=== PATIENT | female | born 1960 | race Hispanic/Latino ===

== ENCOUNTER 2021-12-25 20:51 | Observation (INO) | payer SELFPAY ==
[2021-12-25] VITALS (8 sets, daily range): BP systolic 207–225; BP diastolic 81; PULSE 88–93; RESP 13–19; TEMP 36.6; O2SAT 99–100
--- NOTE | ~2021-12-25 | CT_ITS ---
EXAMINATION: CT brain wo con DATE: 12/25/2021 21:47 INDICATION: Weakness. Prior CVA. Headache. TECHNIQUE: Computed tomography (CT) of the head was performed without intravenous contrast. The dose- length product was 605.33 mGy-cm. Automated exposure control and iterative reconstruction technique w ere employed. COMPARISON: CT dated 01/01/2019 FINDINGS: There are sequela of large left hemispheric paranasal sinuses and mastoids are pneumatized. No depressed skull fractures. Infarction involving the parietal lobe and occipital lobe as well as t he left basal ganglia. There is encephalomalacia with compensatory dilation of the left lateral ventr icle. No significant midline shift. No acute infarction, hemorrhage, mass or mass effect. IMPRESSION: 1. No acute intracranial abnormality. No significant interval change. Reviewed, dictated and finalized at location A.
--- NOTE | ~2021-12-25 | XR_ITS ---
XR chest 1V portable 12/25/2021 21:40 Indication: Weakness and headache. Procedure: AP portable chest Comparison: Comparison to multiple prior studies sequentially, with oldest reviewed study dated 09/2018. Findings: Cardiomegaly. No focal air space disease, pulmonary edema, pleural effusion or suspected pn eumothorax. Impression: 1: No acute cardiopulmonary disease. Reviewed, dictated and finalized at location A. Impression: 1: No acute cardiopulmonary disease.
--- NOTE | ~2021-12-25 | MR_ITS ---
EXAMINATION: MR brain/brain stem wo con DATE: 12/26/2021 14:27 INDICATION: Altered mental status. TECHNIQUE: Magnetic resonance imaging (MRI) of the brain and brainstem was performed without intraven ous contrast. COMPARISON: Brain MRI 08/03/2018, head CT 12/25/2021 FINDINGS: There is an old infarct involving the left frontal, parietal, temporal, and occipital lobes , left insula, lateral aspect of the left basal ganglia, and left thalamus in the expected distributi on of left middle cerebral artery. There is chronic Wallerian degeneration involving left cerebral pe duncle and farrukh. There is a small old microhemorrhage in left thalamus. There are scattered areas of nonspecific increased T2-weighted signal intensity in the right-sided cerebral white matter, which is within normal limits for the patient's age. There is no intracranial hemorrhage, acute infarction, o r abnormal intracranial mass lesion. There is ex vacuo dilatation of left lateral ventricle. The orbi ts are normal. There is mild mucosal thickening in the paranasal sinuses. The mastoid air cells are n ormal. IMPRESSION: 1. Old infarct in the expected distribution of left middle cerebral artery. Reviewed, dictated and finalized at location A.
--- NOTE | 2021-12-25 21:19 | ECG_ITS ---
Measurements Intervals [place] Rate: 89 P: 63 AR: 183 QRS: -6 QRSD: 79 T: 59 QT: 359 QTc: 438 Interpretive Statements SINUS RHYTHM LEFT VENTRICULAR HYPERTROPHY AND ST-T CHANGE INFERIOR INFARCT, AGE INDETERMINATE ABNORMAL ECG COMPARED TO ECG 01/01/2019 20:51:31 MYOCARDIAL INFARCT FINDING NOW PRESENT Electronically Signed On 12-25-2021 21:41:13 CDT by Yosvany Markham D.O.
--- NOTE | 2021-12-25 21:22 | ED.GENADULT ---
HPI - General Adult General Chief complaint: Altered Mental Status Stated complaint: altered mental status Time Seen by Provider: 12/25/21 21:11 History of Present Illness HPI narrative: Patient 61-year-old female who presents the emergency department with chief complaint of weakness. Per the patient's family the patient was eating and then became unresponsive. Patient also has been complaining of frequency and burning with urination. Per the family she had a stroke in 2019 and has weakness on her right side and also having difficulty with expressing words. Related Data Home Medications Medication Instructions Recorded Confirmed amlodipine 5 mg tablet 5 mg PO DAILY 01/31/19 01/31/19 aspirin 81 mg chewable tablet 81 mg PO DAILY 01/31/19 01/31/19 atorvastatin 40 mg tablet 40 mg PO DAILY 01/31/19 01/31/19 gabapentin 300 mg capsule 300 mg PO TID 01/31/19 01/31/19 insulin glulisine U-100 100 20 unit subcut HS 01/31/19 01/31/19 unit/mL subcutaneous pen lisinopril 40 mg tablet (Zestril) 40 mg PO DAILY 01/31/19 01/31/19 metformin 1,000 mg tablet 1,000 mg PO BID 01/31/19 01/31/19 metoprolol tartrate 50 mg tablet 50 mg PO Q12H 01/31/19 01/31/19 sertraline 100 mg tablet 100 mg PO DAILY 01/31/19 01/31/19 Allergies Allergy/AdvReac Type Severity Reaction Status Date / Time No Known Allergies Allergy Unknown Verified 01/01/19 22:02 No Known Allergies Allergy Uncoded 01/01/19 22:02 Review of Systems Review of Systems: A 10 system review of systems was completed on the patient and is negative except for what is stated in the HPI. Nursing and ancillary documentation was reviewed. PMFSH Social History Social History Smoking status: Never smoker Comments CVA, hypertension, diabetes, high cholesterol Exam Narrative: GENERAL: Well-appearing, well-nourished, and in no acute distress. HEAD: Normocephalic, atraumatic. EYES: PERRLA and EOMI. ENT: Nares clear, no rhinorrhea or epistaxis. Mucous membranes moist. NECK: Supple. CHEST: Clear to auscultation. No respiratory distress. HEART: Regular rate and rhythm. No murmur heard. Normal peripheral pulses. ABDOMEN: Soft, nontender, nondistended, normal active bowel sounds. EXTREMITIES: Right-sided weakness. No edema. SKIN: Warm, dry, no rash. NEURO: No focal deficits. Alert and oriented x3. PSYCH: Normal mood and affect. Course Vital Signs Vital signs: Vital Signs Temperature 36.6 C 12/25/21 20:55 Pulse Rate 89 12/25/21 20:55 Respiratory Rate 18 12/25/21 20:55 Blood Pressure 225/81 H 12/25/21 20:55 Pulse Oximetry 100 12/25/21 20:55 Oxygen Delivery Room Air 12/25/21 20:55 Temperature 36.6 C 12/25/21 20:55 Pulse Rate 90 12/25/21 21:10 Respiratory Rate 18 12/25/21 20:55 Blood Pressure 225/81 H 12/25/21 20:55 Pulse Oximetry 100 12/25/21 20:55 Oxygen Delivery Room Air 12/25/21 20:55 Medical Decision Making Vital Signs Vital Signs: Vital Signs Temperature 36.6 C 12/25/21 20:55 Pulse Rate 89 12/25/21 20:55 Respiratory Rate 18 12/25/21 20:55 Blood Pressure 225/81 H 12/25/21 20:55 Pulse Oximetry 100 12/25/21 20:55 Oxygen Delivery Room Air 12/25/21 20:55 Temperature 36.6 C 12/25/21 20:55 Pulse Rate 90 12/25/21 21:10 Respiratory Rate 18 12/25/21 20:55 Blood Pressure 225/81 H 12/25/21 20:55 Pulse Oximetry 100 12/25/21 20:55 Oxygen Delivery Room Air 12/25/21 20:55 Discharge Plan Discharge Prescriptions: No Action atorvastatin 40 mg Tablet 40 mg PO DAILY sertraline 100 mg Tablet 100 mg PO DAILY amlodipine 5 mg Tablet 5 mg PO DAILY metformin 1,000 mg Tablet 1,000 mg PO BID metoprolol tartrate 50 mg Tablet 50 mg PO Q12H gabapentin 300 mg Capsule 300 mg PO TID aspirin 81 mg Tablet,Chewable 81 mg PO DAILY lisinopril [Zestril] 40 mg Tablet 40 mg PO DAILY i
[2021-12-25 23:10] LABS: Basophils Absolute Auto 0.1 K/mm3 (0.0-0.1); Basophils Percent Auto 0.8 % (0.2-1.2); Eosinophils Absolute Auto 0.2 K/mm3 (0-0.3); Eosinophils Percent Auto 2.2 % (0-4.4); Hematocrit 27.2 % (37.0-47.0); Hemoglobin 8.6 g/dL (12.0-15.0); Immature Granulocyte Absolute 0.03 K/mm3 (0.00-0.031); Immature Granulocyte Percent A 0.3 % (0-0.5); Lymphocytes Absolute Auto 2.08 K/mm3 (0.9-3.2); Lymphocytes Percent Auto 22.6 % (18.3-44.2); Mean Corpuscular HGB Conc 31.6 g/dl (32-36); Mean Corpuscular Hemoglobin 28.8 pg (26-34); Mean Platelet Volume 10.4 fl (7.4-10.4); Monocytes Absolute Auto 0.4 K/mm3 (0.1-0.6); Monocytes Percent Auto 4.5 % (2.6-8.5); Neutrophils Absolute Auto 6.4 K/mm3 (1.3-6.7); Neutrophils Percent Auto 69.6 % (45.5-73.1); Platelet Count Result 323 k/mm3 (150-375); Red Blood Count 2.99 M/mm3 (4.2-5.4); Red Cell Distribution Width 12.3 % (11.5-14.5); White Blood Count 9.2 K/mm3 (4.5-10.0)
[2021-12-25 23:20] LABS: Alanine Aminotransferase 22 U/L (6-35); Albumin Level 3.7 g/dL (3.5-5.1); Alkaline Phosphatase 81 U/L (38-126); Anion Gap 11 mmol/L (8-16); Aspartate Amino Transferase 22 U/L (14-36); Bilirubin,Total 0.6 mg/dL (0.2-1.3); Blood Urea Nitrogen 31 mg/dL (7-17); Calcium 8.8 mg/dL (8.4-10.2); Carbon Dioxide 25 mmol/L (22-30); Chloride 98 mmol/L (98-107); Estimated Glomerular Filt Rate 33; Glucose 230 mg/dL (65-110); Magnesium 1.6 mg/dL (1.6-2.3); Potassium 4.3 mmol/L (3.4-5.0); Sodium 134 mmol/L (137-145)
[2021-12-25 23:23] LABS: INR 1.2; Partial Thromboplastin Time 28.7 SECONDS (22.3-36.8); Prothrombin Time 14.7 Seconds (11.1-14.7)
[2021-12-25 23:45] LABS: Troponin I 0.051 ng/mL (0.000-0.034)
[2021-12-26] VITALS (16 sets, daily range): BP systolic 154–206; BP diastolic 60–99; PULSE 77–87; RESP 14–20; TEMP 36.3–36.9; O2SAT 97–100; BMI 28.9
[2021-12-26 01:11] LABS: Appearance Urine Clear (Clear); Bilirubin Urine Negative (Negative); Color Urine Yellow (Yellow); Glucose Urine UA Trace mg/dL (Negative); Ketones Urine Negative (Negative); Leukocyte Esterase Ur 1+ LEU/UL (Negative); Nitrate Urine Negative (Negative); Protein Urine 2+ mg/dL (Negative); Urobilinogen Urine 0.2 mg/dL (<2.0)
[2021-12-26 01:13] LABS: Add Urine Microscopic? YES; Blood Urine Trace (Negative)
[2021-12-26 01:19] LABS: Bacteria Urine 3+ /hpf; RBC Urine 0-2 /hpf (0-2); WBC Urine 0-3 /hpf
[2021-12-26 02:45] LABS: Troponin I 0.053 ng/mL (0.000-0.034)
--- NOTE | 2021-12-26 02:56 | PM.IMHP ---
H&P: HPI History of Present Illness Date/Time: 12/26/21 02:56 Chief Complaint: nausea and vomiting PMFSH Social History Social History Smoking status: Never smoker Alcohol intake: never Substance use: never Spiritual care concerns: No Meds Home Medications and Allergies Home Medications Medication Instructions Recorded Confirmed Type aspirin 81 mg chewable tablet 81 mg PO DAILY 01/31/19 12/26/21 History atorvastatin 40 mg tablet 40 mg PO DAILY 01/31/19 12/26/21 History metformin 1,000 mg tablet 1,000 mg PO BID 01/31/19 12/26/21 History sertraline 100 mg tablet 100 mg PO DAILY 01/31/19 12/26/21 History insulin detemir U-100 100 unit/mL 10 unit subcut DAILY 12/26/21 12/26/21 History subcutaneous solution (Levemir U-100 Insulin) lisinopril 20 1 tablet PO DAILY 12/26/21 12/26/21 History mg-hydrochlorothiazide 25 mg tablet Allergies Allergy/AdvReac Type Severity Reaction Status Date / Time No Known Allergies Allergy Unknown Verified 01/01/19 22:02 No Known Allergies Allergy Uncoded 01/01/19 22:02 Vital Signs Vital Signs - 24 hr 12/25/21 20:55 12/25/21 21:10 12/25/21 21:05 Temperature 97.8 F Pulse Rate 89 90 93 Respiratory Rate 18 19 Blood Pressure 225/81 H Pulse Oximetry 100 Oxygen Delivery Room Air 12/25/21 21:09 12/25/21 21:15 12/25/21 21:17 Temperature Pulse Rate 90 89 91 Respiratory Rate 18 19 19 Blood Pressure 225/81 H 207/81 H Pulse Oximetry 99 100 100 Oxygen Delivery 12/25/21 22:02 12/25/21 22:15 Temperature Pulse Rate 88 90 Respiratory Rate 13 16 Blood Pressure Pulse Oximetry 99 Oxygen Delivery H&P: Results Labs Labs: Short CBC 12/25/21 Range/Units 23:04 WBC 9.2 (4.5-10.0) K/mm3 Hgb 8.6 L (12.0-15.0) g/dL Hct 27.2 L (37.0-47.0) % Plt Count 323 (150-375) k/mm3 [facility] 12/25/21 23:04 Sodium 134 L Potassium 4.3 Chloride 98 Carbon Dioxide 25 BUN 31 H Creatinine 1.60 H Glucose 230 H Calcium 8.8 Cardiac Enzymes 12/25/21 12/26/21 Range/Units 23:04 02:13 Troponin I 0.051 H* 0.053 H* (0.000-0.034) ng/mL Liver Function 12/25/21 Range/Units 23:04 Total Bilirubin 0.6 (0.2-1.3) mg/dL AST 22 (14-36) U/L ALT 22 (6-35) U/L Alkaline Phosphatase 81 (38-126) U/L Albumin 3.7 (3.5-5.1) g/dL Urine 12/26/21 Range/Units 01:00 Urine Color Yellow (Yellow) Urine Appearance Clear (Clear) Urine pH 6.0 (5.0-9.0) Ur Specific [place] 1.010 (1.001-1.035) Urine Protein 2+ H (Negative) mg/dL Urine Glucose (UA) Trace H (Negative) mg/dL Assessment and Plan Assessment and plan (1) Urinary tract infection: Code(s): N39.0 - Urinary tract infection, site not specified Status: Acute (2) Chronic arterial ischemic stroke: Code(s): I69.30 - Unspecified sequelae of cerebral infarction Status: Acute (3) Right hemiparesis: Code(s): G81.91 - Hemiplegia, unspecified affecting right dominant side Status: Acute (4) Expressive aphasia: Code(s): R47.01 - Aphasia Status: Acute
[2021-12-26 03:28] LABS: SARS-CoV-2 RNA PCR Negative
[2021-12-26] MEDS: SODIUM CHLORIDE 0.9% IV 1,000 ML 125 ML IV CONT (04:14)
[2021-12-26] MEDS: ASPIRIN 81 MG CHEWABLE TABLET 324 MG PO (04:15)
--- NOTE | 2021-12-26 04:17 | PC.NURSE ---
Brandi Lopez RN, Job Foreman informed this nurse that 3 attempts were made to use the [employer] automatic pinsetter mechanic with 3 different interpreters, all who the patient was unable to understand. Son is currently at bedside.
--- NOTE | 2021-12-26 04:18 | ADMGEN ---
This patient, Rafaela Hale, was admitted to IMU Room 202-01. Patient/family oriented to hospital policies and general routines including ID bracelet, bed and alarms, visiting hours, pain management, procedures, bathroom and other care routines, personal items, smoking policy, room service/diet, and visiting hours. Information on how to activate the Rapid Response Team has been discussed. Patient/Family are encouraged to report perceived risks to care and to ask questions if they do not understand what they are told or what they should do.
[2021-12-26 05:28] LABS: Hematocrit 27.5 % (37.0-47.0); Hemoglobin 8.6 g/dL (12.0-15.0)
[2021-12-26 05:54] LABS: Troponin I 0.045 ng/mL (0.000-0.034)
[2021-12-26 09:45] LABS: Hematocrit 25.9 % (37.0-47.0); Hemoglobin 8.3 g/dL (12.0-15.0)
[2021-12-26] MEDS: SERTRALINE HCL 50 MG TABLET 100 MG PO (10:50)
[2021-12-26] MEDS: INSULIN GLARGINE (*BKC) 100 UNITS/ML 10 UNITS SUB-Q (10:50)
[2021-12-26] MEDS: ASPIRIN 81 MG CHEWABLE TABLET PO (10:50)
[2021-12-26] MEDS: ATORVASTATIN 40 MG TABLET PO (10:50)
[2021-12-26 11:03] LABS: Glucose Point of Care 243 mg/dl (65-105)
--- NOTE | 2021-12-26 11:28 | PM.IMPN ---
Progress Note: A&P Assessment and Plan (1) Urinary tract infection: Code(s): N39.0 - Urinary tract infection, site not specified Status: Acute (2) Chronic arterial ischemic stroke: Code(s): I69.30 - Unspecified sequelae of cerebral infarction Status: Acute (3) Right hemiparesis: Code(s): G81.91 - Hemiplegia, unspecified affecting right dominant side Status: Acute (4) Expressive aphasia: Code(s): R47.01 - Aphasia Status: Acute Plan # altered mental status. CT head with no acute intracranial abnormality. No significant interval change. There are sequela of large left hemispheric paranasal sinuses and mastoids are pneumatized. Infarction involving the parietal lobe and occipital lobe as well as left basal ganglia. There is in couple of malacia with compensatory dilation of the left lateral ventricle with no significant midline shift. She is on aspirin 81 mg daily and atorvastatin. She was given aspirin 325 mg at night and was also started on ceftriaxone for suspected UTI. Her underlying history of stroke and large encephalomalacia I suspect she might have seizure. Will get an EEG. Will also check CK level. And lactate level. She is back to her baseline and will monitor for any further recurrence of her symptoms. Neurology will be consulted for further evaluation. If recurrence happen we can start her on Keppra. History do not suggestive hypoglycemic attack. # generalized weakness: Found to have questionable UTI positive leukocyte esterase however WBC 0-3. COVID swab negative. She does have CARMEN with creatinine of 1.6. BUN is up to 31 with a baseline 7-8. Troponins are mildly elevated with a flat trajectory. Not suggestive of acute coronary syndrome. Likely due to her underlying renal insufficiency. EKG performed showed nonspecific ST-T changes when compared to previous EKG in 2019 similar changes were also reviewed. Will get echocardiogram. Echo on 2019 showed ejection fraction 60-65% moderate aortic valve sclerosis moderate thickness of the mitral valve the fluids moderate mitral annular calcification. X-ray with no acute cardiopulmonary disease # history of stroke with right sided hemiplegia 2019 # Anemia acute on chronic hemoglobin at 8. Baseline around 10-11 in 2019 # CARMEN creatinine 1.6. Baseline 0.8 back in 2019 # type 2 diabetes with neuropathy and history of foot ulcers in the past on insulin at home # hypertension blood pressure uncontrolled on admission. On lisinopril hydrochlorothiazide at home. With CARMEN he will hold lisinopril hydrochlorothiazide start amlodipine 5 mg daily # DVT prophylaxis Lovenox # code status full code Subjective Date/time seen: 12/26/21 11:28 Interval history: HPI : Patient 61-year-old female who presents the emergency department with chief complaint of weakness.? Per the patient's family the patient was eating and then became unresponsive.? Patient also has been complaining of frequency and burning with urination.? Per the family she had a stroke in 2019 and has weakness on her right side and also having difficulty with expressing words. 12/26/2021 at around 8:30 a.m. patient was noted to be unresponsive while watching TV. She had a meal at 6:00 a.m. she does not take any insulin with this. There have not able to check blood sugar and called 911 while on phone with 911 the patient became more awake however was looking confused. While unresponsive when her daughter tried to wake her up she noted her eyes were rolled back. She did not see any other abnormal movements in her arms or her legs. No tongue bite or urinary incontinence noted. She does not have any history of seizures prior to this. She checked her blood pressure and was noted to be elevated. She did not check her blood sugar but was checked upon arrival of EMS when it was more than 200. They did give a sip of orange juice prior to arrival of EMS. Review of Systems Review of Sys
[2021-12-26 12:21] LABS: Glucose Point of Care 290 mg/dl (65-105)
[2021-12-26 12:43] LABS: Creatine Kinase 31 U/L (30-135)
[2021-12-26] MEDS: amLODIPine BESYLATE 5 MG TABLET PO (13:51)
[2021-12-26] MEDS: ENOXAPARIN 40 MG/0.4 ML SYRINGE SUB-Q (13:51)
[2021-12-26 15:05] LABS: Hematocrit 25.2 % (37.0-47.0)
[2021-12-26 15:18] LABS: Lactic Acid Reflex 1.6 mmol/L (0.7-2.0)
[2021-12-26 18:16] LABS: Glucose Point of Care 343 mg/dl (65-105)
[2021-12-26] MEDS: INSULIN ASPART (*BKC) 100 UNITS/ML SUB-Q (18:30)
[2021-12-26 19:58] LABS: Glucose Point of Care 342 mg/dl (65-105)
[2021-12-26] MEDS: lisinopriL 10 MG TABLET PO (20:39)
[2021-12-26] MEDS: ACETAMINOPHEN 500 MG TABLET 1000 MG PO (20:39)
[2021-12-26] MEDS: INSULIN ASPART (*BKC) 100 UNITS/ML 6 UNITS SUB-Q (20:53)
[2021-12-26 21:27] LABS: Hematocrit 24.6 % (37.0-47.0); Hemoglobin 7.5 g/dL (12.0-15.0)
[2021-12-27] VITALS (13 sets, daily range): BP systolic 152–211; BP diastolic 64–88; PULSE 76–89; RESP 16–20; TEMP 36.1–36.8; O2SAT 96–100
--- NOTE | 2021-12-27 | ECHO_ITS ---
Patient Info Name: Rafaela Hale Age: 61 years : 1960 Gender: Female Ht: 64 in Wt: 168 lbs BSA: 1.88 m2 HR: 77 bpm BP: 152 / 88 mmHg Heart Rhythm: Sinus Rhythm Technical Quality: Fair Exam Date: 12/27/2021 10:20 AM Exam Location: [facility] Patient Status: Inpatient Admit Date: 12/26/2021 Staff Ordering Physician: Joselito Vines MD Stores Clerk: Kimmy Oseguera RDCS Attending Provider: Joselito Vines MD Exam Type: CA echo dop color flow w con Study Info Complete two-dimensional, color flow and Doppler transthoracic echocardiogram is performed with contrast to opacify the left ventricle and to improve the deliniation of the left ventricle endocardial borders. Contrast/Agitated Saline Contrast/Ag. Saline: Definity Amount: 3.00 ml Administered By: Kimmy Oseguera RDCS Existing IV Access: Yes IV Access Condition: patent with no signs of infiltration Summary 1. Left ventricular chamber dimension is normal. 2. Left ventricular systolic function is normal, estimated at 65-70%. 3. There is moderately increased left ventricular wall thickness. 4. The left ventricular diastolic function is grade I diastolic dysfunction. 5. E/e' 13 is mildly elevated. 6. Left atrial chamber dimension is mildly enlarged. 7. There is moderate aortic valve sclerosis. 8. There is mild aortic valve stenosis with a peak velocity of 247.83 cm/s, mean gradient of 11 mmHg, and aortic valve area of 1.56 cm2. 9. The mitral valve has severely calcified annulus. 10. No pulmonary hypertension, estimated pulmonary arterial systolic pressure is 21 mmHg. Left Ventricle E/e' 13 is mildly elevated. Left ventricular chamber dimension is normal. Left ventricular systolic function is normal, estimated at 65-70%. There is moderately increased left ventricular wall thickness. The left ventricular diastolic function is grade I diastolic dysfunction. Right Ventricle Right ventricular systolic function is normal and with normal TAPSE 2.3 cm. Right ventricular chamber dimension is normal. Left Atria Left atrial chamber dimension is mildly enlarged. Right Atria Right atrial chamber dimension is normal. Aortic Valve The aortic valve is trileaflet. There is moderate aortic valve sclerosis. There is mild aortic valve stenosis with a peak velocity of 247.83 cm/s, mean gradient of 11 mmHg, and aortic valve area of 1.56 cm2. There is no aortic valve regurgitation. Pulmonic Valve There is no pulmonic regurgitation. Mitral Valve The mitral valve has severely calcified annulus. There is no mitral valve stenosis. There is no mitral valve regurgitation. Tricuspid Valve There is no tricuspid valve regurgitation. No pulmonary hypertension, estimated pulmonary arterial systolic pressure is 21 mmHg. Pericardium/Pleural There is no pericardial effusion. Inferior Vena Cava Normal inferior vena cava with >50% collapse upon inspiration consistent with normal right atrial pressure, 5 mmHg. Aorta The aortic root size at the sinus of Valsalva is normal. Left Ventricular Outflow Tract Name Value Normal LVOT 2D LVOT Diameter 1.96 cm LVOT Dopp
[2021-12-27 05:32] LABS: Basophils Absolute Auto 0.1 K/mm3 (0.0-0.1); Basophils Percent Auto 0.8 % (0.2-1.2); Eosinophils Absolute Auto 0.2 K/mm3 (0-0.3); Eosinophils Percent Auto 2.8 % (0-4.4); Hematocrit 25.2 % (37.0-47.0); Hemoglobin 7.9 g/dL (12.0-15.0); Immature Granulocyte Absolute 0.02 K/mm3 (0.00-0.031); Immature Granulocyte Percent A 0.3 % (0-0.5); Lymphocytes Absolute Auto 1.82 K/mm3 (0.9-3.2); Lymphocytes Percent Auto 29.8 % (18.3-44.2); Mean Corpuscular HGB Conc 31.3 g/dl (32-36); Mean Corpuscular Hemoglobin 28.5 pg (26-34); Mean Platelet Volume 10.9 fl (7.4-10.4); Monocytes Absolute Auto 0.4 K/mm3 (0.1-0.6); Monocytes Percent Auto 6.9 % (2.6-8.5); Neutrophils Absolute Auto 3.6 K/mm3 (1.3-6.7); Neutrophils Percent Auto 59.4 % (45.5-73.1); Platelet Count Result 300 k/mm3 (150-375); Red Blood Count 2.77 M/mm3 (4.2-5.4); Red Cell Distribution Width 12.1 % (11.5-14.5); White Blood Count 6.1 K/mm3 (4.5-10.0)
[2021-12-27 05:45] LABS: Alanine Aminotransferase 17 U/L (6-35); Albumin Level 3.4 g/dL (3.5-5.1); Alkaline Phosphatase 67 U/L (38-126); Anion Gap 9 mmol/L (8-16); Aspartate Amino Transferase 19 U/L (14-36); Bilirubin,Total 0.2 mg/dL (0.2-1.3); Blood Urea Nitrogen 26 mg/dL (7-17); Calcium 8.6 mg/dL (8.4-10.2); Carbon Dioxide 29 mmol/L (22-30); Chloride 100 mmol/L (98-107); Estimated CRCL calculation 35 ml/min; Estimated Glomerular Filt Rate 35; Glucose 206 mg/dL (65-110); Magnesium 1.6 mg/dL (1.6-2.3); Potassium 3.9 mmol/L (3.4-5.0); Sodium 138 mmol/L (137-145)
[2021-12-27 08:01] LABS: Glucose Point of Care 234 mg/dl (65-105)
--- NOTE | 2021-12-27 08:51 | PM.IMPN ---
Progress Note: A&P Assessment and Plan (1) Urinary tract infection: Code(s): N39.0 - Urinary tract infection, site not specified Status: Acute (2) Chronic arterial ischemic stroke: Code(s): I69.30 - Unspecified sequelae of cerebral infarction Status: Acute (3) Right hemiparesis: Code(s): G81.91 - Hemiplegia, unspecified affecting right dominant side Status: Acute (4) Expressive aphasia: Code(s): R47.01 - Aphasia Status: Acute Plan # altered mental status. CT head with no acute intracranial abnormality. No significant interval change. There are sequela of large left hemispheric paranasal sinuses and mastoids are pneumatized. Infarction involving the parietal lobe and occipital lobe as well as left basal ganglia. There is encephalomalacia with compensatory dilation of the left lateral ventricle with no significant midline shift. She is on aspirin 81 mg daily and atorvastatin. She was given aspirin 325 mg at night and was also started on ceftriaxone for suspected UTI. Her underlying history of stroke and large encephalomalacia I suspect she might have seizure. EEG pending. CK level came back normal. Lactate level was normal. She back to her baseline and will monitor for any further recurrence of her symptoms. Neurology will be consulted for further evaluation. If recurrence happen we can start her on Keppra. History do not suggestive hypoglycemic attack. MRI brain with no acute stroke. Findings of old stroke as seen before. # generalized weakness: Found to have questionable UTI positive leukocyte esterase however WBC 0-3. COVID swab negative. She does have CARMEN with creatinine of 1.6. BUN is up to 31 with a baseline 7-8. Troponins are mildly elevated with a flat trajectory. Not suggestive of acute coronary syndrome. Likely due to her underlying renal insufficiency. EKG performed showed nonspecific ST-T changes when compared to previous EKG in 2019 similar changes were also reviewed. Echo pending. Has a systolic murmur on examination. on 2019 showed ejection fraction 60-65% moderate aortic valve sclerosis moderate thickness of the mitral valve the fluids moderate mitral annular calcification. X-ray with no acute cardiopulmonary disease # history of stroke with right sided hemiplegia 2019 # Anemia acute on chronic hemoglobin at 8. Baseline around 10-11 in 2019 # CARMEN creatinine 1.6. Baseline 0.8 back in 2019. Currently 1.5 with hydration. Likely chronic kidney disease stage 3 # type 2 diabetes with neuropathy and history of foot ulcers in the past on insulin at home # hypertension blood pressure uncontrolled on admission. On lisinopril hydrochlorothiazide at home. With CARMEN he will hold lisinopril hydrochlorothiazide start amlodipine 5 mg daily. Restarted lisinopril 10 mg daily in the evening. Will increase amlodipine to 10 mg daily today # DVT prophylaxis Lovenox # code status full code Subjective Date/time seen: 12/27/21 08:51 Interval history: HPI : Patient 61-year-old female who presents the emergency department with chief complaint of weakness.? Per the patient's family the patient was eating and then became unresponsive.? Patient also has been complaining of frequency and burning with urination.? Per the family she had a stroke in 2019 and has weakness on her right side and also having difficulty with expressing words. 12/26/2021 at around 8:30 a.m. patient was noted to be unresponsive while watching TV. She had a meal at 6:00 a.m. she does not take any insulin with this. There have not able to check blood sugar and called 911 while on phone with 911 the patient became more awake however was looking confused. While unresponsive when her daughter tried to wake her up she noted her eyes were rolled back. She did not see any other abnormal movements in her arms or her legs. No tongue bite or urinary incontinence noted. She does not have any history of sei
[2021-12-27] MEDS: INSULIN GLARGINE (*BKC) 100 UNITS/ML 10 UNITS SUB-Q (09:02)
[2021-12-27] MEDS: INSULIN ASPART (*BKC) 100 UNITS/ML SUB-Q ×4 (09:02→21:47)
[2021-12-27] MEDS: ASPIRIN 81 MG CHEWABLE TABLET PO (09:09)
[2021-12-27] MEDS: ATORVASTATIN 40 MG TABLET PO (09:09)
[2021-12-27] MEDS: SERTRALINE HCL 50 MG TABLET 100 MG PO (09:09)
[2021-12-27] MEDS: amLODIPine BESYLATE 5 MG TABLET 10 MG PO (09:16)
[2021-12-27] MEDS: PERFLUTREN LIPID MICROSPHERES 1.5 ML VIAL DILUTED TO 10 ML TOTAL VOLUME IV PUSH (10:55)
--- NOTE | 2021-12-27 10:55 | IVDEFINITY ---
Prior to administration of IV Definity the patient was educated on the risks and benefits of the imaging enhancing agent including potential adverse side effects. The patient verbalized understanding. Allergies were verified. No exclusion criteria were identified and at least one of the following inclusion criteria were met: 1) physician request, 2) patient technically difficult to image (per the [place] [employer] guidelines of two or more segments not discernable within the apical view), or 3) questionable left ventricular function. ?
--- NOTE | 2021-12-27 11:20 | WPDNEURCNPN ---
Assessment and Plan Assessment and plan (1) Observed seizure-like activity: Code(s): R56.9 - Unspecified convulsions Status: Acute Assessment and Plan: Patient with prior L MCA territory stroke, presenting after an episode of unresponsiveness with eyes rolled back. Concern for possible seizure given extensive encephalomalacia from prior stroke. - Obtain routine EEG Consult date: 12/27/21 Time Seen: 11:20 Reason for consult: Seizure-like activity HPI: Rafaela Hale is a 61 year old female with a history of HTN, DM, and L MCA territory stroke (with baseline R sided weakness and aphasia) presenting after an episode of seizure-like activity. Patient presented on 12/25 after she was found unresponsive while watching TV around 830AM. She was at baseline when she woke up that morning. Daughter witnessed the episode and noted that her eyes were rolled back. There were no other abnormal movements. No tongue biting or incontinence. Afterwards she appeared confused. EMS was called. Her blood glucose was >200. She was taken to [facility]. CT head showed old L MCA territory stroke, but no acute changes. UA was concerning for possible UTI. She had an MRI brain this morning which did not show any evidence of acute stroke. She is back to baseline and has not had any further episodes of seizure-like activity. She has never had seizures in the past. Review of Systems Review of Systems: ROS unobtainable: Yes unobtainable due to medical condition (patient has aphasia) PMFSH Social History Social History Smoking status: Never smoker Alcohol intake: never Substance use: never Spiritual care concerns: No Meds Home Medications and Allergies Home Medications Medication Instructions Recorded Confirmed Type aspirin 81 mg chewable tablet 81 mg PO DAILY 01/31/19 12/26/21 History atorvastatin 40 mg tablet 40 mg PO DAILY 01/31/19 12/26/21 History metformin 1,000 mg tablet 1,000 mg PO BID 01/31/19 12/26/21 History sertraline 100 mg tablet 100 mg PO DAILY 01/31/19 12/26/21 History insulin detemir U-100 100 unit/mL 10 unit subcut DAILY 12/26/21 12/26/21 History subcutaneous solution (Levemir U-100 Insulin) lisinopril 20 1 tablet PO DAILY 12/26/21 12/26/21 History mg-hydrochlorothiazide 25 mg tablet Allergies Allergy/AdvReac Type Severity Reaction Status Date / Time No Known Allergies Allergy Unknown Verified 01/01/19 22:02 Vital Signs Vital Signs - 24 hr 12/26/21 11:40 12/26/21 12:26 12/26/21 12:00 Temperature 36.4 C L Pulse Rate 85 82 Respiratory Rate 14 Blood Pressure 162/99 H Pulse Oximetry 100 Oxygen Delivery Room Air 12/26/21 12:00 12/26/21 14:00 12/26/21 16:00 Temperature Pulse Rate 85 80 Respiratory Rate 20 Blood Pressure Pulse Oximetry 100 Oxygen Delivery Room Air Room Air 12/26/21 16:00 12/26/21 16:00 12/26/21 18:00 Temperature 36.3 C L Pulse Rate 82 77 86 Respiratory Rate 16 Blood Pressure 183/73 H Pulse Oximetry 100 Oxygen Delivery 12/26/21 20:00 12/26/21 20:00 12/26/21 20:00 Temperature 36.5 C Pulse Rate 83 83 83 Respiratory Rate 18 18 Blood Pressure 206/82 H Pulse Oximetry 100 100 Oxygen Delivery Room Air 12/26/21 23:00 12/26/21 22:00 12/27/21 00:00 Temperature 36.6 C Pulse Rate 82 79 78 Respiratory Rate 16 Blood Pressure 154/60 H Pulse Oximetry 99 Oxygen Delivery 12/27/21 00:00 12/27/21 02:00 12/27/21 04:00 Temperature 36.8 C Pulse Rate 82 77 78 Respiratory Rate 16 16 Blood Pressure 152/88 H Pulse Oximetry 99 100 Oxygen Delivery Room Air 12/27/21 04:00 12/27/21 04:00 12/27/21 05:55 Temperature Pulse Rate 80 78 77 Respiratory Rate 16 Blood Pressure Pulse Oximetry 100 Oxygen Delivery Room Air 12/27/21 07:37 12/27/21 08:31 Temperature 36.1 C L Pulse Rate 76 Respiratory Rate 20 Blood Pressure
[2021-12-27 12:37] LABS: Glucose Point of Care 320 mg/dl (65-105)
[2021-12-27] MEDS: ENOXAPARIN 40 MG/0.4 ML SYRINGE SUB-Q (12:48)
[2021-12-27 16:27] LABS: Glucose Point of Care 311 mg/dl (65-105)
[2021-12-27] MEDS: hydrALAZINE HCL 20 MG/ML VIAL 10 MG IV PUSH (19:26)
[2021-12-27 19:53] LABS: Glucose Point of Care 313 mg/dl (65-105)
[2021-12-27] MEDS: lisinopriL 20 MG TABLET PO (20:31)
[2021-12-27 21:24] LABS: Glucose Point of Care 324 mg/dl (65-105)
--- NOTE | 2021-12-27 22:13 | PC.NURSE ---
This patient, Rafeala Hale, was transferred to [facility] on 12/27/21 at 2213. Personal belongings sent with patient. Report given to LEIA Mccarthy. Appropriate documentation sent with patient.
[2021-12-28 01:03] LABS: Glucose Point of Care 230 mg/dl (65-105)
[2021-12-28 05:26] LABS: Basophils Absolute Auto 0.1 K/mm3 (0.0-0.1); Basophils Percent Auto 0.8 % (0.2-1.2); Eosinophils Absolute Auto 0.2 K/mm3 (0-0.3); Eosinophils Percent Auto 2.7 % (0-4.4); Hematocrit 25.1 % (37.0-47.0); Hemoglobin 7.9 g/dL (12.0-15.0); Immature Granulocyte Absolute 0.03 K/mm3 (0.00-0.031); Immature Granulocyte Percent A 0.5 % (0-0.5); Lymphocytes Absolute Auto 1.67 K/mm3 (0.9-3.2); Lymphocytes Percent Auto 25.5 % (18.3-44.2); Mean Corpuscular HGB Conc 31.5 g/dl (32-36); Mean Corpuscular Hemoglobin 28.5 pg (26-34); Mean Corpuscular Volume 90.6 fl (80-100); Mean Platelet Volume 10.7 fl (7.4-10.4); Monocytes Absolute Auto 0.4 K/mm3 (0.1-0.6); Monocytes Percent Auto 6.3 % (2.6-8.5); Neutrophils Absolute Auto 4.2 K/mm3 (1.3-6.7); Neutrophils Percent Auto 64.2 % (45.5-73.1); Platelet Count Result 296 k/mm3 (150-375); Red Blood Count 2.77 M/mm3 (4.2-5.4); Red Cell Distribution Width 12.2 % (11.5-14.5); White Blood Count 6.6 K/mm3 (4.5-10.0)
[2021-12-28 05:45] LABS: Alanine Aminotransferase 17 U/L (6-35); Albumin Level 3.4 g/dL (3.5-5.1); Alkaline Phosphatase 66 U/L (38-126); Anion Gap 13 mmol/L (8-16); Aspartate Amino Transferase 18 U/L (14-36); Bilirubin,Total 0.2 mg/dL (0.2-1.3); Blood Urea Nitrogen 21 mg/dL (7-17); Calcium 8.5 mg/dL (8.4-10.2); Carbon Dioxide 26 mmol/L (22-30); Chloride 98 mmol/L (98-107); Estimated CRCL calculation 37 ml/min; Estimated Glomerular Filt Rate 38; Glucose 262 mg/dL (65-110); Magnesium 1.7 mg/dL (1.6-2.3); Potassium 3.6 mmol/L (3.4-5.0); Sodium 137 mmol/L (137-145)
[2021-12-28 08:42] LABS: Glucose Point of Care 264 mg/dl (65-105)
--- NOTE | 2021-12-28 08:57 | P.NEURO_ITS ---
Neurology EEG Report General Information Date of Study: 12/28/21 TEST Routine EEG DIAGNOSIS Seizure-like activity CONDITION OF RECORDING Awake, drowsy, asleep EEG NUMBER [id number] CLINICAL HISTORY Patient with prior L MCA territory stroke, presenting after an episode of unresponsiveness with eyes rolled back. Concern for possible seizure. EEG DESCRIPTION During the awake state with eyes closed the background consists of 9 Hz posterior dominant rhythm which attenuates appropriately with eye opening. The recording is continuous. There is a well developed anterior-posterior gradient. There is intermittent left hemispheric delta-theta range slowing. With drowsiness there is was waxing and waning of the dominant rhythm with eventual replacement by a mixture of beta, alpha, and theta activity. As the patient enters stage II sleep, symmetrical spindles are present. Arousal is unremarkable. There are no epileptiform discharges or seizures during this recording. Hyperventilation and photic stimulation were not performed. IMPRESSION This is an abnormal EEGs due to the presence of intermittent left hemispheric slowing which is indicative of focal cerebral dysfunction. There are no electr ographic seizures identified, nor are there any epileptiform discharges. Clinical correlation is recommended.
[2021-12-28 09:02] VITALS: BP 180/71; PULSE 90; RESP 16; TEMP 36.7; O2SAT 97
[2021-12-28] MEDS: INSULIN GLARGINE (*BKC) 100 UNITS/ML 10 UNITS SUB-Q (09:05)
[2021-12-28] MEDS: INSULIN ASPART (*BKC) 100 UNITS/ML SUB-Q ×2 (09:05→12:30)
[2021-12-28] MEDS: ASPIRIN 81 MG CHEWABLE TABLET PO (09:06)
[2021-12-28] MEDS: ATORVASTATIN 40 MG TABLET PO (09:06)
[2021-12-28] MEDS: amLODIPine BESYLATE 5 MG TABLET 10 MG PO (09:07)
[2021-12-28] MEDS: SERTRALINE HCL 50 MG TABLET 100 MG PO (09:07)
[2021-12-28 09:19] VITALS: BP 174/90
[2021-12-28] MEDS: hydrALAZINE HCL 20 MG/ML VIAL 10 MG IV PUSH (09:20)
[2021-12-28 09:55] VITALS: BP 156/86
[2021-12-28] MEDS: hydroCHLOROthiazide 25 MG TABLET PO (10:18)
[2021-12-28 12:18] LABS: Glucose Point of Care 339 mg/dl (65-105)
[2021-12-28] MEDS: ENOXAPARIN 40 MG/0.4 ML SYRINGE SUB-Q (12:30)
[2021-12-28 13:41] VITALS: BP 151/65; PULSE 65; RESP 16; TEMP 36.9; O2SAT 97
--- NOTE | 2021-12-28 14:46 | PM.DS ---
DS: Admitting Diagnosis Discharge Date 12/28/2021 Admitting Diagnosis altered mental status DS: Discharge Diagnosis Discharge Diagnosis (1) Urinary tract infection: Code(s): N39.0 - Urinary tract infection, site not specified Status: Acute (2) Chronic arterial ischemic stroke: Code(s): I69.30 - Unspecified sequelae of cerebral infarction Status: Acute (3) Right hemiparesis: Code(s): G81.91 - Hemiplegia, unspecified affecting right dominant side Status: Acute (4) Expressive aphasia: Code(s): R47.01 - Aphasia Status: Acute DS: Summary Hospital Course Hospital Course: # altered mental status.? CT head with no acute intracranial abnormality.? No significant interval change.? There are sequela of large left hemispheric paranasal sinuses and mastoids are pneumatized.? Infarction involving the parietal lobe and occipital lobe as well as left basal ganglia.? There is encephalomalacia with compensatory dilation of the left lateral ventricle with no significant midline shift.? She is on aspirin 81 mg daily and atorvastatin.? She was given aspirin 325 mg at night and was also started on ceftriaxone for suspected UTI.? Her underlying history of stroke and large encephalomalacia I suspect she might have seizure.? EEG negative for any active seizure.? CK level came back normal.? Lactate level was normal.? She? back to her baseline and will monitor for any further recurrence of her symptoms.? Neurology will be consulted for further evaluation.? If recurrence happen we can start her on Keppra.? History do not suggestive hypoglycemic attack.? MRI brain with no acute stroke.? Findings of old stroke as seen before. with extensive encephalomalacia possibility of recurrence with seizure and hence started on Keppra 500 mg b.i.d. discussed with neurology and agrees with plan # generalized weakness:? Found to have questionable UTI positive leukocyte esterase however WBC 0-3.? COVID swab negative.? She does have CARMEN with creatinine of 1.6.? BUN is up to 31 with a baseline 7-8.? Troponins are mildly elevated with a flat trajectory.? Not suggestive of acute coronary syndrome.? Likely due to her underlying renal insufficiency.? EKG performed showed nonspecific ST-T changes when compared to previous EKG in 2019 similar changes were also reviewed.? Echo reviewed with normal ejection fraction mild aortic stenosis grade 1 diastolic dysfunction similar to previous echocardiogram.? she Has a systolic murmur on examination. ? on 2019 showed ejection fraction 60-65% moderate aortic valve sclerosis moderate thickness of the mitral valve the fluids moderate mitral annular calcification.? X-ray with no acute cardiopulmonary disease # history of stroke with right sided hemiplegia 2019 # Anemia acute on chronic hemoglobin at 8.? Baseline around 10-11 in 2019 # CARMEN creatinine 1.6.? Baseline 0.8 back in 2019.? Currently 1.5 with hydration.? Likely chronic kidney disease stage 3. # type 2 diabetes with neuropathy and history of foot ulcers in the past on insulin at home # hypertension blood pressure uncontrolled on admission.? On lisinopril hydrochlorothiazide at home.? She used to be on metoprolol at home which then switch to lisinopril hydrochlorothiazide by primary care. Amlodipine has added for better blood pressure control blood pressure in 150 systolic by the discharge. These medications needs to be adjusted as an outpatient basis with her primary care. # DVT prophylaxis Lovenox # code status full code Time Spent with Patient Time attestation: Total time spent providing and/or coordinating discharge services:45 minutes Exam Narrative: GENERAL: Well-appearing, well-nourished, and in no acute distress. HEAD: Normocephalic, atraumatic. EYES: PERRLA and EOMI. ENT: Nares clear, no rhinorrhea or epistaxis.? Mucous membranes moist. NECK: Supple. Nontender CHEST: Clear to auscultation.? No respiratory distress. HEART: Regula
[2021-12-28 17:11] LABS: Glucose Point of Care 414 mg/dl (65-105)
[2021-12-28] MEDS: INSULIN ASPART (*BKC) 100 UNITS/ML 10 UNITS SUB-Q (17:38)
== END 2021-12-28 18:20 | disposition home or self-care (01) ==
LOC: ANHED 22:21 → ANHIMU 12-26 04:08 → ANH2MED 12-28 11:35
PROVIDERS: Admitting Provider Internal Medicine; Emergency Provider Emergency Medicine; PCP Physician Assistant; Visit Provider Internal Medicine
DX: N39.0 Urinary tract infection, site not specified (principal); R56.9 Unspecified convulsions; G93.89 Other specified disorders of brain; I69.351 Hemiplegia and hemiparesis following cerebral infarction affecting right dominant side; I69.320 Aphasia following cerebral infarction; N17.9 Acute kidney failure, unspecified; R53.1 Weakness; R94.31 Abnormal electrocardiogram [ECG] [EKG]; I25.2 Old myocardial infarction; R77.8 Other specified abnormalities of plasma proteins; D62 Acute posthemorrhagic anemia; I10 Essential (primary) hypertension; E11.40 Type 2 diabetes mellitus with diabetic neuropathy, unspecified; I70.0 Atherosclerosis of aorta; I08.0 Rheumatic disorders of both mitral and aortic valves; Z20.822 Contact with and (suspected) exposure to COVID-19; Z79.82 Long term (current) use of aspirin; Z79.4 Long term (current) use of insulin; Z79.84 Long term (current) use of oral hypoglycemic drugs; Z79.899 Other long term (current) drug therapy
CPT/HCPCS: 36415; 51701; 70450; 70551; 71045; 80053; 81001; 82550; 82948; 83605; 83735; 84443; 84484; 85014; 85018; 85025; 85610; 85730; 93005; 95816; 96365; 96372; 96375; 97110; 97162; 97165; 97530; 99285; A9270; C8929; C9803; G0378; J0360; J0696; J1650; J1815; J7030; Q9957; U0003; U0005

== ENCOUNTER 2024-01-07 12:05 | Inpatient (IN) | payer SELFPAY ==
[2024-01-07] VITALS (65 sets, daily range): BP systolic 82–159; BP diastolic 40–66; PULSE 60–105; RESP 13–32; TEMP 31.1–37; O2SAT 96–100; BMI 24.7
--- NOTE | ~2024-01-07 | XR_ITS ---
Portable chest x-ray Comparison: 01/16/2024 Clinical History: Respiratory failure Findings: Endotracheal tube, NG tube, and right IJ line are in place. Stable suspected focal left ba silar atelectasis or pneumonia. Right lung clear. Cardiomediastinal silhouette is stable. Bones and soft tissues are unremarkable. Impression: Stable probable left lower lobe atelectasis or pneumonia. Stable support tubes. Reviewed, dictated and finalized at location . Impression: Stable probable left lower lobe atelectasis or pneumonia. Stable support tubes.
--- NOTE | ~2024-01-07 | XR_ITS ---
EXAMINATION: XR chest 1V portable DATE: 01/26/2024 06:07 INDICATION: Respiratory failure. TECHNIQUE: A single frontal view of the chest was obtained. COMPARISON: Chest single view 01/25/2024 FINDINGS: There is mild atelectasis at left lung base. No pleural effusion or pneumothorax. The heart size is normal. The endotracheal tube tip is 4.1 cm above the alek. The nasogastric tube tip is be yond the inferior margin of the radiograph, but at least to the stomach. IMPRESSION: 1. Stable mild atelectasis at left lung base. Reviewed, dictated and finalized at location A.
--- NOTE | ~2024-01-07 | CT_ITS ---
CLINICAL INDICATION: Transient alteration of awareness, fever, acute kidney injury COMPARISON: 01/07/2024. TECHNIQUE: An enhanced CT of the abdomen and pelvis was performed utilizing multislice spiral Avieon ue reconstructed at 5 mm slice thickness. Coronal and sagittal reconstructions were performed. This CT examination was performed utilizing dose reduction techniques. DLP: 1284 mGy-cm FINDINGS/OBSERVATIONS: Chest: Dependent atelectasis and trace pleural effusion (an interval change from previous examination dated 01/07/2024). The lungs are otherwise clear. Orogastric tube identified extending into the stomach. Central venous catheter introducer courses within the right internal jugular vein and ends just above the right atrium. Endotracheal tube identified above the alek. The heart is enlarged, without pericardial effusion. Soft tissues of the chest: Moderate anasarca is now identified. Bones of the chest: No significant degenerative disease within the thoracic spine. Redemonstration of an 8 mm density within the anterior third of the T12 vertebral body, a nonspecific finding. No lytic lesions are present. Liver: The liver is enlarged measuring 19 cm in longitudinal dimension (an interval change from previ ous examination). Gallbladder and biliary system: Multiple stones are identified within the gallbladder, a nonspecific finding. The gallbladder is decompressed. Gallbladder wall calcifications are also noted. These findings are unchanged from prior. Pancreas: Evaluation of the pancreas is limited without the administration of intravenous contrast. The pancreatic duct is not dilated. Spleen: The spleen is not enlarged, and is of homogeneous attenuation Kidneys: Multiple punctate calcifications within the bilateral kidneys. Adrenal glands: Prominence of the bilateral adrenal glands, without a discrete mass identified. This finding is largely unchanged from prior study. Gastrointestinal tract: Fecal stasis within the colon and distending the rectum. Appendix:The appendix is of normal caliber (series 3, images [id number]). Vasculature: Densely calcified atherosclerotic disease within the abdominal aorta, the mesenteric vas culature within the pelvis. The inferior vena cava is flattened, suggestive of severe hypovolemia. Lymph nodes: Scattered nonpathologically enlarged or morphologically suspicious lymph nodes within th e retroperitoneum and at the root of the mesentery. Pelvic structures:The bladder is decompressed with a Clark catheter, limiting its evaluation Body wall and musculoskeletal: No significant degenerative disease within the lumbosacral spine. IMPRESSION: Interval enlargement of the liver, when compared with previous examination. Flattening of the inferior vena cava suggesting severe hypovolemia. Interval development of basilar atelectasis and trace bilateral pleural effusions. No additional findings which represents a change from prior examination performed 01/07/2024. Supportive devices are in good position. Redemonstration of multiple stones within the gallbladder which is not distended. Reviewed, dictated and finalized at location A. IMPRESSION: Interval enlargement of the liver, when compared with previous examination. Flattening of the inferior vena cava suggesting severe hypovolemia. Interval development of basilar atelectasis and trace bilateral pleural effusio ns. No additional findings which represents a change from prior examination perform ed 01/07/2024. Supportive devices are in good position. Redemonstration of multiple stones within the gallbladder which is not distende d.
--- NOTE | ~2024-01-07 | XR_ITS ---
EXAMINATION: XR chest 1V portable DATE: 01/23/2024 06:05 INDICATION: Intubated. TECHNIQUE: A single frontal view of the chest was obtained. COMPARISON: Chest single view 01/20/2024 FINDINGS: There is mild atelectasis at left lung base. No pleural effusion or pneumothorax. The heart size is normal. The endotracheal tube tip is 5.7 cm above the alek. The nasogastric tube tip is be yond the inferior margin of the radiograph, but at least to the stomach. A right internal jugular ratna tral venous catheter is seen with tip at the superior cavoatrial junction. IMPRESSION: 1. Stable mild atelectasis at left lung base. Reviewed, dictated and finalized at location A.
--- NOTE | ~2024-01-07 | XR_ITS ---
XR chest 1V portable 01/20/2024 06:15 Indication: Acute respiratory failure Procedure: AP portable chest Comparison: Comparison to multiple prior studies sequentially, with oldest reviewed study dated 01/01. Findings: Heart size upper normal. Endotracheal tube tip 2.7 cm above the alek. NG tube in the stom ach. Left basilar atelectasis. No focal pneumonia, edema, pleural effusion or pneumothorax. Impression: 1: No acute cardiopulmonary disease. Reviewed, dictated and finalized at location B. Impression: 1: No acute cardiopulmonary disease.
--- NOTE | ~2024-01-07 | CT_ITS ---
EXAMINATION: CT brain wo con DATE: 01/07/2024 13:40 INDICATION: Altered mental status TECHNIQUE: Computed tomography (CT) of the head was performed without intravenous contrast. Sagittal and coronal reconstructions were performed. The mA was adjusted according to patient size. Iterative reconstruction technique was employed. The dose-length product was 681.00 mGy-cm. COMPARISON: head CT dated 12/25/2021 and brain MR dated 12/26/2021 FINDINGS: A again seen is encephalomalacia consistent with chronic infarct involving the left frontal, parietal , temporal, and occipital lobes, left insula, lateral aspect of the left basal ganglia, and left thal amus in the expected distribution of left middle cerebral artery. There is chronic Wallerian degenera tion involving left cerebral peduncle and farrukh. There is associated expected dilation involving the l eft lateral ventricle. No acute intracranial hemorrhage, acute infarction or abnormal extra axial flu id collection. Additional more diffuse mild to moderate volume loss in the remainder of the brain wit h increased prominence of the sulci. There is mild scattered white matter hypoattenuation consistent with chronic small vessel ischemic disease. No mass/mass effect. Intracranial calcified cerebral ath erosclerosis is noted. The orbits, paranasal sinuses and mastoid air cells are normal. Debris/cerumen in the right external auditory canal. IMPRESSION: 1. No acute intracranial process. 2. Large region of encephalomalacia consistent with chronic infarct in the vascular distribution of t he left middle cerebral artery. 3. Additional more diffuse likely age-related mild to moderate diffuse volume loss and mild scattered white matter hypoattenuation consistent with chronic small vessel ischemic disease. Reviewed, dictated and finalized at location A. IMPRESSION: 1. No acute intracranial process. 2. Large region of encephalomalacia consistent with chronic infarct in the vasc ular distribution of the left middle cerebral artery. 3. Additional more diffuse likely age-related mild to moderate diffuse volume l oss and mild scattered white matter hypoattenuation consistent with chronic sma ll vessel ischemic disease.
--- NOTE | ~2024-01-07 | US_ITS ---
EXAMINATION: US venous doppler [facility] DATE: 01/15/2024 17:10 INDICATION: Fever. TECHNIQUE: Grayscale ultrasound images without and with compression and Doppler ultrasound images of the bilateral lower extremity veins were obtained. COMPARISON: None. FINDINGS: The visualized portions of right common femoral vein, profunda (deep) femoral vein, femoral vein, pop liteal vein, and greater saphenous vein outflow are patent. The calf veins are not well visualized. The visualized portions of left profunda femoral vein, femoral vein, popliteal vein, and greater saph enous vein outflow are patent. There is thrombus in left common femoral vein. The calf veins are not well visualized. IMPRESSION: 1. Deep vein thrombosis involving left common femoral vein. Reviewed, dictated and finalized at location A.
--- NOTE | ~2024-01-07 | XR_ITS ---
Portable chest x-ray Comparison: 01/10/2024 Clinical History: Respiratory failure Findings: Endotracheal tube, NG tube, and right IJ line are in place. There is focal left basilar at electasis. Right lung clear. Cardiomediastinal silhouette is stable. Bones and soft tissues are unre markable. Impression: Support tubes, as above. Probable basilar atelectatic change. Reviewed, dictated and finalized at location . Impression: Support tubes, as above. Probable basilar atelectatic change.
--- NOTE | ~2024-01-07 | XR_ITS ---
EXAMINATION: XR chest port-a-cath/central DATE: 01/24/2024 09:14 INDICATION: Central line placement. TECHNIQUE: A single frontal view of the chest was obtained. COMPARISON: Chest single view at 5:27 AM FINDINGS: There is mild atelectasis in left lower lung zone. No pleural effusion or pneumothorax. The heart size is normal. The endotracheal tube tip is 4.4 cm above the alek. The nasogastric tube tip is beyond the inferior margin of the radiograph, but at least to the stomach. A right internal jugul ar central venous catheter is seen with tip at the superior cavoatrial junction. IMPRESSION: 1. Central line tip at the superior cavoatrial junction. 2. Stable mild atelectasis in left lower lung zone. Reviewed, dictated and finalized at location A.
--- NOTE | ~2024-01-07 | XR_ITS ---
EXAMINATION: XR chest 1V DATE: 01/07/2024 13:45 INDICATION: Altered mental status. TECHNIQUE: frontal view of the chest was obtained. COMPARISON: Chest radiograph dated 12/25/2021 FINDINGS: The lungs are clear with no focal airspace opacities, pulmonary edema, pleural effusion or pneumothor ax. The cardiomediastinal silhouette is normal. Visualized bones and soft tissues are unremarkable. IMPRESSION: 1. No acute cardiopulmonary disease. Reviewed, dictated and finalized at location A.
--- NOTE | ~2024-01-07 | XR_ITS ---
EXAMINATION: XR chest 1V portable DATE: 01/27/2024 05:58 INDICATION: Respiratory failure. TECHNIQUE: A single frontal view of the chest was obtained. COMPARISON: Chest single view 01/26/2024 FINDINGS: There is no pneumonia, pleural effusion, or pneumothorax. The heart size is normal. The end otracheal tube tip is 4.5 cm above the alek. The nasogastric tube tip is in the stomach. IMPRESSION: 1. No acute cardiopulmonary disease. Reviewed, dictated and finalized at location A.
--- NOTE | ~2024-01-07 | XR_ITS ---
Portable chest x-ray Comparison: 01/07/2024 Clinical History: Respiratory failure Findings: Endotracheal tube, NG tube, and right IJ line are in place. Lungs are essentially clear. Cardiomediastinal silhouette is stable. Bones and soft tissues are unremarkable. Impression: Clear lungs. Support tubes, as above. Reviewed, dictated and finalized at location . Impression: Clear lungs. Support tubes, as above.
--- NOTE | ~2024-01-07 | XR_ITS ---
EXAMINATION: XR chest ET placement Exam Date/Time: 01/07/2024 14:15 CDT HISTORY: intubation Comparison: 01/07/2024 at 1:42 PM. RESULT: Lines, tubes, and devices: New endotracheal tube tip projects in the opening of the right mainstem b ronchus. Lungs and pleura: Patchy perihilar airspace disease, greater on the left. Cardiomediastinal silhouette: Stable. Other: No acute osseous or upper abdominal finding. IMPRESSION: Right mainstem bronchus intubation. Consider 4.5 cm retraction. Perihilar airspace disease worse on t he left, likely representing atelectasis. Results reported telephonically to Dr. Garland by Dr. Linton at 2:40 PM on 01/07/2024. Reviewed, dictated and finalized at location K. IMPRESSION: Right mainstem bronchus intubation. Consider 4.5 cm retraction. Perihilar airsp yasemin disease worse on the left, likely representing atelectasis. Results reported telephonically to Dr. Garland by Dr. Linton at 2:40 PM on 2023.
--- NOTE | ~2024-01-07 | XR_ITS ---
Portable chest x-ray Comparison: 01/14/2024 Clinical History: Respiratory failure Findings: Endotracheal tube, NG tube, and right IJ line are in place. Lungs are clear, without focal consolidation or pleural effusion. Cardiomediastinal silhouette is stable. Bones and soft tissues a re unremarkable. Impression: Clear lungs. Support tubes, as above. Reviewed, dictated and finalized at location . Impression: Clear lungs. Support tubes, as above.
--- NOTE | ~2024-01-07 | XR_ITS ---
EXAMINATION: XR chest 1V portable DATE: 01/25/2024 05:40 INDICATION: Respiratory failure. TECHNIQUE: A single frontal view of the chest was obtained. COMPARISON: Chest single view 01/24/2024 FINDINGS: The lung volumes are small. There is mild atelectasis in the lower lung zones. No pleural e ffusion or pneumothorax. The heart size is normal. The endotracheal tube tip is 2.4 cm above the ann na. A right internal jugular central venous catheter is seen with tip in the right atrium. The nasoga stric tube tip is in the distal stomach. IMPRESSION: 1. Small lung volumes with mild atelectasis in the lower lung zones. Reviewed, dictated and finalized at location A.
--- NOTE | ~2024-01-07 | US_ITS ---
EXAMINATION: US renal BI DATE: 01/08/2024 10:38 INDICATION: Acute kidney injury. TECHNIQUE: Multiple ultrasound grayscale images of the kidneys were obtained. COMPARISON: CT abdomen and pelvis 01/07/2024 FINDINGS: The right kidney measures 9.5 x 5.3 x 5.1 cm. The left kidney measures 11.1 x 5.8 x 4.5 cm. The kidne ys demonstrate normal parenchymal echogenicity. There is a 1.5 cm cyst in right kidney. There is no h ydronephrosis. The bladder is decompressed by a Clark catheter. IMPRESSION: 1. Normal kidney sizes. No hydronephrosis. Reviewed, dictated and finalized at location A.
--- NOTE | ~2024-01-07 | CT_ITS ---
EXAMINATION: CT abdomen pelvis wo con DATE: 01/07/2024 16:45 INDICATION: rule out obstruction, kidney injury TECHNIQUE: Computed tomography (CT) of the abdomen and pelvis was performed without intravenous contr ast. Automated exposure control and iterative reconstruction technique were employed. The dose-length product was 919.75 mGy-cm. COMPARISON: 12/08/2018. FINDINGS: Exam limited by beam hardening from arm positioning and motion. Lower thorax: Left lower lobe scar/at electasis. Cardiomegaly. Coronary artery, aortic valve, and mitral annulus calcifications. NG tube, i n good position Liver: Normal. Biliary/Gallbladder: Calcified gallbladder wall. No bile duct dilation. Pancreas: Moderate atrophy. Spleen: Normal. Adrenals: Stable indeterminate density left adrenal mass, likely adenoma. Kidneys: No suspicious mass, obstructing stone, or hydronephrosis. Simple right midpole cyst. GI tract: No small or large bowel dilation. Normal appendix. Mesentery/Peritoneum: No ascites, mass, or free air. Retroperitoneum: No mass. Atherosclerotic abdominal aortic and/or arterial calcifications. Pelvis: Urinary bladder decompressed by Clark catheter. Absent uterus.. Soft Tissues: 4.6 cm intramuscular lipoma in the right lateral abdominal wall. Small fat-containing v entral hernia above the umbilicus. Bones: No acute osseous finding. IMPRESSION: No acute abdominopelvic process. Specifically, there is no CT evidence of bowel obstruction. No definite evidence of renal injury, noting that low-grade renal injury as can be difficult to detec t without contrast. Reviewed, dictated and finalized at location K. IMPRESSION: No acute abdominopelvic process. Specifically, there is no CT evidence of bowel obstruction. No definite evidence of renal injury, noting that low-grade renal injury as can be difficult to detect without contrast.
--- NOTE | ~2024-01-07 | XR_ITS ---
Portable chest x-ray Comparison: 01/11/2024 Clinical History: Respiratory failure Findings: Endotracheal tube, NG tube, and right IJ line are in place. Questionable minimal left basi lar atelectatic change. Right lung clear. Cardiomediastinal silhouette is stable. Bones and soft tis sues are unremarkable. Impression: Possible minimal left basilar atelectatic change. Support tubes, as above. Reviewed, dictated and finalized at location . Impression: Possible minimal left basilar atelectatic change. Support tubes, as above.
--- NOTE | ~2024-01-07 | XR_ITS ---
Upright portable view of the abdomen Clinical history: NG tube placement Findings: NG tube in satisfactory position. Bowel gas pattern is somewhat nonspecific. No free air ev ident. No abnormal mass lesion or calcification is seen. Osseous structures are intact. Impression: NG tube in satisfactory position. Reviewed, dictated and finalized at [facility]. Impression: NG tube in satisfactory position.
--- NOTE | ~2024-01-07 | XR_ITS ---
Portable chest x-ray Comparison: 01/08/2024 Clinical History: Respiratory failure Findings: Endotracheal tube, NG tube, and right IJ line are in place. Possible focal retrocardiac ai rspace disease. Right lung clear. Cardiomediastinal silhouette is stable. Bones and soft tissues are unremarkable. Impression: Possible left lower lobe atelectasis or pneumonia. Correlate clinically. Support tubes, as above. Reviewed, dictated and finalized at location . Impression: Possible left lower lobe atelectasis or pneumonia. Correlate clinically. Support tubes, as above.
--- NOTE | ~2024-01-07 | XR_ITS ---
EXAMINATION: XR chest ET placement Exam Date/Time: 01/07/2024 18:19 CDT HISTORY: intubated patient, AND CENTRAL LINE Comparison: Same date at 3:04 PM. FINDINGS/IMPRESSION: New right IJ central line terminating at the cavoatrial junction. The endotracheal tube and nasogastr ic tube remain in good position. The lungs remain clear. Reviewed, dictated and finalized at location K.
--- NOTE | ~2024-01-07 | XR_ITS ---
Portable chest x-ray Comparison: 01/09/2024 Clinical History: Respiratory failure Findings: Endotracheal tube, NG tube, and right IJ line are in place. There is retrocardiac airspace disease. Right lung clear. Cardiomediastinal silhouette is stable. Bones and soft tissues are unrem arkable. Impression: Left basilar atelectasis versus pneumonia. Support tubes, as above. Reviewed, dictated and finalized at location . Impression: Left basilar atelectasis versus pneumonia. Support tubes, as above.
--- NOTE | ~2024-01-07 | US_ITS ---
EXAMINATION: 1. US abdomen limited 2. US retroperitoneal duplex ltd DATE: 01/13/2024 09:25 INDICATION: Hepatomegaly. TECHNIQUE: Multiple grayscale and Doppler ultrasound images of the abdomen were obtained. COMPARISON: CT abdomen and pelvis 01/12/2024. FINDINGS: The visualized portions of the head and body of the pancreas are normal. The liver is cachorro l without focal lesion. The gallbladder is contracted and contains gallstones. The common duct is nor mal and measures 3 mm. There is normal vascular flow in main portal vein, left and right portal veins, left, middle, and rig ht hepatic veins, and proper hepatic artery. IMPRESSION: 1. Cholelithiasis. 2. Normal liver Doppler. Reviewed, dictated and finalized at location A. IMPRESSION: 1. Cholelithiasis. 2. Normal liver Doppler.
--- NOTE | ~2024-01-07 | XR_ITS ---
Portable chest x-ray Comparison: 01/17/2024 Clinical History: Respiratory failure Findings: Endotracheal tube, NG tube, and right IJ line are in place. There is probable linear scarr ing or atelectasis left lung base. Right lung clear. Cardiomediastinal silhouette is stable. Bones a nd soft tissues are unremarkable. Impression: Probable linear scarring or atelectasis left lung base. Stable support tubes. Reviewed, dictated and finalized at location . Impression: Probable linear scarring or atelectasis left lung base. Stable support tubes.
--- NOTE | ~2024-01-07 | XR_ITS ---
Portable chest x-ray Comparison: 01/15/2024 Clinical History: Respiratory failure Findings: Endotracheal tube, NG tube, and right IJ line remain in place. Possible focal retrocardiac opacity. Right lung clear. Cardiomediastinal silhouette is stable. Bones and soft tissues are unrem arkable. Impression: Probable focal left lower lobe atelectasis or possibly focal pneumonia. Stable support tubes. Reviewed, dictated and finalized at location . Impression: Probable focal left lower lobe atelectasis or possibly focal pneumonia. Stable support tubes.
--- NOTE | ~2024-01-07 | XR_ITS ---
EXAMINATION: XR chest 1V portable DATE: 01/13/2024 05:47 INDICATION: Respiratory failure. TECHNIQUE: A single frontal view of the chest was obtained. COMPARISON: Chest single view 01/12/2024, chest CT 01/12/2024 FINDINGS: There is mild atelectasis at right lung base. No pleural effusion or pneumothorax. The hear t size is normal. The endotracheal tube tip is 2.6 cm above the alek. The nasogastric tube tip is i n the stomach. A right internal jugular central venous catheter is seen with tip at the superior cavo atrial junction. IMPRESSION: 1. Mild atelectasis at left lung base. Reviewed, dictated and finalized at location A.
--- NOTE | ~2024-01-07 | XR_ITS ---
Portable chest x-ray Comparison: 01/18/2024 Clinical History: Respiratory failure Findings: Stable focal retrocardiac airspace opacity. Endotracheal tube, NG tube, and right IJ line are unchanged. Cardiomediastinal silhouette is stable. Bones and soft tissues are unremarkable. Impression: Stable support tubes. Stable probable atelectasis or scarring left lung base versus possibly pneumonia. Reviewed, dictated and finalized at [facility]. Impression: Stable support tubes. Stable probable atelectasis or scarring left lung base versus possibly pneumoni a.
--- NOTE | ~2024-01-07 | XR_ITS ---
EXAMINATION: XR chest 1V portable DATE: 01/24/2024 05:34 INDICATION: Respiratory failure. TECHNIQUE: A single frontal view of the chest was obtained. COMPARISON: Chest single view 01/23/2024 FINDINGS: There is mild atelectasis at left lung base. No pleural effusion or pneumothorax. The heart size is normal. The endotracheal tube tip is 5.1 cm above the alek. The nasogastric tube tip is be yond the inferior margin of the radiograph, but at least to the stomach. A right internal jugular ratna tral venous catheter is seen with tip at the superior cavoatrial junction. IMPRESSION: 1. Stable mild atelectasis at left lung base. Reviewed, dictated and finalized at location A.
--- NOTE | ~2024-01-07 | XR_ITS ---
EXAMINATION: XR chest 1V portable DATE: 01/14/2024 08:32 INDICATION: Respiratory failure. TECHNIQUE: A single frontal view of the chest was obtained. COMPARISON: Chest single view 01/13/2024 FINDINGS: There is mild atelectasis at left lung base. No pleural effusion or pneumothorax. The heart size is normal. The endotracheal tube tip is 3.0 cm above the alek. The nasogastric tube tip is in the stomach. A right internal jugular central venous catheter is seen with tip in the right atrium. IMPRESSION: 1. Mild atelectasis at left lung base. Reviewed, dictated and finalized at location A.
--- NOTE | ~2024-01-07 | CT_ITS ---
EXAMINATION: CT brain wo con DATE: 01/12/2024 14:57 INDICATION: Altered mental status. TECHNIQUE: Computed tomography (CT) of the head was performed without intravenous contrast. The mA wa s adjusted according to patient size. Iterative reconstruction technique was employed. The dose-lengt h product was 605.33 mGy-cm. COMPARISON: Head CT 01/07/2024 FINDINGS: There is a large distribution of chronic encephalomalacia involving the left parietal, temp oral, and occipital lobes, left insula, left basal ganglia, and left thalamus. There are infarcts inv olving the bilateral frontal, temporal, parietal, and occipital lobes, new from 01/07/2024. There is n o intracranial hemorrhage or abnormal mass lesion. There is ex vacuo dilatation of left lateral ventr icle. The orbits are normal. The paranasal sinuses are clear. The mastoid air cells are normal. A melissa ogastric tube is noted. IMPRESSION: 1. 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 2. Large distribution of chronic encephalomalacia in the expected distribution of left middle cerebra l artery. Reviewed, dictated and finalized at location A. IMPRESSION: 1. Extensive bilateral acute infarcts in the expected distributions of the bila teral middle cerebral arteries. 2. Large distribution of chronic encephalomalacia in the expected distribution of left middle cerebral artery.
--- NOTE | ~2024-01-07 | BM_ITS ---
Indication: IVC filter insertion TECHNIQUE: Fluoroscopy used during IVC filter insertion performed by [Kenneth Noland] on 01/18/20 24. No images obtained for interpretation. FINDINGS: Correlate with procedure note. IMPRESSION: Fluoroscopy used during IVC filter insertion. Reviewed, dictated and finalized at location B.
--- NOTE | ~2024-01-07 | XR_ITS ---
EXAMINATION: XR chest ET placement Exam Date/Time: 01/07/2024 14:55 CDT HISTORY: ET PLACEMENT Comparison: Same date at 2:31 PM. FINDINGS/IMPRESSION: The endotracheal tube has been retracted and now terminates 3.9 cm above the alek, in good position . New NG tube, also in good position. Interval resolution of perihilar atelectasis, the lungs are now clear. Reviewed, dictated and finalized at location K.
--- NOTE | 2024-01-07 12:15 | ECG_ITS ---
Test Date: 2024-01-07 12:30:11 Measurements Intervals [place] Rate: 68 P: 53 AK: 216 QRS: 30 QRSD: 85 T: 79 QT: 456 QTc: 486 Interpretive Statements SINUS RHYTHM WITH FIRST DEGREE AV BLOCK PROLONGED QT INTERVAL No previous ECG available for comparison Electronically Signed On 01-07-2024 12:34:32 CDT by Yayo Bailey M.D.
[2024-01-07 12:33] LABS: Glucose Point of Care 130 mg/dl (65-105)
[2024-01-07 12:44] LABS: Basophils Absolute Auto 0.1 K/mm3 (0.0-0.1); Basophils Percent Auto 0.5 % (0.2-1.2); Hematocrit 27.3 % (37.0-47.0); Hemoglobin 8.1 g/dL (12.0-15.0); Immature Granulocyte Absolute 0.15 K/mm3 (0.00-0.031); Immature Granulocyte Percent A 1.2 % (0-0.5); Lymphocytes Absolute Auto 2.11 K/mm3 (0.9-3.2); Lymphocytes Percent Auto 17.2 % (18.3-44.2); Mean Corpuscular HGB Conc 29.7 g/dl (32-36); Mean Corpuscular Hemoglobin 28.8 pg (26-34); Mean Corpuscular Volume 97.2 fl (80-100); Mean Platelet Volume 10.8 fl (7.4-10.4); Monocytes Absolute Auto 0.2 K/mm3 (0.1-0.6); Monocytes Percent Auto 1.4 % (2.6-8.5); Neutrophils Absolute Auto 9.8 K/mm3 (1.3-6.7); Neutrophils Percent Auto 79.7 % (45.5-73.1); Platelet Count Result 416 k/mm3 (150-375); Red Blood Count 2.81 M/mm3 (4.2-5.4); Red Cell Distribution Width 12.5 % (11.5-14.5); White Blood Count 12.3 K/mm3 (4.5-10.0)
[2024-01-07 12:45] LABS: Alveolar/Arterial O2 Gradient < 0.0 mmHg; Carboxyhemoglobin 0.2 % THb (0-2.0); Fractional Inspired Oxygen 21 %; HCO3 ABG 3.3 mEq/l (22.0-26.0); Methemoglobin ABG 0.4 %THb (0-1.5); Oxygen Content ABG 12.6 %vol (16.0-22.0); Oxygen Saturation ABG 96.7 % (95.0-100.0); Oxyhemoglobin 97.3 % THb (90.0-100.0); PO2 FiO2 Ratio Arterial Blood 6.43 %; Reduced Hemoglobin 2.1 %THb (0-5.0)
[2024-01-07 12:48] LABS: Device ROOM AIR; PCO2 ABG 15.8 mmHg (35.0-45.0); Site Drawn LEFT BRACHIAL
[2024-01-07 12:54] LABS: Ovalocytes 1+; Platelet Estimate Increased (Adequate); Schistocytes None Seen
[2024-01-07 12:56] LABS: Albumin Level 4.7 g/dL (3.5-5.1); Alkaline Phosphatase 81 U/L (38-126); Aspartate Amino Transferase 22 U/L (14-36); Bilirubin,Total 0.3 mg/dL (0.2-1.3); Blood Urea Nitrogen 70 mg/dL (7-17); Calcium 8.6 mg/dL (8.4-10.2); Carbon Dioxide < 5 mmol/L (22-30); Chloride 99 mmol/L (98-107); Estimated CRCL calculation 6 ml/min; Estimated Glomerular Filt Rate 4; Glucose 129 mg/dL (65-110); Potassium 5.7 mmol/L (3.4-5.0); Sodium 136 mmol/L (137-145)
[2024-01-07 12:58] LABS: INR 1.4; Prothrombin Time 17.1 Seconds (11.1-14.7)
[2024-01-07 12:59] LABS: Partial Thromboplastin Time 31.6 Seconds (22.3-36.8)
[2024-01-07] MEDS: SODIUM BICARBONATE 8.4% 50 MEQ/50 ML SYRINGE IV PUSH (12:59)
[2024-01-07] MEDS: SODIUM CHLORIDE 0.9% IV 1,000 ML 999 ML IV CONT ×3 (13:03→17:59)
[2024-01-07 13:16] LABS: Troponin I < 0.012 ng/mL (0.000-0.034)
[2024-01-07 13:28] LABS: Alanine Aminotransferase 20 U/L (6-35)
--- NOTE | 2024-01-07 13:41 | ED.AMS ---
HPI - Altered Mental Status General Chief Complaint: Altered Mental Status Stated Complaint: ams Time Seen by Provider: 01/07/24 12:15 Source: family, RN notes reviewed and old records reviewed Mode of arrival: wheelchair Limitations: altered mental status History of Present Illness HPI narrative: This is a 63 year old female who presents with her son for altered mental status. He states that patient woke up around 8 am this morning and she has not been acting right since then. He states patient was at her baseline when she went to sleep last night around 830 pm but he also states his father had to stay up with her because she would not sleep. She has history of a stroke with residual right facial droop, aphasia, right hemiplegia. He states she does have aphasia but they can normally understand her . Today they are not able to understand what she is saying at all. He denies recent fall or problems. Related Data Home Medications Medication Instructions Recorded Confirmed aspirin 81 mg chewable tablet 81 mg PO DAILY 01/31/19 12/26/21 atorvastatin 40 mg tablet 40 mg PO DAILY 01/31/19 12/26/21 metformin 1,000 mg tablet 1,000 mg PO BID 01/31/19 12/26/21 sertraline 100 mg tablet 100 mg PO DAILY 01/31/19 12/26/21 lisinopril 20 1 tablet PO DAILY 12/26/21 12/26/21 mg-hydrochlorothiazide 25 mg tablet Allergies Allergy/AdvReac Type Severity Reaction Status Date / Time No Known Allergies Allergy Unknown Verified 01/07/24 12:38 Review of Systems Review of Systems: ROS unobtainable: Yes unobtainable due to mental status PMFSH Past Medical History Medical History (Updated 01/07/24 @ 19:09 by Leida Sinha MD) Anemia of chronic disease Chronic kidney disease Depression with anxiety Diastolic dysfunction History of seizure Hyperlipidemia Hypertension 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 Surgical History Surgical History (Updated 01/07/24 @ 17:19 by Vivi Freeman PA-C) History of section History of hysterectomy Surgical history unknown Family History Family History (Updated 01/07/24 @ 17:19 by Vivi Freeman PA-C) Mother Heart disease Social History Social History (Updated 01/07/24 @ 17:19 by Vivi Freeman PA-C) Social History: Surrogate medical decision maker: Code status: Full code. Smoking status: Never smoker Alcohol intake: never Substance use: never Additional living arrangements comments: . Has 2 adult children. 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 Exam Const: General: confusion and ill appearing acutely Limitations: altered mental status HENMT: Other: right facial droop Eyes: EOM: EOMs intact bilaterally Resp: Effort & Inspection: normal respiratory effort Auscultation: clear to auscultation bilaterally Cardio: Rate: regular rate Rhythm: regular rhythm Heart sounds: Murmur heart sound present GI: GI Palp: Yes Soft to palpation, No Tenderness to palpation present (GI), No Guarding due to palpation present (GI) and No Rigid due to palpation Auscultation: normal bowel sounds Neuro: Other: right facial droop, slurred speech, right side hemiplegia Course Course Emergency Course: Patient presented altered. She has been found to have severe metabolic acidosis with kidney failure. She was started on IV fluids, given bicarb bolus and treatment for hyperkalemia. PAtient intubated with decreased mentation and vomiting. Patient's post intubation xray shows ETT in right main bronchus so respiratory pulled back 4 cm. radiologist called and reported lung infiltrates likely atelectasis. sales enablement lead and medical research associate consulted. Hospitalist made aware of findings and . PAtient admitted to ICU. I spoke to son and he understands she is critically ill. Reevaluation(s) Reevaluation #1: PAtient is now minimal responsive after vomiting. Patient intubated for airway protection, respiratory failure. Son is at bedside. I discussed with him patient critical condition. HE reports she was recently taken off a medication that was affecting her kidneys. Date: 12/31/23 Time: 14:32 Consultations Consultation #1: I spoke to Dr. Sinha, medical research associate. I reviewed labs and imaging. HE recommends CT abdomen and pelvis to assess obstruction. He also recommends zosyn to cover UTI And possible pneumonia Date: 01/07/24 Time: 15:03 Consultation #2: I spoke with Dr. Snider with sales enablement lead. I reported ABG, ph , potassium, new kidney failure. He agrees to consult. Date: 01/07/24 Time: 15:45 Consultation #3: I spoke with Dr. Noland with general surgery about hospitalist request for dialysis catheter. He states that the medical research associate should be requested to place and if they are unable then he should be recalled. Date: 01/07/24 Time: 16:30 Vital Signs Vital signs: Vital Signs Temperature 97.6 F 01/07/24 12:15 Pulse Rate 68 01/07/24 12:15 Respiratory Rate 14 01/07/24 12:15 Blood Pressure 123/45 L 01/07/24 12:15 Pulse Oximetry 98 01/07/24 12:15 Temperature 90.6 F L 01/07/24 19:03 Pulse Rate 61 01/07/24 18:58 Respiratory Rate 28 H 01/07/24 18:58 Blood Pressure 121/50 L 01/07/24 17:00 Pulse Oximetry 100 01/07/24 17:00 Oxygen Delivery Mechanical Ventilation 01/07/24 15:19 Fraction of Inspired Oxygen 24 01/07/24 15:19 Procedures Intubation Intubation #1: Intubation Date: 01/07/24 Intubation Time: 14:20 sedative: Etomidate Mg Given: 20 paralytic: Succinylcholine Mg Given: 100 Laryngoscope: fiber optic video scope Tube Size (cm): 7.5 Method of Intubation: orotracheal Number of Attempts: 1 Tube Secured Depth (cm): 25 Tube Secured Location: lips Tube Placement Confirmation: visualized tube passing through cords, equal breath sounds bilaterally and confirmation by capnometry Patient Tolerated Procedure: well Intubation Complications: none MDM - Altered Mental Status Differential Diagnosis Differential diagnosis: Likely altered mental status, delirium, hypoglycemia, hyponatremia, subarachnoid hemorrhage, sepsis and other (CARMEN) Medical Records Attestation: I reviewed the patient's medical records. Lab Data Attestation: I reviewed the patient's lab results. 01/07/24 12:38 01/07/24 17:04 Labs: Lab Results 01/07/24 01/07/24 01/07/24 Range/Units 12:22 12:36 12:38 WBC 12.3 H (4.5-10.0) K/mm3 RBC 2.81 L (4.2-5.4) M/mm3 Hgb 8.1 L (12.0-15.0) g/dL Hct 27.3 L (37.0-47.0) % MCV 97.2 (80-100) fl MCH 28.8 (26-34) pg MCHC 29.7 L (32-36) g/dl RDW 12.5 (11.5-14.5) % Plt Count 416 H (150-375) k/mm3 MPV 10.8 H (7.4-10.4) fl Immature Gran % (Auto) 1.2 H (0-0.5) % Neut % (Auto) 79.7 H (45.5-73.1) % Lymph % (Auto) 17.2 L (18.3-44.2) % [place] % (Auto) 1.4 L (2.6-8.5) % Eos % (Auto) 0.0 (0-4.4) % Baso % (Auto) 0.5 (0.2-1.2) % Lymph # (Auto) 2.11 (0.9-3.2) K/mm3 [place] # (Auto) 0.2 (0.1-0.6) K/mm3 Eos # (Auto) 0.0 (0-0.3) K/mm3 Baso # (Auto) 0.1 (0.0-0.1) K/mm3 Abs Immat Gran (auto) 0.15 H (0.00-0.031) K/mm3 Absolute Neuts (auto) 9.8 H (1.3-6.7) K/mm3 Absolute Nucleated RBC 0.000 (0.0-0.012) K/mm3 Nucleated RBC % 0.0 (0.0-0.2) % Platelet Estimate Increased (Adequate) Ovalocytes 1+ Schistocytes None seen PT 17.1 H (11.1-14.7) Seconds INR 1.4 APTT 31.6 (22.3-36.8) Seconds Methemoglobin (0-1.5) %THb Sodium 136 L (137-145) mmol/L Potassium 5.7 H (3.4-5.0) mmol/L Chloride 99 (98-107) mmol/L Carbon Dioxide < 5 L (22-30) mmol/L Anion Gap (4-12) mmol/L BUN 70 H D (7-17) mg/dL Creatinine 8.90 H (0.7-1.0) mg/dL Estim Creat Clear Calc 6 ml/min Estimated GFR 4 L (59 - ) Glucose 129 H (65-110) mg/dL POC Capillary Glucose 130 H (65-105) mg/dl Hemoglobin A1c 7.4 H (<5.7) % Lactic Acid (0.7-2.0) mmol/L Calcium 8.6 (8.4-10.2) mg/dL Iron 92 (37-170) ug/dL TIBC 260 L (261-462) ug/dL % Saturation 35 (20-50) % Ferritin 157.00 (11.1-264) ng/mL Total Bilirubin 0.3 (0.2-1.3) mg/dL AST 22 (14-36) U/L ALT 20 (6-35) U/L Alkaline Phosphatase 81 (38-126) U/L Troponin I < 0.012 (0.000-0.034) ng/mL Total Protein 8.0 (6.3-8.2) g/dL Albumin 4.7 (3.5-5.1) g/dL Vitamin B12 (239-931) pg/mL Folate (2.76->20) ng/mL Beta-Hydroxybutyrate/Acetoacetate (0.02-0.27) mmol/L Procalcitonin 0.2 ng/mL TSH (Reflex) 1.500 (0.465-4.68) uIU/mL Urine Color (Yellow) Urine Appearance (Clear) Urine pH (5.0-9.0) Ur Specific [place] (1.001-1.035) Urine Protein (Negative) mg/dL Urine Glucose (UA) (Negative) mg/dL Urine Ketones (Negative) mg/dL Ur Blood (Man) (Negative) Urine Nitrate (Negative) Urine Bilirubin (Negative) Urine Urobilinogen (<2.0) mg/dL Add Ur Microanalysis Leukocyte Esterase Rfl (Negative) TA/UL Urine RBC (0-2) /hpf Urine WBC (0-3) /hpf Ur Squamous Epith Cells (Few) /hpf Urine Bacteria /hpf Urine Casts Salicylates (2-20) mg/dL Urine Opiates Screen (Negative) Urine Methadone Screen (Negative) Acetaminophen (10-30) ug/mL Ur Barbiturates Screen (Negative) Ur Phencyclidine Scrn (Negative) Ur Amphetamine Screen (Negative) U Benzodiazepines Scrn (Negative) Urine Cocaine Screen (Negative) U Cannabinoids Screen (Negative) Hepatitis A IgM Ab Negative (Negative) Hep Bs Antigen Negative (Negative) Hep Bs Antibody Negative Hep B Core IgM Ab Negative (Negative) Hepatitis C Ab Screen Negative (Negative) 01/07/24 01/07/24 01/07/24 Range/Units 12:40 13:09 14:13 WBC (4.5-10.0) K/mm3 RBC (4.2-5.4) M/mm3 Hgb (12.0-15.0) g/dL Hct (37.0-47.0) % MCV (80-100) fl MCH (26-34) pg MCHC (32-36) g/dl RDW (11.5-14.5) % Plt Count (150-375) k/mm3 MPV (7.4-10.4) fl Immature Gran % (Auto) (0-0.5) % Neut % (Auto) (45.5-73.1) % Lymph % (Auto) (18.3-44.2) % [place] % (Auto) (2.6-8.5) % Eos % (Auto) (0-4.4) % Baso % (Auto) (0.2-1.2) % Lymph # (Auto) (0.9-3.2) K/mm3 [place] # (Auto) (0.1-0.6) K/mm3 Eos # (Auto) (0-0.3) K/mm3 Baso # (Auto) (0.0-0.1) K/mm3 Abs Immat Gran (auto) (0.00-0.031) K/mm3 Absolute Neuts (auto) (1.3-6.7) K/mm3 Absolute Nucleated RBC (0.0-0.012) K/mm3 Nucleated RBC % (0.0-0.2) % Platelet Estimate (Adequate) Ovalocytes Schistocytes PT (11.1-14.7) Seconds INR APTT (22.3-36.8) Seconds Methemoglobin 0.4 (0-1.5) %THb Sodium (137-145) mmol/L Potassium (3.4-5.0) mmol/L Chloride (98-107) mmol/L Carbon Dioxide (22-30) mmol/L Anion Gap (4-12) mmol/L BUN (7-17) mg/dL Creatinine (0.7-1.0) mg/dL Estim Creat Clear Calc ml/min Estimated GFR (59 - ) Glucose (65-110) mg/dL POC Capillary Glucose 213 H (65-105) mg/dl Hemoglobin A1c (<5.7) % Lactic Acid (0.7-2.0) mmol/L Calcium (8.4-10.2) mg/dL Iron (37-170) ug/dL TIBC (261-462) ug/dL % Saturation (20-50) % Ferritin (11.1-264) ng/mL Total Bilirubin (0.2-1.3) mg/dL AST (14-36) U/L ALT (6-35) U/L Alkaline Phosphatase (38-126) U/L Troponin I (0.000-0.034) ng/mL Total Protein (6.3-8.2) g/dL Albumin (3.5-5.1) g/dL Vitamin B12 (239-931) pg/mL Folate (2.76->20) ng/mL Beta-Hydroxybutyrate/Acetoacetate (0.02-0.27) mmol/L Procalcitonin ng/mL TSH (Reflex) (0.465-4.68) uIU/mL Urine Color Yellow (Yellow) Urine Appearance Turbid H (Clear) Urine pH 7.5 (5.0-9.0) Ur Specific [place] 1.011 (1.001-1.035) Urine Protein 2+ H (Negative) mg/dL Urine Glucose (UA) Negative (Negative) mg/dL Urine Ketones Trace H (Negative) mg/dL Ur Blood (Man) Negative (Negative) Urine Nitrate Negative (Negative) Urine Bilirubin Negative (Negative) Urine Urobilinogen 0.2 (<2.0) mg/dL Add Ur Microanalysis Reviewed Leukocyte Esterase Rfl 3+ H (Negative) TA/UL Urine RBC 0-2 (0-2) /hpf Urine WBC >100 H (0-3) /hpf Ur Squamous Epith Cells None seen (Few) /hpf Urine Bacteria 4+ /hpf Urine Casts 6-10 Salicylates (2-20) mg/dL Urine Opiates Screen Negative (Negative) Urine Methadone Screen Negative (Negative) Acetaminophen (10-30) ug/mL Ur Barbiturates Screen Negative (Negative) Ur Phencyclidine Scrn Negative (Negative) Ur Amphetamine Screen Negative (Negative) U Benzodiazepines Scrn Negative (Negative) Urine Cocaine Screen Negative (Negative) U Cannabinoids Screen Negative (Negative) Hepatitis A IgM Ab (Negative) Hep Bs Antigen (Negative) Hep Bs Antibody Hep B Core IgM Ab (Negative) Hepatitis C Ab Screen (Negative) 01/07/24 01/07/24 Range/Units 15:41 17:04 WBC (4.5-10.0) K/mm3 RBC (4.2-5.4) M/mm3 Hgb (12.0-15.0) g/dL Hct (37.0-47.0) % MCV (80-100) fl MCH (26-34) pg MCHC (32-36) g/dl RDW (11.5-14.5) % Plt Count (150-375) k/mm3 MPV (7.4-10.4) fl Immature Gran % (Auto) (0-0.5) % Neut % (Auto) (45.5-73.1) % Lymph % (Auto) (18.3-44.2) % [place] % (Auto) (2.6-8.5) % Eos % (Auto) (0-4.4) % Baso % (Auto) (0.2-1.2) % Lymph # (Auto) (0.9-3.2) K/mm3 [place] # (Auto) (0.1-0.6) K/mm3 Eos # (Auto) (0-0.3) K/mm3 Baso # (Auto) (0.0-0.1) K/mm3 Abs Immat Gran (auto) (0.00-0.031) K/mm3 Absolute Neuts (auto) (1.3-6.7) K/mm3 Absolute Nucleated RBC (0.0-0.012) K/mm3 Nucleated RBC % (0.0-0.2) % Platelet Estimate (Adequate) Ovalocytes Schistocytes PT (11.1-14.7) Seconds INR APTT (22.3-36.8) Seconds Methemoglobin (0-1.5) %THb Sodium 140 (137-145) mmol/L Potassium 5.0 (3.4-5.0) mmol/L Chloride 101 (98-107) mmol/L Carbon Dioxide < 5 L (22-30) mmol/L Anion Gap (4-12) mmol/L BUN 70 H (7-17) mg/dL Creatinine 9.30 H (0.7-1.0) mg/dL Estim Creat Clear Calc 6 ml/min Estimated GFR 4 L (59 - ) Glucose 163 H (65-110) mg/dL POC Capillary Glucose (65-105) mg/dl Hemoglobin A1c (<5.7) % Lactic Acid 15.8 H* (0.7-2.0) mmol/L Calcium 8.5 (8.4-10.2) mg/dL Iron (37-170) ug/dL TIBC (261-462) ug/dL % Saturation (20-50) % Ferritin (11.1-264) ng/mL Total Bilirubin (0.2-1.3) mg/dL AST (14-36) U/L ALT (6-35) U/L Alkaline Phosphatase (38-126) U/L Troponin I (0.000-0.034) ng/mL Total Protein (6.3-8.2) g/dL Albumin (3.5-5.1) g/dL Vitamin B12 311.0 (239-931) pg/mL Folate 18.1 (2.76->20) ng/mL Beta-Hydroxybutyrate/Acetoacetate 7.59 H (0.02-0.27) mmol/L Procalcitonin ng/mL TSH (Reflex) (0.465-4.68) uIU/mL Urine Color (Yellow) Urine Appearance (Clear) Urine pH (5.0-9.0) Ur Specific [place] (1.001-1.035) Urine Protein (Negative) mg/dL Urine Glucose (UA) (Negative) mg/dL Urine Ketones (Negative) mg/dL Ur Blood (Man) (Negative) Urine Nitrate (Negative) Urine Bilirubin (Negative) Urine Urobilinogen (<2.0) mg/dL Add Ur Microanalysis Leukocyte Esterase Rfl (Negative) TA/UL Urine RBC (0-2) /hpf Urine WBC (0-3) /hpf Ur Squamous Epith Cells (Few) /hpf Urine Bacteria /hpf Urine Casts Salicylates < 1.0 L (2-20) mg/dL Urine Opiates Screen (Negative) Urine Methadone Screen (Negative) Acetaminophen < 10 L (10-30) ug/mL Ur Barbiturates Screen (Negative) Ur Phencyclidine Scrn (Negative) Ur Amphetamine Screen (Negative) U Benzodiazepines Scrn (Negative) Urine Cocaine Screen (Negative) U Cannabinoids Screen (Negative) Hepatitis A IgM Ab (Negative) Hep Bs Antigen (Negative) Hep Bs Antibody Hep B Core IgM Ab (Negative) Hepatitis C Ab Screen (Negative) ABG Data ABG results: 01/07/24 12:40 Puncture Site Left brachial ABG pH 6.940 L* ABG pCO2 15.8 L* ABG pO2 135.0 H ABG PO2/FiO2 Ratio 6.43 ABG HCO3 3.3 L ABG O2 Saturation 96.7 ABG O2 Content 12.6 L ABG Base Excess -27.0 A-a Gradient < 0.0 Oxyhemoglobin 97.3 Carboxyhemoglobin 0.2 Reduced Hemoglobin 2.1 Total Hemoglobin 9.0 L O2 Delivery Device Room air O2 Liters/Min Not Reportable FiO2 21 Imaging Data Radiologist's impression: ITS Impressions Head CT 01/07/24 13:41 IMPRESSION: 1. No acute intracranial process. 2. 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 3. Additional more diffuse likely age-related mild to moderate diffuse volume loss and mild scattered white matter hypoattenuation consistent with chronic small vessel ischemic disease. Chest X-Ray 01/07/24 13:52 IMPRESSION: 1. No acute cardiopulmonary disease. Chest X-Ray 01/07/24 14:40 IMPRESSION: Right mainstem bronchus intubation. Consider 4.5 cm retraction. Perihilar airspace disease worse on the left, likely representing atelectasis. Results reported telephonically to Dr. Garland by Dr. Linton at 2:40 PM on 01/07/2024. Abdomen/Pelvis CT 01/07/24 16:52 IMPRESSION: No acute abdominopelvic process. Specifically, there is no CT evidence of bowel obstruction. No definite evidence of renal injury, noting that low-grade renal injury as can be difficult to detect without contrast. ECG Data EKG #1: Attestation: I personally reviewed and interpreted this ECG as follows: ECG completion date: 01/07/24 ECG completion time: 12:30 EKG Interpretation: normal rate, sinus rhythm and right axis Critical Care Time Critical Care Time Critical Care Time: Yes Total Critical Care Time: 60 Discharge Plan Discharge Clinical Impression: Metabolic acidosis, Respiratory failure, Acute kidney failure UTI (urinary tract infection) Qualifiers: Indwelling urinary catheter type: unspecified Encounter type: initial encounter Patient Disposition: Still a Patient Condition: Critical
[2024-01-07] MEDS: ALBUTEROL SULFATE NEB 2.5 MG/3 ML INH 10 MG INHALATION (13:45)
[2024-01-07] MEDS: INSULIN HUMAN REGULAR (*BKC) 100 UNITS/ML 10 UNITS IV PUSH (13:47)
[2024-01-07] MEDS: DEXTROSE 50% 25 GM/50 ML SYRINGE IV PUSH (13:47)
[2024-01-07 13:49] LABS: Add Urine Microscopic? YES; Appearance Urine Turbid (Clear); Bacteria Urine 4+ /hpf; Bilirubin Urine Negative (Negative); Blood Urine Negative (Negative); Color Urine Yellow (Yellow); Glucose Urine UA Negative (Negative); Ketones Urine Trace mg/dL (Negative); Leukocyte Esterase Ur 3+ LEU/UL (Negative); Need Manual Microscopic Reviewed; Nitrate Urine Negative (Negative); Protein Urine 2+ mg/dL (Negative); RBC Urine 0-2 /hpf (0-2); Specific Grav Ur 1.011 (1.001-1.035); Squamous Epithelial Cell Urine None Seen /hpf (Few); Urobilinogen Urine 0.2 mg/dL (<2.0); WBC Urine >100 /hpf (0-3); pH Urine 7.5 (5.0-9.0)
[2024-01-07] MEDS: CALCIUM GLUC 1,000 MG/NS 50 ML 1,000 MG/50 ML BAG 100 MG IVPB (13:49)
[2024-01-07 14:11] LABS: Amphetamine Screen Urine Negative (Negative); Barbiturate Screen Urine Negative (Negative); Benzodiazepines Screen Urine Negative (Negative); Cannabinoid Screen Urine Negative (Negative); Cocaine Screen Urine Negative (Negative); Methadone Screen Urine Negative (Negative); Opiate Screen Urine Negative (Negative); Phencyclidine Screen Urine Negative (Negative)
[2024-01-07] MEDS: PROPOFOL IV EMULSION 100 ML 2.22 MG IV CONT (14:45)
--- NOTE | 2024-01-07 15:11 | PC.NURSE ---
1410: patient began vomiting and began to become more unresponsive. provider called to come to room 1415: Dr Garland at bedside for intubation 1419: 20 etomidate and 100mg succ given to patient by LEIA Lambert 1421: intubation complete with 7.5 tube at 25cm at the lip performed by Dr Garland with positive color change and bilateral lung sounds
[2024-01-07 16:08] LABS: Lactic Acid Reflex 15.8 mmol/L (0.7-2.0)
[2024-01-07] MEDS: PIPERACILLN/TAZ 3.375GM/NS50ML 3.375 GM/50 ML BAG IVPB (16:22)
[2024-01-07 16:28] LABS: Beta-Hydroxybutyrate/Acetoacetate 7.59 mmol/L (0.02-0.27)
[2024-01-07] MEDS: RAPID SEQUENCE INTUBATION KIT 1 EACH (16:32)
[2024-01-07 16:54] LABS: Glucose Point of Care 213 mg/dl (65-105)
--- NOTE | 2024-01-07 17:15 | P.HP_ITS ---
H&P: HPI History of Present Illness Date/Time: 01/07/24 17:15 Chief Complaint: Altered mental status. Narrative: This is a 63-year-old female with history of stroke, insulin-dependent diabetes, hypertension, hyperlipidemia, chronic kidney disease, anemia chronic disease, depression, and anxiety who presented to the emergency department via private vehicle accompanied by her son for evaluation of confusion. She is currently intubated on mechanical ventilation and is unable to provide history. As such the following is obtained via a review of her electronic medical records as well as information provided by her son. She is primarily Vietnamese-speaking. It is my understanding that she was in her usual state of health when she went to bed last night at around 20:30 however reports that he was up with her a majority of the night as she had difficulty sleeping for unclear reasons. She woke at about 08:00 and has reportedly not been acting right and has been delirious since that time. The patient has aphasia from her previous stroke but they are typically able to understand what she is trying to say however today her speech was much more slurred and difficult to understand. There are no reports of patient complaints, sick contacts, fever, cold and flu symptoms, vomiting, or diarrhea. In the ED: Vital signs on arrival include a temperature 97.6?, blood pressure 123/45, pulse 68, respiratory rate 14, SpO2 98% on room air. She had an episode of emesis not long after arrival after which she became unresponsive and she was intubated. ABG showed a pH of 6.940, pCO2 15.8, PO2 135, HC03 to 3.3. Labs were significant for WBC count of 12.3, hemoglobin 8.1, INR 1.4, sodium 136, potassium 5.7, chloride 99, carbon dioxide less than 5, BUN 70, creatinine 8.90, glucose 129, beta hydroxybutyrate 7.59. Urinalysis was positive for 2+ protein, trace ketones, 3+ leukocyte esterase, greater than 100 WBC, and 4+ bacteria. Urine drug screen was negative. She was given piperacillin/tazobactam 3.375 g, 1 L normal saline bolus, as well as appropriate treatment for hyperkalemia to include 1 amp of sodium bicarbonate, insulin 10 units IV, dextrose 25 g IV, calcium gluconate 1000 mg IV, albuterol 10 mg. Review of Systems Review of Systems: Unable to obtain given clinical condition as detailed above. [facility] Past Medical History Medical History Anemia of chronic disease Chronic kidney disease Depression with anxiety Diastolic dysfunction History of seizure Hyperlipidemia Hypertension 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 Surgical History Surgical History History of section History of hysterectomy Surgical history unknown Family History Family History Mother Heart disease Social History Social History Social History: Surrogate medical decision maker: Code status: Full code. Smoking status: Never smoker Alcohol intake: unknown Substance use: unknown Additional living arrangements comments: . Has 2 adult children. 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 Spiritual care concerns: No Meds Home Medications and Allergies Home Medications Medication Instructions Recorded Confirmed Type atorvastatin 40 mg tablet 40 mg PO HS 01/31/19 01/07/24 History metformin 1,000 mg tablet 1,000 mg PO BID 01/31/19 01/07/24 History sertraline 100 mg tablet 100 mg PO DAILY 01/31/19 01/07/24 History amlodipine 10 mg tablet 10 mg PO DAILY 01/07/24 01/07/24 History hydralazine 10 mg tablet 10 mg PO BID 01/07/24 01/07/24 History insulin aspart U-100 100 unit/mL 12 unit subcut HS 01/07/24 01/07/24 History (3 mL) subcutaneous pen (Novolog FlexPen U-100 Insulin aspart) lisinopril 40 mg tablet 40 mg PO DAILY 01/07/24 01/07/24 History metoprolol tartrate 50 mg tablet 50 mg PO Q12H 01/07/24 01/07/24 History Allergies Allergy/AdvReac Type Severity Reaction Status Date / Time No Known Allergies Allergy Unknown Verified 01/07/24 12:38 Vital Signs Vital Signs - 24 hr 01/07/24 12:15 01/07/24 12:36 01/07/24 13:47 Temperature 97.6 F Pulse Rate 68 68 Respiratory Rate 14 26 H Blood Pressure 123/45 L Pulse Oximetry 98 96 Oxygen Delivery Room Air Fraction of Inspired Oxygen 01/07/24 14:27 01/07/24 14:45 01/07/24 12:21 Temperature Pulse Rate 74 85 69 Respiratory Rate 24 H 28 H Blood Pressure 159/66 H Pulse Oximetry 100 100 Oxygen Delivery Fraction of Inspired Oxygen 01/07/24 12:54 01/07/24 13:00 01/07/24 13:45 Temperature Pulse Rate 86 81 69 Respiratory Rate 13 16 17 Blood Pressure Pulse Oximetry 100 Oxygen Delivery Fraction of Inspired Oxygen 01/07/24 13:51 01/07/24 14:00 01/07/24 14:16 Temperature Pulse Rate 68 75 Respiratory Rate 15 17 Blood Pressure 127/47 L 140/55 L Pulse Oximetry 100 100 Oxygen Delivery Fraction of Inspired Oxygen 01/07/24 14:17 01/07/24 15:19 01/07/24 15:27 Temperature Pulse Rate 105 H 71 Respiratory Rate 22 H Blood Pressure Pulse Oximetry 100 100 Oxygen Delivery Mechanical Ventilation Fraction of Inspired Oxygen 01/07/24 16:09 01/07/24 16:22 01/07/24 16:52 Temperature Pulse Rate 83 91 81 Respiratory Rate 26 H 24 H 22 H Blood Pressure 120/50 L Pulse Oximetry 100 Oxygen Delivery Fraction of Inspired Oxygen Exam Narrative: General: Ill-appearing female sedated on mechanical ventilation. Weight: 74 kg. BMI: 24.8. HEENT: Normocephalic, atraumatic. Pupils are 3 to 4 mm and are sluggishly reactive. Sclera anicteric. ET and OG tubes in place. Neck: Supple. No JVD. Tunneled dialysis catheter in the right neck. Respiratory: Intubated on mechanical ventilation. Equally transmitted lung sounds bilaterally. Cardiovascular: Regular rate and rhythm with S1-S2. Systolic murmur at the upper sternal border. Gastrointestinal: Abdomen is soft, nontender, and nondistended with positive bowel sounds. Genitourinary: Clark catheter draining a scant amount of dark yellow urine. Skin: Warm and dry. Extremities are cool with decreased capillary refill. Extremities: No cyanosis, clubbing, or significant edema. Radial and posterior tibialis pulses decreased but palpable. Neurological: Sedated. No obvious facial asymmetry. No clonus or rigidity. Psychiatric: Unable to assess given clinical condition. H&P: Results Labs Labs: Short CBC 10/06/24 Range/Units 12:38 WBC 12.3 H (4.5-10.0) K/mm3 Hgb 8.1 L (12.0-15.0) g/dL Hct 27.3 L (37.0-47.0) % Plt Count 416 H (150-375) k/mm3 BMP 01/07/24 12:38 Sodium 136 L Potassium 5.7 H Chloride 99 Carbon Dioxide < 5 L BUN 70 H D Creatinine 8.90 H Glucose 129 H Calcium 8.6 Cardiac Enzymes 01/07/24 Range/Units 12:38 Troponin I < 0.012 (0.000-0.034) ng/mL Liver Function 01/07/24 Range/Units 12:38 Total Bilirubin 0.3 (0.2-1.3) mg/dL AST 22 (14-36) U/L ALT 20 (6-35) U/L Alkaline Phosphatase 81 (38-126) U/L Albumin 4.7 (3.5-5.1) g/dL Urine 01/07/24 Range/Units 13:09 Urine Color Yellow (Yellow) Urine Appearance Turbid H (Clear) Urine pH 7.5 (5.0-9.0) Ur Specific [place] 1.011 (1.001-1.035) Urine Protein 2+ H (Negative) mg/dL Urine Glucose (UA) Negative (Negative) mg/dL Imaging Head CT 01/07/24 13:41 IMPRESSION: 1. No acute intracranial process. 2. 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 3. Additional more diffuse likely age-related mild to moderate diffuse volume loss and mild scattered white matter hypoattenuation consistent with chronic small vessel ischemic disease. Chest X-Ray 01/07/24 13:52 IMPRESSION: 1. No acute cardiopulmonary disease. Chest X-Ray 01/07/24 14:40 IMPRESSION: 1. Right mainstem bronchus intubation. Consider 4.5 cm retraction. Perihilar airspace disease worse on the left, likely representing atelectasis. Abdomen/Pelvis CT 01/07/24 16:52 IMPRESSION: 1. No acute abdominopelvic process. 2. Specifically, there is no CT evidence of bowel obstruction. 3. No definite evidence of renal injury, noting that low-grade renal injury as can be difficult to detect without contrast. ABG Interpretation: 01/07/24 12:40 Puncture Site Left brachial ABG pH 6.940 L* ABG pCO2 15.8 L* ABG pO2 135.0 H ABG PO2/FiO2 Ratio 6.43 ABG HCO3 3.3 L ABG O2 Saturation 96.7 ABG O2 Content 12.6 L ABG Base Excess -27.0 A-a Gradient < 0.0 Oxyhemoglobin 97.3 Carboxyhemoglobin 0.2 Reduced Hemoglobin 2.1 Total Hemoglobin 9.0 L O2 Delivery Device Room air O2 Liters/Min Not Reportable FiO2 21 Assessment and Plan Assessment and plan (1) Septic shock: Code(s): A41.9 - Sepsis, unspecified organism; R65.21 - Severe sepsis with septic shock Status: Acute Assessment and Plan: Patient meets sepsis criteria with leukocytosis, acute kidney injury, and altered mental status in the setting of urinary tract infection. SOFA score is at least 6. She received 1 L normal saline bolus in the ED and will receive another 1250 mL for a total of 30 mL/kg. * Continue Zosyn pending blood and urine cultures. * Start norepinephrine with a goal MAP of at least 65 and SBP > 95. * She has been started on stress dose steroids. (2) Encephalopathy: Code(s): G93.40 - Encephalopathy, unspecified Status: Acute Assessment and Plan: She was confused when she got up this morning, likely due to a combination of uremia, electrolyte disturbances, and infection. * Brain CT was without acute abnormalities. * Currently sedated and intubated. * Treat underlying cause and follow closely postextubation. (3) Acute respiratory failure: Code(s): J96.00 - Acute respiratory failure, unspecified whether with hypoxia or hypercapnia Status: Acute Assessment and Plan: Patient became unresponsive after an episode of emesis not long after arrival to the ED. She has since been intubated. * Management per automation qa lead. (4) Acute on chronic kidney failure: Code(s): N17.9 - Acute kidney failure, unspecified; N18.9 - Chronic kidney disease, unspecified Status: Acute Assessment and Plan: Baseline creatinine is between 1.40 to 1.60. BUN and creatinine today are 70 and 8.90 respectively. Etiology is currently unclear. CT scan was without evidence of obstruction or hydronephrosis. She is on an SRINIVAS-inhibitor and thiazide diuretic at home. * She has profound metabolic acidosis and dialysis catheter is being inserted for urgent dialysis tonight. * Nephrology has been consulted and Dr. Snider's input is greatly appreciated. * Clark catheter has had minimal urine output as of now. * Renally dose all medications and avoid nephrotoxic agents. (5) Metabolic acidosis: Code(s): E87.20 - Acidosis, unspecified Status: Acute Assessment and Plan: Profound acidosis with a pH of 6.940 and unmeasurable serum bicarbonate level. * Analog Design Engineer placing dialysis catheter for urgent dialysis tonight. * Repeat labs thereafter and reassess need for bicarbonate drip. * She received 4 amps of sodium bicarbonate thus far. (6) Urinary tract infection: Code(s): N39.0 - Urinary tract infection, site not specified Status: Acute Assessment and Plan: History of fluoroquinolone resistant UTI on review of previous cultures. * Continue piperacillin/tazobactam, pending urine culture. (7) Hyperkalemia: Code(s): E87.5 - Hyperkalemia Status: Acute Assessment and Plan: Related to metabolic acidosis and acute kidney injury. * Patient received appropriate treatment for hyperkalemia in the ED. * Potassium has normalized and will be monitored closely. (8) Diastolic dysfunction: Code(s): I51.89 - Other ill-defined heart diseases Status: Acute Assessment and Plan: Most recent echo in December 2021 showed an EF of 65 to 70% and grade 1 diastolic dysfunction. * Patient is euvolemic on exam at this time. * Monitor volume status with daily weights and strict I/O. * Avoid over-hydration. (9) Insulin dependent diabetes mellitus: Status: Acute Assessment and Plan: Random glucose was 129 on arrival today. * Hold basal insulin for now to see how she trends. * Initiate sliding scale insulin, Accu-Cheks, and hypoglycemic protocol. * Check hemoglobin A1c. (10) Hypertension: Code(s): I10 - Essential (primary) hypertension Status: Acute Assessment and Plan: Blood pressures were reviewed and they have been stable. * Lisinopril and hydrochlorothiazide are on hold given acute on chronic kidney injury. * Consider resuming amlodipine 10 mg daily depending on overnight trend. (11) Seizures: Code(s): R56.9 - Unspecified convulsions Status: Acute Assessment and Plan: Continue levetiracetam and check serum level. Plan DVT prophylaxis: heparin 5000 units subcu b.i.d. and SCDs GI prophylaxis: famotidine 20 mg IV b.i.d. Nutrition: npo for now Quality VTE Prophylaxis VTE prophylaxis: mechanical ordered and pharmacologic ordered Hospitalist MIPS Advance Care Plan I have confirmed that the patient's Advanced Care Plan is present, code status is documented, or surrogate decision maker is listed in patient medical record.: Yes Medication Reconciliation I have utilized all available resources to obtain, update and review the patients current medications (includes all prescriptions, OTC, herbals, cannabis, and nutritional supplements).: Yes Critical Care Time Critical Care Time: Yes Total Critical Care Time: 90 Attestation: Due to a high probability of clinically significant, life threatening deterioration, the patient required my highest level of preparedness to intervene emergently and I personally spent this critical care time directly and personally managing the patient. This critical care time included obtaining a history; examining the patient; pulse oximetry; ordering and review of studies; arranging urgent treatment with development of a management plan; evaluation of patient's response to treatment; frequent reassessment; and discussions with other providers. It was exclusive of separately billable procedures and treating other patients and teaching time. Please see Assessment and Plan section and the rest of the note for further information on patient assessment and treatment.
[2024-01-07 17:21] LABS: Blood Urea Nitrogen 70 mg/dL (7-17); Calcium 8.5 mg/dL (8.4-10.2); Carbon Dioxide < 5 mmol/L (22-30); Chloride 101 mmol/L (98-107); Estimated CRCL calculation 6 ml/min; Estimated Glomerular Filt Rate 4; Glucose 163 mg/dL (65-110); Sodium 140 mmol/L (137-145)
[2024-01-07 17:35] LABS: Acetaminophen < 10 ug/mL (10-30); Salicylate < 1.0 mg/dL (2-20)
--- NOTE | 2024-01-07 17:40 | ADMGEN ---
This patient, Rafaela Hale, was admitted to Intensive Care Unit-2. Patient/family oriented to hospital policies and general routines including ID bracelet, bed and alarms, visiting hours, pain management, procedures, bathroom and other care routines, personal items, smoking policy, room service/diet, and visiting hours. Information on how to activate the Rapid Response Team has been discussed. Patient/Family are encouraged to report perceived risks to care and to ask questions if they do not understand what they are told or what they should do.
[2024-01-07 17:45] LABS: Iron 92 ug/dL (37-170)
[2024-01-07] MEDS: SODIUM BICARBONATE 8.4% 50 MEQ/50 ML SYRINGE 100 MEQ IV PUSH ×2 (17:45→19:00)
[2024-01-07 17:49] LABS: Hepatitis B Surface Antigen Negative (Negative)
[2024-01-07 17:54] LABS: Hemoglobin A1C 7.4 % (<5.7)
[2024-01-07 17:55] LABS: HAV RESULT Negative (Negative); Hepatitis B Core IgM Result Negative (Negative); Percent Iron Saturation 35 % (20-50)
[2024-01-07] MEDS: MIDAZOLAM HCL (*CRX) 2 MG/2 ML VIAL IV PUSH (17:55)
--- NOTE | 2024-01-07 18:02 | P.CONNP_ITS ---
Assessment and Plan Assessment and plan (1) Acute kidney failure: Code(s): N17.9 - Acute kidney failure, unspecified Status: Acute Assessment and Plan: * baseline creatinine not known * reported has some underlying renal insufficiency/CKD per family * now complicated by severe acidosis and hyperkalemia * etiology likely multifactorial: * infection/sepsis * hemodynamic instability/shock * SRINIVAS-I + HCTZ use prior to admission * possible prerenal factors * metformin use prior to admission * continued BP medications prior to admission * CT of abd/pelvis negative for obstruction * s/p aggressive IVF resuscitation * multiple pushes of IV bicarb * plan MATERIALS PLANNING ANALYST/HD more so for clearance of uremic toxins and severe acidosis * check urine studies and CPK * follow repeat labs and UOP (2) Septic shock: Code(s): A41.9 - Sepsis, unspecified organism; R65.21 - Severe sepsis with septic shock Status: Acute Assessment and Plan: * initially normotensive on presentation * however, worsening hypotension in the ER * s/p aggressive IVF resuscitation * presumsed source = aspiration pneumonia + UTI * follow culture data * on empiric antibiotics * vasopressor therapy to maintain MAP * follow trend of hemodynamics (3) Acute respiratory failure: Code(s): J96.00 - Acute respiratory failure, unspecified whether with hypoxia or hyp ercapnia Status: Acute Assessment and Plan: * due to AMS + emesis and concerns for aspiration and inability to protect airway * intubated and on mechanical ventilation * continue ventilator support * weaning when more stable (4) Acidosis: Code(s): E87.20 - Acidosis, unspecified Status: Acute Assessment and Plan: * due to a combination of CARMEN, lactic acidosis, and sepsis * s/p multiple pushes of IV bicarb * MATERIALS PLANNING ANALYST/dialysis today to attempt correction of acidosis * however, given severity of acidosis, suspect may may need further intervention (i.e. bicarb gtt) * trend lactic acid * follow ABGs (5) Hyperkalemia: Code(s): E87.5 - Hyperkalemia Status: Acute Assessment and Plan: * as noted on admission labs * due to CARMEN/ARF * s/p medical management in the ER * dialyss should help further correct/stabilize * follow trend of repeat K+ levels (6) Encephalopathy: Code(s): G93.40 - Encephalopathy, unspecified Status: Acute Assessment and Plan: * as noted by presentation of altered mental status, delirium, and confusion * presumably related to uremia, infection, along with severe acidosis * reassess when more stable (7) Insulin dependent diabetes mellitus: Status: Chronic Assessment and Plan: * holding metformin * follow accu-cheks * glycemic control per hospitalists/car servicer Greater than 20 minutes spent in detailed review of the electronic medical record and patient's admission labs as well as discussion with the ER physician, hospitalist, and the car servicer regarding the patient's presentation with regard to her acute kidney injury, hyperkalemia, and severe acidosis unresponsive to conservative therapy and the decision to proceed with renal replacement therapy/dialysis as well in an attempt to improve the patient's clinical situation. I will continue to follow the patient with you while she remains hospitalized and make further recommendations as deemed necessary. Thank you for allowing me to participate in the care of this patient. History of Present Illness Reason for Consult Consult date: 01/07/24 Reason for consult: acute renal failure and metabolic acidosis Chief Complaint Chief complaint: Metabolic acidosis, CARMEN History of Present Illness Narrative: All the information I have obtained is from review of the electronic medical record as well as discussion with the physicians involved in the patient's care as the patient is unable to provide any history as she is currently intubated and on mechanical ventilation. The patient is a 63-year-old female with a past medical history as outlined below who presented to [facility] Emergency room for further evaluation of altered mental status. The patient is apparently in her usual state of health when she went to bed yesterday evening. However, she apparently had difficulty sleeping the entire evening and her was up with her the majority of the time in attempt to help her fall asleep. She apparently woke up this morning at around a.m. and since that time, has not been acting right with associated delirium per her family. She has known aphasia from her previous CVA but they are typically able to understand what she says at baseline. However, since this morning, her speech has been more slurred and difficult to understand. No reported other subjective symptoms with regard to fevers, chills, nausea, vomiting, diarrhea, dizziness, lightheadedness, or palpitations. Workup and evaluation in the emergency room demonstrated the patient to be afebrile and hemodynamically stable. However, not long after her arrival to the emergency room, she had an episode of emesis and quickly became unresponsive. Following this event, and inability to arouse the patient, she was intubated and placed on mechanical ventilation. Subsequent labs demonstrated ABG with a pH of 6.9, pCO2 of 15.8, PO2 135, and H CO3 3.3. Her CBC showed a mild white blood cell count 12.3, hemoglobin 8.1, potassium of 5.7, CO2 less than five, BUN of 70 and a creatinine of 8.9 with a glucose of 129, beta hydroxybutyrate of 7.59. Her urinalysis was significant for 2+ protein, trace ketones, 3+ leukocyte esterase, greater than 100 white blood cells, and 4+ bacteria. Urine drug screen was negative as well. She was given a L of IV fluids and after saeid ropriate cultures were obtained, Clara SANDOVAL started on IV Zosyn due to concerns of possible sepsis. For her hyperkalemia, she received IV bicarb, insulin, D50, calcium gluconate, and a bruit on nebulizer treatment. Subsequent CT scan of the abdomen pelvis did not demonstrate any acute intra-abdominal pathology. A CT scan of her head did not show any acute intracranial issues either. She was subsequently transferred to the intensive care unit for further evaluation and therapy. Renal consultation was requested due to her acute kidney injury/acute renal failure, hyperkalemia, and severe metabolic acidosis. By the time of her arrival to the the ICU, her blood pressure had dropped into the 80s systolic. Furthermore, repeat labs showed that her lactic acid was almost 16 and her acido sis was unchanged if not worse. Given the severity of her acidosis in conjunction with her lactic acidosis, I discussed the case with the car servicer regarding the possible need for renal replacement therapy/dialysis more so for stabilization if not improvement in her acidosis although I did have concerns that dialysis alone may not be enough to correct her acidosis given the severity of it as noted by her labs. Further complicating matters is I am unclear what her baseline renal function/creatinine normally runs although there has been suggestion by family in that she has some underlying renal insufficiency at baseline. Ultimately, it seems prudent to proceed worth renal replacement ther apy /dialysis and the car servicer is in the process of placing a temporary dialysis catheter for this purpose. Currently, the patient is intubated and on mechanical ventilation but does not appear to be in any acute distress. Review of Systems Review of Systems: As per HPI. [facility] Past Medical History Medical History Anemia of chronic disease Chronic kidney disease Depression with anxiety Diastolic dysfunction History of seizure Hyperlipidemia Hypertension 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 Surgical History Surgical History History of section History of hysterectomy Surgical history unknown Family History Family History Mother Heart disease Social History Social History Social History: Surrogate medical decision maker: Code status: Full code. Smoking status: Never smoker Alcohol intake: unknown Substance use: unknown Additional living arrangements comments: . Has 2 adult children. 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 Spiritual care concerns: No Meds Home Medications and Allergies Home Medications Medication Instructions Recorded Confirmed Type atorvastatin 40 mg tablet 40 mg PO HS 01/31/19 01/07/24 History metformin 1,000 mg tablet 1,000 mg PO BID 01/31/19 01/07/24 History sertraline 100 mg tablet 100 mg PO DAILY 01/31/19 01/07/24 History amlodipine 10 mg tablet 10 mg PO DAILY 01/07/24 01/07/24 History hydralazine 10 mg tablet 10 mg PO BID 01/07/24 01/07/24 History insulin aspart U-100 100 unit/mL 12 unit subcut HS 01/07/24 01/07/24 History (3 mL) subcutaneous pen (Novolog FlexPen U-100 Insulin aspart) lisinopril 40 mg tablet 40 mg PO DAILY 01/07/24 01/07/24 History metoprolol tartrate 50 mg tablet 50 mg PO Q12H 01/07/24 01/07/24 History Allergies Allergy/AdvReac Type Severity Reaction Status Date / Time No Known Allergies Allergy Unknown Verified 01/07/24 12:38 Vital Signs Vital Signs Temp Pulse Resp BP Pulse Ox O2 Del Method FiO2 01/07/24 17:55 73 100 Mechanical Ventilation 24 01/07/24 17:45 69 28 H 01/07/24 17:00 79 22 H 121/50 L 100 01/07/24 16:52 81 22 H 01/07/24 16:22 91 24 H 120/50 L 100 01/07/24 16:09 83 26 H 01/07/24 15:27 71 22 H 01/07/24 15:19 105 H 100 Mechanical Ventilation 24 01/07/24 15:15 72 21H 137/41 L 100 01/07/24 14:17 100 01/07/24 14:16 140/55 L 100 01/07/24 14:00 75 17 01/07/24 13:51 68 15 127/47 L 100 01/07/24 13:45 69 17 100 01/07/24 13:00 81 16 01/07/24 12:54 86 13 01/07/24 12:21 69 100 01/07/24 14:45 85 28 H 01/07/24 14:27 74 24 H 159/66 H 100 01/07/24 13:47 68 26 H 01/07/24 12:36 96 Room Air 01/07/24 12:15 97.6 F 68 14 123/45 L 98 Exam Narrative: GENERAL APPEARANCE: somewhat ill-appearing female intubated/sedated and on mechanical ventilation HEENT: normocephalic, atraumatic, normal conjunctiva and sclera, nares patient NECK: no lymphadenopathy, thyromegaly, or JVD MOUTH: normal lips and gums; ETT in place CARDIOVASCULAR: RRR, normal S1 and S2, no rub RESPIRATORY: coarse breath sounds ABDOMEN: soft, nontender, nondistended, hypoactive bowel sounds present EXTREMITIES: no evidence of cyanosis, clubbing, or edema NEUROLOGICAL: unable to assess Results Lab Results 01/07/24 22:41 01/07/24 22:41 Lab results: Most recent lab results ABG pH 6.712 (7.350-7.450) L* 01/07/24 18:47 ABG pCO2 13.8 mmHg (35.0-45.0) L* 01/07/24 18:47 ABG pO2 302.2 mmHg (80.0-100.0) H 01/07/24 18:47 ABG HCO3 1.7 mEq/l (22.0-26.0) L 01/07/24 18:47 ABG O2 Saturation 99.0 % (95.0-100.0) 01/07/24 18:47 Calcium 8.5 mg/dL (8.4-10.2) 01/07/24 17:04
[2024-01-07 18:05] LABS: Procalcitonin 0.2 ng/mL
[2024-01-07 18:07] LABS: Hepatitis B Surface Anti Res Negative; Hepatitis C Virus Antibody Negative (Negative)
--- NOTE | 2024-01-07 18:30 | P.CONIN_ITS ---
Assessment and Plan Assessment and plan (1) Encephalopathy: Code(s): G93.40 - Encephalopathy, unspecified Status: Acute Assessment and Plan: Patient presented with encephalopathy, altered mental status, delirium, confusion -most likely related to uremia, infection, severe acidosis -will treat underlying course (2) Acute respiratory failure: Code(s): J96.00 - Acute respiratory failure, unspecified whether with hypoxia or hypercapnia Status: Acute Assessment and Plan: Patient had an episode of emesis in the ER, given her altered mental status encephalopathy, risk of aspiration with impending respiratory failure patient was intubated on 01/06/2025 -currently on CMV mode of ventilation, peep of 5, 50% FiO2 -ABG shows severe metabolic acidosis with respiratory compensation -chest x-ray reviewed -will switch propofol infusion to fentanyl and Versed, maintain RASS of 0 to - 2, daily SBT and SAT (3) Septic shock: Code(s): A41.9 - Sepsis, unspecified organism; R65.21 - Severe sepsis with septic shock Status: Acute Assessment and Plan: Patient hypotensive, received 1 L of IV fluid bolus in the ER -I have given a 2 L bolus in the ICU -lactic acid of 15.8, -will trend lactic acid -pH 6.94, in the ER, 1 amp of bicarb was given in the ED -patient was given 2 amps of bicarb upon arrival to the ICU -will give additional 2 amps of bicarb as repeat pH is 6.71 -dialysis catheter has been inserted, patient will be started on dialysis now -will start sodium bicarb infusion after discussing with Nephrology -01/07/2024: Blood in urine cultures have been obtained -was started on Zosyn for presumed UTI/aspiration pneumonia -start patient on Levophed, will maintain MAP > 65 mmHg or SBP > mmHg -check stat TSH level -will start stress dose steroids (4) Acute kidney failure: Code(s): N17.9 - Acute kidney failure, unspecified Status: Acute Assessment and Plan: On chronic kidney injury, unknown cause, CT of the abdomen and pelvis did not show any hydronephrosis or urinary obstruction -significant lactic acidosis and metabolic acidosis -patient has a history of diabetes, hypertension which could be a factor -patient on lisinopril hydrochlorothiazide at home -patient given a total of 3 L IV fluid bolus, 1 L in the ER and 2 L in the ICU -sodium bicarb IV pushes x4 in the ICU -will start patient on sodium bicarb infusion after discussing with Nephrology -continue to monitor urine output, electrolytes and renal function (5) Diastolic dysfunction: Code(s): I51.89 - Other ill-defined heart diseases Status: Acute Assessment and Plan: 12/07/2021 echocardiogram: Summary 1. Left ventricular chamber dimension is normal. 2. Left ventricular systolic function is normal, estimated at 65-70%. 3. There is moderately increased left ventricular wall thickness. 4. The left ventricular diastolic function is grade I diastolic dysfunction. 5. E/e' 13 is mildly elevated. 6. Left atrial chamber dimension is mildly enlarged. 7. There is moderate aortic valve sclerosis. 8. There is mild aortic valve stenosis with a peak velocity of 247.83 cm/s, mean gradient of 11 mmHg, and aortic valve area of 1.56 cm2. 9. The mitral valve has severely calcified annulus. 10. No pulmonary hypertension, estimated pulmonary arterial systolic pressure is 21 mmHg. (6) Hyperkalemia: Code(s): E87.5 - Hyperkalemia Status: Acute Assessment and Plan: Patient was treated with calcium gluconate, insulin, dextrose and albuterol. Potassium on admission was 5.7 -repeat potassium has improved 5.0 -currently getting dialyzed (7) Insulin dependent diabetes mellitus: Status: Acute Assessment and Plan: Continue sliding scale insulin Accu-Cheks (8) Right hemiparesis: Code(s): G81.91 - Hemiplegia, unspecified affecting right dominant side Status: Acute Assessment and Plan: History of left-sided cerebral hemisphere and CVA, residual mild aphasia and right-sided weakness (9) Seizures: Code(s): R56.9 - Unspecified convulsions Status: Acute Assessment and Plan: Patient has a history of seizures, on p.o. Keppra 500 mg p.o. q.12 hours -will start Keppra IV 500 mg IV q.24 (discuss with pharmacist) Plan DVT prophylaxis: Heparin SQ Stress ulcer prophylaxis: Protonix Nutrition: NPO Code Status: Full code Critical Care Time Spent: 124 minutes Discussed with patient's and son, patient's son does speak [place] but her does not. Updated them with patient's condition and plan of care. I did obtaining consent for dialysis catheter placement. Also discussed code status to which they said they wanted her to be a full code for now and 1 everything to be done. Due to a high probability of clinically significant, life threatening deterioration, the patient required my highest level of preparedness to intervene emergently and I personally spent this critical care time directly and personally managing the patient. This critical care time included obtaining a history; examining the patient; pulse oximetry; ordering and review of studies; arranging urgent treatment with development of a management plan; evaluation of patient's response to treatment; frequent reassessment; and discussions with other providers. It was exclusive of separately billable procedures and treating other patients and teaching time. Please see Assessment and Plan section and the rest of the note for further information on patient assessment and treatment This dictation may have been done utilizing a voice recognition system. Attempts have been made to correct errors. However, there may be uncorrected grammatical, spelling, and recognitions errors present. Fitness Technician Consult Note Consult date: 01/07/24 Reason for consult: Acute respiratory failure, severe metabolic acidosis, acute kidney injury, hyperkalemia, severe sepsis with significant a lactic acidosis HPI: Rafaela Hale is a 63 year old female with past medical history of anemia chronic disease, chronic kidney disease, depression/anxiety, diastolic dysfunction, history of seizures, hyperlipidemia, hypertension, insulin- dependent diabetes, left-sided cerebral hemisphere CVA with residual mild aphasia and right-sided weakness presented the ED on 01/07/2024 via private vehicle for evaluation of confusion altered mental status. According the records patient woke up on the morning of admission and was confused and delirious. She does have a history of aphasia from previous stroke with they are typically able to understand what she was trying to say however today has speech was more slurred and difficult to understand for which there brought into the ER. I obtained all information from the medical records. In the ER patient had an episode of emesis, given her altered mental status she was was intubated for airway protection/impending respiratory failure. In the ER, blood pressures were stable. Admission labs showed a pH of 6.94, pCO2 15, PO2 of 135, bicarb of 3.3. WBC count 12.3, hemoglobin 8.1, INR 0.4, sodium 136, potassium 5.7, chloride 99, CO2< 5 BUN 70, creatinine 8.90, glucose 129, beta hydroxybutyrate 7.59, urinalysis was positive for 2+ protein, trace ketones, 3+ leukocyte esterase, > 100 WBC, 4+ bacteria. Urine drug screen was negative salicylate and Tylenol levels are negative. Patient was given 1 L of IV fluid bolus and started on Zosyn. She was also treated with bicarb, insulin D50, calcium gluconate and a lbuterol for hyperkalemia. ER physician had called junior media buyer requested to start dialysis. A dialysis catheter was placed this evening myself, hemodialysis nurses is here to start dialysis. Patient seen and examined in the ICU upon arrival, is intubated, sedated with propofol, systolic blood pressures in the 80s, O2 sats on 100% on 50% FiO2. Patient does not open eyes or follow simple commands. Anuric. Afebrile Review of Systems Review of Systems: ROS unobtainable: Yes unobtainable due to endotracheal tube, unobtainable due to medical condition and unobtainable due to mental statu s [facility] Past Medical History Medical History (Updated 01/07/24 @ 19:09 by Leida Sinha MD) Anemia of chronic disease Chronic kidney disease Depression with anxiety Diastolic dysfunction History of seizure Hyperlipidemia Hypertension 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 Surgical History Surgical History (Updated 01/07/24 @ 17:19 by Vivi Freeman PA-C) History of section History of hysterectomy Surgical history unknown Family History Family History (Updated 01/07/24 @ 17:19 by Vivi Freeman PA-C) Mother Heart disease Social History Social History (Updated 01/07/24 @ 17:19 by Vivi Freeman PA-C) Social History: Surrogate medical decision maker: Code status: Full code. Smoking status: Never smoker Alcohol intake: never Substance use: never Additional living arrangements comments: . Has 2 adult children. 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 Meds Home Medications and Allergies Home Medications Medication Instructions Recorded Confirmed Type aspirin 81 mg chewable tablet 81 mg PO DAILY 01/31/19 12/26/21 History atorvastatin 40 mg tablet 40 mg PO DAILY 01/31/19 12/26/21 History metformin 1,000 mg tablet 1,000 mg PO BID 01/31/19 12/26/21 History sertraline 100 mg tablet 100 mg PO DAILY 01/31/19 12/26/21 History lisinopril 20 1 tablet PO DAILY 12/26/21 12/26/21 History mg-hydrochlorothiazide 25 mg tablet amlodipine 5 mg tablet (Norvasc) 10 mg PO QAM #30 tabs 12/28/21 Rx insulin aspart U-100 100 unit/mL 5 unit (0.05 mL) subcut TIDWMEAL 12/28/21 Rx (3 mL) subcutaneous pen (Novolog #15 mL FlexPen U-100 Insulin aspart) insulin detemir U-100 100 unit/mL 15 unit (0.15 mL) subcut DAILY #10 12/28/21 12/26/21 Rx subcutaneous solution (Levemir mL U-100 Insulin) levetiracetam 500 mg tablet 500 mg PO BID #60 tabs 12/28/21 Rx (Keppra) Allergies Allergy/AdvReac Type Severity Reaction Status Date / Time No Known Allergies Allergy Unknown Verified 01/07/24 12:38 Vital Signs Vital Signs - 24 hr 01/07/24 12:15 01/07/24 12:36 01/07/24 13:47 Temperature 97.6 F Pulse Rate 68 68 Respiratory Rate 14 26 H Blood Pressure 123/45 L Pulse Oximetry 98 96 Oxygen Delivery Room Air Fraction of Inspired Oxygen 01/07/24 14:27 01/07/24 14:45 01/07/24 12:21 Temperature Pulse Rate 74 85 69 Respiratory Rate 24 H 28 H Blood Pressure 159/66 H Pulse Oximetry 100 100 Oxygen Delivery Fraction of Inspired Oxygen 01/07/24 12:54 01/07/24 13:00 01/07/24 13:45 Temperature Pulse Rate 86 81 69 Respiratory Rate 13 16 17 Blood Pressure Pulse Oximetry 100 Oxygen Delivery Fraction of Inspired Oxygen 01/07/24 13:51 01/07/24 14:00 01/07/24 14:16 Temperature Pulse Rate 68 75 Respiratory Rate 15 17 Blood Pressure 127/47 L 140/55 L Pulse Oximetry 100 100 Oxygen Delivery Fraction of Inspired Oxygen 01/07/24 14:17 01/07/24 15:19 01/07/24 15:27 Temperature Pulse Rate 105 H 71 Respiratory Rate 22 H Blood Pressure Pulse Oximetry 100 100 Oxygen Delivery Mechanical Ventilation Fraction of Inspired Oxygen 01/07/24 16:09 01/07/24 16:22 01/07/24 16:52 Temperature Pulse Rate 83 91 81 Respiratory Rate 26 H 24 H 22 H Blood Pressure 120/50 L Pulse Oximetry 100 Oxygen Delivery Fraction of Inspired Oxygen 01/07/24 15:15 01/07/24 17:00 Temperature Pulse Rate 72 79 Respiratory Rate 21 H 22 H Blood Pressure 137/41 L 121/50 L Pulse Oximetry 100 100 Oxygen Delivery Fraction of Inspired Oxygen Exam Narrative: General: Intubated and sedated HEENT:? Pupils are equal, sluggishly reactive to light, sclera is clear, ETT in place Neck:? Supple, right IJ dialysis catheter in place Respiratory:? Coarse breath sounds bilaterally, decreased at bases no wheezing, adequate air entry Cardiac:? S1-S2 normal, regular rate and rhythm, Abdomen:? Soft, nontender, nondistended, hypoactive bowel sounds, old midline surgical scar noted Extremities:? Dry skin, decreased pedal pulses, no edema Neuro:? Patient is intubated, sedated, does not open her eyes or follow simple commands Skin:? Dry and flaky skin on lower extremities, skin is warm Psych:? Unable to assess at this time Results Labs 01/07/24 12:38 01/07/24 17:04 Labs: Short CBC 01/07/24 Range/Units 12:38 WBC 12.3 H (4.5-10.0) K/mm3 Hgb 8.1 L (12.0-15.0) g/dL Hct 27.3 L (37.0-47.0) % Plt Count 416 H (150-375) k/mm3 BMP 01/07/24 01/07/24 12:38 17:04 Sodium 136 L 140 Potassium 5.7 H 5.0 Chloride 99 101 Carbon Dioxide < 5 L < 5 L BUN 70 H D 70 H Creatinine 8.90 H 9.30 H Glucose 129 H 163 H Calcium 8.6 8.5 Cardiac Enzymes 01/07/24 Range/Units 12:38 Troponin I < 0.012 (0.000-0.034) ng/mL Liver Function 01/07/24 Range/Units 12:38 Total Bilirubin 0.3 (0.2-1.3) mg/dL AST 22 (14-36) U/L ALT 20 (6-35) U/L Alkaline Phosphatase 81 (38-126) U/L Albumin 4.7 (3.5-5.1) g/dL Urine 01/07/24 Range/Units 13:09 Urine Color Yellow (Yellow) Urine Appearance Turbid H (Clear) Urine pH 7.5 (5.0-9.0) Ur Specific [place] 1.011 (1.001-1.035) Urine Protein 2+ H (Negative) mg/dL Urine Glucose (UA) Negative (Negative) mg/dL Hospitalist MIPS Advance Care Plan I have confirmed that the patient's Advanced Care Plan is present, code status is documented, or surrogate decision maker is listed in patient medical record.: Yes Medication Reconciliation I have utilized all available resources to obtain, update and review the patients current medications (includes all prescriptions, OTC, herbals, cannabis, and nutritional supplements).: Yes
--- NOTE | 2024-01-07 18:31 | P.PCNBED_ITS ---
Procedures Hemodialysis Catheter Placement Right IJ: Discussed w/ patient and/or surrogate, the non-emergent placement of a hemodialysis catheter, including it's clinincal necessity/indication & associated potential risks & complications.: Yes The patient and/or surrogate understand(s) and acknowledge(s) the need to proceed with hemodialysis catheter insertion as an important element of the patient's clinical management.: Yes HD Catheter Date: 01/07/24 HD Catheter Time: 18:06 Pre-procedural Time-Out was completed immediately before starting the procedure and confirmed: Patient Identification, Site, Procedure, Patient Position and the Availability of Requisite Equipment.: Yes Patient Position: supine Patient Placed on Monitor/Pulse Ox: Yes Provider Prep: mask, sterile gown, sterile gloves, Max. sterile barrier precautions, cap and hand hygiene Hemodialysis Catheter Prep: Chlorhexidine scrub Local Anesthesia Used: lidocaine 1% Amount of anesthesia used (mL): 3 Ultrasound Used for Placement: Yes Hemodialysis Catheter Inserted: triple Citizen Of [place]: 12 Length (cm): 16 Depth of Insertion (cm): 16 Post Procedure: sutured in place, good blood return, all ports aspirated, flushed, capped, transparent dressing, hemostatic product, antimicrobial product, securement product and aseptic technique maintained throughout procedure Post Procedure X-Ray: tip of catheter in good position and no pneumothorax seen Patient Tolerated Procedure: well Complications: none
[2024-01-07] MEDS: LACTATED RINGERS 1,000 ML 999 ML IV CONT (18:36)
[2024-01-07 18:46] LABS: Reflex Lactic Acid Yes or No Add Lactic
[2024-01-07 18:46] LABS: Glucose Point of Care 144 mg/dl (65-105)
[2024-01-07 18:50] LABS: Alveolar/Arterial O2 Gradient 38.8 mmHg; Carboxyhemoglobin 0.6 % THb (0-2.0); Fractional Inspired Oxygen 50 %; HCO3 ABG 1.7 mEq/l (22.0-26.0); Methemoglobin ABG 0.6 %THb (0-1.5); Oxygen Content ABG 11.2 %vol (16.0-22.0); Oxyhemoglobin 98.3 % THb (90.0-100.0); PO2 ABG 302.2 mmHg (80.0-100.0); PO2 FiO2 Ratio Arterial Blood 6.04 %; Reduced Hemoglobin 0.5 %THb (0-5.0)
[2024-01-07] MEDS: NOREPINEPHRINE 8 MG/D5W 250 ML 8 MG/250 ML BAG 9.38 MG IV CONT (18:50)
[2024-01-07 18:53] LABS: pH ABG 6.712 (7.350-7.450)
[2024-01-07 18:53] LABS: Folic Acid 18.1 ng/mL (2.76->20)
[2024-01-07 18:54] LABS: PCO2 ABG 13.8 mmHg (35.0-45.0)
[2024-01-07 18:55] LABS: Site Drawn RIGHT BRACHIAL; Total Hemoglobin 7.5 g/dL (12.0-18.0)
[2024-01-07 18:57] LABS: Arterial Blood Gas Ventilator rate 24 /MIN; Device VENTILATOR
[2024-01-07 18:58] LABS: Arterial Blood Gas PEEP 5 cmH2O; Arterial Blood Gas Tidal Volume 450 ml; Arterial Blood Gas Vent Mode CMV
[2024-01-07] MEDS: FENTANYL 2,500MCG/NS250ML(*CRX 2,500 MCG/250 ML BAG IV CONT (19:26)
[2024-01-07] MEDS: MIDAZOLAM 100MG/NS 100ML(*CRX) 100 MG/100 ML BAG IV CONT (19:27)
[2024-01-07 19:36] LABS: Lactic Acid 20.5 mmol/L (0.7-2.0)
[2024-01-07] MEDS: SODIUM BICARBONATE 8.4% 150 MEQ in WATER, STERILE FOR INJECTION 950 ML 100 MEQ IV CONT (19:48)
--- NOTE | 2024-01-07 19:59 | P.CONS_ITS ---
Assessment and Plan Assessment and plan (1) Septic shock: Code(s): A41.9 - Sepsis, unspecified organism; R65.21 - Severe sepsis with septic shock Status: Acute Assessment and Plan: Patient likely has urosepsis. Patient has been started on IV antibiotics. Given the prior CT scan finding it is unlikely that the patient's initial insult would ischemic or necrotic bowel or perforated bowel. However now that she is been hypotensive and intubated and emergent hemodialysis she certainly could have ongoing ischemic bowel due to her sepsis. At this point she is not a surgical candidate as she is not stable enough to be taken to an operating room for a general anesthetic and cannot be taken to an operating room to evaluate for ischemic bowel with a laparotomy. Continue aggressive emergent supportive management and interventions as per the propulsion machinery service engineer. We will continue to follow. (2) Acute respiratory failure: Code(s): J96.00 - Acute respiratory failure, unspecified whether with hypoxia or hypercapnia Status: Acute Assessment and Plan: Patient has been intubated and sedated. (3) Urinary tract infection: Code(s): N39.0 - Urinary tract infection, site not specified Status: Acute (4) Acute on chronic kidney failure: Code(s): N17.9 - Acute kidney failure, unspecified; N18.9 - Chronic kidney disease, unspe cified Status: Acute Assessment and Plan: Patient now acute renal failure. She has hyperkalemia due to his acute renal failure and sepsis. Her emergent hemodialysis is ongoing at this time. (5) Acute kidney failure: Code(s): N17.9 - Acute kidney failure, unspecified Status: Acute HPI Data of Consult Date/Time: 01/07/24 19:59 Requesting Physician: Joselito Vines MD Primary Care Provider: Vandana Ovalle, PA Consult Narrative Reason for consult: Severe lactic acidosis, sepsis, acute respiratory failure Narrative: Rafaela Hale is a 63 year old female brought to the emergency room today by family due to decreased mental status and lethargy. She has had a previous stroke and is not verbal. In the emergency room she had an episode of emesis and was intubated for airway protection due to her altered mental status. She was also noted to have a pH is 6.94 and had hyperkalemia and was severely metab olic acidotic. Initial lactic acid level was about 6 and has been rising. She was given bicarb in the emergency room and emergent placement of a hemodialysis catheter placed by the propulsion machinery service engineer and hemodialysis is ongoing at this time. Patient presently on 5 mics of Levophed. She was also hypothermic her white blood [place] [address] on admission. Urinalysis showed 3+ positive leukocyte esterase greater than 100 white blood cells in the urine likely consistent with urosepsis. The patient is lactic acid level was not greater than 20 and she is undergoing aggressive septation supportive management intensive care unit intubated. I have been asked to evaluate the patient to see if any reason for surgery and to evaluate for possible ischemic bowel. CT scan was done in the emergency room showing no acute pathology in the abdomen that may be responsible for the current state of extremities. Review of Systems Review of Systems: And obtainable as the patient is intubated and sedated. No family at the bedside. [facility] Past Medical History Medical History Anemia of chronic disease Chronic kidney disease Depression with anxiety Diastolic dysfunction History of seizure Hyperlipidemia Hypertension 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 Surgical History Surgical History History of section History of hysterectomy Surgical history unknown Family History Family History Mother Heart disease Social History Social History Social History: Surrogate medical decision maker: Code status: Full code. Smoking status: Never smoker Alcohol intake: never Substance use: never Additional living arrangements comments: . Has 2 adult children. 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 Meds Home Medications and Allergies Home Medications Medication Instructions Recorded Confirmed Type aspirin 81 mg chewable tablet 81 mg PO DAILY 01/31/19 12/26/21 History atorvastatin 40 mg tablet 40 mg PO DAILY 01/31/19 12/26/21 History metformin 1,000 mg tablet 1,000 mg PO BID 01/31/19 12/26/21 History sertraline 100 mg tablet 100 mg PO DAILY 01/31/19 12/26/21 History lisinopril 20 1 tablet PO DAILY 12/26/21 12/26/21 History mg-hydrochlorothiazide 25 mg tablet amlodipine 5 mg tablet (Norvasc) 10 mg PO QAM #30 tabs 12/28/21 Rx insulin aspart U-100 100 unit/mL 5 unit (0.05 mL) subcut TIDWMEAL 12/28/21 Rx (3 mL) subcutaneous pen (Novolog #15 mL FlexPen U-100 Insulin aspart) insulin detemir U-100 100 unit/mL 15 unit (0.15 mL) subcut DAILY #10 12/28/21 12/26/21 Rx subcutaneous solution (Levemir mL U-100 Insulin) levetiracetam 500 mg tablet 500 mg PO BID #60 tabs 12/28/21 Rx (Keppra) Allergies Allergy/AdvReac Type Severity Reaction Status Date / Time No Known Allergies Allergy Unknown Verified 01/07/24 12:38 Vital Signs Vital Signs - 24 hr 01/07/24 12:15 01/07/24 12:36 01/07/24 13:47 Temperature 36.4 C Pulse Rate 68 68 Respiratory Rate 14 26 H Blood Pressure 123/45 L Pulse Oximetry 98 96 Oxygen Delivery Room Air Fraction of Inspired Oxygen 01/07/24 14:27 01/07/24 14:45 01/07/24 12:21 Temperature Pulse Rate 74 85 69 Respiratory Rate 24 H 28 H Blood Pressure 159/66 H Pulse Oximetry 100 100 Oxygen Delivery Fraction of Inspired Oxygen 01/07/24 12:54 01/07/24 13:00 01/07/24 13:45 Temperature Pulse Rate 86 81 69 Respiratory Rate 13 16 17 Blood Pressure Pulse Oximetry 100 Oxygen Delivery Fraction of Inspired Oxygen 01/07/24 13:51 01/07/24 14:00 01/07/24 14:16 Temperature Pulse Rate 68 75 Respiratory Rate 15 17 Blood Pressure 127/47 L 140/55 L Pulse Oximetry 100 100 Oxygen Delivery Fraction of Inspired Oxygen 01/07/24 14:17 01/07/24 15:19 01/07/24 15:27 Temperature Pulse Rate 105 H 71 Respiratory Rate 22 H Blood Pressure Pulse Oximetry 100 100 Oxygen Delivery Mechanical Ventilation Fraction of Inspired Oxygen 24 01/07/24 16:09 01/07/24 16:22 01/07/24 16:52 Temperature Pulse Rate 83 91 81 Respiratory Rate 26 H 24 H 22 H Blood Pressure 120/50 L Pulse Oximetry 100 Oxygen Delivery Fraction of Inspired Oxygen 01/07/24 15:15 01/07/24 17:00 01/07/24 17:45 Temperature Pulse Rate 72 79 69 Respiratory Rate 21 H 22 H 28 H Blood Pressure 137/41 L 121/50 L Pulse Oximetry 100 100 Oxygen Delivery Fraction of Inspired Oxygen 01/07/24 18:58 01/07/24 19:03 01/07/24 19:26 Temperature 32.6 C L Pulse Rate 61 75 Respiratory Rate 28 H 29 H Blood Pressure Pulse Oximetry Oxygen Delivery Fraction of Inspired Oxygen 01/07/24 19:27 01/07/24 18:00 01/07/24 19:18 Temperature 31.1 C L 32.7 C L Pulse Rate 75 69 Respiratory Rate 30 H 28 H Blood Pressure 91/46 L Pulse Oximetry 100 Oxygen Delivery Fraction of Inspired Oxygen 01/07/24 19:33 01/07/24 18:00 01/07/24 18:00 Temperature 32.9 C L Pulse Rate 69 Respiratory Rate Blood Pressure Pulse Oximetry Oxygen Delivery Fraction of Inspired Oxygen 50 01/07/24 18:00 01/07/24 18:50 01/07/24 19:50 Temperature Pulse Rate 68 75 Respiratory Rate Blood Pressure 89/47 L 85/51 L Pulse Oximetry 100 Oxygen Delivery Mechanical Ventilation Fraction of Inspired Oxygen 50 01/07/24 19:48 01/07/24 17:55 01/07/24 18:15 Temperature 33.6 C L Pulse Rate 73 65 Respiratory Rate 28 H Blood Pressure 86/41 L Pulse Oximetry 100 100 Oxygen Delivery Mechanical Ventilation Fraction of Inspired Oxygen 24 01/07/24 18:30 01/07/24 18:45 01/07/24 18:50 Temperature Pulse Rate 60 61 64 Respiratory Rate 28 H 28 H 28 H Blood Pressure 104/50 L 89/47 L Pulse Oximetry 100 100 100 Oxygen Delivery Fraction of Inspired Oxygen 01/07/24 19:09 01/07/24 19:15 01/07/24 19:30 Temperature Pulse Rate 67 70 78 Respiratory Rate Blood Pressure 87/40 L 89/47 L 95/49 L Pulse Oximetry Oxygen Delivery Fraction of Inspired Oxygen Exam Const: Other: Patient is currently intubated and sedated getting hemodialysis emergently HENMT: Other: Patient is intubated sedated Eyes: Other: Patient intubated sedated Neck: Neck: supple and no JVD Resp: Other: Equal breath sounds bilaterally. Cardio: Rate: regular rate Rhythm: regular rhythm GI: Other: Abdomen is soft and nondistended. There is a lower midline scar previous hysterectomy without evidence of incisional hernia. No masses are appreciated. Clinical Abdominal exam is relatively unreliable because the patient is intubated and sedated. Neuro: Other: Patient is intubated and sedated. She does seem to minimally respond to painful stimuli. Extrem: General: normal to inspection Psych: Other: Patient intubated and sedated Results Labs 01/07/24 12:38 01/07/24 17:04 Labs: Short CBC 01/07/24 Range/Units 12:38 WBC 12.3 H (4.5-10.0) K/mm3 Hgb 8.1 L (12.0-15.0) g/dL Hct 27.3 L (37.0-47.0) % Plt Count 416 H (150-375) k/mm3 BMP 01/07/24 01/07/24 12:38 17:04 Sodium 136 L 140 Potassium 5.7 H 5.0 Chloride 99 101 Carbon Dioxide < 5 L < 5 L BUN 70 H D 70 H Creatinine 8.90 H 9.30 H Glucose 129 H 163 H Calcium 8.6 8.5 Cardiac Enzymes 01/07/24 Range/Units 12:38 Troponin I < 0.012 (0.000-0.034) ng/mL Liver Function 01/07/24 Range/Units 12:38 Total Bilirubin 0.3 (0.2-1.3) mg/dL AST 22 (14-36) U/L ALT 20 (6-35) U/L Alkaline Phosphatase 81 (38-126) U/L Albumin 4.7 (3.5-5.1) g/dL Urine 01/07/24 Range/Units 13:09 Urine Color Yellow (Yellow) Urine Appearance Turbid H (Clear) Urine pH 7.5 (5.0-9.0) Ur Specific [place] 1.011 (1.001-1.035) Urine Protein 2+ H (Negative) mg/dL Urine Glucose (UA) Negative (Negative) mg/dL Imaging Radiologist's impression: EXAMINATION: CT abdomen pelvis wo con DATE: 01/07/2024 16:45 INDICATION: rule out obstruction, kidney injury TECHNIQUE: Computed tomography (CT) of the abdomen and pelvis was performed without intravenous contrast. Automated exposure control and iterative reconstruction technique were employed. The dose-length product was 919.75 mGy- cm. COMPARISON: 12/08/2018. FINDINGS: Exam limited by beam hardening from arm positioning and motion. Lower thorax: Left lower lobe scar/atelectasis. Cardiomegaly. Coronary artery, aortic valve, and mitral annulus calcifications. NG tube, in good position Liver: Normal. Biliary/Gallbladder: Calcified gallbladder wall. No bile duct dilation. Pancreas: Moderate atrophy. Spleen: Normal. Adrenals: Stable indeterminate density left adrenal mass, likely adenoma. Kidneys: No suspicious mass, obstructing stone, or hydronephrosis. Simple right midpole cyst. GI tract: No small or large bowel dilation. Normal appendix. Mesentery/Peritoneum: No ascites, mass, or free air. Retroperitoneum: No mass. Atherosclerotic abdominal aortic and/or arterial calcifications. Pelvis: Urinary bladder decompressed by Clark catheter. Absent uterus.. Soft Tissues: 4.6 cm intramuscular lipoma in the right lateral abdominal wall. Small fat-containing ventral hernia above the umbilicus. Bones: No acute osseous finding. IMPRESSION: No acute abdominopelvic process. Specifically, there is no CT evidence of bowel obstruction. No definite evidence of renal injury, noting that low-grade renal injury as can be difficult to detect without contrast. Reviewed, dictated and finalized at location K. Dictated By: Eddie Linton MD 01/07/24 5920 Signed By: <Electronically signed by Eddie Linton MD in [facility]> 01/07/24 1703
--- NOTE | 2024-01-07 20:06 | PC.NURSE ---
Report received by LEIA Campos in ER at 3293. All questions answered and plan of care reviewed. Patient to transfer to ICU room 2.
[2024-01-07 20:19] LABS: Influenza A QL RT-PCR Negative (Negative); Influenza B QL RT-PCR Negative (Negative); SARS-CoV-2 RNA PCR Negative (Negative)
[2024-01-07 20:23] LABS: MRSA (PCR) NOT DETECTED (NOT DETECTE)
[2024-01-07] MEDS: HEPARIN SODIUM 1,000 UNITS/ML VIAL 5000 UNITS (21:55)
[2024-01-07] MEDS: HYDROCORTISONE SODIUM SUCCINATE 100 MG/2 ML VIAL IV PUSH (22:44)
[2024-01-07] MEDS: PANTOPRAZOLE SODIUM IV 40 MG VIAL IV PUSH (22:44)
[2024-01-07] MEDS: HEPARIN SODIUM 5,000 UNITS/ML VIAL 5000 UNITS SUB-Q (22:45)
[2024-01-07] MEDS: MINERAL OIL/WHITE PETROLATUM OINTMENT 1 APPLIC EACH EYE (22:45)
[2024-01-07] MEDS: levETIRAcetam 500MG/NACL 100ML 500 MG/100 ML BAG 400 MG IVPB (22:45)
[2024-01-07 22:49] LABS: Hematocrit 21.3 % (37.0-47.0); Mean Corpuscular HGB Conc 31.9 g/dl (32-36); Mean Corpuscular Hemoglobin 28.7 pg (26-34); Mean Corpuscular Volume 89.9 fl (80-100); Mean Platelet Volume 10.8 fl (7.4-10.4); Platelet Count Result 338 k/mm3 (150-375); Red Blood Count 2.37 M/mm3 (4.2-5.4); Red Cell Distribution Width 12.7 % (11.5-14.5); White Blood Count 15.3 K/mm3 (4.5-10.0)
[2024-01-07 22:51] LABS: Platelet Count Result 339 k/mm3 (150-375)
[2024-01-07 22:53] LABS: Hemoglobin 6.8 g/dL (12.0-15.0)
[2024-01-07 23:01] LABS: Magnesium 1.7 mg/dL (1.6-2.3)
[2024-01-07 23:04] LABS: INR 1.3; Prothrombin Time 16.4 Seconds (11.1-14.7)
[2024-01-07 23:05] LABS: Fibrinogen 313 mg/dl (215-510)
[2024-01-07 23:06] LABS: Albumin Level 3.8 g/dL (3.5-5.1); Alkaline Phosphatase 88 U/L (38-126); Anion Gap 35 mmol/L (4-12); Aspartate Amino Transferase 29 U/L (14-36); Bilirubin,Total 0.3 mg/dL (0.2-1.3); Blood Urea Nitrogen 23 mg/dL (7-17); Calcium 7.7 mg/dL (8.4-10.2); Carbon Dioxide 11 mmol/L (22-30); Chloride 94 mmol/L (98-107); Estimated CRCL calculation 19 ml/min; Estimated Glomerular Filt Rate 18; Glucose 112 mg/dL (65-110); Magnesium 1.7 mg/dL (1.6-2.3); Partial Thromboplastin Time 31.6 Seconds (22.3-36.8); Phosphorus 3.3 mg/dL (2.5-4.5); Potassium 3.3 mmol/L (3.4-5.0); Sodium 140 mmol/L (137-145)
[2024-01-07 23:12] LABS: Alanine Aminotransferase 21 U/L (6-35)
[2024-01-07 23:15] LABS: Lactic Acid Reflex 17.5 mmol/L (0.7-2.0)
[2024-01-07 23:16] LABS: D Dimer 1.09 ug/mL (<0.48)
[2024-01-07 23:50] LABS: Alveolar/Arterial O2 Gradient 36.2 mmHg; Base Excess ABG -17.3 mEq/l (+/-2.0); Fractional Inspired Oxygen 30 %; Oxygen Content ABG 10.4 %vol (16.0-22.0); Oxygen Saturation ABG 98.8 % (95.0-100.0); Oxyhemoglobin 97.9 % THb (90.0-100.0); PO2 ABG 156.7 mmHg (80.0-100.0); PO2 FiO2 Ratio Arterial Blood 5.22 %
[2024-01-07 23:51] LABS: PCO2 ABG 17.9 mmHg (35.0-45.0); pH ABG 7.266 (7.350-7.450)
[2024-01-07 23:52] LABS: Site Drawn RIGHT BRACHIAL; Total Hemoglobin 7.3 g/dL (12.0-18.0)
[2024-01-07 23:53] LABS: Arterial Blood Gas PEEP 5 cmH2O; Arterial Blood Gas Tidal Volume 450 ml; Arterial Blood Gas Vent Mode CMV; Arterial Blood Gas Ventilator rate 24 /MIN; Device VENTILATOR
[2024-01-08] VITALS (55 sets, daily range): BP systolic 105–166; BP diastolic 46–63; PULSE 76–109; RESP 24–30; TEMP 36–37.4; O2SAT 100; BMI 26.6
[2024-01-08] MEDS: PIPERACILLIN/TAZ 2.25G/NS 50ML 2.25 GM/50 ML BAG IVPB (00:19)
[2024-01-08] MEDS: SODIUM BICARBONATE 8.4% 50 MEQ/50 ML SYRINGE 100 MEQ IV PUSH (00:52)
[2024-01-08 01:09] LABS: Glucose Point of Care 110 mg/dl (65-105)
[2024-01-08 05:15] LABS: Alveolar/Arterial O2 Gradient 15.2 mmHg; Base Excess ABG -15.6 mEq/l (+/-2.0); Carboxyhemoglobin 0.6 % THb (0-2.0); Fractional Inspired Oxygen 25 %; HCO3 ABG 8.8 mEq/l (22.0-26.0); Methemoglobin ABG 0.2 %THb (0-1.5); Oxygen Content ABG 11.4 %vol (16.0-22.0); Oxygen Saturation ABG 98.7 % (95.0-100.0); Oxyhemoglobin 97.6 % THb (90.0-100.0); PO2 ABG 142.2 mmHg (80.0-100.0); PO2 FiO2 Ratio Arterial Blood 5.69 %; Reduced Hemoglobin 1.6 %THb (0-5.0); Total Hemoglobin 8.1 g/dL (12.0-18.0); pH ABG 7.317 (7.350-7.450)
[2024-01-08 05:16] LABS: Device VENTILATOR; PCO2 ABG 17.6 mmHg (35.0-45.0); Site Drawn RIGHT BRACHIAL
[2024-01-08 05:17] LABS: Arterial Blood Gas PEEP 5 cmH2O; Arterial Blood Gas Tidal Volume 450 ml; Arterial Blood Gas Vent Mode CMV; Arterial Blood Gas Ventilator rate 24 /MIN
[2024-01-08] MEDS: HYDROCORTISONE SODIUM SUCCINATE 100 MG/2 ML VIAL IV PUSH ×3 (06:26→21:12)
[2024-01-08] MEDS: SODIUM BICARBONATE 8.4% 150 MEQ in WATER, STERILE FOR INJECTION 950 ML 100 MEQ IV CONT ×2 (06:27→16:23)
[2024-01-08 06:40] LABS: Basophils Percent Auto 0.2 % (0.2-1.2); Hematocrit 23.4 % (37.0-47.0); Hemoglobin 7.7 g/dL (12.0-15.0); Immature Granulocyte Absolute 0.16 K/mm3 (0.00-0.031); Immature Granulocyte Percent A 1.2 % (0-0.5); Lymphocytes Absolute Auto 1.09 K/mm3 (0.9-3.2); Lymphocytes Percent Auto 8.1 % (18.3-44.2); Mean Corpuscular HGB Conc 32.9 g/dl (32-36); Mean Corpuscular Hemoglobin 29.7 pg (26-34); Mean Corpuscular Volume 90.3 fl (80-100); Mean Platelet Volume 10.9 fl (7.4-10.4); Monocytes Absolute Auto 0.7 K/mm3 (0.1-0.6); Monocytes Percent Auto 5.1 % (2.6-8.5); Neutrophils Absolute Auto 11.4 K/mm3 (1.3-6.7); Neutrophils Percent Auto 85.4 % (45.5-73.1); Partial Thromboplastin Time 32.8 Seconds (22.3-36.8); Platelet Count Result 243 k/mm3 (150-375); Red Blood Count 2.59 M/mm3 (4.2-5.4); White Blood Count 13.4 K/mm3 (4.5-10.0)
[2024-01-08 06:56] LABS: Albumin Level 3.4 g/dL (3.5-5.1); Alkaline Phosphatase 77 U/L (38-126); Anion Gap 42 mmol/L (4-12); Aspartate Amino Transferase 38 U/L (14-36); Bilirubin,Total 0.4 mg/dL (0.2-1.3); Blood Urea Nitrogen 28 mg/dL (7-17); CRP 1.2 mg/dL (<1.0); Calcium 7.5 mg/dL (8.4-10.2); Carbon Dioxide 8 mmol/L (22-30); Chloride 91 mmol/L (98-107); Creatine Kinase 84 U/L (30-135); Estimated CRCL calculation 15 ml/min; Estimated Glomerular Filt Rate 13; Glucose 198 mg/dL (65-110); Lipase 450 U/L (23-300); Potassium 3.7 mmol/L (3.4-5.0); Sodium 141 mmol/L (137-145)
[2024-01-08 07:02] LABS: Alanine Aminotransferase 19 U/L (6-35)
[2024-01-08 07:18] LABS: Lactic Acid Reflex 13.1 mmol/L (0.7-2.0)
[2024-01-08 07:23] LABS: INR 1.4; Prothrombin Time 17.3 Seconds (11.1-14.7)
[2024-01-08] MEDS: CALCIUM GLUC 2,000 MG/NS 100ML 2,000 MG/100 ML BAG 100 MG IVPB (08:38)
[2024-01-08] MEDS: SODIUM BICARBONATE TAB 650 MG TABLET 1300 MG PO ×2 (08:39→16:24)
[2024-01-08] MEDS: HEPARIN SODIUM 5,000 UNITS/ML VIAL 5000 UNITS SUB-Q ×2 (08:39→21:11)
--- NOTE | 2024-01-08 08:42 | WPDINTPN ---
Progress Note: A&P Assessment and Plan (1) Acute kidney failure: Code(s): N17.9 - Acute kidney failure, unspecified Status: Acute Assessment and Plan: On chronic kidney injury, unknown cause, CT of the abdomen and pelvis did not show any hydronephrosis or urinary obstruction -significant lactic acidosis and metabolic acidosis -patient has a history of diabetes, hypertension which is likely the cause of chronic kidney disease -patient on lisinopril hydrochlorothiazide and metformin at home -patient was given a total of 3 L IV fluid bolus, 1 L in the ER and 2 L in the ICU -sodium bicarb IV pushes x4 in the ICU -will start patient on sodium bicarb infusion after discussing with Nephrology -patient was started on hemodialysis and was dialyzed yesterday and plan to dialyze again today -continue to monitor urine output, electrolytes and renal function (2) Metabolic acidosis: Code(s): E87.20 - Acidosis, unspecified Status: Acute Assessment and Plan: Patient presented with significant metabolic acidosis and lactic acidosis. This could be combination of septic shock, acute kidney injury but also a possibility of metformin toxicity Patient has been started on hemodialysis and received her 1st session yesterday and will receive 2nd session today Continue IV fluids with bicarb Will add additional bicarb through gastric tube Monitor (3) Acute respiratory failure: Code(s): J96.00 - Acute respiratory failure, unspecified whether with hypoxia or hypercapnia Status: Acute Assessment and Plan: Patient had an episode of emesis in the ER, given her altered mental status encephalopathy, risk of aspiration with impending respiratory failure patient was intubated on 01/06/2025 -currently on CMV mode of ventilation, peep of 5, 50% FiO2 -ABG shows severe metabolic acidosis with respiratory compensation -chest x-ray reviewed -will switch propofol infusion to fentanyl and Versed, maintain RASS of 0 to -2, daily SBT and SAT (4) Septic shock: Code(s): A41.9 - Sepsis, unspecified organism; R65.21 - Severe sepsis with septic shock Status: Acute Assessment and Plan: Patient hypotensive on presentation Patient was given IV fluid bolus followed by maintenance IV fluids -lactic acid is improving -continue Levophed -continue IV fluids with bicarb -source appears to be UTI. Urine and blood cultures are pending -change Zosyn to Rocephin -continue stress dose steroids (5) Encephalopathy: Code(s): G93.40 - Encephalopathy, unspecified Status: Acute Assessment and Plan: Patient presented with encephalopathy, altered mental status, delirium, confusion -most likely related to uremia, infection, severe acidosis and baseline flow malacia from past stroke -head CT IMPRESSION: 1. No acute intracranial process. 2. 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 3. Additional more diffuse likely age-related mild to moderate diffuse volume loss and mild scattered white matter hypoattenuation consistent with chronic small vessel ischemic disease. TSH normal Check ammonia (6) Diastolic dysfunction: Code(s): I51.89 - Other ill-defined heart diseases Status: Acute Assessment and Plan: 12/07/2021 echocardiogram: Summary 1. Left ventricular chamber dimension is normal. 2. Left ventricular systolic function is normal, estimated at 65-70%. 3. There is moderately increased left ventricular wall thickness. 4. The left ventricular diastolic function is grade I diastolic dysfunction. 5. E/e' 13 is mildly elevated. 6. Left atrial chamber dimension is mildly enlarged. 7. There is moderate aortic valve sclerosis. 8. There is mild aortic valve stenosis with a peak velocity of 247.83 cm/s, mean gradient of 11 mmHg, and aortic valve area of 1.56 cm2. 9. The mitral valve has severely calcified annulus. 10. No pulmonary hypertension, estimated pulmonary arterial systolic pressure is 21 mmHg. (7) Hyperkalemia: Code(s): E87.5 - Hyperkalemia Status: Acute Assessment and Plan: Patient was treated with calcium gluconate, insulin, dextrose and albuterol. Potassium on admission was 5.7 -repeat potassium has improved 5.0 Patient is getting dialyzed again today (8) Insulin dependent diabetes mellitus: Status: Chronic Assessment and Plan: Continue sliding scale insulin Accu-Cheks (9) Right hemiparesis: Code(s): G81.91 - Hemiplegia, unspecified affecting right dominant side Status: Acute Assessment and Plan: History of left-sided cerebral hemisphere and CVA, residual mild aphasia and right-sided weakness (10) Seizures: Code(s): R56.9 - Unspecified convulsions Status: Acute Assessment and Plan: Patient has a history of seizures, on p.o. Keppra 500 mg p.o. q.12 hours Continue Keppra IV 500 mg IV q.24 (discuss with pharmacist) Plan DVT prophylaxis: Heparin SQ Stress ulcer prophylaxis: Protonix Nutrition: NPO. Will start tube feeds after hemodialysis today Code Status: Full code Critical Care Time Spent: 35 minutes Due to a high probability of clinically significant, life threatening deterioration, the patient required my highest level of preparedness to intervene emergently and I personally spent this critical care time directly and personally managing the patient. This critical care time included obtaining a history; examining the patient; pulse oximetry; ordering and review of studies; arranging urgent treatment with development of a management plan; evaluation of patient's response to treatment; frequent reassessment; and discussions with other providers. It was exclusive of separately billable procedures and treating other patients and teaching time. Please see Assessment and Plan section and the rest of the note for further information on patient assessment and treatment This dictation may have been done utilizing a voice recognition system. Attempts have been made to correct errors. However, there may be uncorrected grammatical, spelling, and recognitions errors present. Subjective Date/time seen: 01/08/24 Overnight events reviewed. Afebrile Continues to be on mechanical ventilation 21% FiO2 Levophed weaned off Continues to be sedated with Versed and fentanyl Minimal urine output Review of Systems Review of Systems: ROS unobtainable: Yes unobtainable due to endotracheal tube, unobtainable due to medical condition and unobtainable due to mental status Exam Narrative: General: Intubated and sedated HEENT:? Pupils are equal, sluggishly reactive to light, sclera is clear, ETT in place Neck:? Supple, right IJ dialysis catheter in place Respiratory:? Coarse breath sounds bilaterally, decreased at bases no wheezing, adequate air entry Cardiac:? S1-S2 normal, regular rate and rhythm, Abdomen:? Soft, nontender, nondistended, hypoactive bowel sounds, old midline surgical scar noted Extremities:? Dry skin, decreased pedal pulses, no edema Neuro:? Patient is intubated, sedated, perrl Skin:? Dry and flaky skin on lower extremities, skin is warm Psych:? Unable to assess at this time Objective Data Vital Signs Vital Signs: Vital Signs - 24 hr 01/07/24 12:15 01/07/24 12:36 01/07/24 13:47 Temperature 36.4 C Pulse Rate 68 68 Respiratory Rate 14 26 H Blood Pressure 123/45 L Pulse Oximetry 98 96 Oxygen Delivery Room Air Fraction of Inspired Oxygen 01/07/24 14:27 01/07/24 14:45 01/07/24 12:21 Temperature Pulse Rate 74 85 69 Respiratory Rate 24 H 28 H Blood Pressure 159/66 H Pulse Oximetry 100 100 Oxygen Delivery Fraction of Inspired Oxygen 01/07/24 12:54 01/07/24 13:00 01/07/24 13:45 Temperature Pulse Rate 86 81 69 Respiratory Rate 13 16 17 Blood Pressure Pulse Oximetry 100 Oxygen Delivery Fraction of Inspired Oxygen 01/07/24 13:51 01/07/24 14:00 01/07/24 14:16 Temperature Pulse Rate 68 75 Respiratory Rate 15 17 Blood Pressure 127/47 L 140/55 L Pulse Oximetry 100 100 Oxygen Delivery Fraction of Inspired Oxygen 01/07/24 14:17 01/07/24 15:19 01/07/24 15:27 Temperature Pulse Rate 105 H 71 Respiratory Rate 22 H Blood Pressure Pulse Oximetry 100 100 Oxygen Delivery Mechanical Ventilation Fraction of Inspired Oxygen 01/07/24 16:09 01/07/24 16:22 01/07/24 16:52 Temperature Pulse Rate 83 91 81 Respiratory Rate 26 H 24 H 22 H Blood Pressure 120/50 L Pulse Oximetry 100 Oxygen Delivery Fraction of Inspired Oxygen 01/07/24 15:15 01/07/24 17:00 01/07/24 17:45 Temperature Pulse Rate 72 79 69 Respiratory Rate 21 H 22 H 28 H Blood Pressure 137/41 L 121/50 L Pulse Oximetry 100 100 Oxygen Delivery Fraction of Inspired Oxygen 01/07/24 18:58 01/07/24 19:03 01/07/24 19:26 Temperature 32.6 C L Pulse Rate 61 75 Respiratory Rate 28 H 29 H Blood Pressure Pulse Oximetry Oxygen Delivery Fraction of Inspired Oxygen 01/07/24 19:27 01/07/24 18:00 01/07/24 19:18 Temperature 31.1 C L 32.7 C L Pulse Rate 75 69 Respiratory Rate 30 H 28 H Blood Pressure 91/46 L Pulse Oximetry 100 Oxygen Delivery Fraction of Inspired Oxygen 01/07/24 19:33 01/07/24 18:00 01/07/24 18:00 Temperature 32.9 C L Pulse Rate 69 Respiratory Rate Blood Pressure Pulse Oximetry Oxygen Delivery Fraction of Inspired Oxygen 50 01/07/24 18:00 01/07/24 18:50 01/07/24 19:50 Temperature Pulse Rate 68 75 Respiratory Rate Blood Pressure 89/47 L 85/51 L Pulse Oximetry 100 Oxygen Delivery Mechanical Ventilation Fraction of Inspired Oxygen 50 01/07/24 19:48 01/07/24 17:55 01/07/24 18:15 Temperature 33.6 C L Pulse Rate 73 65 Respiratory Rate 28 H Blood Pressure 86/41 L Pulse Oximetry 100 100 Oxygen Delivery Mechanical Ventilation Fraction of Inspired Oxygen 24 01/07/24 18:30 01/07/24 18:45 01/07/24 18:50 Temperature Pulse Rate 60 61 64 Respiratory Rate 28 H 28 H 28 H Blood Pressure 104/50 L 89/47 L Pulse Oximetry 100 100 100 Oxygen Delivery Fraction of Inspired Oxygen 01/07/24 19:09 01/07/24 19:00 01/07/24 19:00 Temperature 31.1 C L Pulse Rate 67 64 Respiratory Rate 25 H Blood Pressure 87/40 L 104/50 L Pulse Oximetry 100 Oxygen Delivery Fraction of Inspired Oxygen 50 01/07/24 20:00 01/07/24 20:15 01/07/24 20:30 Temperature Pulse Rate 73 75 73 Respiratory Rate Blood Pressure 90/52 L 109/51 L 82/52 L Pulse Oximetry Oxygen Delivery Fraction of Inspired Oxygen 01/07/24 20:45 01/07/24 21:15 01/07/24 19:15 Temperature Pulse Rate 75 81 70 Respiratory Rate Blood Pressure 110/50 L 105/56 L 89/47 L Pulse Oximetry Oxygen Delivery Fraction of Inspired Oxygen 01/07/24 19:30 01/07/24 19:45 01/07/24 20:05 Temperature Pulse Rate 78 98 73 Respiratory Rate Blood Pressure 95/49 L 90/50 L 88/49 L Pulse Oximetry Oxygen Delivery Fraction of Inspired Oxygen 01/07/24 20:28 01/07/24 20:33 01/07/24 20:15 Temperature Pulse Rate 73 73 75 Respiratory Rate 32 H Blood Pressure 82/52 L 109/51 L Pulse Oximetry Oxygen Delivery Fraction of Inspired Oxygen 01/07/24 21:00 01/07/24 20:45 01/07/24 20:10 Temperature Pulse Rate 73 76 73 Respiratory Rate Blood Pressure 102/48 L 98/50 L Pulse Oximetry 100 Oxygen Delivery Mechanical Ventilation Fraction of Inspired Oxygen 50 01/07/24 21:00 01/07/24 21:35 01/07/24 20:28 Temperature Pulse Rate 76 87 73 Respiratory Rate 32 H Blood Pressure 102/48 L 140/51 L Pulse Oximetry Oxygen Delivery Fraction of Inspired Oxygen 01/07/24 21:36 01/07/24 21:37 01/07/24 21:30 Temperature Pulse Rate 84 84 84 Respiratory Rate 29 H 29 H Blood Pressure 140/51 L Pulse Oximetry Oxygen Delivery Fraction of Inspired Oxygen 01/07/24 22:00 01/07/24 22:15 01/07/24 21:45 Temperature Pulse Rate 89 89 94 Respiratory Rate Blood Pressure 104/57 L 93/50 L 114/54 L Pulse Oximetry Oxygen Delivery Fraction of Inspired Oxygen 01/07/24 21:50 01/07/24 20:00 01/07/24 20:03 Temperature 33.8 C L Pulse Rate 91 73 Respiratory Rate Blood Pressure 114/54 L Pulse Oximetry Oxygen Delivery Fraction of Inspired Oxygen 01/07/24 20:33 01/07/24 21:03 01/07/24 21:33 Temperature 34.4 C L 35.1 C L 35.7 C L Pulse Rate Respiratory Rate Blood Pressure Pulse Oximetry Oxygen Delivery Fraction of Inspired Oxygen 01/07/24 22:01 01/07/24 22:00 01/07/24 20:00 Temperature 36.2 C L Pulse Rate 88 Respiratory Rate Blood Pressure 104/51 L Pulse Oximetry Oxygen Delivery Fraction of Inspired Oxygen 50 01/07/24 20:00 01/07/24 20:00 01/07/24 22:00 Temperature 33.7 C L Pulse Rate 74 90 Respiratory Rate 32 H 26 H Blood Pressure 90/52 L Pulse Oximetry 100 100 Oxygen Delivery Mechanical Ventilation Fraction of Inspired Oxygen 50 01/07/24 22:00 01/07/24 22:00 01/07/24 22:26 Temperature Pulse Rate 90 90 87 Respiratory Rate 26 H Blood Pressure 109/48 L Pulse Oximetry Oxygen Delivery Fraction of Inspired Oxygen 01/07/24 22:30 01/07/24 22:00 01/07/24 23:03 Temperature 36.4 C 36.2 C L Pulse Rate 88 90 95 Respiratory Rate 24 H 26 H Blood Pressure 107/46 L 104/51 L Pulse Oximetry 100 100 100 Oxygen Delivery Mechanical Ventilation Fraction of Inspired Oxygen 30 01/08/24 00:00 01/08/24 00:53 01/08/24 00:00 Temperature Pulse Rate 96 94 96 Respiratory Rate 30 H Blood Pressure 114/51 L 119/51 L Pulse Oximetry Oxygen Delivery Fraction of Inspired Oxygen 01/08/24 00:00 01/08/24 01:05 01/08/24 01:20 Temperature Pulse Rate 96 101 H 92 Respiratory Rate 30 H Blood Pressure 141/54 H 125/55 L Pulse Oximetry Oxygen Delivery Fraction of Inspired Oxygen 01/08/24 01:33 01/08/24 00:00 01/08/24 00:00 Temperature Pulse Rate 91 Respiratory Rate Blood Pressure 126/58 L Pulse Oximetry 100 Oxygen Delivery Mechanical Ventilation Fraction of Inspired Oxygen 30 30 01/08/24 01:45 01/08/24 00:00 01/08/24 00:00 Temperature 36.1 C L Pulse Rate 90 97 97 Respiratory Rate 28 H Blood Pressure 126/54 L 114/51 L Pulse Oximetry 100 Oxygen Delivery Fraction of Inspired Oxygen 01/08/24 02:00 01/08/24 02:00 01/08/24 02:00 Temperature Pulse Rate 89 89 89 Respiratory Rate 30 H 30 H Blood Pressure 133/50 L Pulse Oximetry Oxygen Delivery Fraction of Inspired Oxygen 01/08/24 02:30 01/08/24 02:34 01/08/24 02:00 Temperature 36.1 C L Pulse Rate 87 88 90 Respiratory Rate 24 H Blood Pressure 120/49 L 119/48 L Pulse Oximetry 100 Oxygen Delivery Fraction of Inspired Oxygen 01/08/24 02:00 01/08/24 02:45 01/08/24 02:46 Temperature 36.0 C L 36.1 C L Pulse Rate 90 86 86 Respiratory Rate 30 H 24 H Blood Pressure 133/50 L 123/50 L 123/50 L Pulse Oximetry 100 100 Oxygen Delivery Fraction of Inspired Oxygen 01/08/24 03:06 01/08/24 03:17 01/08/24 03:45 Temperature 36.1 C L Pulse Rate 85 83 83 Respiratory Rate 24 H Blood Pressure 114/46 L 108/47 L 105/46 L Pulse Oximetry 100 Oxygen Delivery Fraction of Inspired Oxygen 01/08/24 04:00 01/08/24 04:00 01/08/24 04:00 Temperature 36.1 C L Pulse Rate 83 83 83 Respiratory Rate 24 H 24 H 24 H Blood Pressure 112/50 L Pulse Oximetry 100 Oxygen Delivery Fraction of Inspired Oxygen 01/08/24 04:00 01/08/24 04:45 01/08/24 04:00 Temperature 36.2 C L Pulse Rate 83 84 Respiratory Rate 24 H Blood Pressure 112/50 L 118/50 L Pulse Oximetry 100 100 Oxygen Delivery Mechanical Ventilation Fraction of Inspired Oxygen 25 01/08/24 04:00 01/08/24 04:00 01/08/24 05:20 Temperature 36.2 C L Pulse Rate 82 84 Respiratory Rate 24 H Blood Pressure 125/49 L Pulse Oximetry 100 Oxygen Delivery Fraction of Inspired Oxygen 25 01/08/24 01:55 01/08/24 05:01 01/08/24 06:00 Temperature Pulse Rate 87 86 83 Respiratory Rate Blood Pressure Pulse Oximetry 100 100 Oxygen Delivery Mechanical Ventilation Mechanical Ventilation Fraction of Inspired Oxygen 25 21 01/08/24 06:00 01/08/24 06:01 01/08/24 06:01 Temperature 36.2 C L Pulse Rate 83 83 83 Respiratory Rate 24 H 24 H 24 H Blood Pressure 111/47 L Pulse Oximetry 100 Oxygen Delivery Fraction of Inspired Oxygen 01/08/24 06:01 01/08/24 08:00 01/08/24 08:00 Temperature Pulse Rate 83 82 82 Respiratory Rate 24 H 24 H Blood Pressure 111/47 L Pulse Oximetry Oxygen Delivery Fraction of Inspired Oxygen 01/08/24 08:00 01/08/24 08:01 01/08/24 08:00 Temperature 36.2 C L Pulse Rate 82 81 84 Respiratory Rate 24 H Blood Pressure 123/48 L 117/47 L Pulse Oximetry 100 100 Oxygen Delivery Mechanical Ventilation Fraction of Inspired Oxygen 21 Intake/Output Intake/Output: Intake & Output 01/05/24 01/06/24 01/07/24 01/08/24 23:59 23:59 23:59 23:59 Intake Total 2289.0 1600.8 Output Total 0 80 Balance 2289.0 1520.8 Meds/Results Medications: Active Medications Generic Name Dose Route Start Last Admin Trade Name Freq PRN Reason Stop Dose Admin Dextrose 12.5 gm 01/07/24 13:18 Dextrose 50% 25 Gm/50 Ml Syringe IV PUSH PRN PRN Hypoglycemia Protocol Epoetin Dane-epbx 10,000 units 01/08/24 20:01 Epoetin Dane-Epbx 10,000 Units/Ml Vial IV PUSH 01/08/24 20:02 ONCE ONE Glucagon 1 mg 01/07/24 13:18 Glucagon For Inj 1 Mg Vial IM PRN PRN Hypoglycemia Protocol Glucose 15 gm 01/07/24 13:18 Glucose Oral Gel 15 Gm Of Glucse In 37.5 Gm Tube PO PRN PRN Hypoglycemia Protocol Heparin Sodium (Porcine) 5,000 units 01/07/24 21:00 01/08/24 08:39 Heparin Sodium 5,000 Units/Ml Vial SUB-Q 5,000 units Q12HR CARMELA Administration Hydrocortisone Sodium Succinate 100 mg 01/07/24 22:00 01/08/24 06:26 Hydrocortisone Sodium Succinate 100 Mg/2 Ml Vial IV PUSH 100 mg Q8HR CARMELA Administration Dextrose 1,000 mls @ 100 mls/hr 01/07/24 13:18 Dextrose 5% 1,000 Ml IVPB PRN PRN Hypoglycemia Protocol Albumin Human 50 mls @ 999 mls/hr 01/07/24 17:11 Albutein IVPB 02/06/24 17:10 Q10M PRN HYPOTENSION Fentanyl Citrate 2,500 mcg in 250 mls @ 5 mls/hr 01/07/24 18:55 01/08/24 08:00 Fentanyl 2,500 Mcg/Ns 250 Ml IV CONT 50 mcg/hr .Q50H CARMELA 5 mls/hr Titration Protocol 50 MCG/HR Midazolam HCl 100 mg in 100 mls @ 2 mls/hr 01/07/24 18:55 01/08/24 08:00 Versed 100 Mg/Ns 100 Ml IV CONT 2 mg/hr .Q50H CARMELA 2 mls/hr Titration Protocol 2 MG/HR Sodium Bicarbonate 150 meq/ 1,100 mls @ 100 mls/hr 01/07/24 19:00 01/08/24 06:27 Sterile Water IV CONT 100 mls/hr .Q11H CARMELA Administration Levetiracetam 500 mg in 100 mls @ 400 mls/hr 01/07/24 21:00 01/07/24 23:04 Keppra Iv IVPB Infused Q24H CARMELA Infusion Norepinephrine Bitartrate 8 mg in 250 mls @ 0 mls/hr 01/07/24 19:15 01/08/24 08:00 Levophed 8 Mg/D5w 250 Ml IV CONT 0 mcg/min .Q0M CARMELA 0 mls/hr Titration Protocol 0 MCG/MIN Ceftriaxone Sodium 1 gm in 50 mls @ 100 mls/hr 01/08/24 09:00 Rocephin 1 Gm/Ns 50 Ml IVPB Q24H CARMELA Insulin Aspart 3 - 6 units 01/07/24 18:00 01/08/24 06:58 Insulin Aspart (*Bkc) 100 Units/Ml SUB-Q Not Given Q6HR CARMELA Protocol Multi-Ingred Cream/Lotion/Oil/Oint 1 applic 01/07/24 21:00 01/07/24 22:45 Mineral Oil/White Petrolatum Ointment EACH EYE 1 applic Q12HR CARMLEA Administration Pantoprazole Sodium 40 mg 01/07/24 21:00 01/07/24 22:44 Pantoprazole Sodium Iv 40 Mg Vial IV PUSH 40 mg Q12HR CARMELA Administration Sodium Bicarbonate 1,300 mg 01/08/24 09:00 01/08/24 08:39 Sodium Bicarbonate Tab 650 Mg Tablet PO 01/10/24 08:59 1,300 mg BID ACRMELA Administration Radiology Results: ITS Impressions Head CT 01/07/24 13:41 IMPRESSION: 1. No acute intracranial process. 2. 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 3. Additional more diffuse likely age-related mild to moderate diffuse volume loss and mild scattered white matter hypoattenuation consistent with chronic small vessel ischemic disease. Abdomen/Pelvis CT 01/07/24 16:52 IMPRESSION: No acute abdominopelvic process. Specifically, there is no CT evidence of bowel obstruction. No definite evidence of renal injury, noting that low-grade renal injury as can be difficult to detect without contrast. Chest X-Ray 01/08/24 06:29 Impression: Clear lungs. Support tubes, as above. Labs Labs: Laboratory Results - last 24 hr 01/07/24 01/07/24 01/07/24 12:22 12:36 12:38 WBC 12.3 H RBC 2.81 L Hgb 8.1 L Hct 27.3 L MCV 97.2 MCH 28.8 MCHC 29.7 L RDW 12.5 Plt Count 416 H MPV 10.8 H Immature Gran % (Auto) 1.2 H Neut % (Auto) 79.7 H Lymph % (Auto) 17.2 L [place] % (Auto) 1.4 L Eos % (Auto) 0.0 Baso % (Auto) 0.5 Lymph # (Auto) 2.11 [place] # (Auto) 0.2 Eos # (Auto) 0.0 Baso # (Auto) 0.1 Abs Immat Gran (auto) 0.15 H Absolute Neuts (auto) 9.8 H Absolute Nucleated RBC 0.000 Nucleated RBC % 0.0 Platelet Estimate Increased Ovalocytes 1+ Schistocytes None seen PT 17.1 H INR 1.4 APTT 31.6 Fibrinogen D-Dimer Puncture Site ABG pH ABG pCO2 ABG pO2 ABG PO2/FiO2 Ratio ABG HCO3 ABG O2 Saturation ABG O2 Content ABG Base Excess A-a Gradient Oxyhemoglobin Carboxyhemoglobin Methemoglobin Reduced Hemoglobin Total Hemoglobin O2 Delivery Device O2 Liters/Min Minute Volume Vent Rate Vent Mode FiO2 Tidal Volume PEEP Peak Inspir Pressure Pressure Support Sodium 136 L Potassium 5.7 H Chloride 99 Carbon Dioxide < 5 L Anion Gap BUN 70 H D Creatinine 8.90 H Estim Creat Clear Calc 6 Estimated GFR 4 L Glucose 129 H POC Capillary Glucose 130 H Hemoglobin A1c 7.4 H Lactic Acid Calcium 8.6 Phosphorus Magnesium Iron 92 TIBC 260 L % Saturation 35 Ferritin 157.00 Total Bilirubin 0.3 AST 22 ALT 20 Alkaline Phosphatase 81 Total Creatine Kinase Troponin I < 0.012 C-Reactive Protein Total Protein 8.0 Albumin 4.7 Lipase Vitamin B12 Folate Beta-Hydroxybutyrate/Acetoacetate Procalcitonin 0.2 TSH (Reflex) 1.500 Urine Color Urine Appearance Urine pH Ur Specific [place] Urine Protein Urine Glucose (UA) Urine Ketones Ur Blood (Man) Urine Nitrate Urine Bilirubin Urine Urobilinogen Add Ur Microanalysis Leukocyte Esterase Rfl Urine RBC Urine WBC Ur Squamous Epith Cells Urine Bacteria Urine Casts Nasal MRSA (PCR) Salicylates Urine Opiates Screen Urine Methadone Screen Acetaminophen Ur Barbiturates Screen Ur Phencyclidine Scrn Ur Amphetamine Screen U Benzodiazepines Scrn Urine Cocaine Screen U Cannabinoids Screen Hepatitis A IgM Ab Negative Hep Bs Antigen Negative Hep Bs Antibody Negative Hep B Core IgM Ab Negative Hepatitis C Ab Screen Negative Influenza A (RT-PCR) Influenza B (RT-PCR) SARS-CoV-2 RNA (RT-PCR) Blood Type Antibody Screen Crossmatch 01/07/24 01/07/2401/06/24 12:40 13:09 14:13 WBC RBC Hgb Hct MCV MCH MCHC RDW Plt Count MPV Immature Gran % (Auto) Neut % (Auto) Lymph % (Auto) [place] % (Auto) Eos % (Auto) Baso % (Auto) Lymph # (Auto) [place] # (Auto) Eos # (Auto) Baso # (Auto) Abs Immat Gran (auto) Absolute Neuts (auto) Absolute Nucleated RBC Nucleated RBC % Platelet Estimate Ovalocytes Schistocytes PT INR APTT Fibrinogen D-Dimer Puncture Site Left brachial ABG pH 6.940 L* ABG pCO2 15.8 L* ABG pO2 135.0 H ABG PO2/FiO2 Ratio 6.43 ABG HCO3 3.3 L ABG O2 Saturation 96.7 ABG O2 Content 12.6 L ABG Base Excess -27.0 A-a Gradient < 0.0 Oxyhemoglobin 97.3 Carboxyhemoglobin 0.2 Methemoglobin 0.4 Reduced Hemoglobin 2.1 Total Hemoglobin 9.0 L O2 Delivery Device Room air O2 Liters/Min Not Reportable Minute Volume Vent Rate Vent Mode FiO2 21 Tidal Volume PEEP Peak Inspir Pressure Pressure Support Sodium Potassium Chloride Carbon Dioxide Anion Gap BUN Creatinine Estim Creat Clear Calc Estimated GFR Glucose POC Capillary Glucose 213 H Hemoglobin A1c Lactic Acid Calcium Phosphorus Magnesium Iron TIBC % Saturation Ferritin Total Bilirubin AST ALT Alkaline Phosphatase Total Creatine Kinase Troponin I C-Reactive Protein Total Protein Albumin Lipase Vitamin B12 Folate Beta-Hydroxybutyrate/Acetoacetate Procalcitonin TSH (Reflex) Urine Color Yellow Urine Appearance Turbid H Urine pH 7.5 Ur Specific [place] 1.011 Urine Protein 2+ H Urine Glucose (UA) Negative Urine Ketones Trace H Ur Blood (Man) Negative Urine Nitrate Negative Urine Bilirubin Negative Urine Urobilinogen 0.2 Add Ur Microanalysis Reviewed Leukocyte Esterase Rfl 3+ H Urine RBC 0-2 Urine WBC >100 H Ur Squamous Epith Cells None seen Urine Bacteria 4+ Urine Casts 6-10 Nasal MRSA (PCR) Salicylates Urine Opiates Screen Negative Urine Methadone Screen Negative Acetaminophen Ur Barbiturates Screen Negative Ur Phencyclidine Scrn Negative Ur Amphetamine Screen Negative U Benzodiazepines Scrn Negative Urine Cocaine Screen Negative U Cannabinoids Screen Negative Hepatitis A IgM Ab Hep Bs Antigen Hep Bs Antibody Hep B Core IgM Ab Hepatitis C Ab Screen Influenza A (RT-PCR) Influenza B (RT-PCR) SARS-CoV-2 RNA (RT-PCR) Blood Type Antibody Screen Crossmatch 01/07/24 01/07/24 01/07/24 15:41 17:04 18:42 WBC RBC Hgb Hct MCV MCH MCHC RDW Plt Count MPV Immature Gran % (Auto) Neut % (Auto) Lymph % (Auto) [place] % (Auto) Eos % (Auto) Baso % (Auto) Lymph # (Auto) [place] # (Auto) Eos # (Auto) Baso # (Auto) Abs Immat Gran (auto) Absolute Neuts (auto) Absolute Nucleated RBC Nucleated RBC % Platelet Estimate Ovalocytes Schistocytes PT INR APTT Fibrinogen D-Dimer Puncture Site ABG pH ABG pCO2 ABG pO2 ABG PO2/FiO2 Ratio ABG HCO3 ABG O2 Saturation ABG O2 Content ABG Base Excess A-a Gradient Oxyhemoglobin Carboxyhemoglobin Methemoglobin Reduced Hemoglobin Total Hemoglobin O2 Delivery Device O2 Liters/Min Minute Volume Vent Rate Vent Mode FiO2 Tidal Volume PEEP Peak Inspir Pressure Pressure Support Sodium 140 Potassium 5.0 Chloride 101 Carbon Dioxide < 5 L Anion Gap BUN 70 H Creatinine 9.30 H Estim Creat Clear Calc 6 Estimated GFR 4 L Glucose 163 H POC Capillary Glucose 144 H Hemoglobin A1c Lactic Acid 15.8 H* Calcium 8.5 Phosphorus Magnesium Iron TIBC % Saturation Ferritin Total Bilirubin AST ALT Alkaline Phosphatase Total Creatine Kinase Troponin I C-Reactive Protein Total Protein Albumin Lipase Vitamin B12 311.0 Folate 18.1 Beta-Hydroxybutyrate/Acetoacetate 7.59 H Procalcitonin TSH (Reflex) Urine Color Urine Appearance Urine pH Ur Specific [place] Urine Protein Urine Glucose (UA) Urine Ketones Ur Blood (Man) Urine Nitrate Urine Bilirubin Urine Urobilinogen Add Ur Microanalysis Leukocyte Esterase Rfl Urine RBC Urine WBC Ur Squamous Epith Cells Urine Bacteria Urine Casts Nasal MRSA (PCR) Salicylates < 1.0 L Urine Opiates Screen Urine Methadone Screen Acetaminophen < 10 L Ur Barbiturates Screen Ur Phencyclidine Scrn Ur Amphetamine Screen U Benzodiazepines Scrn Urine Cocaine Screen U Cannabinoids Screen Hepatitis A IgM Ab Hep Bs Antigen Hep Bs Antibody Hep B Core IgM Ab Hepatitis C Ab Screen Influenza A (RT-PCR) Influenza B (RT-PCR) SARS-CoV-2 RNA (RT-PCR) Blood Type Antibody Screen Crossmatch 01/07/24 01/07/24 01/07/24 18:47 19:05 19:36 WBC RBC Hgb Hct MCV MCH MCHC RDW Plt Count MPV Immature Gran % (Auto) Neut % (Auto) Lymph % (Auto) [place] % (Auto) Eos % (Auto) Baso % (Auto) Lymph # (Auto) [place] # (Auto) Eos # (Auto) Baso # (Auto) Abs Immat Gran (auto) Absolute Neuts (auto) Absolute Nucleated RBC Nucleated RBC % Platelet Estimate Ovalocytes Schistocytes PT INR APTT Fibrinogen D-Dimer Puncture Site Right brachial ABG pH 6.712 L* ABG pCO2 13.8 L* ABG pO2 302.2 H ABG PO2/FiO2 Ratio 6.04 ABG HCO3 1.7 L ABG O2 Saturation 99.0 ABG O2 Content 11.2 L ABG Base Excess -32.0 A-a Gradient 38.8 Oxyhemoglobin 98.3 Carboxyhemoglobin 0.6 Methemoglobin 0.6 Reduced Hemoglobin 0.5 Total Hemoglobin 7.5 L* O2 Delivery Device Ventilator O2 Liters/Min Not Reportable Minute Volume Not Reportable Vent Rate 24 Vent Mode Cmv FiO2 50 Tidal Volume 450 PEEP 5 Peak Inspir Pressure Not Reportable Pressure Support Not Reportable Sodium Potassium Chloride Carbon Dioxide Anion Gap BUN Creatinine Estim Creat Clear Calc Estimated GFR Glucose POC Capillary Glucose Hemoglobin A1c Lactic Acid 20.5 H* Calcium Phosphorus Magnesium Iron TIBC % Saturation Ferritin Total Bilirubin AST ALT Alkaline Phosphatase Total Creatine Kinase Troponin I C-Reactive Protein Total Protein Albumin Lipase Vitamin B12 Folate Beta-Hydroxybutyrate/Acetoacetate Procalcitonin TSH (Reflex) Urine Color Urine Appearance Urine pH Ur Specific [place] Urine Protein Urine Glucose (UA) Urine Ketones Ur Blood (Man) Urine Nitrate Urine Bilirubin Urine Urobilinogen Add Ur Microanalysis Leukocyte Esterase Rfl Urine RBC Urine WBC Ur Squamous Epith Cells Urine Bacteria Urine Casts Nasal MRSA (PCR) Not detected Salicylates Urine Opiates Screen Urine Methadone Screen Acetaminophen Ur Barbiturates Screen Ur Phencyclidine Scrn Ur Amphetamine Screen U Benzodiazepines Scrn Urine Cocaine Screen U Cannabinoids Screen Hepatitis A IgM Ab Hep Bs Antigen Hep Bs Antibody Hep B Core IgM Ab Hepatitis C Ab Screen Influenza A (RT-PCR) Negative Influenza B (RT-PCR) Negative SARS-CoV-2 RNA (RT-PCR) Negative Blood Type Antibody Screen Crossmatch 01/07/24 01/07/24 01/07/24 22:41 22:41 22:41 WBC 15.3 H RBC 2.37 L Hgb 6.8 L* Hct 21.3 L MCV 89.9 D MCH 28.7 MCHC 31.9 L RDW 12.7 Plt Count 338 339 MPV 10.8 H Immature Gran % (Auto) Neut % (Auto) Lymph % (Auto) [place] % (Auto) Eos % (Auto) Baso % (Auto) Lymph # (Auto) [place] # (Auto) Eos # (Auto) Baso # (Auto) Abs Immat Gran (auto) Absolute Neuts (auto) Absolute Nucleated RBC Nucleated RBC % Platelet Estimate Ovalocytes Schistocytes PT 16.4 H INR 1.3 APTT 31.6 Fibrinogen 313 D-Dimer 1.09 H Puncture Site ABG pH ABG pCO2 ABG pO2 ABG PO2/FiO2 Ratio ABG HCO3 ABG O2 Saturation ABG O2 Content ABG Base Excess A-a Gradient Oxyhemoglobin Carboxyhemoglobin Methemoglobin Reduced Hemoglobin Total Hemoglobin O2 Delivery Device O2 Liters/Min Minute Volume Vent Rate Vent Mode FiO2 Tidal Volume PEEP Peak Inspir Pressure Pressure Support Sodium 140 Potassium 3.3 L Chloride 94 L Carbon Dioxide 11 L Anion Gap 35 H BUN 23 H D Creatinine 2.70 H Estim Creat Clear Calc 19 Estimated GFR 18 L Glucose 112 H POC Capillary Glucose Hemoglobin A1c Lactic Acid 17.5 H* Calcium 7.7 L Phosphorus 3.3 Magnesium 1.7 1.7 Iron TIBC % Saturation Ferritin Total Bilirubin 0.3 AST 29 ALT 21 Alkaline Phosphatase 88 Total Creatine Kinase Troponin I C-Reactive Protein Total Protein 7.0 Albumin 3.8 Lipase Vitamin B12 Folate Beta-Hydroxybutyrate/Acetoacetate Procalcitonin TSH (Reflex) Urine Color Urine Appearance Urine pH Ur Specific [place] Urine Protein Urine Glucose (UA) Urine Ketones Ur Blood (Man) Urine Nitrate Urine Bilirubin Urine Urobilinogen Add Ur Microanalysis Leukocyte Esterase Rfl Urine RBC Urine WBC Ur Squamous Epith Cells Urine Bacteria Urine Casts Nasal MRSA (PCR) Salicylates Urine Opiates Screen Urine Methadone Screen Acetaminophen Ur Barbiturates Screen Ur Phencyclidine Scrn Ur Amphetamine Screen U Benzodiazepines Scrn Urine Cocaine Screen U Cannabinoids Screen Hepatitis A IgM Ab Hep Bs Antigen Hep Bs Antibody Hep B Core IgM Ab Hepatitis C Ab Screen Influenza A (RT-PCR) Influenza B (RT-PCR) SARS-CoV-2 RNA (RT-PCR) Blood Type Antibody Screen Crossmatch 01/07/24 01/08/24 01/08/24 23:30 00:18 00:26 WBC RBC Hgb Hct MCV MCH MCHC RDW Plt Count MPV Immature Gran % (Auto) Neut % (Auto) Lymph % (Auto) [place] % (Auto) Eos % (Auto) Baso % (Auto) Lymph # (Auto) [place] # (Auto) Eos # (Auto) Baso # (Auto) Abs Immat Gran (auto) Absolute Neuts (auto) Absolute Nucleated RBC Nucleated RBC % Platelet Estimate Ovalocytes Schistocytes PT INR APTT Fibrinogen D-Dimer Puncture Site Right brachial ABG pH 7.266 L* ABG pCO2 17.9 L* ABG pO2 156.7 H ABG PO2/FiO2 Ratio 5.22 ABG HCO3 8.0 L ABG O2 Saturation 98.8 ABG O2 Content 10.4 L ABG Base Excess -17.3 A-a Gradient 36.2 Oxyhemoglobin 97.9 Carboxyhemoglobin Methemoglobin Reduced Hemoglobin Total Hemoglobin 7.3 L* O2 Delivery Device Ventilator O2 Liters/Min Not Reportable Minute Volume Not Reportable Vent Rate 24 Vent Mode Cmv FiO2 30 Tidal Volume 450 PEEP 5 Peak Inspir Pressure Not Reportable Pressure Support Not Reportable Sodium Potassium Chloride Carbon Dioxide Anion Gap BUN Creatinine Estim Creat Clear Calc Estimated GFR Glucose POC Capillary Glucose 110 H Hemoglobin A1c Lactic Acid Calcium Phosphorus Magnesium Iron TIBC % Saturation Ferritin Total Bilirubin AST ALT Alkaline Phosphatase Total Creatine Kinase Troponin I C-Reactive Protein Total Protein Albumin Lipase Vitamin B12 Folate Beta-Hydroxybutyrate/Acetoacetate Procalcitonin TSH (Reflex) Urine Color Urine Appearance Urine pH Ur Specific [place] Urine Protein Urine Glucose (UA) Urine Ketones Ur Blood (Man) Urine Nitrate Urine Bilirubin Urine Urobilinogen Add Ur Microanalysis Leukocyte Esterase Rfl Urine RBC Urine WBC Ur Squamous Epith Cells Urine Bacteria Urine Casts Nasal MRSA (PCR) Salicylates Urine Opiates Screen Urine Methadone Screen Acetaminophen Ur Barbiturates Screen Ur Phencyclidine Scrn Ur Amphetamine Screen U Benzodiazepines Scrn Urine Cocaine Screen U Cannabinoids Screen Hepatitis A IgM Ab Hep Bs Antigen Hep Bs Antibody Hep B Core IgM Ab Hepatitis C Ab Screen Influenza A (RT-PCR) Influenza B (RT-PCR) SARS-CoV-2 RNA (RT-PCR) Blood Type O Positive Antibody Screen Negative Crossmatch See Detail 01/08/24 01/08/24 05:03 06:22 WBC 13.4 H RBC 2.59 L Hgb 7.7 L Hct 23.4 L MCV 90.3 MCH 29.7 MCHC 32.9 RDW 13.0 Plt Count 243 MPV 10.9 H Immature Gran % (Auto) 1.2 H Neut % (Auto) 85.4 H Lymph % (Auto) 8.1 L [place] % (Auto) 5.1 Eos % (Auto) 0.0 Baso % (Auto) 0.2 Lymph # (Auto) 1.09 [place] # (Auto) 0.7 H Eos # (Auto) 0.0 Baso # (Auto) 0.0 Abs Immat Gran (auto) 0.16 H Absolute Neuts (auto) 11.4 H Absolute Nucleated RBC 0.000 Nucleated RBC % 0.0 Platelet Estimate Ovalocytes Schistocytes PT 17.3 H INR 1.4 APTT 32.8 Fibrinogen D-Dimer Puncture Site Right brachial ABG pH 7.317 L ABG pCO2 17.6 L* ABG pO2 142.2 H ABG PO2/FiO2 Ratio 5.69 ABG HCO3 8.8 L ABG O2 Saturation 98.7 ABG O2 Content 11.4 L ABG Base Excess -15.6 A-a Gradient 15.2 Oxyhemoglobin 97.6 Carboxyhemoglobin 0.6 Methemoglobin 0.2 Reduced Hemoglobin 1.6 Total Hemoglobin 8.1 L O2 Delivery Device Ventilator O2 Liters/Min Not Reportable Minute Volume Not Reportable Vent Rate 24 Vent Mode Cmv FiO2 25 Tidal Volume 450 PEEP 5 Peak Inspir Pressure Not Reportable Pressure Support Not Reportable Sodium 141 Potassium 3.7 Chloride 91 L Carbon Dioxide 8 L Anion Gap 42 H BUN 28 H Creatinine 3.60 H Estim Creat Clear Calc 15 Estimated GFR 13 L Glucose 198 H POC Capillary Glucose Hemoglobin A1c Lactic Acid 13.1 H* Calcium 7.5 L Phosphorus Magnesium Iron TIBC % Saturation Ferritin Total Bilirubin 0.4 AST 38 H ALT 19 Alkaline Phosphatase 77 Total Creatine Kinase 84 Troponin I C-Reactive Protein 1.2 H Total Protein 6.0 L Albumin 3.4 L Lipase 450 H Vitamin B12 Folate Beta-Hydroxybutyrate/Acetoacetate Procalcitonin TSH (Reflex) Urine Color Urine Appearance Urine pH Ur Specific [place] Urine Protein Urine Glucose (UA) Urine Ketones Ur Blood (Man) Urine Nitrate Urine Bilirubin Urine Urobilinogen Add Ur Microanalysis Leukocyte Esterase Rfl Urine RBC Urine WBC Ur Squamous Epith Cells Urine Bacteria Urine Casts Nasal MRSA (PCR) Salicylates Urine Opiates Screen Urine Methadone Screen Acetaminophen Ur Barbiturates Screen Ur Phencyclidine Scrn Ur Amphetamine Screen U Benzodiazepines Scrn Urine Cocaine Screen U Cannabinoids Screen Hepatitis A IgM Ab Hep Bs Antigen Hep Bs Antibody Hep B Core IgM Ab Hepatitis C Ab Screen Influenza A (RT-PCR) Influenza B (RT-PCR) SARS-CoV-2 RNA (RT-PCR) Blood Type Antibody Screen Crossmatch Quality VTE Prophylaxis VTE prophylaxis: mechanical ordered and pharmacologic ordered
[2024-01-08] MEDS: MINERAL OIL/WHITE PETROLATUM OINTMENT 1 APPLIC EACH EYE ×2 (09:00→21:12)
[2024-01-08 09:24] LABS: Ammonia < 9 umol/L (9-30)
[2024-01-08 09:26] LABS: Reflex Lactic Acid Yes or No Add Lactic
[2024-01-08 10:07] LABS: Lactic Acid 5.2 mmol/L (0.7-2.0)
--- NOTE | 2024-01-08 10:14 | P.PNNP_ITS ---
Progress Note: A&P Assessment and Plan (1) Acute kidney failure: Code(s): N17.9 - Acute kidney failure, unspecified Status: Acute Assessment and Plan: * baseline creatinine not known * reported has some underlying renal insufficiency/CKD per family * now complicated by severe acidosis and hyperkalemia on admission * etiology likely multifactorial: * infection/sepsis * hemodynamic instability/shock * SRINIVAS-I + HCTZ use prior to admission * possible prerenal factors * metformin use prior to admission * continued BP medications prior to admission * CT of abd/pelvis and renal ultrasound negative for obstruction * s/p aggressive IVF resuscitation * multiple pushes of IV bicarb * VISUAL STYLIST/HD yesterday and today more so for clearance of uremic toxins and treatment of acidosis * follow repeat labs and UOP (2) Septic shock: Code(s): A41.9 - Sepsis, unspecified organism; R65.21 - Severe sepsis with septic shock Status: Acute Assessment and Plan: * initially normotensive on presentation * however, worsening hypotension in the ER * s/p aggressive IVF resuscitation * presumsed source = aspiration pneumonia + UTI * follow culture data * on empiric antibiotics * vasopressor therapy to maintain MAP - weaned off * follow trend of hemodynamics (3) Acute respiratory failure: Code(s): J96.00 - Acute respiratory failure, unspecified whether with hypoxia or hypercapnia Status: Acute Assessment and Plan: * due to AMS + emesis and concerns for aspiration and inability to protect airway * intubated and on mechanical ventilation * continue ventilator support * weaning when more stable (4) Acidosis: Code(s): E87.20 - Acidosis, unspecified Status: Acute Assessment and Plan: * due to a combination of CARMEN, lactic acidosis, and sepsis * s/p multiple pushes of IV bicarb * VISUAL STYLIST/dialysis today and yesterday to attempt correction of acidosis * also on bicarb gtt and oral bicarbonate * trend lactic acid * follow ABGs (5) Hyperkalemia: Code(s): E87.5 - Hyperkalemia Status: Acute Assessment and Plan: * better * as noted on admission labs * due to CARMEN/ARF * s/p medical management in the ER * dialysis should help further correct/stabilize * follow trend of repeat K+ levels (6) Encephalopathy: Code(s): G93.40 - Encephalopathy, unspecified Status: Acute Assessment and Plan: * as noted by presentation of altered mental status, delirium, and confusion * presumably related to uremia, infection, along with severe acidosis * TSH and ammonia levels noted * reassess when more stable (7) Insulin dependent diabetes mellitus: Status: Chronic Assessment and Plan: * holding metformin * follow accu-cheks * 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 Subjective Date/time seen: 01/08/24 10:14 Interval history: Follow-up for acute kidney injury/acute renal failure (on chronic kidney disease??). Tolerated dialysis yesterday evening and tolerating dialysis at the time of my visit (seen on HD at 10:05AM); remains intubated/sedated and on mechanical ventilation; potassium better but acidosis persists by recent labs although lactic acid downtrending; minimal urine output noted since admission; weaned off vasopressor therapy with relatively stable hemodynamics. Exam Narrative: General: somewhat ill appearing female intubated/sedated and on mechanical ventilation Heart: normal S1 and S2; no rub Lungs: coarse breath sounds Abdomen: soft, nontender, nondistended, hypoactive bowel sounds Extremities: no cyanosis or clubbing; no edema Skin: warm and dry Objective Data Vital Signs Vital Signs: Vital Signs Temp Pulse Resp BP Pulse Ox O2 Del Method FiO2 01/08/24 10:00 97.9 F 80 24 H 107/47 L 100 01/08/24 09:45 82 117/54 L 01/08/24 09:30 83 127/50 L 01/08/24 09:15 87 150/53 H 01/08/24 09:00 88 144/49 H 01/08/24 08:48 84 134/54 L 01/08/24 08:36 97.2 F L 83 25 H 114/48 L 100 01/08/24 08:36 21 01/08/24 08:00 97.1 F L 84 24 H 117/47 L 100 01/08/24 08:01 81 100 Mechanical Ventilation 21 01/08/24 08:00 82 123/48 L 01/08/24 08:00 82 24 H 01/08/24 08:00 82 24 H 01/08/24 06:01 83 111/47 L 01/08/24 06:01 83 24 H 01/08/24 06:01 83 24 H 01/08/24 06:00 97.1 F L 83 24 H 111/47 L 100 01/08/24 06:00 83 01/08/24 05:01 86 100 Mechanical Ventilation 01/08/24 01:55 87 100 Mechanical Ventilation 01/08/24 05:20 97.2 F L 84 24 H 125/49 L 100 01/08/24 04:00 82 01/08/24 04:00 25 01/08/24 04:00 100 Mechanical Ventilation 01/08/24 04:45 97.2 F L 84 24 H 118/50 L 100 01/08/24 04:00 83 112/50 L 01/08/24 04:00 83 24 H 01/08/24 04:00 83 24 H 01/08/24 04:00 97.0 F L 83 24 H 112/50 L 100 01/08/24 03:45 97.0 F L 83 24 H 105/46 L 100 01/08/24 03:17 83 108/47 L 01/08/24 03:06 85 114/46 L 01/08/24 02:46 86 123/50 L 01/08/24 02:45 96.9 F L 86 24 H 123/50 L 100 01/08/24 02:00 96.8 F L 90 30 H 133/50 L 100 01/08/24 02:00 90 01/08/24 02:34 88 119/48 L 01/08/24 02:30 96.9 F L 87 24 H 120/49 L 100 01/08/24 02:00 89 30 H 01/08/24 02:00 89 30 H 01/08/24 02:00 89 133/50 L 01/08/24 00:00 97.0 F L 97 28 H 114/51 L 100 01/08/24 00:00 97 01/08/24 01:45 90 126/54 L 01/08/24 00:00 30 01/08/24 00:00 100 Mechanical Ventilation 30 01/08/24 01:33 91 126/58 L 01/08/24 01:20 92 125/55 L 01/08/24 01:05 101 H 141/54 H 01/08/24 00:00 96 30 H 01/08/24 00:00 96 30 H 01/08/24 00:53 94 119/51 L 01/08/24 00:00 96 114/51 L 01/07/24 23:03 95 100 Mechanical Ventilation 30 01/07/24 22:00 97.1 F L 90 26 H 104/51 L 100 01/07/24 22:30 97.6 F 88 24 H 107/46 L 100 01/07/24 22:26 87 109/48 L 01/07/24 22:00 90 01/07/24 22:00 90 26 H 01/07/24 22:00 90 26 H 01/07/24 20:00 92.7 F L 74 32 H 90/52 L 100 01/07/24 20:00 100 Mechanical Ventilation 50 01/07/24 20:00 50 01/07/24 22:00 88 104/51 L 01/07/24 22:01 97.2 F L 01/07/24 21:33 96.3 F L 01/07/24 21:03 95.2 F L 01/07/24 20:33 94.0 F L 01/07/24 20:03 92.9 F L 01/07/24 20:00 73 01/07/24 21:50 91 114/54 L 01/07/24 21:45 94 114/54 L 01/07/24 22:15 89 93/50 L 01/07/24 22:00 89 104/57 L 01/07/24 21:30 84 140/51 L 01/07/24 21:37 84 29 H 01/07/24 21:36 84 29 H 01/07/24 20:28 73 32 H 01/07/24 21:35 87 140/51 L 01/07/24 21:00 76 102/48 L 01/07/24 20:10 73 100 Mechanical Ventilation 50 01/07/24 20:45 76 98/50 L 01/07/24 21:00 73 102/48 L 01/07/24 20:15 75 109/51 L 01/07/24 20:33 73 82/52 L 01/07/24 20:28 73 32 H 01/07/24 20:05 73 88/49 L 01/07/24 19:45 98 90/50 L 01/07/24 19:30 78 95/49 L 01/07/24 19:15 70 89/47 L 01/07/24 21:15 81 105/56 L 01/07/24 20:45 75 110/50 L 01/07/24 20:30 73 82/52 L 01/07/24 20:15 75 109/51 L 01/07/24 20:00 73 90/52 L 01/07/24 19:00 88.0 F L 64 25 H 104/50 L 100 01/07/24 19:00 50 01/07/24 19:09 67 87/40 L 01/07/24 18:50 64 28 H 89/47 L 100 01/07/24 18:45 61 28 H 104/50 L 100 01/07/24 18:30 60 28 H 100 01/07/24 18:15 65 28 H 86/41 L 100 01/07/24 17:55 73 100 Mechanical Ventilation 24 01/07/24 19:48 92.4 F L 01/07/24 19:50 75 85/51 L 01/07/24 18:50 68 89/47 L 01/07/24 18:00 100 Mechanical Ventilation 50 01/07/24 18:00 50 01/07/24 18:00 69 01/07/24 19:33 91.2 F L 01/07/24 19:18 90.8 F L 01/07/24 18:00 88 F L 69 28 H 91/46 L 100 01/07/24 19:27 75 30 H 01/07/24 19:26 75 29 H 01/07/24 19:03 90.6 F L 01/07/24 18:58 61 28 H 01/07/24 17:45 69 28 H 01/07/24 17:00 79 22 H 121/50 L 100 01/07/24 15:15 72 21 H 137/41 L 100 01/07/24 16:52 81 22 H 01/07/24 16:22 91 24 H 120/50 L 100 01/07/24 16:09 83 26 H 01/07/24 15:27 71 22 H 01/07/24 15:19 105 H 100 Mechanical Ventilation 24 01/07/24 14:17 100 01/07/24 14:16 140/55 L 100 01/07/24 14:00 75 17 01/07/24 13:51 68 15 127/47 L 100 01/07/24 13:45 69 17 100 01/07/24 13:00 81 16 01/07/24 12:54 86 13 01/07/24 12:21 69 100 01/07/24 14:45 85 28 H 01/07/24 14:27 74 24 H 159/66 H 100 01/07/24 13:47 68 26 H 01/07/24 12:36 96 Room Air 01/07/24 12:15 97.6 F 68 14 123/45 L 98 Intake/Output Intake/Output: Intake & Output 01/05/24 01/06/24 01/07/24 01/08/24 23:59 23:59 23:59 23:59 Intake Total 2289.0 1614.8 Output Total 0 80 Balance 2289.0 1534.8 Meds/Results Medications: Active Medications Generic Name Dose Route Start Last Admin Trade Name Freq PRN Reason Stop Dose Admin Dextrose 12.5 gm 01/07/24 13:18 Dextrose 50% 25 Gm/50 Ml Syringe IV PUSH PRN PRN Hypoglycemia Protocol Epoetin Dane-epbx 10,000 units 01/08/24 20:01 Epoetin Dane-Epbx 10,000 Units/Ml Vial IV PUSH 01/08/24 20:02 ONCE ONE Glucagon 1 mg 01/07/24 13:18 Glucagon For Inj 1 Mg Vial IM PRN PRN Hypoglycemia Protocol Glucose 15 gm 01/07/24 13:18 Glucose Oral Gel 15 Gm Of Glucse In 37.5 Gm Tube PO PRN PRN Hypoglycemia Protocol Heparin Sodium (Porcine) 5,000 units 01/07/24 21:00 01/08/24 08:39 Heparin Sodium 5,000 Units/Ml Vial SUB-Q 5,000 units Q12HR CARMELA Administration Hydrocortisone Sodium Succinate 100 mg 01/07/24 22:00 01/08/24 06:26 Hydrocortisone Sodium Succinate 100 Mg/2 Ml Vial IV PUSH 100 mg Q8HR CARMELA Administration Dextrose 1,000 mls @ 100 mls/hr 01/07/24 13:18 Dextrose 5% 1,000 Ml IVPB PRN PRN Hypoglycemia Protocol Albumin Human 50 mls @ 999 mls/hr 01/07/24 17:11 Albutein IVPB 02/06/24 17:10 Q10M PRN HYPOTENSION Fentanyl Citrate 2,500 mcg in 250 mls @ 5 mls/hr 01/07/24 18:55 01/08/24 10:00 Fentanyl 2,500 Mcg/Ns 250 Ml IV CONT 50 mcg/hr .Q50H CARMELA 5 mls/hr Titration Protocol 50 MCG/HR Midazolam HCl 100 mg in 100 mls @ 2 mls/hr 01/07/24 18:55 01/08/24 10:00 Versed 100 Mg/Ns 100 Ml IV CONT 2 mg/hr .Q50H CARMELA 2 mls/hr Titration Protocol 2 MG/HR Sodium Bicarbonate 150 meq/ 1,100 mls @ 100 mls/hr 01/07/24 19:00 01/08/24 06:27 Sterile Water IV CONT 100 mls/hr .Q11H CARMELA Administration Levetiracetam 500 mg in 100 mls @ 400 mls/hr 01/07/24 21:00 01/07/24 23:04 Keppra Iv IVPB Infused Q24H CARMELA Infusion Norepinephrine Bitartrate 8 mg in 250 mls @ 0 mls/hr 01/07/24 19:15 01/08/24 10:00 Levophed 8 Mg/D5w 250 Ml IV CONT 0 mcg/min .Q0M CARMELA 0 mls/hr Titration Protocol 0 MCG/MIN Ceftriaxone Sodium 2 gm in 100 mls @ 200 mls/hr 01/08/24 12:30 Rocephin 2 Gm/Ns 100 Ml IVPB DAILY CARMELA Insulin Aspart 3 - 6 units 01/07/24 18:00 01/08/24 06:58 Insulin Aspart (*Bkc) 100 Units/Ml SUB-Q Not Given Q6HR CARMELA Protocol Multi-Ingred Cream/Lotion/Oil/Oint 1 applic 01/07/24 21:00 01/08/24 09:00 Mineral Oil/White Petrolatum Ointment EACH EYE 1 applic Q12HR CARMELA Administration Pantoprazole Sodium 40 mg 01/07/24 21:00 01/07/24 22:44 Pantoprazole Sodium Iv 40 Mg Vial IV PUSH 40 mg Q12HR CARMELA Administration Sodium Bicarbonate 1,300 mg 01/08/24 09:00 01/08/24 08:39 Sodium Bicarbonate Tab 650 Mg Tablet PO 01/10/24 08:59 1,300 mg BID CARMELA Administration Radiology Results: ITS Impressions Head CT 01/07/24 13:41 IMPRESSION: 1. No acute intracranial process. 2. 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 3. Additional more diffuse likely age-related mild to moderate diffuse volume loss and mild scattered white matter hypoattenuation consistent with chronic small vessel ischemic disease. Abdomen/Pelvis CT 01/07/24 16:52 IMPRESSION: No acute abdominopelvic process. Specifically, there is no CT evidence of bowel obstruction. No definite evidence of renal injury, noting that low-grade renal injury as can be difficult to detect without contrast. Chest X-Ray 01/08/24 06:29 Impression: Clear lungs. Support tubes, as above. Renal Ultrasound 01/08/24 10:47 IMPRESSION: 1. Normal kidney sizes. No hydronephrosis. Labs Labs: Laboratory Tests 01/08/24 06:22 01/08/24 06:22 Lactic Acid 13.1 H* Calcium 7.5 L Total Bilirubin 0.4 AST 38 H ALT 19 Alkaline Phosphatase 77 Total Creatine Kinase 84 C-Reactive Protein 1.2 H Total Protein 6.0 L Albumin 3.4 L Lipase 450 H
[2024-01-08] MEDS: EPOETIN ALFA-EPBX 10,000 UNITS/ML VIAL 10000 UNITS IV PUSH (12:03)
[2024-01-08] MEDS: SODIUM CHLORIDE 0.9% IV 1,000 ML 999 ML IV CONT (12:04)
--- NOTE | 2024-01-08 12:22 | P.PNGS_ITS ---
Progress Note: A&P Assessment and Plan (1) Septic shock: Code(s): A41.9 - Sepsis, unspecified organism; R65.21 - Severe sepsis with septic shock Status: Acute Assessment and Plan: The patient likely has urosepsis. It seems unlikely that her initial source for sepsis would be ischemic/necrotic bowel. On her initial CT scan of the abdomen and pelvis, her bowel was unremarkable and there were no findings of free intraperitoneal air. WBC and lactic acid trending down with current treatment. Continue aggressive supportive management and interventions as per the regulatory administrator. She remains critically ill and would not be a surgical candidate for surgical exploration given her overall acute illness, but we will continue to follow along for any changes. (2) Acute respiratory failure: Code(s): J96.00 - Acute respiratory failure, unspecified whether with hypoxia or hypercapnia Status: Acute Assessment and Plan: Patient intubated and sedated in the ICU. Management per Concrete Grinder Operator. (3) Acute on chronic kidney failure: Code(s): N17.9 - Acute kidney failure, unspecified; N18.9 - Chronic kidney disease, unspecified Status: Acute Assessment and Plan: Multifactorial and undergoing hemodialysis again today. Nephrology following. (4) Urinary tract infection: Code(s): N39.0 - Urinary tract infection, site not specified Status: Acute Assessment and Plan: Continue IV antibiotics. Plan I have discussed the patient's case and plan of care with Dr. Noland. Subjective Subjective Date/Time Seen: 01/08/24 12:22 Interval history: Patient seen in ICU while on hemodialysis. Chart reviewed. She is a 63-year-old female brought into the ED for decreased mental status and lethargy. Workup showed septic shock, acute respiratory failure, UTI, acute renal denilson lure. She is now intubated in the ICU. No family at the bedside. She is currently off vasopressors. White blood cell count down to 13,000 today from 15,000 yesterday. Lactic acid peaked at 20.5 yesterday and down to 5.2 this morning. Exam Const: General: ill appearing Orientation/consciousness: patient obtunded (Intubated and sedated) GI: Inspection: non-distended GI Palp: Yes Soft to palpation, No Tenderness to palpation present (GI) (No grimacing with palpation) and No Guarding due to palpation present (GI) Auscultation: Hypoactive bowel sounds present Other: Exam limited as patient is intubated and sedated. Objective Data Vital Signs Vital Signs: Vital Signs - 24 hr 01/07/24 12:36 01/07/24 13:47 01/07/24 14:27 Temperature Pulse Rate 68 74 Respiratory Rate 26 H 24 H Blood Pressure 159/66 H Pulse Oximetry 96 100 Oxygen Delivery Room Air Fraction of Inspired Oxygen 01/07/24 14:45 01/07/24 12:54 01/07/24 13:00 Temperature Pulse Rate 85 86 81 Respiratory Rate 28 H 13 16 Blood Pressure Pulse Oximetry Oxygen Delivery Fraction of Inspired Oxygen 01/07/24 13:45 01/07/24 13:51 01/07/24 14:00 Temperature Pulse Rate 69 68 75 Respiratory Rate 17 15 17 Blood Pressure 127/47 L Pulse Oximetry 100 100 Oxygen Delivery Fraction of Inspired Oxygen 01/07/24 14:16 01/07/24 14:17 01/07/24 15:19 Temperature Pulse Rate 105 H Respiratory Rate Blood Pressure 140/55 L Pulse Oximetry 100 100 100 Oxygen Delivery Mechanical Ventilation Fraction of Inspired Oxygen 24 01/07/24 15:27 01/07/24 16:09 01/07/24 16:22 Temperature Pulse Rate 71 83 91 Respiratory Rate 22 H 26 H 24 H Blood Pressure 120/50 L Pulse Oximetry 100 Oxygen Delivery Fraction of Inspired Oxygen 01/07/24 16:52 01/07/24 15:15 01/07/24 17:00 Temperature Pulse Rate 81 72 79 Respiratory Rate 22 H 21 H 22 H Blood Pressure 137/41 L 121/50 L Pulse Oximetry 100 100 Oxygen Delivery Fraction of Inspired Oxygen 01/07/24 17:45 01/07/24 18:58 01/07/24 19:03 Temperature 90.6 F L Pulse Rate 69 61 Respiratory Rate 28 H 28 H Blood Pressure Pulse Oximetry Oxygen Delivery Fraction of Inspired Oxygen 01/07/24 19:26 01/07/24 19:27 01/07/24 18:00 Temperature 88 F L Pulse Rate 75 75 69 Respiratory Rate 29 H 30 H 28 H Blood Pressure 91/46 L Pulse Oximetry 100 Oxygen Delivery Fraction of Inspired Oxygen 01/07/24 19:18 01/07/24 19:33 01/07/24 18:00 Temperature 90.8 F L 91.2 F L Pulse Rate 69 Respiratory Rate Blood Pressure Pulse Oximetry Oxygen Delivery Fraction of Inspired Oxygen 01/07/24 18:00 01/07/24 18:00 01/07/24 18:50 Temperature Pulse Rate 68 Respiratory Rate Blood Pressure 89/47 L Pulse Oximetry 100 Oxygen Delivery Mechanical Ventilation Fraction of Inspired Oxygen 50 50 01/07/24 19:50 01/07/24 19:48 01/07/24 17:55 Temperature 92.4 F L Pulse Rate 75 73 Respiratory Rate Blood Pressure 85/51 L Pulse Oximetry 100 Oxygen Delivery Mechanical Ventilation Fraction of Inspired Oxygen 24 01/07/24 18:15 01/07/24 18:30 01/07/24 18:45 Temperature Pulse Rate 65 60 61 Respiratory Rate 28 H 28 H 28 H Blood Pressure 86/41 L 104/50 L Pulse Oximetry 100 100 100 Oxygen Delivery Fraction of Inspired Oxygen 01/07/24 18:50 01/07/24 19:09 01/07/24 19:00 Temperature Pulse Rate 64 67 Respiratory Rate 28 H Blood Pressure 89/47 L 87/40 L Pulse Oximetry 100 Oxygen Delivery Fraction of Inspired Oxygen 50 01/07/24 19:00 01/07/24 20:00 01/07/24 20:15 Temperature 88.0 F L Pulse Rate 64 73 75 Respiratory Rate 25 H Blood Pressure 104/50 L 90/52 L 109/51 L Pulse Oximetry 100 Oxygen Delivery Fraction of Inspired Oxygen 01/07/24 20:30 01/07/24 20:45 01/07/24 21:15 Temperature Pulse Rate 73 75 81 Respiratory Rate Blood Pressure 82/52 L 110/50 L 105/56 L Pulse Oximetry Oxygen Delivery Fraction of Inspired Oxygen 01/07/24 19:15 01/07/24 19:30 01/07/24 19:45 Temperature Pulse Rate 70 78 98 Respiratory Rate Blood Pressure 89/47 L 95/49 L 90/50 L Pulse Oximetry Oxygen Delivery Fraction of Inspired Oxygen 01/07/24 20:05 01/07/24 20:28 01/07/24 20:33 Temperature Pulse Rate 73 73 73 Respiratory Rate 32 H Blood Pressure 88/49 L 82/52 L Pulse Oximetry Oxygen Delivery Fraction of Inspired Oxygen 01/07/24 20:15 01/07/24 21:00 01/07/24 20:45 Temperature Pulse Rate 75 73 76 Respiratory Rate Blood Pressure 109/51 L 102/48 L 98/50 L Pulse Oximetry Oxygen Delivery Fraction of Inspired Oxygen 01/07/24 20:10 01/07/24 21:00 01/07/24 21:35 Temperature Pulse Rate 73 76 87 Respiratory Rate Blood Pressure 102/48 L 140/51 L Pulse Oximetry 100 Oxygen Delivery Mechanical Ventilation Fraction of Inspired Oxygen 50 01/07/24 20:28 01/07/24 21:36 01/07/24 21:37 Temperature Pulse Rate 73 84 84 Respiratory Rate 32 H 29 H 29 H Blood Pressure Pulse Oximetry Oxygen Delivery Fraction of Inspired Oxygen 01/07/24 21:30 01/07/24 22:00 01/07/24 22:15 Temperature Pulse Rate 84 89 89 Respiratory Rate Blood Pressure 140/51 L 104/57 L 93/50 L Pulse Oximetry Oxygen Delivery Fraction of Inspired Oxygen 01/07/24 21:45 01/07/24 21:50 01/07/24 20:00 Temperature Pulse Rate 94 91 73 Respiratory Rate Blood Pressure 114/54 L 114/54 L Pulse Oximetry Oxygen Delivery Fraction of Inspired Oxygen 01/07/24 20:03 01/07/24 20:33 01/07/24 21:03 Temperature 92.9 F L 94.0 F L 95.2 F L Pulse Rate Respiratory Rate Blood Pressure Pulse Oximetry Oxygen Delivery Fraction of Inspired Oxygen 01/07/24 21:33 01/07/24 22:01 01/07/24 22:00 Temperature 96.3 F L 97.2 F L Pulse Rate 88 Respiratory Rate Blood Pressure 104/51 L Pulse Oximetry Oxygen Delivery Fraction of Inspired Oxygen 01/07/24 20:00 01/07/24 20:00 01/07/24 20:00 Temperature 92.7 F L Pulse Rate 74 Respiratory Rate 32 H Blood Pressure 90/52 L Pulse Oximetry 100 100 Oxygen Delivery Mechanical Ventilation Fraction of Inspired Oxygen 50 50 01/07/24 22:00 01/07/24 22:00 01/07/24 22:00 Temperature Pulse Rate 90 90 90 Respiratory Rate 26 H 26 H Blood Pressure Pulse Oximetry Oxygen Delivery Fraction of Inspired Oxygen 01/07/24 22:26 01/07/24 22:30 01/07/24 22:00 Temperature 97.6 F 97.1 F L Pulse Rate 87 88 90 Respiratory Rate 24 H 26 H Blood Pressure 109/48 L 107/46 L 104/51 L Pulse Oximetry 100 100 Oxygen Delivery Fraction of Inspired Oxygen 01/07/24 23:03 01/08/24 00:00 01/08/24 00:53 Temperature Pulse Rate 95 96 94 Respiratory Rate Blood Pressure 114/51 L 119/51 L Pulse Oximetry 100 Oxygen Delivery Mechanical Ventilation Fraction of Inspired Oxygen 30 01/08/24 00:00 01/08/24 00:00 01/08/24 01:05 Temperature Pulse Rate 96 96 101 H Respiratory Rate 30 H 30 H Blood Pressure 141/54 H Pulse Oximetry Oxygen Delivery Fraction of Inspired Oxygen 01/08/24 01:20 01/08/24 01:33 01/08/24 00:00 Temperature Pulse Rate 92 91 Respiratory Rate Blood Pressure 125/55 L 126/58 L Pulse Oximetry 100 Oxygen Delivery Mechanical Ventilation Fraction of Inspired Oxygen 30 01/08/24 00:00 01/08/24 01:45 01/08/24 00:00 Temperature Pulse Rate 90 97 Respiratory Rate Blood Pressure 126/54 L Pulse Oximetry Oxygen Delivery Fraction of Inspired Oxygen 30 01/08/24 00:00 01/08/24 02:00 01/08/24 02:00 Temperature 97.0 F L Pulse Rate 97 89 89 Respiratory Rate 28 H 30 H Blood Pressure 114/51 L 133/50 L Pulse Oximetry 100 Oxygen Delivery Fraction of Inspired Oxygen 01/08/24 02:00 01/08/24 02:30 01/08/24 02:34 Temperature 96.9 F L Pulse Rate 89 87 88 Respiratory Rate 30 H 24 H Blood Pressure 120/49 L 119/48 L Pulse Oximetry 100 Oxygen Delivery Fraction of Inspired Oxygen 01/08/24 02:00 01/08/24 02:00 01/08/24 02:45 Temperature 96.8 F L 96.9 F L Pulse Rate 90 90 86 Respiratory Rate 30 H 24 H Blood Pressure 133/50 L 123/50 L Pulse Oximetry 100 100 Oxygen Delivery Fraction of Inspired Oxygen 01/08/24 02:46 01/08/24 03:06 01/08/24 03:17 Temperature Pulse Rate 86 85 83 Respiratory Rate Blood Pressure 123/50 L 114/46 L 108/47 L Pulse Oximetry Oxygen Delivery Fraction of Inspired Oxygen 01/08/24 03:45 01/08/24 04:00 01/08/24 04:00 Temperature 97.0 F L 97.0 F L Pulse Rate 83 83 83 Respiratory Rate 24 H 24 H 24 H Blood Pressure 105/46 L 112/50 L Pulse Oximetry 100 100 Oxygen Delivery Fraction of Inspired Oxygen 01/08/24 04:00 01/08/24 04:00 01/08/24 04:45 Temperature 97.2 F L Pulse Rate 83 83 84 Respiratory Rate 24 H 24 H Blood Pressure 112/50 L 118/50 L Pulse Oximetry 100 Oxygen Delivery Fraction of Inspired Oxygen 01/08/24 04:00 01/08/24 04:00 01/08/24 04:00 Temperature Pulse Rate 82 Respiratory Rate Blood Pressure Pulse Oximetry 100 Oxygen Delivery Mechanical Ventilation Fraction of Inspired Oxygen 25 25 01/08/24 05:20 01/08/24 01:55 01/08/24 05:01 Temperature 97.2 F L Pulse Rate 84 87 86 Respiratory Rate 24 H Blood Pressure 125/49 L Pulse Oximetry 100 100 100 Oxygen Delivery Mechanical Ventilation Mechanical Ventilation Fraction of Inspired Oxygen 25 21 01/08/24 06:00 01/08/24 06:00 01/08/24 06:01 Temperature 97.1 F L Pulse Rate 83 83 83 Respiratory Rate 24 H 24 H Blood Pressure 111/47 L Pulse Oximetry 100 Oxygen Delivery Fraction of Inspired Oxygen 01/08/24 06:01 01/08/24 06:01 01/08/24 08:00 Temperature Pulse Rate 83 83 82 Respiratory Rate 24 H 24 H Blood Pressure 111/47 L Pulse Oximetry Oxygen Delivery Fraction of Inspired Oxygen 01/08/24 08:00 01/08/24 08:00 01/08/24 08:01 Temperature Pulse Rate 82 82 81 Respiratory Rate 24 H Blood Pressure 123/48 L Pulse Oximetry 100 Oxygen Delivery Mechanical Ventilation Fraction of Inspired Oxygen 21 01/08/24 08:00 01/08/24 08:36 01/08/24 08:36 Temperature 97.1 F L 97.2 F L Pulse Rate 84 83 Respiratory Rate 24 H 25 H Blood Pressure 117/47 L 114/48 L Pulse Oximetry 100 100 Oxygen Delivery Fraction of Inspired Oxygen 21 01/08/24 08:48 01/08/24 12:00 01/08/24 09:00 Temperature Pulse Rate 84 79 88 Respiratory Rate Blood Pressure 134/54 L 128/51 L 144/49 H Pulse Oximetry Oxygen Delivery Fraction of Inspired Oxygen 01/08/24 09:15 01/08/24 09:30 01/08/24 09:45 Temperature Pulse Rate 87 83 82 Respiratory Rate Blood Pressure 150/53 H 127/50 L 117/54 L Pulse Oximetry Oxygen Delivery Fraction of Inspired Oxygen 01/08/24 10:00 01/08/24 10:15 01/08/24 10:30 Temperature Pulse Rate 81 82 81 Respiratory Rate Blood Pressure 107/49 L 108/59 L 116/52 L Pulse Oximetry Oxygen Delivery Fraction of Inspired Oxygen 01/08/24 10:45 01/08/24 10:48 01/08/24 11:00 Temperature Pulse Rate 80 78 78 Respiratory Rate Blood Pressure 115/51 L 115/51 L 125/51 L Pulse Oximetry Oxygen Delivery Fraction of Inspired Oxygen 01/08/24 11:15 01/08/24 11:30 01/08/24 11:45 Temperature Pulse Rate 79 78 80 Respiratory Rate Blood Pressure 127/63 133/52 L 136/54 L Pulse Oximetry Oxygen Delivery Fraction of Inspired Oxygen 01/08/24 08:00 01/08/24 08:00 01/08/24 10:00 Temperature Pulse Rate 81 82 Respiratory Rate 24 H Blood Pressure Pulse Oximetry Oxygen Delivery Fraction of Inspired Oxygen 21 01/08/24 10:00 01/08/24 10:00 01/08/24 10:00 Temperature 97.9 F Pulse Rate 82 82 80 Respiratory Rate 24 H 24 H Blood Pressure 107/49 L 107/47 L Pulse Oximetry 100 Oxygen Delivery Fraction of Inspired Oxygen 01/08/24 10:00 01/08/24 08:00 01/08/24 11:47 Temperature Pulse Rate 82 79 Respiratory Rate Blood Pressure Pulse Oximetry 100 100 Oxygen Delivery Mechanical Ventilation Mechanical Ventilation Fraction of Inspired Oxygen 21 21 01/08/24 12:00 01/08/24 12:00 01/08/24 12:00 Temperature Pulse Rate 82 82 82 Respiratory Rate 24 H 24 H Blood Pressure 128/51 L Pulse Oximetry Oxygen Delivery Fraction of Inspired Oxygen Intake/Output Intake/Output: Intake & Output 01/05/24 01/06/24 01/07/24 01/08/24 23:59 23:59 23:59 23:59 Intake Total 2289.0 1628.8 Output Total 0 80 Balance 2289.0 1548.8 Meds/Results Medications: Active Medications Generic Name Dose Route Start Last Admin Trade Name Freq PRN Reason Stop Dose Admin Dextrose 12.5 gm 01/07/24 13:18 Dextrose 50% 25 Gm/50 Ml Syringe IV PUSH PRN PRN Hypoglycemia Protocol Epoetin Dane-epbx 10,000 units 01/08/24 20:01 01/08/24 12:03 Epoetin Dane-Epbx 10,000 Units/Ml Vial IV PUSH 01/08/24 20:02 10,000 units ONCE ONE Administration Glucagon 1 mg 01/07/24 13:18 Glucagon For Inj 1 Mg Vial IM PRN PRN Hypoglycemia Protocol Glucose 15 gm 01/07/24 13:18 Glucose Oral Gel 15 Gm Of Glucse In 37.5 Gm Tube PO PRN PRN Hypoglycemia Protocol Heparin Sodium (Porcine) 5,000 units 01/07/24 21:00 01/08/24 08:39 Heparin Sodium 5,000 Units/Ml Vial SUB-Q 5,000 units Q12HR CARMELA Administration Hydrocortisone Sodium Succinate 100 mg 01/07/24 22:00 01/08/24 06:26 Hydrocortisone Sodium Succinate 100 Mg/2 Ml Vial IV PUSH 100 mg Q8HR CARMELA Administration Dextrose 1,000 mls @ 100 mls/hr 01/07/24 13:18 Dextrose 5% 1,000 Ml IVPB PRN PRN Hypoglycemia Protocol Albumin Human 50 mls @ 999 mls/hr 01/07/24 17:11 Albutein IVPB 02/06/24 17:10 Q10M PRN HYPOTENSION Fentanyl Citrate 2,500 mcg in 250 mls @ 5 mls/hr 01/07/24 18:55 01/08/24 12:00 Fentanyl 2,500 Mcg/Ns 250 Ml IV CONT 50 mcg/hr .Q50H CARMELA 5 mls/hr Titration Protocol 50 MCG/HR Midazolam HCl 100 mg in 100 mls @ 2 mls/hr 01/07/24 18:55 01/08/24 12:00 Versed 100 Mg/Ns 100 Ml IV CONT 2 mg/hr .Q50H CARMELA 2 mls/hr Titration Protocol 2 MG/HR Sodium Bicarbonate 150 meq/ 1,100 mls @ 100 mls/hr 01/07/24 19:00 01/08/24 06:27 Sterile Water IV CONT 100 mls/hr .Q11H CARMELA Administration Levetiracetam 500 mg in 100 mls @ 400 mls/hr 01/07/24 21:00 01/07/24 23:04 Keppra Iv IVPB Infused Q24H CARMELA Infusion Norepinephrine Bitartrate 8 mg in 250 mls @ 0 mls/hr 01/07/24 19:15 01/08/24 12:00 Levophed 8 Mg/D5w 250 Ml IV CONT 0 mcg/min .Q0M CARMELA 0 mls/hr Titration Protocol 0 MCG/MIN Ceftriaxone Sodium 2 gm in 100 mls @ 200 mls/hr 01/08/24 12:30 Rocephin 2 Gm/Ns 100 Ml IVPB DAILY CARMELA Insulin Aspart 3 - 6 units 01/07/24 18:00 01/08/24 06:58 Insulin Aspart (*Bkc) 100 Units/Ml SUB-Q Not Given Q6HR CARMELA Protocol Multi-Ingred Cream/Lotion/Oil/Oint 1 applic 01/07/24 21:00 01/08/24 09:00 Mineral Oil/White Petrolatum Ointment EACH EYE 1 applic Q12HR CARMELA Administration Pantoprazole Sodium 40 mg 01/07/24 21:00 01/07/24 22:44 Pantoprazole Sodium Iv 40 Mg Vial IV PUSH 40 mg Q12HR CARMELA Administration Sodium Bicarbonate 1,300 mg 01/08/24 09:00 01/08/24 08:39 Sodium Bicarbonate Tab 650 Mg Tablet PO 01/10/24 08:59 1,300 mg BID CARMELA Administration Radiology Results: ITS Impressions Head CT 01/07/24 13:41 IMPRESSION: 1. No acute intracranial process. 2. 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 3. Additional more diffuse likely age-related mild to moderate diffuse volume loss and mild scattered white matter hypoattenuation consistent with chronic small vessel ischemic disease. Abdomen/Pelvis CT 01/07/24 16:52 IMPRESSION: No acute abdominopelvic process. Specifically, there is no CT evidence of bowel obstruction. No definite evidence of renal injury, noting that low-grade renal injury as can be difficult to detect without contrast. Chest X-Ray 01/08/24 06:29 Impression: Clear lungs. Support tubes, as above. Renal Ultrasound 01/08/24 10:47 IMPRESSION: 1. Normal kidney sizes. No hydronephrosis. Labs Labs: Laboratory Results - last 24 hr 10/09/2401/07/24 01/07/24 12:22 12:36 12:38 WBC 12.3 H RBC 2.81 L Hgb 8.1 L Hct 27.3 L MCV 97.2 MCH 28.8 MCHC 29.7 L RDW 12.5 Plt Count 416 H MPV 10.8 H Immature Gran % (Auto) 1.2 H Neut % (Auto) 79.7 H Lymph % (Auto) 17.[address] % (Auto) 1.4 L Eos % (Auto) 0.0 Baso % (Auto) 0.5 Lymph # (Auto) 2.11 [place] # (Auto) 0.2 Eos # (Auto) 0.0 Baso # (Auto) 0.1 Abs Immat Gran (auto) 0.15 H Absolute Neuts (auto) 9.8 H Absolute Nucleated RBC 0.000 Nucleated RBC % 0.0 Platelet Estimate Increased Ovalocytes 1+ Schistocytes None seen PT 17.1 H INR 1.4 APTT 31.6 Fibrinogen D-Dimer Puncture Site ABG pH ABG pCO2 ABG pO2 ABG PO2/FiO2 Ratio ABG HCO3 ABG O2 Saturation ABG O2 Content ABG Base Excess A-a Gradient Oxyhemoglobin Carboxyhemoglobin Methemoglobin Reduced Hemoglobin Total Hemoglobin O2 Delivery Device O2 Liters/Min Minute Volume Vent Rate Vent Mode FiO2 Tidal Volume PEEP Peak Inspir Pressure Pressure Support Sodium 136 L Potassium 5.7 H Chloride 99 Carbon Dioxide < 5 L Anion Gap BUN 70 H D Creatinine 8.90 H Estim Creat Clear Calc 6 Estimated GFR 4 L Glucose 129 H POC Capillary Glucose 130 H Hemoglobin A1c 7.4 H Lactic Acid Calcium 8.6 Phosphorus Magnesium Iron 92 TIBC 260 L % Saturation 35 Ferritin 157.00 Total Bilirubin 0.3 AST 22 ALT 20 Alkaline Phosphatase 81 Ammonia Total Creatine Kinase Troponin I < 0.012 C-Reactive Protein Total Protein 8.0 Albumin 4.7 Lipase Vitamin B12 Folate Beta-Hydroxybutyrate/Acetoacetate Procalcitonin 0.2 TSH (Reflex) 1.500 Urine Color Urine Appearance Urine pH Ur Specific [place] Urine Protein Urine Glucose (UA) Urine Ketones Ur Blood (Man) Urine Nitrate Urine Bilirubin Urine Urobilinogen Add Ur Microanalysis Leukocyte Esterase Rfl Urine RBC Urine WBC Ur Squamous Epith Cells Urine Bacteria Urine Casts Nasal MRSA (PCR) Salicylates Urine Opiates Screen Urine Methadone Screen Acetaminophen Ur Barbiturates Screen Ur Phencyclidine Scrn Ur Amphetamine Screen U Benzodiazepines Scrn Urine Cocaine Screen U Cannabinoids Screen Hepatitis A IgM Ab Negative Hep Bs Antigen Negative Hep Bs Antibody Negative Hep B Core IgM Ab Negative Hepatitis C Ab Screen Negative Influenza A (RT-PCR) Influenza B (RT-PCR) SARS-CoV-2 RNA (RT-PCR) Blood Type Antibody Screen Crossmatch 01/07/24 01/07/24 01/07/24 12:40 13:09 14:13 WBC RBC Hgb Hct MCV MCH MCHC RDW Plt Count MPV Immature Gran % (Auto) Neut % (Auto) Lymph % (Auto) [place] % (Auto) Eos % (Auto) Baso % (Auto) Lymph # (Auto) [place] # (Auto) Eos # (Auto) Baso # (Auto) Abs Immat Gran (auto) Absolute Neuts (auto) Absolute Nucleated RBC Nucleated RBC % Platelet Estimate Ovalocytes Schistocytes PT INR APTT Fibrinogen D-Dimer Puncture Site Left brachial ABG pH 6.940 L* ABG pCO2 15.8 L* ABG pO2 135.0 H ABG PO2/FiO2 Ratio 6.43 ABG HCO3 3.3 L ABG O2 Saturation 96.7 ABG O2 Content 12.6 L ABG Base Excess -27.0 A-a Gradient < 0.0 Oxyhemoglobin 97.3 Carboxyhemoglobin 0.2 Methemoglobin 0.4 Reduced Hemoglobin 2.1 Total Hemoglobin 9.0 L O2 Delivery Device Room air O2 Liters/Min Not Reportable Minute Volume Vent Rate Vent Mode FiO2 21 Tidal Volume PEEP Peak Inspir Pressure Pressure Support Sodium Potassium Chloride Carbon Dioxide Anion Gap BUN Creatinine Estim Creat Clear Calc Estimated GFR Glucose POC Capillary Glucose 213 H Hemoglobin A1c Lactic Acid Calcium Phosphorus Magnesium Iron TIBC % Saturation Ferritin Total Bilirubin AST ALT Alkaline Phosphatase Ammonia Total Creatine Kinase Troponin I C-Reactive Protein Total Protein Albumin Lipase Vitamin B12 Folate Beta-Hydroxybutyrate/Acetoacetate Procalcitonin TSH (Reflex) Urine Color Yellow Urine Appearance Turbid H Urine pH 7.5 Ur Specific [place] 1.011 Urine Protein 2+ H Urine Glucose (UA) Negative Urine Ketones Trace H Ur Blood (Man) Negative Urine Nitrate Negative Urine Bilirubin Negative Urine Urobilinogen 0.2 Add Ur Microanalysis Reviewed Leukocyte Esterase Rfl 3+ H Urine RBC 0-2 Urine WBC >100 H Ur Squamous Epith Cells None seen Urine Bacteria 4+ Urine Casts 6-10 Nasal MRSA (PCR) Salicylates Urine Opiates Screen Negative Urine Methadone Screen Negative Acetaminophen Ur Barbiturates Screen Negative Ur Phencyclidine Scrn Negative Ur Amphetamine Screen Negative U Benzodiazepines Scrn Negative Urine Cocaine Screen Negative U Cannabinoids Screen Negative Hepatitis A IgM Ab Hep Bs Antigen Hep Bs Antibody Hep B Core IgM Ab Hepatitis C Ab Screen Influenza A (RT-PCR) Influenza B (RT-PCR) SARS-CoV-2 RNA (RT-PCR) Blood Type Antibody Screen Crossmatch 01/07/24 01/07/24 01/07/24 15:41 17:04 18:42 WBC RBC Hgb Hct MCV MCH MCHC RDW Plt Count MPV Immature Gran % (Auto) Neut % (Auto) Lymph % (Auto) [place] % (Auto) Eos % (Auto) Baso % (Auto) Lymph # (Auto) [place] # (Auto) Eos # (Auto) Baso # (Auto) Abs Immat Gran (auto) Absolute Neuts (auto) Absolute Nucleated RBC Nucleated RBC % Platelet Estimate Ovalocytes Schistocytes PT INR APTT Fibrinogen D-Dimer Puncture Site ABG pH ABG pCO2 ABG pO2 ABG PO2/FiO2 Ratio ABG HCO3 ABG O2 Saturation ABG O2 Content ABG Base Excess A-a Gradient Oxyhemoglobin Carboxyhemoglobin Methemoglobin Reduced Hemoglobin Total Hemoglobin O2 Delivery Device O2 Liters/Min Minute Volume Vent Rate Vent Mode FiO2 Tidal Volume PEEP Peak Inspir Pressure Pressure Support Sodium 140 Potassium 5.0 Chloride 101 Carbon Dioxide < 5 L Anion Gap BUN 70 H Creatinine 9.30 H Estim Creat Clear Calc 6 Estimated GFR 4 L Glucose 163 H POC Capillary Glucose 144 H Hemoglobin A1c Lactic Acid 15.8 H* Calcium 8.5 Phosphorus Magnesium Iron TIBC % Saturation Ferritin Total Bilirubin AST ALT Alkaline Phosphatase Ammonia Total Creatine Kinase Troponin I C-Reactive Protein Total Protein Albumin Lipase Vitamin B12 311.0 Folate 18.1 Beta-Hydroxybutyrate/Acetoacetate 7.59 H Procalcitonin TSH (Reflex) Urine Color Urine Appearance Urine pH Ur Specific [place] Urine Protein Urine Glucose (UA) Urine Ketones Ur Blood (Man) Urine Nitrate Urine Bilirubin Urine Urobilinogen Add Ur Microanalysis Leukocyte Esterase Rfl Urine RBC Urine WBC Ur Squamous Epith Cells Urine Bacteria Urine Casts Nasal MRSA (PCR) Salicylates < 1.0 L Urine Opiates Screen Urine Methadone Screen Acetaminophen < 10 L Ur Barbiturates Screen Ur Phencyclidine Scrn Ur Amphetamine Screen U Benzodiazepines Scrn Urine Cocaine Screen U Cannabinoids Screen Hepatitis A IgM Ab Hep Bs Antigen Hep Bs Antibody Hep B Core IgM Ab Hepatitis C Ab Screen Influenza A (RT-PCR) Influenza B (RT-PCR) SARS-CoV-2 RNA (RT-PCR) Blood Type Antibody Screen Crossmatch 01/07/24 01/07/24 01/07/24 18:47 19:05 19:36 WBC RBC Hgb Hct MCV MCH MCHC RDW Plt Count MPV Immature Gran % (Auto) Neut % (Auto) Lymph % (Auto) [place] % (Auto) Eos % (Auto) Baso % (Auto) Lymph # (Auto) [place] # (Auto) Eos # (Auto) Baso # (Auto) Abs Immat Gran (auto) Absolute Neuts (auto) Absolute Nucleated RBC Nucleated RBC % Platelet Estimate Ovalocytes Schistocytes PT INR APTT Fibrinogen D-Dimer Puncture Site Right brachial ABG pH 6.712 L* ABG pCO2 13.8 L* ABG pO2 302.2 H ABG PO2/FiO2 Ratio 6.04 ABG HCO3 1.7 L ABG O2 Saturation 99.0 ABG O2 Content 11.2 L ABG Base Excess -32.0 A-a Gradient 38.8 Oxyhemoglobin 98.3 Carboxyhemoglobin 0.6 Methemoglobin 0.6 Reduced Hemoglobin 0.5 Total Hemoglobin 7.5 L* O2 Delivery Device Ventilator O2 Liters/Min Not Reportable Minute Volume Not Reportable Vent Rate 24 Vent Mode Cmv FiO2 50 Tidal Volume 450 PEEP 5 Peak Inspir Pressure Not Reportable Pressure Support Not Reportable Sodium Potassium Chloride Carbon Dioxide Anion Gap BUN Creatinine Estim Creat Clear Calc Estimated GFR Glucose POC Capillary Glucose Hemoglobin A1c Lactic Acid 20.5 H* Calcium Phosphorus Magnesium Iron TIBC % Saturation Ferritin Total Bilirubin AST ALT Alkaline Phosphatase Ammonia Total Creatine Kinase Troponin I C-Reactive Protein Total Protein Albumin Lipase Vitamin B12 Folate Beta-Hydroxybutyrate/Acetoacetate Procalcitonin TSH (Reflex) Urine Color Urine Appearance Urine pH Ur Specific [place] Urine Protein Urine Glucose (UA) Urine Ketones Ur Blood (Man) Urine Nitrate Urine Bilirubin Urine Urobilinogen Add Ur Microanalysis Leukocyte Esterase Rfl Urine RBC Urine WBC Ur Squamous Epith Cells Urine Bacteria Urine Casts Nasal MRSA (PCR) Not detected Salicylates Urine Opiates Screen Urine Methadone Screen Acetaminophen Ur Barbiturates Screen Ur Phencyclidine Scrn Ur Amphetamine Screen U Benzodiazepines Scrn Urine Cocaine Screen U Cannabinoids Screen Hepatitis A IgM Ab Hep Bs Antigen Hep Bs Antibody Hep B Core IgM Ab Hepatitis C Ab Screen Influenza A (RT-PCR) Negative Influenza B (RT-PCR) Negative SARS-CoV-2 RNA (RT-PCR) Negative Blood Type Antibody Screen Crossmatch 01/07/24 01/07/24 01/07/24 22:41 22:41 22:41 WBC 15.3 H RBC 2.37 L Hgb 6.8 L* Hct 21.3 L MCV 89.9 D MCH 28.7 MCHC 31.9 L RDW 12.7 Plt Count 338 339 MPV 10.8 H Immature Gran % (Auto) Neut % (Auto) Lymph % (Auto) [place] % (Auto) Eos % (Auto) Baso % (Auto) Lymph # (Auto) [place] # (Auto) Eos # (Auto) Baso # (Auto) Abs Immat Gran (auto) Absolute Neuts (auto) Absolute Nucleated RBC Nucleated RBC % Platelet Estimate Ovalocytes Schistocytes PT 16.4 H INR 1.3 APTT 31.6 Fibrinogen 313 D-Dimer 1.09 H Puncture Site ABG pH ABG pCO2 ABG pO2 ABG PO2/FiO2 Ratio ABG HCO3 ABG O2 Saturation ABG O2 Content ABG Base Excess A-a Gradient Oxyhemoglobin Carboxyhemoglobin Methemoglobin Reduced Hemoglobin Total Hemoglobin O2 Delivery Device O2 Liters/Min Minute Volume Vent Rate Vent Mode FiO2 Tidal Volume PEEP Peak Inspir Pressure Pressure Support Sodium 140 Potassium 3.3 L Chloride 94 L Carbon Dioxide 11 L Anion Gap 35 H BUN 23 H D Creatinine 2.70 H Estim Creat Clear Calc 19 Estimated GFR 18 L Glucose 112 H POC Capillary Glucose Hemoglobin A1c Lactic Acid 17.5 H* Calcium 7.7 L Phosphorus 3.3 Magnesium 1.7 1.7 Iron TIBC % Saturation Ferritin Total Bilirubin 0.3 AST 29 ALT 21 Alkaline Phosphatase 88 Ammonia Total Creatine Kinase Troponin I C-Reactive Protein Total Protein 7.0 Albumin 3.8 Lipase Vitamin B12 Folate Beta-Hydroxybutyrate/Acetoacetate Procalcitonin TSH (Reflex) Urine Color Urine Appearance Urine pH Ur Specific [place] Urine Protein Urine Glucose (UA) Urine Ketones Ur Blood (Man) Urine Nitrate Urine Bilirubin Urine Urobilinogen Add Ur Microanalysis Leukocyte Esterase Rfl Urine RBC Urine WBC Ur Squamous Epith Cells Urine Bacteria Urine Casts Nasal MRSA (PCR) Salicylates Urine Opiates Screen Urine Methadone Screen Acetaminophen Ur Barbiturates Screen Ur Phencyclidine Scrn Ur Amphetamine Screen U Benzodiazepines Scrn Urine Cocaine Screen U Cannabinoids Screen Hepatitis A IgM Ab Hep Bs Antigen Hep Bs Antibody Hep B Core IgM Ab Hepatitis C Ab Screen Influenza A (RT-PCR) Influenza B (RT-PCR) SARS-CoV-2 RNA (RT-PCR) Blood Type Antibody Screen Crossmatch 01/07/24 01/08/24 01/08/24 23:30 00:18 00:26 WBC RBC Hgb Hct MCV MCH MCHC RDW Plt Count MPV Immature Gran % (Auto) Neut % (Auto) Lymph % (Auto) [place] % (Auto) Eos % (Auto) Baso % (Auto) Lymph # (Auto) [place] # (Auto) Eos # (Auto) Baso # (Auto) Abs Immat Gran (auto) Absolute Neuts (auto) Absolute Nucleated RBC Nucleated RBC % Platelet Estimate Ovalocytes Schistocytes PT INR APTT Fibrinogen D-Dimer Puncture Site Right brachial ABG pH 7.266 L* ABG pCO2 17.9 L* ABG pO2 156.7 H ABG PO2/FiO2 Ratio 5.22 ABG HCO3 8.0 L ABG O2 Saturation 98.8 ABG O2 Content 10.4 L ABG Base Excess -17.3 A-a Gradient 36.2 Oxyhemoglobin 97.9 Carboxyhemoglobin Methemoglobin Reduced Hemoglobin Total Hemoglobin 7.3 L* O2 Delivery Device Ventilator O2 Liters/Min Not Reportable Minute Volume Not Reportable Vent Rate 24 Vent Mode Cmv FiO2 30 Tidal Volume 450 PEEP 5 Peak Inspir Pressure Not Reportable Pressure Support Not Reportable Sodium Potassium Chloride Carbon Dioxide Anion Gap BUN Creatinine Estim Creat Clear Calc Estimated GFR Glucose POC Capillary Glucose 110 H Hemoglobin A1c Lactic Acid Calcium Phosphorus Magnesium Iron TIBC % Saturation Ferritin Total Bilirubin AST ALT Alkaline Phosphatase Ammonia Total Creatine Kinase Troponin I C-Reactive Protein Total Protein Albumin Lipase Vitamin B12 Folate Beta-Hydroxybutyrate/Acetoacetate Procalcitonin TSH (Reflex) Urine Color Urine Appearance Urine pH Ur Specific [place] Urine Protein Urine Glucose (UA) Urine Ketones Ur Blood (Man) Urine Nitrate Urine Bilirubin Urine Urobilinogen Add Ur Microanalysis Leukocyte Esterase Rfl Urine RBC Urine WBC Ur Squamous Epith Cells Urine Bacteria Urine Casts Nasal MRSA (PCR) Salicylates Urine Opiates Screen Urine Methadone Screen Acetaminophen Ur Barbiturates Screen Ur Phencyclidine Scrn Ur Amphetamine Screen U Benzodiazepines Scrn Urine Cocaine Screen U Cannabinoids Screen Hepatitis A IgM Ab Hep Bs Antigen Hep Bs Antibody Hep B Core IgM Ab Hepatitis C Ab Screen Influenza A (RT-PCR) Influenza B (RT-PCR) SARS-CoV-2 RNA (RT-PCR) Blood Type O Positive Antibody Screen Negative Crossmatch See Detail 01/08/24 01/08/24 01/08/24 05:03 06:22 09:03 WBC 13.4 H RBC 2.59 L Hgb 7.7 L Hct 23.4 L MCV 90.3 MCH 29.7 MCHC 32.9 RDW 13.0 Plt Count 243 MPV 10.9 H Immature Gran % (Auto) 1.2 H Neut % (Auto) 85.4 H Lymph % (Auto) 8.[address] [place] % (Auto) 5.1 Eos % (Auto) 0.0 Baso % (Auto) 0.2 Lymph # (Auto) 1.09 [place] # (Auto) 0.7 H Eos # (Auto) 0.0 Baso # (Auto) 0.0 Abs Immat Gran (auto) 0.16 H Absolute Neuts (auto) 11.4 H Absolute Nucleated RBC 0.000 Nucleated RBC % 0.0 Platelet Estimate Ovalocytes Schistocytes PT 17.3 H INR 1.4 APTT 32.8 Fibrinogen D-Dimer Puncture Site Right brachial ABG pH 7.317 L ABG pCO2 17.6 L* ABG pO2 142.2 H ABG PO2/FiO2 Ratio 5.69 ABG HCO3 8.8 L ABG O2 Saturation 98.7 ABG O2 Content 11.4 L ABG Base Excess -15.6 A-a Gradient 15.2 Oxyhemoglobin 97.6 Carboxyhemoglobin 0.6 Methemoglobin 0.2 Reduced Hemoglobin 1.6 Total Hemoglobin 8.1 L O2 Delivery Device Ventilator O2 Liters/Min Not Reportable Minute Volume Not Reportable Vent Rate 24 Vent Mode Cmv FiO2 25 Tidal Volume 450 PEEP 5 Peak Inspir Pressure Not Reportable Pressure Support Not Reportable Sodium 141 Potassium 3.7 Chloride 91 L Carbon Dioxide 8 L Anion Gap 42 H BUN 28 H Creatinine 3.60 H Estim Creat Clear Calc 15 Estimated GFR 13 L Glucose 198 H POC Capillary Glucose Hemoglobin A1c Lactic Acid 13.1 H* Calcium 7.5 L Phosphorus Magnesium Iron TIBC % Saturation Ferritin Total Bilirubin 0.4 AST 38 H ALT 19 Alkaline Phosphatase 77 Ammonia < 9 L Total Creatine Kinase 84 Troponin I C-Reactive Protein 1.2 H Total Protein 6.0 L Albumin 3.4 L Lipase 450 H Vitamin B12 Folate Beta-Hydroxybutyrate/Acetoacetate Procalcitonin TSH (Reflex) Urine Color Urine Appearance Urine pH Ur Specific [place] Urine Protein Urine Glucose (UA) Urine Ketones Ur Blood (Man) Urine Nitrate Urine Bilirubin Urine Urobilinogen Add Ur Microanalysis Leukocyte Esterase Rfl Urine RBC Urine WBC Ur Squamous Epith Cells Urine Bacteria Urine Casts Nasal MRSA (PCR) Salicylates Urine Opiates Screen Urine Methadone Screen Acetaminophen Ur Barbiturates Screen Ur Phencyclidine Scrn Ur Amphetamine Screen U Benzodiazepines Scrn Urine Cocaine Screen U Cannabinoids Screen Hepatitis A IgM Ab Hep Bs Antigen Hep Bs Antibody Hep B Core IgM Ab Hepatitis C Ab Screen Influenza A (RT-PCR) Influenza B (RT-PCR) SARS-CoV-2 RNA (RT-PCR) Blood Type Antibody Screen Crossmatch 01/08/24 09:36 WBC RBC Hgb Hct MCV MCH MCHC RDW Plt Count MPV Immature Gran % (Auto) Neut % (Auto) Lymph % (Auto) [place] % (Auto) Eos % (Auto) Baso % (Auto) Lymph # (Auto) [place] # (Auto) Eos # (Auto) Baso # (Auto) Abs Immat Gran (auto) Absolute Neuts (auto) Absolute Nucleated RBC Nucleated RBC % Platelet Estimate Ovalocytes Schistocytes PT INR APTT Fibrinogen D-Dimer Puncture Site ABG pH ABG pCO2 ABG pO2 ABG PO2/FiO2 Ratio ABG HCO3 ABG O2 Saturation ABG O2 Content ABG Base Excess A-a Gradient Oxyhemoglobin Carboxyhemoglobin Methemoglobin Reduced Hemoglobin Total Hemoglobin O2 Delivery Device O2 Liters/Min Minute Volume Vent Rate Vent Mode FiO2 Tidal Volume PEEP Peak Inspir Pressure Pressure Support Sodium Potassium Chloride Carbon Dioxide Anion Gap BUN Creatinine Estim Creat Clear Calc Estimated GFR Glucose POC Capillary Glucose Hemoglobin A1c Lactic Acid 5.2 H* Calcium Phosphorus Magnesium Iron TIBC % Saturation Ferritin Total Bilirubin AST ALT Alkaline Phosphatase Ammonia Total Creatine Kinase Troponin I C-Reactive Protein Total Protein Albumin Lipase Vitamin B12 Folate Beta-Hydroxybutyrate/Acetoacetate Procalcitonin TSH (Reflex) Urine Color Urine Appearance Urine pH Ur Specific [place] Urine Protein Urine Glucose (UA) Urine Ketones Ur Blood (Man) Urine Nitrate Urine Bilirubin Urine Urobilinogen Add Ur Microanalysis Leukocyte Esterase Rfl Urine RBC Urine WBC Ur Squamous Epith Cells Urine Bacteria Urine Casts Nasal MRSA (PCR) Salicylates Urine Opiates Screen Urine Methadone Screen Acetaminophen Ur Barbiturates Screen Ur Phencyclidine Scrn Ur Amphetamine Screen U Benzodiazepines Scrn Urine Cocaine Screen U Cannabinoids Screen Hepatitis A IgM Ab Hep Bs Antigen Hep Bs Antibody Hep B Core IgM Ab Hepatitis C Ab Screen Influenza A (RT-PCR) Influenza B (RT-PCR) SARS-CoV-2 RNA (RT-PCR) Blood Type Antibody Screen Crossmatch
[2024-01-08] MEDS: cefTRIAXone 2 GM/NS 100 ML 2 GM/100 ML BAG IVPB (12:56)
[2024-01-08] MEDS: PANTOPRAZOLE SODIUM IV 40 MG VIAL IV PUSH ×2 (12:57→21:11)
[2024-01-08 13:01] LABS: Glucose Point of Care 125 mg/dl (65-105)
[2024-01-08 16:36] LABS: Glucose Point of Care 157 mg/dl (65-105)
[2024-01-08 20:54] LABS: Creatinine Urine 5.5 mg/dL; Total Protein Urine Random 85 mg/dL; Ur Ttl Prot Creatinine Ratio 15.45 mg/mg (0-0.20)
[2024-01-08 21:06] LABS: Creatinine Urine 6.1 mg/dL; Total Protein Urine Random 82 mg/dL
[2024-01-08 21:09] LABS: Sodium Urine Random 145 meq/L
[2024-01-08] MEDS: levETIRAcetam 500MG/NACL 100ML 500 MG/100 ML BAG 400 MG IVPB (21:10)
[2024-01-08 21:18] LABS: Urea Random Urine < 67 MG/DL
[2024-01-08 21:38] LABS: Eosinophil Urine None Seen % (None Seen); Urine Eos QC 2nd Tech Confirmed
[2024-01-09] VITALS (23 sets, daily range): BP systolic 113–169; BP diastolic 47–86; PULSE 88–114; RESP 17–24; TEMP 37–38.6; O2SAT 99–100
[2024-01-09] MEDS: INSULIN ASPART (*BKC) 100 UNITS/ML SUB-Q ×6 (00:10→21:00)
[2024-01-09 00:49] LABS: Glucose Point of Care 259 mg/dl (65-105)
[2024-01-09] MEDS: SODIUM BICARBONATE 8.4% 150 MEQ in WATER, STERILE FOR INJECTION 950 ML 100 MEQ IV CONT (03:01)
[2024-01-09 06:00] LABS: Alveolar/Arterial O2 Gradient 27.3 mmHg; Base Excess ABG -8.3 mEq/l (+/-2.0); Fractional Inspired Oxygen 21 %; HCO3 ABG 14.7 mEq/l (22.0-26.0); Oxygen Content ABG 11.3 %vol (16.0-22.0); Oxygen Saturation ABG 97.7 % (95.0-100.0); Oxyhemoglobin 96.2 % THb (90.0-100.0); PO2 ABG 95.8 mmHg (80.0-100.0); PO2 FiO2 Ratio Arterial Blood 4.56 %; Total Hemoglobin 8.2 g/dL (12.0-18.0); pH ABG 7.438 (7.350-7.450)
[2024-01-09 06:01] LABS: Device VENTILATOR; Modified Allen's Test Pass; PCO2 ABG 22.2 mmHg (35.0-45.0); Site Drawn LEFT BRACHIAL
[2024-01-09 06:02] LABS: Arterial Blood Gas PEEP 5 cmH2O; Arterial Blood Gas Tidal Volume 400 ml; Arterial Blood Gas Vent Mode CMV; Arterial Blood Gas Ventilator rate 24 /MIN
[2024-01-09] MEDS: HYDROCORTISONE SODIUM SUCCINATE 100 MG/2 ML VIAL IV PUSH ×2 (06:22→09:01)
[2024-01-09 06:23] LABS: Basophils Percent Auto 0.2 % (0.2-1.2); Hematocrit 22.7 % (37.0-47.0); Hemoglobin 7.6 g/dL (12.0-15.0); Immature Granulocyte Absolute 0.09 K/mm3 (0.00-0.031); Immature Granulocyte Percent A 0.7 % (0-0.5); Lymphocytes Absolute Auto 1.17 K/mm3 (0.9-3.2); Lymphocytes Percent Auto 9.4 % (18.3-44.2); Mean Corpuscular HGB Conc 33.5 g/dl (32-36); Mean Corpuscular Hemoglobin 29.9 pg (26-34); Mean Corpuscular Volume 89.4 fl (80-100); Mean Platelet Volume 10.5 fl (7.4-10.4); Monocytes Percent Auto 8.3 % (2.6-8.5); Neutrophils Absolute Auto 10.1 K/mm3 (1.3-6.7); Neutrophils Percent Auto 81.4 % (45.5-73.1); Platelet Count Result 228 k/mm3 (150-375); Red Blood Count 2.54 M/mm3 (4.2-5.4); White Blood Count 12.5 K/mm3 (4.5-10.0)
[2024-01-09 06:33] LABS: Anion Gap 35 mmol/L (4-12); Blood Urea Nitrogen 19 mg/dL (7-17); Carbon Dioxide 14 mmol/L (22-30); Chloride 89 mmol/L (98-107); Estimated CRCL calculation 19 ml/min; Estimated Glomerular Filt Rate 18; Glucose 286 mg/dL (65-110); Sodium 138 mmol/L (137-145)
[2024-01-09 06:34] LABS: Alanine Aminotransferase 13 U/L (6-35); Albumin Level 3.3 g/dL (3.5-5.1); Alkaline Phosphatase 79 U/L (38-126); Aspartate Amino Transferase 68 U/L (14-36); Bilirubin,Total 0.3 mg/dL (0.2-1.3); Calcium 7.8 mg/dL (8.4-10.2); Magnesium 1.9 mg/dL (1.6-2.3); Phosphorus 2.4 mg/dL (2.5-4.5)
[2024-01-09 07:05] LABS: Glucose Point of Care 276 mg/dl (65-105)
[2024-01-09 08:13] LABS: Levetiracetam Keppra <2.0 mcg/mL (6.0-46.0)
--- NOTE | 2024-01-09 08:26 | P.PNINT_ITS ---
Progress Note: A&P Assessment and Plan (1) Acute kidney failure: Code(s): N17.9 - Acute kidney failure, unspecified Status: Acute Assessment and Plan: On chronic kidney injury, unknown cause, CT of the abdomen and pelvis did not show any hydronephrosis or urinary obstruction -significant lactic acidosis and metabolic acidosis -patient has a history of diabetes, hypertension which is likely the cause of chronic kidney disease -patient on lisinopril hydrochlorothiazide and metformin at home -patient was given a total of 3 L IV fluid bolus, 1 L in the ER and 2 L in the ICU -sodium bicarb IV pushes x4 in the ICU -patient was started on sodium bicarb infusion after discussing with Nephrology -patient was started on hemodialysis and was dialyzed last 2 days -continue to monitor urine output, electrolytes and renal function (2) Metabolic acidosis: Code(s): E87.20 - Acidosis, unspecified Status: Acute Assessment and Plan: Patient presented with significant metabolic acidosis and lactic acidosis. This could be combination of septic shock, acute kidney injury but also a possibility of metformin toxicity Patient received hemodialysis on last 2 days. Further dialysis per Nephrology Discontinue IV fluids with bicarb Continue bicarb through gastric tube Monitor (3) Acute respiratory failure: Code(s): J96.00 - Acute respiratory failure, unspecified whether with hypoxia or hypercapnia Status: Acute Assessment and Plan: Patient had an episode of emesis in the ER, given her altered mental status e ncephalopathy, risk of aspiration with impending respiratory failure patient was intubated on 01/06/2025 -currently on CMV mode of ventilation, peep of 5, 50% FiO2 -ABG reviewed and decrease vent rate to 18 -chest x-ray reviewed -sedation holiday and evaluate for weaning trial (4) Septic shock: Code(s): A41.9 - Sepsis, unspecified organism; R65.21 - Severe sepsis with septic shock Status: Acute Assessment and Plan: Patient hypotensive on presentation Patient was given IV fluid bolus followed by maintenance IV fluids -lactic acid has improved -Levophed weaned off -off IV fluids -source appears to be UTI. Urine and blood cultures are pending -continue Rocephin -start weaning stress dose steroids (5) Encephalopathy: Code(s): G93.40 - Encephalopathy, unspecified Status: Acute Assessment and Plan: Patient presented with encephalopathy, altered mental status, delirium, confusion -most likely related to uremia, infection, severe acidosis and baseline flow malacia from past stroke -head CT IMPRESSION: 1. No acute intracranial process. 2. 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 3. Additional more diffuse likely age-related mild to moderate diffuse volume loss and mild scattered white matter hypoattenuation consistent with chronic small vessel ischemic disease. TSH and ammonia normal (6) Diastolic dysfunction: Code(s): I51.89 - Other ill-defined heart diseases Status: Acute Assessment and Plan: 12/07/2021 echocardiogram: Summary 1. Left ventricular chamber dimension is normal. 2. Left ventricular systolic function is normal, estimated at 65-70%. 3. There is moderately increased left ventricular wall thickness. 4. The left ventricular diastolic function is grade I diastolic dysfunction. 5. E/e' 13 is mildly elevated. 6. Left atrial chamber dimension is mildly enlarged. 7. There is moderate aortic valve sclerosis. 8. There is mild aortic valve stenosis with a peak velocity of 247.83 cm/s, mean gradient of 11 mmHg, and aortic valve area of 1.56 cm2. 9. The mitral valve has severely calcified annulus. 10. No pulmonary hypertension, estimated pulmonary arterial systolic pressure is 21 mmHg. (7) Hyperkalemia: Code(s): E87.5 - Hyperkalemia Status: Acute Assessment and Plan: Patient was treated with calcium gluconate, insulin, dextrose and albuterol. Potassium on admission was 5.7 Patient was dialyzed and hyperkalemia has resolved (8) Insulin dependent diabetes mellitus: Status: Chronic Assessment and Plan: Continue sliding scale insulin Accu-Cheks Add Lantus (9) Right hemiparesis: Code(s): G81.91 - Hemiplegia, unspecified affecting right dominant side Status: Acute Assessment and Plan: History of left-sided cerebral hemisphere and CVA, residual mild aphasia and right-sided weakness (10) Seizures: Code(s): R56.9 - Unspecified convulsions Status: Acute Assessment and Plan: Patient has a history of seizures, on p.o. Keppra 500 mg p.o. q.12 hours Continue Keppra IV 500 mg IV q.24 (discuss with pharmacist) Plan DVT prophylaxis: Heparin SQ Stress ulcer prophylaxis: Protonix Nutrition: Continue tube feeds Code Status: Full code I spoke to patient's son and at bedside updated them patient's status answered all their questions Critical Care Time Spent: 30 minutes Due to a high probability of clinically significant, life threatening deterioration, the patient required my highest level of preparedness to intervene emergently and I personally spent this critical care time directly and personally managing the patient. This critical care time included obtaining a history; examining the patient; pulse oximetry; ordering and review of studies; arranging urgent treatment with development of a management plan; evaluation of patient's response to treatment; frequent reassessment; and discussions with other providers. It was exclusive of separately billable procedures and treating other patients and teaching time. Please see Assessment and Plan section and the rest of the note for further information on patient assessment and treatment This dictation may have been done utilizing a voice recognition system. Attempts have been made to correct errors. However, there may be uncorrected grammatical, spelling, and recognitions errors present. Subjective Date/time seen: 01/09/24 Overnight events reviewed. Afebrile Continues to be on mechanical ventilation 21% FiO2 Off vasopressors Continues to be sedated with Versed and fentanyl Other Vitals acceptable She was dialyzed again yesterday Tolerating tube feeds Low but but improved urine output Review of Systems Review of Systems: ROS unobtainable: Yes unobtainable due to endotracheal tube, unobtainable due to medical condition and unobtainable due to mental status Exam Narrative: General: Intubated and sedated HEENT:? Pupils are equal, sluggishly reactive to light, sclera is clear, ETT in place Neck:? Supple, right IJ dialysis catheter in place Respiratory:? Coarse breath sounds bilaterally, decreased at bases no wheezing, adequate air entry Cardiac:? S1-S2 normal, regular rate and rhythm, Abdomen:? Soft, nontender, nondistended, hypoactive bowel sounds, old midline surgical scar noted Extremities:? Dry skin, decreased pedal pulses, no edema Neuro:? Patient is intubated, sedated, perrl Skin:? Dry and flaky skin on lower extremities, skin is warm Psych:? Unable to assess at this time Objective Data Vital Signs Vital Signs: Vital Signs - 24 hr 01/08/24 08:36 01/08/24 08:36 01/08/24 08:48 Temperature 36.2 C L Pulse Rate 83 84 Respiratory Rate 25 H Blood Pressure 114/48 L 134/54 L Pulse Oximetry 100 Oxygen Delivery Fraction of Inspired Oxygen 21 01/08/24 12:00 01/08/24 12:45 01/08/24 09:00 Temperature 36.6 C Pulse Rate 79 84 88 Respiratory Rate 24 H Blood Pressure 128/51 L 152/54 H 144/49 H Pulse Oximetry 100 Oxygen Delivery Fraction of Inspired Oxygen 01/08/24 09:15 01/08/24 09:30 01/08/24 09:45 Temperature Pulse Rate 87 83 82 Respiratory Rate Blood Pressure 150/53 H 127/50 L 117/54 L Pulse Oximetry Oxygen Delivery Fraction of Inspired Oxygen 01/08/24 10:00 01/08/24 10:15 01/08/24 10:30 Temperature Pulse Rate 81 82 81 Respiratory Rate Blood Pressure 107/49 L 108/59 L 116/52 L Pulse Oximetry Oxygen Delivery Fraction of Inspired Oxygen 01/08/24 10:45 01/08/24 10:48 01/08/24 11:00 Temperature Pulse Rate 80 78 78 Respiratory Rate Blood Pressure 115/51 L 115/51 L 125/51 L Pulse Oximetry Oxygen Delivery Fraction of Inspired Oxygen 01/08/24 11:15 01/08/24 11:30 01/08/24 11:45 Temperature Pulse Rate 79 78 80 Respiratory Rate Blood Pressure 127/63 133/52 L 136/54 L Pulse Oximetry Oxygen Delivery Fraction of Inspired Oxygen 01/08/24 10:00 01/08/24 10:00 01/08/24 10:00 Temperature Pulse Rate 82 82 82 Respiratory Rate 24 H 24 H Blood Pressure 107/49 L Pulse Oximetry Oxygen Delivery Fraction of Inspired Oxygen 01/08/24 10:00 01/08/24 10:00 01/08/24 11:47 Temperature 36.6 C Pulse Rate 80 82 79 Respiratory Rate 24 H Blood Pressure 107/47 L Pulse Oximetry 100 100 Oxygen Delivery Mechanical Ventilation Fraction of Inspired Oxygen 21 01/08/24 12:00 01/08/24 12:00 01/08/24 12:00 Temperature Pulse Rate 82 82 82 Respiratory Rate 24 H 24 H Blood Pressure 128/51 L Pulse Oximetry Oxygen Delivery Fraction of Inspired Oxygen 01/08/24 12:15 01/08/24 12:21 01/08/24 12:00 Temperature Pulse Rate 79 80 Respiratory Rate Blood Pressure 144/55 H 129/51 L Pulse Oximetry 100 Oxygen Delivery Mechanical Ventilation Fraction of Inspired Oxygen 21 01/08/24 12:00 01/08/24 12:00 01/08/24 12:59 Temperature 36.6 C Pulse Rate 81 76 Respiratory Rate 24 H Blood Pressure 129/51 L Pulse Oximetry 100 100 Oxygen Delivery Mechanical Ventilation Fraction of Inspired Oxygen 21 21 01/08/24 12:00 01/08/24 14:00 01/08/24 14:00 Temperature 36.7 C Pulse Rate 79 88 87 Respiratory Rate 24 H 24 H Blood Pressure 155/52 H Pulse Oximetry 100 Oxygen Delivery Fraction of Inspired Oxygen 01/08/24 14:00 01/08/24 14:00 01/08/24 14:00 Temperature Pulse Rate 87 87 87 Respiratory Rate 24 H Blood Pressure 155/52 H Pulse Oximetry Oxygen Delivery Fraction of Inspired Oxygen 01/08/24 15:03 01/08/24 16:30 01/08/24 16:45 Temperature Pulse Rate 98 101 H 101 H Respiratory Rate 24 H 24 H Blood Pressure Pulse Oximetry 100 Oxygen Delivery Mechanical Ventilation Fraction of Inspired Oxygen 21 01/08/24 16:00 01/08/24 16:00 01/08/24 16:00 Temperature Pulse Rate 92 Respiratory Rate Blood Pressure Pulse Oximetry 100 Oxygen Delivery Mechanical Ventilation Fraction of Inspired Oxygen 21 21 01/08/24 16:00 01/08/24 18:00 01/08/24 18:00 Temperature 37.0 C 37.3 C Pulse Rate 92 99 99 Respiratory Rate 24 H 24 H Blood Pressure 153/52 H 166/59 H Pulse Oximetry 100 100 Oxygen Delivery Fraction of Inspired Oxygen 01/08/24 16:00 01/08/24 18:00 01/08/24 18:00 Temperature Pulse Rate 92 99 99 Respiratory Rate 24 H 24 H 24 H Blood Pressure Pulse Oximetry Oxygen Delivery Fraction of Inspired Oxygen 01/08/24 16:00 01/08/24 18:00 01/08/24 20:20 Temperature Pulse Rate 92 99 109 H Respiratory Rate Blood Pressure 153/52 H 166/59 H Pulse Oximetry 100 Oxygen Delivery Mechanical Ventilation Fraction of Inspired Oxygen 21 01/08/24 21:35 01/08/24 20:00 01/08/24 20:00 Temperature Pulse Rate 88 99 99 Respiratory Rate 24 H 24 H Blood Pressure 132/53 L Pulse Oximetry Oxygen Delivery Fraction of Inspired Oxygen 01/08/24 20:00 01/08/24 20:00 01/08/24 20:00 Temperature Pulse Rate 90 Respiratory Rate Blood Pressure Pulse Oximetry 100 Oxygen Delivery Mechanical Ventilation Fraction of Inspired Oxygen 21 21 01/08/24 20:00 01/08/24 22:00 01/08/24 22:00 Temperature 37.4 C Pulse Rate 90 87 87 Respiratory Rate 24 H 24 H 24 H Blood Pressure 137/51 L Pulse Oximetry 100 Oxygen Delivery Fraction of Inspired Oxygen 01/08/24 22:00 01/08/24 22:00 01/08/24 23:35 Temperature 37.4 C Pulse Rate 87 87 88 Respiratory Rate 24 H Blood Pressure 131/51 L Pulse Oximetry 100 100 Oxygen Delivery Mechanical Ventilation Fraction of Inspired Oxygen 21 01/09/24 00:00 01/09/24 00:00 01/09/24 00:00 Temperature Pulse Rate 92 92 92 Respiratory Rate 24 H 24 H Blood Pressure Pulse Oximetry Oxygen Delivery Fraction of Inspired Oxygen 01/09/24 00:00 01/09/24 00:00 01/09/24 00:00 Temperature 37.2 C Pulse Rate 92 Respiratory Rate 24 H Blood Pressure 146/57 H Pulse Oximetry 100 Oxygen Delivery Mechanical Ventilation Fraction of Inspired Oxygen 21 01/09/24 02:00 01/09/24 02:00 01/09/24 02:00 Temperature Pulse Rate 90 90 88 Respiratory Rate 24 H 24 H Blood Pressure Pulse Oximetry Oxygen Delivery Fraction of Inspired Oxygen 01/09/24 02:26 01/09/24 02:00 01/09/24 04:00 Temperature Pulse Rate 91 90 91 Respiratory Rate 24 H 24 H Blood Pressure 113/47 L Pulse Oximetry 100 100 Oxygen Delivery Mechanical Ventilation Fraction of Inspired Oxygen 21 01/09/24 04:00 01/09/24 05:15 01/09/24 04:00 Temperature Pulse Rate 91 97 90 Respiratory Rate 24 H Blood Pressure Pulse Oximetry 100 Oxygen Delivery Mechanical Ventilation Fraction of Inspired Oxygen 21 01/09/24 04:00 01/09/24 04:00 01/09/24 06:00 Temperature 37.2 C 37.3 C Pulse Rate 94 95 Respiratory Rate 24 H 24 H Blood Pressure 121/47 L 133/54 L Pulse Oximetry 100 100 100 Oxygen Delivery Mechanical Ventilation Fraction of Inspired Oxygen 21 01/09/24 06:00 01/09/24 06:00 01/09/24 06:00 Temperature Pulse Rate 95 95 95 Respiratory Rate 24 H 24 H Blood Pressure Pulse Oximetry Oxygen Delivery Fraction of Inspired Oxygen 01/09/24 08:18 Temperature Pulse Rate 93 Respiratory Rate Blood Pressure Pulse Oximetry 100 Oxygen Delivery Mechanical Ventilation Fraction of Inspired Oxygen 21 Intake/Output Intake/Output: Intake & Output 01/06/24 01/07/24 01/08/24 01/09/24 23:59 23:59 23:59 23:59 Intake Total 2289.0 3365.7 985.7 Output Total 0 110 830 Balance 2289.0 3255.7 155.7 Meds/Results Medications: Active Medications Generic Name Dose Route Start Last Admin Trade Name Freq PRN Reason Stop Dose Admin Dextrose 12.5 gm 01/07/24 13:18 Dextrose 50% 25 Gm/50 Ml Syringe IV PUSH PRN PRN Hypoglycemia Protocol Glucagon 1 mg 01/07/24 13:18 Glucagon For Inj 1 Mg Vial IM PRN PRN Hypoglycemia Protocol Glucose 15 gm 01/07/24 13:18 Glucose Oral Gel 15 Gm Of Glucse In 37.5 Gm Tube PO PRN PRN Hypoglycemia Protocol Heparin Sodium (Porcine) 5,000 units 01/07/24 21:00 01/08/24 21:11 Heparin Sodium 5,000 Units/Ml Vial SUB-Q 5,000 units Q12HR CARMELA Administration Hydrocortisone Sodium Succinate 100 mg 01/07/24 22:00 01/09/24 06:22 Hydrocortisone Sodium Succinate 100 Mg/2 Ml Vial IV PUSH 100 mg Q8HR CARMELA Administration Dextrose 1,000 mls @ 100 mls/hr 01/07/24 13:18 Dextrose 5% 1,000 Ml IVPB PRN PRN Hypoglycemia Protocol Albumin Human 50 mls @ 999 mls/hr 01/07/24 17:11 Albutein IVPB 02/06/24 17:10 Q10M PRN HYPOTENSION Fentanyl Citrate 2,500 mcg in 250 mls @ 7.5 mls/hr 01/07/24 18:55 01/09/24 06:00 Fentanyl 2,500 Mcg/Ns 250 Ml IV CONT 75 mcg/hr .[id number] CARMELA 7.5 mls/hr Titration Protocol 75 MCG/HR Midazolam HCl 100 mg in 100 mls @ 3 mls/hr 01/07/24 18:55 01/09/24 06:00 Versed 100 Mg/Ns 100 Ml IV CONT 3 mg/hr .[id number] CARMELA 3 mls/hr Titration Protocol 3 MG/HR Levetiracetam 500 mg in 100 mls @ 400 mls/hr 01/07/24 21:00 01/08/24 21:56 Keppra Iv IVPB Infused Q24H CARMELA Infusion Norepinephrine Bitartrate 8 mg in 250 mls @ 0 mls/hr 01/07/24 19:15 01/08/24 21:35 Levophed 8 Mg/D5w 250 Ml IV CONT Infused .Q0M CARMELA Titration Protocol 0 MCG/MIN Ceftriaxone Sodium 2 gm in 100 mls @ 200 mls/hr 01/08/24 12:30 01/08/24 13:30 Rocephin 2 Gm/Ns 100 Ml IVPB Infused DAILY CARMELA Infusion Potassium Phosphate 20 mmol/ 256.6667 mls @ 64.167 mls/hr 01/09/24 08:30 Sodium Chloride IVPB 01/09/24 12:29 ONCE ONE Insulin Aspart 3 - 6 units 01/09/24 08:00 Insulin Aspart (*Bkc) 100 Units/Ml SUB-Q Q4H CARMELA Protocol Insulin Glargine 10 units 01/09/24 09:00 Insulin Glargine (*Bkc) 100 Units/Ml SUB-Q QAM CARMELA Labetalol HCl 20 mg 01/08/24 14:39 Labetalol Hcl Inj 100 Mg/20 Ml Vial IV PUSH Q4H PRN Hypertension Multi-Ingred Cream/Lotion/Oil/Oint 1 applic 01/07/24 21:00 01/08/24 21:12 Mineral Oil/White Petrolatum Ointment EACH EYE 1 applic Q12HR CARMELA Administration Pantoprazole Sodium 40 mg 01/07/24 21:00 01/08/24 21:11 Pantoprazole Sodium Iv 40 Mg Vial IV PUSH 40 mg Q12HR CARMELA Administration Sodium Bicarbonate 1,300 mg 01/08/24 09:00 01/08/24 16:24 Sodium Bicarbonate Tab 650 Mg Tablet PO 01/10/24 08:59 1,300 mg BID CARMELA Administration Radiology Results: ITS Impressions Head CT 01/07/24 13:41 IMPRESSION: 1. No acute intracranial process. 2. 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 3. Additional more diffuse likely age-related mild to moderate diffuse volume loss and mild scattered white matter hypoattenuation consistent with chronic small vessel ischemic disease. Abdomen/Pelvis CT 01/07/24 16:52 IMPRESSION: No acute abdominopelvic process. Specifically, there is no CT evidence of bowel obstruction. No definite evidence of renal injury, noting that low-grade renal injury as can be difficult to detect without contrast. Renal Ultrasound 01/08/24 10:47 IMPRESSION: 1. Normal kidney sizes. No hydronephrosis. Chest X-Ray 01/09/24 06:16 Impression: Possible left lower lobe atelectasis or pneumonia. Correlate clinically. Support tubes, as above. Labs Labs: Laboratory Results - last 24 hr 01/07/24 01/08/24 01/08/24 22:41 09:03 09:36 WBC RBC Hgb Hct MCV MCH MCHC RDW Plt Count MPV Immature Gran % (Auto) Neut % (Auto) Lymph % (Auto) [place] % (Auto) Eos % (Auto) Baso % (Auto) Lymph # (Auto) [place] # (Auto) Eos # (Auto) Baso # (Auto) Abs Immat Gran (auto) Absolute Neuts (auto) Absolute Nucleated RBC Nucleated RBC % Puncture Site ABG pH ABG pCO2 ABG pO2 ABG PO2/FiO2 Ratio ABG HCO3 ABG O2 Saturation ABG O2 Content ABG Base Excess A-a Gradient Oxyhemoglobin Total Hemoglobin O2 Delivery Device O2 Liters/Min Minute Volume Vent Rate Vent Mode FiO2 Tidal Volume PEEP Peak Inspir Pressure Pressure Support Sodium Potassium Chloride Carbon Dioxide Anion Gap BUN Creatinine Estim Creat Clear Calc Estimated GFR Glucose POC Capillary Glucose Lactic Acid 5.2 H* Calcium Phosphorus Magnesium Total Bilirubin AST ALT Alkaline Phosphatase Ammonia < 9 L Total Protein Albumin Urine Eosinophils U Random Total Protein Ur Random Sodium Ur Random Urea Urine Creatinine Protein/Creat Ratio 2 Levetiracetam <2.0 L 01/08/24 01/08/24 01/08/24 12:58 16:32 20:27 WBC RBC Hgb Hct MCV MCH MCHC RDW Plt Count MPV Immature Gran % (Auto) Neut % (Auto) Lymph % (Auto) [place] % (Auto) Eos % (Auto) Baso % (Auto) Lymph # (Auto) [place] # (Auto) Eos # (Auto) Baso # (Auto) Abs Immat Gran (auto) Absolute Neuts (auto) Absolute Nucleated RBC Nucleated RBC % Puncture Site ABG pH ABG pCO2 ABG pO2 ABG PO2/FiO2 Ratio ABG HCO3 ABG O2 Saturation ABG O2 Content ABG Base Excess A-a Gradient Oxyhemoglobin Total Hemoglobin O2 Delivery Device O2 Liters/Min Minute Volume Vent Rate Vent Mode FiO2 Tidal Volume PEEP Peak Inspir Pressure Pressure Support Sodium Potassium Chloride Carbon Dioxide Anion Gap BUN Creatinine Estim Creat Clear Calc Estimated GFR Glucose POC Capillary Glucose 125 H 157 H Lactic Acid Calcium Phosphorus Magnesium Total Bilirubin AST ALT Alkaline Phosphatase Ammonia Total Protein Albumin Urine Eosinophils None seen U Random Total Protein 85 Ur Random Sodium Ur Random Urea Urine Creatinine Protein/Creat Ratio 2 Levetiracetam 01/08/24 01/08/24 01/09/24 20:27 20:27 00:00 WBC RBC Hgb Hct MCV MCH MCHC RDW Plt Count MPV Immature Gran % (Auto) Neut % (Auto) Lymph % (Auto) [place] % (Auto) Eos % (Auto) Baso % (Auto) Lymph # (Auto) [place] # (Auto) Eos # (Auto) Baso # (Auto) Abs Immat Gran (auto) Absolute Neuts (auto) Absolute Nucleated RBC Nucleated RBC % Puncture Site ABG pH ABG pCO2 ABG pO2 ABG PO2/FiO2 Ratio ABG HCO3 ABG O2 Saturation ABG O2 Content ABG Base Excess A-a Gradient Oxyhemoglobin Total Hemoglobin O2 Delivery Device O2 Liters/Min Minute Volume Vent Rate Vent Mode FiO2 Tidal Volume PEEP Peak Inspir Pressure Pressure Support Sodium Potassium Chloride Carbon Dioxide Anion Gap BUN Creatinine Estim Creat Clear Calc Estimated GFR Glucose POC Capillary Glucose 259 H Lactic Acid Calcium Phosphorus Magnesium Total Bilirubin AST ALT Alkaline Phosphatase Ammonia Total Protein Albumin Urine Eosinophils U Random Total Protein 82 Ur Random Sodium 145 Ur Random Urea < 67 Urine Creatinine 5.5 6.1 Protein/Creat Ratio 2 15.45 H Levetiracetam 01/09/24 01/09/24 01/09/24 05:32 06:17 06:21 WBC 12.5 H RBC 2.54 L Hgb 7.6 L Hct 22.7 L MCV 89.4 MCH 29.9 MCHC 33.5 RDW 14.0 Plt Count 228 MPV 10.5 H Immature Gran % (Auto) 0.7 H Neut % (Auto) 81.4 H Lymph % (Auto) 9.4 L [place] % (Auto) 8.3 Eos % (Auto) 0.0 Baso % (Auto) 0.2 Lymph # (Auto) 1.17 [place] # (Auto) 1.0 H Eos # (Auto) 0.0 Baso # (Auto) 0.0 Abs Immat Gran (auto) 0.09 H Absolute Neuts (auto) 10.1 H Absolute Nucleated RBC 0.000 Nucleated RBC % 0.0 Puncture Site Left brachial ABG pH 7.438 ABG pCO2 22.2 L* ABG pO2 95.8 ABG PO2/FiO2 Ratio 4.56 ABG HCO3 14.7 L ABG O2 Saturation 97.7 ABG O2 Content 11.3 L ABG Base Excess -8.3 A-a Gradient 27.3 Oxyhemoglobin 96.2 Total Hemoglobin 8.2 L O2 Delivery Device Ventilator O2 Liters/Min Not Reportable Minute Volume Not Reportable Vent Rate 24 Vent Mode Cmv FiO2 21 Tidal Volume 400 PEEP 5 Peak Inspir Pressure Not Reportable Pressure Support Not Reportable Sodium 138 Potassium 3.0 L Chloride 89 L Carbon Dioxide 14 L Anion Gap 35 H BUN 19 H Creatinine 2.70 H Estim Creat Clear Calc 19 Estimated GFR 18 L Glucose 286 H POC Capillary Glucose 276 H Lactic Acid 1.0 Calcium 7.8 L Phosphorus 2.4 L Magnesium 1.9 Total Bilirubin 0.3 AST 68 H ALT 13 Alkaline Phosphatase 79 Ammonia Total Protein 6.0 L Albumin 3.3 L Urine Eosinophils U Random Total Protein Ur Random Sodium Ur Random Urea Urine Creatinine Protein/Creat Ratio 2 Levetiracetam Quality VTE Prophylaxis VTE prophylaxis: mechanical ordered and pharmacologic ordered
[2024-01-09 08:59] LABS: Glucose Point of Care 238 mg/dl (65-105)
[2024-01-09] MEDS: POTASSIUM CHLORIDE 20 MEQ PACKET (FOR LIQUID) 40 MEQ FEED TUBE (08:59)
[2024-01-09] MEDS: INSULIN GLARGINE (*BKC) 100 UNITS/ML 10 UNITS SUB-Q (09:00)
[2024-01-09] MEDS: HEPARIN SODIUM 5,000 UNITS/ML VIAL 5000 UNITS SUB-Q ×2 (09:01→21:03)
[2024-01-09] MEDS: SODIUM BICARBONATE TAB 650 MG TABLET 1300 MG PO ×2 (09:03→16:33)
[2024-01-09] MEDS: PANTOPRAZOLE SODIUM IV 40 MG VIAL IV PUSH ×2 (09:03→21:03)
[2024-01-09] MEDS: MINERAL OIL/WHITE PETROLATUM OINTMENT 1 APPLIC EACH EYE ×2 (09:04→21:04)
[2024-01-09] MEDS: cefTRIAXone 2 GM/NS 100 ML 2 GM/100 ML BAG IVPB (09:04)
[2024-01-09] MEDS: POTASSIUM PHOS,M-BASIC-D-BASIC 20 MMOL in SODIUM CHLORIDE 0.9% IV 250 ML 64.17 MMOL IVPB (09:04)
--- NOTE | 2024-01-09 10:08 | P.PNNP_ITS ---
Progress Note: A&P Assessment and Plan (1) Acute kidney failure: Code(s): N17.9 - Acute kidney failure, unspecified Status: Acute Assessment and Plan: * baseline creatinine not known * reported has some underlying renal insufficiency/CKD per family * attempting to get records from PCP * complicated by severe acidosis and hyperkalemia on admission * etiology likely multifactorial: * infection/sepsis * hemodynamic instability/shock * SRINIVAS-I + HCTZ use prior to admission * possible prerenal factors * metformin use prior to admission * continued BP medications prior to admission * s/p aggressive IVF resuscitation * multiple pushes of IV bicarb * evaluation to date noted: * CT of abd/pelvis and renal ultrasound negative for obstruction * urine eosinophils negative * CPK normal * urine electrolytes non-prerenal * UA suggestive of infection * proteinuria noted * ORTHOTIST/PROSTHETIST/HD on 01/06 and 01/07 more so for clearance of uremic toxins and treatment of acidosis * hold HD today * follow repeat labs and UOP for evidence of renal recovery (2) Septic shock: Code(s): A41.9 - Sepsis, unspecified organism; R65.21 - Severe sepsis with septic shock Status: Acute Assessment and Plan: * initially normotensive on presentation * however, worsening hypotension in the ER * s/p aggressive IVF resuscitation * presumsed source = aspiration pneumonia + UTI * follow culture data * on empiric antibiotics * vasopressor therapy to maintain MAP - weaned off * follow trend of hemodynamics (3) Acute respiratory failure: Code(s): J96.00 - Acute respiratory failure, unspecified whether with hypoxia or hypercapnia Status: Acute Assessment and Plan: * due to AMS + emesis and concerns for aspiration and inability to protect airway * intubated and on mechanical ventilation * continue ventilator support * weaning as tolerated (4) Acidosis: Code(s): E87.20 - Acidosis, unspecified Status: Acute Assessment and Plan: * due to a combination of ACRMEN, lactic acidosis, and sepsis * s/p multiple pushes of IV bicarb on admission to ICU * ORTHOTIST/PROSTHETIST/dialysis x 2 in an attempt correction of acidosis * was also on bicarb gtt * now on oral bicarbonate * trend lactic acid * follow ABGs (5) Hyperkalemia: Code(s): E87.5 - Hyperkalemia Status: Acute Assessment and Plan: * better * as noted on admission labs * due to CARMEN/ARF * s/p medical management in the ER * dialysis further corrected/stabilized * follow trend of repeat K+ levels (6) Encephalopathy: Code(s): G93.40 - Encephalopathy, unspecified Status: Acute Assessment and Plan: * as noted by presentation of altered mental status, delirium, and confusion * presumably related to uremia, infection, along with severe acidosis * TSH and ammonia levels noted * reassess when more stable and extubated (7) Insulin dependent diabetes mellitus: Status: Chronic Assessment and Plan: * holding metformin * follow accu-cheks * glycemic control per hospitalists/district recruiter Will continue to follow. Subjective Date/time seen: 01/09/24 10:08 Interval history: Follow-up for acute kidney injury/acute renal failure (on chronic kidney dise ase??). Tolerated dialysis treatment yesterday without any issues or problems; remains intubated/sedated and on mechanical ventilation; hemodynamically stable if not hypertensive in the last 24 hours without the need for vasopressor support; lactic acidosis has resolved; improvement in urine output noted overnight. Exam Narrative: General: somewhat ill appearing female intubated/sedated and on mechanical ventilation Heart: normal S1 and S2; no rub Lungs: coarse breath sounds Abdomen: soft, nontender, nondistended, hypoactive bowel sounds Extremities: no cyanosis or clubbing; no edema Skin: warm and intact Objective Data Vital Signs Vital Signs: Vital Signs Temp Pulse Resp BP Pulse Ox O2 Del Method FiO2 01/09/24 10:00 98.8 F 100 18 150/69 H 100 01/09/24 10:00 100 18 01/09/24 10:00 100 18 01/09/24 08:00 21 01/09/24 08:00 100 Mechanical Ventilation 21 01/09/24 08:00 96 01/09/24 08:00 98.6 F 91 24 H 129/70 100 01/09/24 08:18 93 100 Mechanical Ventilation 21 01/09/24 08:00 94 24 H 01/09/24 08:00 95 24 H 01/09/24 06:00 95 24 H 01/09/24 06:00 95 24 H 01/09/24 06:00 95 01/09/24 06:00 99.2 F 95 24 H 133/54 L 100 01/09/24 04:00 98.9 F 94 24 H 121/47 L 100 01/09/24 04:00 100 Mechanical Ventilation 21 01/09/24 04:00 90 01/09/24 05:15 97 100 Mechanical Ventilation 21 01/09/24 04:00 91 24 H 01/09/24 04:00 91 24 H 01/09/24 02:00 90 24 H 113/47 L 100 01/09/24 02:26 91 100 Mechanical Ventilation 21 01/09/24 02:00 88 01/09/24 02:00 90 24 H 01/09/24 02:00 90 24 H 01/09/24 00:00 99 F 92 24 H 146/57 H 100 01/09/24 00:00 21 01/09/24 00:00 Mechanical Ventilation 01/09/24 00:00 92 01/09/24 00:00 92 24 H 01/09/24 00:00 92 24 H 01/08/24 23:35 88 100 Mechanical Ventilation 21 01/08/24 22:00 99.4 F 87 24 H 131/51 L 100 01/08/24 22:00 87 01/08/24 22:00 87 24 H 01/08/24 22:00 87 24 H 01/08/24 20:00 99.4 F 90 24 H 137/51 L 100 01/08/24 20:00 21 01/08/24 20:00 100 Mechanical Ventilation 21 01/08/24 20:00 90 01/08/24 20:00 99 24 H 01/08/24 20:00 99 24 H 01/08/24 21:35 88 132/53 L 01/08/24 20:20 109 H 100 Mechanical Ventilation 21 01/08/24 18:00 99 166/59 H 01/08/24 16:00 92 153/52 H 01/08/24 18:00 99 24 H 01/08/24 18:00 99 24 H 01/08/24 16:00 92 24 H 01/08/24 18:00 99.1 F 99 24 H 166/59 H 100 01/08/24 18:00 99 01/08/24 16:00 98.6 F 92 24 H 153/52 H 100 01/08/24 16:00 21 01/08/24 16:00 100 Mechanical Ventilation 21 01/08/24 16:00 92 01/08/24 16:45 101 H 100 Mechanical Ventilation 21 01/08/24 16:30 101 H 24 H 01/08/24 15:03 98 24 H 01/08/24 14:00 87 01/08/24 14:00 87 155/52 H 01/08/24 14:00 87 24 H 01/08/24 14:00 87 24 H 01/08/24 14:00 98.0 F 88 24 H 155/52 H 100 01/08/24 12:00 79 01/08/24 12:59 76 100 Mechanical Ventilation 01/08/24 12:00 97.9 F 81 24 H 129/51 L 100 01/08/24 12:00 21 01/08/24 12:00 100 Mechanical Ventilation 21 01/08/24 12:21 80 129/51 L 01/08/24 12:15 79 144/55 H 01/08/24 12:00 82 128/51 L 01/08/24 12:00 82 24 H 01/08/24 12:00 82 24 H 01/08/24 11:47 79 100 Mechanical Ventilation 01/08/24 11:45 80 136/54 L 01/08/24 11:30 78 133/52 L 01/08/24 11:15 79 127/63 01/08/24 12:45 97.9 F 84 24 H 152/54 H 100 01/08/24 12:00 79 128/51 L Intake/Output Intake/Output: Intake & Output 01/06/24 01/07/24 01/08/24 01/09/24 23:59 23:59 23:59 23:59 Intake Total 2289.0 3465.7 1605.0 Output Total 0 110 830 Balance 2289.0 3355.7 775.0 Meds/Results Medications: Active Medications Generic Name Dose Route Start Last Admin Trade Name Freq PRN Reason Stop Dose Admin Dextrose 12.5 gm 01/07/24 13:18 Dextrose 50% 25 Gm/50 Ml Syringe IV PUSH PRN PRN Hypoglycemia Protocol Glucagon 1 mg 01/07/24 13:18 Glucagon For Inj 1 Mg Vial IM PRN PRN Hypoglycemia Protocol Glucose 15 gm 01/07/24 13:18 Glucose Oral Gel 15 Gm Of Glucse In 37.5 Gm Tube PO PRN PRN Hypoglycemia Protocol Heparin Sodium (Porcine) 5,000 units 01/07/24 21:00 01/09/24 09:01 Heparin Sodium 5,000 Units/Ml Vial SUB-Q 5,000 units Q12HR CARMELA Administration Hydrocortisone Sodium Succinate 100 mg 01/09/24 09:00 01/09/24 09:01 Hydrocortisone Sodium Succinate 100 Mg/2 Ml Vial IV PUSH 100 mg QAM CARMELA Administration Dextrose 1,000 mls @ 100 mls/hr 01/07/24 13:18 Dextrose 5% 1,000 Ml IVPB PRN PRN Hypoglycemia Protocol Albumin Human 50 mls @ 999 mls/hr 01/07/24 17:11 Albutein IVPB 02/06/24 17:10 Q10M PRN HYPOTENSION Fentanyl Citrate 2,500 mcg in 250 mls @ 0 mls/hr 01/07/24 18:55 01/09/24 10:00 Fentanyl 2,500 Mcg/Ns 250 Ml IV CONT 0 mcg/hr .Q0M CARMELA 0 mls/hr Titration Protocol Midazolam HCl 100 mg in 100 mls @ 0 mls/hr 01/07/24 18:55 01/09/24 10:00 Versed 100 Mg/Ns 100 Ml IV CONT 0 mg/hr .Q0M CARMELA 0 mls/hr Titration Protocol Levetiracetam 500 mg in 100 mls @ 400 mls/hr 01/07/24 21:00 01/08/24 21:56 Keppra Iv IVPB Infused Q24H CARMELA Infusion Ceftriaxone Sodium 2 gm in 100 mls @ 200 mls/hr 01/08/24 12:30 01/09/24 09:40 Rocephin 2 Gm/Ns 100 Ml IVPB Infused DAILY CARMELA Infusion Potassium Phosphate 20 mmol/ 256.6667 mls @ 64.167 mls/hr 01/09/24 08:30 01/09/24 09:04 Sodium Chloride IVPB 01/09/24 12:29 64.17 mls/hr ONCE ONE Administration Insulin Aspart 3 - 6 units 01/09/24 08:00 01/09/24 08:59 Insulin Aspart (*Bkc) 100 Units/Ml SUB-Q 3 units Q4H CARMELA Administration Protocol Insulin Glargine 10 units 01/09/24 09:00 01/09/24 09:00 Insulin Glargine (*Bkc) 100 Units/Ml SUB-Q 10 units QAM CARMELA Administration Labetalol HCl 20 mg 01/08/24 14:39 Labetalol Hcl Inj 100 Mg/20 Ml Vial IV PUSH Q4H PRN Hypertension Multi-Ingred Cream/Lotion/Oil/Oint 1 applic 01/07/24 21:00 01/09/24 09:04 Mineral Oil/White Petrolatum Ointment EACH EYE 1 applic Q12HR CARMELA Administration Pantoprazole Sodium 40 mg 01/07/24 21:00 01/09/24 09:03 Pantoprazole Sodium Iv 40 Mg Vial IV PUSH 40 mg Q12HR CARMELA Administration Sodium Bicarbonate 1,300 mg 01/08/24 09:00 01/09/24 09:03 Sodium Bicarbonate Tab 650 Mg Tablet PO 01/10/24 08:59 1,300 mg BID CARMELA Administration Radiology Results: ITS Impressions Head CT 01/07/24 13:41 IMPRESSION: 1. No acute intracranial process. 2. 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 3. Additional more diffuse likely age-related mild to moderate diffuse volume loss and mild scattered white matter hypoattenuation consistent with chronic small vessel ischemic disease. Abdomen/Pelvis CT 01/07/24 16:52 IMPRESSION: No acute abdominopelvic process. Specifically, there is no CT evidence of bowel obstruction. No definite evidence of renal injury, noting that low-grade renal injury as can be difficult to detect without contrast. Renal Ultrasound 01/08/24 10:47 IMPRESSION: 1. Normal kidney sizes. No hydronephrosis. Chest X-Ray 01/09/24 06:16 Impression: Possible left lower lobe atelectasis or pneumonia. Correlate clinically. Support tubes, as above. Labs Labs: Laboratory Tests 01/09/24 06:17 01/09/24 06:17 Lactic Acid 1.0 Calcium 7.8 L Phosphorus 2.4 L Magnesium 1.9 Total Bilirubin 0.3 AST 68 H ALT 13 Alkaline Phosphatase 79 Total Protein 6.0 L Albumin 3.3 L Microbiology 01/07/24 15:41 Blood Blood Culture - Preliminary 01/07/24 15:41 Blood Blood Culture - Preliminary
--- NOTE | 2024-01-09 11:07 | PCNFU ---
Nutrition Follow-Up Complete: Inadequate energy intake related to mechanical ventilation, increased needs from dialysis as evidenced by need for full tube feeding Goal: Meet estimated nutrition needs Patient is progressing towards goal. We will continue current goal. Pt current nutrition is Nepro at 40 ml/hr. Last recorded weight is 80.8 kg, up from 79.5 kg on admit Bowel Motility: No BM at this time. Labs Reviewed: Glu 286, GFR 18, BUN 19, Cr 2.7,K 3.0 Meds Noted: Keppra, Protonix, NovoLog, Lantus, Rocephin, Heparin. Skin: WNL Additional Notes:Patient remains on mechanical vent. No sedation at this time. Tube feedings are being tolerated of Nepro at 40 ml/hr providing 1584 kcal/71 gm protein/640 ml water. Meeting 70% caloric needs at this time, 74% protein needs. Dialysis treatment 01/07. Tube feedings are appropriate at this time. Monitoring tube feeding tolerance, labs, weights, output, plan of care Follow up daily in rounds, reassess Monday and Monday
[2024-01-09 12:14] LABS: Glucose Point of Care 303 mg/dl (65-105)
--- NOTE | 2024-01-09 15:12 | P.PNGS_ITS ---
Progress Note: A&P Assessment and Plan (1) Septic shock: Code(s): A41.9 - Sepsis, unspecified organism; R65.21 - Severe sepsis with septic shock Status: Acute Assessment and Plan: The patient likely has urosepsis and is clinically improving with critical care management. Lactic acid normalized. WBC count is trending down to 12,500 today. Continue aggressive supportive management as per the catalyst unit operator. Will continue to follow along for any acute changes. (2) Acute respiratory failure: Code(s): J96.00 - Acute respiratory failure, unspecified whether with hypoxia or hypercapnia Status: Acute Assessment and Plan: Patient intubated in the ICU. Management per [employer]. (3) Acute on chronic kidney failure: Code(s): N17.9 - Acute kidney failure, unspecified; N18.9 - Chronic kidney disease, unspe cified Status: Acute Assessment and Plan: Patient had hemodialysis the last two days. Creatinine down to 2.7. Nephrology following. (4) Urinary tract infection: Code(s): N39.0 - Urinary tract infection, site not specified Status: Acute Plan I have discussed the patient's case and plan of care with Dr. Noland. Subjective Subjective Date/Time Seen: 01/09/24 10:32 Interval history: Patient intubated in the ICU. Her sedation was turned off for about 2 hours prior to my arrival. Patient does not open eyes or follow any commands on my evaluation. She is not on any vasopressors. Review of Systems Review of Systems: ROS unobtainable: Yes unobtainable due to endotracheal tube Exam Const: General: ill appearing and patient obtunded (Intubated ) GI: Inspection: non-distended GI Palp: Yes Soft to palpation, No Firmness to palpation present (GI) and No Guarding due to palpation present (GI) Auscultation: Hypoactive bowel sounds present Other: Exam limited as patient is intubated and obtunded Objective Data Vital Signs Vital Signs: Vital Signs - 24 hr 01/08/24 16:30 01/08/24 16:45 01/08/24 16:00 Temperature Pulse Rate 101 H 101 H 92 Respiratory Rate 24 H Blood Pressure Pulse Oximetry 100 Oxygen Delivery Mechanical Ventilation Fraction of Inspired Oxygen 21 01/08/24 16:00 01/08/24 16:00 01/08/24 16:00 Temperature 98.6 F Pulse Rate 92 Respiratory Rate 24 H Blood Pressure 153/52 H Pulse Oximetry 100 100 Oxygen Delivery Mechanical Ventilation Fraction of Inspired Oxygen 21 21 01/08/24 18:00 01/08/24 18:00 01/08/24 16:00 Temperature 99.1 F Pulse Rate 99 99 92 Respiratory Rate 24 H 24 H Blood Pressure 166/59 H Pulse Oximetry 100 Oxygen Delivery Fraction of Inspired Oxygen 01/08/24 18:00 01/08/24 18:00 01/08/24 16:00 Temperature Pulse Rate 99 99 92 Respiratory Rate 24 H 24 H Blood Pressure 153/52 H Pulse Oximetry Oxygen Delivery Fraction of Inspired Oxygen 01/08/24 18:00 01/08/24 20:20 01/08/24 21:35 Temperature Pulse Rate 99 109 H 88 Respiratory Rate Blood Pressure 166/59 H 132/53 L Pulse Oximetry 100 Oxygen Delivery Mechanical Ventilation Fraction of Inspired Oxygen 21 01/08/24 20:00 01/08/24 20:00 01/08/24 20:00 Temperature Pulse Rate 99 99 90 Respiratory Rate 24 H 24 H Blood Pressure Pulse Oximetry Oxygen Delivery Fraction of Inspired Oxygen 01/08/24 20:00 01/08/24 20:00 01/08/24 20:00 Temperature 99.4 F Pulse Rate 90 Respiratory Rate 24 H Blood Pressure 137/51 L Pulse Oximetry 100 100 Oxygen Delivery Mechanical Ventilation Fraction of Inspired Oxygen 21 21 01/08/24 22:00 01/08/24 22:00 01/08/24 22:00 Temperature Pulse Rate 87 87 87 Respiratory Rate 24 H 24 H Blood Pressure Pulse Oximetry Oxygen Delivery Fraction of Inspired Oxygen 01/08/24 22:00 01/08/24 23:35 01/09/24 00:00 Temperature 99.4 F Pulse Rate 87 88 92 Respiratory Rate 24 H 24 H Blood Pressure 131/51 L Pulse Oximetry 100 100 Oxygen Delivery Mechanical Ventilation Fraction of Inspired Oxygen 21 01/09/24 00:00 01/09/24 00:00 01/09/24 00:00 Temperature Pulse Rate 92 92 Respiratory Rate 24 H Blood Pressure Pulse Oximetry Oxygen Delivery Mechanical Ventilation Fraction of Inspired Oxygen 01/09/24 00:00 01/09/24 00:00 01/09/24 02:00 Temperature 99 F Pulse Rate 92 90 Respiratory Rate 24 H 24 H Blood Pressure 146/57 H Pulse Oximetry 100 Oxygen Delivery Fraction of Inspired Oxygen 21 01/09/24 02:00 01/09/24 02:00 01/09/24 02:26 Temperature Pulse Rate 90 88 91 Respiratory Rate 24 H Blood Pressure Pulse Oximetry 100 Oxygen Delivery Mechanical Ventilation Fraction of Inspired Oxygen 21 01/09/24 02:00 01/09/24 04:00 01/09/24 04:00 Temperature Pulse Rate 90 91 91 Respiratory Rate 24 H 24 H 24 H Blood Pressure 113/47 L Pulse Oximetry 100 Oxygen Delivery Fraction of Inspired Oxygen 01/09/24 05:15 01/09/24 04:00 01/09/24 04:00 Temperature Pulse Rate 97 90 Respiratory Rate Blood Pressure Pulse Oximetry 100 100 Oxygen Delivery Mechanical Ventilation Mechanical Ventilation Fraction of Inspired Oxygen 21 21 01/09/24 04:00 01/09/24 06:00 01/09/24 06:00 Temperature 98.9 F 99.2 F Pulse Rate 94 95 95 Respiratory Rate 24 H 24 H Blood Pressure 121/47 L 133/54 L Pulse Oximetry 100 100 Oxygen Delivery Fraction of Inspired Oxygen 01/09/24 06:00 01/09/24 06:00 01/09/24 08:00 Temperature Pulse Rate 95 95 95 Respiratory Rate 24 H 24 H 24 H Blood Pressure Pulse Oximetry Oxygen Delivery Fraction of Inspired Oxygen 01/09/24 08:00 01/09/24 08:18 01/09/24 08:00 Temperature 98.6 F Pulse Rate 94 93 91 Respiratory Rate 24 H 24 H Blood Pressure 129/70 Pulse Oximetry 100 100 Oxygen Delivery Mechanical Ventilation Fraction of Inspired Oxygen 21 01/09/24 08:00 01/09/24 08:00 01/09/24 08:00 Temperature Pulse Rate 96 Respiratory Rate Blood Pressure Pulse Oximetry 100 Oxygen Delivery Mechanical Ventilation Fraction of Inspired Oxygen 21 21 01/09/24 10:00 01/09/24 10:00 01/09/24 10:00 Temperature 98.8 F Pulse Rate 100 100 100 Respiratory Rate 18 18 18 Blood Pressure 150/69 H Pulse Oximetry 100 Oxygen Delivery Fraction of Inspired Oxygen 01/09/24 10:00 01/09/24 10:42 01/09/24 12:00 Temperature Pulse Rate 100 102 H 102 H Respiratory Rate Blood Pressure Pulse Oximetry 100 Oxygen Delivery Mechanical Ventilation Fraction of Inspired Oxygen 21 01/09/24 12:00 01/09/24 12:00 01/09/24 12:00 Temperature 99.5 F Pulse Rate 101 H Respiratory Rate 18 Blood Pressure 150/61 H Pulse Oximetry 100 100 Oxygen Delivery Mechanical Ventilation Fraction of Inspired Oxygen 21 21 01/09/24 12:00 01/09/24 12:00 01/09/24 13:34 Temperature Pulse Rate 101 H 101 H 101 H Respiratory Rate 18 18 Blood Pressure Pulse Oximetry 99 Oxygen Delivery Mechanical Ventilation Fraction of Inspired Oxygen 21 01/09/24 14:00 01/09/24 14:00 Temperature 99.3 F Pulse Rate 111 H 111 H Respiratory Rate 18 Blood Pressure 155/86 H Pulse Oximetry 100 Oxygen Delivery Fraction of Inspired Oxygen Intake/Output Intake/Output: Intake & Output 01/06/24 01/07/24 01/08/24 01/09/24 23:59 23:59 23:59 23:59 Intake Total 2289.0 3465.7 1605.0 Output Total 0 110 830 Balance 2289.0 3355.7 775.0 Meds/Results Medications: Active Medications Generic Name Dose Route Start Last Admin Trade Name Freq PRN Reason Stop Dose Admin Dextrose 12.5 gm 01/07/24 13:18 Dextrose 50% 25 Gm/50 Ml Syringe IV PUSH PRN PRN Hypoglycemia Protocol Glucagon 1 mg 01/07/24 13:18 Glucagon For Inj 1 Mg Vial IM PRN PRN Hypoglycemia Protocol Glucose 15 gm 01/07/24 13:18 Glucose Oral Gel 15 Gm Of Glucse In 37.5 Gm Tube PO PRN PRN Hypoglycemia Protocol Heparin Sodium (Porcine) 5,000 units 01/07/24 21:00 01/09/24 09:01 Heparin Sodium 5,000 Units/Ml Vial SUB-Q 5,000 units Q12HR CARMELA Administration Hydrocortisone Sodium Succinate 100 mg 01/09/24 09:00 01/09/24 09:01 Hydrocortisone Sodium Succinate 100 Mg/2 Ml Vial IV PUSH 100 mg QAM CARMELA Administration Dextrose 1,000 mls @ 100 mls/hr 01/07/24 13:18 Dextrose 5% 1,000 Ml IVPB PRN PRN Hypoglycemia Protocol Albumin Human 50 mls @ 999 mls/hr 01/07/24 17:11 Albutein IVPB 02/06/24 17:10 Q10M PRN HYPOTENSION Levetiracetam 500 mg in 100 mls @ 400 mls/hr 01/07/24 21:00 01/08/24 21:56 Keppra Iv IVPB Infused Q24H CARMELA Infusion Ceftriaxone Sodium 2 gm in 100 mls @ 200 mls/hr 01/08/24 12:30 01/09/24 09:40 Rocephin 2 Gm/Ns 100 Ml IVPB Infused DAILY CARMELA Infusion Insulin Aspart 3 - 6 units 01/09/24 08:00 01/09/24 12:10 Insulin Aspart (*Bkc) 100 Units/Ml SUB-Q 5 units Q4H CARMELA Administration Protocol Insulin Glargine 10 units 01/09/24 09:00 01/09/24 09:00 Insulin Glargine (*Bkc) 100 Units/Ml SUB-Q 10 units QAM CARMELA Administration Labetalol HCl 20 mg 01/08/24 14:39 Labetalol Hcl Inj 100 Mg/20 Ml Vial IV PUSH Q4H PRN Hypertension Multi-Ingred Cream/Lotion/Oil/Oint 1 applic 01/07/24 21:00 01/09/24 09:04 Mineral Oil/White Petrolatum Ointment EACH EYE 1 applic Q12HR CARMELA Administration Pantoprazole Sodium 40 mg 01/07/24 21:00 01/09/24 09:03 Pantoprazole Sodium Iv 40 Mg Vial IV PUSH 40 mg Q12HR CARMELA Administration Sodium Bicarbonate 1,300 mg 01/08/24 09:00 01/09/24 09:03 Sodium Bicarbonate Tab 650 Mg Tablet PO 01/10/24 08:59 1,300 mg BID CARMELA Administration Radiology Results: ITS Impressions Head CT 01/07/24 13:41 IMPRESSION: 1. No acute intracranial process. 2. 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 3. Additional more diffuse likely age-related mild to moderate diffuse volume loss and mild scattered white matter hypoattenuation consistent with chronic small vessel ischemic disease. Abdomen/Pelvis CT 01/07/24 16:52 IMPRESSION: No acute abdominopelvic process. Specifically, there is no CT evidence of bowel obstruction. No definite evidence of renal injury, noting that low-grade renal injury as can be difficult to detect without contrast. Renal Ultrasound 01/08/24 10:47 IMPRESSION: 1. Normal kidney sizes. No hydronephrosis. Chest X-Ray 01/09/24 06:16 Impression: Possible left lower lobe atelectasis or pneumonia. Correlate clinically. Support tubes, as above. Labs Labs: Laboratory Results - last 24 hr 01/07/24 01/08/24 01/08/24 22:41 16:32 20:27 WBC RBC Hgb Hct MCV MCH MCHC RDW Plt Count MPV Immature Gran % (Auto) Neut % (Auto) Lymph % (Auto) Pershing % (Auto) Eos % (Auto) Baso % (Auto) Lymph # (Auto) Pershing # (Auto) Eos # (Auto) Baso # (Auto) Abs Immat Gran (auto) Absolute Neuts (auto) Absolute Nucleated RBC Nucleated RBC % Puncture Site ABG pH ABG pCO2 ABG pO2 ABG PO2/FiO2 Ratio ABG HCO3 ABG O2 Saturation ABG O2 Content ABG Base Excess A-a Gradient Oxyhemoglobin Total Hemoglobin O2 Delivery Device O2 Liters/Min Minute Volume Vent Rate Vent Mode FiO2 Tidal Volume PEEP Peak Inspir Pressure Pressure Support Sodium Potassium Chloride Carbon Dioxide Anion Gap BUN Creatinine Estim Creat Clear Calc Estimated GFR Glucose POC Capillary Glucose 157 H Lactic Acid Calcium Phosphorus Magnesium Total Bilirubin AST ALT Alkaline Phosphatase Total Protein Albumin Urine Eosinophils None seen U Random Total Protein 85 Ur Random Sodium Ur Random Urea Urine Creatinine Protein/Creat Ratio 2 Levetiracetam <2.0 L 01/08/24 01/08/24 01/09/24 20:27 20:27 00:00 WBC RBC Hgb Hct MCV MCH MCHC RDW Plt Count MPV Immature Gran % (Auto) Neut % (Auto) Lymph % (Auto) Pershing % (Auto) Eos % (Auto) Baso % (Auto) Lymph # (Auto) Pershing # (Auto) Eos # (Auto) Baso # (Auto) Abs Immat Gran (auto) Absolute Neuts (auto) Absolute Nucleated RBC Nucleated RBC % Puncture Site ABG pH ABG pCO2 ABG pO2 ABG PO2/FiO2 Ratio ABG HCO3 ABG O2 Saturation ABG O2 Content ABG Base Excess A-a Gradient Oxyhemoglobin Total Hemoglobin O2 Delivery Device O2 Liters/Min Minute Volume Vent Rate Vent Mode FiO2 Tidal Volume PEEP Peak Inspir Pressure Pressure Support Sodium Potassium Chloride Carbon Dioxide Anion Gap BUN Creatinine Estim Creat Clear Calc Estimated GFR Glucose POC Capillary Glucose 259 H Lactic Acid Calcium Phosphorus Magnesium Total Bilirubin AST ALT Alkaline Phosphatase Total Protein Albumin Urine Eosinophils U Random Total Protein 82 Ur Random Sodium 145 Ur Random Urea < 67 Urine Creatinine 5.5 6.1 Protein/Creat Ratio 2 15.45 H Levetiracetam 01/09/24 01/09/24 01/09/24 05:32 06:17 06:21 WBC 12.5 H RBC 2.54 L Hgb 7.6 L Hct 22.7 L MCV 89.4 MCH 29.9 MCHC 33.5 RDW 14.0 Plt Count 228 MPV 10.5 H Immature Gran % (Auto) 0.7 H Neut % (Auto) 81.4 H Lymph % (Auto) 9.4 L Pershing % (Auto) 8.3 Eos % (Auto) 0.0 Baso % (Auto) 0.2 Lymph # (Auto) 1.17 Pershing # (Auto) 1.0 H Eos # (Auto) 0.0 Baso # (Auto) 0.0 Abs Immat Gran (auto) 0.09 H Absolute Neuts (auto) 10.1 H Absolute Nucleated RBC 0.000 Nucleated RBC % 0.0 Puncture Site Left brachial ABG pH 7.438 ABG pCO2 22.2 L* ABG pO2 95.8 ABG PO2/FiO2 Ratio 4.56 ABG HCO3 14.7 L ABG O2 Saturation 97.7 ABG O2 Content 11.3 L ABG Base Excess -8.3 A-a Gradient 27.3 Oxyhemoglobin 96.2 Total Hemoglobin 8.2 L O2 Delivery Device Ventilator O2 Liters/Min Not Reportable Minute Volume Not Reportable Vent Rate 24 Vent Mode Cmv FiO2 21 Tidal Volume 400 PEEP 5 Peak Inspir Pressure Not Reportable Pressure Support Not Reportable Sodium 138 Potassium 3.0 L Chloride 89 L Carbon Dioxide 14 L Anion Gap 35 H BUN 19 H Creatinine 2.70 H Estim Creat Clear Calc 19 Estimated GFR 18 L Glucose 286 H POC Capillary Glucose 276 H Lactic Acid 1.0 Calcium 7.8 L Phosphorus 2.4 L Magnesium 1.9 Total Bilirubin 0.3 AST 68 H ALT 13 Alkaline Phosphatase 79 Total Protein 6.0 L Albumin 3.3 L Urine Eosinophils U Random Total Protein Ur Random Sodium Ur Random Urea Urine Creatinine Protein/Creat Ratio 2 Levetiracetam 01/09/24 01/09/24 08:56 12:09 WBC RBC Hgb Hct MCV MCH MCHC RDW Plt Count MPV Immature Gran % (Auto) Neut % (Auto) Lymph % (Auto) Pershing % (Auto) Eos % (Auto) Baso % (Auto) Lymph # (Auto) [place]hing # (Auto) Eos # (Auto) Baso # (Auto) Abs Immat Gran (auto) Absolute Neuts (auto) Absolute Nucleated RBC Nucleated RBC % Puncture Site ABG pH ABG pCO2 ABG pO2 ABG PO2/FiO2 Ratio ABG HCO3 ABG O2 Saturation ABG O2 Content ABG Base Excess A-a Gradient Oxyhemoglobin Total Hemoglobin O2 Delivery Device O2 Liters/Min Minute Volume Vent Rate Vent Mode FiO2 Tidal Volume PEEP Peak Inspir Pressure Pressure Support Sodium Potassium Chloride Carbon Dioxide Anion Gap BUN Creatinine Estim Creat Clear Calc Estimated GFR Glucose POC Capillary Glucose 238 H 303 H Lactic Acid Calcium Phosphorus Magnesium Total Bilirubin AST ALT Alkaline Phosphatase Total Protein Albumin Urine Eosinophils U Random Total Protein Ur Random Sodium Ur Random Urea Urine Creatinine Protein/Creat Ratio 2 Levetiracetam
[2024-01-09 16:30] LABS: Glucose Point of Care 313 mg/dl (65-105)
[2024-01-09] MEDS: levETIRAcetam 500MG/NACL 100ML 500 MG/100 ML BAG 400 MG IVPB (21:04)
[2024-01-09 21:41] LABS: Glucose Point of Care 308 mg/dl (65-105)
[2024-01-09] MEDS: ACETAMINOPHEN 325 MG TABLET 650 MG PO (22:22)
[2024-01-09] MEDS: LABETALOL HCL INJ 100 MG/20 ML VIAL 20 MG IV PUSH (22:26)
[2024-01-10] VITALS (32 sets, daily range): BP systolic 104–161; BP diastolic 58–81; PULSE 95–114; RESP 15–18; TEMP 38.2–38.7; O2SAT 98–100
[2024-01-10] MEDS: INSULIN ASPART (*BKC) 100 UNITS/ML SUB-Q ×7 (00:10→23:53)
[2024-01-10 00:19] LABS: Glucose Point of Care 279 mg/dl (65-105)
[2024-01-10 04:32] LABS: Glucose Point of Care 402 mg/dl (65-105)
[2024-01-10 04:33] LABS: Glucose Point of Care 412 mg/dl (65-105)
[2024-01-10 04:35] LABS: Basophils Percent Auto 0.1 % (0.2-1.2); Eosinophils Percent Auto 0.1 % (0-4.4); Hematocrit 23.6 % (37.0-47.0); Hemoglobin 7.8 g/dL (12.0-15.0); Immature Granulocyte Absolute 0.09 K/mm3 (0.00-0.031); Immature Granulocyte Percent A 0.8 % (0-0.5); Lymphocytes Absolute Auto 1.07 K/mm3 (0.9-3.2); Lymphocytes Percent Auto 9.8 % (18.3-44.2); Mean Corpuscular HGB Conc 33.1 g/dl (32-36); Mean Corpuscular Hemoglobin 29.2 pg (26-34); Mean Corpuscular Volume 88.4 fl (80-100); Mean Platelet Volume 10.6 fl (7.4-10.4); Monocytes Absolute Auto 0.7 K/mm3 (0.1-0.6); Monocytes Percent Auto 6.8 % (2.6-8.5); Neutrophils Percent Auto 82.4 % (45.5-73.1); Platelet Count Result 201 k/mm3 (150-375); Red Blood Count 2.67 M/mm3 (4.2-5.4); Red Cell Distribution Width 14.2 % (11.5-14.5); White Blood Count 10.9 K/mm3 (4.5-10.0)
[2024-01-10 04:53] LABS: Lactic Acid Reflex 1.3 mmol/L (0.7-2.0)
[2024-01-10 04:54] LABS: Alanine Aminotransferase 14 U/L (6-35); Albumin Level 3.3 g/dL (3.5-5.1); Alkaline Phosphatase 86 U/L (38-126); Anion Gap 19 mmol/L (4-12); Aspartate Amino Transferase 70 U/L (14-36); Bilirubin,Total 0.6 mg/dL (0.2-1.3); Blood Urea Nitrogen 34 mg/dL (7-17); Calcium 7.6 mg/dL (8.4-10.2); Carbon Dioxide 29 mmol/L (22-30); Chloride 89 mmol/L (98-107); Estimated CRCL calculation 17 ml/min; Estimated Glomerular Filt Rate 15; Glucose 384 mg/dL (65-110); Magnesium 1.9 mg/dL (1.6-2.3); Phosphorus 1.6 mg/dL (2.5-4.5); Potassium 2.9 mmol/L (3.4-5.0); Sodium 137 mmol/L (137-145)
[2024-01-10] MEDS: LABETALOL HCL INJ 100 MG/20 ML VIAL 20 MG IV PUSH (06:34)
[2024-01-10 08:25] LABS: Glucose Point of Care 367 mg/dl (65-105)
--- NOTE | 2024-01-10 08:25 | WPDINTPN ---
Progress Note: A&P Assessment and Plan (1) Acute kidney failure: Code(s): N17.9 - Acute kidney failure, unspecified Status: Acute Assessment and Plan: On chronic kidney injury, unknown cause, CT of the abdomen and pelvis did not show any hydronephrosis or urinary obstruction -significant lactic acidosis and metabolic acidosis -patient has a history of diabetes, hypertension which is likely the cause of chronic kidney disease -patient on lisinopril hydrochlorothiazide and metformin at home -patient was given a total of 3 L IV fluid bolus, 1 L in the ER and 2 L in the ICU -sodium bicarb IV pushes x4 in the ICU -patient was started on sodium bicarb infusion after discussing with Nephrology -patient was started on hemodialysis and was dialyzed x 2 days -urine output has improved -continue to monitor urine output, electrolytes and renal function (2) Metabolic acidosis: Code(s): E87.20 - Acidosis, unspecified Status: Acute Assessment and Plan: Patient presented with significant metabolic acidosis and lactic acidosis. This could be combination of septic shock, acute kidney injury but also a possibility of metformin toxicity Patient received hemodialysis on last 2 days. Further dialysis per Nephrology Discontinue IV fluids with bicarb Monitor (3) Acute respiratory failure: Code(s): J96.00 - Acute respiratory failure, unspecified whether with hypoxia or hypercapnia Status: Acute Assessment and Plan: Patient had an episode of emesis in the ER, given her altered mental status encephalopathy, risk of aspiration with impending respiratory failure patient was intubated on 01/06/2025 -currently on CMV mode of ventilation, peep of 5, 50% FiO2 -ABG reviewed and decrease vent rate to 18 -chest x-ray reviewed -sedation is on hold. Will evaluate for weaning trial as patient mental status improves. (4) Septic shock: Code(s): A41.9 - Sepsis, unspecified organism; R65.21 - Severe sepsis with septic shock Status: Acute Assessment and Plan: Patient hypotensive on presentation Patient was given IV fluid bolus followed by maintenance IV fluids -lactic acid has improved -Levophed weaned off -off IV fluids -source appears to be UTI. Urine and blood cultures are negative till now -continue Rocephin -discontinue stress dose steroids (5) Encephalopathy: Code(s): G93.40 - Encephalopathy, unspecified Status: Acute Assessment and Plan: Patient presented with encephalopathy, altered mental status, delirium, confusion -most likely related to uremia, infection, severe acidosis and baseline flow malacia from past stroke -head CT IMPRESSION: 1. No acute intracranial process. 2. 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 3. Additional more diffuse likely age-related mild to moderate diffuse volume loss and mild scattered white matter hypoattenuation consistent with chronic small vessel ischemic disease. TSH and ammonia normal Patient now is off sedation since yesterday. Will continue hold sedatives. Will consider EEG if no improvement after next 24 hours (6) Diastolic dysfunction: Code(s): I51.89 - Other ill-defined heart diseases Status: Acute Assessment and Plan: 12/07/2021 echocardiogram: Summary 1. Left ventricular chamber dimension is normal. 2. Left ventricular systolic function is normal, estimated at 65-70%. 3. There is moderately increased left ventricular wall thickness. 4. The left ventricular diastolic function is grade I diastolic dysfunction. 5. E/e' 13 is mildly elevated. 6. Left atrial chamber dimension is mildly enlarged. 7. There is moderate aortic valve sclerosis. 8. There is mild aortic valve stenosis with a peak velocity of 247.83 cm/s, mean gradient of 11 mmHg, and aortic valve area of 1.56 cm2. 9. The mitral valve has severely calcified annulus. 10. No pulmonary hypertension, estimated pulmonary arterial systolic pressure is 21 mmHg. (7) Hyperkalemia: Code(s): E87.5 - Hyperkalemia Status: Acute Assessment and Plan: Patient was treated with calcium gluconate, insulin, dextrose and albuterol. Potassium on admission was 5.7 Patient was dialyzed and hyperkalemia has resolved (8) Insulin dependent diabetes mellitus: Status: Chronic Assessment and Plan: Continue sliding scale insulin Accu-Cheks Increased Lantus (9) Right hemiparesis: Code(s): G81.91 - Hemiplegia, unspecified affecting right dominant side Status: Acute Assessment and Plan: History of left-sided cerebral hemisphere and CVA, residual mild aphasia and right-sided weakness (10) Seizures: Code(s): R56.9 - Unspecified convulsions Status: Acute Assessment and Plan: Patient has a history of seizures, on p.o. Keppra 500 mg p.o. q.12 hours Continue Keppra IV 500 mg IV q.24 (discuss with pharmacist) Plan DVT prophylaxis: Heparin SQ Stress ulcer prophylaxis: Protonix Nutrition: Continue tube feeds Code Status: Full code Critical Care Time Spent: 30 minutes Due to a high probability of clinically significant, life threatening deterioration, the patient required my highest level of preparedness to intervene emergently and I personally spent this critical care time directly and personally managing the patient. This critical care time included obtaining a history; examining the patient; pulse oximetry; ordering and review of studies; arranging urgent treatment with development of a management plan; evaluation of patient's response to treatment; frequent reassessment; and discussions with other providers. It was exclusive of separately billable procedures and treating other patients and teaching time. Please see Assessment and Plan section and the rest of the note for further information on patient assessment and treatment This dictation may have been done utilizing a voice recognition system. Attempts have been made to correct errors. However, there may be uncorrected grammatical, spelling, and recognitions errors present. Subjective Date/time seen: 01/10/24 Overnight events reviewed. febrile Continues to be on mechanical ventilation 21% FiO2 Off vasopressors and sedative Still not waking up. Tolerating tube feeds. Good urine output. Other Vitals acceptable Review of Systems Review of Systems: ROS unobtainable: Yes unobtainable due to endotracheal tube, unobtainable due to medical condition and unobtainable due to mental status Exam Narrative: General: Intubated and sedated HEENT:? Pupils are equal, sluggishly reactive to light, sclera is clear, ETT in place Neck:? Supple, right IJ dialysis catheter in place Respiratory:? Coarse breath sounds bilaterally, decreased at bases no wheezing, adequate air entry Cardiac:? S1-S2 normal, regular rate and rhythm, Abdomen:? Soft, nontender, nondistended, hypoactive bowel sounds, old midline surgical scar noted Extremities:? Dry skin, decreased pedal pulses, no edema Neuro:? Patient is intubated, sedated, perrl. Not responsive to painful stimuli. Skin:? Dry and flaky skin on lower extremities, skin is warm Psych:? Unable to assess at this time Objective Data Vital Signs Vital Signs: Vital Signs - 24 hr 01/09/24 10:00 01/09/24 10:00 01/09/24 10:00 Temperature 37.1 C Pulse Rate 100 100 100 Respiratory Rate 18 18 18 Blood Pressure 150/69 H Pulse Oximetry 100 Oxygen Delivery Fraction of Inspired Oxygen 01/09/24 10:00 01/09/24 10:42 01/09/24 12:00 Temperature Pulse Rate 100 102 H 102 H Respiratory Rate Blood Pressure Pulse Oximetry 100 Oxygen Delivery Mechanical Ventilation Fraction of Inspired Oxygen 21 01/09/24 12:00 01/09/24 12:00 01/09/24 12:00 Temperature 37.5 C Pulse Rate 101 H Respiratory Rate 18 Blood Pressure 150/61 H Pulse Oximetry 100 100 Oxygen Delivery Mechanical Ventilation Fraction of Inspired Oxygen 21 21 01/09/24 12:00 01/09/24 12:00 01/09/24 13:34 Temperature Pulse Rate 101 H 101 H 101 H Respiratory Rate 18 18 Blood Pressure Pulse Oximetry 99 Oxygen Delivery Mechanical Ventilation Fraction of Inspired Oxygen 21 01/09/24 14:00 01/09/24 14:00 01/09/24 16:00 Temperature 37.4 C Pulse Rate 111 H 111 H Respiratory Rate 18 Blood Pressure 155/86 H Pulse Oximetry 100 100 Oxygen Delivery Mechanical Ventilation Fraction of Inspired Oxygen 21 01/09/24 16:00 01/09/24 16:00 01/09/24 16:00 Temperature 38.2 C H Pulse Rate 108 H 107 H Respiratory Rate 18 Blood Pressure 155/74 H Pulse Oximetry 100 Oxygen Delivery Fraction of Inspired Oxygen 21 01/09/24 16:59 01/09/24 18:00 01/09/24 18:00 Temperature 38.2 C H Pulse Rate 108 H 104 H 104 H Respiratory Rate 18 Blood Pressure 151/65 H Pulse Oximetry 99 99 Oxygen Delivery Mechanical Ventilation Fraction of Inspired Oxygen 21 01/09/24 20:50 01/09/24 20:00 01/09/24 20:00 Temperature 38.3 C H Pulse Rate 107 H 105 H Respiratory Rate 18 Blood Pressure 157/67 H Pulse Oximetry 99 99 Oxygen Delivery Mechanical Ventilation Fraction of Inspired Oxygen 21 21 01/09/24 20:00 01/09/24 22:22 01/09/24 22:26 Temperature 38.6 C H Pulse Rate 113 H Respiratory Rate Blood Pressure Pulse Oximetry 99 Oxygen Delivery Mechanical Ventilation Fraction of Inspired Oxygen 21 01/09/24 22:00 01/09/24 22:22 01/09/24 22:45 Temperature 38.5 C H Pulse Rate 114 H 113 H 98 Respiratory Rate 17 Blood Pressure 162/79 H 169/75 H 125/62 Pulse Oximetry 99 Oxygen Delivery Fraction of Inspired Oxygen 01/09/24 20:00 01/09/24 22:00 01/09/24 23:15 Temperature Pulse Rate 106 H 114 H 93 Respiratory Rate Blood Pressure Pulse Oximetry 100 Oxygen Delivery Mechanical Ventilation Fraction of Inspired Oxygen 21 01/10/24 00:16 01/10/24 00:00 01/10/24 00:00 Temperature 38.6 C H Pulse Rate 96 Respiratory Rate Blood Pressure Pulse Oximetry 99 Oxygen Delivery Mechanical Ventilation Fraction of Inspired Oxygen 21 01/10/24 00:00 01/10/24 00:00 01/10/24 02:00 Temperature 38.5 C H Pulse Rate 96 96 Respiratory Rate 15 Blood Pressure 123/58 L Pulse Oximetry 99 Oxygen Delivery Fraction of Inspired Oxygen 21 01/10/24 02:00 01/10/24 02:00 01/10/24 04:00 Temperature 38.2 C H 38.2 C H Pulse Rate 96 95 100 Respiratory Rate 18 18 Blood Pressure 148/62 H 157/65 H Pulse Oximetry 100 100 100 Oxygen Delivery Mechanical Ventilation Fraction of Inspired Oxygen 21 01/10/24 04:00 01/10/24 04:00 01/10/24 05:04 Temperature Pulse Rate 105 H Respiratory Rate Blood Pressure Pulse Oximetry 100 100 Oxygen Delivery Mechanical Ventilation Mechanical Ventilation Fraction of Inspired Oxygen 21 21 21 01/10/24 04:00 01/10/24 06:00 01/10/24 06:00 Temperature 38.3 C H Pulse Rate 98 108 H 110 H Respiratory Rate 18 Blood Pressure 152/77 H Pulse Oximetry 100 Oxygen Delivery Fraction of Inspired Oxygen 01/10/24 06:33 01/10/24 06:34 01/10/24 07:58 Temperature Pulse Rate 114 H 109 H 106 H Respiratory Rate Blood Pressure 161/73 H Pulse Oximetry 99 Oxygen Delivery Mechanical Ventilation Fraction of Inspired Oxygen 21 01/10/24 08:07 Temperature Pulse Rate Respiratory Rate Blood Pressure Pulse Oximetry 99 Oxygen Delivery Mechanical Ventilation Fraction of Inspired Oxygen 21 Intake/Output Intake/Output: Intake & Output 01/07/24 01/08/24 01/09/24 01/10/24 23:59 23:59 23:59 23:59 Intake Total 2289.0 3465.7 2867.0 699 Output Total 0 110 1930 1550 Balance 2289.0 3355.7 937.0 -851 Meds/Results Medications: Active Medications Generic Name Dose Route Start Last Admin Trade Name Freq PRN Reason Stop Dose Admin Acetaminophen 650 mg 01/10/24 08:02 Acetaminophen 325 Mg Tablet FEED TUBE Q6H PRN Mild Pain (1-3) or Fever Dextrose 12.5 gm 01/07/24 13:18 Dextrose 50% 25 Gm/50 Ml Syringe IV PUSH PRN PRN Hypoglycemia Protocol Glucagon 1 mg 01/07/24 13:18 Glucagon For Inj 1 Mg Vial IM PRN PRN Hypoglycemia Protocol Glucose 15 gm 01/07/24 13:18 Glucose Oral Gel 15 Gm Of Glucse In 37.5 Gm Tube PO PRN PRN Hypoglycemia Protocol Heparin Sodium (Porcine) 5,000 units 01/07/24 21:00 01/09/24 21:03 Heparin Sodium 5,000 Units/Ml Vial SUB-Q 5,000 units Q12HR CARMELA Administration Dextrose 1,000 mls @ 100 mls/hr 01/07/24 13:18 Dextrose 5% 1,000 Ml IVPB PRN PRN Hypoglycemia Protocol Albumin Human 50 mls @ 999 mls/hr 01/07/24 17:11 Albutein IVPB 02/06/24 17:10 Q10M PRN HYPOTENSION Levetiracetam 500 mg in 100 mls @ 400 mls/hr 01/07/24 21:00 01/09/24 21:19 Keppra Iv IVPB Infused Q24H CARMELA Infusion Ceftriaxone Sodium 2 gm in 100 mls @ 200 mls/hr 01/08/24 12:30 01/09/24 09:40 Rocephin 2 Gm/Ns 100 Ml IVPB Infused DAILY CARMELA Infusion Potassium Phosphate 20 mmol/ 256.6667 mls @ 64.167 mls/hr 01/10/24 07:46 Sodium Chloride IVPB 01/10/24 11:45 ONCE ONE Insulin Aspart 4 - 8 units 01/10/24 07:55 Insulin Aspart (*Bkc) 100 Units/Ml SUB-Q Q4H CARMELA Protocol Insulin Glargine 20 units 01/10/24 09:00 Insulin Glargine (*Bkc) 100 Units/Ml SUB-Q QAM CARMELA Labetalol HCl 20 mg 01/08/24 14:39 01/10/24 06:34 Labetalol Hcl Inj 100 Mg/20 Ml Vial IV PUSH 20 mg Q4H PRN Administration Hypertension Metoprolol Tartrate 25 mg 01/10/24 09:00 Metoprolol Tartrate 25 Mg Tablet FEED TUBE Q12HR CARMELA Multi-Ingred Cream/Lotion/Oil/Oint 1 applic 01/07/24 21:00 01/09/24 21:04 Mineral Oil/White Petrolatum Ointment EACH EYE 1 applic Q12HR CARMELA Administration Pantoprazole Sodium 40 mg 01/07/24 21:00 01/09/24 21:03 Pantoprazole Sodium Iv 40 Mg Vial IV PUSH 40 mg Q12HR CARMELA Administration Radiology Results: ITS Impressions Head CT 01/07/24 13:41 IMPRESSION: 1. No acute intracranial process. 2. 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 3. Additional more diffuse likely age-related mild to moderate diffuse volume loss and mild scattered white matter hypoattenuation consistent with chronic small vessel ischemic disease. Abdomen/Pelvis CT 01/07/24 16:52 IMPRESSION: No acute abdominopelvic process. Specifically, there is no CT evidence of bowel obstruction. No definite evidence of renal injury, noting that low-grade renal injury as can be difficult to detect without contrast. Renal Ultrasound 01/08/24 10:47 IMPRESSION: 1. Normal kidney sizes. No hydronephrosis. Chest X-Ray 01/10/24 05:30 Impression: Left basilar atelectasis versus pneumonia. Support tubes, as above. Labs Labs: Laboratory Results - last 24 hr 01/09/24 01/09/24 01/09/24 08:56 12:09 16:28 WBC RBC Hgb Hct MCV MCH MCHC RDW Plt Count MPV Immature Gran % (Auto) Neut % (Auto) Lymph % (Auto) [facility] % (Auto) Eos % (Auto) Baso % (Auto) Lymph # (Auto) [facility] # (Auto) Eos # (Auto) Baso # (Auto) Abs Immat Gran (auto) Absolute Neuts (auto) Absolute Nucleated RBC Nucleated RBC % Sodium Potassium Chloride Carbon Dioxide Anion Gap BUN Creatinine Estim Creat Clear Calc Estimated GFR Glucose POC Capillary Glucose 238 H 303 H 313 H Lactic Acid Calcium Phosphorus Magnesium Total Bilirubin AST ALT Alkaline Phosphatase Total Protein Albumin 01/09/24 01/10/24 01/10/24 21:00 00:06 04:24 WBC RBC Hgb Hct MCV MCH MCHC RDW Plt Count MPV Immature Gran % (Auto) Neut % (Auto) Lymph % (Auto) [facility] % (Auto) Eos % (Auto) Baso % (Auto) Lymph # (Auto) [facility] # (Auto) Eos # (Auto) Baso # (Auto) Abs Immat Gran (auto) Absolute Neuts (auto) Absolute Nucleated RBC Nucleated RBC % Sodium Potassium Chloride Carbon Dioxide Anion Gap BUN Creatinine Estim Creat Clear Calc Estimated GFR Glucose POC Capillary Glucose 308 H 279 H 402 H Lactic Acid Calcium Phosphorus Magnesium Total Bilirubin AST ALT Alkaline Phosphatase Total Protein Albumin 01/10/24 01/10/24 01/10/24 04:26 04:27 08:23 WBC 10.9 H RBC 2.67 L Hgb 7.8 L Hct 23.6 L MCV 88.4 MCH 29.2 MCHC 33.1 RDW 14.2 Plt Count 201 MPV 10.6 H Immature Gran % (Auto) 0.8 H Neut % (Auto) 82.4 H Lymph % (Auto) 9.[address] [place] [facility] % (Auto) 6.8 Eos % (Auto) 0.1 Baso % (Auto) 0.1 L Lymph # (Auto) 1.07 [facility] # (Auto) 0.7 H Eos # (Auto) 0.0 Baso # (Auto) 0.0 Abs Immat Gran (auto) 0.09 H Absolute Neuts (auto) 9.0 H Absolute Nucleated RBC 0.000 Nucleated RBC % 0.0 Sodium 137 Potassium 2.9 L Chloride 89 L Carbon Dioxide 29 Anion Gap 19 H BUN 34 H D Creatinine 3.20 H Estim Creat Clear Calc 17 Estimated GFR 15 L Glucose 384 H POC Capillary Glucose 412 H 367 H Lactic Acid 1.3 Calcium 7.6 L Phosphorus 1.6 L Magnesium 1.9 Total Bilirubin 0.6 AST 70 H ALT 14 Alkaline Phosphatase 86 Total Protein 6.0 L Albumin 3.3 L Quality VTE Prophylaxis VTE prophylaxis: mechanical ordered and pharmacologic ordered
[2024-01-10] MEDS: INSULIN GLARGINE (*BKC) 100 UNITS/ML 20 UNITS SUB-Q (08:31)
[2024-01-10] MEDS: cefTRIAXone 2 GM/NS 100 ML 2 GM/100 ML BAG IVPB (08:35)
[2024-01-10] MEDS: PANTOPRAZOLE SODIUM IV 40 MG VIAL IV PUSH ×2 (08:35→22:00)
[2024-01-10] MEDS: HEPARIN SODIUM 5,000 UNITS/ML VIAL 5000 UNITS SUB-Q ×2 (08:37→20:00)
[2024-01-10] MEDS: ACETAMINOPHEN 325 MG TABLET 650 MG FEED TUBE ×3 (08:46→20:49)
[2024-01-10] MEDS: POTASSIUM CHLORIDE 20 MEQ PACKET (FOR LIQUID) 40 MEQ FEED TUBE (08:47)
[2024-01-10] MEDS: METOPROLOL TARTRATE 25 MG TABLET FEED TUBE ×2 (08:47→20:04)
[2024-01-10] MEDS: MINERAL OIL/WHITE PETROLATUM OINTMENT 1 APPLIC EACH EYE ×2 (08:51→20:00)
[2024-01-10] MEDS: POTASSIUM PHOS,M-BASIC-D-BASIC 20 MMOL in SODIUM CHLORIDE 0.9% IV 250 ML 64.17 MMOL IVPB (09:12)
--- NOTE | 2024-01-10 11:28 | P.PNNP_ITS ---
Progress Note: A&P Assessment and Plan (1) Acute kidney failure: Code(s): N17.9 - Acute kidney failure, unspecified Status: Acute Assessment and Plan: * baseline creatinine not known * reported has some underlying renal insufficiency/CKD per family * complicated by severe acidosis and hyperkalemia on admission * etiology likely multifactorial: * infection/sepsis * hemodynamic instability/shock * SRINIVAS-I + HCTZ use prior to admission * possible prerenal factors * metformin use prior to admission * continued BP medications prior to admission * s/p aggressive IVF resuscitation * multiple pushes of IV bicarb * evaluation to date noted: * CT of abd/pelvis and renal ultrasound negative for obstruction * urine eosinophils negative * CPK normal * urine electrolytes non-prerenal * UA suggestive of infection * proteinuria noted * MACHINE FANCY STITCHER/HD on 01/06 and 01/07 more so for clearance of uremic toxins and treatment of acidosis * holding HD at this time (no critical electrolytes, stable acid-base status, and reasonable urine output) * follow repeat labs and UOP for evidence of renal recovery (2) Septic shock: Code(s): A41.9 - Sepsis, unspecified organism; R65.21 - Severe sepsis with septic shock Status: Acute Assessment and Plan: * initially normotensive on presentation * however, worsening hypotension in the ER * s/p aggressive IVF resuscitation * presumsed source = aspiration pneumonia + UTI * follow culture data * on empiric antibiotics * vasopressor therapy to maintain MAP - weaned off * follow trend of hemodynamics (3) Acute respiratory failure: Code(s): J96.00 - Acute respiratory failure, unspecified whether with hypoxia or hypercapnia Status: Acute Assessment and Plan: * due to AMS + emesis and concerns for aspiration and inability to protect airway * intubated and on mechanical ventilation * continue ventilator support * weaning as tolerated (4) Acidosis: Code(s): E87.20 - Acidosis, unspecified Status: Acute Assessment and Plan: * resolved * due to a combination of CARMEN, lactic acidosis, and sepsis on admission * s/p multiple pushes of IV bicarb on admission to ICU * MACHINE FANCY STITCHER/dialysis x 2 sesssions to help correct acidosis * was also on bicarb gtt and oral bicarbonate -- weaned off * lactic acid has normalized * continue supportive care (5) Hyperkalemia: Code(s): E87.5 - Hyperkalemia Status: Acute Assessment and Plan: * resolved (now with hypokalemia) * due to CARMEN/ARF * s/p medical management in the ER * dialysis further corrected/stabilized * follow trend of repeat K+ levels (6) Encephalopathy: Code(s): G93.40 - Encephalopathy, unspecified Status: Acute Assessment and Plan: * as noted by presentation of altered mental status, delirium, and confusion * presumably related to uremia, infection, along with severe acidosis * TSH and ammonia levels noted * reassess when more stable and extubated (7) Insulin dependent diabetes mellitus: Status: Chronic Assessment and Plan: * holding metformin * follow accu-cheks * glycemic control per hospitalists/garage helper Will continue to follow. Subjective Date/time seen: 01/10/24 11:28 Interval history: Follow-up for acute kidney injury/acute renal failure (on chronic kidney disease??). Febrile overnight but stable hemodynamics noted without the need for vasopressor therapy; remains intubated and on mechanical ventilation; off sedation but not waking up; renal function/creatinine a bit worse without dialytic support but has made good urine output in the last 24 hours with relative stability in electrolytes and improvement in acidosis; no other issues/events overnight or earlier this morning. Exam Narrative: General: somewhat ill appearing female intubated/sedated and on mechanical ventilation Heart: normal S1 and S2; no rub Lungs: coarse breath sounds Abdomen: soft, nontender, nondistended, hypoactive bowel sounds Extremities: no cyanosis or clubbing; no edema Skin: warm and intact Objective Data Vital Signs Vital Signs: Vital Signs Temp Pulse Resp BP Pulse Ox O2 Del Method FiO2 01/10/24 10:00 101.3 F H 01/10/24 10:00 101.3 F H 96 18 104/64 99 01/10/24 10:06 97 99 Mechanical Ventilation 01/10/24 10:00 100 01/10/24 08:00 21 01/10/24 08:00 99 Mechanical Ventilation 01/10/24 08:00 102 H 01/10/24 08:47 99 01/10/24 08:46 101.5 F H 01/10/24 08:00 101.7 F H 100 18 155/72 H 100 01/10/24 08:07 99 Mechanical Ventilation 01/10/24 07:58 106 H 99 Mechanical Ventilation 01/10/24 06:34 109 H 01/10/24 06:33 114 H 161/73 H 01/10/24 06:00 100.9 F H 110 H 18 152/77 H 100 01/10/24 06:00 108 H 01/10/24 04:00 98 01/10/24 05:04 105 H 100 Mechanical Ventilation 01/10/24 04:00 100 Mechanical Ventilation 21 01/10/24 04:00 21 01/10/24 04:00 100.7 F H 100 18 157/65 H 100 01/10/24 02:00 95 100 Mechanical Ventilation 21 01/10/24 02:00 100.7 F H 96 18 148/62 H 100 01/10/24 02:00 96 01/10/24 00:00 101.3 F H 96 15 123/58 L 99 01/10/24 00:00 21 01/10/24 00:00 99 Mechanical Ventilation 01/10/24 00:00 96 01/10/24 00:16 101.5 F H 01/09/24 23:15 93 100 Mechanical Ventilation 01/09/24 22:00 114 H 01/09/24 20:00 106 H 01/09/24 22:45 98 125/62 01/09/24 22:22 113 H 169/75 H 01/09/24 22:00 101.3 F H 114 H 17 162/79 H 99 01/09/24 22:26 113 H 01/09/24 22:22 101.4 F H 01/09/24 20:00 99 Mechanical Ventilation 01/09/24 20:00 21 01/09/24 20:00 101 F H 105 H 18 157/67 H 99 01/09/24 20:50 107 H 99 Mechanical Ventilation 01/09/24 18:00 100.8 F H 104 H 18 151/65 H 99 01/09/24 18:00 104 H 01/09/24 16:59 108 H 99 Mechanical Ventilation 01/09/24 16:00 107 H 01/09/24 16:00 100.8 F H 108 H 18 155/74 H 100 01/09/24 16:00 21 01/09/24 16:00 100 Mechanical Ventilation 21 01/09/24 14:00 99.3 F 111 H 18 155/86 H 100 01/09/24 14:00 111 H 01/09/24 13:34 101 H 99 Mechanical Ventilation 21 01/09/24 12:00 101 H 18 01/09/24 12:00 101 H 18 01/09/24 12:00 21 01/09/24 12:00 100 Mechanical Ventilation 21 01/09/24 12:00 99.5 F 101 H 18 150/61 H 100 01/09/24 12:00 102 H Intake/Output Intake/Output: Intake & Output 01/07/24 01/08/24 01/09/24 01/10/24 23:59 23:59 23:59 23:59 Intake Total 2289.0 3465.7 2867.0 799 Output Total 0 110 1930 1550 Balance 2289.0 3355.7 937.0 -751 Meds/Results Medications: Active Medications Generic Name Dose Route Start Last Admin Trade Name Freq PRN Reason Stop Dose Admin Acetaminophen 650 mg 01/10/24 08:02 01/10/24 08:46 Acetaminophen 325 Mg Tablet FEED TUBE 650 mg Q6H PRN Administration Mild Pain (1-3) or Fever Dextrose 12.5 gm 01/07/24 13:18 Dextrose 50% 25 Gm/50 Ml Syringe IV PUSH PRN PRN Hypoglycemia Protocol Glucagon 1 mg 01/07/24 13:18 Glucagon For Inj 1 Mg Vial IM PRN PRN Hypoglycemia Protocol Glucose 15 gm 01/07/24 13:18 Glucose Oral Gel 15 Gm Of Glucse In 37.5 Gm Tube PO PRN PRN Hypoglycemia Protocol Heparin Sodium (Porcine) 5,000 units 01/07/24 21:00 01/10/24 08:37 Heparin Sodium 5,000 Units/Ml Vial SUB-Q 5,000 units Q12HR CARMELA Administration Dextrose 1,000 mls @ 100 mls/hr 01/07/24 13:18 Dextrose 5% 1,000 Ml IVPB PRN PRN Hypoglycemia Protocol Albumin Human 50 mls @ 999 mls/hr 01/07/24 17:11 Albutein IVPB 02/06/24 17:10 Q10M PRN HYPOTENSION Levetiracetam 500 mg in 100 mls @ 400 mls/hr 01/07/24 21:00 01/09/24 21:19 Keppra Iv IVPB Infused Q24H CARMELA Infusion Ceftriaxone Sodium 2 gm in 100 mls @ 200 mls/hr 01/08/24 12:30 01/10/24 09:05 Rocephin 2 Gm/Ns 100 Ml IVPB Infused DAILY CARMELA Infusion Potassium Phosphate 20 mmol/ 256.6667 mls @ 64.167 mls/hr 01/10/24 07:46 01/10/24 09:12 Sodium Chloride IVPB 01/10/24 11:45 64.17 mls/hr ONCE ONE Administration Insulin Aspart 4 - 8 units 01/10/24 07:55 01/10/24 08:31 Insulin Aspart (*Bkc) 100 Units/Ml SUB-Q 8 units Q4H CARMELA Administration Protocol Insulin Glargine 20 units 01/10/24 09:00 01/10/24 08:31 Insulin Glargine (*Bkc) 100 Units/Ml SUB-Q 20 units QAM CARMELA Administration Labetalol HCl 20 mg 01/08/24 14:39 01/10/24 06:34 Labetalol Hcl Inj 100 Mg/20 Ml Vial IV PUSH 20 mg Q4H PRN Administration Hypertension Metoprolol Tartrate 25 mg 01/10/24 09:00 01/10/24 08:47 Metoprolol Tartrate 25 Mg Tablet FEED TUBE 25 mg Q12HR CARMELA Administration Multi-Ingred Cream/Lotion/Oil/Oint 1 applic 01/07/24 21:00 01/10/24 08:51 Mineral Oil/White Petrolatum Ointment EACH EYE 1 applic Q12HR CARMELA Administration Pantoprazole Sodium 40 mg 01/07/24 21:00 01/10/24 08:35 Pantoprazole Sodium Iv 40 Mg Vial IV PUSH 40 mg Q12HR CARMELA Administration Radiology Results: ITS Impressions Head CT 01/07/24 13:41 IMPRESSION: 1. No acute intracranial process. 2. 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 3. Additional more diffuse likely age-related mild to moderate diffuse volume loss and mild scattered white matter hypoattenuation consistent with chronic small vessel ischemic disease. Abdomen/Pelvis CT 01/07/24 16:52 IMPRESSION: No acute abdominopelvic process. Specifically, there is no CT evidence of bowel obstruction. No definite evidence of renal injury, noting that low-grade renal injury as can be difficult to detect without contrast. Renal Ultrasound 01/08/24 10:47 IMPRESSION: 1. Normal kidney sizes. No hydronephrosis. Chest X-Ray 01/10/24 05:30 Impression: Left basilar atelectasis versus pneumonia. Support tubes, as above. Labs Labs: Laboratory Tests 01/10/24 04:27 01/10/24 04:27 Lactic Acid 1.3 Calcium 7.6 L Phosphorus 1.6 L Magnesium 1.9 Total Bilirubin 0.6 AST 70 H ALT 14 Alkaline Phosphatase 86 Total Protein 6.0 L Albumin 3.3 L Microbiology 01/07/24 13:09 Urine Catheterized Urine Culture - Final
[2024-01-10 11:43] LABS: Glucose Point of Care 352 mg/dl (65-105)
--- NOTE | 2024-01-10 13:54 | PCFNICU ---
ICU Rounding Note: Pt current nutrition is Nepro at 40 ml/hr. Last recorded weight is 82.7 kg,up from 79.5 kg on admit. Bowel Motility: +BM reported 01/09 Labs Reviewed: Glu 384, BUN 34, Cr 3.2,K 2.9 Meds Noted: Rocephin, NovoLog, Lantus, Heparin, Keppra, Protonix. Skin: WNL Additional Notes: Patient remains on mechanical vent. Sedation is currently off. Tube feedings are being tolerating of Nepro at 40 ml/hr. Flush 30 ml q 4hours. No dialysis today. Following daily in ICU rounds. Monitoring tube feeding tolerance, labs, weights, output, plan of care reassess Monday and Monday.
[2024-01-10 14:19] LABS: Anion Gap 8 mmol/L (4-12); Blood Urea Nitrogen 37 mg/dL (7-17); Calcium 7.6 mg/dL (8.4-10.2); Carbon Dioxide 37 mmol/L (22-30); Chloride 94 mmol/L (98-107); Estimated CRCL calculation 15 ml/min; Estimated Glomerular Filt Rate 13; Glucose 327 mg/dL (65-110); Phosphorus 1.9 mg/dL (2.5-4.5); Potassium 3.2 mmol/L (3.4-5.0); Sodium 139 mmol/L (137-145)
[2024-01-10] MEDS: POTASSIUM CHLORIDE 20 MEQ PACKET (FOR LIQUID) FEED TUBE (14:42)
[2024-01-10] MEDS: POTASSIUM PHOS,M-BASIC-D-BASIC 40 MMOL in SODIUM CHLORIDE 0.9% IV 250 ML 43.89 MMOL IVPB (15:29)
[2024-01-10 16:11] LABS: Glucose Point of Care 327 mg/dl (65-105)
[2024-01-10 16:11] LABS: Glucose Point of Care 323 mg/dl (65-105)
[2024-01-10 19:51] LABS: Glucose Point of Care 272 mg/dl (65-105)
[2024-01-10] MEDS: levETIRAcetam 500MG/NACL 100ML 500 MG/100 ML BAG 400 MG IVPB (22:00)
[2024-01-10 23:54] LABS: Glucose Point of Care 325 mg/dl (65-105)
[2024-01-11] VITALS (34 sets, daily range): BP systolic 126–193; BP diastolic 61–89; PULSE 88–103; RESP 14–18; TEMP 38–38.7; O2SAT 91–100
[2024-01-11 04:25] LABS: Glucose Point of Care 339 mg/dl (65-105)
[2024-01-11] MEDS: INSULIN ASPART (*BKC) 100 UNITS/ML SUB-Q ×5 (04:26→20:11)
[2024-01-11] MEDS: LABETALOL HCL INJ 100 MG/20 ML VIAL 20 MG IV PUSH ×3 (04:30→22:28)
[2024-01-11 04:41] LABS: Basophils Percent Auto 0.2 % (0.2-1.2); Eosinophils Percent Auto 0.1 % (0-4.4); Hematocrit 24.7 % (37.0-47.0); Immature Granulocyte Absolute 0.04 K/mm3 (0.00-0.031); Immature Granulocyte Percent A 0.5 % (0-0.5); Lymphocytes Absolute Auto 1.04 K/mm3 (0.9-3.2); Lymphocytes Percent Auto 12.3 % (18.3-44.2); Mean Corpuscular HGB Conc 32.4 g/dl (32-36); Mean Corpuscular Hemoglobin 29.4 pg (26-34); Mean Corpuscular Volume 90.8 fl (80-100); Mean Platelet Volume 11.3 fl (7.4-10.4); Monocytes Absolute Auto 0.3 K/mm3 (0.1-0.6); Monocytes Percent Auto 3.5 % (2.6-8.5); Neutrophils Absolute Auto 7.1 K/mm3 (1.3-6.7); Neutrophils Percent Auto 83.4 % (45.5-73.1); Platelet Count Result 176 k/mm3 (150-375); Red Blood Count 2.72 M/mm3 (4.2-5.4); White Blood Count 8.5 K/mm3 (4.5-10.0)
[2024-01-11 04:52] LABS: Alanine Aminotransferase 21 U/L (6-35); Albumin Level 3.2 g/dL (3.5-5.1); Alkaline Phosphatase 88 U/L (38-126); Anion Gap 7 mmol/L (4-12); Aspartate Amino Transferase 78 U/L (14-36); Bilirubin,Total 0.7 mg/dL (0.2-1.3); Blood Urea Nitrogen 43 mg/dL (7-17); Calcium 7.3 mg/dL (8.4-10.2); Carbon Dioxide 37 mmol/L (22-30); Chloride 95 mmol/L (98-107); Estimated CRCL calculation 15 ml/min; Estimated Glomerular Filt Rate 13; Glucose 363 mg/dL (65-110); Magnesium 1.6 mg/dL (1.6-2.3); Phosphorus 3.6 mg/dL (2.5-4.5); Potassium 3.7 mmol/L (3.4-5.0); Sodium 139 mmol/L (137-145)
[2024-01-11 05:20] LABS: Alveolar/Arterial O2 Gradient 22.5 mmHg; Base Excess ABG 8.4 mEq/l (+/-2.0); Carboxyhemoglobin 0.7 % THb (0-2.0); Fractional Inspired Oxygen 21 %; HCO3 ABG 29.7 mEq/l (22.0-26.0); Methemoglobin ABG 0.3 %THb (0-1.5); Oxygen Saturation ABG 97.4 % (95.0-100.0); Oxyhemoglobin 95.3 % THb (90.0-100.0); PO2 ABG 77.2 mmHg (80.0-100.0); PO2 FiO2 Ratio Arterial Blood 3.68 %; Reduced Hemoglobin 3.7 %THb (0-5.0); Total Hemoglobin 8.9 g/dL (12.0-18.0)
[2024-01-11 05:21] LABS: Device VENTILATOR; Modified Allen's Test Pass; Site Drawn LEFT BRACHIAL; pH ABG 7.628 (7.350-7.450)
[2024-01-11 05:22] LABS: Arterial Blood Gas PEEP 5 cmH2O; Arterial Blood Gas Tidal Volume 400 ml; Arterial Blood Gas Vent Mode CMV; Arterial Blood Gas Ventilator rate 18 /MIN
[2024-01-11] MEDS: ACETAMINOPHEN 325 MG TABLET 650 MG FEED TUBE ×2 (05:53→14:21)
[2024-01-11] MEDS: INSULIN GLARGINE (*BKC) 100 UNITS/ML 30 UNITS SUB-Q (08:32)
[2024-01-11 08:33] LABS: Glucose Point of Care 316 mg/dl (65-105)
[2024-01-11] MEDS: MAGNESIUM SULF 2 GM/WATER 50ML 2 GM/50 ML BAG IVPB (08:34)
[2024-01-11] MEDS: PANTOPRAZOLE SODIUM IV 40 MG VIAL IV PUSH ×2 (08:34→20:11)
[2024-01-11] MEDS: METOPROLOL TARTRATE 25 MG TABLET FEED TUBE ×2 (08:35→20:10)
[2024-01-11] MEDS: POTASSIUM CHLORIDE 20 MEQ PACKET (FOR LIQUID) 40 MEQ FEED TUBE (08:35)
[2024-01-11] MEDS: MINERAL OIL/WHITE PETROLATUM OINTMENT 1 APPLIC EACH EYE ×2 (08:35→20:11)
[2024-01-11] MEDS: HEPARIN SODIUM 5,000 UNITS/ML VIAL 5000 UNITS SUB-Q ×2 (08:36→20:11)
[2024-01-11] MEDS: cefTRIAXone 2 GM/NS 100 ML 2 GM/100 ML BAG IVPB (08:37)
--- NOTE | 2024-01-11 09:17 | WPDINTPN ---
Progress Note: A&P Assessment and Plan (1) Acute kidney failure: Code(s): N17.9 - Acute kidney failure, unspecified Status: Acute Assessment and Plan: On chronic kidney injury, unknown cause, CT of the abdomen and pelvis did not show any hydronephrosis or urinary obstruction -significant lactic acidosis and metabolic acidosis -patient has a history of diabetes, hypertension which is likely the cause of chronic kidney disease -patient on lisinopril hydrochlorothiazide and metformin at home -patient was given a total of 3 L IV fluid bolus, 1 L in the ER and 2 L in the ICU -sodium bicarb IV pushes x4 in the ICU -patient was started on sodium bicarb infusion after discussing with Nephrology -patient was started on hemodialysis and was dialyzed x 2 days -urine output has improved -continue to monitor urine output, electrolytes and renal function (2) Metabolic acidosis: Code(s): E87.20 - Acidosis, unspecified Status: Acute Assessment and Plan: Patient presented with significant metabolic acidosis and lactic acidosis. This could be combination of septic shock, acute kidney injury but also a possibility of metformin toxicity Patient received hemodialysis on last 2 days. Further dialysis per Nephrology Patient also received bicarb and acidosis has now resolved in fact patient is now alkalotic Monitor (3) Acute respiratory failure: Code(s): J96.00 - Acute respiratory failure, unspecified whether with hypoxia or hypercapnia Status: Acute Assessment and Plan: Patient had an episode of emesis in the ER, given her altered mental status encephalopathy, risk of aspiration with impending respiratory failure patient was intubated on 01/06/2025 -currently on CMV mode of ventilation, peep of 5, 50% FiO2 -ABG reviewed and decrease vent rate to 14 and tidal volume 350 -chest x-ray reviewed -sedation is on hold. Will evaluate for weaning trial as patient mental status improves. (4) Septic shock: Code(s): A41.9 - Sepsis, unspecified organism; R65.21 - Severe sepsis with septic shock Status: Acute Assessment and Plan: Patient hypotensive on presentation Patient was given IV fluid bolus followed by maintenance IV fluids -lactic acid has improved -Levophed weaned off -off IV fluids -source appears to be UTI. Urine and blood cultures are negative till now -continue Rocephin -discontinue stress dose steroids - 01/10 continues to have fever although other markers of infection are improved as normal WBC. Will repeat blood cultures and change Clark catheter (5) Encephalopathy: Code(s): G93.40 - Encephalopathy, unspecified Status: Acute Assessment and Plan: Patient presented with encephalopathy, altered mental status, delirium, confusion -most likely related to uremia, infection, severe acidosis and baseline flow malacia from past stroke -head CT IMPRESSION: 1. No acute intracranial process. 2. 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 3. Additional more diffuse likely age-related mild to moderate diffuse volume loss and mild scattered white matter hypoattenuation consistent with chronic small vessel ischemic disease. TSH and ammonia normal Patient now is off sedation since x 2 days. Still not responsive.. Will continue hold sedatives. Will order EEG (6) Diastolic dysfunction: Code(s): I51.89 - Other ill-defined heart diseases Status: Acute Assessment and Plan: 12/07/2021 echocardiogram: Summary 1. Left ventricular chamber dimension is normal. 2. Left ventricular systolic function is normal, estimated at 65-70%. 3. There is moderately increased left ventricular wall thickness. 4. The left ventricular diastolic function is grade I diastolic dysfunction. 5. E/e' 13 is mildly elevated. 6. Left atrial chamber dimension is mildly enlarged. 7. There is moderate aortic valve sclerosis. 8. There is mild aortic valve stenosis with a peak velocity of 247.83 cm/s, mean gradient of 11 mmHg, and aortic valve area of 1.56 cm2. 9. The mitral valve has severely calcified annulus. 10. No pulmonary hypertension, estimated pulmonary arterial systolic pressure is 21 mmHg. (7) Hyperkalemia: Code(s): E87.5 - Hyperkalemia Status: Acute Assessment and Plan: Patient was treated with calcium gluconate, insulin, dextrose and albuterol. Potassium on admission was 5.7 Patient was dialyzed and hyperkalemia has resolved (8) Insulin dependent diabetes mellitus: Status: Chronic Assessment and Plan: Continue sliding scale insulin Accu-Cheks Increased Lantus does (9) Right hemiparesis: Code(s): G81.91 - Hemiplegia, unspecified affecting right dominant side Status: Acute Assessment and Plan: History of left-sided cerebral hemisphere and CVA, residual mild aphasia and right-sided weakness (10) Seizures: Code(s): R56.9 - Unspecified convulsions Status: Acute Assessment and Plan: Patient has a history of seizures, on p.o. Keppra 500 mg p.o. q.12 hours Continue Keppra IV 500 mg IV q.24 (discuss with pharmacist) Check EEG Plan DVT prophylaxis: Heparin SQ Stress ulcer prophylaxis: Protonix Nutrition: Continue tube feeds Code Status: Full code Critical Care Time Spent: 30 minutes Due to a high probability of clinically significant, life threatening deterioration, the patient required my highest level of preparedness to intervene emergently and I personally spent this critical care time directly and personally managing the patient. This critical care time included obtaining a history; examining the patient; pulse oximetry; ordering and review of studies; arranging urgent treatment with development of a management plan; evaluation of patient's response to treatment; frequent reassessment; and discussions with other providers. It was exclusive of separately billable procedures and treating other patients and teaching time. Please see Assessment and Plan section and the rest of the note for further information on patient assessment and treatment This dictation may have been done utilizing a voice recognition system. Attempts have been made to correct errors. However, there may be uncorrected grammatical, spelling, and recognitions errors present. Subjective Date/time seen: 01/11/24 Overnight events reviewed. febrile Continues to be on mechanical ventilation 21% FiO2 Off vasopressors and sedatives Tolerating tube feeds Improved urine output Other Vitals acceptable Still not awake or responsive Review of Systems Review of Systems: ROS unobtainable: Yes unobtainable due to endotracheal tube, unobtainable due to medical condition and unobtainable due to mental status Exam Narrative: General: Intubated and sedated HEENT:? Pupils are equal, sluggishly reactive to light, sclera is clear, ETT in place Neck:? Supple, right IJ dialysis catheter in place Respiratory:? Coarse breath sounds bilaterally, decreased at bases no wheezing, adequate air entry Cardiac:? S1-S2 normal, regular rate and rhythm, Abdomen:? Soft, nontender, nondistended, hypoactive bowel sounds, old midline surgical scar noted Extremities:? Dry skin, decreased pedal pulses, no edema Neuro:? Patient is intubated, off sedation, PERRL, minimal grimace response to sternal painful stimuli. Skin:? Dry and flaky skin on lower extremities, skin is warm Psych:? Unable to assess at this time Objective Data Vital Signs Vital Signs: Vital Signs - 24 hr 01/10/24 10:00 01/10/24 10:06 01/10/24 10:00 Temperature 38.5 C H Pulse Rate 100 97 96 Respiratory Rate 18 Blood Pressure 104/64 Pulse Oximetry 99 99 Oxygen Delivery Mechanical Ventilation Fraction of Inspired Oxygen 21 01/10/24 10:00 01/10/24 11:58 01/10/24 12:00 Temperature 38.5 C H 38.3 C H Pulse Rate 95 Respiratory Rate 18 Blood Pressure 106/61 Pulse Oximetry 99 99 Oxygen Delivery Mechanical Ventilation Fraction of Inspired Oxygen 21 01/10/24 12:00 01/10/24 12:00 01/10/24 13:59 Temperature 38.3 C H Pulse Rate 95 101 H Respiratory Rate 18 Blood Pressure 141/73 H Pulse Oximetry 100 Oxygen Delivery Fraction of Inspired Oxygen 21 01/10/24 14:00 01/10/24 14:20 01/10/24 14:42 Temperature 38.4 C H Pulse Rate 102 H 103 H Respiratory Rate Blood Pressure Pulse Oximetry 100 Oxygen Delivery Mechanical Ventilation Fraction of Inspired Oxygen 21 01/10/24 16:00 01/10/24 15:42 01/10/24 16:00 Temperature 38.6 C H 38.6 C H Pulse Rate 100 100 Respiratory Rate 18 Blood Pressure 116/69 Pulse Oximetry 98 Oxygen Delivery Fraction of Inspired Oxygen 01/10/24 17:30 01/10/24 16:00 01/10/24 16:00 Temperature Pulse Rate 106 H Respiratory Rate 18 Blood Pressure Pulse Oximetry 100 100 Oxygen Delivery Mechanical Ventilation Mechanical Ventilation Fraction of Inspired Oxygen 21 21 21 01/10/24 18:00 01/10/24 18:00 01/10/24 20:04 Temperature 38.4 C H Pulse Rate 108 H 108 H 106 H Respiratory Rate 18 Blood Pressure 149/81 H Pulse Oximetry 100 Oxygen Delivery Fraction of Inspired Oxygen 01/10/24 20:49 01/10/24 20:00 01/10/24 20:00 Temperature 38.7 C H 38.6 C H Pulse Rate 105 H Respiratory Rate 18 Blood Pressure 156/81 H Pulse Oximetry 99 Oxygen Delivery Fraction of Inspired Oxygen 21 01/10/24 20:00 01/10/24 20:25 01/10/24 22:05 Temperature 38.7 C H Pulse Rate 108 H Respiratory Rate Blood Pressure Pulse Oximetry 99 100 Oxygen Delivery Mechanical Ventilation Mechanical Ventilation Fraction of Inspired Oxygen 21 21 01/10/24 23:00 01/10/24 22:00 01/11/24 00:00 Temperature 38.7 C H Pulse Rate 96 98 Respiratory Rate 18 Blood Pressure 114/71 Pulse Oximetry 98 98 99 Oxygen Delivery Mechanical Ventilation Mechanical Ventilation Fraction of Inspired Oxygen 21 21 01/11/24 00:00 01/11/24 00:00 01/10/24 20:00 Temperature 38.7 C H Pulse Rate 95 105 H Respiratory Rate 18 Blood Pressure 137/87 Pulse Oximetry 95 Oxygen Delivery Fraction of Inspired Oxygen 21 01/10/24 22:00 01/11/24 00:00 01/11/24 02:30 Temperature Pulse Rate 98 95 96 Respiratory Rate Blood Pressure Pulse Oximetry 99 Oxygen Delivery Mechanical Ventilation Fraction of Inspired Oxygen 21 01/11/24 02:00 01/11/24 02:00 01/11/24 04:30 Temperature 38.7 C H Pulse Rate 102 H 102 H 101 H Respiratory Rate 15 Blood Pressure 129/68 Pulse Oximetry 99 Oxygen Delivery Fraction of Inspired Oxygen 01/11/24 04:00 01/11/24 04:30 01/11/24 05:32 Temperature 38.5 C H 38.4 C H Pulse Rate 102 H 101 H 99 Respiratory Rate 18 18 Blood Pressure 164/85 H 178/85 H Pulse Oximetry 100 100 100 Oxygen Delivery Mechanical Ventilation Fraction of Inspired Oxygen 21 01/11/24 04:00 01/11/24 04:00 01/11/24 05:53 Temperature 38.7 C H Pulse Rate Respiratory Rate Blood Pressure Pulse Oximetry 100 Oxygen Delivery Mechanical Ventilation Fraction of Inspired Oxygen 21 21 01/11/24 04:00 01/11/24 06:00 01/11/24 06:00 Temperature 38.7 C H Pulse Rate 101 H 98 98 Respiratory Rate 14 Blood Pressure 158/78 H Pulse Oximetry 100 Oxygen Delivery Fraction of Inspired Oxygen 01/11/24 05:40 01/11/24 06:53 01/11/24 08:35 Temperature 38.7 C H Pulse Rate 98 94 Respiratory Rate Blood Pressure Pulse Oximetry 100 Oxygen Delivery Mechanical Ventilation Fraction of Inspired Oxygen 21 01/11/24 08:41 01/11/24 08:44 Temperature Pulse Rate 94 Respiratory Rate Blood Pressure Pulse Oximetry 98 98 Oxygen Delivery Mechanical Ventilation Mechanical Ventilation Fraction of Inspired Oxygen 21 21 Intake/Output Intake/Output: Intake & Output 01/08/24 01/09/24 01/10/24 01/11/24 23:59 23:59 23:59 23:59 Intake Total 3465.7 3123.6667 1384 919 Output Total 110 1930 3175 1475 Balance 3355.7 9743.6667 -1791 -556 Meds/Results Medications: Active Medications Generic Name Dose Route Start Last Admin Trade Name Freq PRN Reason Stop Dose Admin Acetaminophen 650 mg 01/10/24 08:02 01/11/24 05:53 Acetaminophen 325 Mg Tablet FEED TUBE 650 mg Q6H PRN Administration Mild Pain (1-3) or Fever Dextrose 12.5 gm 01/07/24 13:18 Dextrose 50% 25 Gm/50 Ml Syringe IV PUSH PRN PRN Hypoglycemia Protocol Glucagon 1 mg 01/07/24 13:18 Glucagon For Inj 1 Mg Vial IM PRN PRN Hypoglycemia Protocol Glucose 15 gm 01/07/24 13:18 Glucose Oral Gel 15 Gm Of Glucse In 37.5 Gm Tube PO PRN PRN Hypoglycemia Protocol Heparin Sodium (Porcine) 5,000 units 01/07/24 21:00 01/11/24 08:36 Heparin Sodium 5,000 Units/Ml Vial SUB-Q 5,000 units Q12HR CARMELA Administration Dextrose 1,000 mls @ 100 mls/hr 01/07/24 13:18 Dextrose 5% 1,000 Ml IVPB PRN PRN Hypoglycemia Protocol Albumin Human 50 mls @ 999 mls/hr 01/07/24 17:11 Albutein IVPB 02/06/24 17:10 Q10M PRN HYPOTENSION Levetiracetam 500 mg in 100 mls @ 400 mls/hr 01/07/24 21:00 01/10/24 22:15 Keppra Iv IVPB Infused Q24H CARMELA Infusion Ceftriaxone Sodium 2 gm in 100 mls @ 200 mls/hr 01/08/24 12:30 01/11/24 08:37 Rocephin 2 Gm/Ns 100 Ml IVPB 200 mls/hr DAILY CARMELA Administration Magnesium Sulfate 2 gm in 50 mls @ 25 mls/hr 01/11/24 08:14 01/11/24 08:34 Magnesium Sulf 2 Gm/Water 50ml IVPB 01/11/24 10:13 25 mls/hr ONCE ONE Administration Insulin Aspart 4 - 8 units 01/10/24 07:55 01/11/24 08:31 Insulin Aspart (*Bkc) 100 Units/Ml SUB-Q 6 units Q4H CARMELA Administration Protocol Insulin Glargine 30 units 01/11/24 09:00 01/11/24 08:32 Insulin Glargine (*Bkc) 100 Units/Ml SUB-Q 30 units QAM CARMELA Administration Labetalol HCl 20 mg 01/08/24 14:39 01/11/24 04:30 Labetalol Hcl Inj 100 Mg/20 Ml Vial IV PUSH 20 mg Q4H PRN Administration Hypertension Metoprolol Tartrate 25 mg 01/10/24 09:00 01/11/24 08:35 Metoprolol Tartrate 25 Mg Tablet FEED TUBE 25 mg Q12HR CARMELA Administration Multi-Ingred Cream/Lotion/Oil/Oint 1 applic 01/07/24 21:00 01/11/24 08:35 Mineral Oil/White Petrolatum Ointment EACH EYE 1 applic Q12HR CARMELA Administration Pantoprazole Sodium 40 mg 01/07/24 21:00 01/11/24 08:34 Pantoprazole Sodium Iv 40 Mg Vial IV PUSH 40 mg Q12HR CARMELA Administration Radiology Results: ITS Impressions Head CT 01/07/24 13:41 IMPRESSION: 1. No acute intracranial process. 2. 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 3. Additional more diffuse likely age-related mild to moderate diffuse volume loss and mild scattered white matter hypoattenuation consistent with chronic small vessel ischemic disease. Abdomen/Pelvis CT 01/07/24 16:52 IMPRESSION: No acute abdominopelvic process. Specifically, there is no CT evidence of bowel obstruction. No definite evidence of renal injury, noting that low-grade renal injury as can be difficult to detect without contrast. Renal Ultrasound 01/08/24 10:47 IMPRESSION: 1. Normal kidney sizes. No hydronephrosis. Chest X-Ray 01/11/24 06:26 Impression: Support tubes, as above. Probable basilar atelectatic change. Labs Labs: Laboratory Results - last 24 hr 01/10/24 01/10/24 01/10/24 11:40 13:58 16:08 WBC RBC Hgb Hct MCV MCH MCHC RDW Plt Count MPV Immature Gran % (Auto) Neut % (Auto) Lymph % (Auto) [place] % (Auto) Eos % (Auto) Baso % (Auto) Lymph # (Auto) [place] # (Auto) Eos # (Auto) Baso # (Auto) Abs Immat Gran (auto) Absolute Neuts (auto) Absolute Nucleated RBC Nucleated RBC % Puncture Site ABG pH ABG pCO2 ABG pO2 ABG PO2/FiO2 Ratio ABG HCO3 ABG O2 Saturation ABG O2 Content ABG Base Excess A-a Gradient Oxyhemoglobin Carboxyhemoglobin Methemoglobin Reduced Hemoglobin Total Hemoglobin O2 Delivery Device O2 Liters/Min Minute Volume Vent Rate Vent Mode FiO2 Tidal Volume PEEP Peak Inspir Pressure Pressure Support Sodium 139 Potassium 3.2 L Chloride 94 L Carbon Dioxide 37 H Anion Gap 8 BUN 37 H Creatinine 3.50 H Estim Creat Clear Calc 15 Estimated GFR 13 L Glucose 327 H POC Capillary Glucose 352 H 327 H Calcium 7.6 L Phosphorus 1.9 L Magnesium Total Bilirubin AST ALT Alkaline Phosphatase Total Protein Albumin 01/10/24 01/10/24 01/10/24 16:09 19:44 23:51 WBC RBC Hgb Hct MCV MCH MCHC RDW Plt Count MPV Immature Gran % (Auto) Neut % (Auto) Lymph % (Auto) [place] % (Auto) Eos % (Auto) Baso % (Auto) Lymph # (Auto) [place] # (Auto) Eos # (Auto) Baso # (Auto) Abs Immat Gran (auto) Absolute Neuts (auto) Absolute Nucleated RBC Nucleated RBC % Puncture Site ABG pH ABG pCO2 ABG pO2 ABG PO2/FiO2 Ratio ABG HCO3 ABG O2 Saturation ABG O2 Content ABG Base Excess A-a Gradient Oxyhemoglobin Carboxyhemoglobin Methemoglobin Reduced Hemoglobin Total Hemoglobin O2 Delivery Device O2 Liters/Min Minute Volume Vent Rate Vent Mode FiO2 Tidal Volume PEEP Peak Inspir Pressure Pressure Support Sodium Potassium Chloride Carbon Dioxide Anion Gap BUN Creatinine Estim Creat Clear Calc Estimated GFR Glucose POC Capillary Glucose 323 H 272 H 325 H Calcium Phosphorus Magnesium Total Bilirubin AST ALT Alkaline Phosphatase Total Protein Albumin 01/11/24 01/11/24 01/11/24 04:17 04:20 04:36 WBC 8.5 RBC 2.72 L Hgb 8.0 L Hct 24.7 L MCV 90.8 MCH 29.4 MCHC 32.4 RDW 14.0 Plt Count 176 MPV 11.3 H Immature Gran % (Auto) 0.5 Neut % (Auto) 83.4 H Lymph % (Auto) 12.3 L [place] % (Auto) 3.5 Eos % (Auto) 0.1 Baso % (Auto) 0.2 Lymph # (Auto) 1.04 [place] # (Auto) 0.3 Eos # (Auto) 0.0 Baso # (Auto) 0.0 Abs Immat Gran (auto) 0.04 H Absolute Neuts (auto) 7.1 H Absolute Nucleated RBC 0.000 Nucleated RBC % 0.0 Puncture Site Left brachial ABG pH 7.628 H* ABG pCO2 29.0 L ABG pO2 77.2 L ABG PO2/FiO2 Ratio 3.68 ABG HCO3 29.7 H ABG O2 Saturation 97.4 ABG O2 Content 12.0 L ABG Base Excess 8.4 A-a Gradient 22.5 Oxyhemoglobin 95.3 Carboxyhemoglobin 0.7 Methemoglobin 0.3 Reduced Hemoglobin 3.7 Total Hemoglobin 8.9 L O2 Delivery Device Ventilator O2 Liters/Min Not Reportable Minute Volume Not Reportable Vent Rate 18 Vent Mode Cmv FiO2 21 Tidal Volume 400 PEEP 5 Peak Inspir Pressure Not Reportable Pressure Support Not Reportable Sodium 139 Potassium 3.7 Chloride 95 L Carbon Dioxide 37 H Anion Gap 7 BUN 43 H Creatinine 3.60 H Estim Creat Clear Calc 15 Estimated GFR 13 L Glucose 363 H POC Capillary Glucose 339 H Calcium 7.3 L Phosphorus 3.6 Magnesium 1.6 Total Bilirubin 0.7 AST 78 H ALT 21 Alkaline Phosphatase 88 Total Protein 6.0 L Albumin 3.2 L 01/11/24 08:30 WBC RBC Hgb Hct MCV MCH MCHC RDW Plt Count MPV Immature Gran % (Auto) Neut % (Auto) Lymph % (Auto) [place] % (Auto) Eos % (Auto) Baso % (Auto) Lymph # (Auto) [place] # (Auto) Eos # (Auto) Baso # (Auto) Abs Immat Gran (auto) Absolute Neuts (auto) Absolute Nucleated RBC Nucleated RBC % Puncture Site ABG pH ABG pCO2 ABG pO2 ABG PO2/FiO2 Ratio ABG HCO3 ABG O2 Saturation ABG O2 Content ABG Base Excess A-a Gradient Oxyhemoglobin Carboxyhemoglobin Methemoglobin Reduced Hemoglobin Total Hemoglobin O2 Delivery Device O2 Liters/Min Minute Volume Vent Rate Vent Mode FiO2 Tidal Volume PEEP Peak Inspir Pressure Pressure Support Sodium Potassium Chloride Carbon Dioxide Anion Gap BUN Creatinine Estim Creat Clear Calc Estimated GFR Glucose POC Capillary Glucose 316 H Calcium Phosphorus Magnesium Total Bilirubin AST ALT Alkaline Phosphatase Total Protein Albumin Quality VTE Prophylaxis VTE prophylaxis: mechanical ordered and pharmacologic ordered
[2024-01-11 11:41] LABS: Glucose Point of Care 281 mg/dl (65-105)
--- NOTE | 2024-01-11 11:44 | PCFNICU ---
ICU Rounding Note: Pt current nutrition is Nepro at 40 ml/hr. Last recorded weight is 80.8 kg, up from 79.5 kg on admit Bowel Motility: +BM reported 01/10 Labs Reviewed: Glu 363,Cr 3.6,BUN 43, GFR 13, Alb 3.2,Hct 24.7, Hgb 8.0 Meds Noted: Rocephin, NovoLog, Lantus Skin: WNL Additional Notes: Patient remains on tube feedings of Nepro at 40 ml/hr. Tube feedings are being tolerating. Patient remains on mechanical vent with no sedation. Discussions in rounds regarding possible EEG. Monitoring tube feeding tolerance, labs, weights, output, plan of care Follow up daily in rounds, reassess Monday and Monday.
--- NOTE | 2024-01-11 12:12 | P.PNNP_ITS ---
Progress Note: A&P Assessment and Plan (1) Acute kidney failure: Code(s): N17.9 - Acute kidney failure, unspecified Status: Acute Assessment and Plan: * baseline creatinine not known * reported has some underlying renal insufficiency/CKD per family * complicated by severe acidosis and hyperkalemia on admission * etiology likely multifactorial: * infection/sepsis * hemodynamic instability/shock * SRINIVAS-I + HCTZ use prior to admission * possible prerenal factors * metformin use prior to admission * continued BP medications prior to admission * s/p aggressive IVF resuscitation * multiple pushes of IV bicarb on admission * evaluation to date noted: * CT of abd/pelvis and renal ultrasound negative for obstruction * urine eosinophils negative * CPK normal * urine electrolytes non-prerenal * UA suggestive of infection * proteinuria noted * NURSE EXAMINER/HD on 01/06 and 01/07 more so for clearance of uremic toxins and treatment of acidosis * holding HD at this time (no critical electrolytes, stable acid-base status, and reasonable urine output) * given lack of improvement in mentation, consider dialysis for clearance of uremic toxins... * follow repeat labs and UOP for evidence of renal recovery (2) Septic shock: Code(s): A41.9 - Sepsis, unspecified organism; R65.21 - Severe sepsis with septic shock Status: Acute Assessment and Plan: * initially normotensive on presentation * however, worsening hypotension in the ER * s/p aggressive IVF resuscitation * presumsed source = aspiration pneumonia + UTI * follow culture data * on empiric antibiotics * vasopressor therapy to maintain MAP - weaned off * follow trend of hemodynamics (3) Acute respiratory failure: Code(s): J96.00 - Acute respiratory failure, unspecified whether with hypoxia or hypercapnia Status: Acute Assessment and Plan: * due to AMS + emesis and concerns for aspiration and inability to protect airway * intubated and on mechanical ventilation * continue ventilator support - off sedation * weaning as tolerated once mentation improves (4) Acidosis: Code(s): E87.20 - Acidosis, unspecified Status: Acute Assessment and Plan: * resolved * due to a combination of CARMEN, lactic acidosis, and sepsis on admission * s/p multiple pushes of IV bicarb on admission to ICU * NURSE EXAMINER/dialysis x 2 sesssions to help correct acidosis * was also on bicarb gtt and oral bicarbonate -- weaned off * lactic acid has normalized * continue supportive care (5) Hyperkalemia: Code(s): E87.5 - Hyperkalemia Status: Acute Assessment and Plan: * resolved * due to CARMEN/ARF * s/p medical management in the ER * dialysis further corrected/stabilized * follow trend of repeat K+ levels (6) Encephalopathy: Code(s): G93.40 - Encephalopathy, unspecified Status: Acute Assessment and Plan: * as noted by presentation of altered mental status, delirium, and confusion * presumably related to uremia, infection, along with severe acidosis * TSH and ammonia levels noted * despite being off sedation, not waking up * consider dialysis again for clearance of uremic toxins and possible left over sedative medications * follow mentation (7) Insulin dependent diabetes mellitus: Status: Chronic Assessment and Plan: * holding metformin * follow accu-cheks * glycemic control per hospitalists/car greaser Will continue to follow. Subjective Date/time seen: 01/11/24 12:12 Interval history: Follow-up for acute kidney injury/acute renal failure (on chronic kidney disease??). Continues to have on and off fevers for the last 48 hours; renal function/creatinine a tab worse but contines to make good urine with stable electrolytes and resolution of previous acidosis (now alkalotic); remains intubated and on mechanical ventilation; off sedation and vasopressor therapy with stable hemodynamics but remains unresponsive and not waking up; no other issues/events overnight or earlier this morning. Exam Narrative: General: somewhat ill appearing female intubated and on mechanical ventilation Heart: normal S1 and S2; no rub Lungs: coarse breath sounds Abdomen: soft, nontender, nondistended, hypoactive bowel sounds Extremities: no cyanosis or clubbing; no edema Skin: no rash Objective Data Vital Signs Vital Signs: Vital Signs Temp Pulse Resp BP Pulse Ox O2 Del Method FiO2 01/11/24 11:23 94 98 Mechanical Ventilation 01/11/24 10:00 100.9 F H 92 14 127/70 91 01/11/24 08:44 98 Mechanical Ventilation 01/11/24 08:41 94 98 Mechanical Ventilation 01/11/24 08:35 94 01/11/24 06:53 101.6 F H 01/11/24 05:40 98 100 Mechanical Ventilation 01/11/24 06:00 101.7 F H 98 14 158/78 H 100 01/11/24 06:00 98 01/11/24 04:00 101 H 01/11/24 05:53 101.7 F H 01/11/24 04:00 100 Mechanical Ventilation 01/11/24 04:00 21 01/11/24 05:32 99 100 Mechanical Ventilation 01/11/24 04:30 101.2 F H 101 H 18 178/85 H 100 01/11/24 04:00 101.3 F H 102 H 18 164/85 H 100 01/11/24 04:30 101 H 01/11/24 02:00 101.7 F H 102 H 15 129/68 99 01/11/24 02:00 102 H 01/11/24 02:30 96 99 Mechanical Ventilation 01/11/24 00:00 95 01/10/24 22:00 98 01/10/24 20:00 105 H 01/11/24 00:00 101.6 F H 95 18 137/87 95 01/11/24 00:00 21 01/11/24 00:00 99 Mechanical Ventilation 01/10/24 22:00 101.7 F H 98 18 114/71 98 01/10/24 23:00 96 98 Mechanical Ventilation 01/10/24 22:05 101.7 F H 01/10/24 20:25 108 H 100 Mechanical Ventilation 01/10/24 20:00 99 Mechanical Ventilation 01/10/24 20:00 21 01/10/24 20:00 101.5 F H 105 H 18 156/81 H 99 01/10/24 20:49 101.7 F H 01/10/24 20:04 106 H 01/10/24 18:00 101.2 F H 108 H 18 149/81 H 100 01/10/24 18:00 108 H 01/10/24 16:00 21 01/10/24 16:00 18 100 Mechanical Ventilation 21 01/10/24 17:30 106 H 100 Mechanical Ventilation 01/10/24 16:00 100 01/10/24 15:42 101.4 F H 01/10/24 16:00 101.4 F H 100 18 116/69 98 01/10/24 14:42 101.1 F H 01/10/24 14:20 103 H 100 Mechanical Ventilation 01/10/24 14:00 102 H 01/10/24 13:59 100.9 F H 101 H 18 141/73 H 100 Intake/Output Intake/Output: Intake & Output 01/08/24 01/09/24 01/10/24 01/11/24 23:59 23:59 23:59 23:59 Intake Total 3465.7 3123.6663 1384 919 Output Total 110 1930 3175 1475 Balance 3355.7 7723.6671 -1791 -556 Meds/Results Medications: Active Medications Generic Name Dose Route Start Last Admin Trade Name Freq PRN Reason Stop Dose Admin Acetaminophen 650 mg 01/10/24 08:02 01/11/24 05:53 Acetaminophen 325 Mg Tablet FEED TUBE 650 mg Q6H PRN Administration Mild Pain (1-3) or Fever Dextrose 12.5 gm 01/07/24 13:18 Dextrose 50% 25 Gm/50 Ml Syringe IV PUSH PRN PRN Hypoglycemia Protocol Glucagon 1 mg 01/07/24 13:18 Glucagon For Inj 1 Mg Vial IM PRN PRN Hypoglycemia Protocol Glucose 15 gm 01/07/24 13:18 Glucose Oral Gel 15 Gm Of Glucse In 37.5 Gm Tube PO PRN PRN Hypoglycemia Protocol Heparin Sodium (Porcine) 5,000 units 01/07/24 21:00 01/11/24 08:36 Heparin Sodium 5,000 Units/Ml Vial SUB-Q 5,000 units Q12HR CARMELA Administration Dextrose 1,000 mls @ 100 mls/hr 01/07/24 13:18 Dextrose 5% 1,000 Ml IVPB PRN PRN Hypoglycemia Protocol Albumin Human 50 mls @ 999 mls/hr 01/07/24 17:11 Albutein IVPB 02/06/24 17:10 Q10M PRN HYPOTENSION Levetiracetam 500 mg in 100 mls @ 400 mls/hr 01/07/24 21:00 01/10/24 22:15 Keppra Iv IVPB Infused Q24H CARMELA Infusion Ceftriaxone Sodium 2 gm in 100 mls @ 200 mls/hr 01/08/24 12:30 01/11/24 08:37 Rocephin 2 Gm/Ns 100 Ml IVPB 200 mls/hr DAILY CARMELA Administration Insulin Aspart 4 - 8 units 01/10/24 07:55 01/11/24 11:41 Insulin Aspart (*Bkc) 100 Units/Ml SUB-Q 5 units Q4H CARMELA Administration Protocol Insulin Glargine 30 units 01/11/24 09:00 01/11/24 08:32 Insulin Glargine (*Bkc) 100 Units/Ml SUB-Q 30 units QAM CARMELA Administration Labetalol HCl 20 mg 01/08/24 14:39 01/11/24 04:30 Labetalol Hcl Inj 100 Mg/20 Ml Vial IV PUSH 20 mg Q4H PRN Administration Hypertension Metoprolol Tartrate 25 mg 01/10/24 09:00 01/11/24 08:35 Metoprolol Tartrate 25 Mg Tablet FEED TUBE 25 mg Q12HR CARMELA Administration Multi-Ingred Cream/Lotion/Oil/Oint 1 applic 01/07/24 21:00 01/11/24 08:35 Mineral Oil/White Petrolatum Ointment EACH EYE 1 applic Q12HR CARMELA Administration Pantoprazole Sodium 40 mg 01/07/24 21:00 01/11/24 08:34 Pantoprazole Sodium Iv 40 Mg Vial IV PUSH 40 mg Q12HR CARMELA Administration Radiology Results: ITS Impressions Head CT 01/07/24 13:41 IMPRESSION: 1. No acute intracranial process. 2. 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 3. Additional more diffuse likely age-related mild to moderate diffuse volume loss and mild scattered white matter hypoattenuation consistent with chronic small vessel ischemic disease. Abdomen/Pelvis CT 01/07/24 16:52 IMPRESSION: No acute abdominopelvic process. Specifically, there is no CT evidence of bowel obstruction. No definite evidence of renal injury, noting that low-grade renal injury as can be difficult to detect without contrast. Renal Ultrasound 01/08/24 10:47 IMPRESSION: 1. Normal kidney sizes. No hydronephrosis. Chest X-Ray 01/11/24 06:26 Impression: Support tubes, as above. Probable basilar atelectatic change. Labs Labs: Laboratory Tests 01/11/24 04:20 01/11/24 04:20 Calcium 7.3 L Phosphorus 3.6 Magnesium 1.6 Total Bilirubin 0.7 AST 78 H ALT 21 Alkaline Phosphatase 88 Total Protein 6.0 L Albumin 3.2 L Microbiology 01/09/24 09:32 Sputum Sputum Culture - Preliminary
[2024-01-11] MEDS: amLODIPine BESYLATE 10 MG TABLET FEED TUBE (14:21)
[2024-01-11 16:48] LABS: Glucose Point of Care 285 mg/dl (65-105)
[2024-01-11 20:08] LABS: Glucose Point of Care 285 mg/dl (65-105)
[2024-01-11] MEDS: levETIRAcetam 500MG/NACL 100ML 500 MG/100 ML BAG 400 MG IVPB (20:11)
[2024-01-12] VITALS (45 sets, daily range): BP systolic 78–191; BP diastolic 51–92; PULSE 77–102; RESP 14–22; TEMP 36.5–38.7; O2SAT 98–100
--- NOTE | 2024-01-12 | ECHO_ITS ---
Patient Info Name: Rafaela Hale Age: 63 years : 1960 Gender: Female Ht: 66 in Wt: 140 lbs BSA: 1.72 m2 HR: 110 bpm Technical Quality: Good Exam Date: 01/12/2024 4:35 PM Exam Location: Echo Lab Patient Status: Inpatient Admit Date: 01/07/2024 Staff Ordering Physician: Maynor Mallory MD Manager Interface: Niya Lynn RDCS Attending Provider: Joselito Vines MD Exam Type: CA echo doppler color flow Study Info Indications - new stroke Complete two-dimensional, color flow and Doppler transthoracic echocardiogram is performed with agitated saline. Summary 1. Left ventricular systolic function is normal, estimated at 60-65%. 2. There is moderately increased left ventricular wall thickness. 3. Intact interatrial septum visualized by agitated saline imaging. 4. There is mild aortic valve calcification. 5. There is mild aortic valve stenosis with a peak velocity of 190 cm/s, mean gradient of 8 mmHg, and aortic valve area of 1.8 cm2. 6. There is mild tricuspid valve regurgitation. 7. Mild pulmonary hypertension, estimated pulmonary arterial systolic pressure is 46 mmHg. Left Ventricle Left ventricular chamber dimension is normal. Left ventricular systolic function is normal, estimated at 60-65%. There is moderately increased left ventricular wall thickness. Left ventricular septal wall motion is normal. The left ventricular diastolic function is abnormal. Right Ventricle Right ventricular chamber dimension is normal. Right ventricular systolic function is normal. Left Atria Left atrial chamber dimension is normal. Right Atria Right atrial chamber dimension is normal. Atrial Septum Intact interatrial septum visualized by agitated saline imaging. Aortic Valve The aortic valve is trileaflet. There is no aortic valve sclerosis. There is mild aortic valve stenosis with a peak velocity of 190 cm/s, mean gradient of 8 mmHg, and aortic valve area of 1.8 cm2. There is no aortic valve regurgitation. There is mild aortic valve calcification. Pulmonic Valve The pulmonic valve is normal. There is no pulmonic valve stenosis. There is no pulmonic regurgitation. Mitral Valve The mitral valve has normal leaflets. There is no mitral valve stenosis. There is no mitral valve regurgitation. There is no mitral valve calcification. The mitral valve annulus is mildly calcified. Tricuspid Valve The tricuspid valve leaflets are normal. There is no significant tricuspid valve stenosis. There is mild tricuspid valve regurgitation. Mild pulmonary hypertension, estimated pulmonary arterial systolic pressure is 46 mmHg. Pericardium/Pleural The pericardium appears normal. There is no pericardial effusion. Inferior Vena Cava Normal inferior vena cava with >50% collapse upon inspiration consistent with normal right atrial pressure, 10 mmHg. Aorta The aortic root size at the sinus of Valsalva is normal. The prox ascending aorta size is normal. Left Ventricular Outflow Tract Name Value Normal LVOT 2D LVOT Diameter 1.9 cm LVOT Doppler LVOT Peak Gradient 4 mmHg LVOT Mean Gradient 2 mmHg LVOT VTI 25 cm LVOT VTI/AV VTI Ratio 0.7 LVOT Stroke Volume 71 ml LVOT CO 6.1 l/min LVOT CI 3.6 l/min/m2 Mitral Valve Name Value Normal MV Doppler MV Decel Comanche 470 cm/s2 MV PHT 49 ms MV Area (PHT) 4.5 cm2 4.0-5.0 MV Diastolic Function MV E Peak Velocity 79 cm/s MV A Peak Velocity 139 cm/s MV E/A 0.6 MV Decel Time 169 ms MV Annular TDI MV E/e' (Septal) 23.0 <=8.0 MV E/e' (Lateral) 12.1 <=8.0 MV E/e' (Average) 17.6 Tricuspid Valve Name Value Normal TV Regurgitation Doppler TR Peak Velocity 298 cm/s TR Peak Gradient 36 mmHg Estimated PAP/RSVP RA Pressure 10 mmHg <=5 PA Systolic Pressure 46 mmHg <36 RV Systolic Pressure 46 mmHg <36 Aortic Valve Name Value Normal AV Doppler AV Peak Velocity 190 cm/s AV Peak Gradient 14 mmHg AV Mean Gradient 8 mmHg AV VTI 38 cm AV Area (Cont Eq VTI) 1.8 cm2 >=3.0 AV Area (Cont Eq Marcello) 1.6 cm2 AV Regurgitation 2D LVOT Area 2.8 cm2 Ventricles Name Value Normal LV Dimensions 2D/MM IVS Diastolic Thickness (2D) 1.3 cm 0.6-1.0 LVID Diastole (2D) 3.6 cm 3.8-5.2 LVIW Diastolic Thickness (2D) 1.2 cm 0.6-0.9 LVID Systole (2D) 2.0 cm 2.2-3.5 LVOT Diameter 1.9 cm LV Mass (2D Cubed) 152.66 g 67.00-162.00 LV Mass Index (2D Cubed) 89 g/m2 43-95 Relative Wall Thickness (2D) 0.69 LV Fractional Shortening/Ejection Fraction 2D/MM LV Fractional Shortening (2D) 44 % 27-45 LV EF (2D Teicholz) 76 % 54-74 LV Diastolic Volume (4C MOD) 114 ml LV EF (4C MOD) 78 % LV Diastolic Volume (2C MOD) 99 ml LV EF (2C MOD) 66 % LV Diastolic Volume (BP MOD) 110 ml 46-106 LV Diastolic Volume Index (BP MOD) 64 ml/m2 29-61 LV Systolic Volume (BP MOD) 31 ml 14-42 LV Systolic Volume Index (BP MOD) 18 ml/m2 8-24 LV EF (BP MOD) 72 % 54-74 LV Diastolic Length (4C) 8.8 cm LV Systolic Length (4C) 6.0 cm LV Stroke Volume (4C MOD) 89 ml Atria Name Value Normal LA Dimensions LA Volume (4C A-L) 35 ml LA Volume (BP A-L) 29 ml RA Dimensions RA Area (4C) 9.0 cm2 <=18.0 Report Signatures
[2024-01-12 00:43] LABS: Glucose Point of Care 302 mg/dl (65-105)
[2024-01-12] MEDS: INSULIN ASPART (*BKC) 100 UNITS/ML SUB-Q ×5 (00:43→20:29)
[2024-01-12] MEDS: METOPROLOL TARTRATE 25 MG TABLET PO (01:21)
[2024-01-12] MEDS: amLODIPine BESYLATE 5 MG TABLET PO (01:21)
[2024-01-12] MEDS: ACETAMINOPHEN 325 MG TABLET 650 MG FEED TUBE ×2 (01:29→08:20)
[2024-01-12] MEDS: LABETALOL HCL INJ 100 MG/20 ML VIAL 20 MG IV PUSH ×2 (04:05→16:43)
[2024-01-12 04:12] LABS: Glucose Point of Care 304 mg/dl (65-105)
[2024-01-12 04:51] LABS: Alveolar/Arterial O2 Gradient 22.2 mmHg; Base Excess ABG 7.2 mEq/l (+/-2.0); Carboxyhemoglobin 0.6 % THb (0-2.0); Fractional Inspired Oxygen 21 %; HCO3 ABG 30.3 mEq/l (22.0-26.0); Methemoglobin ABG 0.3 %THb (0-1.5); Oxygen Content ABG 13.8 %vol (16.0-22.0); Oxygen Saturation ABG 97.2 % (95.0-100.0); Oxyhemoglobin 95.7 % THb (90.0-100.0); PCO2 ABG 36.7 mmHg (35.0-45.0); PO2 ABG 83.6 mmHg (80.0-100.0); PO2 FiO2 Ratio Arterial Blood 3.98 %; Reduced Hemoglobin 3.4 %THb (0-5.0); Total Hemoglobin 10.2 g/dL (12.0-18.0)
[2024-01-12 04:53] LABS: Modified Allen's Test Pass; Site Drawn LEFT BRACHIAL; pH ABG 7.534 (7.350-7.450)
[2024-01-12 04:54] LABS: Arterial Blood Gas PEEP 5 cmH2O; Arterial Blood Gas Vent Mode CMV; Arterial Blood Gas Ventilator rate 14 /MIN; Device VENTILATOR
[2024-01-12 04:55] LABS: Arterial Blood Gas Tidal Volume 350 ml
[2024-01-12 06:01] LABS: Basophils Percent Auto 0.1 % (0.2-1.2); Eosinophils Percent Auto 0.2 % (0-4.4); Hematocrit 26.6 % (37.0-47.0); Hemoglobin 8.1 g/dL (12.0-15.0); Immature Granulocyte Absolute 0.05 K/mm3 (0.00-0.031); Immature Granulocyte Percent A 0.6 % (0-0.5); Lymphocytes Absolute Auto 0.96 K/mm3 (0.9-3.2); Lymphocytes Percent Auto 11.3 % (18.3-44.2); Mean Corpuscular HGB Conc 30.5 g/dl (32-36); Mean Corpuscular Volume 95.3 fl (80-100); Mean Platelet Volume 10.7 fl (7.4-10.4); Monocytes Absolute Auto 0.4 K/mm3 (0.1-0.6); Monocytes Percent Auto 4.8 % (2.6-8.5); Platelet Count Result 206 k/mm3 (150-375); Red Blood Count 2.79 M/mm3 (4.2-5.4); Red Cell Distribution Width 13.5 % (11.5-14.5); White Blood Count 8.5 K/mm3 (4.5-10.0)
[2024-01-12 06:10] LABS: Magnesium 2.1 mg/dL (1.6-2.3); Phosphorus 3.1 mg/dL (2.5-4.5)
[2024-01-12 06:11] LABS: Alanine Aminotransferase 50 U/L (6-35); Albumin Level 3.3 g/dL (3.5-5.1); Alkaline Phosphatase 93 U/L (38-126); Anion Gap 4 mmol/L (4-12); Aspartate Amino Transferase 72 U/L (14-36); Bilirubin,Total 0.4 mg/dL (0.2-1.3); Blood Urea Nitrogen 51 mg/dL (7-17); Carbon Dioxide 39 mmol/L (22-30); Chloride 98 mmol/L (98-107); Estimated CRCL calculation 14 ml/min; Estimated Glomerular Filt Rate 12; Glucose 312 mg/dL (65-110); Potassium 3.8 mmol/L (3.4-5.0); Sodium 141 mmol/L (137-145)
[2024-01-12 07:43] LABS: Glucose Point of Care 319 mg/dl (65-105)
[2024-01-12] MEDS: amLODIPine BESYLATE 10 MG TABLET FEED TUBE (08:21)
[2024-01-12] MEDS: METOPROLOL TARTRATE 50 MG TAB FEED TUBE ×2 (08:21→20:14)
[2024-01-12] MEDS: HEPARIN SODIUM 5,000 UNITS/ML VIAL 5000 UNITS SUB-Q ×2 (08:22→20:15)
[2024-01-12] MEDS: cefTRIAXone 2 GM/NS 100 ML 2 GM/100 ML BAG IVPB (08:22)
[2024-01-12] MEDS: POTASSIUM CHLORIDE 20 MEQ PACKET (FOR LIQUID) 40 MEQ FEED TUBE (08:22)
[2024-01-12] MEDS: MINERAL OIL/WHITE PETROLATUM OINTMENT 1 APPLIC EACH EYE ×2 (08:22→20:15)
[2024-01-12] MEDS: PANTOPRAZOLE SODIUM IV 40 MG VIAL IV PUSH ×2 (08:23→20:15)
[2024-01-12] MEDS: INSULIN GLARGINE (*BKC) 100 UNITS/ML 45 UNITS SUB-Q (08:36)
--- NOTE | 2024-01-12 09:03 | WPDINTPN ---
Progress Note: A&P Assessment and Plan (1) Acute kidney failure: Code(s): N17.9 - Acute kidney failure, unspecified Status: Acute Assessment and Plan: On chronic kidney injury, unknown cause, CT of the abdomen and pelvis did not show any hydronephrosis or urinary obstruction -significant lactic acidosis and metabolic acidosis -patient has a history of diabetes, hypertension which is likely the cause of chronic kidney disease -patient on lisinopril hydrochlorothiazide and metformin at home -patient was given a total of 3 L IV fluid bolus, 1 L in the ER and 2 L in the ICU -sodium bicarb IV pushes x4 in the ICU -patient was started on sodium bicarb infusion after discussing with Nephrology -patient was started on hemodialysis and was dialyzed x 2 days -urine output has improved - 01/11 plan to dialyze again today -continue to monitor urine output, electrolytes and renal function (2) Metabolic acidosis: Code(s): E87.20 - Acidosis, unspecified Status: Acute Assessment and Plan: Patient presented with significant metabolic acidosis and lactic acidosis. This could be combination of septic shock, acute kidney injury but also a possibility of metformin toxicity Patient received hemodialysis on last 2 days. Further dialysis per Nephrology Patient also received bicarb and acidosis has now resolved in fact patient is now alkalotic Monitor (3) Acute respiratory failure: Code(s): J96.00 - Acute respiratory failure, unspecified whether with hypoxia or hypercapnia Status: Acute Assessment and Plan: Patient had an episode of emesis in the ER, given her altered mental status encephalopathy, risk of aspiration with impending respiratory failure patient was intubated on 01/06/2025 -currently on CMV mode of ventilation, peep of 5, 50% FiO2 -ABG reviewed and continue vent rate to 14 and decrease tidal volume to 300 -chest x-ray reviewed -sedation is on hold. Will evaluate for weaning trial as patient mental status improves. (4) Septic shock: Code(s): A41.9 - Sepsis, unspecified organism; R65.21 - Severe sepsis with septic shock Status: Acute Assessment and Plan: Patient hypotensive on presentation Patient was given IV fluid bolus followed by maintenance IV fluids -lactic acid has improved -Levophed weaned off -off IV fluids -source appears to be UTI. Urine and blood cultures are negative till now -continue Rocephin -discontinue stress dose steroids - 01/10 continues to have fever although other markers of infection are improved as normal WBC. Repeat blood cultures sent and pending Clark catheter change 01/11 Minimal respiratory secretions, sputum cultures growing yeast which is likely a colonization Change Rocephin to cefepime and vancomycin Obtain CT scan (5) Encephalopathy: Code(s): G93.40 - Encephalopathy, unspecified Status: Acute Assessment and Plan: Patient presented with encephalopathy, altered mental status, delirium, confusion -most likely related to uremia, infection, severe acidosis and baseline flow malacia from past stroke -head CT IMPRESSION: 1. No acute intracranial process. 2. 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 3. Additional more diffuse likely age-related mild to moderate diffuse volume loss and mild scattered white matter hypoattenuation consistent with chronic small vessel ischemic disease. TSH and ammonia normal Patient now is off sedation since x 3 days. Still not responsive.. Will continue hold sedatives. EEG ordered and pending Will dialyze patient today to help with drug removal (6) Diastolic dysfunction: Code(s): I51.89 - Other ill-defined heart diseases Status: Acute Assessment and Plan: 12/07/2021 echocardiogram: Summary 1. Left ventricular chamber dimension is normal. 2. Left ventricular systolic function is normal, estimated at 65-70%. 3. There is moderately increased left ventricular wall thickness. 4. The left ventricular diastolic function is grade I diastolic dysfunction. 5. E/e' 13 is mildly elevated. 6. Left atrial chamber dimension is mildly enlarged. 7. There is moderate aortic valve sclerosis. 8. There is mild aortic valve stenosis with a peak velocity of 247.83 cm/s, mean gradient of 11 mmHg, and aortic valve area of 1.56 cm2. 9. The mitral valve has severely calcified annulus. 10. No pulmonary hypertension, estimated pulmonary arterial systolic pressure is 21 mmHg. (7) Hyperkalemia: Code(s): E87.5 - Hyperkalemia Status: Acute Assessment and Plan: Patient was treated with calcium gluconate, insulin, dextrose and albuterol. Potassium on admission was 5.7 Patient was dialyzed and hyperkalemia has resolved (8) Insulin dependent diabetes mellitus: Status: Chronic Assessment and Plan: Continue sliding scale insulin Accu-Cheks Increased Lantus does (9) Right hemiparesis: Code(s): G81.91 - Hemiplegia, unspecified affecting right dominant side Status: Acute Assessment and Plan: History of left-sided cerebral hemisphere and CVA, residual mild aphasia and right-sided weakness (10) Seizures: Code(s): R56.9 - Unspecified convulsions Status: Acute Assessment and Plan: Patient has a history of seizures, on p.o. Keppra 500 mg p.o. q.12 hours Continue Keppra IV 500 mg IV q.24 (discuss with pharmacist) EEG is pending (11) Hypertension: Code(s): I10 - Essential (primary) hypertension Status: Acute Assessment and Plan: Continue metoprolol and amlodipine Add hydralazine Plan DVT prophylaxis: Heparin SQ Stress ulcer prophylaxis: Protonix Nutrition: Continue tube feeds Code Status: Full code Critical Care Time Spent: 32 minutes Due to a high probability of clinically significant, life threatening deterioration, the patient required my highest level of preparedness to intervene emergently and I personally spent this critical care time directly and personally managing the patient. This critical care time included obtaining a history; examining the patient; pulse oximetry; ordering and review of studies; arranging urgent treatment with development of a management plan; evaluation of patient's response to treatment; frequent reassessment; and discussions with other providers. It was exclusive of separately billable procedures and treating other patients and teaching time. Please see Assessment and Plan section and the rest of the note for further information on patient assessment and treatment This dictation may have been done utilizing a voice recognition system. Attempts have been made to correct errors. However, there may be uncorrected grammatical, spelling, and recognitions errors present. Subjective Date/time seen: 01/12/24 Overnight events reviewed. febrile Continues to be on mechanical ventilation 21% FiO2 Off vasopressors and sedatives Tolerating tube feeds Good urine output, had 1 bowel movement Blood pressure elevated Still not awake or responsive Review of Systems Review of Systems: ROS unobtainable: Yes unobtainable due to endotracheal tube, unobtainable due to medical condition and unobtainable due to mental status Exam Narrative: General: Intubated and sedated HEENT:? Pupils are equal, sluggishly reactive to light, sclera is clear, ETT in place Neck:? Supple, right IJ dialysis catheter in place Respiratory:? Coarse breath sounds bilaterally, decreased at bases no wheezing, adequate air entry Cardiac:? S1-S2 normal, regular rate and rhythm, Abdomen:? Soft, nontender, nondistended, hypoactive bowel sounds, old midline surgical scar noted Extremities:? Dry skin, decreased pedal pulses, no edema Neuro:? Patient is intubated, off sedation, PERRL, minimal grimace response to sternal painful stimuli. Opens her eyes on stimulation Skin:? Dry and flaky skin on lower extremities, skin is warm Psych:? Unable to assess at this time Objective Data Vital Signs Vital Signs: Vital Signs - 24 hr 01/11/24 11:23 01/11/24 10:00 01/11/24 10:00 Temperature 38.3 C H Pulse Rate 94 93 92 Respiratory Rate 14 Blood Pressure 127/70 Pulse Oximetry 98 91 Oxygen Delivery Mechanical Ventilation Fraction of Inspired Oxygen 21 01/11/24 14:09 01/11/24 14:21 01/11/24 12:00 Temperature 38.5 C H Pulse Rate 101 H 100 Respiratory Rate Blood Pressure Pulse Oximetry 99 Oxygen Delivery Mechanical Ventilation Fraction of Inspired Oxygen 21 01/11/24 12:00 01/11/24 12:00 01/11/24 12:00 Temperature 38.3 C H Pulse Rate 96 Respiratory Rate 14 Blood Pressure 168/89 H Pulse Oximetry 100 Oxygen Delivery Mechanical Ventilation Fraction of Inspired Oxygen 21 21 01/11/24 14:00 01/11/24 14:00 01/11/24 16:14 Temperature 38.4 C H Pulse Rate 103 H 103 H Respiratory Rate 15 Blood Pressure 187/78 H Pulse Oximetry 99 Oxygen Delivery Mechanical Ventilation Fraction of Inspired Oxygen 21 01/11/24 15:21 01/11/24 16:00 01/11/24 16:00 Temperature 38.1 C H Pulse Rate 88 Respiratory Rate Blood Pressure Pulse Oximetry Oxygen Delivery Mechanical Ventilation Fraction of Inspired Oxygen 21 01/11/24 16:00 01/11/24 16:00 01/11/24 18:00 Temperature 38.0 C H Pulse Rate 91 96 Respiratory Rate 14 Blood Pressure 126/61 Pulse Oximetry 99 Oxygen Delivery Fraction of Inspired Oxygen 21 01/11/24 18:00 01/11/24 18:47 01/11/24 20:10 Temperature 38.0 C H Pulse Rate 98 101 H 96 Respiratory Rate 14 Blood Pressure 161/87 H Pulse Oximetry 99 Oxygen Delivery Fraction of Inspired Oxygen 01/11/24 20:37 01/11/24 20:00 01/11/24 20:00 Temperature 38.1 C H Pulse Rate 95 96 Respiratory Rate 17 Blood Pressure 193/79 H Pulse Oximetry 98 98 Oxygen Delivery Mechanical Ventilation Fraction of Inspired Oxygen 21 21 01/11/24 20:00 01/11/24 21:00 01/11/24 22:00 Temperature 38.3 C H Pulse Rate 91 95 Respiratory Rate 14 15 Blood Pressure 128/66 186/85 H Pulse Oximetry 98 100 99 Oxygen Delivery Mechanical Ventilation Fraction of Inspired Oxygen 21 01/11/24 22:28 01/11/24 22:18 01/11/24 20:00 Temperature 38.3 C H Pulse Rate 98 96 96 Respiratory Rate 16 Blood Pressure 180/86 H Pulse Oximetry 98 Oxygen Delivery Fraction of Inspired Oxygen 01/11/24 22:00 01/11/24 22:58 01/11/24 23:00 Temperature Pulse Rate 95 93 92 Respiratory Rate 18 Blood Pressure 176/71 H Pulse Oximetry 98 98 Oxygen Delivery Mechanical Ventilation Fraction of Inspired Oxygen 21 01/11/24 23:15 01/12/24 00:00 01/12/24 01:21 Temperature 38.4 C H Pulse Rate 92 93 100 Respiratory Rate 14 14 Blood Pressure 142/73 H 183/92 H Pulse Oximetry 100 98 Oxygen Delivery Fraction of Inspired Oxygen 01/12/24 01:29 01/12/24 01:00 01/12/24 00:00 Temperature 38.7 C H 38.6 C H Pulse Rate 96 Respiratory Rate 14 Blood Pressure 191/89 H Pulse Oximetry 99 99 Oxygen Delivery Mechanical Ventilation Fraction of Inspired Oxygen 21 01/12/24 00:00 01/12/24 02:00 01/12/24 00:00 Temperature 38.7 C H Pulse Rate 95 99 Respiratory Rate 14 Blood Pressure 149/80 H Pulse Oximetry 99 Oxygen Delivery Fraction of Inspired Oxygen 21 01/12/24 02:00 01/12/24 02:20 01/12/24 03:00 Temperature 38.6 C H Pulse Rate 95 92 92 Respiratory Rate 14 Blood Pressure 146/63 H Pulse Oximetry 99 99 Oxygen Delivery Mechanical Ventilation Fraction of Inspired Oxygen 21 01/12/24 04:01 01/12/24 04:05 01/12/24 04:00 Temperature 38.7 C H 38.3 C H Pulse Rate 93 91 Respiratory Rate 14 Blood Pressure 177/88 H Pulse Oximetry 99 Oxygen Delivery Fraction of Inspired Oxygen 01/12/24 04:44 01/12/24 04:00 01/12/24 04:00 Temperature Pulse Rate 96 Respiratory Rate Blood Pressure Pulse Oximetry 99 99 Oxygen Delivery Mechanical Ventilation Mechanical Ventilation Fraction of Inspired Oxygen 21 21 21 01/12/24 06:00 01/12/24 04:00 01/12/24 06:00 Temperature 38.3 C H Pulse Rate 95 95 97 Respiratory Rate 14 Blood Pressure 177/88 H Pulse Oximetry 100 Oxygen Delivery Fraction of Inspired Oxygen 01/12/24 08:11 01/12/24 08:20 01/12/24 08:21 Temperature 38.7 C H Pulse Rate 101 H 102 H Respiratory Rate Blood Pressure Pulse Oximetry 99 Oxygen Delivery Mechanical Ventilation Fraction of Inspired Oxygen 21 Intake/Output Intake/Output: Intake & Output 01/09/24 01/10/24 01/11/24 01/12/24 23:59 23:59 23:59 23:59 Intake Total 3123.6667 1384 1666 802 Output Total 1930 3175 2500 1850 Balance 1193.6667 -1791 -834 -1048 Meds/Results Medications: Active Medications Generic Name Dose Route Start Last Admin Trade Name Freq PRN Reason Stop Dose Admin Acetaminophen 650 mg 01/10/24 08:02 01/12/24 08:20 Acetaminophen 325 Mg Tablet FEED TUBE 650 mg Q6H PRN Administration Mild Pain (1-3) or Fever Amlodipine Besylate 10 mg 01/11/24 14:05 01/12/24 08:21 Amlodipine Besylate 10 Mg Tablet FEED TUBE 10 mg DAILY CARMELA Administration Dextrose 12.5 gm 01/07/24 13:18 Dextrose 50% 25 Gm/50 Ml Syringe IV PUSH PRN PRN Hypoglycemia Protocol Glucagon 1 mg 01/07/24 13:18 Glucagon For Inj 1 Mg Vial IM PRN PRN Hypoglycemia Protocol Glucose 15 gm 01/07/24 13:18 Glucose Oral Gel 15 Gm Of Glucse In 37.5 Gm Tube PO PRN PRN Hypoglycemia Protocol Heparin Sodium (Porcine) 5,000 units 01/07/24 21:00 01/12/24 08:22 Heparin Sodium 5,000 Units/Ml Vial SUB-Q 5,000 units Q12HR CARMELA Administration Hydralazine HCl 10 mg 01/12/24 08:00 01/12/24 08:48 Hydralazine 10 Mg Tablet FEED TUBE Not Given Q6H CARMELA Dextrose 1,000 mls @ 100 mls/hr 01/07/24 13:18 Dextrose 5% 1,000 Ml IVPB PRN PRN Hypoglycemia Protocol Albumin Human 50 mls @ 999 mls/hr 01/07/24 17:11 Albutein IVPB 02/06/24 17:10 Q10M PRN HYPOTENSION Levetiracetam 500 mg in 100 mls @ 400 mls/hr 01/07/24 21:00 01/11/24 20:26 Keppra Iv IVPB Infused Q24H CARMELA Infusion Ceftriaxone Sodium 2 gm in 100 mls @ 200 mls/hr 01/08/24 12:30 01/12/24 08:22 Rocephin 2 Gm/Ns 100 Ml IVPB 200 mls/hr DAILY CARMELA Administration Insulin Aspart 4 - 8 units 01/10/24 07:55 01/12/24 08:36 Insulin Aspart (*Bkc) 100 Units/Ml SUB-Q 6 units Q4H CARMELA Administration Protocol Insulin Glargine 45 units 01/12/24 09:00 01/12/24 08:36 Insulin Glargine (*Bkc) 100 Units/Ml SUB-Q 45 units QAM CARMELA Administration Labetalol HCl 20 mg 01/08/24 14:39 01/12/24 04:05 Labetalol Hcl Inj 100 Mg/20 Ml Vial IV PUSH 20 mg Q4H PRN Administration Hypertension Metoprolol Tartrate 50 mg 01/12/24 09:00 01/12/24 08:21 Metoprolol Tartrate 50 Mg Tab FEED TUBE 50 mg Q12HR CARMELA Administration Multi-Ingred Cream/Lotion/Oil/Oint 1 applic 01/07/24 21:00 01/12/24 08:22 Mineral Oil/White Petrolatum Ointment EACH EYE 1 applic Q12HR CARMELA Administration Pantoprazole Sodium 40 mg 01/07/24 21:00 01/12/24 08:23 Pantoprazole Sodium Iv 40 Mg Vial IV PUSH 40 mg Q12HR CARMELA Administration Radiology Results: ITS Impressions Head CT 01/07/24 13:41 IMPRESSION: 1. No acute intracranial process. 2. 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 3. Additional more diffuse likely age-related mild to moderate diffuse volume loss and mild scattered white matter hypoattenuation consistent with chronic small vessel ischemic disease. Abdomen/Pelvis CT 01/07/24 16:52 IMPRESSION: No acute abdominopelvic process. Specifically, there is no CT evidence of bowel obstruction. No definite evidence of renal injury, noting that low-grade renal injury as can be difficult to detect without contrast. Renal Ultrasound 01/08/24 10:47 IMPRESSION: 1. Normal kidney sizes. No hydronephrosis. Chest X-Ray 01/12/24 06:54 Impression: Possible minimal left basilar atelectatic change. Support tubes, as above. Labs Labs: Laboratory Results - last 24 hr 01/11/24 01/11/24 01/11/24 11:39 16:47 20:07 WBC RBC Hgb Hct MCV MCH MCHC RDW Plt Count MPV Immature Gran % (Auto) Neut % (Auto) Lymph % (Auto) [place] % (Auto) Eos % (Auto) Baso % (Auto) Lymph # (Auto) [place] # (Auto) Eos # (Auto) Baso # (Auto) Abs Immat Gran (auto) Absolute Neuts (auto) Absolute Nucleated RBC Nucleated RBC % Puncture Site ABG pH ABG pCO2 ABG pO2 ABG PO2/FiO2 Ratio ABG HCO3 ABG O2 Saturation ABG O2 Content ABG Base Excess A-a Gradient Oxyhemoglobin Carboxyhemoglobin Methemoglobin Reduced Hemoglobin Total Hemoglobin O2 Delivery Device O2 Liters/Min Minute Volume Vent Rate Vent Mode FiO2 Tidal Volume PEEP Peak Inspir Pressure Pressure Support Sodium Potassium Chloride Carbon Dioxide Anion Gap BUN Creatinine Estim Creat Clear Calc Estimated GFR Glucose POC Capillary Glucose 281 H 285 H 285 H Calcium Phosphorus Magnesium Total Bilirubin AST ALT Alkaline Phosphatase Total Protein Albumin 01/12/24 01/12/24 01/12/24 00:40 03:59 04:26 WBC RBC Hgb Hct MCV MCH MCHC RDW Plt Count MPV Immature Gran % (Auto) Neut % (Auto) Lymph % (Auto) [place] % (Auto) Eos % (Auto) Baso % (Auto) Lymph # (Auto) [place] # (Auto) Eos # (Auto) Baso # (Auto) Abs Immat Gran (auto) Absolute Neuts (auto) Absolute Nucleated RBC Nucleated RBC % Puncture Site Left brachial ABG pH 7.534 H* ABG pCO2 36.7 ABG pO2 83.6 ABG PO2/FiO2 Ratio 3.98 ABG HCO3 30.3 H ABG O2 Saturation 97.2 ABG O2 Content 13.8 L ABG Base Excess 7.2 A-a Gradient 22.2 Oxyhemoglobin 95.7 Carboxyhemoglobin 0.6 Methemoglobin 0.3 Reduced Hemoglobin 3.4 Total Hemoglobin 10.2 L O2 Delivery Device Ventilator O2 Liters/Min Not Reportable Minute Volume Not Reportable Vent Rate 14 Vent Mode Cmv FiO2 21 Tidal Volume 350 PEEP 5 Peak Inspir Pressure Not Reportable Pressure Support Not Reportable Sodium Potassium Chloride Carbon Dioxide Anion Gap BUN Creatinine Estim Creat Clear Calc Estimated GFR Glucose POC Capillary Glucose 302 H 304 H Calcium Phosphorus Magnesium Total Bilirubin AST ALT Alkaline Phosphatase Total Protein Albumin 01/12/24 01/12/24 05:49 07:36 WBC 8.5 RBC 2.79 L Hgb 8.1 L Hct 26.6 L MCV 95.3 MCH 29.0 MCHC 30.5 L RDW 13.5 Plt Count 206 MPV 10.7 H Immature Gran % (Auto) 0.6 H Neut % (Auto) 83.0 H Lymph % (Auto) 11.3 L [place] % (Auto) 4.8 Eos % (Auto) 0.2 Baso % (Auto) 0.1 L Lymph # (Auto) 0.96 [place] # (Auto) 0.4 Eos # (Auto) 0.0 Baso # (Auto) 0.0 Abs Immat Gran (auto) 0.05 H Absolute Neuts (auto) 7.0 H Absolute Nucleated RBC 0.000 Nucleated RBC % 0.0 Puncture Site ABG pH ABG pCO2 ABG pO2 ABG PO2/FiO2 Ratio ABG HCO3 ABG O2 Saturation ABG O2 Content ABG Base Excess A-a Gradient Oxyhemoglobin Carboxyhemoglobin Methemoglobin Reduced Hemoglobin Total Hemoglobin O2 Delivery Device O2 Liters/Min Minute Volume Vent Rate Vent Mode FiO2 Tidal Volume PEEP Peak Inspir Pressure Pressure Support Sodium 141 Potassium 3.8 Chloride 98 Carbon Dioxide 39 H Anion Gap 4 BUN 51 H Creatinine 3.80 H Estim Creat Clear Calc 14 Estimated GFR 12 L Glucose 312 H POC Capillary Glucose 319 H Calcium 8.0 L Phosphorus 3.1 Magnesium 2.1 Total Bilirubin 0.4 AST 72 H ALT 50 H Alkaline Phosphatase 93 Total Protein 7.0 Albumin 3.3 L Quality VTE Prophylaxis VTE prophylaxis: mechanical ordered and pharmacologic ordered
[2024-01-12 10:15] LABS: Procalcitonin 0.9 ng/mL
[2024-01-12] MEDS: ALBUMIN HUMAN 25% 12.5 GM/50ML 50 ML IVPB (10:26)
[2024-01-12 11:18] LABS: MRSA (PCR) NOT DETECTED (NOT DETECTE)
--- NOTE | 2024-01-12 11:38 | PCNFU ---
Addendum entered by Rosalina Ricardo, RD, LDN 01/12/24 13:53: Spoke with [employer] Up orders to increase tube feeding to 50 ml/hr. Agree with diet orders. Original Note: Nutrition Follow-Up Complete: Inadequate energy intake related to mechanical ventilation, increased needs from dialysis as evidenced by need for full tube feeding Goal: Meet estimated nutrition needs Patient will continue current goal. Pt current nutrition is Nepro at 40 ml/hr. Nutrition Recommendations: increasing to 50 ml/hr. Last recorded weight is 80.5 kg, up from 79.5kg on admit. Bowel Motility: +Bm reported 01/11 Labs Reviewed:BUN 51, Cr 3.8,Glu 312, Hct 26.6,Hgb 8.1 Meds Noted: NovoLog, Lantus, Heparin, Keppra, Protonix. Skin: WNL Additional Notes: Patient remains on mechanical vent. Tube feedings are being tolerated of Nepro at 40 ml/hr. Flush 30 ml a 4 hours. Tube feedings providing 1584 kcal/71 gm protein/640 ml water. 80% caloric needs and 74% protein needs. If patient remains on mechanical vent would recommend increasing tube feedings rate to 50 ml/hr. Patient is receiving Dialysis today. Monitoring tube feeding tolerance, labs, weights, output, plan of care Follow up daily in rounds, reassess Monday and Monday
[2024-01-12] MEDS: EPOETIN ALFA-EPBX 10,000 UNITS/ML VIAL 10000 UNITS SUB-Q (11:55)
[2024-01-12 11:57] LABS: Glucose Point of Care 156 mg/dl (65-105)
--- NOTE | 2024-01-12 12:15 | P.PNNP_ITS ---
Progress Note: A&P Assessment and Plan (1) Acute kidney failure: Code(s): N17.9 - Acute kidney failure, unspecified Status: Acute Assessment and Plan: * baseline creatinine not known * reported has some underlying renal insufficiency/CKD per family * complicated by severe acidosis and hyperkalemia on admission * etiology likely multifactorial: * infection/sepsis * hemodynamic instability/shock * SRINIVAS-I + HCTZ use prior to admission * possible prerenal factors * metformin use prior to admission * continued BP medications prior to admission * s/p aggressive IVF resuscitation * multiple pushes of IV bicarb on admission * evaluation to date noted: * CT of abd/pelvis and renal ultrasound negative for obstruction * urine eosinophils negative * CPK normal * urine electrolytes non-prerenal * UA suggestive of infection * proteinuria noted * DATABASE DESIGN ANALYST/HD on 01/06 and 01/07 more so for clearance of uremic toxins and treatment of acidosis * HD today for clearance of uremic toxins...(in the hopes this improves mental status) * follow repeat labs and UOP for evidence of renal recovery (2) Septic shock: Code(s): A41.9 - Sepsis, unspecified organism; R65.21 - Severe sepsis with septic shock Status: Acute Assessment and Plan: * initially normotensive on presentation * however, worsening hypotension in the ER * s/p aggressive IVF resuscitation * presumsed source = aspiration pneumonia + UTI * follow culture data - negative to date but still with on/off fevers * plan CT scan of C/A/P for further assessment * continue antibiotics * vasopressor therapy to maintain MAP - weaned off * follow trend of hemodynamics (3) Acute respiratory failure: Code(s): J96.00 - Acute respiratory failure, unspecified whether with hypoxia or hypercapnia Status: Acute Assessment and Plan: * due to AMS + emesis and concerns for aspiration and inability to protect airway * intubated and on mechanical ventilation * continue ventilator support - off sedation * weaning as tolerated once mentation improves (4) Acidosis: Code(s): E87.20 - Acidosis, unspecified Status: Acute Assessment and Plan: * resolved * due to a combination of CARMEN, lactic acidosis, and sepsis on admission * s/p multiple pushes of IV bicarb on admission to ICU * DATABASE DESIGN ANALYST/dialysis x 2 sesssions to help correct acidosis * was also on bicarb gtt and oral bicarbonate -- weaned off * lactic acid has normalized * continue supportive care (5) Hyperkalemia: Code(s): E87.5 - Hyperkalemia Status: Acute Assessment and Plan: * resolved * due to CARMEN/ARF * s/p medical management in the ER * dialysis further corrected/stabilized * follow trend of repeat K+ levels (6) Encephalopathy: Code(s): G93.40 - Encephalopathy, unspecified Status: Acute Assessment and Plan: * as noted by presentation of altered mental status, delirium, and confusion * presumably related to uremia, infection, along with severe acidosis * TSH and ammonia levels noted * despite being off sedation, not waking up * dialysis today for clearance of uremic toxins and possible left over sedative medications * recheck CT of head * follow mentation (7) Insulin dependent diabetes mellitus: Status: Chronic Assessment and Plan: * holding metformin * follow accu-cheks * 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 Subjective Date/time seen: 01/12/24 12:15 Interval history: Follow-up for acute kidney injury/acute renal failure (on chronic kidney disease??). Tolerating dialysis treatment at the time of my visit (seen on HD at 12:05PM); remains intubated and on mechanical ventilation; still unresponsive despite being off all sedation at this time; continues to have on/off fevers for the last 2 - 3 days as well; remains hemodynamically stable off vasopressor therapy Exam Narrative: General: somewhat ill appearing female intubated and on mechanical ventilation Heart: normal S1 and S2; no rub Lungs: coarse breath sounds Abdomen: soft, nontender, nondistended, positive bowel sounds Extremities: no cyanosis or clubbing; no edema Skin: no rash Objective Data Vital Signs Vital Signs: Vital Signs Temp Pulse Resp BP Pulse Ox O2 Del Method FiO2 01/12/24 12:15 78 153/65 H 01/12/24 12:00 99.8 F H 77 18 115/59 L 100 01/12/24 12:00 21 01/12/24 12:00 Mechanical Ventilation 21 01/12/24 12:00 78 01/12/24 12:00 78 115/59 L 01/12/24 11:45 77 89/55 L 01/12/24 11:30 78 86/52 L 01/12/24 11:15 77 84/51 L 01/12/24 11:00 78 84/53 L 01/12/24 10:50 79 100 Mechanical Ventilation 01/12/24 10:45 78 94/55 L 01/12/24 09:20 101.4 F H 01/12/24 10:15 82 78/53 L 01/12/24 10:30 82 99/57 L 01/12/24 10:00 91 90/61 L 01/12/24 10:00 101.4 F H 92 22 H 91/57 L 100 01/12/24 10:00 92 01/12/24 09:45 92 114/64 01/12/24 09:30 93 116/69 01/12/24 09:15 94 135/74 01/12/24 09:07 94 156/76 H 01/12/24 09:00 101.6 F H 99 16 174/78 H 01/12/24 09:00 21 01/12/24 08:00 101.4 F H 102 H 14 175/79 H 99 01/12/24 08:00 21 01/12/24 08:00 Mechanical Ventilation 01/12/24 08:00 102 H 01/12/24 08:21 102 H 01/12/24 08:20 101.7 F H 01/12/24 08:11 101 H 99 Mechanical Ventilation 01/12/24 06:00 97 01/12/24 04:00 95 01/12/24 06:00 100.9 F H 95 14 177/88 H 100 01/12/24 04:00 99 Mechanical Ventilation 01/12/24 04:00 21 01/12/24 04:44 96 99 Mechanical Ventilation 01/12/24 04:00 100.9 F H 91 14 177/88 H 99 01/12/24 04:05 93 01/12/24 04:01 101.6 F H 01/12/24 03:00 101.4 F H 92 14 146/63 H 99 01/12/24 02:20 92 99 Mechanical Ventilation 01/12/24 02:00 95 01/12/24 00:00 99 01/12/24 02:00 101.6 F H 95 14 149/80 H 99 01/12/24 00:00 21 01/12/24 00:00 99 Mechanical Ventilation 01/12/24 01:00 101.4 F H 96 14 191/89 H 99 01/12/24 01:29 101.6 F H 01/12/24 01:21 100 01/12/24 00:00 101.2 F H 93 14 183/92 H 98 01/11/24 23:15 92 14 142/73 H 100 01/11/24 23:00 92 18 176/71 H 98 01/11/24 22:58 93 98 Mechanical Ventilation 21 01/11/24 22:00 95 01/11/24 20:00 96 01/11/24 22:18 101 F H 96 16 180/86 H 98 01/11/24 22:28 98 01/11/24 22:00 101 F H 95 15 186/85 H 99 01/11/24 21:00 91 14 128/66 100 01/11/24 20:00 98 Mechanical Ventilation 21 01/11/24 20:00 21 01/11/24 20:00 100.6 F H 96 17 193/79 H 98 01/11/24 20:37 95 98 Mechanical Ventilation 01/11/24 20:10 96 01/11/24 18:47 101 H 01/11/24 18:00 100.4 F H 98 14 161/87 H 99 01/11/24 18:00 96 Intake/Output Intake/Output: Intake & Output 01/09/24 01/10/24 01/11/24 01/12/24 23:59 23:59 23:59 23:59 Intake Total 3123.6667 1384 1666 952 Output Total 1930 3175 2500 1876 Balance 1193.6667 -1791 -834 -924 Meds/Results Medications: Active Medications Generic Name Dose Route Start Last Admin Trade Name Freq PRN Reason Stop Dose Admin Acetaminophen 650 mg 01/10/24 08:02 01/12/24 08:20 Acetaminophen 325 Mg Tablet FEED TUBE 650 mg Q6H PRN Administration Mild Pain (1-3) or Fever Amlodipine Besylate 10 mg 01/11/24 14:05 01/12/24 08:21 Amlodipine Besylate 10 Mg Tablet FEED TUBE 10 mg DAILY CARMELA Administration Aspirin 325 mg 01/12/24 16:00 01/12/24 16:17 Aspirin 325 Mg Tablet FEED TUBE 325 mg DAILY@0800 CARMELA Administration Dextrose 12.5 gm 01/07/24 13:18 Dextrose 50% 25 Gm/50 Ml Syringe IV PUSH PRN PRN Hypoglycemia Protocol Epoetin Dane-epbx 10,000 units 01/12/24 09:20 01/12/24 11:55 Epoetin Dane-Epbx 10,000 Units/Ml Vial SUB-Q 10,000 units MOWEFR@09 CARMELA Administration Glucagon 1 mg 01/07/24 13:18 Glucagon For Inj 1 Mg Vial IM PRN PRN Hypoglycemia Protocol Glucose 15 gm 01/07/24 13:18 Glucose Oral Gel 15 Gm Of Glucse In 37.5 Gm Tube PO PRN PRN Hypoglycemia Protocol Heparin Sodium (Porcine) 5,000 units 01/07/24 21:00 01/12/24 08:22 Heparin Sodium 5,000 Units/Ml Vial SUB-Q 5,000 units Q12HR CARMELA Administration Hydralazine HCl 10 mg 01/12/24 08:00 01/12/24 13:17 Hydralazine 10 Mg Tablet FEED TUBE 10 mg Q6H CARMELA Administration Dextrose 1,000 mls @ 100 mls/hr 01/07/24 13:18 Dextrose 5% 1,000 Ml IVPB PRN PRN Hypoglycemia Protocol Albumin Human 50 mls @ 999 mls/hr 01/07/24 17:11 01/12/24 10:30 Albutein IVPB 02/06/24 17:10 Infused Q10M PRN Infusion HYPOTENSION Levetiracetam 500 mg in 100 mls @ 400 mls/hr 01/07/24 21:00 01/11/24 20:26 Keppra Iv IVPB Infused Q24H CARMELA Infusion Cefepime HCl 1 gm in 50 mls @ 100 mls/hr 01/12/24 12:00 01/12/24 12:45 Maxipime 1 Gm/Ns 50 Ml IVPB 100 mls/hr Q12H CARMELA Administration Insulin Aspart 4 - 8 units 01/10/24 07:55 01/12/24 16:17 Insulin Aspart (*Bkc) 100 Units/Ml SUB-Q 6 units Q4H CARMELA Administration Protocol Insulin Glargine 45 units 01/12/24 09:00 01/12/24 08:36 Insulin Glargine (*Bkc) 100 Units/Ml SUB-Q 45 units QAM CARMELA Administration Labetalol HCl 20 mg 01/08/24 14:39 01/12/24 16:43 Labetalol Hcl Inj 100 Mg/20 Ml Vial IV PUSH 20 mg Q4H PRN Administration Hypertension Metoprolol Tartrate 50 mg 01/12/24 09:00 01/12/24 08:21 Metoprolol Tartrate 50 Mg Tab FEED TUBE 50 mg Q12HR CARMELA Administration Multi-Ingred Cream/Lotion/Oil/Oint 1 applic 01/07/24 21:00 01/12/24 08:22 Mineral Oil/White Petrolatum Ointment EACH EYE 1 applic Q12HR CARMELA Administration Pantoprazole Sodium 40 mg 01/07/24 21:00 01/12/24 08:23 Pantoprazole Sodium Iv 40 Mg Vial IV PUSH 40 mg Q12HR CARMELA Administration Perflutren Lipid Microsphere 0 ml 01/12/24 16:00 Perflutren Lipid Microspheres 1.5 Ml Vial Diluted To 10 Ml Total Volume IV PUSH 01/15/24 16:01 ONCE PRN adequate visualization Protocol Vancomycin HCl 1 each 01/12/24 09:22 Vancomycin For Hemodialysis IVPB PRN PRN Vancomycin Protocol Radiology Results: ITS Impressions Abdomen/Pelvis CT 01/07/24 16:52 IMPRESSION: No acute abdominopelvic process. Specifically, there is no CT evidence of bowel obstruction. No definite evidence of renal injury, noting that low-grade renal injury as can be difficult to detect without contrast. Renal Ultrasound 01/08/24 10:47 IMPRESSION: 1. Normal kidney sizes. No hydronephrosis. Chest X-Ray 01/12/24 06:54 Impression: Possible minimal left basilar atelectatic change. Support tubes, as above. Labs Labs: Laboratory Tests 01/12/24 05:49 01/12/24 05:49 Calcium 8.0 L Phosphorus 3.1 Magnesium 2.1 Total Bilirubin 0.4 AST 72 H ALT 50 H Alkaline Phosphatase 93 Total Protein 7.0 Albumin 3.3 L Procalcitonin 0.9 Microbiology 01/11/24 07:52 Blood Blood Culture - Preliminary 01/11/24 08:14 Blood Blood Culture - Preliminary 01/09/24 09:32 Sputum Sputum Culture - Final Yeast isolated
[2024-01-12] MEDS: CEFEPIME 1 GM/NS 50 ML 1 GM/50 ML BAG IVPB (12:45)
[2024-01-12] MEDS: VANCOMYCIN 1,500 MG/NS 500 ML 1,500 MG/500 ML BAG 250 MG IVPB (13:17)
[2024-01-12] MEDS: hydrALAZINE 10 MG TABLET FEED TUBE ×2 (13:17→20:14)
--- NOTE | 2024-01-12 15:31 | P.PNIM_ITS ---
Progress Note: A&P Assessment and Plan (1) Acute kidney failure: Code(s): N17.9 - Acute kidney failure, unspecified Status: Acute Assessment and Plan: On chronic kidney injury, unknown cause, CT of the abdomen and pelvis did not show any hydronephrosis or urinary obstruction -significant lactic acidosis and metabolic acidosis -patient has a history of diabetes, hypertension which is likely the cause of chronic kidney disease -patient on lisinopril hydrochlorothiazide and metformin at home -patient was given a total of 3 L IV fluid bolus, 1 L in the ER and 2 L in the ICU -sodium bicarb IV pushes x4 in the ICU -patient was started on sodium bicarb infusion after discussing with Nephrology -patient was started on hemodialysis and was dialyzed x 2 days -urine output has improved - 01/11 plan to dialyze again today -continue to monitor urine output, electrolytes and renal function (2) Metabolic acidosis: Code(s): E87.20 - Acidosis, unspecified Status: Acute Assessment and Plan: Patient presented with significant metabolic acidosis and lactic acidosis. This could be combination of septic shock, acute kidney injury but also a possibility of metformin toxicity Patient received hemodialysis on last 2 days. Further dialysis per Nephrology Patient also received bicarb and acidosis has now resolved in fact patient is now alkalotic Monitor (3) Acute respiratory failure: Code(s): J96.00 - Acute respiratory failure, unspecified whether with hypoxia or hypercapnia Status: Acute Assessment and Plan: Patient had an episode of emesis in the ER, given her altered mental status encephalopathy, risk of aspiration with impending respiratory failure patient was intubated on 01/06/2025 -currently on CMV mode of ventilation, peep of 5, 50% FiO2 -ABG reviewed and continue vent rate to 14 and decrease tidal volume to 300 -chest x-ray reviewed -sedation is on hold. Will evaluate for weaning trial as patient mental status improves. (4) Septic shock: Code(s): A41.9 - Sepsis, unspecified organism; R65.21 - Severe sepsis with septic shock Status: Acute Assessment and Plan: Patient hypotensive on presentation Patient was given IV fluid bolus followed by maintenance IV fluids -lactic acid has improved -Levophed weaned off -off IV fluids -source appears to be UTI. Urine and blood cultures are negative till now -continue Rocephin -discontinue stress dose steroids - 01/10 continues to have fever although other markers of infection are improved as normal WBC. Repeat blood cultures sent and pending Clark catheter change 01/11 Minimal respiratory secretions, sputum cultures growing yeast which is likely a colonization Change Rocephin to cefepime and vancomycin Obtain CT scan (5) Encephalopathy: Code(s): G93.40 - Encephalopathy, unspecified Status: Acute Assessment and Plan: Patient presented with encephalopathy, altered mental status, delirium, confusion -most likely related to uremia, infection, severe acidosis and baseline flow malacia from past stroke -head CT IMPRESSION: 1. No acute intracranial process. 2. 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 3. Additional more diffuse likely age-related mild to moderate diffuse volume loss and mild scattered white matter hypoattenuation consistent with chronic small vessel ischemic disease. TSH and ammonia normal Patient now is off sedation since x 3 days. Still not responsive.. Will continue hold sedatives. EEG ordered and pending Will dialyze patient today to help with drug removal (6) Diastolic dysfunction: Code(s): I51.89 - Other ill-defined heart diseases Status: Acute Assessment and Plan: 12/07/2021 echocardiogram: Summary 1. Left ventricular chamber dimension is normal. 2. Left ventricular systolic function is normal, estimated at 65-70%. 3. There is moderately increased left ventricular wall thickness. 4. The left ventricular diastolic function is grade I diastolic dysfunction. 5. E/e' 13 is mildly elevated. 6. Left atrial chamber dimension is mildly enlarged. 7. There is moderate aortic valve sclerosis. 8. There is mild aortic valve stenosis with a peak velocity of 247.83 cm/s, mean gradient of 11 mmHg, and aortic valve area of 1.56 cm2. 9. The mitral valve has severely calcified annulus. 10. No pulmonary hypertension, estimated pulmonary arterial systolic pressure is 21 mmHg. (7) Hyperkalemia: Code(s): E87.5 - Hyperkalemia Status: Acute Assessment and Plan: Patient was treated with calcium gluconate, insulin, dextrose and albuterol. Potassium on admission was 5.7 Patient was dialyzed and hyperkalemia has resolved (8) Insulin dependent diabetes mellitus: Status: Chronic Assessment and Plan: Continue sliding scale insulin Accu-Cheks Increased Lantus does (9) Right hemiparesis: Code(s): G81.91 - Hemiplegia, unspecified affecting right dominant side Status: Acute Assessment and Plan: History of left-sided cerebral hemisphere and CVA, residual mild aphasia and right-sided weakness (10) Seizures: Code(s): R56.9 - Unspecified convulsions Status: Acute Assessment and Plan: Patient has a history of seizures, on p.o. Keppra 500 mg p.o. q.12 hours Continue Keppra IV 500 mg IV q.24 (discuss with pharmacist) EEG is pending (11) Hypertension: Code(s): I10 - Essential (primary) hypertension Status: Acute Assessment and Plan: Continue metoprolol and amlodipine Add hydralazine Subjective Date/time seen: 01/12/24 15:31 Interval history: Intubated. Not on any sedation still unresponsive. Exam Narrative: General: Intubated and sedated HEENT:? Pupils are equal, sluggishly reactive to light, sclera is clear, ETT in place Neck:? Supple, right IJ dialysis catheter in place Respiratory:? Coarse breath sounds bilaterally, decreased at bases no wheezing, adequate air entry Cardiac:? S1-S2 normal, regular rate and rhythm, Abdomen:? Soft, nontender, nondistended, hypoactive bowel sounds, old midline surgical scar noted Extremities:? Dry skin, decreased pedal pulses, no edema Neuro:? Patient is intubated, off sedation, PERRL, minimal grimace response to sternal painful stimuli. Opens her eyes on stimulation Skin:? Dry and flaky skin on lower extremities, skin is warm Psych:? Unable to assess at this time Objective Data Vital Signs Vital Signs: Vital Signs - 24 hr 01/11/24 16:14 01/11/24 16:00 01/11/24 16:00 Temperature Pulse Rate 88 Respiratory Rate Blood Pressure Pulse Oximetry Oxygen Delivery Mechanical Ventilation Mechanical Ventilation Fraction of Inspired Oxygen 21 21 01/11/24 16:00 01/11/24 16:00 01/11/24 18:00 Temperature 100.4 F H Pulse Rate 91 96 Respiratory Rate 14 Blood Pressure 126/61 Pulse Oximetry 99 Oxygen Delivery Fraction of Inspired Oxygen 21 01/11/24 18:00 01/11/24 18:47 01/11/24 20:10 Temperature 100.4 F H Pulse Rate 98 101 H 96 Respiratory Rate 14 Blood Pressure 161/87 H Pulse Oximetry 99 Oxygen Delivery Fraction of Inspired Oxygen 01/11/24 20:37 01/11/24 20:00 01/11/24 20:00 Temperature 100.6 F H Pulse Rate 95 96 Respiratory Rate 17 Blood Pressure 193/79 H Pulse Oximetry 98 98 Oxygen Delivery Mechanical Ventilation Fraction of Inspired Oxygen 21 21 01/11/24 20:00 01/11/24 21:00 01/11/24 22:00 Temperature 101 F H Pulse Rate 91 95 Respiratory Rate 14 15 Blood Pressure 128/66 186/85 H Pulse Oximetry 98 100 99 Oxygen Delivery Mechanical Ventilation Fraction of Inspired Oxygen 21 01/11/24 22:28 01/11/24 22:18 01/11/24 20:00 Temperature 101 F H Pulse Rate 98 96 96 Respiratory Rate 16 Blood Pressure 180/86 H Pulse Oximetry 98 Oxygen Delivery Fraction of Inspired Oxygen 01/11/24 22:00 01/11/24 22:58 01/11/24 23:00 Temperature Pulse Rate 95 93 92 Respiratory Rate 18 Blood Pressure 176/71 H Pulse Oximetry 98 98 Oxygen Delivery Mechanical Ventilation Fraction of Inspired Oxygen 21 01/11/24 23:15 01/12/24 00:00 01/12/24 01:21 Temperature 101.2 F H Pulse Rate 92 93 100 Respiratory Rate 14 14 Blood Pressure 142/73 H 183/92 H Pulse Oximetry 100 98 Oxygen Delivery Fraction of Inspired Oxygen 01/12/24 01:29 01/12/24 01:00 01/12/24 00:00 Temperature 101.6 F H 101.4 F H Pulse Rate 96 Respiratory Rate 14 Blood Pressure 191/89 H Pulse Oximetry 99 99 Oxygen Delivery Mechanical Ventilation Fraction of Inspired Oxygen 21 01/12/24 00:00 01/12/24 02:00 01/12/24 00:00 Temperature 101.6 F H Pulse Rate 95 99 Respiratory Rate 14 Blood Pressure 149/80 H Pulse Oximetry 99 Oxygen Delivery Fraction of Inspired Oxygen 21 01/12/24 02:00 01/12/24 02:20 01/12/24 03:00 Temperature 101.4 F H Pulse Rate 95 92 92 Respiratory Rate 14 Blood Pressure 146/63 H Pulse Oximetry 99 99 Oxygen Delivery Mechanical Ventilation Fraction of Inspired Oxygen 21 01/12/24 04:01 01/12/24 04:05 01/12/24 04:00 Temperature 101.6 F H 100.9 F H Pulse Rate 93 91 Respiratory Rate 14 Blood Pressure 177/88 H Pulse Oximetry 99 Oxygen Delivery Fraction of Inspired Oxygen 01/12/24 04:44 01/12/24 04:00 01/12/24 04:00 Temperature Pulse Rate 96 Respiratory Rate Blood Pressure Pulse Oximetry 99 99 Oxygen Delivery Mechanical Ventilation Mechanical Ventilation Fraction of Inspired Oxygen 21 21 21 01/12/24 06:00 01/12/24 04:00 01/12/24 06:00 Temperature 100.9 F H Pulse Rate 95 95 97 Respiratory Rate 14 Blood Pressure 177/88 H Pulse Oximetry 100 Oxygen Delivery Fraction of Inspired Oxygen 01/12/24 08:11 01/12/24 08:20 01/12/24 08:21 Temperature 101.7 F H Pulse Rate 101 H 102 H Respiratory Rate Blood Pressure Pulse Oximetry 99 Oxygen Delivery Mechanical Ventilation Fraction of Inspired Oxygen 21 01/12/24 08:00 01/12/24 08:00 01/12/24 08:00 Temperature Pulse Rate 102 H Respiratory Rate Blood Pressure Pulse Oximetry Oxygen Delivery Mechanical Ventilation Fraction of Inspired Oxygen 21 21 01/12/24 08:00 01/12/24 09:00 01/12/24 09:00 Temperature 101.4 F H 101.6 F H Pulse Rate 102 H 99 Respiratory Rate 14 16 Blood Pressure 175/79 H 174/78 H Pulse Oximetry 99 Oxygen Delivery Fraction of Inspired Oxygen 21 01/12/24 09:07 01/12/24 09:15 01/12/24 09:30 Temperature Pulse Rate 94 94 93 Respiratory Rate Blood Pressure 156/76 H 135/74 116/69 Pulse Oximetry Oxygen Delivery Fraction of Inspired Oxygen 01/12/24 09:45 01/12/24 10:00 01/12/24 10:00 Temperature 101.4 F H Pulse Rate 92 92 92 Respiratory Rate 22 H Blood Pressure 114/64 91/57 L Pulse Oximetry 100 Oxygen Delivery Fraction of Inspired Oxygen 01/12/24 10:00 01/12/24 10:30 01/12/24 10:15 Temperature Pulse Rate 91 82 82 Respiratory Rate Blood Pressure 90/61 L 99/57 L 78/53 L Pulse Oximetry Oxygen Delivery Fraction of Inspired Oxygen 01/12/24 09:20 01/12/24 10:45 01/12/24 10:50 Temperature 101.4 F H Pulse Rate 78 79 Respiratory Rate Blood Pressure 94/55 L Pulse Oximetry 100 Oxygen Delivery Mechanical Ventilation Fraction of Inspired Oxygen 21 01/12/24 11:00 01/12/24 11:15 01/12/24 11:30 Temperature Pulse Rate 78 77 78 Respiratory Rate Blood Pressure 84/53 L 84/51 L 86/52 L Pulse Oximetry Oxygen Delivery Fraction of Inspired Oxygen 01/12/24 11:45 01/12/24 12:00 01/12/24 12:00 Temperature Pulse Rate 77 78 78 Respiratory Rate Blood Pressure 89/55 L 115/59 L Pulse Oximetry Oxygen Delivery Fraction of Inspired Oxygen 01/12/24 12:00 01/12/24 12:00 01/12/24 12:00 Temperature 99.8 F H Pulse Rate 77 Respiratory Rate 18 Blood Pressure 115/59 L Pulse Oximetry 100 Oxygen Delivery Mechanical Ventilation Fraction of Inspired Oxygen 21 21 01/12/24 12:15 01/12/24 12:37 01/12/24 12:30 Temperature 99.3 F Pulse Rate 78 84 84 Respiratory Rate 16 Blood Pressure 153/65 H 167/73 H 157/68 H Pulse Oximetry Oxygen Delivery Fraction of Inspired Oxygen 01/12/24 14:00 01/12/24 14:00 01/12/24 15:00 Temperature 99.8 F H Pulse Rate 88 88 92 Respiratory Rate 14 Blood Pressure 156/81 H Pulse Oximetry 99 100 Oxygen Delivery Mechanical Ventilation Fraction of Inspired Oxygen 21 Intake/Output Intake/Output: Intake & Output 01/09/24 01/10/24 01/11/24 01/12/24 23:59 23:59 23:59 23:59 Intake Total 7733.6667 1384 1666 952 Output Total 0130 7445 2500 1876 Balance 1193.6667 -1791 -834 -924 Meds/Results Medications: Active Medications Generic Name Dose Route Start Last Admin Trade Name Freq PRN Reason Stop Dose Admin Acetaminophen 650 mg 01/10/24 08:02 01/12/24 08:20 Acetaminophen 325 Mg Tablet FEED TUBE 650 mg Q6H PRN Administration Mild Pain (1-3) or Fever Amlodipine Besylate 10 mg 01/11/24 14:05 01/12/24 08:21 Amlodipine Besylate 10 Mg Tablet FEED TUBE 10 mg DAILY CARMELA Administration Dextrose 12.5 gm 01/07/24 13:18 Dextrose 50% 25 Gm/50 Ml Syringe IV PUSH PRN PRN Hypoglycemia Protocol Epoetin Dane-epbx 10,000 units 01/12/24 09:20 01/12/24 11:55 Epoetin Dane-Epbx 10,000 Units/Ml Vial SUB-Q 10,000 units [id number]@09 CARMELA Administration Glucagon 1 mg 01/07/24 13:18 Glucagon For Inj 1 Mg Vial IM PRN PRN Hypoglycemia Protocol Glucose 15 gm 01/07/24 13:18 Glucose Oral Gel 15 Gm Of Glucse In 37.5 Gm Tube PO PRN PRN Hypoglycemia Protocol Heparin Sodium (Porcine) 5,000 units 01/07/24 21:00 01/12/24 08:22 Heparin Sodium 5,000 Units/Ml Vial SUB-Q 5,000 units Q12HR CARMELA Administration Hydralazine HCl 10 mg 01/12/24 08:00 01/12/24 13:17 Hydralazine 10 Mg Tablet FEED TUBE 10 mg Q6H CARMELA Administration Dextrose 1,000 mls @ 100 mls/hr 01/07/24 13:18 Dextrose 5% 1,000 Ml IVPB PRN PRN Hypoglycemia Protocol Albumin Human 50 mls @ 999 mls/hr 01/07/24 17:11 01/12/24 10:30 Albutein IVPB 02/06/24 17:10 Infused Q10M PRN Infusion HYPOTENSION Levetiracetam 500 mg in 100 mls @ 400 mls/hr 01/07/24 21:00 01/11/24 20:26 Keppra Iv IVPB Infused Q24H CARMELA Infusion Cefepime HCl 1 gm in 50 mls @ 100 mls/hr 01/12/24 12:00 01/12/24 12:45 Maxipime 1 Gm/Ns 50 Ml IVPB 100 mls/hr Q12H CARMELA Administration Insulin Aspart 4 - 8 units 01/10/24 07:55 01/12/24 11:56 Insulin Aspart (*Bkc) 100 Units/Ml SUB-Q Not Given Q4H [facility] Protocol Insulin Glargine 45 units 01/12/24 09:00 01/12/24 08:36 Insulin Glargine (*Bkc) 100 Units/Ml SUB-Q 45 units QAM CARMELA Administration Labetalol HCl 20 mg 01/08/24 14:39 01/12/24 04:05 Labetalol Hcl Inj 100 Mg/20 Ml Vial IV PUSH 20 mg Q4H PRN Administration Hypertension Metoprolol Tartrate 50 mg 01/12/24 09:00 01/12/24 08:21 Metoprolol Tartrate 50 Mg Tab FEED TUBE 50 mg Q12HR CARMELA Administration Multi-Ingred Cream/Lotion/Oil/Oint 1 applic 01/07/24 21:00 01/12/24 08:22 Mineral Oil/White Petrolatum Ointment EACH EYE 1 applic Q12HR CARMELA Administration Pantoprazole Sodium 40 mg 01/07/24 21:00 01/12/24 08:23 Pantoprazole Sodium Iv 40 Mg Vial IV PUSH 40 mg Q12HR CARMELA Administration Vancomycin HCl 1 each 01/12/24 09:22 Vancomycin For Hemodialysis IVPB PRN PRN Vancomycin Protocol Radiology Results: ITS Impressions Abdomen/Pelvis CT 01/07/24 16:52 IMPRESSION: No acute abdominopelvic process. Specifically, there is no CT evidence of bowel obstruction. No definite evidence of renal injury, noting that low-grade renal injury as can be difficult to detect without contrast. Renal Ultrasound 01/08/24 10:47 IMPRESSION: 1. Normal kidney sizes. No hydronephrosis. Chest X-Ray 01/12/24 06:54 Impression: Possible minimal left basilar atelectatic change. Support tubes, as above. Labs Labs: Laboratory Results - last 24 hr 01/11/24 01/11/24 01/12/24 16:47 20:07 00:40 WBC RBC Hgb Hct MCV MCH MCHC RDW Plt Count MPV Immature Gran % (Auto) Neut % (Auto) Lymph % (Auto) [place] % (Auto) Eos % (Auto) Baso % (Auto) Lymph # (Auto) [place] # (Auto) Eos # (Auto) Baso # (Auto) Abs Immat Gran (auto) Absolute Neuts (auto) Absolute Nucleated RBC Nucleated RBC % Puncture Site ABG pH ABG pCO2 ABG pO2 ABG PO2/FiO2 Ratio ABG HCO3 ABG O2 Saturation ABG O2 Content ABG Base Excess A-a Gradient Oxyhemoglobin Carboxyhemoglobin Methemoglobin Reduced Hemoglobin Total Hemoglobin O2 Delivery Device O2 Liters/Min Minute Volume Vent Rate Vent Mode FiO2 Tidal Volume PEEP Peak Inspir Pressure Pressure Support Sodium Potassium Chloride Carbon Dioxide Anion Gap BUN Creatinine Estim Creat Clear Calc Estimated GFR Glucose POC Capillary Glucose 285 H 285 H 302 H Calcium Phosphorus Magnesium Total Bilirubin AST ALT Alkaline Phosphatase Total Protein Albumin Procalcitonin Nasal MRSA (PCR) 01/12/24 01/12/24 01/12/24 03:59 04:26 05:49 WBC 8.5 RBC 2.79 L Hgb 8.1 L Hct 26.6 L MCV 95.3 MCH 29.0 MCHC 30.5 L RDW 13.5 Plt Count 206 MPV 10.7 H Immature Gran % (Auto) 0.6 H Neut % (Auto) 83.0 H Lymph % (Auto) 11.3 L [place] % (Auto) 4.8 Eos % (Auto) 0.2 Baso % (Auto) 0.1 L Lymph # (Auto) 0.96 [place] # (Auto) 0.4 Eos # (Auto) 0.0 Baso # (Auto) 0.0 Abs Immat Gran (auto) 0.05 H Absolute Neuts (auto) 7.0 H Absolute Nucleated RBC 0.000 Nucleated RBC % 0.0 Puncture Site Left brachial ABG pH 7.534 H* ABG pCO2 36.7 ABG pO2 83.6 ABG PO2/FiO2 Ratio 3.98 ABG HCO3 30.3 H ABG O2 Saturation 97.2 ABG O2 Content 13.8 L ABG Base Excess 7.2 A-a Gradient 22.2 Oxyhemoglobin 95.7 Carboxyhemoglobin 0.6 Methemoglobin 0.3 Reduced Hemoglobin 3.4 Total Hemoglobin 10.2 L O2 Delivery Device Ventilator O2 Liters/Min Not Reportable Minute Volume Not Reportable Vent Rate 14 Vent Mode Cmv FiO2 21 Tidal Volume 350 PEEP 5 Peak Inspir Pressure Not Reportable Pressure Support Not Reportable Sodium 141 Potassium 3.8 Chloride 98 Carbon Dioxide 39 H Anion Gap 4 BUN 51 H Creatinine 3.80 H Estim Creat Clear Calc 14 Estimated GFR 12 L Glucose 312 H POC Capillary Glucose 304 H Calcium 8.0 L Phosphorus 3.1 Magnesium 2.1 Total Bilirubin 0.4 AST 72 H ALT 50 H Alkaline Phosphatase 93 Total Protein 7.0 Albumin 3.3 L Procalcitonin 0.9 Nasal MRSA (PCR) 01/12/24 01/12/24 01/12/24 07:36 09:59 11:54 WBC RBC Hgb Hct MCV MCH MCHC RDW Plt Count MPV Immature Gran % (Auto) Neut % (Auto) Lymph % (Auto) [place] % (Auto) Eos % (Auto) Baso % (Auto) Lymph # (Auto) [place] # (Auto) Eos # (Auto) Baso # (Auto) Abs Immat Gran (auto) Absolute Neuts (auto) Absolute Nucleated RBC Nucleated RBC % Puncture Site ABG pH ABG pCO2 ABG pO2 ABG PO2/FiO2 Ratio ABG HCO3 ABG O2 Saturation ABG O2 Content ABG Base Excess A-a Gradient Oxyhemoglobin Carboxyhemoglobin Methemoglobin Reduced Hemoglobin Total Hemoglobin O2 Delivery Device O2 Liters/Min Minute Volume Vent Rate Vent Mode FiO2 Tidal Volume PEEP Peak Inspir Pressure Pressure Support Sodium Potassium Chloride Carbon Dioxide Anion Gap BUN Creatinine Estim Creat Clear Calc Estimated GFR Glucose POC Capillary Glucose 319 H 156 H Calcium Phosphorus Magnesium Total Bilirubin AST ALT Alkaline Phosphatase Total Protein Albumin Procalcitonin Nasal MRSA (PCR) Not detected Hospitalist MIPS Advance Care Plan I have confirmed that the patient's Advanced Care Plan is present, code status is documented, or surrogate decision maker is listed in patient medical record.: Yes Medication Reconciliation I have utilized all available resources to obtain, update and review the patients current medications (includes all prescriptions, OTC, herbals, cannabis, and nutritional supplements).: Yes
[2024-01-12 16:14] LABS: Glucose Point of Care 308 mg/dl (65-105)
[2024-01-12] MEDS: ASPIRIN 325 MG TABLET FEED TUBE (16:17)
[2024-01-12] MEDS: levETIRAcetam 500MG/NACL 100ML 500 MG/100 ML BAG 400 MG IVPB (20:15)
[2024-01-12 20:30] LABS: Glucose Point of Care 293 mg/dl (65-105)
[2024-01-13] VITALS (30 sets, daily range): BP systolic 113–197; BP diastolic 61–83; PULSE 77–100; RESP 16–20; TEMP 37.4–37.9; O2SAT 99–100
[2024-01-13] MEDS: CEFEPIME 1 GM/NS 50 ML 1 GM/50 ML BAG IVPB ×2 (00:12→11:16)
[2024-01-13 00:27] LABS: Glucose Point of Care 353 mg/dl (65-105)
[2024-01-13] MEDS: INSULIN ASPART (*BKC) 100 UNITS/ML SUB-Q ×6 (00:40→20:14)
[2024-01-13] MEDS: LABETALOL HCL INJ 100 MG/20 ML VIAL 20 MG IV PUSH ×4 (00:41→22:41)
[2024-01-13] MEDS: hydrALAZINE 10 MG TABLET FEED TUBE ×4 (02:53→20:17)
[2024-01-13 03:35] LABS: Glucose Point of Care 290 mg/dl (65-105)
[2024-01-13 04:59] LABS: Hematocrit 25.9 % (37.0-47.0); Hemoglobin 7.9 g/dL (12.0-15.0); Mean Corpuscular HGB Conc 30.5 g/dl (32-36); Mean Corpuscular Hemoglobin 29.6 pg (26-34); Mean Platelet Volume 10.8 fl (7.4-10.4); Platelet Count Result 228 k/mm3 (150-375); Red Blood Count 2.67 M/mm3 (4.2-5.4); Red Cell Distribution Width 13.4 % (11.5-14.5); White Blood Count 8.2 K/mm3 (4.5-10.0)
[2024-01-13 05:14] LABS: Alanine Aminotransferase 36 U/L (6-35); Albumin Level 3.2 g/dL (3.5-5.1); Alkaline Phosphatase 89 U/L (38-126); Anion Gap 6 mmol/L (4-12); Aspartate Amino Transferase 37 U/L (14-36); Bilirubin,Total 0.3 mg/dL (0.2-1.3); Blood Urea Nitrogen 31 mg/dL (7-17); Calcium 8.7 mg/dL (8.4-10.2); Carbon Dioxide 29 mmol/L (22-30); Chloride 105 mmol/L (98-107); Estimated CRCL calculation 25 ml/min; Estimated Glomerular Filt Rate 24; Glucose 303 mg/dL (65-110); Phosphorus 1.8 mg/dL (2.5-4.5); Potassium 3.8 mmol/L (3.4-5.0); Sodium 140 mmol/L (137-145)
[2024-01-13 05:18] LABS: Vancomycin Random 15.6 ug/mL (10-20)
[2024-01-13 05:28] LABS: Alveolar/Arterial O2 Gradient 23.5 mmHg; Base Excess ABG 2.5 mEq/l (+/-2.0); Carboxyhemoglobin 0.6 % THb (0-2.0); Fractional Inspired Oxygen 21 %; Methemoglobin ABG 0.2 %THb (0-1.5); Oxygen Content ABG 12.1 %vol (16.0-22.0); Oxygen Saturation ABG 96.9 % (95.0-100.0); Oxyhemoglobin 95.4 % THb (90.0-100.0); PCO2 ABG 35.7 mmHg (35.0-45.0); PO2 ABG 83.5 mmHg (80.0-100.0); PO2 FiO2 Ratio Arterial Blood 3.98 %; Reduced Hemoglobin 3.8 %THb (0-5.0); Total Hemoglobin 8.9 g/dL (12.0-18.0); pH ABG 7.481 (7.350-7.450)
[2024-01-13 05:37] LABS: Device VENTILATOR; Modified Allen's Test Pass; Site Drawn LEFT BRACHIAL
[2024-01-13 05:38] LABS: Arterial Blood Gas PEEP 5 cmH2O; Arterial Blood Gas Tidal Volume 300 ml; Arterial Blood Gas Vent Mode CMV; Arterial Blood Gas Ventilator rate 14 /MIN
[2024-01-13 08:05] LABS: Glucose Point of Care 338 mg/dl (65-105)
[2024-01-13] MEDS: METOPROLOL TARTRATE 50 MG TAB FEED TUBE ×2 (08:12→20:18)
[2024-01-13] MEDS: ASPIRIN 325 MG TABLET FEED TUBE (08:12)
[2024-01-13] MEDS: amLODIPine BESYLATE 10 MG TABLET FEED TUBE (08:13)
[2024-01-13] MEDS: HEPARIN SODIUM 5,000 UNITS/ML VIAL 5000 UNITS SUB-Q ×2 (08:13→20:18)
[2024-01-13] MEDS: INSULIN GLARGINE (*BKC) 100 UNITS/ML 55 UNITS SUB-Q (08:14)
[2024-01-13] MEDS: PANTOPRAZOLE SODIUM IV 40 MG VIAL IV PUSH ×2 (08:15→20:20)
[2024-01-13] MEDS: MINERAL OIL/WHITE PETROLATUM OINTMENT 1 APPLIC EACH EYE ×2 (08:15→20:20)
--- NOTE | 2024-01-13 08:36 | P.PNINT_ITS ---
Progress Note: A&P Assessment and Plan (1) Stroke: Code(s): I63.9 - Cerebral infarction, unspecified Status: Acute Assessment and Plan: Patient presented with altered mental status but at that time patient was respiratory failure acute renal failure acidosis and sepsis. CT scan on presentation showed only old stroke and encephalomalacia Since then patient has not woken up despite holding sedation for multiple days and dialysis. 01/[address] was done which showed. 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 These could be embolic versus secondary to hypotension Echo has been ordered Continue aspirin and statin Neurology consult EEG ordered and pending (2) Acute kidney failure: Code(s): N17.9 - Acute kidney failure, unspecified Status: Acute Assessment and Plan: On chronic kidney injury, unknown cause, CT of the abdomen and pelvis did not show any hydronephrosis or urinary obstruction -significant lactic acidosis and metabolic acidosis -patient has a history of diabetes, hypertension which is likely the cause of chronic kidney disease -patient on lisinopril hydrochlorothiazide and metformin at home -patient was given a total of 3 L IV fluid bolus, 1 L in the ER and 2 L in the ICU -sodium bicarb IV pushes x4 in the ICU -patient was started on sodium bicarb infusion after discussing with Nephrology -patient was started on hemodialysis and was dialyzed x 2 days -urine output has improved - 01/11 patient was dialyzed again 1 L fluid was removed -continue to monitor urine output, electrolytes and renal function (3) Metabolic acidosis: Code(s): E87.20 - Acidosis, unspecified Status: Acute Assessment and Plan: Patient presented with significant metabolic acidosis and lactic acidosis. This could be combination of septic shock, acute kidney injury but also a possibility of metformin toxicity Patient received hemodialysis and IV bicarb. Acidosis has resolved. Further dialysis per Nephrology Monitor (4) Acute respiratory failure: Code(s): J96.00 - Acute respiratory failure, unspecified whether with hypoxia or hypercapnia Status: Acute Assessment and Plan: Patient had an episode of emesis in the ER, given her altered mental status encephalopathy, risk of aspiration with impending respiratory failure patient was intubated on 01/06/2025 -currently on CMV mode of ventilation, peep of 5, 50% FiO2 -ABG reviewed and continue vent rate to 14 and tidal volume to 300 -chest x-ray reviewed -sedation is on hold. -weaning will depend on improvement in mental status. (5) Septic shock: Code(s): A41.9 - Sepsis, unspecified organism; R65.21 - Severe sepsis with septic shock Status: Acute Assessment and Plan: Patient hypotensive on presentation Patient was given IV fluid bolus followed by maintenance IV fluids -lactic acid has improved -Levophed weaned off -off IV fluids -source appears to be UTI. Urine and blood cultures are negative till now -continue Rocephin -discontinue stress dose steroids - 01/10 continues to have fever although other markers of infection are improved as normal WBC. Repeat blood cultures sent and pending Clark catheter change 01/11 Minimal respiratory secretions, sputum cultures growing yeast which is likely a colonization Change Rocephin to cefepime and vancomycin Obtain CT scan 01/12 continues to have low-grade fever but overall fever curve is down.. White count is normal. CT scan of chest and pelvis does not show any area suggestive of infection. Clark catheter was changed. Procalcitonin level is also on the lower side. Continue cefepime and vancomycin at this time. Cultures are pending. (6) Encephalopathy: Code(s): G93.40 - Encephalopathy, unspecified Status: Acute Assessment and Plan: Patient presented with encephalopathy, altered mental status, delirium, confusion -most likely related to uremia, infection, severe acidosis and baseline flow malacia from past stroke -head CT IMPRESSION: 1. No acute intracranial process. 2. 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 3. Additional more diffuse likely age-related mild to moderate diffuse volume loss and mild scattered white matter hypoattenuation consistent with chronic small vessel ischemic disease. TSH and ammonia normal Patient now is off sedation since x 4 days. Still not responsive.. Will continue hold sedatives. EEG ordered and pending Patient was dialyzed 01/11 to help with drug removal. Minimal response Sees encephalopathy likely secondary to strokes. See above. Neurology consulted (7) Diastolic dysfunction: Code(s): I51.89 - Other ill-defined heart diseases Status: Acute Assessment and Plan: 12/07/2021 echocardiogram: Summary 1. Left ventricular chamber dimension is normal. 2. Left ventricular systolic function is normal, estimated at 65-70%. 3. There is moderately increased left ventricular wall thickness. 4. The left ventricular diastolic function is grade I diastolic dysfunction. 5. E/e' 13 is mildly elevated. 6. Left atrial chamber dimension is mildly enlarged. 7. There is moderate aortic valve sclerosis. 8. There is mild aortic valve stenosis with a peak velocity of 247.83 cm/s, mean gradient of 11 mmHg, and aortic valve area of 1.56 cm2. 9. The mitral valve has severely calcified annulus. 10. No pulmonary hypertension, estimated pulmonary arterial systolic pressure is 21 mmHg. (8) Hyperkalemia: Code(s): E87.5 - Hyperkalemia Status: Acute Assessment and Plan: Patient was treated with calcium gluconate, insulin, dextrose and albuterol. Potassium on admission was 5.7 Patient was dialyzed and hyperkalemia has resolved (9) Insulin dependent diabetes mellitus: Status: Chronic Assessment and Plan: Continue sliding scale insulin Accu-Cheks Increased Lantus does (10) Right hemiparesis: Code(s): G81.91 - Hemiplegia, unspecified affecting right dominant side Status: Acute Assessment and Plan: History of left-sided cerebral hemisphere and CVA, residual mild aphasia and right-sided weakness (11) Seizures: Code(s): R56.9 - Unspecified convulsions Status: Acute Assessment and Plan: Patient has a history of seizures, on p.o. Keppra 500 mg p.o. q.12 hours Continue Keppra IV 500 mg IV q.24 (discuss with pharmacist) EEG has been done and report is pending (12) Hypertension: Code(s): I10 - Essential (primary) hypertension Status: Acute Assessment and Plan: Continue metoprolol and amlodipine Add hydralazine Plan DVT prophylaxis: Heparin SQ Stress ulcer prophylaxis: Protonix Nutrition: Continue tube feeds Code Status: Full code Critical Care Time Spent: 30 minutes Due to a high probability of clinically significant, life threatening deterioration, the patient required my highest level of preparedness to intervene emergently and I personally spent this critical care time directly and personally managing the patient. This critical care time included obtaining a history; examining the patient; pulse oximetry; ordering and review of studies; arranging urgent treatment with development of a management plan; evaluation of patient's response to treatment; frequent reassessment; and discussions with other providers. It was exclusive of separately billable procedures and treating other patients and teaching time. Please see Assessment and Plan section and the rest of the note for further information on patient assessment and treatment This dictation may have been done utilizing a voice recognition system. Attempts have been made to correct errors. However, there may be uncorrected grammatical, spelling, and recognitions errors present. Subjective Date/time seen: 01/13/24 Overnight events reviewed. Continues to have low-grade fever Continues to be on mechanical ventilation 21% FiO2 Off vasopressors and blood pressure elevated. Off sedatives Good urine output. Tolerating tube feeds. Other Vitals acceptable Minimal improvement in mental status. Review of Systems Review of Systems: ROS unobtainable: Yes unobtainable due to endotracheal tube, unobtainable due to medical condition and unobtainable due to mental status Exam Narrative: General: Intubated and sedated HEENT:? Pupils are equal, sluggishly reactive to light, sclera is clear, ETT in place Neck:? Supple, right IJ dialysis catheter in place Respiratory:? Coarse breath sounds bilaterally, decreased at bases no wheezing, adequate air entry Cardiac:? S1-S2 normal, regular rate and rhythm, Abdomen:? Soft, nontender, nondistended, hypoactive bowel sounds, old midline surgical scar noted Extremities:? Dry skin, decreased pedal pulses, no edema Neuro:? Patient is intubated, off sedation, PERRL, minimal grimace response to sternal painful stimuli. Opens her eyes on stimulation but does not regard examiner or is responsive. No withdrawal to pain in the extremities. Skin:? Dry and flaky skin on lower extremities, skin is warm Psych:? Unable to assess at this time Objective Data Vital Signs Vital Signs: Vital Signs - 24 hr 01/12/24 09:00 01/12/24 09:00 01/12/24 09:07 Temperature 38.7 C H Pulse Rate 99 94 Respiratory Rate 16 Blood Pressure 174/78 H 156/76 H Pulse Oximetry Oxygen Delivery Fraction of Inspired Oxygen 21 01/12/24 09:15 01/12/24 09:30 01/12/24 09:45 Temperature Pulse Rate 94 93 92 Respiratory Rate Blood Pressure 135/74 116/69 114/64 Pulse Oximetry Oxygen Delivery Fraction of Inspired Oxygen 01/12/24 10:00 01/12/24 10:00 01/12/24 10:00 Temperature 38.6 C H Pulse Rate 92 92 91 Respiratory Rate 22 H Blood Pressure 91/57 L 90/61 L Pulse Oximetry 100 Oxygen Delivery Fraction of Inspired Oxygen 01/12/24 10:30 01/12/24 10:15 01/12/24 09:20 Temperature 38.6 C H Pulse Rate 82 82 Respiratory Rate Blood Pressure 99/57 L 78/53 L Pulse Oximetry Oxygen Delivery Fraction of Inspired Oxygen 01/12/24 10:45 01/12/24 10:50 01/12/24 11:00 Temperature Pulse Rate 78 79 78 Respiratory Rate Blood Pressure 94/55 L 84/53 L Pulse Oximetry 100 Oxygen Delivery Mechanical Ventilation Fraction of Inspired Oxygen 21 01/12/24 11:15 01/12/24 11:30 01/12/24 11:45 Temperature Pulse Rate 77 78 77 Respiratory Rate Blood Pressure 84/51 L 86/52 L 89/55 L Pulse Oximetry Oxygen Delivery Fraction of Inspired Oxygen 01/12/24 12:00 01/12/24 12:00 01/12/24 12:00 Temperature Pulse Rate 78 78 Respiratory Rate Blood Pressure 115/59 L Pulse Oximetry Oxygen Delivery Mechanical Ventilation Fraction of Inspired Oxygen 21 01/12/24 12:00 01/12/24 12:00 01/12/24 12:15 Temperature 37.7 C H Pulse Rate 77 78 Respiratory Rate 18 Blood Pressure 115/59 L 153/65 H Pulse Oximetry 100 Oxygen Delivery Fraction of Inspired Oxygen 21 01/12/24 12:37 01/12/24 12:30 01/12/24 14:00 Temperature 37.4 C Pulse Rate 84 84 88 Respiratory Rate 16 Blood Pressure 167/73 H 157/68 H Pulse Oximetry Oxygen Delivery Fraction of Inspired Oxygen 01/12/24 14:00 01/12/24 15:00 01/12/24 16:00 Temperature 37.7 C H Pulse Rate 88 92 90 Respiratory Rate 14 Blood Pressure 156/81 H Pulse Oximetry 99 100 Oxygen Delivery Mechanical Ventilation Fraction of Inspired Oxygen 21 01/12/24 16:00 01/12/24 16:00 01/12/24 16:00 Temperature 37.9 C H Pulse Rate 90 Respiratory Rate 17 Blood Pressure 167/75 H Pulse Oximetry 100 Oxygen Delivery Mechanical Ventilation Fraction of Inspired Oxygen 21 21 01/12/24 17:25 01/12/24 18:00 01/12/24 18:00 Temperature 37.8 C H Pulse Rate 85 83 83 Respiratory Rate 17 Blood Pressure 127/64 Pulse Oximetry 100 100 Oxygen Delivery Mechanical Ventilation Fraction of Inspired Oxygen 21 01/12/24 20:00 01/12/24 20:14 01/12/24 20:00 Temperature 37.7 C H Pulse Rate 85 85 Respiratory Rate 16 Blood Pressure 140/63 Pulse Oximetry 100 Oxygen Delivery Fraction of Inspired Oxygen 21 01/12/24 20:05 01/12/24 20:00 01/12/24 20:00 Temperature Pulse Rate 83 86 Respiratory Rate Blood Pressure Pulse Oximetry 100 Oxygen Delivery Mechanical Ventilation Mechanical Ventilation Fraction of Inspired Oxygen 21 21 01/12/24 22:00 01/12/24 22:00 01/13/24 00:00 Temperature 37.8 C H 37.7 C H Pulse Rate 77 77 87 Respiratory Rate 15 16 Blood Pressure 124/60 196/82 H Pulse Oximetry 100 100 Oxygen Delivery Fraction of Inspired Oxygen 01/13/24 00:41 01/13/24 01:00 01/13/24 00:00 Temperature 37.7 C H Pulse Rate 90 79 Respiratory Rate 17 Blood Pressure 149/74 H Pulse Oximetry 100 Oxygen Delivery Mechanical Ventilation Fraction of Inspired Oxygen 21 01/13/24 00:00 01/13/24 00:00 01/12/24 23:00 Temperature Pulse Rate 91 91 Respiratory Rate Blood Pressure Pulse Oximetry 100 Oxygen Delivery Mechanical Ventilation Fraction of Inspired Oxygen 21 21 01/13/24 02:00 01/13/24 02:00 01/13/24 02:07 Temperature 37.7 C H Pulse Rate 86 86 84 Respiratory Rate 16 Blood Pressure 142/63 H Pulse Oximetry 100 100 Oxygen Delivery Mechanical Ventilation Fraction of Inspired Oxygen 21 01/13/24 04:56 01/13/24 04:00 01/13/24 04:00 Temperature 37.7 C H Pulse Rate 87 92 95 Respiratory Rate 20 Blood Pressure 170/69 H Pulse Oximetry 100 100 Oxygen Delivery Mechanical Ventilation Fraction of Inspired Oxygen 21 01/13/24 04:00 01/13/24 04:00 01/13/24 06:00 Temperature Pulse Rate 98 Respiratory Rate Blood Pressure Pulse Oximetry Oxygen Delivery Mechanical Ventilation Fraction of Inspired Oxygen 21 21 01/13/24 06:00 01/13/24 06:13 01/13/24 08:09 Temperature 37.4 C Pulse Rate 98 98 92 Respiratory Rate 16 Blood Pressure 197/80 H Pulse Oximetry 100 100 Oxygen Delivery Mechanical Ventilation Fraction of Inspired Oxygen 21 01/13/24 08:00 01/13/24 08:12 Temperature 37.8 C H Pulse Rate 86 90 Respiratory Rate 18 Blood Pressure 180/76 H Pulse Oximetry 99 Oxygen Delivery Fraction of Inspired Oxygen Intake/Output Intake/Output: Intake & Output 01/10/24 01/11/24 01/12/24 01/13/24 23:59 23:59 23:59 23:59 Intake Total 1384 1666 1766 755 Output Total 0220 3664 0636 850 [facility] [phone] Meds/Results Medications: Active Medications Generic Name Dose Route Start Last Admin Trade Name Freq PRN Reason Stop Dose Admin Acetaminophen 650 mg 01/10/24 08:02 01/12/24 08:20 Acetaminophen 325 Mg Tablet FEED TUBE 650 mg Q6H PRN Administration Mild Pain (1-3) or Fever Amlodipine Besylate 10 mg 01/11/24 14:05 01/13/24 08:13 Amlodipine Besylate 10 Mg Tablet FEED TUBE 10 mg DAILY CARMELA Administration Aspirin 325 mg 01/12/24 16:00 01/13/24 08:12 Aspirin 325 Mg Tablet FEED TUBE 325 mg DAILY@0800 CARMELA Administration Dextrose 12.5 gm 01/07/24 13:18 Dextrose 50% 25 Gm/50 Ml Syringe IV PUSH PRN PRN Hypoglycemia Protocol Epoetin Dane-epbx 10,000 units 01/12/24 09:20 01/12/24 11:55 Epoetin Dane-Epbx 10,000 Units/Ml Vial SUB-Q 10,000 units MOWEFR@09 CARMELA Administration Glucagon 1 mg 01/07/24 13:18 Glucagon For Inj 1 Mg Vial IM PRN PRN Hypoglycemia Protocol Glucose 15 gm 01/07/24 13:18 Glucose Oral Gel 15 Gm Of Glucse In 37.5 Gm Tube PO PRN PRN Hypoglycemia Protocol Heparin Sodium (Porcine) 5,000 units 01/07/24 21:00 01/13/24 08:13 Heparin Sodium 5,000 Units/Ml Vial SUB-Q 5,000 units Q12HR CARMELA Administration Hydralazine HCl 10 mg 01/12/24 08:00 01/13/24 08:12 Hydralazine 10 Mg Tablet FEED TUBE 10 mg Q6H CARMELA Administration Dextrose 1,000 mls @ 100 mls/hr 01/07/24 13:18 Dextrose 5% 1,000 Ml IVPB PRN PRN Hypoglycemia Protocol Albumin Human 50 mls @ 999 mls/hr 01/07/24 17:11 01/12/24 10:30 Albutein IVPB 02/06/24 17:10 Infused Q10M PRN Infusion HYPOTENSION Levetiracetam 500 mg in 100 mls @ 400 mls/hr 01/07/24 21:00 01/12/24 20:30 Keppra Iv IVPB Infused Q24H CARMELA Infusion Cefepime HCl 1 gm in 50 mls @ 100 mls/hr 01/12/24 12:00 01/13/24 00:42 Maxipime 1 Gm/Ns 50 Ml IVPB Infused Q12H CARMELA Infusion Potassium Phosphate 20 mmol/ 256.6667 mls @ 64.167 mls/hr 01/13/24 07:53 Sodium Chloride IVPB 01/13/24 11:52 ONCE ONE Insulin Aspart 4 - 8 units 01/10/24 07:55 01/13/24 08:13 Insulin Aspart (*Bkc) 100 Units/Ml SUB-Q 6 units Q4H CARMELA Administration Protocol Insulin Glargine 55 units 01/13/24 09:00 01/13/24 08:14 Insulin Glargine (*Bkc) 100 Units/Ml SUB-Q 55 units QAM CARMELA Administration Labetalol HCl 20 mg 01/08/24 14:39 01/13/24 06:13 Labetalol Hcl Inj 100 Mg/20 Ml Vial IV PUSH 20 mg Q4H PRN Administration Hypertension Metoprolol Tartrate 50 mg 01/12/24 09:00 01/13/24 08:12 Metoprolol Tartrate 50 Mg Tab FEED TUBE 50 mg Q12HR CARMELA Administration Multi-Ingred Cream/Lotion/Oil/Oint 1 applic 01/07/24 21:00 01/13/24 08:15 Mineral Oil/White Petrolatum Ointment EACH EYE 1 applic Q12HR CARMELA Administration Pantoprazole Sodium 40 mg 01/07/24 21:00 01/13/24 08:15 Pantoprazole Sodium Iv 40 Mg Vial IV PUSH 40 mg Q12HR CARMELA Administration Perflutren Lipid Microsphere 0 ml 01/12/24 16:00 Perflutren Lipid Microspheres 1.5 Ml Vial Diluted To 10 Ml Total Volume IV PUSH 01/15/24 16:01 ONCE PRN adequate visualization Protocol Vancomycin HCl 1 each 01/12/24 09:22 Vancomycin For Hemodialysis IVPB PRN PRN Vancomycin Protocol Radiology Results: ITS Impressions Abdomen/Pelvis CT 01/07/24 16:52 IMPRESSION: No acute abdominopelvic process. Specifically, there is no CT evidence of bowel obstruction. No definite evidence of renal injury, noting that low-grade renal injury as can be difficult to detect without contrast. Renal Ultrasound 01/08/24 10:47 IMPRESSION: 1. Normal kidney sizes. No hydronephrosis. Chest/Abdomen/Pelvis CT 01/12/24 15:08 IMPRESSION: Interval enlargement of the liver, when compared with previous examination. Flattening of the inferior vena cava suggesting severe hypovolemia. Interval development of basilar atelectasis and trace bilateral pleural effusions. No additional findings which represents a change from prior examination performed 01/07/2024. Supportive devices are in good position. Redemonstration of multiple stones within the gallbladder which is not distended. Head CT 01/12/24 15:31 IMPRESSION: 1. 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 2. Large distribution of chronic encephalomalacia in the expected distribution of left middle cerebral artery. Chest X-Ray 01/13/24 06:26 IMPRESSION: 1. Mild atelectasis at left lung base. Labs Labs: Laboratory Results - last 24 hr 01/12/24 01/12/24 01/12/24 05:49 09:59 11:54 WBC RBC Hgb Hct MCV MCH MCHC RDW Plt Count MPV Puncture Site ABG pH ABG pCO2 ABG pO2 ABG PO2/FiO2 Ratio ABG HCO3 ABG O2 Saturation ABG O2 Content ABG Base Excess A-a Gradient Oxyhemoglobin Carboxyhemoglobin Methemoglobin Reduced Hemoglobin Total Hemoglobin O2 Delivery Device O2 Liters/Min Vent Rate Vent Mode FiO2 Tidal Volume PEEP Sodium Potassium Chloride Carbon Dioxide Anion Gap BUN Creatinine Estim Creat Clear Calc Estimated GFR Glucose POC Capillary Glucose 156 H Calcium Phosphorus Magnesium Total Bilirubin AST ALT Alkaline Phosphatase Total Protein Albumin Procalcitonin 0.9 Nasal MRSA (PCR) Not detected Random Vancomycin 01/12/24 01/12/24 01/13/24 16:09 20:27 00:11 WBC RBC Hgb Hct MCV MCH MCHC RDW Plt Count MPV Puncture Site ABG pH ABG pCO2 ABG pO2 ABG PO2/FiO2 Ratio ABG HCO3 ABG O2 Saturation ABG O2 Content ABG Base Excess A-a Gradient Oxyhemoglobin Carboxyhemoglobin Methemoglobin Reduced Hemoglobin Total Hemoglobin O2 Delivery Device O2 Liters/Min Vent Rate Vent Mode FiO2 Tidal Volume PEEP Sodium Potassium Chloride Carbon Dioxide Anion Gap BUN Creatinine Estim Creat Clear Calc Estimated GFR Glucose POC Capillary Glucose 308 H 293 H 353 H Calcium Phosphorus Magnesium Total Bilirubin AST ALT Alkaline Phosphatase Total Protein Albumin Procalcitonin Nasal MRSA (PCR) Random Vancomycin 01/13/24 01/13/24 01/13/24 03:30 04:46 04:56 WBC 8.2 RBC 2.67 L Hgb 7.9 L Hct 25.9 L MCV 97.0 MCH 29.6 MCHC 30.5 L RDW 13.4 Plt Count 228 MPV 10.8 H Puncture Site Left brachial ABG pH 7.481 H ABG pCO2 35.7 ABG pO2 83.5 ABG PO2/FiO2 Ratio 3.98 ABG HCO3 26.0 ABG O2 Saturation 96.9 ABG O2 Content 12.1 L ABG Base Excess 2.5 A-a Gradient 23.5 Oxyhemoglobin 95.4 Carboxyhemoglobin 0.6 Methemoglobin 0.2 Reduced Hemoglobin 3.8 Total Hemoglobin 8.9 L O2 Delivery Device Ventilator O2 Liters/Min Not Reportable Vent Rate 14 Vent Mode Cmv FiO2 21 Tidal Volume 300 PEEP 5 Sodium 140 Potassium 3.8 Chloride 105 Carbon Dioxide 29 Anion Gap 6 BUN 31 H D Creatinine 2.10 H Estim Creat Clear Calc 25 Estimated GFR 24 L Glucose 303 H POC Capillary Glucose 290 H Calcium 8.7 Phosphorus 1.8 L Magnesium 2.0 Total Bilirubin 0.3 AST 37 H ALT 36 H Alkaline Phosphatase 89 Total Protein 7.0 Albumin 3.2 L Procalcitonin Nasal MRSA (PCR) Random Vancomycin 15.6 01/13/24 08:03 WBC RBC Hgb Hct MCV MCH MCHC RDW Plt Count MPV Puncture Site ABG pH ABG pCO2 ABG pO2 ABG PO2/FiO2 Ratio ABG HCO3 ABG O2 Saturation ABG O2 Content ABG Base Excess A-a Gradient Oxyhemoglobin Carboxyhemoglobin Methemoglobin Reduced Hemoglobin Total Hemoglobin O2 Delivery Device O2 Liters/Min Vent Rate Vent Mode FiO2 Tidal Volume PEEP Sodium Potassium Chloride Carbon Dioxide Anion Gap BUN Creatinine Estim Creat Clear Calc Estimated GFR Glucose POC Capillary Glucose 338 H Calcium Phosphorus Magnesium Total Bilirubin AST ALT Alkaline Phosphatase Total Protein Albumin Procalcitonin Nasal MRSA (PCR) Random Vancomycin Quality VTE Prophylaxis VTE prophylaxis: mechanical ordered and pharmacologic ordered
[2024-01-13] MEDS: POTASSIUM PHOS,M-BASIC-D-BASIC 20 MMOL in SODIUM CHLORIDE 0.9% IV 250 ML 64.17 MMOL IVPB (08:37)
--- NOTE | 2024-01-13 10:17 | PM.EVENT ---
Event Note Event Note Event Note: I met with patient's younger son at bedside updated him with patient's status and events or last 24 hours. We also discuss findings of CT results. He is going to get his brother and dad for further discussion regarding goals of care. In light of current findings patient appears to have poor prognosis overall. Later I met with patient's both children and in the conference room in presence of patient's nurse Apurva and used virtual bilingual interpreter [employer]. I discussed in detail the patient's presentation, hospital course, treatment plan, lack of neurological improvement and CT scan findings. I updated them that we have a EEG and echo pending and Neurology consultation pending at this time. I explained them that her prognosis is guarded. Patient at baseline was bed bound and needed help getting into wheelchair. She had difficulty with speech and swallowing. She was paralyzed on the right side for. We discussed goals of care and code status. The family has decided, in accordance with patient's wishes and in consideration of patient's current quality of life and current situation, to continue medical therapy but do not resuscitate pt in case of cardiac arrest. I have made pt DNR in chart. Total time spent 35 minutes in meetings and advance care planning.
[2024-01-13] MEDS: ATORVASTATIN 40 MG TABLET FEED TUBE (10:52)
[2024-01-13] MEDS: VANCOMYCIN 1,250 MG/NS 250 ML 1,250 MG/250 ML BAG 166.67 MG IVPB (11:03)
[2024-01-13 12:08] LABS: Glucose Point of Care 348 mg/dl (65-105)
[2024-01-13 12:17] LABS: Glucose Point of Care 337 mg/dl (65-105)
--- NOTE | 2024-01-13 14:21 | P.PNIM_ITS ---
Progress Note: A&P Assessment and Plan (1) Stroke: Code(s): I63.9 - Cerebral infarction, unspecified Status: Acute Assessment and Plan: Patient presented with altered mental status but at that time patient was respiratory failure acute renal failure acidosis and sepsis. CT scan on presentation showed only old stroke and encephalomalacia Since then patient has not woken up despite holding sedation for multiple days and dialysis. 01/[address] was done which showed. 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 These could be embolic versus secondary to hypotension Echo has been ordered Continue aspirin and statin Neurology consult EEG ordered and pending (2) Acute kidney failure: Code(s): N17.9 - Acute kidney failure, unspecified Status: Acute Assessment and Plan: On chronic kidney injury, unknown cause, CT of the abdomen and pelvis did not show any hydronephrosis or urinary obstruction -significant lactic acidosis and metabolic acidosis -patient has a history of diabetes, hypertension which is likely the cause of chronic kidney disease -patient on lisinopril hydrochlorothiazide and metformin at home -patient was given a total of 3 L IV fluid bolus, 1 L in the ER and 2 L in the ICU -sodium bicarb IV pushes x4 in the ICU -patient was started on sodium bicarb infusion after discussing with Nephrology -patient was started on hemodialysis and was dialyzed x 2 days -urine output has improved - 01/11 patient was dialyzed again 1 L fluid was removed -continue to monitor urine output, electrolytes and renal function (3) Metabolic acidosis: Code(s): E87.20 - Acidosis, unspecified Status: Acute Assessment and Plan: Patient presented with significant metabolic acidosis and lactic acidosis. This could be combination of septic shock, acute kidney injury but also a possibility of metformin toxicity Patient received hemodialysis and IV bicarb. Acidosis has resolved. Further dialysis per Nephrology Monitor (4) Acute respiratory failure: Code(s): J96.00 - Acute respiratory failure, unspecified whether with hypoxia or hypercapnia Status: Acute Assessment and Plan: Patient had an episode of emesis in the ER, given her altered mental status encephalopathy, risk of aspiration with impending respiratory failure patient was intubated on 01/06/2025 -currently on CMV mode of ventilation, peep of 5, 50% FiO2 -ABG reviewed and continue vent rate to 14 and tidal volume to 300 -chest x-ray reviewed -sedation is on hold. -weaning will depend on improvement in mental status. (5) Septic shock: Code(s): A41.9 - Sepsis, unspecified organism; R65.21 - Severe sepsis with septic shock Status: Acute Assessment and Plan: Patient hypotensive on presentation Patient was given IV fluid bolus followed by maintenance IV fluids -lactic acid has improved -Levophed weaned off -off IV fluids -source appears to be UTI. Urine and blood cultures are negative till now -continue Rocephin -discontinue stress dose steroids - 01/10 continues to have fever although other markers of infection are improved as normal WBC. Repeat blood cultures sent and pending Clark catheter change 01/11 Minimal respiratory secretions, sputum cultures growing yeast which is likely a colonization Change Rocephin to cefepime and vancomycin Obtain CT scan 01/12 continues to have low-grade fever but overall fever curve is down.. White count is normal. CT scan of chest and pelvis does not show any area suggestive of infection. Clark catheter was changed. Procalcitonin level is also on the lower side. Continue cefepime and vancomycin at this time. Cultures are pending. (6) Encephalopathy: Code(s): G93.40 - Encephalopathy, unspecified Status: Acute Assessment and Plan: Patient presented with encephalopathy, altered mental status, delirium, confusion -most likely related to uremia, infection, severe acidosis and baseline flow malacia from past stroke -head CT IMPRESSION: 1. No acute intracranial process. 2. 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 3. Additional more diffuse likely age-related mild to moderate diffuse volume loss and mild scattered white matter hypoattenuation consistent with chronic small vessel ischemic disease. TSH and ammonia normal Patient now is off sedation since x 4 days. Still not responsive.. Will continue hold sedatives. EEG ordered and pending Patient was dialyzed 01/11 to help with drug removal. Minimal response Sees encephalopathy likely secondary to strokes. See above. Neurology consulted (7) Diastolic dysfunction: Code(s): I51.89 - Other ill-defined heart diseases Status: Acute Assessment and Plan: 12/07/2021 echocardiogram: Summary 1. Left ventricular chamber dimension is normal. 2. Left ventricular systolic function is normal, estimated at 65-70%. 3. There is moderately increased left ventricular wall thickness. 4. The left ventricular diastolic function is grade I diastolic dysfunction. 5. E/e' 13 is mildly elevated. 6. Left atrial chamber dimension is mildly enlarged. 7. There is moderate aortic valve sclerosis. 8. There is mild aortic valve stenosis with a peak velocity of 247.83 cm/s, mean gradient of 11 mmHg, and aortic valve area of 1.56 cm2. 9. The mitral valve has severely calcified annulus. 10. No pulmonary hypertension, estimated pulmonary arterial systolic pressure is 21 mmHg. (8) Hyperkalemia: Code(s): E87.5 - Hyperkalemia Status: Acute Assessment and Plan: Patient was treated with calcium gluconate, insulin, dextrose and albuterol. Potassium on admission was 5.7 Patient was dialyzed and hyperkalemia has resolved (9) Insulin dependent diabetes mellitus: Status: Chronic Assessment and Plan: Continue sliding scale insulin Accu-Cheks Increased Lantus does (10) Right hemiparesis: Code(s): G81.91 - Hemiplegia, unspecified affecting right dominant side Status: Acute Assessment and Plan: History of left-sided cerebral hemisphere and CVA, residual mild aphasia and right-sided weakness (11) Seizures: Code(s): R56.9 - Unspecified convulsions Status: Acute Assessment and Plan: Patient has a history of seizures, on p.o. Keppra 500 mg p.o. q.12 hours Continue Keppra IV 500 mg IV q.24 (discuss with pharmacist) EEG has been done and report is pending (12) Hypertension: Code(s): I10 - Essential (primary) hypertension Status: Acute Assessment and Plan: Continue metoprolol and amlodipine Add hydralazine Subjective Date/time seen: 01/13/24 14:21 Interval history: Wire Technician discussed with the family about goals of care. Patient current status is DNR. Review of Systems Review of Systems: Unable to obtain given clinical condition as detailed above. ROS unobtainable: Yes unobtainable due to endotracheal tube, unobtainable due to medical condition and unobtainable due to mental status Exam Narrative: General: Intubated and sedated HEENT:? Pupils are equal, sluggishly reactive to light, sclera is clear, ETT in place Neck:? Supple, right IJ dialysis catheter in place Respiratory:? Coarse breath sounds bilaterally, decreased at bases no wheezing, adequate air entry Cardiac:? S1-S2 normal, regular rate and rhythm, Abdomen:? Soft, nontender, nondistended, hypoactive bowel sounds, old midline surgical scar noted Extremities:? Dry skin, decreased pedal pulses, no edema Neuro:? Patient is intubated, off sedation, PERRL, minimal grimace response to sternal painful stimuli. Opens her eyes on stimulation but does not regard examiner or is responsive. No withdrawal to pain in the extremities. Skin:? Dry and flaky skin on lower extremities, skin is warm Psych:? Unable to assess at this time Objective Data Vital Signs Vital Signs: Vital Signs - 24 hr 01/12/24 15:00 01/12/24 16:00 01/12/24 16:00 Temperature Pulse Rate 92 90 Respiratory Rate Blood Pressure Pulse Oximetry 100 Oxygen Delivery Mechanical Ventilation Mechanical Ventilation Fraction of Inspired Oxygen 21 21 01/12/24 16:00 01/12/24 16:00 01/12/24 17:25 Temperature 100.3 F H Pulse Rate 90 85 Respiratory Rate 17 Blood Pressure 167/75 H Pulse Oximetry 100 100 Oxygen Delivery Mechanical Ventilation Fraction of Inspired Oxygen 21 21 01/12/24 18:00 01/12/24 18:00 01/12/24 20:00 Temperature 100.1 F H 100 F H Pulse Rate 83 83 85 Respiratory Rate 17 16 Blood Pressure 127/64 140/63 Pulse Oximetry 100 100 Oxygen Delivery Fraction of Inspired Oxygen 01/12/24 20:14 01/12/24 20:00 01/12/24 20:05 Temperature Pulse Rate 85 83 Respiratory Rate Blood Pressure Pulse Oximetry 100 Oxygen Delivery Mechanical Ventilation Fraction of Inspired Oxygen 21 21 01/12/24 20:00 01/12/24 20:00 01/12/24 22:00 Temperature Pulse Rate 86 77 Respiratory Rate Blood Pressure Pulse Oximetry Oxygen Delivery Mechanical Ventilation Fraction of Inspired Oxygen 21 01/12/24 22:00 01/13/24 00:00 01/13/24 00:41 Temperature 100.0 F H 99.8 F H Pulse Rate 77 87 90 Respiratory Rate 15 16 Blood Pressure 124/60 196/82 H Pulse Oximetry 100 100 Oxygen Delivery Fraction of Inspired Oxygen 01/13/24 01:00 01/13/24 00:00 01/13/24 00:00 Temperature 99.8 F H Pulse Rate 79 Respiratory Rate 17 Blood Pressure 149/74 H Pulse Oximetry 100 Oxygen Delivery Mechanical Ventilation Fraction of Inspired Oxygen 21 21 01/13/24 00:00 01/12/24 23:00 01/13/24 02:00 Temperature Pulse Rate 91 91 86 Respiratory Rate Blood Pressure Pulse Oximetry 100 Oxygen Delivery Mechanical Ventilation Fraction of Inspired Oxygen 21 01/13/24 02:00 01/13/24 02:07 01/13/24 04:56 Temperature 99.9 F H Pulse Rate 86 84 87 Respiratory Rate 16 Blood Pressure 142/63 H Pulse Oximetry 100 100 100 Oxygen Delivery Mechanical Ventilation Mechanical Ventilation Fraction of Inspired Oxygen 21 21 01/13/24 04:00 01/13/24 04:00 01/13/24 04:00 Temperature 99.8 F H Pulse Rate 92 95 Respiratory Rate 20 Blood Pressure 170/69 H Pulse Oximetry 100 Oxygen Delivery Mechanical Ventilation Fraction of Inspired Oxygen 21 01/13/24 04:00 01/13/24 06:00 01/13/24 06:00 Temperature 99.3 F Pulse Rate 98 98 Respiratory Rate 16 Blood Pressure 197/80 H Pulse Oximetry 100 Oxygen Delivery Fraction of Inspired Oxygen 21 01/13/24 06:13 01/13/24 08:09 01/13/24 08:00 Temperature 100.0 F H Pulse Rate 98 92 86 Respiratory Rate 18 Blood Pressure 180/76 H Pulse Oximetry 100 99 Oxygen Delivery Mechanical Ventilation Fraction of Inspired Oxygen 21 01/13/24 08:12 01/13/24 08:00 01/13/24 08:00 Temperature Pulse Rate 90 91 91 Respiratory Rate 18 Blood Pressure Pulse Oximetry 100 Oxygen Delivery Mechanical Ventilation Fraction of Inspired Oxygen 21 01/13/24 08:00 01/13/24 10:00 01/13/24 10:00 Temperature 100.3 F H Pulse Rate 78 77 Respiratory Rate 20 Blood Pressure 113/61 Pulse Oximetry 100 Oxygen Delivery Fraction of Inspired Oxygen 21 01/13/24 11:09 01/13/24 12:00 01/13/24 12:00 Temperature 100.1 F H Pulse Rate 85 89 97 Respiratory Rate 18 Blood Pressure 165/70 H Pulse Oximetry 100 100 Oxygen Delivery Mechanical Ventilation Fraction of Inspired Oxygen 21 01/13/24 12:00 01/13/24 12:00 01/13/24 14:00 Temperature Pulse Rate 85 93 Respiratory Rate 18 Blood Pressure Pulse Oximetry 100 99 Oxygen Delivery Mechanical Ventilation Mechanical Ventilation Fraction of Inspired Oxygen 21 21 21 Intake/Output Intake/Output: Intake & Output 01/10/24 01/11/24 01/12/24 01/13/24 23:59 23:59 23:59 23:59 Intake Total 1384 1666 1766 755 Output Total 3173 2778 1156 850 [facility] [phone] Meds/Results Medications: Active Medications Generic Name Dose Route Start Last Admin Trade Name Freq PRN Reason Stop Dose Admin Acetaminophen 650 mg 01/10/24 08:02 01/12/24 08:20 Acetaminophen 325 Mg Tablet FEED TUBE 650 mg Q6H PRN Administration Mild Pain (1-3) or Fever Amlodipine Besylate 10 mg 01/11/24 14:05 01/13/24 08:13 Amlodipine Besylate 10 Mg Tablet FEED TUBE 10 mg DAILY CARMELA Administration Aspirin 325 mg 01/12/24 16:00 01/13/24 08:12 Aspirin 325 Mg Tablet FEED TUBE 325 mg DAILY@0800 CARMELA Administration Atorvastatin Calcium 40 mg 01/13/24 09:00 01/13/24 10:52 Atorvastatin 40 Mg Tablet FEED TUBE 40 mg DAILY CARMELA Administration Dextrose 12.5 gm 01/07/24 13:18 Dextrose 50% 25 Gm/50 Ml Syringe IV PUSH PRN PRN Hypoglycemia Protocol Epoetin Dane-epbx 10,000 units 01/12/24 09:20 01/12/24 11:55 Epoetin Dane-Epbx 10,000 Units/Ml Vial SUB-Q 10,000 units MOWEFR@09 CARMELA Administration Glucagon 1 mg 01/07/24 13:18 Glucagon For Inj 1 Mg Vial IM PRN PRN Hypoglycemia Protocol Glucose 15 gm 01/07/24 13:18 Glucose Oral Gel 15 Gm Of Glucse In 37.5 Gm Tube PO PRN PRN Hypoglycemia Protocol Heparin Sodium (Porcine) 5,000 units 01/07/24 21:00 01/13/24 08:13 Heparin Sodium 5,000 Units/Ml Vial SUB-Q 5,000 units Q12HR CARMELA Administration Hydralazine HCl 10 mg 01/12/24 08:00 01/13/24 13:49 Hydralazine 10 Mg Tablet FEED TUBE 10 mg Q6H CARMELA Administration Dextrose 1,000 mls @ 100 mls/hr 01/07/24 13:18 Dextrose 5% 1,000 Ml IVPB PRN PRN Hypoglycemia Protocol Albumin Human 50 mls @ 999 mls/hr 01/07/24 17:11 01/12/24 10:30 Albutein IVPB 02/06/24 17:10 Infused Q10M PRN Infusion HYPOTENSION Levetiracetam 500 mg in 100 mls @ 400 mls/hr 01/07/24 21:00 01/12/24 20:30 Keppra Iv IVPB Infused Q24H CARMELA Infusion Cefepime HCl 1 gm in 50 mls @ 100 mls/hr 01/12/24 12:00 01/13/24 11:16 Maxipime 1 Gm/Ns 50 Ml IVPB 100 mls/hr Q12H CARMELA Administration Vancomycin HCl 1,250 mg in 250 mls @ 166.667 mls/hr 01/13/24 11:00 01/13/24 11:03 Vancomycin 1,250 Mg/Ns 250 Ml IVPB 166.67 mls/hr Q36H CARMELA Administration Insulin Aspart 4 - 8 units 01/10/24 07:55 01/13/24 11:08 Insulin Aspart (*Bkc) 100 Units/Ml SUB-Q 6 units Q4H CARMELA Administration Protocol Insulin Glargine 55 units 01/13/24 09:00 01/13/24 08:14 Insulin Glargine (*Bkc) 100 Units/Ml SUB-Q 55 units QAM CARMELA Administration Labetalol HCl 20 mg 01/08/24 14:39 01/13/24 06:13 Labetalol Hcl Inj 100 Mg/20 Ml Vial IV PUSH 20 mg Q4H PRN Administration Hypertension Metoprolol Tartrate 50 mg 01/12/24 09:00 01/13/24 08:12 Metoprolol Tartrate 50 Mg Tab FEED TUBE 50 mg Q12HR CARMELA Administration Multi-Ingred Cream/Lotion/Oil/Oint 1 applic 01/07/24 21:00 01/13/24 08:15 Mineral Oil/White Petrolatum Ointment EACH EYE 1 applic Q12HR CARMELA Administration Pantoprazole Sodium 40 mg 01/07/24 21:00 01/13/24 08:15 Pantoprazole Sodium Iv 40 Mg Vial IV PUSH 40 mg Q12HR CARMELA Administration Perflutren Lipid Microsphere 0 ml 01/12/24 16:00 Perflutren Lipid Microspheres 1.5 Ml Vial Diluted To 10 Ml Total Volume IV PUSH 01/15/24 16:01 ONCE PRN adequate visualization Protocol Radiology Results: ITS Impressions Abdomen/Pelvis CT 01/07/24 16:52 IMPRESSION: No acute abdominopelvic process. Specifically, there is no CT evidence of bowel obstruction. No definite evidence of renal injury, noting that low-grade renal injury as can be difficult to detect without contrast. Renal Ultrasound 01/08/24 10:47 IMPRESSION: 1. Normal kidney sizes. No hydronephrosis. Chest/Abdomen/Pelvis CT 01/12/24 15:08 IMPRESSION: Interval enlargement of the liver, when compared with previous examination. Flattening of the inferior vena cava suggesting severe hypovolemia. Interval development of basilar atelectasis and trace bilateral pleural effusions. No additional findings which represents a change from prior examination performed 01/07/2024. Supportive devices are in good position. Redemonstration of multiple stones within the gallbladder which is not distended. Head CT 01/12/24 15:31 IMPRESSION: 1. 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 2. Large distribution of chronic encephalomalacia in the expected distribution of left middle cerebral artery. Chest X-Ray 01/13/24 06:26 IMPRESSION: 1. Mild atelectasis at left lung base. Abdomen Ultrasound 01/13/24 09:31 IMPRESSION: 1. Cholelithiasis. 2. Normal liver Doppler. Arterial/Peripheral Duplex 01/13/24 09:31 IMPRESSION: 1. Cholelithiasis. 2. Normal liver Doppler. Labs Labs: Laboratory Results - last 24 hr 01/12/24 01/12/24 01/13/24 16:09 20:27 00:11 WBC RBC Hgb Hct MCV MCH MCHC RDW Plt Count MPV Puncture Site ABG pH ABG pCO2 ABG pO2 ABG PO2/FiO2 Ratio ABG HCO3 ABG O2 Saturation ABG O2 Content ABG Base Excess A-a Gradient Oxyhemoglobin Carboxyhemoglobin Methemoglobin Reduced Hemoglobin Total Hemoglobin O2 Delivery Device O2 Liters/Min Vent Rate Vent Mode FiO2 Tidal Volume PEEP Sodium Potassium Chloride Carbon Dioxide Anion Gap BUN Creatinine Estim Creat Clear Calc Estimated GFR Glucose POC Capillary Glucose 308 H 293 H 353 H Calcium Phosphorus Magnesium Total Bilirubin AST ALT Alkaline Phosphatase Total Protein Albumin Random Vancomycin 01/13/24 01/13/2401/12/24 03:30 04:46 04:56 WBC 8.2 RBC 2.67 L Hgb 7.9 L Hct 25.9 L MCV 97.0 MCH 29.6 MCHC 30.5 L RDW 13.4 Plt Count 228 MPV 10.8 H Puncture Site Left brachial ABG pH 7.481 H ABG pCO2 35.7 ABG pO2 83.5 ABG PO2/FiO2 Ratio 3.98 ABG HCO3 26.0 ABG O2 Saturation 96.9 ABG O2 Content 12.1 L ABG Base Excess 2.5 A-a Gradient 23.5 Oxyhemoglobin 95.4 Carboxyhemoglobin 0.6 Methemoglobin 0.2 Reduced Hemoglobin 3.8 Total Hemoglobin 8.9 L O2 Delivery Device Ventilator O2 Liters/Min Not Reportable Vent Rate 14 Vent Mode Cmv FiO2 21 Tidal Volume 300 PEEP 5 Sodium 140 Potassium 3.8 Chloride 105 Carbon Dioxide 29 Anion Gap 6 BUN 31 H D Creatinine 2.10 H Estim Creat Clear Calc 25 Estimated GFR 24 L Glucose 303 H POC Capillary Glucose 290 H Calcium 8.7 Phosphorus 1.8 L Magnesium 2.0 Total Bilirubin 0.3 AST 37 H ALT 36 H Alkaline Phosphatase 89 Total Protein 7.0 Albumin 3.2 L Random Vancomycin 15.6 01/13/24 01/13/24 01/13/24 08:03 11:06 11:55 WBC RBC Hgb Hct MCV MCH MCHC RDW Plt Count MPV Puncture Site ABG pH ABG pCO2 ABG pO2 ABG PO2/FiO2 Ratio ABG HCO3 ABG O2 Saturation ABG O2 Content ABG Base Excess A-a Gradient Oxyhemoglobin Carboxyhemoglobin Methemoglobin Reduced Hemoglobin Total Hemoglobin O2 Delivery Device O2 Liters/Min Vent Rate Vent Mode FiO2 Tidal Volume PEEP Sodium Potassium Chloride Carbon Dioxide Anion Gap BUN Creatinine Estim Creat Clear Calc Estimated GFR Glucose POC Capillary Glucose 338 H 348 H 337 H Calcium Phosphorus Magnesium Total Bilirubin AST ALT Alkaline Phosphatase Total Protein Albumin Random Vancomycin Hospitalist MIPS Advance Care Plan I have confirmed that the patient's Advanced Care Plan is present, code status is documented, or surrogate decision maker is listed in patient medical record.: Yes Medication Reconciliation I have utilized all available resources to obtain, update and review the patients current medications (includes all prescriptions, OTC, herbals, cannabis, and nutritional supplements).: Yes
--- NOTE | 2024-01-13 15:19 | P.PNNP_ITS ---
Progress Note: A&P Assessment and Plan (1) Acute kidney failure: Code(s): N17.9 - Acute kidney failure, unspecified Status: Acute Assessment and Plan: * baseline creatinine not known * reported has some underlying renal insufficiency/CKD per family * complicated by severe acidosis and hyperkalemia on admission * etiology likely multifactorial: * infection/sepsis * hemodynamic instability/shock * SRINIVAS-I + HCTZ use prior to admission * possible prerenal factors * metformin use prior to admission * continued BP medications prior to admission * s/p aggressive IVF resuscitation * multiple pushes of IV bicarb on admission * evaluation to date noted: * CT of abd/pelvis and renal ultrasound negative for obstruction * urine eosinophils negative * CPK normal * urine electrolytes non-prerenal * UA suggestive of infection * proteinuria noted * LIPCOAT SPRAYER/HD on 01/06 and 01/07 more so for clearance of uremic toxins and treatment of acidosis * labs look better but still patient is unresponsive off sedatives. * CT showd multiple strokes. * still making urine. * no HD today. see how numbers look tomorrow without a treatment. * Discussed with Dr Mallory. (2) Septic shock: Code(s): A41.9 - Sepsis, unspecified organism; R65.21 - Severe sepsis with septic shock Status: Acute Assessment and Plan: * initially normotensive on presentation * however, worsening hypotension in the ER * s/p aggressive IVF resuscitation * presumsed source = aspiration pneumonia + UTI * follow culture data - negative to date but still with on/off fevers * plan CT scan of C/A/P for further assessment * continue antibiotics * off pressors. * follow trend of hemodynamics (3) Acute respiratory failure: Code(s): J96.00 - Acute respiratory failure, unspecified whether with hypoxia or hypercapnia Status: Acute Assessment and Plan: * due to AMS + emesis and concerns for aspiration and inability to protect airway * intubated and on mechanical ventilation * continue ventilator support - off sedation * weaning as tolerated once mentation improves (4) Acidosis: Code(s): E87.20 - Acidosis, unspecified Status: Acute Assessment and Plan: * resolved * due to a combination of CARMEN, lactic acidosis, and sepsis on admission * s/p multiple pushes of IV bicarb on admission to ICU * LIPCOAT SPRAYER/dialysis x 2 sesssions to help correct acidosis * was also on bicarb gtt and oral bicarbonate -- weaned off * lactic acid has normalized * continue supportive care (5) Hyperkalemia: Code(s): E87.5 - Hyperkalemia Status: Acute Assessment and Plan: * resolved * potassium good today (6) Encephalopathy: Code(s): G93.40 - Encephalopathy, unspecified Status: Acute Assessment and Plan: * as noted by presentation of altered mental status, delirium, and confusion * Ct shows several strokes. * TSH and ammonia levels noted * HD didnt help the mental status * still unresponsive. (7) Insulin dependent diabetes mellitus: Status: Chronic Assessment and Plan: * holding metformin * follow accu-cheks * glycemic control per hospitalists/allergist Will continue to follow. Subjective Date/time seen: 01/13/24 15:19 Interval history: Patient is unable to give history. She is intubated. She is in no distress Exam Narrative: General: somewhat ill appearing female intubated and on mechanical ventilation Heart: normal S1 and S2; no rub or gallop Lungs: coarse breath sounds Abdomen: soft, nontender, nondistended, positive bowel sounds Extremities: no cyanosis or clubbing; no edema Skin: no rash or sq nodules Objective Data Vital Signs Vital Signs: Vital Signs - 24 hr 01/12/24 16:00 01/12/24 16:00 01/12/24 16:00 Temperature Pulse Rate 90 Respiratory Rate Blood Pressure Pulse Oximetry Oxygen Delivery Mechanical Ventilation Fraction of Inspired Oxygen 21 01/12/24 16:00 01/12/24 17:25 01/12/24 18:00 Temperature 100.3 F H Pulse Rate 90 85 83 Respiratory Rate 17 Blood Pressure 167/75 H Pulse Oximetry 100 100 Oxygen Delivery Mechanical Ventilation Fraction of Inspired Oxygen 21 01/12/24 18:00 01/12/24 20:00 01/12/24 20:14 Temperature 100.1 F H 100 F H Pulse Rate 83 85 85 Respiratory Rate 17 16 Blood Pressure 127/64 140/63 Pulse Oximetry 100 100 Oxygen Delivery Fraction of Inspired Oxygen 01/12/24 20:00 01/12/24 20:05 01/12/24 20:00 Temperature Pulse Rate 83 Respiratory Rate Blood Pressure Pulse Oximetry 100 Oxygen Delivery Mechanical Ventilation Mechanical Ventilation Fraction of Inspired Oxygen 21 21 01/12/24 20:00 01/12/24 22:00 01/12/24 22:00 Temperature 100.0 F H Pulse Rate 86 77 77 Respiratory Rate 15 Blood Pressure 124/60 Pulse Oximetry 100 Oxygen Delivery Fraction of Inspired Oxygen 01/13/24 00:00 01/13/24 00:41 01/13/24 01:00 Temperature 99.8 F H 99.8 F H Pulse Rate 87 90 79 Respiratory Rate 16 17 Blood Pressure 196/82 H 149/74 H Pulse Oximetry 100 100 Oxygen Delivery Fraction of Inspired Oxygen 01/13/24 00:00 01/13/24 00:00 01/13/24 00:00 Temperature Pulse Rate 91 Respiratory Rate Blood Pressure Pulse Oximetry Oxygen Delivery Mechanical Ventilation Fraction of Inspired Oxygen 21 21 01/12/24 23:00 01/13/24 02:00 01/13/24 02:00 Temperature 99.9 F H Pulse Rate 91 86 86 Respiratory Rate 16 Blood Pressure 142/63 H Pulse Oximetry 100 100 Oxygen Delivery Mechanical Ventilation Fraction of Inspired Oxygen 21 01/13/24 02:07 01/13/24 04:56 01/13/24 04:00 Temperature 99.8 F H Pulse Rate 84 87 92 Respiratory Rate 20 Blood Pressure 170/69 H Pulse Oximetry 100 100 100 Oxygen Delivery Mechanical Ventilation Mechanical Ventilation Fraction of Inspired Oxygen 21 21 01/13/24 04:00 01/13/24 04:00 01/13/24 04:00 Temperature Pulse Rate 95 Respiratory Rate Blood Pressure Pulse Oximetry Oxygen Delivery Mechanical Ventilation Fraction of Inspired Oxygen 21 21 01/13/24 06:00 01/13/24 06:00 01/13/24 06:13 Temperature 99.3 F Pulse Rate 98 98 98 Respiratory Rate 16 Blood Pressure 197/80 H Pulse Oximetry 100 Oxygen Delivery Fraction of Inspired Oxygen 01/13/24 08:09 01/13/24 08:00 01/13/24 08:12 Temperature 100.0 F H Pulse Rate 92 86 90 Respiratory Rate 18 Blood Pressure 180/76 H Pulse Oximetry 100 99 Oxygen Delivery Mechanical Ventilation Fraction of Inspired Oxygen 21 01/13/24 08:00 01/13/24 08:00 01/13/24 08:00 Temperature Pulse Rate 91 91 Respiratory Rate 18 Blood Pressure Pulse Oximetry 100 Oxygen Delivery Mechanical Ventilation Fraction of Inspired Oxygen 21 21 01/13/24 10:00 01/13/24 10:00 01/13/24 11:09 Temperature 100.3 F H Pulse Rate 78 77 85 Respiratory Rate 20 Blood Pressure 113/61 Pulse Oximetry 100 100 Oxygen Delivery Mechanical Ventilation Fraction of Inspired Oxygen 21 01/13/24 12:00 01/13/24 12:00 01/13/24 12:00 Temperature 100.1 F H Pulse Rate 89 97 85 Respiratory Rate 18 18 Blood Pressure 165/70 H Pulse Oximetry 100 100 Oxygen Delivery Mechanical Ventilation Fraction of Inspired Oxygen 21 01/13/24 12:00 01/13/24 14:00 01/13/24 14:00 Temperature 99.8 F H Pulse Rate 93 93 Respiratory Rate 17 Blood Pressure 161/83 H Pulse Oximetry 99 100 Oxygen Delivery Mechanical Ventilation Fraction of Inspired Oxygen 21 21 01/13/24 14:00 Temperature Pulse Rate 85 Respiratory Rate Blood Pressure Pulse Oximetry Oxygen Delivery Fraction of Inspired Oxygen Intake/Output Intake/Output: Intake & Output 01/10/24 01/11/24 01/12/24 01/13/24 23:59 23:59 23:59 23:59 Intake Total 1384 1666 1766 755 Output Total 3653 7147 [id number] 850 [facility] [phone] Meds/Results Medications: Active Medications Generic Name Dose Route Start Last Admin Trade Name Freq PRN Reason Stop Dose Admin Acetaminophen 650 mg 01/10/24 08:02 01/12/24 08:20 Acetaminophen 325 Mg Tablet FEED TUBE 650 mg Q6H PRN Administration Mild Pain (1-3) or Fever Amlodipine Besylate 10 mg 01/11/24 14:05 01/13/24 08:13 Amlodipine Besylate 10 Mg Tablet FEED TUBE 10 mg DAILY CARMELA Administration Aspirin 325 mg 01/12/24 16:00 01/13/24 08:12 Aspirin 325 Mg Tablet FEED TUBE 325 mg DAILY@0800 CARMELA Administration Atorvastatin Calcium 40 mg 01/13/24 09:00 01/13/24 10:52 Atorvastatin 40 Mg Tablet FEED TUBE 40 mg DAILY CARMELA Administration Dextrose 12.5 gm 01/07/24 13:18 Dextrose 50% 25 Gm/50 Ml Syringe IV PUSH PRN PRN Hypoglycemia Protocol Epoetin Dane-epbx 10,000 units 01/12/24 09:20 01/12/24 11:55 Epoetin Dane-Epbx 10,000 Units/Ml Vial SUB-Q 10,000 units MOWEFR@09 [facility] Administration Glucagon 1 mg 01/07/24 13:18 Glucagon For Inj 1 Mg Vial IM PRN PRN Hypoglycemia Protocol Glucose 15 gm 01/07/24 13:18 Glucose Oral Gel 15 Gm Of Glucse In 37.5 Gm Tube PO PRN PRN Hypoglycemia Protocol Heparin Sodium (Porcine) 5,000 units 01/07/24 21:00 01/13/24 08:13 Heparin Sodium 5,000 Units/Ml Vial SUB-Q 5,000 units Q12HR CARMELA Administration Hydralazine HCl 10 mg 01/12/24 08:00 01/13/24 13:49 Hydralazine 10 Mg Tablet FEED TUBE 10 mg Q6H CARMELA Administration Dextrose 1,000 mls @ 100 mls/hr 01/07/24 13:18 Dextrose 5% 1,000 Ml IVPB PRN PRN Hypoglycemia Protocol Albumin Human 50 mls @ 999 mls/hr 01/07/24 17:11 01/12/24 10:30 Albutein IVPB 02/06/24 17:10 Infused Q10M PRN Infusion HYPOTENSION Levetiracetam 500 mg in 100 mls @ 400 mls/hr 01/07/24 21:00 01/12/24 20:30 Keppra Iv IVPB Infused Q24H CARMELA Infusion Cefepime HCl 1 gm in 50 mls @ 100 mls/hr 01/12/24 12:00 01/13/24 11:16 Maxipime 1 Gm/Ns 50 Ml IVPB 100 mls/hr Q12H CARMELA Administration Vancomycin HCl 1,250 mg in 250 mls @ 166.667 mls/hr 01/13/24 11:00 01/13/24 11:03 Vancomycin 1,250 Mg/Ns 250 Ml IVPB 166.67 mls/hr Q36H CARMELA Administration Insulin Aspart 4 - 8 units 01/10/24 07:55 01/13/24 11:08 Insulin Aspart (*Bkc) 100 Units/Ml SUB-Q 6 units Q4H CARMELA Administration Protocol Insulin Glargine 55 units 01/13/24 09:00 01/13/24 08:14 Insulin Glargine (*Bkc) 100 Units/Ml SUB-Q 55 units QAM CARMELA Administration Labetalol HCl 20 mg 01/08/24 14:39 01/13/24 06:13 Labetalol Hcl Inj 100 Mg/20 Ml Vial IV PUSH 20 mg Q4H PRN Administration Hypertension Metoprolol Tartrate 50 mg 01/12/24 09:00 01/13/24 08:12 Metoprolol Tartrate 50 Mg Tab FEED TUBE 50 mg Q12HR CARMELA Administration Multi-Ingred Cream/Lotion/Oil/Oint 1 applic 01/07/24 21:00 01/13/24 08:15 Mineral Oil/White Petrolatum Ointment EACH EYE 1 applic Q12HR CARMELA Administration Pantoprazole Sodium 40 mg 01/07/24 21:00 01/13/24 08:15 Pantoprazole Sodium Iv 40 Mg Vial IV PUSH 40 mg Q12HR CARMELA Administration Perflutren Lipid Microsphere 0 ml 01/12/24 16:00 Perflutren Lipid Microspheres 1.5 Ml Vial Diluted To 10 Ml Total Volume IV PUSH 01/15/24 16:01 ONCE PRN adequate visualization Protocol Radiology Results: ITS Impressions Abdomen/Pelvis CT 01/07/24 16:52 IMPRESSION: No acute abdominopelvic process. Specifically, there is no CT evidence of bowel obstruction. No definite evidence of renal injury, noting that low-grade renal injury as can be difficult to detect without contrast. Renal Ultrasound 01/08/24 10:47 IMPRESSION: 1. Normal kidney sizes. No hydronephrosis. Chest/Abdomen/Pelvis CT 01/12/24 15:08 IMPRESSION: Interval enlargement of the liver, when compared with previous examination. Flattening of the inferior vena cava suggesting severe hypovolemia. Interval development of basilar atelectasis and trace bilateral pleural effusions. No additional findings which represents a change from prior examination performed 01/07/2024. Supportive devices are in good position. Redemonstration of multiple stones within the gallbladder which is not distended. Head CT 01/12/24 15:31 IMPRESSION: 1. 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 2. Large distribution of chronic encephalomalacia in the expected distribution of left middle cerebral artery. Chest X-Ray 01/13/24 06:26 IMPRESSION: 1. Mild atelectasis at left lung base. Abdomen Ultrasound 01/13/24 09:31 IMPRESSION: 1. Cholelithiasis. 2. Normal liver Doppler. Arterial/Peripheral Duplex 01/13/24 09:31 IMPRESSION: 1. Cholelithiasis. 2. Normal liver Doppler. Labs Labs: Laboratory Results - last 24 hr 01/12/24 01/12/24 01/13/24 16:09 20:27 00:11 WBC RBC Hgb Hct MCV MCH MCHC RDW Plt Count MPV Puncture Site ABG pH ABG pCO2 ABG pO2 ABG PO2/FiO2 Ratio ABG HCO3 ABG O2 Saturation ABG O2 Content ABG Base Excess A-a Gradient Oxyhemoglobin Carboxyhemoglobin Methemoglobin Reduced Hemoglobin Total Hemoglobin O2 Delivery Device O2 Liters/Min Vent Rate Vent Mode FiO2 Tidal Volume PEEP Sodium Potassium Chloride Carbon Dioxide Anion Gap BUN Creatinine Estim Creat Clear Calc Estimated GFR Glucose POC Capillary Glucose 308 H 293 H 353 H Calcium Phosphorus Magnesium Total Bilirubin AST ALT Alkaline Phosphatase Total Protein Albumin Random Vancomycin 01/13/24 01/13/24 01/13/24 03:30 04:46 04:56 WBC 8.2 RBC 2.67 L Hgb 7.9 L Hct 25.9 L MCV 97.0 MCH 29.6 MCHC 30.5 L RDW 13.4 Plt Count 228 MPV 10.8 H Puncture Site Left brachial ABG pH 7.481 H ABG pCO2 35.7 ABG pO2 83.5 ABG PO2/FiO2 Ratio 3.98 ABG HCO3 26.0 ABG O2 Saturation 96.9 ABG O2 Content 12.1 L ABG Base Excess 2.5 A-a Gradient 23.5 Oxyhemoglobin 95.4 Carboxyhemoglobin 0.6 Methemoglobin 0.2 Reduced Hemoglobin 3.8 Total Hemoglobin 8.9 L O2 Delivery Device Ventilator O2 Liters/Min Not Reportable Vent Rate 14 Vent Mode Cmv FiO2 21 Tidal Volume 300 PEEP 5 Sodium 140 Potassium 3.8 Chloride 105 Carbon Dioxide 29 Anion Gap 6 BUN 31 H D Creatinine 2.10 H Estim Creat Clear Calc 25 Estimated GFR 24 L Glucose 303 H POC Capillary Glucose 290 H Calcium 8.7 Phosphorus 1.8 L Magnesium 2.0 Total Bilirubin 0.3 AST 37 H ALT 36 H Alkaline Phosphatase 89 Total Protein 7.0 Albumin 3.2 L Random Vancomycin 15.6 01/13/24 01/13/24 01/13/24 08:03 11:06 11:55 WBC RBC Hgb Hct MCV MCH MCHC RDW Plt Count MPV Puncture Site ABG pH ABG pCO2 ABG pO2 ABG PO2/FiO2 Ratio ABG HCO3 ABG O2 Saturation ABG O2 Content ABG Base Excess A-a Gradient Oxyhemoglobin Carboxyhemoglobin Methemoglobin Reduced Hemoglobin Total Hemoglobin O2 Delivery Device O2 Liters/Min Vent Rate Vent Mode FiO2 Tidal Volume PEEP Sodium Potassium Chloride Carbon Dioxide Anion Gap BUN Creatinine Estim Creat Clear Calc Estimated GFR Glucose POC Capillary Glucose 338 H 348 H 337 H Calcium Phosphorus Magnesium Total Bilirubin AST ALT Alkaline Phosphatase Total Protein Albumin Random Vancomycin
[2024-01-13 16:55] LABS: Glucose Point of Care 339 mg/dl (65-105)
--- NOTE | 2024-01-13 17:44 | WPDNEUROLOGY ---
Neurology EEG Report General Information Date of Study: 01/12/24 TEST Electroencephalogram DIAGNOSIS metabolic encephalopathy CONDITION OF RECORDING intensive care unit EEG NUMBER [id number] CLINICAL HISTORY history of left hemispheric stroke presented with change in mental status and has been unresponsive EEG DESCRIPTION the background activity is poorly formed low amplitude predominantly theta activity at 5-6 hertz to. There is no significant anteroposterior gradient. Muscle tension artifacts appeared prominent throughout the recording. Stage I or 2 sleep were not recorded. Hyperventilation and photic for not performed. IMPRESSION This is an abnormal EEG due to presence of moderate diffuse background slowing suggested generalized cephalopathy.
--- NOTE | 2024-01-13 18:52 | WPDNEURCNPN ---
Assessment and Plan Assessment and plan (1) Stroke: Code(s): I63.9 - Cerebral infarction, unspecified Status: Acute Assessment and Plan: With regard to the changes noted on the CT scan of the brain I agree this is most likely due to hypotension leading to low perfusion area and infarct in the white matter on both sides in addition to the pre-existing left hemispheric stroke in the middle cerebral artery distribution. There is also significant edema as a result of these. The prognosis is certainly not favorable given the amount of infarction edema. (2) History of seizure: Code(s): Z87.898 - Personal history of other specified conditions Status: Acute Assessment and Plan: Either low-dose Keppra however she has not had any observed seizure activity. EEG performed yesterday shows diffuse background slowing however no focal or paroxysmal epileptiform abnormality is seen. The recording was however compromised due to muscle tension artifacts commonly seen in ICU environment. (3) Septic shock: Code(s): A41.9 - Sepsis, unspecified organism; R65.21 - Severe sepsis with septic shock Status: Acute (4) Acute on chronic kidney failure: Code(s): N17.9 - Acute kidney failure, unspecified; N18.9 - Chronic kidney disease, unspecified Status: Acute (5) Right hemiparesis: Code(s): G81.91 - Hemiplegia, unspecified affecting right dominant side Status: Acute Plan I would suggest continue supportive care and as per family wishes I believe she is on DNR at this time. If she has any seizures I will be glad to assist in the management. let me know if I could be of any further assistance. Consult date: 01/13/24 HPI: Rafaela Hale is a 63 year old female with history of left CVA with residual right hemiparesis admitted to the hospital on 01/07/2024 with altered mental status. Showed brought in by her son she apparently was not acting right. Apparently he the patient was at her baseline when she went to bed the night before. She was found to severe metabolic acidosis with kidney failure and was started IV fluids. She was given bicarb bolus treatment for hyper candidemia. Patient was intubated with decreased mentation and vomiting. Production Support Specialist and sales agent trading stamps were consulted. Patient remains more or less unresponsive on ventilator support. The family has decided to make her DNR at this time. CT scan of the brain shows diffuse changes on both hemispheres where the previous CT scan of the brain on 01/07/2024 has shown a large infarct in the left middle cerebral artery distribution. I spoke to the nursing staff and also checked on her progression of vital signs. Appears she requires some blood pressure medications time to time to keep it did not control. Review of Systems Review of Systems: ROS unobtainable: Yes unobtainable due to medical condition and unobtainable due to mental status PMFSH Past Medical History Medical History Anemia of chronic disease Chronic kidney disease Depression with anxiety Diastolic dysfunction History of seizure Hyperlipidemia Hypertension 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 Surgical History Surgical History History of section History of hysterectomy Surgical history unknown Family History Family History Mother Heart disease Social History Social History Social History: Surrogate medical decision maker: Code status: Full code. Smoking status: Never smoker Alcohol intake: unknown Substance use: unknown Additional living arrangements comments: . Has 2 adult children. 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 Spiritual care concerns: No Meds Home Medications and Allergies Home Medications Medication Instructions Recorded Confirmed Type atorvastatin 40 mg tablet 40 mg PO HS 01/31/19 01/07/24 History metformin 1,000 mg tablet 1,000 mg PO BID 01/31/19 01/07/24 History sertraline 100 mg tablet 100 mg PO DAILY 01/31/19 01/07/24 History amlodipine 10 mg tablet 10 mg PO DAILY 01/07/24 01/07/24 History hydralazine 10 mg tablet 10 mg PO BID 01/07/24 01/07/24 History insulin aspart U-100 100 unit/mL 12 unit subcut HS 01/07/24 01/07/24 History (3 mL) subcutaneous pen (Novolog FlexPen U-100 Insulin aspart) lisinopril 40 mg tablet 40 mg PO DAILY 01/07/24 01/07/24 History metoprolol tartrate 50 mg tablet 50 mg PO Q12H 01/07/24 01/07/24 History Allergies Allergy/AdvReac Type Severity Reaction Status Date / Time No Known Allergies Allergy Unknown Verified 01/07/24 12:38 Vital Signs Vital Signs - 24 hr 01/12/24 20:00 01/12/24 20:14 01/12/24 20:00 Temperature 100 F H Pulse Rate 85 85 Respiratory Rate 16 Blood Pressure 140/63 Pulse Oximetry 100 Oxygen Delivery Fraction of Inspired Oxygen 21 01/12/24 20:05 01/12/24 20:00 01/12/24 20:00 Temperature Pulse Rate 83 86 Respiratory Rate Blood Pressure Pulse Oximetry 100 Oxygen Delivery Mechanical Ventilation Mechanical Ventilation Fraction of Inspired Oxygen 21 21 01/12/24 22:00 01/12/24 22:00 01/13/24 00:00 Temperature 100.0 F H 99.8 F H Pulse Rate 77 77 87 Respiratory Rate 15 16 Blood Pressure 124/60 196/82 H Pulse Oximetry 100 100 Oxygen Delivery Fraction of Inspired Oxygen 01/13/24 00:41 01/13/24 01:00 01/13/24 00:00 Temperature 99.8 F H Pulse Rate 90 79 Respiratory Rate 17 Blood Pressure 149/74 H Pulse Oximetry 100 Oxygen Delivery Mechanical Ventilation Fraction of Inspired Oxygen 21 01/13/24 00:00 01/13/24 00:00 01/12/24 23:00 Temperature Pulse Rate 91 91 Respiratory Rate Blood Pressure Pulse Oximetry 100 Oxygen Delivery Mechanical Ventilation Fraction of Inspired Oxygen 21 21 01/13/24 02:00 01/13/24 02:00 01/13/24 02:07 Temperature 99.9 F H Pulse Rate 86 86 84 Respiratory Rate 16 Blood Pressure 142/63 H Pulse Oximetry 100 100 Oxygen Delivery Mechanical Ventilation Fraction of Inspired Oxygen 21 01/13/24 04:56 01/13/24 04:00 01/13/24 04:00 Temperature 99.8 F H Pulse Rate 87 92 95 Respiratory Rate 20 Blood Pressure 170/69 H Pulse Oximetry 100 100 Oxygen Delivery Mechanical Ventilation Fraction of Inspired Oxygen 21 01/13/24 04:00 01/13/24 04:00 01/13/24 06:00 Temperature Pulse Rate 98 Respiratory Rate Blood Pressure Pulse Oximetry Oxygen Delivery Mechanical Ventilation Fraction of Inspired Oxygen 21 21 01/13/24 06:00 01/13/24 06:13 01/13/24 08:09 Temperature 99.3 F Pulse Rate 98 98 92 Respiratory Rate 16 Blood Pressure 197/80 H Pulse Oximetry 100 100 Oxygen Delivery Mechanical Ventilation Fraction of Inspired Oxygen 21 01/13/24 08:00 01/13/24 08:12 01/13/24 08:00 Temperature 100.0 F H Pulse Rate 86 90 91 Respiratory Rate 18 Blood Pressure 180/76 H Pulse Oximetry 99 Oxygen Delivery Fraction of Inspired Oxygen 01/13/24 08:00 01/13/24 08:00 01/13/24 10:00 Temperature Pulse Rate 91 78 Respiratory Rate 18 Blood Pressure Pulse Oximetry 100 Oxygen Delivery Mechanical Ventilation Fraction of Inspired Oxygen 21 21 01/13/24 10:00 01/13/24 11:09 01/13/24 12:00 Temperature 100.3 F H 100.1 F H Pulse Rate 77 85 89 Respiratory Rate 20 18 Blood Pressure 113/61 165/70 H Pulse Oximetry 100 100 100 Oxygen Delivery Mechanical Ventilation Fraction of Inspired Oxygen 21 01/13/24 12:00 01/13/24 12:00 01/13/24 12:00 Temperature Pulse Rate 97 85 Respiratory Rate 18 Blood Pressure Pulse Oximetry 100 Oxygen Delivery Mechanical Ventilation Fraction of Inspired Oxygen 21 21 01/13/24 14:00 01/13/24 14:00 01/13/24 14:00 Temperature 99.8 F H Pulse Rate 93 93 85 Respiratory Rate 17 Blood Pressure 161/83 H Pulse Oximetry 99 100 Oxygen Delivery Mechanical Ventilation Fraction of Inspired Oxygen 21 01/13/24 15:21 01/13/24 15:48 01/13/24 15:51 Temperature 99.4 F Pulse Rate 81 80 96 Respiratory Rate 17 18 Blood Pressure 137/65 Pulse Oximetry 100 100 Oxygen Delivery Mechanical Ventilation Fraction of Inspired Oxygen 21 01/13/24 16:21 01/13/24 16:32 01/13/24 16:00 Temperature Pulse Rate 93 84 Respiratory Rate Blood Pressure Pulse Oximetry 100 Oxygen Delivery Mechanical Ventilation Fraction of Inspired Oxygen 21 21 01/13/24 17:02 01/13/24 18:00 Temperature 99.9 F H Pulse Rate 86 86 Respiratory Rate 18 Blood Pressure 168/69 H Pulse Oximetry 100 Oxygen Delivery Fraction of Inspired Oxygen Exam Narrative: Patient opens her eyes briefly when manipulated such as checking her tone in the hands feet. This seems to drift off. Pupils were equal reacting. Increase tone and spasticity noted in the right upper limb compared to the left side. Plantars were equivocal. Doll's eyes were present. The patient is completely on the ventilator support at this time. She is off all sedatives at this time. Results Labs 01/13/24 04:46 01/13/24 04:46 Labs: Short CBC 01/13/24 Range/Units 04:46 WBC 8.2 (4.5-10.0) K/mm3 Hgb 7.9 L (12.0-15.0) g/dL Hct 25.9 L (37.0-47.0) % Plt Count 228 (150-375) k/mm3 BMP 01/13/24 04:46 Sodium 140 Potassium 3.8 Chloride 105 Carbon Dioxide 29 BUN 31 H D Creatinine 2.10 H Glucose 303 H Calcium 8.7 Liver Function 01/13/24 Range/Units 04:46 Total Bilirubin 0.3 (0.2-1.3) mg/dL AST 37 H (14-36) U/L ALT 36 H (6-35) U/L Alkaline Phosphatase 89 (38-126) U/L Albumin 3.2 L (3.5-5.1) g/dL
[2024-01-13] MEDS: levETIRAcetam 500MG/NACL 100ML 500 MG/100 ML BAG 400 MG IVPB (20:19)
[2024-01-13 21:12] LABS: Glucose Point of Care 299 mg/dl (65-105)
[2024-01-14] VITALS (28 sets, daily range): BP systolic 105–172; BP diastolic 56–79; PULSE 78–101; RESP 16–23; TEMP 37.7–38.4; O2SAT 97–100
[2024-01-14] MEDS: CEFEPIME 1 GM/NS 50 ML 1 GM/50 ML BAG IVPB ×2 (00:24→12:43)
[2024-01-14] MEDS: INSULIN ASPART (*BKC) 100 UNITS/ML SUB-Q ×7 (00:27→23:23)
[2024-01-14 00:48] LABS: Glucose Point of Care 320 mg/dl (65-105)
[2024-01-14] MEDS: hydrALAZINE 10 MG TABLET FEED TUBE ×4 (01:40→20:07)
--- NOTE | 2024-01-14 02:27 | PC.NURSE ---
Martha at [facility] notified patient still on ventilator. Martha states no one will be by tonight, but someone should be by during the day to look at information.
[2024-01-14] MEDS: LABETALOL HCL INJ 100 MG/20 ML VIAL 20 MG IV PUSH (03:07)
[2024-01-14 03:29] LABS: Glucose Point of Care 333 mg/dl (65-105)
[2024-01-14] MEDS: ACETAMINOPHEN 325 MG TABLET 650 MG FEED TUBE ×2 (05:14→22:20)
[2024-01-14 05:44] LABS: Hematocrit 23.8 % (37.0-47.0); Hemoglobin 7.2 g/dL (12.0-15.0); Mean Corpuscular HGB Conc 30.3 g/dl (32-36); Mean Corpuscular Hemoglobin 29.3 pg (26-34); Mean Corpuscular Volume 96.7 fl (80-100); Mean Platelet Volume 10.9 fl (7.4-10.4); Platelet Count Result 261 k/mm3 (150-375); Red Blood Count 2.46 M/mm3 (4.2-5.4); Red Cell Distribution Width 13.6 % (11.5-14.5); White Blood Count 6.3 K/mm3 (4.5-10.0)
[2024-01-14 05:54] LABS: Estimated CRCL calculation 21 ml/min; Estimated Glomerular Filt Rate 19
[2024-01-14 06:01] LABS: Albumin Level 2.8 g/dL (3.5-5.1); Anion Gap 5 mmol/L (4-12); Blood Urea Nitrogen 45 mg/dL (7-17); Calcium 8.1 mg/dL (8.4-10.2); Carbon Dioxide 27 mmol/L (22-30); Chloride 107 mmol/L (98-107); Estimated CRCL calculation 20 ml/min; Estimated Glomerular Filt Rate 19; Glucose 347 mg/dL (65-110); Phosphorus 2.3 mg/dL (2.5-4.5); Potassium 3.7 mmol/L (3.4-5.0); Sodium 139 mmol/L (137-145)
[2024-01-14 06:12] LABS: Base Excess ABG 0.4 mEq/l (+/-2.0); Carboxyhemoglobin 0.4 % THb (0-2.0); Fractional Inspired Oxygen 21 %; HCO3 ABG 23.6 mEq/l (22.0-26.0); Methemoglobin ABG 0.1 %THb (0-1.5); Oxygen Content ABG 14.6 %vol (16.0-22.0); Oxyhemoglobin 93.9 % THb (90.0-100.0); PCO2 ABG 33.2 mmHg (35.0-45.0); PO2 FiO2 Ratio Arterial Blood 3.29 %; Reduced Hemoglobin 5.6 %THb (0-5.0)
[2024-01-14 06:13] LABS: Device VENTILATOR; Modified Allen's Test Pass; Site Drawn LEFT BRACHIAL
[2024-01-14 06:14] LABS: Arterial Blood Gas PEEP 5 cmH2O; Arterial Blood Gas Tidal Volume 300 ml; Arterial Blood Gas Vent Mode CMV; Arterial Blood Gas Ventilator rate 14 /MIN
[2024-01-14 08:00] LABS: Glucose Point of Care 370 mg/dl (65-105)
[2024-01-14] MEDS: METOPROLOL TARTRATE 50 MG TAB FEED TUBE ×2 (08:11→20:07)
[2024-01-14] MEDS: POTASSIUM/PHOSPHORUS/SODIUM 1.5 GM PACKET 1 PACKET PO (08:11)
[2024-01-14] MEDS: ASPIRIN 325 MG TABLET FEED TUBE (08:11)
[2024-01-14] MEDS: ATORVASTATIN 40 MG TABLET FEED TUBE (08:11)
[2024-01-14] MEDS: amLODIPine BESYLATE 10 MG TABLET FEED TUBE (08:11)
[2024-01-14] MEDS: PANTOPRAZOLE SODIUM IV 40 MG VIAL IV PUSH ×2 (08:12→20:08)
[2024-01-14] MEDS: HEPARIN SODIUM 5,000 UNITS/ML VIAL 5000 UNITS SUB-Q ×2 (08:12→20:08)
[2024-01-14] MEDS: MINERAL OIL/WHITE PETROLATUM OINTMENT 1 APPLIC EACH EYE ×2 (08:12→20:11)
[2024-01-14] MEDS: INSULIN GLARGINE (*BKC) 100 UNITS/ML 65 UNITS SUB-Q (08:13)
--- NOTE | 2024-01-14 08:50 | P.PNINT_ITS ---
Progress Note: A&P Assessment and Plan (1) Stroke: Code(s): I63.9 - Cerebral infarction, unspecified Status: Acute Assessment and Plan: Patient presented with altered mental status but at that time patient was respiratory failure acute renal failure acidosis and sepsis. CT scan on presentation showed only old stroke and encephalomalacia Since then patient has not woken up despite holding sedation for multiple days and dialysis. 01/[address] was done which showed. 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 These are likely secondary to hypotension Echo did not show any thrombus or ASD Continue aspirin and statin Neurology consult EEG 01/12 - This is an abnormal EEG due to presence of moderate diffuse back ground slowing suggested generalized cephalopathy. (2) Encephalopathy: Code(s): G93.40 - Encephalopathy, unspecified Status: Acute Assessment and Plan: Patient presented with encephalopathy, altered mental status, delirium, confusion -most likely related to uremia, infection, severe acidosis and baseline flow malacia from past stroke -head CT IMPRESSION: 1. No acute intracranial process. 2. 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 3. Additional more diffuse likely age-related mild to moderate diffuse volume loss and mild scattered white matter hypoattenuation consistent with chronic small vessel ischemic disease. TSH and ammonia normal Patient now is off sedation since x 4 days. Still not responsive.. Will continue hold sedatives. EEG as above Patient was dialyzed 01/11 to help with drug removal. Minimal improved Sees encephalopathy likely secondary to strokes. See above. Neurology consulted (3) Acute respiratory failure: Code(s): J96.00 - Acute respiratory failure, unspecified whether with hypoxia or hypercapnia Status: Acute Assessment and Plan: Patient had an episode of emesis in the ER, given her altered mental status encephalopathy, risk of aspiration with impending respiratory failure patient was intubated on 01/06/2025 -currently on CMV mode of ventilation, peep of 5, 50% FiO2 -ABG reviewed and currently on vent rate to 14 and tidal volume to 300 -patient placed on PSV 01/05. Will continue as tolerated -chest x-ray reviewed -sedation is on hold. -weaning will depend on improvement in mental status. (4) Acute kidney failure: Code(s): N17.9 - Acute kidney failure, unspecified Status: Acute Assessment and Plan: On chronic kidney injury, unknown cause, CT of the abdomen and pelvis did not show any hydronephrosis or urinary obstruction -significant lactic acidosis and metabolic acidosis -patient has a history of diabetes, hypertension which is likely the cause of chronic kidney disease -patient on lisinopril hydrochlorothiazide and metformin at home -patient was given a total of 3 L IV fluid bolus, 1 L in the ER and 2 L in the ICU -sodium bicarb IV pushes x4 in the ICU -patient was started on sodium bicarb infusion after discussing with Nephrology -patient was started on hemodialysis and was dialyzed x 3 days -urine output has improved - 01/11 patient was dialyzed again 1 L fluid was removed -continue to monitor urine output, electrolytes and renal function (5) Metabolic acidosis: Code(s): E87.20 - Acidosis, unspecified Status: Acute Assessment and Plan: Patient presented with significant metabolic acidosis and lactic acidosis. This could be combination of septic shock, acute kidney injury but also a possibility of metformin toxicity Patient received hemodialysis and IV bicarb. Acidosis has resolved. Further dialysis per Nephrology Monitor (6) Septic shock: Code(s): A41.9 - Sepsis, unspecified organism; R65.21 - Severe sepsis with septic shock Status: Acute Assessment and Plan: Patient hypotensive on presentation Patient was given IV fluid bolus followed by maintenance IV fluids -lactic acid has improved -Levophed weaned off -off IV fluids -source appears to be UTI. Urine and blood cultures are negative till now -continue Rocephin -discontinue stress dose steroids - 01/10 continues to have fever although other markers of infection are improved as normal WBC. Repeat blood cultures sent and pending Clark catheter change 01/11 Minimal respiratory secretions, sputum cultures growing yeast which is likely a colonization Change Rocephin to cefepime and vancomycin Obtain CT scan 01/12 continues to have low-grade fever but overall fever curve is down.. White count is normal. CT scan of chest and pelvis does not show any area suggestive of infection. Clark catheter was changed. Procalcitonin level is also on the lower side. Continue cefepime and vancomycin at this time. Cultures are pending. (7) Diastolic dysfunction: Code(s): I51.89 - Other ill-defined heart diseases Status: Acute Assessment and Plan: Echo 01/11 Summary 1. Left ventricular systolic function is normal, estimated at 60-65%. 2. There is moderately increased left ventricular wall thickness. 3. Intact interatrial septum visualized by agitated saline imaging. 4. There is mild aortic valve calcification. 5. There is mild aortic valve stenosis with a peak velocity of 190 cm/s,mean gradient of 8 mmHg, and aortic valve area of 1.8 cm2. 6. There is mild tricuspid valve regurgitation. 7. Mild pulmonary hypertension, estimated pulmonary arterial systolicpressure is 46 mmHg. (8) Insulin dependent diabetes mellitus: Status: Chronic Assessment and Plan: Continue sliding scale insulin Accu-Cheks Increased Lantus does (9) Right hemiparesis: Code(s): G81.91 - Hemiplegia, unspecified affecting right dominant side Status: Acute Assessment and Plan: History of left-sided cerebral hemisphere and CVA, residual mild aphasia and right-sided weakness (10) Seizures: Code(s): R56.9 - Unspecified convulsions Status: Acute Assessment and Plan: Patient has a history of seizures, on p.o. Keppra 500 mg p.o. q.12 hours Continue Keppra IV 500 mg IV q.24 (discuss with pharmacist) EEG negative for any seizure-like activity (11) Hypertension: Code(s): I10 - Essential (primary) hypertension Status: Acute Assessment and Plan: Continue metoprolol, hydralazine and amlodipine Plan DVT prophylaxis: Heparin SQ Stress ulcer prophylaxis: Protonix Nutrition: Continue tube feeds Code Status: DNR Critical Care Time Spent: 30 minutes Due to a high probability of clinically significant, life threatening deterioration, the patient required my highest level of preparedness to intervene emergently and I personally spent this critical care time directly and personally managing the patient. This critical care time included obtaining a history; examining the patient; pulse oximetry; ordering and review of studies; arranging urgent treatment with development of a management plan; evaluation of patient's response to treatment; frequent reassessment; and discussions with other providers. It was exclusive of separately billable procedures and treating other patients and teaching time. Please see Assessment and Plan section and the rest of the note for further information on patient assessment and treatment This dictation may have been done utilizing a voice recognition system. Attempts have been made to correct errors. However, there may be uncorrected grammatical, spelling, and recognitions errors present. Subjective Date/time seen: 10/13/24 Overnight events reviewed. Low-grade fever Continues to be on mechanical ventilation 21% FiO2 Continues to be unresponsive. High urine output Tolerating tube feeds Patient had bowel movements Other Vitals acceptable Review of Systems Review of Systems: ROS unobtainable: Yes unobtainable due to endotracheal tube, unobtainable due to medical condition and unobtainable due to mental status Exam Narrative: General: Intubated and sedated HEENT:? Pupils are equal, sluggishly reactive to light, sclera is clear, ETT in place Neck:? Supple, right IJ dialysis catheter in place Respiratory:? Coarse breath sounds bilaterally, decreased at bases no wheezing, adequate air entry Cardiac:? S1-S2 normal, regular rate and rhythm, Abdomen:? Soft, nontender, nondistended, hypoactive bowel sounds, old midline surgical scar noted Extremities:? Dry skin, decreased pedal pulses, no edema Neuro:? Patient is intubated, off sedation, PERRL, minimal grimace response to sternal painful stimuli. Opens her eyes on stimulation but does not regard examiner or is responsive. No withdrawal to pain in the extremities. Skin:? Dry and flaky skin on lower extremities, skin is warm Psych:? Unable to assess at this time Objective Data Vital Signs Vital Signs: Vital Signs - 24 hr 01/13/24 10:00 01/13/24 10:00 01/13/24 11:09 Temperature 37.9 C H Pulse Rate 78 77 85 Respiratory Rate 20 Blood Pressure 113/61 Pulse Oximetry 100 100 Oxygen Delivery Mechanical Ventilation Fraction of Inspired Oxygen 21 01/13/24 12:00 01/13/24 12:00 01/13/24 12:00 Temperature 37.8 C H Pulse Rate 89 97 85 Respiratory Rate 18 18 Blood Pressure 165/70 H Pulse Oximetry 100 100 Oxygen Delivery Mechanical Ventilation Fraction of Inspired Oxygen 21 01/13/24 12:00 01/13/24 14:00 01/13/24 14:00 Temperature 37.7 C H Pulse Rate 93 93 Respiratory Rate 17 Blood Pressure 161/83 H Pulse Oximetry 99 100 Oxygen Delivery Mechanical Ventilation Fraction of Inspired Oxygen 21 21 01/13/24 14:00 01/13/24 15:21 01/13/24 15:48 Temperature Pulse Rate 85 81 80 Respiratory Rate 17 Blood Pressure Pulse Oximetry 100 Oxygen Delivery Mechanical Ventilation Fraction of Inspired Oxygen 21 01/13/24 15:51 01/13/24 16:21 01/13/24 16:32 Temperature 37.4 C Pulse Rate 96 93 84 Respiratory Rate 18 Blood Pressure 137/65 Pulse Oximetry 100 100 Oxygen Delivery Mechanical Ventilation Fraction of Inspired Oxygen 21 01/13/24 16:00 01/13/24 17:02 01/13/24 18:00 Temperature 37.7 C H Pulse Rate 86 86 Respiratory Rate 18 Blood Pressure 168/69 H Pulse Oximetry 100 Oxygen Delivery Fraction of Inspired Oxygen 21 01/13/24 20:18 01/13/24 20:49 01/13/24 20:00 Temperature Pulse Rate 100 93 97 Respiratory Rate Blood Pressure Pulse Oximetry 100 Oxygen Delivery Mechanical Ventilation Fraction of Inspired Oxygen 21 01/13/24 20:00 01/13/24 22:41 01/13/24 22:44 Temperature 37.6 C H Pulse Rate 94 93 Respiratory Rate 20 Blood Pressure 188/76 H Pulse Oximetry 100 Oxygen Delivery Mechanical Ventilation Fraction of Inspired Oxygen 01/13/24 20:00 01/13/24 22:00 01/13/24 23:27 Temperature Pulse Rate 79 87 Respiratory Rate Blood Pressure Pulse Oximetry 100 Oxygen Delivery Mechanical Ventilation Fraction of Inspired Oxygen 21 21 01/13/24 20:00 01/13/24 22:00 01/14/24 00:00 Temperature 37.8 C H 37.7 C H Pulse Rate 98 79 87 Respiratory Rate 17 18 Blood Pressure 185/78 H 156/64 H Pulse Oximetry 100 99 Oxygen Delivery Fraction of Inspired Oxygen 01/14/24 00:00 01/14/24 00:00 01/14/24 00:00 Temperature 37.7 C H Pulse Rate 87 Respiratory Rate 18 Blood Pressure 140/71 Pulse Oximetry 99 Oxygen Delivery Mechanical Ventilation Fraction of Inspired Oxygen 21 01/14/24 02:33 01/14/24 02:00 01/14/24 03:07 Temperature 38.1 C H Pulse Rate 98 95 98 Respiratory Rate 20 Blood Pressure 156/63 H Pulse Oximetry 100 99 Oxygen Delivery Mechanical Ventilation Fraction of Inspired Oxygen 21 01/14/24 02:00 01/14/24 04:00 01/14/24 04:00 Temperature Pulse Rate 95 93 94 Respiratory Rate 22 H Blood Pressure Pulse Oximetry 99 Oxygen Delivery Mechanical Ventilation Fraction of Inspired Oxygen 21 01/14/24 04:00 01/14/24 04:00 01/14/24 05:14 Temperature 38.3 C H 38.3 C H Pulse Rate 93 Respiratory Rate 22 H Blood Pressure 142/70 H Pulse Oximetry 99 Oxygen Delivery Fraction of Inspired Oxygen 21 01/14/24 05:46 01/14/24 06:00 01/14/24 06:00 Temperature Pulse Rate 88 89 89 Respiratory Rate 20 Blood Pressure 147/75 H Pulse Oximetry 99 97 Oxygen Delivery Mechanical Ventilation Fraction of Inspired Oxygen 21 01/14/24 06:14 01/14/24 08:00 01/14/24 08:08 Temperature 38.4 C H 38.1 C H Pulse Rate 101 H 95 Respiratory Rate 16 Blood Pressure 154/60 H Pulse Oximetry 100 100 Oxygen Delivery Mechanical Ventilation Fraction of Inspired Oxygen 21 01/14/24 08:11 Temperature Pulse Rate 98 Respiratory Rate Blood Pressure Pulse Oximetry Oxygen Delivery Fraction of Inspired Oxygen Intake/Output Intake/Output: Intake & Output 01/11/24 01/12/24 01/13/24 01/14/24 23:59 23:59 23:59 23:59 Intake Total 1666 1766 2510 638 Output Total 1488 2996 4700 800 Balance -834 -960 -2190 -162 Meds/Results Medications: Active Medications Generic Name Dose Route Start Last Admin Trade Name Freq PRN Reason Stop Dose Admin Acetaminophen 650 mg 01/10/24 08:02 01/14/24 05:14 Acetaminophen 325 Mg Tablet FEED TUBE 650 mg Q6H PRN Administration Mild Pain (1-3) or Fever Amlodipine Besylate 10 mg 01/11/24 14:05 01/14/24 08:11 Amlodipine Besylate 10 Mg Tablet FEED TUBE 10 mg DAILY CARMELA Administration Aspirin 325 mg 01/12/24 16:00 01/14/24 08:11 Aspirin 325 Mg Tablet FEED TUBE 325 mg DAILY@0800 CARMELA Administration Atorvastatin Calcium 40 mg 01/13/24 09:00 01/14/24 08:11 Atorvastatin 40 Mg Tablet FEED TUBE 40 mg DAILY CARMELA Administration Dextrose 12.5 gm 01/07/24 13:18 Dextrose 50% 25 Gm/50 Ml Syringe IV PUSH PRN PRN Hypoglycemia Protocol Epoetin Dane-epbx 10,000 units 01/12/24 09:20 01/12/24 11:55 Epoetin Dane-Epbx 10,000 Units/Ml Vial SUB-Q 10,000 units MOWEFR@09 CARMELA Administration Glucagon 1 mg 01/07/24 13:18 Glucagon For Inj 1 Mg Vial IM PRN PRN Hypoglycemia Protocol Glucose 15 gm 01/07/24 13:18 Glucose Oral Gel 15 Gm Of Glucse In 37.5 Gm Tube PO PRN PRN Hypoglycemia Protocol Heparin Sodium (Porcine) 5,000 units 01/07/24 21:00 01/14/24 08:12 Heparin Sodium 5,000 Units/Ml Vial SUB-Q 5,000 units Q12HR CARMELA Administration Hydralazine HCl 10 mg 01/12/24 08:00 01/14/24 08:11 Hydralazine 10 Mg Tablet FEED TUBE 10 mg Q6H CARMELA Administration Dextrose 1,000 mls @ 100 mls/hr 01/07/24 13:18 Dextrose 5% 1,000 Ml IVPB PRN PRN Hypoglycemia Protocol Albumin Human 50 mls @ 999 mls/hr 01/07/24 17:11 01/12/24 10:30 Albutein IVPB 02/06/24 17:10 Infused Q10M PRN Infusion HYPOTENSION Levetiracetam 500 mg in 100 mls @ 400 mls/hr 01/07/24 21:00 01/13/24 20:34 Keppra Iv IVPB Infused Q24H CARMELA Infusion Cefepime HCl 1 gm in 50 mls @ 100 mls/hr 01/12/24 12:00 01/14/24 00:54 Maxipime 1 Gm/Ns 50 Ml IVPB Infused Q12H CARMELA Infusion Vancomycin HCl 1,250 mg in 250 mls @ 166.667 mls/hr 01/13/24 11:00 01/13/24 11:03 Vancomycin 1,250 Mg/Ns 250 Ml IVPB 166.67 mls/hr Q36H CARMELA Administration Insulin Aspart 4 - 8 units 01/10/24 07:55 01/14/24 08:15 Insulin Aspart (*Bkc) 100 Units/Ml SUB-Q 8 units Q4H CARMELA Administration Protocol Insulin Glargine 65 units 01/14/24 09:00 01/14/24 08:13 Insulin Glargine (*Bkc) 100 Units/Ml SUB-Q 65 units QAM CARMELA Administration Labetalol HCl 20 mg 01/08/24 14:39 01/14/24 03:07 Labetalol Hcl Inj 100 Mg/20 Ml Vial IV PUSH 20 mg Q4H PRN Administration Hypertension Metoprolol Tartrate 50 mg 01/12/24 09:00 01/14/24 08:11 Metoprolol Tartrate 50 Mg Tab FEED TUBE 50 mg Q12HR CARMELA Administration Multi-Ingred Cream/Lotion/Oil/Oint 1 applic 01/07/24 21:00 01/14/24 08:12 Mineral Oil/White Petrolatum Ointment EACH EYE 1 applic Q12HR CARMELA Administration Pantoprazole Sodium 40 mg 01/07/24 21:00 01/14/24 08:12 Pantoprazole Sodium Iv 40 Mg Vial IV PUSH 40 mg Q12HR CARMELA Administration Perflutren Lipid Microsphere 0 ml 01/12/24 16:00 Perflutren Lipid Microspheres 1.5 Ml Vial Diluted To 10 Ml Total Volume IV PUSH 01/15/24 16:01 ONCE PRN adequate visualization Protocol Radiology Results: ITS Impressions Abdomen/Pelvis CT 01/07/24 16:52 IMPRESSION: No acute abdominopelvic process. Specifically, there is no CT evidence of bowel obstruction. No definite evidence of renal injury, noting that low-grade renal injury as can be difficult to detect without contrast. Renal Ultrasound 01/08/24 10:47 IMPRESSION: 1. Normal kidney sizes. No hydronephrosis. Chest/Abdomen/Pelvis CT 01/12/24 15:08 IMPRESSION: Interval enlargement of the liver, when compared with previous examination. Flattening of the inferior vena cava suggesting severe hypovolemia. Interval development of basilar atelectasis and trace bilateral pleural effusions. No additional findings which represents a change from prior examination performed 01/07/2024. Supportive devices are in good position. Redemonstration of multiple stones within the gallbladder which is not distended. Head CT 01/12/24 15:31 IMPRESSION: 1. 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 2. Large distribution of chronic encephalomalacia in the expected distribution of left middle cerebral artery. Abdomen Ultrasound 01/13/24 09:31 IMPRESSION: 1. Cholelithiasis. 2. Normal liver Doppler. Arterial/Peripheral Duplex 01/13/24 09:31 IMPRESSION: 1. Cholelithiasis. 2. Normal liver Doppler. Chest X-Ray 01/14/24 08:37 IMPRESSION: 1. Mild atelectasis at left lung base. Labs Labs: Laboratory Results - last 24 hr 01/13/24 01/13/24 01/13/24 11:06 11:55 16:21 WBC RBC Hgb Hct MCV MCH MCHC RDW Plt Count MPV Puncture Site ABG pH ABG pCO2 ABG pO2 ABG PO2/FiO2 Ratio ABG HCO3 ABG O2 Saturation ABG O2 Content ABG Base Excess A-a Gradient Oxyhemoglobin Carboxyhemoglobin Methemoglobin Reduced Hemoglobin Total Hemoglobin O2 Delivery Device O2 Liters/Min Minute Volume Vent Rate Vent Mode FiO2 Tidal Volume PEEP Peak Inspir Pressure Pressure Support Sodium Potassium Chloride Carbon Dioxide Anion Gap BUN Creatinine Estim Creat Clear Calc Estimated GFR Glucose POC Capillary Glucose 348 H 337 H 339 H Calcium Phosphorus Albumin 01/13/24 01/14/24 01/14/24 20:13 00:26 03:11 WBC RBC Hgb Hct MCV MCH MCHC RDW Plt Count MPV Puncture Site ABG pH ABG pCO2 ABG pO2 ABG PO2/FiO2 Ratio ABG HCO3 ABG O2 Saturation ABG O2 Content ABG Base Excess A-a Gradient Oxyhemoglobin Carboxyhemoglobin Methemoglobin Reduced Hemoglobin Total Hemoglobin O2 Delivery Device O2 Liters/Min Minute Volume Vent Rate Vent Mode FiO2 Tidal Volume PEEP Peak Inspir Pressure Pressure Support Sodium Potassium Chloride Carbon Dioxide Anion Gap BUN Creatinine Estim Creat Clear Calc Estimated GFR Glucose POC Capillary Glucose 299 H 320 H 333 H Calcium Phosphorus Albumin 01/14/24 01/14/24 01/14/24 05:36 05:36 05:36 WBC 6.3 RBC 2.46 L Hgb 7.2 L Hct 23.8 L MCV 96.7 MCH 29.3 MCHC 30.3 L RDW 13.6 Plt Count 261 MPV 10.9 H Puncture Site ABG pH ABG pCO2 ABG pO2 ABG PO2/FiO2 Ratio ABG HCO3 ABG O2 Saturation ABG O2 Content ABG Base Excess A-a Gradient Oxyhemoglobin Carboxyhemoglobin Methemoglobin Reduced Hemoglobin Total Hemoglobin O2 Delivery Device O2 Liters/Min Minute Volume Vent Rate Vent Mode FiO2 Tidal Volume PEEP Peak Inspir Pressure Pressure Support Sodium 139 Potassium 3.7 Chloride 107 Carbon Dioxide 27 Anion Gap 5 BUN 45 H D Creatinine 2.60 H 2.50 H Estim Creat Clear Calc 20 21 Estimated GFR 19 L Glucose POC Capillary Glucose Calcium Phosphorus Albumin 01/14/24 01/14/24 01/14/24 05:36 05:52 07:58 WBC RBC Hgb Hct MCV MCH MCHC RDW Plt Count MPV Puncture Site Left brachial ABG pH 7.470 H ABG pCO2 33.2 L ABG pO2 69.0 L ABG PO2/FiO2 Ratio 3.29 ABG HCO3 23.6 ABG O2 Saturation 95.0 ABG O2 Content 14.6 L ABG Base Excess 0.4 A-a Gradient 41.0 Oxyhemoglobin 93.9 Carboxyhemoglobin 0.4 Methemoglobin 0.1 Reduced Hemoglobin 5.6 H Total Hemoglobin 11.0 L O2 Delivery Device Ventilator O2 Liters/Min Not Reportable Minute Volume Not Reportable Vent Rate 14 Vent Mode Cmv FiO2 21 Tidal Volume 300 PEEP 5 Peak Inspir Pressure Not Reportable Pressure Support Not Reportable Sodium Potassium Chloride Carbon Dioxide Anion Gap BUN Creatinine Estim Creat Clear Calc Estimated GFR 19 L Glucose 347 H POC Capillary Glucose 370 H Calcium 8.1 L Phosphorus 2.3 L Albumin 2.8 L Quality VTE Prophylaxis VTE prophylaxis: mechanical ordered and pharmacologic ordered
--- NOTE | 2024-01-14 08:54 | P.PNNP_ITS ---
Progress Note: A&P Assessment and Plan (1) Acute kidney failure: Code(s): N17.9 - Acute kidney failure, unspecified Status: Acute Assessment and Plan: * baseline creatinine not known * reported has some underlying renal insufficiency/CKD per family * evaluation to date noted: * CT of abd/pelvis and renal ultrasound negative for obstruction * urine eosinophils negative * CPK normal * urine electrolytes non-prerenal * UA suggestive of infection * proteinuria noted complicated by severe acidosis and hyperkalemia on admission * etiology likely multifactorial: * infection/sepsis * hemodynamic instability/shock * SRINIVAS-I + HCTZ use prior to admission * possible prerenal factors * metformin use prior to admission * continued BP medications prior to admission * She was given IV fluids, and then started on dialysis because of mental status. * Mental status did not improve with dialysis. * Labs look okay. * CT showd multiple strokes. * still making urine. * Continue to watch off dialysis for now. * Discussed with Dr Mallory. (2) Septic shock: Code(s): A41.9 - Sepsis, unspecified organism; R65.21 - Severe sepsis with septic shock Status: Acute Assessment and Plan: * initially normotensive on presentation * however, worsening hypotension in the ER * s/p aggressive IVF resuscitation * presumsed source = aspiration pneumonia + UTI * Blood and urine cultures negative. * Sputum culture showed yeast. * The patient is on vancomycin and cefepime. * off pressors. (3) Acute respiratory failure: Code(s): J96.00 - Acute respiratory failure, unspecified whether with hypoxia or hypercapnia Status: Acute Assessment and Plan: * due to AMS + emesis and concerns for aspiration and inability to protect airway * intubated and on mechanical ventilation * continue ventilator support - off sedation * Minute volume only around 9. FiO2 is 21%. (4) Acidosis: Code(s): E87.20 - Acidosis, unspecified Status: Acute Assessment and Plan: * resolved (5) Hyperkalemia: Code(s): E87.5 - Hyperkalemia Status: Acute Assessment and Plan: * resolved * potassium good today (6) Encephalopathy: Code(s): G93.40 - Encephalopathy, unspecified Status: Acute Assessment and Plan: * as noted by presentation of altered mental status, delirium, and confusion * Ct shows several strokes. * TSH and ammonia levels noted * HD didnt help the mental status * still unresponsive. 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 On no sedatives Exam Narrative: General: somewhat ill appearing female intubated and on mechanical ventilation Heart: normal S1 and S2; no rub or gallop Lungs: Coarse bilateral breath sounds. No wheezes. Abdomen: soft, nontender, nondistended, positive bowel sounds Extremities:no edema Skin: no rash or sq nodules Objective Data Vital Signs Vital Signs: Vital Signs - 24 hr 01/13/24 10:00 01/13/24 10:00 01/13/24 11:09 Temperature 100.3 F H Pulse Rate 78 77 85 Respiratory Rate 20 Blood Pressure 113/61 Pulse Oximetry 100 100 Oxygen Delivery Mechanical Ventilation Fraction of Inspired Oxygen 21 01/13/24 12:00 01/13/24 12:00 01/13/24 12:00 Temperature 100.1 F H Pulse Rate 89 97 85 Respiratory Rate 18 18 Blood Pressure 165/70 H Pulse Oximetry 100 100 Oxygen Delivery Mechanical Ventilation Fraction of Inspired Oxygen 21 01/13/24 12:00 01/13/24 14:00 01/13/24 14:00 Temperature 99.8 F H Pulse Rate 93 93 Respiratory Rate 17 Blood Pressure 161/83 H Pulse Oximetry 99 100 Oxygen Delivery Mechanical Ventilation Fraction of Inspired Oxygen 21 21 01/13/24 14:00 01/13/24 15:21 01/13/24 15:48 Temperature Pulse Rate 85 81 80 Respiratory Rate 17 Blood Pressure Pulse Oximetry 100 Oxygen Delivery Mechanical Ventilation Fraction of Inspired Oxygen 21 01/13/24 15:51 01/13/24 16:21 01/13/24 16:32 Temperature 99.4 F Pulse Rate 96 93 84 Respiratory Rate 18 Blood Pressure 137/65 Pulse Oximetry 100 100 Oxygen Delivery Mechanical Ventilation Fraction of Inspired Oxygen 21 01/13/24 16:00 01/13/24 17:02 01/13/24 18:00 Temperature 99.9 F H Pulse Rate 86 86 Respiratory Rate 18 Blood Pressure 168/69 H Pulse Oximetry 100 Oxygen Delivery Fraction of Inspired Oxygen 21 01/13/24 20:18 01/13/24 20:49 01/13/24 20:00 Temperature Pulse Rate 100 93 97 Respiratory Rate Blood Pressure Pulse Oximetry 100 Oxygen Delivery Mechanical Ventilation Fraction of Inspired Oxygen 21 01/13/24 20:00 01/13/24 22:41 01/13/24 22:44 Temperature 99.7 F H Pulse Rate 94 93 Respiratory Rate 20 Blood Pressure 188/76 H Pulse Oximetry 100 Oxygen Delivery Mechanical Ventilation Fraction of Inspired Oxygen 01/13/24 20:00 01/13/24 22:00 01/13/24 23:27 Temperature Pulse Rate 79 87 Respiratory Rate Blood Pressure Pulse Oximetry 100 Oxygen Delivery Mechanical Ventilation Fraction of Inspired Oxygen 21 21 01/13/24 20:00 01/13/24 22:00 01/14/24 00:00 Temperature 100.0 F H 99.8 F H Pulse Rate 98 79 87 Respiratory Rate 17 18 Blood Pressure 185/78 H 156/64 H Pulse Oximetry 100 99 Oxygen Delivery Fraction of Inspired Oxygen 01/14/24 00:00 01/14/24 00:00 01/14/24 00:00 Temperature 100 F H Pulse Rate 87 Respiratory Rate 18 Blood Pressure 140/71 Pulse Oximetry 99 Oxygen Delivery Mechanical Ventilation Fraction of Inspired Oxygen 21 01/14/24 02:33 01/14/24 02:00 01/14/24 03:07 Temperature 100.5 F H Pulse Rate 98 95 98 Respiratory Rate 20 Blood Pressure 156/63 H Pulse Oximetry 100 99 Oxygen Delivery Mechanical Ventilation Fraction of Inspired Oxygen 21 01/14/24 02:00 01/14/24 04:00 01/14/24 04:00 Temperature Pulse Rate 95 93 94 Respiratory Rate 22 H Blood Pressure Pulse Oximetry 99 Oxygen Delivery Mechanical Ventilation Fraction of Inspired Oxygen 21 01/14/24 04:00 01/14/24 04:00 01/14/24 05:14 Temperature 101 F H 101 F H Pulse Rate 93 Respiratory Rate 22 H Blood Pressure 142/70 H Pulse Oximetry 99 Oxygen Delivery Fraction of Inspired Oxygen 21 01/14/24 05:46 01/14/24 06:00 01/14/24 06:00 Temperature Pulse Rate 88 89 89 Respiratory Rate 20 Blood Pressure 147/75 H Pulse Oximetry 99 97 Oxygen Delivery Mechanical Ventilation Fraction of Inspired Oxygen 21 01/14/24 06:14 01/14/24 08:00 01/14/24 08:08 Temperature 101.1 F H 100.6 F H Pulse Rate 101 H 95 Respiratory Rate 16 Blood Pressure 154/60 H Pulse Oximetry 100 100 Oxygen Delivery Mechanical Ventilation Fraction of Inspired Oxygen 01/14/24 08:11 Temperature Pulse Rate 98 Respiratory Rate Blood Pressure Pulse Oximetry Oxygen Delivery Fraction of Inspired Oxygen Intake/Output Intake/Output: Intake & Output 01/11/24 01/12/24 01/13/24 01/14/24 23:59 23:59 23:59 23:59 Intake Total 1666 1766 2510 638 Output Total 3860 8266 0960 800 [facility] [phone] Meds/Results Medications: Active Medications Generic Name Dose Route Start Last Admin Trade Name Freq PRN Reason Stop Dose Admin Acetaminophen 650 mg 01/10/24 08:02 01/14/24 05:14 Acetaminophen 325 Mg Tablet FEED TUBE 650 mg Q6H PRN Administration Mild Pain (1-3) or Fever Amlodipine Besylate 10 mg 01/11/24 14:05 01/14/24 08:11 Amlodipine Besylate 10 Mg Tablet FEED TUBE 10 mg DAILY CARMELA Administration Aspirin 325 mg 01/12/24 16:00 01/14/24 08:11 Aspirin 325 Mg Tablet FEED TUBE 325 mg DAILY@0800 CARMELA Administration Atorvastatin Calcium 40 mg 01/13/24 09:00 01/14/24 08:11 Atorvastatin 40 Mg Tablet FEED TUBE 40 mg DAILY CARMELA Administration Dextrose 12.5 gm 01/07/24 13:18 Dextrose 50% 25 Gm/50 Ml Syringe IV PUSH PRN PRN Hypoglycemia Protocol Epoetin Dane-epbx 10,000 units 01/12/24 09:20 01/12/24 11:55 Epoetin Dane-Epbx 10,000 Units/Ml Vial SUB-Q 10,000 units MOWEFR@09 CARMELA Administration Glucagon 1 mg 01/07/24 13:18 Glucagon For Inj 1 Mg Vial IM PRN PRN Hypoglycemia Protocol Glucose 15 gm 01/07/24 13:18 Glucose Oral Gel 15 Gm Of Glucse In 37.5 Gm Tube PO PRN PRN Hypoglycemia Protocol Heparin Sodium (Porcine) 5,000 units 01/07/24 21:00 01/14/24 08:12 Heparin Sodium 5,000 Units/Ml Vial SUB-Q 5,000 units Q12HR CARMELA Administration Hydralazine HCl 10 mg 01/12/24 08:00 01/14/24 08:11 Hydralazine 10 Mg Tablet FEED TUBE 10 mg Q6H CARMELA Administration Dextrose 1,000 mls @ 100 mls/hr 01/07/24 13:18 Dextrose 5% 1,000 Ml IVPB PRN PRN Hypoglycemia Protocol Albumin Human 50 mls @ 999 mls/hr 01/07/24 17:11 01/12/24 10:30 Albutein IVPB 02/06/24 17:10 Infused Q10M PRN Infusion HYPOTENSION Levetiracetam 500 mg in 100 mls @ 400 mls/hr 01/07/24 21:00 01/13/24 20:34 Keppra Iv IVPB Infused Q24H CARMELA Infusion Cefepime HCl 1 gm in 50 mls @ 100 mls/hr 01/12/24 12:00 01/14/24 00:54 Maxipime 1 Gm/Ns 50 Ml IVPB Infused Q12H CARMELA Infusion Vancomycin HCl 1,250 mg in 250 mls @ 166.667 mls/hr 01/13/24 11:00 01/13/24 11:03 Vancomycin 1,250 Mg/Ns 250 Ml IVPB 166.67 mls/hr Q36H CARMELA Administration Insulin Aspart 4 - 8 units 01/10/24 07:55 01/14/24 08:15 Insulin Aspart (*Bkc) 100 Units/Ml SUB-Q 8 units Q4H CARMELA Administration Protocol Insulin Glargine 65 units 01/14/24 09:00 01/14/24 08:13 Insulin Glargine (*Bkc) 100 Units/Ml SUB-Q 65 units QAM CARMELA Administration Labetalol HCl 20 mg 01/08/24 14:39 01/14/24 03:07 Labetalol Hcl Inj 100 Mg/20 Ml Vial IV PUSH 20 mg Q4H PRN Administration Hypertension Metoprolol Tartrate 50 mg 01/12/24 09:00 01/14/24 08:11 Metoprolol Tartrate 50 Mg Tab FEED TUBE 50 mg Q12HR CARMELA Administration Multi-Ingred Cream/Lotion/Oil/Oint 1 applic 01/07/24 21:00 01/14/24 08:12 Mineral Oil/White Petrolatum Ointment EACH EYE 1 applic Q12HR CARMELA Administration Pantoprazole Sodium 40 mg 01/07/24 21:00 01/14/24 08:12 Pantoprazole Sodium Iv 40 Mg Vial IV PUSH 40 mg Q12HR CARMELA Administration Perflutren Lipid Microsphere 0 ml 01/12/24 16:00 Perflutren Lipid Microspheres 1.5 Ml Vial Diluted To 10 Ml Total Volume IV PUSH 01/15/24 16:01 ONCE PRN adequate visualization Protocol Radiology Results: ITS Impressions Abdomen/Pelvis CT 01/07/24 16:52 IMPRESSION: No acute abdominopelvic process. Specifically, there is no CT evidence of bowel obstruction. No definite evidence of renal injury, noting that low-grade renal injury as can be difficult to detect without contrast. Renal Ultrasound 01/08/24 10:47 IMPRESSION: 1. Normal kidney sizes. No hydronephrosis. Chest/Abdomen/Pelvis CT 01/12/24 15:08 IMPRESSION: Interval enlargement of the liver, when compared with previous examination. Flattening of the inferior vena cava suggesting severe hypovolemia. Interval development of basilar atelectasis and trace bilateral pleural effusions. No additional findings which represents a change from prior examination perform ed 01/07/2024. Supportive devices are in good position. Redemonstration of multiple stones within the gallbladder which is not distended. Head CT 01/12/24 15:31 IMPRESSION: 1. 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 2. Large distribution of chronic encephalomalacia in the expected distribution of left middle cerebral artery. Abdomen Ultrasound 01/13/24 09:31 IMPRESSION: 1. Cholelithiasis. 2. Normal liver Doppler. Arterial/Peripheral Duplex 01/13/24 09:31 IMPRESSION: 1. Cholelithiasis. 2. Normal liver Doppler. Chest X-Ray 01/14/24 08:37 IMPRESSION: 1. Mild atelectasis at left lung base. Labs Labs: Laboratory Results - last 24 hr 01/13/24 01/13/24 01/13/24 11:06 11:55 16:21 WBC RBC Hgb Hct MCV MCH MCHC RDW Plt Count MPV Puncture Site ABG pH ABG pCO2 ABG pO2 ABG PO2/FiO2 Ratio ABG HCO3 ABG O2 Saturation ABG O2 Content ABG Base Excess A-a Gradient Oxyhemoglobin Carboxyhemoglobin Methemoglobin Reduced Hemoglobin Total Hemoglobin O2 Delivery Device O2 Liters/Min Minute Volume Vent Rate Vent Mode FiO2 Tidal Volume PEEP Peak Inspir Pressure Pressure Support Sodium Potassium Chloride Carbon Dioxide Anion Gap BUN Creatinine Estim Creat Clear Calc Estimated GFR Glucose POC Capillary Glucose 348 H 337 H 339 H Calcium Phosphorus Albumin 01/13/24 01/14/24 01/14/24 20:13 00:26 03:11 WBC RBC Hgb Hct MCV MCH MCHC RDW Plt Count MPV Puncture Site ABG pH ABG pCO2 ABG pO2 ABG PO2/FiO2 Ratio ABG HCO3 ABG O2 Saturation ABG O2 Content ABG Base Excess A-a Gradient Oxyhemoglobin Carboxyhemoglobin Methemoglobin Reduced Hemoglobin Total Hemoglobin O2 Delivery Device O2 Liters/Min Minute Volume Vent Rate Vent Mode FiO2 Tidal Volume PEEP Peak Inspir Pressure Pressure Support Sodium Potassium Chloride Carbon Dioxide Anion Gap BUN Creatinine Estim Creat Clear Calc Estimated GFR Glucose POC Capillary Glucose 299 H 320 H 333 H Calcium Phosphorus Albumin 01/14/24 01/14/24 01/14/24 05:36 05:36 05:36 WBC 6.3 RBC 2.46 L Hgb 7.2 L Hct 23.8 L MCV 96.7 MCH 29.3 MCHC 30.3 L RDW 13.6 Plt Count 261 MPV 10.9 H Puncture Site ABG pH ABG pCO2 ABG pO2 ABG PO2/FiO2 Ratio ABG HCO3 ABG O2 Saturation ABG O2 Content ABG Base Excess A-a Gradient Oxyhemoglobin Carboxyhemoglobin Methemoglobin Reduced Hemoglobin Total Hemoglobin O2 Delivery Device O2 Liters/Min Minute Volume Vent Rate Vent Mode FiO2 Tidal Volume PEEP Peak Inspir Pressure Pressure Support Sodium 139 Potassium 3.7 Chloride 107 Carbon Dioxide 27 Anion Gap 5 BUN 45 H D Creatinine 2.60 H 2.50 H Estim Creat Clear Calc 20 21 Estimated GFR 19 L Glucose POC Capillary Glucose Calcium Phosphorus Albumin 01/14/24 01/14/24 01/14/24 05:36 05:52 07:58 WBC RBC Hgb Hct MCV MCH MCHC RDW Plt Count MPV Puncture Site Left brachial ABG pH 7.470 H ABG pCO2 33.2 L ABG pO2 69.0 L ABG PO2/FiO2 Ratio 3.29 ABG HCO3 23.6 ABG O2 Saturation 95.0 ABG O2 Content 14.6 L ABG Base Excess 0.4 A-a Gradient 41.0 Oxyhemoglobin 93.9 Carboxyhemoglobin 0.4 Methemoglobin 0.1 Reduced Hemoglobin 5.6 H Total Hemoglobin 11.0 L O2 Delivery Device Ventilator O2 Liters/Min Not Reportable Minute Volume Not Reportable Vent Rate 14 Vent Mode Cmv FiO2 21 Tidal Volume 300 PEEP 5 Peak Inspir Pressure Not Reportable Pressure Support Not Reportable Sodium Potassium Chloride Carbon Dioxide Anion Gap BUN Creatinine Estim Creat Clear Calc Estimated GFR 19 L Glucose 347 H POC Capillary Glucose 370 H Calcium 8.1 L Phosphorus 2.3 L Albumin 2.8 L
[2024-01-14 12:06] LABS: Glucose Point of Care 378 mg/dl (65-105)
--- NOTE | 2024-01-14 12:33 | PM.IMPN ---
Progress Note: A&P Assessment and Plan (1) Stroke: Code(s): I63.9 - Cerebral infarction, unspecified Status: Acute Assessment and Plan: Patient presented with altered mental status but at that time patient was respiratory failure acute renal failure acidosis and sepsis. CT scan on presentation showed only old stroke and encephalomalacia Since then patient has not woken up despite holding sedation for multiple days and dialysis. 01/[address] was done which showed. 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 These are likely secondary to hypotension Echo did not show any thrombus or ASD Continue aspirin and statin Neurology consult EEG 01/12 - This is an abnormal EEG due to presence of moderate diffuse background slowing suggested generalized cephalopathy. (2) Encephalopathy: Code(s): G93.40 - Encephalopathy, unspecified Status: Acute Assessment and Plan: Patient presented with encephalopathy, altered mental status, delirium, confusion -most likely related to uremia, infection, severe acidosis and baseline flow malacia from past stroke -head CT IMPRESSION: 1. No acute intracranial process. 2. 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 3. Additional more diffuse likely age-related mild to moderate diffuse volume loss and mild scattered white matter hypoattenuation consistent with chronic small vessel ischemic disease. TSH and ammonia normal Patient now is off sedation since x 4 days. Still not responsive.. Will continue hold sedatives. EEG as above Patient was dialyzed 01/11 to help with drug removal. Minimal improved Sees encephalopathy likely secondary to strokes. See above. Neurology consulted (3) Acute respiratory failure: Code(s): J96.00 - Acute respiratory failure, unspecified whether with hypoxia or hypercapnia Status: Acute Assessment and Plan: Patient had an episode of emesis in the ER, given her altered mental status encephalopathy, risk of aspiration with impending respiratory failure patient was intubated on 01/06/2025 -currently on CMV mode of ventilation, peep of 5, 50% FiO2 -ABG reviewed and currently on vent rate to 14 and tidal volume to 300 -patient placed on PSV 01/05. Will continue as tolerated -chest x-ray reviewed -sedation is on hold. -weaning will depend on improvement in mental status. (4) Acute kidney failure: Code(s): N17.9 - Acute kidney failure, unspecified Status: Acute Assessment and Plan: On chronic kidney injury, unknown cause, CT of the abdomen and pelvis did not show any hydronephrosis or urinary obstruction -significant lactic acidosis and metabolic acidosis -patient has a history of diabetes, hypertension which is likely the cause of chronic kidney disease -patient on lisinopril hydrochlorothiazide and metformin at home -patient was given a total of 3 L IV fluid bolus, 1 L in the ER and 2 L in the ICU -sodium bicarb IV pushes x4 in the ICU -patient was started on sodium bicarb infusion after discussing with Nephrology -patient was started on hemodialysis and was dialyzed x 3 days -urine output has improved - 01/11 patient was dialyzed again 1 L fluid was removed -continue to monitor urine output, electrolytes and renal function (5) Metabolic acidosis: Code(s): E87.20 - Acidosis, unspecified Status: Acute Assessment and Plan: Patient presented with significant metabolic acidosis and lactic acidosis. This could be combination of septic shock, acute kidney injury but also a possibility of metformin toxicity Patient received hemodialysis and IV bicarb. Acidosis has resolved. Further dialysis per Nephrology Monitor (6) Septic shock: Code(s): A41.9 - Sepsis, unspecified organism; R65.21 - Severe sepsis with septic shock Status: Acute Assessment and Plan: Patient hypotensive on presentation Patient was given IV fluid bolus followed by maintenance IV fluids -lactic acid has improved -Levophed weaned off -off IV fluids -source appears to be UTI. Urine and blood cultures are negative till now -continue Rocephin -discontinue stress dose steroids - 01/10 continues to have fever although other markers of infection are improved as normal WBC. Repeat blood cultures sent and pending Clark catheter change 01/11 Minimal respiratory secretions, sputum cultures growing yeast which is likely a colonization Change Rocephin to cefepime and vancomycin Obtain CT scan 01/12 continues to have low-grade fever but overall fever curve is down.. White count is normal. CT scan of chest and pelvis does not show any area suggestive of infection. Clark catheter was changed. Procalcitonin level is also on the lower side. Continue cefepime and vancomycin at this time. Cultures are pending. (7) Diastolic dysfunction: Code(s): I51.89 - Other ill-defined heart diseases Status: Acute Assessment and Plan: Echo 01/11 Summary 1. Left ventricular systolic function is normal, estimated at 60-65%. 2. There is moderately increased left ventricular wall thickness. 3. Intact interatrial septum visualized by agitated saline imaging. 4. There is mild aortic valve calcification. 5. There is mild aortic valve stenosis with a peak velocity of 190 cm/s,mean gradient of 8 mmHg, and aortic valve area of 1.8 cm2. 6. There is mild tricuspid valve regurgitation. 7. Mild pulmonary hypertension, estimated pulmonary arterial systolicpressure is 46 mmHg. (8) Insulin dependent diabetes mellitus: Status: Chronic Assessment and Plan: Continue sliding scale insulin Accu-Cheks Increased Lantus does (9) Right hemiparesis: Code(s): G81.91 - Hemiplegia, unspecified affecting right dominant side Status: Acute Assessment and Plan: History of left-sided cerebral hemisphere and CVA, residual mild aphasia and right-sided weakness (10) Seizures: Code(s): R56.9 - Unspecified convulsions Status: Acute Assessment and Plan: Patient has a history of seizures, on p.o. Keppra 500 mg p.o. q.12 hours Continue Keppra IV 500 mg IV q.24 (discuss with pharmacist) EEG negative for any seizure-like activity (11) Hypertension: Code(s): I10 - Essential (primary) hypertension Status: Acute Assessment and Plan: Continue metoprolol, hydralazine and amlodipine Subjective Date/time seen: 01/14/24 12:33 Interval history: Still unresponsive and intubated. Not on any sedation. Review of Systems Review of Systems: Unable to obtain given clinical condition as detailed above. ROS unobtainable: Yes unobtainable due to endotracheal tube, unobtainable due to medical condition and unobtainable due to mental status Exam Narrative: General: Intubated and sedated HEENT:? Pupils are equal, sluggishly reactive to light, sclera is clear, ETT in place Neck:? Supple, right IJ dialysis catheter in place Respiratory:? Coarse breath sounds bilaterally, decreased at bases no wheezing, adequate air entry Cardiac:? S1-S2 normal, regular rate and rhythm, Abdomen:? Soft, nontender, nondistended, hypoactive bowel sounds, old midline surgical scar noted Extremities:? Dry skin, decreased pedal pulses, no edema Neuro:? Patient is intubated, off sedation, PERRL, minimal grimace response to sternal painful stimuli. Opens her eyes on stimulation but does not regard examiner or is responsive. No withdrawal to pain in the extremities. Skin:? Dry and flaky skin on lower extremities, skin is warm Psych:? Unable to assess at this time Objective Data Vital Signs Vital Signs: Vital Signs - 24 hr 01/13/24 14:00 01/13/24 14:00 01/13/24 14:00 Temperature 99.8 F H Pulse Rate 93 93 85 Respiratory Rate 17 Blood Pressure 161/83 H Pulse Oximetry 99 100 Oxygen Delivery Mechanical Ventilation Fraction of Inspired Oxygen 21 01/13/24 15:21 01/13/24 15:48 01/13/24 15:51 Temperature 99.4 F Pulse Rate 81 80 96 Respiratory Rate 17 18 Blood Pressure 137/65 Pulse Oximetry 100 100 Oxygen Delivery Mechanical Ventilation Fraction of Inspired Oxygen 21 01/13/24 16:21 01/13/24 16:32 01/13/24 16:00 Temperature Pulse Rate 93 84 Respiratory Rate Blood Pressure Pulse Oximetry 100 Oxygen Delivery Mechanical Ventilation Fraction of Inspired Oxygen 21 21 01/13/24 17:02 01/13/24 18:00 01/13/24 20:18 Temperature 99.9 F H Pulse Rate 86 86 100 Respiratory Rate 18 Blood Pressure 168/69 H Pulse Oximetry 100 Oxygen Delivery Fraction of Inspired Oxygen 01/13/24 20:49 01/13/24 20:00 01/13/24 20:00 Temperature Pulse Rate 93 97 Respiratory Rate Blood Pressure Pulse Oximetry 100 Oxygen Delivery Mechanical Ventilation Mechanical Ventilation Fraction of Inspired Oxygen 21 01/13/24 22:41 01/13/24 22:44 01/13/24 20:00 Temperature 99.7 F H Pulse Rate 94 93 Respiratory Rate 20 Blood Pressure 188/76 H Pulse Oximetry 100 Oxygen Delivery Fraction of Inspired Oxygen 21 01/13/24 22:00 01/13/24 23:27 01/13/24 20:00 Temperature 100.0 F H Pulse Rate 79 87 98 Respiratory Rate 17 Blood Pressure 185/78 H Pulse Oximetry 100 100 Oxygen Delivery Mechanical Ventilation Fraction of Inspired Oxygen 21 01/13/24 22:00 01/14/24 00:00 01/14/24 00:00 Temperature 99.8 F H 100 F H Pulse Rate 79 87 87 Respiratory Rate 18 18 Blood Pressure 156/64 H 140/71 Pulse Oximetry 99 99 Oxygen Delivery Fraction of Inspired Oxygen 01/14/24 00:00 01/14/24 00:00 01/14/24 02:33 Temperature Pulse Rate 98 Respiratory Rate Blood Pressure Pulse Oximetry 100 Oxygen Delivery Mechanical Ventilation Mechanical Ventilation Fraction of Inspired Oxygen 21 21 01/14/24 02:00 01/14/24 03:07 01/14/24 02:00 Temperature 100.5 F H Pulse Rate 95 98 95 Respiratory Rate 20 Blood Pressure 156/63 H Pulse Oximetry 99 Oxygen Delivery Fraction of Inspired Oxygen 01/14/24 04:00 01/14/24 04:00 01/14/24 04:00 Temperature Pulse Rate 93 94 Respiratory Rate 22 H Blood Pressure Pulse Oximetry 99 Oxygen Delivery Mechanical Ventilation Fraction of Inspired Oxygen 21 21 01/14/24 04:00 01/14/24 05:14 01/14/24 05:46 Temperature 101 F H 101 F H Pulse Rate 93 88 Respiratory Rate 22 H Blood Pressure 142/70 H Pulse Oximetry 99 99 Oxygen Delivery Mechanical Ventilation Fraction of Inspired Oxygen 21 01/14/24 06:00 01/14/24 06:00 01/14/24 06:14 Temperature 101.1 F H Pulse Rate 89 89 Respiratory Rate 20 Blood Pressure 147/75 H Pulse Oximetry 97 Oxygen Delivery Fraction of Inspired Oxygen 01/14/24 08:00 01/14/24 08:08 01/14/24 08:11 Temperature 100.6 F H Pulse Rate 101 H 95 98 Respiratory Rate 16 Blood Pressure 154/60 H Pulse Oximetry 100 100 Oxygen Delivery Mechanical Ventilation Fraction of Inspired Oxygen 21 01/14/24 09:14 01/14/24 11:08 01/14/24 10:00 Temperature 100.8 F H Pulse Rate 90 78 79 Respiratory Rate 23 H Blood Pressure 105/56 L Pulse Oximetry 100 100 99 Oxygen Delivery Mechanical Ventilation Mechanical Ventilation Fraction of Inspired Oxygen 21 21 01/14/24 12:00 Temperature 100.5 F H Pulse Rate 89 Respiratory Rate 22 H Blood Pressure 172/79 H Pulse Oximetry 99 Oxygen Delivery Fraction of Inspired Oxygen Intake/Output Intake/Output: Intake & Output 01/11/24 01/12/24 01/13/24 01/14/24 23:59 23:59 23:59 23:59 Intake Total 1666 1766 2510 638 Output Total 5699 8746 4700 800 Balance -834 -960 -2190 -162 Meds/Results Medications: Active Medications Generic Name Dose Route Start Last Admin Trade Name Freq PRN Reason Stop Dose Admin Acetaminophen 650 mg 01/10/24 08:02 01/14/24 05:14 Acetaminophen 325 Mg Tablet FEED TUBE 650 mg Q6H PRN Administration Mild Pain (1-3) or Fever Amlodipine Besylate 10 mg 01/11/24 14:05 01/14/24 08:11 Amlodipine Besylate 10 Mg Tablet FEED TUBE 10 mg DAILY CARMELA Administration Aspirin 325 mg 01/12/24 16:00 01/14/24 08:11 Aspirin 325 Mg Tablet FEED TUBE 325 mg DAILY@0800 CARMELA Administration Atorvastatin Calcium 40 mg 01/13/24 09:00 01/14/24 08:11 Atorvastatin 40 Mg Tablet FEED TUBE 40 mg DAILY CARMELA Administration Dextrose 12.5 gm 01/07/24 13:18 Dextrose 50% 25 Gm/50 Ml Syringe IV PUSH PRN PRN Hypoglycemia Protocol Epoetin Dane-epbx 10,000 units 01/12/24 09:20 01/12/24 11:55 Epoetin Dane-Epbx 10,000 Units/Ml Vial SUB-Q 10,000 units MOWEFR@09 CARMELA Administration Glucagon 1 mg 01/07/24 13:18 Glucagon For Inj 1 Mg Vial IM PRN PRN Hypoglycemia Protocol Glucose 15 gm 01/07/24 13:18 Glucose Oral Gel 15 Gm Of Glucse In 37.5 Gm Tube PO PRN PRN Hypoglycemia Protocol Heparin Sodium (Porcine) 5,000 units 01/07/24 21:00 01/14/24 08:12 Heparin Sodium 5,000 Units/Ml Vial SUB-Q 5,000 units Q12HR CARMELA Administration Hydralazine HCl 10 mg 01/12/24 08:00 01/14/24 08:11 Hydralazine 10 Mg Tablet FEED TUBE 10 mg Q6H CARMELA Administration Dextrose 1,000 mls @ 100 mls/hr 01/07/24 13:18 Dextrose 5% 1,000 Ml IVPB PRN PRN Hypoglycemia Protocol Albumin Human 50 mls @ 999 mls/hr 01/07/24 17:11 01/12/24 10:30 Albutein IVPB 02/06/24 17:10 Infused Q10M PRN Infusion HYPOTENSION Levetiracetam 500 mg in 100 mls @ 400 mls/hr 01/07/24 21:00 01/13/24 20:34 Keppra Iv IVPB Infused Q24H CARMELA Infusion Cefepime HCl 1 gm in 50 mls @ 100 mls/hr 01/12/24 12:00 01/14/24 00:54 Maxipime 1 Gm/Ns 50 Ml IVPB Infused Q12H CARMELA Infusion Vancomycin HCl 1,250 mg in 250 mls @ 166.667 mls/hr 01/13/24 11:00 01/13/24 11:03 Vancomycin 1,250 Mg/Ns 250 Ml IVPB 166.67 mls/hr Q36H CARMELA Administration Insulin Aspart 4 - 8 units 01/10/24 07:55 01/14/24 08:15 Insulin Aspart (*Bkc) 100 Units/Ml SUB-Q 8 units Q4H CARMELA Administration Protocol Insulin Glargine 65 units 01/14/24 09:00 01/14/24 08:13 Insulin Glargine (*Bkc) 100 Units/Ml SUB-Q 65 units QAM CARMELA Administration Labetalol HCl 20 mg 01/08/24 14:39 01/14/24 03:07 Labetalol Hcl Inj 100 Mg/20 Ml Vial IV PUSH 20 mg Q4H PRN Administration Hypertension Metoprolol Tartrate 50 mg 01/12/24 09:00 01/14/24 08:11 Metoprolol Tartrate 50 Mg Tab FEED TUBE 50 mg Q12HR CARMELA Administration Multi-Ingred Cream/Lotion/Oil/Oint 1 applic 01/07/24 21:00 01/14/24 08:12 Mineral Oil/White Petrolatum Ointment EACH EYE 1 applic Q12HR CARMELA Administration Pantoprazole Sodium 40 mg 01/07/24 21:00 01/14/24 08:12 Pantoprazole Sodium Iv 40 Mg Vial IV PUSH 40 mg Q12HR CARMELA Administration Perflutren Lipid Microsphere 0 ml 01/12/24 16:00 Perflutren Lipid Microspheres 1.5 Ml Vial Diluted To 10 Ml Total Volume IV PUSH 01/15/24 16:01 ONCE PRN adequate visualization Protocol Radiology Results: ITS Impressions Abdomen/Pelvis CT 01/07/24 16:52 IMPRESSION: No acute abdominopelvic process. Specifically, there is no CT evidence of bowel obstruction. No definite evidence of renal injury, noting that low-grade renal injury as can be difficult to detect without contrast. Renal Ultrasound 01/08/24 10:47 IMPRESSION: 1. Normal kidney sizes. No hydronephrosis. Chest/Abdomen/Pelvis CT 01/12/24 15:08 IMPRESSION: Interval enlargement of the liver, when compared with previous examination. Flattening of the inferior vena cava suggesting severe hypovolemia. Interval development of basilar atelectasis and trace bilateral pleural effusions. No additional findings which represents a change from prior examination performed 01/07/2024. Supportive devices are in good position. Redemonstration of multiple stones within the gallbladder which is not distended. Head CT 01/12/24 15:31 IMPRESSION: 1. 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 2. Large distribution of chronic encephalomalacia in the expected distribution of left middle cerebral artery. Abdomen Ultrasound 01/13/24 09:31 IMPRESSION: 1. Cholelithiasis. 2. Normal liver Doppler. Arterial/Peripheral Duplex 01/13/24 09:31 IMPRESSION: 1. Cholelithiasis. 2. Normal liver Doppler. Chest X-Ray 01/14/24 08:37 IMPRESSION: 1. Mild atelectasis at left lung base. Labs Labs: Laboratory Results - last 24 hr 01/13/24 01/13/24 01/14/24 16:21 20:13 00:26 WBC RBC Hgb Hct MCV MCH MCHC RDW Plt Count MPV Puncture Site ABG pH ABG pCO2 ABG pO2 ABG PO2/FiO2 Ratio ABG HCO3 ABG O2 Saturation ABG O2 Content ABG Base Excess A-a Gradient Oxyhemoglobin Carboxyhemoglobin Methemoglobin Reduced Hemoglobin Total Hemoglobin O2 Delivery Device O2 Liters/Min Minute Volume Vent Rate Vent Mode FiO2 Tidal Volume PEEP Peak Inspir Pressure Pressure Support Sodium Potassium Chloride Carbon Dioxide Anion Gap BUN Creatinine Estim Creat Clear Calc Estimated GFR Glucose POC Capillary Glucose 339 H 299 H 320 H Calcium Phosphorus Albumin 01/14/24 01/14/24 01/14/24 03:11 05:36 05:36 WBC 6.3 RBC 2.46 L Hgb 7.2 L Hct 23.8 L MCV 96.7 MCH 29.3 MCHC 30.3 L RDW 13.6 Plt Count 261 MPV 10.9 H Puncture Site ABG pH ABG pCO2 ABG pO2 ABG PO2/FiO2 Ratio ABG HCO3 ABG O2 Saturation ABG O2 Content ABG Base Excess A-a Gradient Oxyhemoglobin Carboxyhemoglobin Methemoglobin Reduced Hemoglobin Total Hemoglobin O2 Delivery Device O2 Liters/Min Minute Volume Vent Rate Vent Mode FiO2 Tidal Volume PEEP Peak Inspir Pressure Pressure Support Sodium 139 Potassium 3.7 Chloride 107 Carbon Dioxide 27 Anion Gap 5 BUN 45 H D Creatinine 2.60 H 2.50 H Estim Creat Clear Calc 20 Estimated GFR Glucose POC Capillary Glucose 333 H Calcium Phosphorus Albumin 01/14/24 01/14/24 01/14/24 05:36 05:36 05:52 WBC RBC Hgb Hct MCV MCH MCHC RDW Plt Count MPV Puncture Site Left brachial ABG pH 7.470 H ABG pCO2 33.2 L ABG pO2 69.0 L ABG PO2/FiO2 Ratio 3.29 ABG HCO3 23.6 ABG O2 Saturation 95.0 ABG O2 Content 14.6 L ABG Base Excess 0.4 A-a Gradient 41.0 Oxyhemoglobin 93.9 Carboxyhemoglobin 0.4 Methemoglobin 0.1 Reduced Hemoglobin 5.6 H Total Hemoglobin 11.0 L O2 Delivery Device Ventilator O2 Liters/Min Not Reportable Minute Volume Not Reportable Vent Rate 14 Vent Mode Cmv FiO2 21 Tidal Volume 300 PEEP 5 Peak Inspir Pressure Not Reportable Pressure Support Not Reportable Sodium Potassium Chloride Carbon Dioxide Anion Gap BUN Creatinine Estim Creat Clear Calc 21 Estimated GFR 19 L 19 L Glucose 347 H POC Capillary Glucose Calcium 8.1 L Phosphorus 2.3 L Albumin 2.8 L 01/14/24 01/14/24 07:58 12:04 WBC RBC Hgb Hct MCV MCH MCHC RDW Plt Count MPV Puncture Site ABG pH ABG pCO2 ABG pO2 ABG PO2/FiO2 Ratio ABG HCO3 ABG O2 Saturation ABG O2 Content ABG Base Excess A-a Gradient Oxyhemoglobin Carboxyhemoglobin Methemoglobin Reduced Hemoglobin Total Hemoglobin O2 Delivery Device O2 Liters/Min Minute Volume Vent Rate Vent Mode FiO2 Tidal Volume PEEP Peak Inspir Pressure Pressure Support Sodium Potassium Chloride Carbon Dioxide Anion Gap BUN Creatinine Estim Creat Clear Calc Estimated GFR Glucose POC Capillary Glucose 370 H 378 H Calcium Phosphorus Albumin Quality VTE Prophylaxis VTE prophylaxis: mechanical ordered and pharmacologic ordered Hospitalist MIPS Advance Care Plan I have confirmed that the patient's Advanced Care Plan is present, code status is documented, or surrogate decision maker is listed in patient medical record.: Yes Medication Reconciliation I have utilized all available resources to obtain, update and review the patients current medications (includes all prescriptions, OTC, herbals, cannabis, and nutritional supplements).: Yes
[2024-01-14 16:26] LABS: Glucose Point of Care 319 mg/dl (65-105)
[2024-01-14] MEDS: levETIRAcetam 500MG/NACL 100ML 500 MG/100 ML BAG 400 MG IVPB (20:08)
[2024-01-14 20:21] LABS: Glucose Point of Care 352 mg/dl (65-105)
[2024-01-14] MEDS: VANCOMYCIN 1,250 MG/NS 250 ML 1,250 MG/250 ML BAG 166.67 MG IVPB (23:26)
[2024-01-14 23:37] LABS: Glucose Point of Care 318 mg/dl (65-105)
[2024-01-15] VITALS (24 sets, daily range): BP systolic 107–181; BP diastolic 55–87; PULSE 81–118; RESP 17–24; TEMP 37.8–38.8; O2SAT 99–100
[2024-01-15] MEDS: CEFEPIME 1 GM/NS 50 ML 1 GM/50 ML BAG IVPB ×2 (01:00→12:21)
[2024-01-15] MEDS: hydrALAZINE 10 MG TABLET FEED TUBE ×4 (01:04→20:29)
[2024-01-15 03:58] LABS: Glucose Point of Care 335 mg/dl (65-105)
[2024-01-15] MEDS: INSULIN ASPART (*BKC) 100 UNITS/ML SUB-Q ×5 (03:58→20:13)
[2024-01-15] MEDS: LABETALOL HCL INJ 100 MG/20 ML VIAL 20 MG IV PUSH ×2 (04:00→20:29)
[2024-01-15 05:40] LABS: Alveolar/Arterial O2 Gradient 26.2 mmHg; Base Excess ABG 2.9 mEq/l (+/-2.0); Carboxyhemoglobin 0.7 % THb (0-2.0); Device VENTILATOR; Fractional Inspired Oxygen 21 %; HCO3 ABG 26.2 mEq/l (22.0-26.0); Methemoglobin ABG 0.1 %THb (0-1.5); Oxygen Content ABG 10.9 %vol (16.0-22.0); Oxyhemoglobin 95.9 % THb (90.0-100.0); PCO2 ABG 34.4 mmHg (35.0-45.0); PO2 ABG 82.3 mmHg (80.0-100.0); PO2 FiO2 Ratio Arterial Blood 3.92 %; Reduced Hemoglobin 3.3 %THb (0-5.0); Site Drawn RIGHT BRACHIAL; pH ABG 7.499 (7.350-7.450)
[2024-01-15 05:41] LABS: Arterial Blood Gas PEEP 5 cmH2O; Arterial Blood Gas Tidal Volume 300 ml; Arterial Blood Gas Vent Mode CMV; Arterial Blood Gas Ventilator rate 14 /MIN
[2024-01-15 05:42] LABS: Hematocrit 24.9 % (37.0-47.0); Hemoglobin 7.5 g/dL (12.0-15.0); Mean Corpuscular HGB Conc 30.1 g/dl (32-36); Mean Corpuscular Hemoglobin 29.4 pg (26-34); Mean Corpuscular Volume 97.6 fl (80-100); Mean Platelet Volume 10.9 fl (7.4-10.4); Platelet Count Result 323 k/mm3 (150-375); Red Blood Count 2.55 M/mm3 (4.2-5.4); Red Cell Distribution Width 13.7 % (11.5-14.5); White Blood Count 7.1 K/mm3 (4.5-10.0)
[2024-01-15 05:52] LABS: Estimated CRCL calculation 19 ml/min; Estimated Glomerular Filt Rate 17
[2024-01-15 07:29] LABS: Anion Gap 9 mmol/L (4-12); Blood Urea Nitrogen 56 mg/dL (7-17); Calcium 8.4 mg/dL (8.4-10.2); Carbon Dioxide 26 mmol/L (22-30); Chloride 108 mmol/L (98-107); Estimated CRCL calculation 19 ml/min; Estimated Glomerular Filt Rate 17; Glucose 372 mg/dL (65-110); Potassium 3.4 mmol/L (3.4-5.0); Sodium 143 mmol/L (137-145)
[2024-01-15 07:56] LABS: Glucose Point of Care 383 mg/dl (65-105)
[2024-01-15] MEDS: INSULIN GLARGINE (*BKC) 100 UNITS/ML 75 UNITS SUB-Q (08:07)
[2024-01-15] MEDS: METOPROLOL TARTRATE 50 MG TAB FEED TUBE ×2 (08:10→20:29)
[2024-01-15] MEDS: amLODIPine BESYLATE 10 MG TABLET FEED TUBE (08:10)
[2024-01-15] MEDS: ATORVASTATIN 40 MG TABLET FEED TUBE (08:10)
[2024-01-15] MEDS: EPOETIN ALFA-EPBX 10,000 UNITS/ML VIAL 10000 UNITS SUB-Q (08:11)
[2024-01-15] MEDS: ASPIRIN 325 MG TABLET FEED TUBE (08:11)
[2024-01-15] MEDS: POTASSIUM CHLORIDE 20 MEQ PACKET (FOR LIQUID) 40 MEQ FEED TUBE (08:11)
[2024-01-15] MEDS: MINERAL OIL/WHITE PETROLATUM OINTMENT 1 APPLIC EACH EYE ×2 (08:11→20:29)
[2024-01-15] MEDS: PANTOPRAZOLE SODIUM IV 40 MG VIAL IV PUSH ×2 (08:11→20:29)
[2024-01-15] MEDS: HEPARIN SODIUM 5,000 UNITS/ML VIAL 5000 UNITS SUB-Q (08:11)
[2024-01-15] MEDS: ACETAMINOPHEN 325 MG TABLET 650 MG FEED TUBE ×2 (08:16→14:20)
--- NOTE | 2024-01-15 09:05 | P.PNINT_ITS ---
Progress Note: A&P Assessment and Plan (1) Stroke: Code(s): I63.9 - Cerebral infarction, unspecified Status: Acute Assessment and Plan: Patient presented with altered mental status but at that time patient was respiratory failure acute renal failure acidosis and sepsis. CT scan on presentation showed only old stroke and encephalomalacia Since then patient has not woken up despite holding sedation for multiple days and dialysis. 01/[address] was done which showed. 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 These are likely secondary to hypotension Echo did not show any thrombus or ASD Continue aspirin and statin Neurology following EEG 01/12 - This is an abnormal EEG due to presence of moderate diffuse ba ckground slowing suggested generalized cephalopathy. No significant change in neurological status (2) Encephalopathy: Code(s): G93.40 - Encephalopathy, unspecified Status: Acute Assessment and Plan: Patient presented with encephalopathy, altered mental status, delirium, confusion -most likely related to uremia, infection, severe acidosis and baseline flow malacia from past stroke -head CT IMPRESSION: 1. No acute intracranial process. 2. 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 3. Additional more diffuse likely age-related mild to moderate diffuse volume loss and mild scattered white matter hypoattenuation consistent with chronic small vessel ischemic disease. TSH and ammonia normal Patient now is off sedation since x 4 days. Still not responsive.. Will continue hold sedatives. EEG as above Patient was dialyzed 01/11 to help with drug removal. Minimal improved Sees encephalopathy likely secondary to strokes. See above. Neurology following (3) Acute respiratory failure: Code(s): J96.00 - Acute respiratory failure, unspecified whether with hypoxia or hypercapnia Status: Acute Assessment and Plan: Patient had an episode of emesis in the ER, given her altered mental status e ncephalopathy, risk of aspiration with impending respiratory failure patient was intubated on 01/06/2025 -currently on CMV mode of ventilation, peep of 5, 50% FiO2 -ABG reviewed and currently on vent rate to 14 and tidal volume to 300 -patient placed on PSV 01/05. Patient was switched back to CMV after some time due to multiple apnea events -chest x-ray reviewed -sedation is on hold. -weaning will depend on improvement in mental status. (4) Acute kidney failure: Code(s): N17.9 - Acute kidney failure, unspecified Status: Acute Assessment and Plan: On chronic kidney injury, unknown cause, CT of the abdomen and pelvis did not show any hydronephrosis or urinary obstruction -significant lactic acidosis and metabolic acidosis -patient has a history of diabetes, hypertension which is likely the cause of chronic kidney disease -patient on lisinopril hydrochlorothiazide and metformin at home -patient was given a total of 3 L IV fluid bolus, 1 L in the ER and 2 L in the ICU -sodium bicarb IV pushes x4 in the ICU -patient was started on sodium bicarb infusion after discussing with Nephrology -patient was started on hemodialysis and was dialyzed x 3 days -urine output has improved - 01/11 patient was dialyzed again 1 L fluid was removed -continue to monitor urine output, electrolytes and renal function (5) Metabolic acidosis: Code(s): E87.20 - Acidosis, unspecified Status: Acute Assessment and Plan: Patient presented with significant metabolic acidosis and lactic acidosis. This could be combination of septic shock, acute kidney injury but also a possibility of metformin toxicity Patient received hemodialysis and IV bicarb. Acidosis has resolved. Further dialysis per Nephrology Monitor (6) Septic shock: Code(s): A41.9 - Sepsis, unspecified organism; R65.21 - Severe sepsis with septic shock Status: Acute Assessment and Plan: Patient hypotensive on presentation Patient was given IV fluid bolus followed by maintenance IV fluids -lactic acid has improved -Levophed weaned off -off IV fluids -source appears to be UTI. Urine and blood cultures are negative till now -continue Rocephin -discontinue stress dose steroids - 01/10 continues to have fever although other markers of infection are improved as normal WBC. Repeat blood cultures sent and pending Clark catheter change 01/11 Minimal respiratory secretions, sputum cultures growing yeast which is likely a colonization Change Rocephin to cefepime and vancomycin Patient continues to have low-grade fever but overall fever curve is down.. White count is normal. CT scan of chest and pelvis does not show any area suggestive of infection. Clark catheter was changed. Procalcitonin level is also on the lower side. Continue cefepime but will discontinue vancomycin at this time. Cultures are negative till now. Will check lipase and lower extremity venous Dopplers (7) Diastolic dysfunction: Code(s): I51.89 - Other ill-defined heart diseases Status: Acute Assessment and Plan: Echo 01/11 Summary 1. Left ventricular systolic function is normal, estimated at 60-65%. 2. There is moderately increased left ventricular wall thickness. 3. Intact interatrial septum visualized by agitated saline imaging. 4. There is mild aortic valve calcification. 5. There is mild aortic valve stenosis with a peak velocity of 190 cm/s,mean gradient of 8 mmHg, and aortic valve area of 1.8 cm2. 6. There is mild tricuspid valve regurgitation. 7. Mild pulmonary hypertension, estimated pulmonary arterial systolicpressure is 46 mmHg. (8) Insulin dependent diabetes mellitus: Status: Chronic Assessment and Plan: Continue sliding scale insulin Accu-Cheks Increased Lantus does (9) Right hemiparesis: Code(s): G81.91 - Hemiplegia, unspecified affecting right dominant side Status: Acute Assessment and Plan: History of left-sided cerebral hemisphere and CVA, residual mild aphasia and right-sided weakness (10) Seizures: Code(s): R56.9 - Unspecified convulsions Status: Acute Assessment and Plan: Patient has a history of seizures, on p.o. Keppra 500 mg p.o. q.12 hours Continue Keppra IV 500 mg IV q.24 (discuss with pharmacist) EEG negative for any seizure-like activity (11) Hypertension: Code(s): I10 - Essential (primary) hypertension Status: Acute Assessment and Plan: Continue metoprolol, hydralazine and amlodipine Plan DVT prophylaxis: Heparin SQ Stress ulcer prophylaxis: Protonix Nutrition: Continue tube feeds Code Status: DNR Critical Care Time Spent: 30 minutes Due to a high probability of clinically significant, life threatening deterioration, the patient required my highest level of preparedness to intervene emergently and I personally spent this critical care time directly and personally managing the patient. This critical care time included obtaining a history; examining the patient; pulse oximetry; ordering and review of studies; arranging urgent treatment with development of a management plan; evaluation of patient's response to treatment; frequent reassessment; and discussions with other providers. It was exclusive of separately billable procedures and treating other patients and teaching time. Please see Assessment and Plan section and the rest of the note for further information on patient assessment and treatment This dictation may have been done utilizing a voice recognition system. Attempts have been made to correct errors. However, there may be uncorrected grammatical, spelling, and recognitions errors present. Subjective Date/time seen: 01/15/24 Overnight events reviewed. Low-grade fever Continues to be on mechanical ventilation 21% FiO2 Continues to be off of all infusions Good urine output Tolerating tube feeds Other Vitals acceptable No change in mental status Review of Systems Review of Systems: ROS unobtainable: Yes unobtainable due to endotracheal tube, unobtainable due to medical condition and unobtainable due to mental status Exam Narrative: General: Intubated and sedated HEENT:? Pupils are equal, sluggishly reactive to light, sclera is clear, ETT in place Neck:? Supple, right IJ dialysis catheter in place Respiratory:? Coarse breath sounds bilaterally, decreased at bases no wheezing, adequate air entry Cardiac:? S1-S2 normal, regular rate and rhythm, Abdomen:? Soft, nontender, nondistended, hypoactive bowel sounds, old midline surgical scar noted Extremities:? Dry skin, decreased pedal pulses, no edema Neuro:? Patient is intubated, off sedation, PERRL, minimal grimace response to sternal painful stimuli. Opens her eyes on stimulation but does not regard examiner or is responsive. No withdrawal to pain in the extremities. Skin:? Dry and flaky skin on lower extremities, skin is warm Psych:? Unable to assess at this time Objective Data Vital Signs Vital Signs: Vital Signs - 24 hr 01/14/24 09:14 01/14/24 11:08 01/14/24 10:00 Temperature 38.2 C H Pulse Rate 90 78 79 Respiratory Rate 23 H Blood Pressure 105/56 L Pulse Oximetry 100 100 99 Oxygen Delivery Mechanical Ventilation Mechanical Ventilation Fraction of Inspired Oxygen 21 01/14/24 12:00 01/14/24 13:37 01/14/24 10:00 Temperature 38.1 C H Pulse Rate 89 89 79 Respiratory Rate 22 H Blood Pressure 172/79 H Pulse Oximetry 99 100 Oxygen Delivery Mechanical Ventilation Fraction of Inspired Oxygen 01/14/24 12:00 01/14/24 14:00 01/14/24 12:00 Temperature Pulse Rate 88 89 Respiratory Rate Blood Pressure Pulse Oximetry Oxygen Delivery Mechanical Ventilation Fraction of Inspired Oxygen 01/14/24 12:00 01/14/24 14:00 01/14/24 16:00 Temperature 37.8 C H 37.8 C H Pulse Rate 89 101 H Respiratory Rate 22 H 18 Blood Pressure 143/77 H 138/60 Pulse Oximetry 100 100 Oxygen Delivery Fraction of Inspired Oxygen 21 01/14/24 16:32 01/14/24 18:00 01/14/24 16:00 Temperature 38.1 C H Pulse Rate 95 91 Respiratory Rate 17 Blood Pressure 144/71 H Pulse Oximetry 100 100 Oxygen Delivery Mechanical Ventilation Mechanical Ventilation Fraction of Inspired Oxygen 21 21 01/14/24 16:00 01/14/24 16:00 01/14/24 18:00 Temperature Pulse Rate 98 91 Respiratory Rate Blood Pressure Pulse Oximetry Oxygen Delivery Fraction of Inspired Oxygen 21 01/14/24 20:00 01/14/24 20:07 01/14/24 20:00 Temperature 38.2 C H Pulse Rate 93 93 Respiratory Rate 18 Blood Pressure 133/58 L Pulse Oximetry 99 Oxygen Delivery Fraction of Inspired Oxygen 21 01/14/24 20:00 01/14/24 20:05 01/14/24 20:00 Temperature Pulse Rate 92 93 Respiratory Rate Blood Pressure Pulse Oximetry 100 Oxygen Delivery Mechanical Ventilation Mechanical Ventilation Fraction of Inspired Oxygen 21 21 01/14/24 22:00 01/14/24 22:00 01/14/24 22:20 Temperature 38.3 C H 38.3 C H Pulse Rate 90 90 Respiratory Rate 21 H Blood Pressure 154/56 H Pulse Oximetry 99 Oxygen Delivery Fraction of Inspired Oxygen 01/14/24 23:20 01/15/24 00:00 01/15/24 00:00 Temperature 38.4 C H Pulse Rate Respiratory Rate Blood Pressure Pulse Oximetry Oxygen Delivery Mechanical Ventilation Fraction of Inspired Oxygen 21 21 01/15/24 00:00 01/14/24 23:11 01/15/24 00:00 Temperature 38.2 C H Pulse Rate 85 79 81 Respiratory Rate 21 H Blood Pressure 113/82 Pulse Oximetry 99 99 Oxygen Delivery Mechanical Ventilation Fraction of Inspired Oxygen 21 01/15/24 01:00 01/15/24 02:00 01/15/24 02:00 Temperature 38.1 C H 38.3 C H Pulse Rate 98 97 97 Respiratory Rate 24 H 21 H Blood Pressure 181/71 H 172/82 H Pulse Oximetry 100 99 Oxygen Delivery Fraction of Inspired Oxygen 01/15/24 04:00 01/15/24 04:00 01/15/24 04:00 Temperature 37.8 C H Pulse Rate 102 H 102 H Respiratory Rate 17 Blood Pressure 181/78 H Pulse Oximetry 100 Oxygen Delivery Mechanical Ventilation Fraction of Inspired Oxygen 21 01/15/24 04:00 01/15/24 02:02 01/15/24 04:51 Temperature Pulse Rate 105 H 97 Respiratory Rate Blood Pressure Pulse Oximetry 99 100 Oxygen Delivery Mechanical Ventilation Mechanical Ventilation Fraction of Inspired Oxygen 21 21 21 01/15/24 04:00 01/15/24 06:00 01/15/24 06:00 Temperature 38.1 C H Pulse Rate 87 95 95 Respiratory Rate 18 Blood Pressure 172/67 H Pulse Oximetry 100 Oxygen Delivery Fraction of Inspired Oxygen 01/15/24 08:00 01/15/24 08:10 01/15/24 08:16 Temperature 38.6 C H 38.6 C H Pulse Rate 110 H 98 Respiratory Rate 22 H Blood Pressure 167/63 H Pulse Oximetry 100 Oxygen Delivery Fraction of Inspired Oxygen 01/15/24 08:26 Temperature Pulse Rate 101 H Respiratory Rate Blood Pressure Pulse Oximetry 100 Oxygen Delivery Mechanical Ventilation Fraction of Inspired Oxygen 21 Intake/Output Intake/Output: Intake & Output 01/12/24 01/13/24 01/14/24 01/15/24 23:59 23:59 23:59 23:59 Intake Total 1766 2760 1565 1090 Output Total 2726 4700 1375 975 Balance -960 -1940 190 115 Meds/Results Medications: Active Medications Generic Name Dose Route Start Last Admin Trade Name Freq PRN Reason Stop Dose Admin Acetaminophen 650 mg 01/10/24 08:02 01/15/24 08:16 Acetaminophen 325 Mg Tablet FEED TUBE 650 mg Q6H PRN Administration Mild Pain (1-3) or Fever Amlodipine Besylate 10 mg 01/11/24 14:05 01/15/24 08:10 Amlodipine Besylate 10 Mg Tablet FEED TUBE 10 mg DAILY CARMELA Administration Aspirin 325 mg 01/12/24 16:00 01/15/24 08:11 Aspirin 325 Mg Tablet FEED TUBE 325 mg DAILY@0800 CARMELA Administration Atorvastatin Calcium 40 mg 01/13/24 09:00 01/15/24 08:10 Atorvastatin 40 Mg Tablet FEED TUBE 40 mg DAILY CARMELA Administration Dextrose 12.5 gm 01/07/24 13:18 Dextrose 50% 25 Gm/50 Ml Syringe IV PUSH PRN PRN Hypoglycemia Protocol Epoetin Dane-epbx 10,000 units 01/12/24 09:20 01/15/24 08:11 Epoetin Dane-Epbx 10,000 Units/Ml Vial SUB-Q 10,000 units MOWEFR@09 CARMELA Administration Glucagon 1 mg 01/07/24 13:18 Glucagon For Inj 1 Mg Vial IM PRN PRN Hypoglycemia Protocol Glucose 15 gm 01/07/24 13:18 Glucose Oral Gel 15 Gm Of Glucse In 37.5 Gm Tube PO PRN PRN Hypoglycemia Protocol Heparin Sodium (Porcine) 5,000 units 01/07/24 21:00 01/15/24 08:11 Heparin Sodium 5,000 Units/Ml Vial SUB-Q 5,000 units Q12HR CARMELA Administration Hydralazine HCl 10 mg 01/12/24 08:00 01/15/24 08:10 Hydralazine 10 Mg Tablet FEED TUBE 10 mg Q6H CARMELA Administration Dextrose 1,000 mls @ 100 mls/hr 01/07/24 13:18 Dextrose 5% 1,000 Ml IVPB PRN PRN Hypoglycemia Protocol Albumin Human 50 mls @ 999 mls/hr 01/07/24 17:11 01/12/24 10:30 Albutein IVPB 02/06/24 17:10 Infused Q10M PRN Infusion HYPOTENSION Levetiracetam 500 mg in 100 mls @ 400 mls/hr 01/07/24 21:00 01/14/24 20:23 Keppra Iv IVPB Infused Q24H CARMELA Infusion Cefepime HCl 1 gm in 50 mls @ 100 mls/hr 01/12/24 12:00 01/15/24 01:30 Maxipime 1 Gm/Ns 50 Ml IVPB Infused Q12H CARMELA Infusion Vancomycin HCl 1,250 mg in 250 mls @ 166.667 mls/hr 01/13/24 11:00 01/15/24 00:56 Vancomycin 1,250 Mg/Ns 250 Ml IVPB Infused Q36H CARMELA Infusion Insulin Aspart 4 - 8 units 01/10/24 07:55 01/15/24 08:09 Insulin Aspart (*Bkc) 100 Units/Ml SUB-Q 8 units Q4H CARMELA Administration Protocol Insulin Glargine 75 units 01/15/24 09:00 01/15/24 08:07 Insulin Glargine (*Bkc) 100 Units/Ml SUB-Q 75 units QAM CARMELA Administration Labetalol HCl 20 mg 01/08/24 14:39 01/15/24 04:00 Labetalol Hcl Inj 100 Mg/20 Ml Vial IV PUSH 20 mg Q4H PRN Administration Hypertension Metoprolol Tartrate 50 mg 01/12/24 09:00 01/15/24 08:10 Metoprolol Tartrate 50 Mg Tab FEED TUBE 50 mg Q12HR CARMELA Administration Multi-Ingred Cream/Lotion/Oil/Oint 1 applic 01/07/24 21:00 01/15/24 08:11 Mineral Oil/White Petrolatum Ointment EACH EYE 1 applic Q12HR CARMELA Administration Pantoprazole Sodium 40 mg 01/07/24 21:00 01/15/24 08:11 Pantoprazole Sodium Iv 40 Mg Vial IV PUSH 40 mg Q12HR CARMELA Administration Perflutren Lipid Microsphere 0 ml 01/12/24 16:00 Perflutren Lipid Microspheres 1.5 Ml Vial Diluted To 10 Ml Total Volume IV PUSH 01/15/24 16:01 ONCE PRN adequate visualization Protocol Potassium Bicarbonate 50 meq 01/15/24 11:00 Potassium Bicarbonate 25 Meq Tabef PO 01/15/24 11:01 ONCE ONE Radiology Results: ITS Impressions Abdomen/Pelvis CT 01/07/24 16:52 IMPRESSION: No acute abdominopelvic process. Specifically, there is no CT evidence of bowel obstruction. No definite evidence of renal injury, noting that low-grade renal injury as can be difficult to detect without contrast. Renal Ultrasound 01/08/24 10:47 IMPRESSION: 1. Normal kidney sizes. No hydronephrosis. Chest/Abdomen/Pelvis CT 01/12/24 15:08 IMPRESSION: Interval enlargement of the liver, when compared with previous examination. Flattening of the inferior vena cava suggesting severe hypovolemia. Interval development of basilar atelectasis and trace bilateral pleural effusions. No additional findings which represents a change from prior examination performed 01/07/2024. Supportive devices are in good position. Redemonstration of multiple stones within the gallbladder which is not dis tended. Head CT 01/12/24 15:31 IMPRESSION: 1. 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 2. Large distribution of chronic encephalomalacia in the expected distribution of left middle cerebral artery. Abdomen Ultrasound 01/13/24 09:31 IMPRESSION: 1. Cholelithiasis. 2. Normal liver Doppler. Arterial/Peripheral Duplex 01/13/24 09:31 IMPRESSION: 1. Cholelithiasis. 2. Normal liver Doppler. Chest X-Ray 01/15/24 06:22 Impression: Clear lungs. Support tubes, as above. Labs Labs: Laboratory Results - last 24 hr 01/13/24 01/14/24 01/14/24 04:56 12:04 16:24 WBC RBC Hgb Hct MCV MCH MCHC RDW Plt Count MPV Puncture Site ABG pH ABG pCO2 ABG pO2 ABG PO2/FiO2 Ratio ABG HCO3 ABG O2 Saturation ABG O2 Content ABG Base Excess A-a Gradient Oxyhemoglobin Carboxyhemoglobin Methemoglobin Reduced Hemoglobin Total Hemoglobin O2 Delivery Device O2 Liters/Min Minute Volume Not Reportable Vent Rate Vent Mode FiO2 Tidal Volume PEEP Peak Inspir Pressure Not Reportable Pressure Support Not Reportable Sodium Potassium Chloride Carbon Dioxide Anion Gap BUN Creatinine Estim Creat Clear Calc Estimated GFR Glucose POC Capillary Glucose 378 H 319 H Calcium Random Vancomycin 01/14/24 01/14/24 01/14/24 20:19 22:27 23:22 WBC RBC Hgb Hct MCV MCH MCHC RDW Plt Count MPV Puncture Site ABG pH ABG pCO2 ABG pO2 ABG PO2/FiO2 Ratio ABG HCO3 ABG O2 Saturation ABG O2 Content ABG Base Excess A-a Gradient Oxyhemoglobin Carboxyhemoglobin Methemoglobin Reduced Hemoglobin Total Hemoglobin O2 Delivery Device O2 Liters/Min Minute Volume Vent Rate Vent Mode FiO2 Tidal Volume PEEP Peak Inspir Pressure Pressure Support Sodium Potassium Chloride Carbon Dioxide Anion Gap BUN Creatinine Estim Creat Clear Calc Estimated GFR Glucose POC Capillary Glucose 352 H 318 H Calcium Random Vancomycin 19.0 01/15/24 01/15/24 01/15/24 03:56 04:55 05:34 WBC 7.1 RBC 2.55 L Hgb 7.5 L Hct 24.9 L MCV 97.6 MCH 29.4 MCHC 30.1 L RDW 13.7 Plt Count 323 MPV 10.9 H Puncture Site Right brachial ABG pH 7.499 H ABG pCO2 34.4 L ABG pO2 82.3 ABG PO2/FiO2 Ratio 3.92 ABG HCO3 26.2 H ABG O2 Saturation 97.0 ABG O2 Content 10.9 L ABG Base Excess 2.9 A-a Gradient 26.2 Oxyhemoglobin 95.9 Carboxyhemoglobin 0.7 Methemoglobin 0.1 Reduced Hemoglobin 3.3 Total Hemoglobin 8.0 L O2 Delivery Device Ventilator O2 Liters/Min Not Reportable Minute Volume Not Reportable Vent Rate 14 Vent Mode Cmv FiO2 21 Tidal Volume 300 PEEP 5 Peak Inspir Pressure Not Reportable Pressure Support Not Reportable Sodium 143 Potassium 3.4 Chloride 108 H Carbon Dioxide 26 Anion Gap 9 BUN 56 H D Creatinine 2.80 H Estim Creat Clear Calc Estimated GFR Glucose POC Capillary Glucose 335 H Calcium Random Vancomycin 01/15/24 01/15/24 01/15/24 05:34 05:34 05:34 WBC RBC Hgb Hct MCV MCH MCHC RDW Plt Count MPV Puncture Site ABG pH ABG pCO2 ABG pO2 ABG PO2/FiO2 Ratio ABG HCO3 ABG O2 Saturation ABG O2 Content ABG Base Excess A-a Gradient Oxyhemoglobin Carboxyhemoglobin Methemoglobin Reduced Hemoglobin Total Hemoglobin O2 Delivery Device O2 Liters/Min Minute Volume Vent Rate Vent Mode FiO2 Tidal Volume PEEP Peak Inspir Pressure Pressure Support Sodium Potassium Chloride Carbon Dioxide Anion Gap BUN Creatinine 2.80 H Estim Creat Clear Calc 19 19 Estimated GFR 17 L 17 L Glucose 372 H POC Capillary Glucose Calcium 8.4 Random Vancomycin 01/15/24 07:48 WBC RBC Hgb Hct MCV MCH MCHC RDW Plt Count MPV Puncture Site ABG pH ABG pCO2 ABG pO2 ABG PO2/FiO2 Ratio ABG HCO3 ABG O2 Saturation ABG O2 Content ABG Base Excess A-a Gradient Oxyhemoglobin Carboxyhemoglobin Methemoglobin Reduced Hemoglobin Total Hemoglobin O2 Delivery Device O2 Liters/Min Minute Volume Vent Rate Vent Mode FiO2 Tidal Volume PEEP Peak Inspir Pressure Pressure Support Sodium Potassium Chloride Carbon Dioxide Anion Gap BUN Creatinine Estim Creat Clear Calc Estimated GFR Glucose POC Capillary Glucose 383 H Calcium Random Vancomycin Quality VTE Prophylaxis VTE prophylaxis: mechanical ordered and pharmacologic ordered
[2024-01-15 09:31] LABS: Lipase 230 U/L (23-300)
--- NOTE | 2024-01-15 10:02 | P.PNNP_ITS ---
Progress Note: A&P Assessment and Plan (1) Acute kidney failure: Code(s): N17.9 - Acute kidney failure, unspecified Status: Acute Assessment and Plan: * baseline creatinine not known * reportedly has some underlying renal insufficiency/CKD per family * evaluation to date noted: * CT of abd/pelvis and renal ultrasound negative for obstruction * urine eosinophils negative * CPK normal * urine electrolytes non-prerenal * UA suggestive of infection * proteinuria noted complicated by severe acidosis and hyperkalemia on admission * etiology likely multifactorial: * infection/sepsis * hemodynamic instability/shock * SRINIVAS-I + HCTZ use prior to admission * possible prerenal factors * metformin use prior to admission * continued BP medications prior to admission * no improvement in mental status with dialytic interventions * stable electrolytes noted * hold dialysis today (2) Septic shock: Code(s): A41.9 - Sepsis, unspecified organism; R65.21 - Severe sepsis with septic shock Status: Acute Assessment and Plan: * resolved * initially normotensive on presentation * however, worsening hypotension in the ER * s/p aggressive IVF resuscitation * presumed source = aspiration pneumonia + UTI * blood and urine cultures negative -- still with on/off fevers * sputum culture showed yeast * on antibiotics * off pressors * follow hemodynamics (3) Acute respiratory failure: Code(s): J96.00 - Acute respiratory failure, unspecified whether with hypoxia or hypercapnia Status: Acute Assessment and Plan: * due to AMS + emesis and concerns for aspiration and inability to protect airway * intubated and on mechanical ventilation * continue ventilator support - off sedation * weaning as tolerated but mentation is still an issue (4) Acidosis: Code(s): E87.20 - Acidosis, unspecified Status: Acute Assessment and Plan: * resolved (5) Encephalopathy: Code(s): G93.40 - Encephalopathy, unspecified Status: Acute Assessment and Plan: * as noted by presentation of altered mental status, delirium, and confusion * CT of brain shows several strokes * TSH and ammonia levels noted * HD did not help the mental status * still unresponsive (6) Insulin dependent diabetes mellitus: Status: Chronic Assessment and Plan: * follow accu-checks * 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 Subjective Date/time seen: 01/15/24 10:02 Interval history: Follow-up for acute kidney injury/acute renal failure (on chronic kidney disease??). Chart reviewed since last seen -- remains intubated and on mechanical ventilation; no change in mental status despite being off all gtts/infusio ns/sedation; good urine output noted with only minimal change in renal function/creatinine by AM labs; low grade fevers overnight and febrile currently; no other issues/events overnight or earlier this morning. Exam Narrative: General: somewhat ill appearing female intubated and on mechanical ventilation Heart: normal S1 and S2; no rub Lungs: coarse breath sounds bilaterally Abdomen: soft, nontender, nondistended, positive bowel sounds Extremities:no edema Skin: warm and dry Objective Data Vital Signs Vital Signs: Vital Signs Temp Pulse Resp BP Pulse Ox O2 Del Method FiO2 01/15/24 10:00 101.9 F H 85 19 107/56 L 100 01/15/24 08:26 101 H 100 Mechanical Ventilation 01/15/24 08:16 101.5 F H 01/15/24 08:10 98 01/15/24 08:00 101.5 F H 110 H 22 H 167/63 H 100 01/15/24 06:00 100.5 F H 95 18 172/67 H 100 01/15/24 06:00 95 01/15/24 04:00 87 01/15/24 04:51 97 100 Mechanical Ventilation 01/15/24 02:02 105 H 99 Mechanical Ventilation 01/15/24 04:00 21 01/15/24 04:00 Mechanical Ventilation 01/15/24 04:00 100.0 F H 102 H 17 181/78 H 100 01/15/24 04:00 102 H 01/15/24 02:00 100.9 F H 97 21 H 172/82 H 99 01/15/24 02:00 97 01/15/24 01:00 100.5 F H 98 24 H 181/71 H 100 01/15/24 00:00 81 01/14/24 23:11 79 99 Mechanical Ventilation 01/15/24 00:00 100.8 F H 85 21 H 113/82 99 01/15/24 00:00 21 01/15/24 00:00 Mechanical Ventilation 01/14/24 23:20 101.2 F H 01/14/24 22:20 101.0 F H 01/14/24 22:00 101.0 F H 90 21 H 154/56 H 99 01/14/24 22:00 90 01/14/24 20:00 93 01/14/24 20:05 92 100 Mechanical Ventilation 21 01/14/24 20:00 Mechanical Ventilation 21 01/14/24 20:00 21 01/14/24 20:07 93 01/14/24 20:00 100.8 F H 93 18 133/58 L 99 01/14/24 18:00 91 01/14/24 16:00 98 01/14/24 16:00 21 01/14/24 16:00 Mechanical Ventilation 21 01/14/24 18:00 100.5 F H 91 17 144/71 H 100 01/14/24 16:32 95 100 Mechanical Ventilation 21 01/14/24 16:00 100.1 F H 101 H 18 138/60 100 01/14/24 14:00 100.1 F H 89 22 H 143/77 H 100 01/14/24 14:00 89 01/14/24 13:37 89 100 Mechanical Ventilation 21 Intake/Output Intake/Output: Intake & Output 01/12/24 01/13/24 01/14/24 01/15/24 23:59 23:59 23:59 23:59 Intake Total 1766 2760 1565 1090 Output Total 2726 4700 1375 975 Balance -960 -1940 190 115 Meds/Results Medications: Active Medications Generic Name Dose Route Start Last Admin Trade Name Freq PRN Reason Stop Dose Admin Acetaminophen 650 mg 01/10/24 08:02 01/15/24 08:16 Acetaminophen 325 Mg Tablet FEED TUBE 650 mg Q6H PRN Administration Mild Pain (1-3) or Fever Amlodipine Besylate 10 mg 01/11/24 14:05 01/15/24 08:10 Amlodipine Besylate 10 Mg Tablet FEED TUBE 10 mg DAILY CARMELA Administration Aspirin 325 mg 01/12/24 16:00 01/15/24 08:11 Aspirin 325 Mg Tablet FEED TUBE 325 mg DAILY@0800 CARMELA Administration Atorvastatin Calcium 40 mg 01/13/24 09:00 01/15/24 08:10 Atorvastatin 40 Mg Tablet FEED TUBE 40 mg DAILY CARMELA Administration Dextrose 12.5 gm 01/07/24 13:18 Dextrose 50% 25 Gm/50 Ml Syringe IV PUSH PRN PRN Hypoglycemia Protocol Epoetin Dane-epbx 10,000 units 01/12/24 09:20 01/15/24 08:11 Epoetin Dane-Epbx 10,000 Units/Ml Vial SUB-Q 10,000 units MOWEFR@09 CARMELA Administration Glucagon 1 mg 01/07/24 13:18 Glucagon For Inj 1 Mg Vial IM PRN PRN Hypoglycemia Protocol Glucose 15 gm 01/07/24 13:18 Glucose Oral Gel 15 Gm Of Glucse In 37.5 Gm Tube PO PRN PRN Hypoglycemia Protocol Heparin Sodium (Porcine) 5,000 units 01/07/24 21:00 01/15/24 08:11 Heparin Sodium 5,000 Units/Ml Vial SUB-Q 5,000 units Q12HR CARMELA Administration Hydralazine HCl 10 mg 01/12/24 08:00 01/15/24 08:10 Hydralazine 10 Mg Tablet FEED TUBE 10 mg Q6H CARMELA Administration Dextrose 1,000 mls @ 100 mls/hr 01/07/24 13:18 Dextrose 5% 1,000 Ml IVPB PRN PRN Hypoglycemia Protocol Albumin Human 50 mls @ 999 mls/hr 01/07/24 17:11 01/12/24 10:30 Albutein IVPB 02/06/24 17:10 Infused Q10M PRN Infusion HYPOTENSION Levetiracetam 500 mg in 100 mls @ 400 mls/hr 01/07/24 21:00 01/14/24 20:23 Keppra Iv IVPB Infused Q24H CARMELA Infusion Cefepime HCl 1 gm in 50 mls @ 100 mls/hr 01/12/24 12:00 01/15/24 01:30 Maxipime 1 Gm/Ns 50 Ml IVPB Infused Q12H CARMELA Infusion Vancomycin HCl 1,250 mg in 250 mls @ 166.667 mls/hr 01/13/24 11:00 01/15/24 00:56 Vancomycin 1,250 Mg/Ns 250 Ml IVPB Infused Q36H CARMELA Infusion Insulin Aspart 4 - 8 units 01/10/24 07:55 01/15/24 08:09 Insulin Aspart (*Bkc) 100 Units/Ml SUB-Q 8 units Q4H CARMELA Administration Protocol Insulin Glargine 75 units 01/15/24 09:00 01/15/24 08:07 Insulin Glargine (*Bkc) 100 Units/Ml SUB-Q 75 units QAM CARMELA Administration Labetalol HCl 20 mg 01/08/24 14:39 01/15/24 04:00 Labetalol Hcl Inj 100 Mg/20 Ml Vial IV PUSH 20 mg Q4H PRN Administration Hypertension Metoprolol Tartrate 50 mg 01/12/24 09:00 01/15/24 08:10 Metoprolol Tartrate 50 Mg Tab FEED TUBE 50 mg Q12HR CARMELA Administration Multi-Ingred Cream/Lotion/Oil/Oint 1 applic 01/07/24 21:00 01/15/24 08:11 Mineral Oil/White Petrolatum Ointment EACH EYE 1 applic Q12HR CARMELA Administration Pantoprazole Sodium 40 mg 01/07/24 21:00 01/15/24 08:11 Pantoprazole Sodium Iv 40 Mg Vial IV PUSH 40 mg Q12HR CARMELA Administration Perflutren Lipid Microsphere 0 ml 01/12/24 16:00 Perflutren Lipid Microspheres 1.5 Ml Vial Diluted To 10 Ml Total Volume IV PUSH 01/15/24 16:01 ONCE PRN adequate visualization Protocol Radiology Results: ITS Impressions Abdomen/Pelvis CT 01/07/24 16:52 IMPRESSION: No acute abdominopelvic process. Specifically, there is no CT evidence of bowel obstruction. No definite evidence of renal injury, noting that low-grade renal injury as can be difficult to detect without contrast. Renal Ultrasound 01/08/24 10:47 IMPRESSION: 1. Normal kidney sizes. No hydronephrosis. Chest/Abdomen/Pelvis CT 01/12/24 15:08 IMPRESSION: Interval enlargement of the liver, when compared with previous examination. Flattening of the inferior vena cava suggesting severe hypovolemia. Interval development of basilar atelectasis and trace bilateral pleural effusions. No additional findings which represents a change from prior examination performed 01/07/2024. Supportive devices are in good position. Redemonstration of multiple stones within the gallbladder which is not distended. Head CT 01/12/24 15:31 IMPRESSION: 1. Extensive bilateral acute infarcts in the expected distributions of the bila teral middle cerebral arteries. 2. Large distribution of chronic encephalomalacia in the expected distribution of left middle cerebral artery. Abdomen Ultrasound 01/13/24 09:31 IMPRESSION: 1. Cholelithiasis. 2. Normal liver Doppler. Arterial/Peripheral Duplex 10/12/24 09:31 IMPRESSION: 1. Cholelithiasis. 2. Normal liver Doppler. Chest X-Ray 01/15/24 06:22 Impression: Clear lungs. Support tubes, as above. Labs Labs: Laboratory Tests 01/15/24 05:34 01/15/24 05:34
--- NOTE | 2024-01-15 11:12 | PCFNICU ---
ICU Rounding Note: Pt current nutrition is Nepro @ 50 ml/h providing 1980 kcal, 89 g protein, 891 ml free water. Tolerating well. Nutrition recommendation: Continue with current tube feeding orders pending care decision Last recorded weight is 81.3 kg. Bowel Motility: +2 BMs 01/15/24 Labs Reviewed: Hgb 7.5, Hct 24.9, GFR 17, BUN 56, Cre 2.8, Glu 383 Meds Noted: NO sedation. No pressors. Heparin, Keppra, protonix, cefepime, vancomycin, lantus, novolog Skin: No pressure Additional Notes: Remains on vent. Family to decide plan of care Following daily in ICU rounds. Monitoring tube feeding tolerance, labs, weights, output, plan of care Follow up daily in rounds, reassess Monday and Monday.
[2024-01-15 12:04] LABS: Glucose Point of Care 324 mg/dl (65-105)
[2024-01-15] MEDS: POTASSIUM BICARBONATE 25 MEQ TABEF 50 MEQ PO (12:18)
--- NOTE | 2024-01-15 15:26 | P.PNIM_ITS ---
Progress Note: A&P Assessment and Plan (1) Stroke: Code(s): I63.9 - Cerebral infarction, unspecified Status: Acute Assessment and Plan: Patient presented with altered mental status but at that time patient was respiratory failure acute renal failure acidosis and sepsis. CT scan on presentation showed only old stroke and encephalomalacia Since then patient has not woken up despite holding sedation for multiple days and dialysis. 01/[address] was done which showed. 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 These are likely secondary to hypotension Echo did not show any thrombus or ASD Continue aspirin and statin Neurology consult EEG 01/12 - This is an abnormal EEG due to presence of moderate diffuse back ground slowing suggested generalized cephalopathy. (2) Encephalopathy: Code(s): G93.40 - Encephalopathy, unspecified Status: Acute Assessment and Plan: Patient presented with encephalopathy, altered mental status, delirium, confusion -most likely related to uremia, infection, severe acidosis and baseline flow malacia from past stroke -head CT IMPRESSION: 1. No acute intracranial process. 2. 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 3. Additional more diffuse likely age-related mild to moderate diffuse volume loss and mild scattered white matter hypoattenuation consistent with chronic small vessel ischemic disease. TSH and ammonia normal Patient now is off sedation since x 4 days. Still not responsive.. Will continue hold sedatives. EEG as above Patient was dialyzed 01/11 to help with drug removal. Minimal improved Sees encephalopathy likely secondary to strokes. See above. Neurology consulted (3) Acute respiratory failure: Code(s): J96.00 - Acute respiratory failure, unspecified whether with hypoxia or hypercapnia Status: Acute Assessment and Plan: Patient had an episode of emesis in the ER, given her altered mental status encephalopathy, risk of aspiration with impending respiratory failure patient was intubated on 01/06/2025 -currently on CMV mode of ventilation, peep of 5, 50% FiO2 -ABG reviewed and currently on vent rate to 14 and tidal volume to 300 -patient placed on PSV 01/05. Will continue as tolerated -chest x-ray reviewed -sedation is on hold. -weaning will depend on improvement in mental status. (4) Acute kidney failure: Code(s): N17.9 - Acute kidney failure, unspecified Status: Acute Assessment and Plan: On chronic kidney injury, unknown cause, CT of the abdomen and pelvis did not show any hydronephrosis or urinary obstruction -significant lactic acidosis and metabolic acidosis -patient has a history of diabetes, hypertension which is likely the cause of chronic kidney disease -patient on lisinopril hydrochlorothiazide and metformin at home -patient was given a total of 3 L IV fluid bolus, 1 L in the ER and 2 L in the ICU -sodium bicarb IV pushes x4 in the ICU -patient was started on sodium bicarb infusion after discussing with Nephrology -patient was started on hemodialysis and was dialyzed x 3 days -urine output has improved - 01/11 patient was dialyzed again 1 L fluid was removed -continue to monitor urine output, electrolytes and renal function (5) Metabolic acidosis: Code(s): E87.20 - Acidosis, unspecified Status: Acute Assessment and Plan: Patient presented with significant metabolic acidosis and lactic acidosis. This could be combination of septic shock, acute kidney injury but also a possibility of metformin toxicity Patient received hemodialysis and IV bicarb. Acidosis has resolved. Further dialysis per Nephrology Monitor (6) Septic shock: Code(s): A41.9 - Sepsis, unspecified organism; R65.21 - Severe sepsis with septic shock Status: Acute Assessment and Plan: Patient hypotensive on presentation Patient was given IV fluid bolus followed by maintenance IV fluids -lactic acid has improved -Levophed weaned off -off IV fluids -source appears to be UTI. Urine and blood cultures are negative till now -continue Rocephin -discontinue stress dose steroids - 01/10 continues to have fever although other markers of infection are improved as normal WBC. Repeat blood cultures sent and pending Clark catheter change 01/11 Minimal respiratory secretions, sputum cultures growing yeast which is likely a colonization Change Rocephin to cefepime and vancomycin Obtain CT scan 01/12 continues to have low-grade fever but overall fever curve is down.. White count is normal. CT scan of chest and pelvis does not show any area suggestive of infection. Clark catheter was changed. Procalcitonin level is also on the lower side. Continue cefepime and vancomycin at this time. Cultures are pending. (7) Diastolic dysfunction: Code(s): I51.89 - Other ill-defined heart diseases Status: Acute Assessment and Plan: Echo 01/11 Summary 1. Left ventricular systolic function is normal, estimated at 60-65%. 2. There is moderately increased left ventricular wall thickness. 3. Intact interatrial septum visualized by agitated saline imaging. 4. There is mild aortic valve calcification. 5. There is mild aortic valve stenosis with a peak velocity of 190 cm/s,mean gradient of 8 mmHg, and aortic valve area of 1.8 cm2. 6. There is mild tricuspid valve regurgitation. 7. Mild pulmonary hypertension, estimated pulmonary arterial systolicpressure is 46 mmHg. (8) Insulin dependent diabetes mellitus: Status: Chronic Assessment and Plan: Continue sliding scale insulin Accu-Cheks Increased Lantus does (9) Right hemiparesis: Code(s): G81.91 - Hemiplegia, unspecified affecting right dominant side Status: Acute Assessment and Plan: History of left-sided cerebral hemisphere and CVA, residual mild aphasia and right-sided weakness (10) Seizures: Code(s): R56.9 - Unspecified convulsions Status: Acute Assessment and Plan: Patient has a history of seizures, on p.o. Keppra 500 mg p.o. q.12 hours Continue Keppra IV 500 mg IV q.24 (discuss with pharmacist) EEG negative for any seizure-like activity (11) Hypertension: Code(s): I10 - Essential (primary) hypertension Status: Acute Assessment and Plan: Continue metoprolol, hydralazine and amlodipine Plan DNR Subjective Date/time seen: 01/15/24 15:26 Interval history: Remains febrile. Intubated and sedated Review of Systems Review of Systems: ROS unobtainable: Yes unobtainable due to endotracheal tube and unobtainable due to mental status Exam Narrative: General: Intubated and sedated HEENT:? Pupils are equal, sluggishly reactive to light, sclera is clear, ETT in place Neck:? Supple, right IJ dialysis catheter in place Respiratory:? Coarse breath sounds bilaterally, decreased at bases no wheezing, adequate air entry Cardiac:? S1-S2 normal, regular rate and rhythm, Abdomen:? Soft, nontender, nondistended, hypoactive bowel sounds, old midline surgical scar noted Extremities:? Dry skin, decreased pedal pulses, no edema Neuro:? Patient is intubated, off sedation, PERRL, minimal grimace response to sternal painful stimuli. Opens her eyes on stimulation but does not regard examiner or is responsive. No withdrawal to pain in the extremities. Skin:? Dry and flaky skin on lower extremities, skin is warm Psych:? Unable to assess at this time Objective Data Vital Signs Vital Signs: Vital Signs - 24 hr 01/14/24 16:00 01/14/24 16:32 01/14/24 18:00 Temperature 100.1 F H 100.5 F H Pulse Rate 101 H 95 91 Respiratory Rate 18 17 Blood Pressure 138/60 144/71 H Pulse Oximetry 100 100 100 Oxygen Delivery Mechanical Ventilation Fraction of Inspired Oxygen 21 01/14/24 16:00 01/14/24 16:00 01/14/24 16:00 Temperature Pulse Rate 98 Respiratory Rate Blood Pressure Pulse Oximetry Oxygen Delivery Mechanical Ventilation Fraction of Inspired Oxygen 21 21 01/14/24 18:00 01/14/24 20:00 01/14/24 20:07 Temperature 100.8 F H Pulse Rate 91 93 93 Respiratory Rate 18 Blood Pressure 133/58 L Pulse Oximetry 99 Oxygen Delivery Fraction of Inspired Oxygen 01/14/24 20:00 01/14/24 20:00 01/14/24 20:05 Temperature Pulse Rate 92 Respiratory Rate Blood Pressure Pulse Oximetry 100 Oxygen Delivery Mechanical Ventilation Mechanical Ventilation Fraction of Inspired Oxygen 21 21 21 01/14/24 20:00 01/14/24 22:00 01/14/24 22:00 Temperature 101.0 F H Pulse Rate 93 90 90 Respiratory Rate 21 H Blood Pressure 154/56 H Pulse Oximetry 99 Oxygen Delivery Fraction of Inspired Oxygen 01/14/24 22:20 01/14/24 23:20 01/15/24 00:00 Temperature 101.0 F H 101.2 F H Pulse Rate Respiratory Rate Blood Pressure Pulse Oximetry Oxygen Delivery Mechanical Ventilation Fraction of Inspired Oxygen 01/15/24 00:00 01/15/24 00:00 01/14/24 23:11 Temperature 100.8 F H Pulse Rate 85 79 Respiratory Rate 21 H Blood Pressure 113/82 Pulse Oximetry 99 99 Oxygen Delivery Mechanical Ventilation Fraction of Inspired Oxygen 21 01/15/24 00:00 01/15/24 01:00 01/15/24 02:00 Temperature 100.5 F H Pulse Rate 81 98 97 Respiratory Rate 24 H Blood Pressure 181/71 H Pulse Oximetry 100 Oxygen Delivery Fraction of Inspired Oxygen 01/15/24 02:00 01/15/24 04:00 01/15/24 04:00 Temperature 100.9 F H 100.0 F H Pulse Rate 97 102 H 102 H Respiratory Rate 21 H 17 Blood Pressure 172/82 H 181/78 H Pulse Oximetry 99 100 Oxygen Delivery Fraction of Inspired Oxygen 01/15/24 04:00 01/15/24 04:00 01/15/24 02:02 Temperature Pulse Rate 105 H Respiratory Rate Blood Pressure Pulse Oximetry 99 Oxygen Delivery Mechanical Ventilation Mechanical Ventilation Fraction of Inspired Oxygen 21 21 21 01/15/24 04:51 01/15/24 04:00 01/15/24 06:00 Temperature Pulse Rate 97 87 95 Respiratory Rate Blood Pressure Pulse Oximetry 100 Oxygen Delivery Mechanical Ventilation Fraction of Inspired Oxygen 21 01/15/24 06:00 01/15/24 08:00 01/15/24 08:10 Temperature 100.5 F H 101.5 F H Pulse Rate 95 110 H 98 Respiratory Rate 18 22 H Blood Pressure 172/67 H 167/63 H Pulse Oximetry 100 100 Oxygen Delivery Fraction of Inspired Oxygen 01/15/24 08:16 01/15/24 08:26 01/15/24 10:00 Temperature 101.5 F H 101.9 F H Pulse Rate 101 H 85 Respiratory Rate 19 Blood Pressure 107/56 L Pulse Oximetry 100 100 Oxygen Delivery Mechanical Ventilation Fraction of Inspired Oxygen 21 01/15/24 08:00 01/15/24 10:00 01/15/24 08:00 Temperature Pulse Rate 96 86 Respiratory Rate Blood Pressure Pulse Oximetry Oxygen Delivery Mechanical Ventilation Fraction of Inspired Oxygen 21 01/15/24 08:00 01/15/24 11:26 01/15/24 12:00 Temperature 101.4 F H Pulse Rate 93 88 Respiratory Rate 22 H Blood Pressure 108/55 L Pulse Oximetry 100 100 Oxygen Delivery Mechanical Ventilation Fraction of Inspired Oxygen 21 21 01/15/24 12:00 01/15/24 12:00 01/15/24 12:00 Temperature Pulse Rate 88 Respiratory Rate Blood Pressure Pulse Oximetry Oxygen Delivery Mechanical Ventilation Fraction of Inspired Oxygen 21 21 01/15/24 14:00 01/15/24 14:08 01/15/24 14:00 Temperature 101.2 F H Pulse Rate 118 H 106 H 98 Respiratory Rate 24 H Blood Pressure 157/87 H Pulse Oximetry 100 100 Oxygen Delivery Mechanical Ventilation Fraction of Inspired Oxygen 21 Intake/Output Intake/Output: Intake & Output 01/12/24 01/13/24 01/14/24 01/15/24 23:59 23:59 23:59 23:59 Intake Total 1766 2760 1565 1140 Output Total 2726 4700 1375 975 Balance -960 -1940 190 165 Meds/Results Medications: Active Medications Generic Name Dose Route Start Last Admin Trade Name Freq PRN Reason Stop Dose Admin Acetaminophen 650 mg 01/10/24 08:02 01/15/24 14:20 Acetaminophen 325 Mg Tablet FEED TUBE 650 mg Q6H PRN Administration Mild Pain (1-3) or Fever Amlodipine Besylate 10 mg 01/11/24 14:05 01/15/24 08:10 Amlodipine Besylate 10 Mg Tablet FEED TUBE 10 mg DAILY CARMELA Administration Aspirin 325 mg 01/12/24 16:00 01/15/24 08:11 Aspirin 325 Mg Tablet FEED TUBE 325 mg DAILY@0800 CARMELA Administration Atorvastatin Calcium 40 mg 01/13/24 09:00 01/15/24 08:10 Atorvastatin 40 Mg Tablet FEED TUBE 40 mg DAILY CARMELA Administration Dextrose 12.5 gm 01/07/24 13:18 Dextrose 50% 25 Gm/50 Ml Syringe IV PUSH PRN PRN Hypoglycemia Protocol Epoetin Dane-epbx 10,000 units 01/12/24 09:20 01/15/24 08:11 Epoetin Dane-Epbx 10,000 Units/Ml Vial SUB-Q 10,000 units MOWEFR@09 CARMELA Administration Glucagon 1 mg 01/07/24 13:18 Glucagon For Inj 1 Mg Vial IM PRN PRN Hypoglycemia Protocol Glucose 15 gm 01/07/24 13:18 Glucose Oral Gel 15 Gm Of Glucse In 37.5 Gm Tube PO PRN PRN Hypoglycemia Protocol Heparin Sodium (Porcine) 5,000 units 01/07/24 21:00 01/15/24 08:11 Heparin Sodium 5,000 Units/Ml Vial SUB-Q 5,000 units Q12HR CARMELA Administration Hydralazine HCl 10 mg 01/12/24 08:00 01/15/24 14:20 Hydralazine 10 Mg Tablet FEED TUBE 10 mg Q6H CARMELA Administration Dextrose 1,000 mls @ 100 mls/hr 01/07/24 13:18 Dextrose 5% 1,000 Ml IVPB PRN PRN Hypoglycemia Protocol Albumin Human 50 mls @ 999 mls/hr 01/07/24 17:11 01/12/24 10:30 Albutein IVPB 02/06/24 17:10 Infused Q10M PRN Infusion HYPOTENSION Levetiracetam 500 mg in 100 mls @ 400 mls/hr 01/07/24 21:00 01/14/24 20:23 Keppra Iv IVPB Infused Q24H CARMELA Infusion Cefepime HCl 1 gm in 50 mls @ 100 mls/hr 01/12/24 12:00 01/15/24 12:51 Maxipime 1 Gm/Ns 50 Ml IVPB Infused Q12H CARMELA Infusion Vancomycin HCl 1,250 mg in 250 mls @ 166.667 mls/hr 01/13/24 11:00 01/15/24 00:56 Vancomycin 1,250 Mg/Ns 250 Ml IVPB Infused Q36H CARMELA Infusion Insulin Aspart 4 - 8 units 01/10/24 07:55 01/15/24 12:18 Insulin Aspart (*Bkc) 100 Units/Ml SUB-Q 6 units Q4H CARMELA Administration Protocol Insulin Glargine 75 units 01/15/24 09:00 01/15/24 08:07 Insulin Glargine (*Bkc) 100 Units/Ml SUB-Q 75 units QAM CARMELA Administration Labetalol HCl 20 mg 01/08/24 14:39 01/15/24 04:00 Labetalol Hcl Inj 100 Mg/20 Ml Vial IV PUSH 20 mg Q4H PRN Administration Hypertension Metoprolol Tartrate 50 mg 01/12/24 09:00 01/15/24 08:10 Metoprolol Tartrate 50 Mg Tab FEED TUBE 50 mg Q12HR CARMELA Administration Multi-Ingred Cream/Lotion/Oil/Oint 1 applic 01/07/24 21:00 01/15/24 08:11 Mineral Oil/White Petrolatum Ointment EACH EYE 1 applic Q12HR CARMELA Administration Pantoprazole Sodium 40 mg 01/07/24 21:00 01/15/24 08:11 Pantoprazole Sodium Iv 40 Mg Vial IV PUSH 40 mg Q12HR CARMELA Administration Perflutren Lipid Microsphere 0 ml 01/12/24 16:00 Perflutren Lipid Microspheres 1.5 Ml Vial Diluted To 10 Ml Total Volume IV PUSH 01/15/24 16:01 ONCE PRN adequate visualization Protocol Radiology Results: ITS Impressions Abdomen/Pelvis CT 01/07/24 16:52 IMPRESSION: No acute abdominopelvic process. Specifically, there is no CT evidence of bowel obstruction. No definite evidence of renal injury, noting that low-grade renal injury as can be difficult to detect without contrast. Renal Ultrasound 01/08/24 10:47 IMPRESSION: 1. Normal kidney sizes. No hydronephrosis. Chest/Abdomen/Pelvis CT 01/12/24 15:08 IMPRESSION: Interval enlargement of the liver, when compared with previous examination. Flattening of the inferior vena cava suggesting severe hypovolemia. Interval development of basilar atelectasis and trace bilateral pleural effusions. No additional findings which represents a change from prior examination performed 01/07/2024. Supportive devices are in good position. Redemonstration of multiple stones within the gallbladder which is not distended. Head CT 01/12/24 15:31 IMPRESSION: 1. 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 2. Large distribution of chronic encephalomalacia in the expected distribution o f left middle cerebral artery. Abdomen Ultrasound 01/13/24 09:31 IMPRESSION: 1. Cholelithiasis. 2. Normal liver Doppler. Arterial/Peripheral Duplex 01/13/24 09:31 IMPRESSION: 1. Cholelithiasis. 2. Normal liver Doppler. Chest X-Ray 01/15/24 06:22 Impression: Clear lungs. Support tubes, as above. Labs Labs: Laboratory Results - last 24 hr 01/13/24 01/14/24 01/14/24 04:56 16:24 20:19 WBC RBC Hgb Hct MCV MCH MCHC RDW Plt Count MPV Puncture Site ABG pH ABG pCO2 ABG pO2 ABG PO2/FiO2 Ratio ABG HCO3 ABG O2 Saturation ABG O2 Content ABG Base Excess A-a Gradient Oxyhemoglobin Carboxyhemoglobin Methemoglobin Reduced Hemoglobin Total Hemoglobin O2 Delivery Device O2 Liters/Min Minute Volume Not Reportable Vent Rate Vent Mode FiO2 Tidal Volume PEEP Peak Inspir Pressure Not Reportable Pressure Support Not Reportable Sodium Potassium Chloride Carbon Dioxide Anion Gap BUN Creatinine Estim Creat Clear Calc Estimated GFR Glucose POC Capillary Glucose 319 H 352 H Calcium Lipase Random Vancomycin 01/14/24 01/14/24 01/15/24 22:27 23:22 03:56 WBC RBC Hgb Hct MCV MCH MCHC RDW Plt Count MPV Puncture Site ABG pH ABG pCO2 ABG pO2 ABG PO2/FiO2 Ratio ABG HCO3 ABG O2 Saturation ABG O2 Content ABG Base Excess A-a Gradient Oxyhemoglobin Carboxyhemoglobin Methemoglobin Reduced Hemoglobin Total Hemoglobin O2 Delivery Device O2 Liters/Min Minute Volume Vent Rate Vent Mode FiO2 Tidal Volume PEEP Peak Inspir Pressure Pressure Support Sodium Potassium Chloride Carbon Dioxide Anion Gap BUN Creatinine Estim Creat Clear Calc Estimated GFR Glucose POC Capillary Glucose 318 H 335 H Calcium Lipase Random Vancomycin 19.0 01/15/24 01/15/24 01/15/24 04:55 05:34 05:34 WBC 7.1 RBC 2.55 L Hgb 7.5 L Hct 24.9 L MCV 97.6 MCH 29.4 MCHC 30.1 L RDW 13.7 Plt Count 323 MPV 10.9 H Puncture Site Right brachial ABG pH 7.499 H ABG pCO2 34.4 L ABG pO2 82.3 ABG PO2/FiO2 Ratio 3.92 ABG HCO3 26.2 H ABG O2 Saturation 97.0 ABG O2 Content 10.9 L ABG Base Excess 2.9 A-a Gradient 26.2 Oxyhemoglobin 95.9 Carboxyhemoglobin 0.7 Methemoglobin 0.1 Reduced Hemoglobin 3.3 Total Hemoglobin 8.0 L O2 Delivery Device Ventilator O2 Liters/Min Not Reportable Minute Volume Not Reportable Vent Rate 14 Vent Mode Cmv FiO2 21 Tidal Volume 300 PEEP 5 Peak Inspir Pressure Not Reportable Pressure Support Not Reportable Sodium 143 Potassium 3.4 Chloride 108 H Carbon Dioxide 26 Anion Gap 9 BUN 56 H D Creatinine 2.80 H 2.80 H Estim Creat Clear Calc 19 Estimated GFR Glucose POC Capillary Glucose Calcium Lipase Random Vancomycin 01/15/24 01/15/24 01/15/24 05:34 05:34 07:48 WBC RBC Hgb Hct MCV MCH MCHC RDW Plt Count MPV Puncture Site ABG pH ABG pCO2 ABG pO2 ABG PO2/FiO2 Ratio ABG HCO3 ABG O2 Saturation ABG O2 Content ABG Base Excess A-a Gradient Oxyhemoglobin Carboxyhemoglobin Methemoglobin Reduced Hemoglobin Total Hemoglobin O2 Delivery Device O2 Liters/Min Minute Volume Vent Rate Vent Mode FiO2 Tidal Volume PEEP Peak Inspir Pressure Pressure Support Sodium Potassium Chloride Carbon Dioxide Anion Gap BUN Creatinine Estim Creat Clear Calc 19 Estimated GFR 17 L 17 L Glucose 372 H POC Capillary Glucose 383 H Calcium 8.4 Lipase 230 Random Vancomycin 01/15/24 11:56 WBC RBC Hgb Hct MCV MCH MCHC RDW Plt Count MPV Puncture Site ABG pH ABG pCO2 ABG pO2 ABG PO2/FiO2 Ratio ABG HCO3 ABG O2 Saturation ABG O2 Content ABG Base Excess A-a Gradient Oxyhemoglobin Carboxyhemoglobin Methemoglobin Reduced Hemoglobin Total Hemoglobin O2 Delivery Device O2 Liters/Min Minute Volume Vent Rate Vent Mode FiO2 Tidal Volume PEEP Peak Inspir Pressure Pressure Support Sodium Potassium Chloride Carbon Dioxide Anion Gap BUN Creatinine Estim Creat Clear Calc Estimated GFR Glucose POC Capillary Glucose 324 H Calcium Lipase Random Vancomycin
[2024-01-15 16:19] LABS: Glucose Point of Care 323 mg/dl (65-105)
[2024-01-15] MEDS: HEPARIN SODIUM 5,000 UNITS/ML VIAL 5500 UNITS IV PUSH (17:44)
[2024-01-15] MEDS: HEPARIN SOD/D5W 100 UNITS/ML 25,000 UNITS/250 ML BAG 13 UNITS IV CONT (17:46)
[2024-01-15 18:02] LABS: INR 1.2; Partial Thromboplastin Time 30.1 Seconds (22.3-36.8); Prothrombin Time 15.1 Seconds (11.1-14.7)
[2024-01-15 20:27] LABS: Glucose Point of Care 266 mg/dl (65-105)
[2024-01-15] MEDS: levETIRAcetam 500MG/NACL 100ML 500 MG/100 ML BAG 400 MG IVPB (20:30)
[2024-01-16] VITALS (22 sets, daily range): BP systolic 125–165; BP diastolic 58–76; PULSE 81–110; RESP 17–100; TEMP 38.1–38.2; O2SAT 20–100
[2024-01-16] MEDS: INSULIN ASPART (*BKC) 100 UNITS/ML SUB-Q ×6 (00:04→19:56)
[2024-01-16] MEDS: CEFEPIME 1 GM/NS 50 ML 1 GM/50 ML BAG IVPB (00:05)
[2024-01-16 00:10] LABS: Partial Thromboplastin Time 134.4 Seconds (22.3-36.8)
[2024-01-16 00:16] LABS: Glucose Point of Care 281 mg/dl (65-105)
[2024-01-16] MEDS: hydrALAZINE 10 MG TABLET FEED TUBE ×3 (02:04→20:04)
[2024-01-16 04:14] LABS: Glucose Point of Care 269 mg/dl (65-105)
[2024-01-16 07:00] LABS: Hematocrit 25.6 % (37.0-47.0); Hemoglobin 7.8 g/dL (12.0-15.0); Mean Corpuscular HGB Conc 30.5 g/dl (32-36); Mean Corpuscular Volume 98.5 fl (80-100); Mean Platelet Volume 11.4 fl (7.4-10.4); Platelet Count Result 393 k/mm3 (150-375); Red Cell Distribution Width 14.1 % (11.5-14.5); White Blood Count 8.8 K/mm3 (4.5-10.0)
[2024-01-16 07:15] LABS: Alanine Aminotransferase 22 U/L (6-35); Albumin Level 3.1 g/dL (3.5-5.1); Alkaline Phosphatase 93 U/L (38-126); Anion Gap 7 mmol/L (4-12); Aspartate Amino Transferase 37 U/L (14-36); Bilirubin,Total 0.3 mg/dL (0.2-1.3); Blood Urea Nitrogen 66 mg/dL (7-17); Calcium 8.6 mg/dL (8.4-10.2); Carbon Dioxide 29 mmol/L (22-30); Chloride 109 mmol/L (98-107); Estimated CRCL calculation 18 ml/min; Estimated Glomerular Filt Rate 16; Glucose 301 mg/dL (65-110); Phosphorus 2.4 mg/dL (2.5-4.5); Potassium 4.1 mmol/L (3.4-5.0); Sodium 145 mmol/L (137-145)
[2024-01-16 07:17] LABS: Partial Thromboplastin Time 78.5 Seconds (22.3-36.8)
[2024-01-16] MEDS: INSULIN GLARGINE (*BKC) 100 UNITS/ML 55 UNITS SUB-Q ×2 (07:39→20:07)
[2024-01-16] MEDS: ASPIRIN 325 MG TABLET FEED TUBE (07:48)
[2024-01-16 07:53] LABS: Glucose Point of Care 276 mg/dl (65-105)
[2024-01-16] MEDS: MINERAL OIL/WHITE PETROLATUM OINTMENT 1 APPLIC EACH EYE ×2 (08:16→20:06)
[2024-01-16] MEDS: amLODIPine BESYLATE 10 MG TABLET FEED TUBE (08:16)
[2024-01-16] MEDS: ATORVASTATIN 40 MG TABLET FEED TUBE (08:16)
[2024-01-16] MEDS: PANTOPRAZOLE SODIUM IV 40 MG VIAL IV PUSH ×2 (08:16→20:03)
[2024-01-16] MEDS: METOPROLOL TARTRATE 50 MG TAB 100 MG FEED TUBE ×2 (08:16→20:04)
--- NOTE | 2024-01-16 09:41 | P.PNNP_ITS ---
Progress Note: A&P Assessment and Plan (1) Acute kidney failure: Code(s): N17.9 - Acute kidney failure, unspecified Status: Acute Assessment and Plan: * baseline creatinine not known * reportedly has some underlying renal insufficiency/CKD per family * still awaiting outside records * evaluation to date noted: * CT of abd/pelvis and renal ultrasound negative for obstruction * urine eosinophils negative * CPK normal * urine electrolytes non-prerenal * UA suggestive of infection * proteinuria noted complicated by severe acidosis and hyperkalemia on admission * etiology likely multifactorial: * infection/sepsis * hemodynamic instability/shock * SRINIVAS-I + HCTZ use prior to admission * possible prerenal factors * metformin use prior to admission * continued BP medications prior to admission * no improvement in mental status with dialytic interventions * stable electrolytes with reasonable urine output noted * holding dialysis at this time (2) Septic shock: Code(s): A41.9 - Sepsis, unspecified organism; R65.21 - Severe sepsis with septic shock Status: Acute Assessment and Plan: * resolved * initially normotensive on presentation * however, worsening hypotension in the ER * s/p aggressive IVF resuscitation * presumed source = aspiration pneumonia + UTI * blood and urine cultures negative -- still with on/off fevers * sputum culture showed yeast * on antibiotics * off pressors * follow hemodynamics (3) Acute respiratory failure: Code(s): J96.00 - Acute respiratory failure, unspecified whether with hypoxia or hypercapnia Status: Acute Assessment and Plan: * due to AMS + emesis and concerns for aspiration and inability to protect airway * intubated and on mechanical ventilation * continue ventilator support - off sedation * weaning as tolerated but mentation is still an issue (4) Encephalopathy: Code(s): G93.40 - Encephalopathy, unspecified Status: Acute Assessment and Plan: * as noted by presentation of altered mental status, delirium, and confusion * CT of brain shows several strokes * TSH and ammonia levels noted * HD did not help the mental status * still unresponsive (5) Stroke: Code(s): I63.9 - Cerebral infarction, unspecified Status: Acute Assessment and Plan: * as noted by repeat CT of head on 01/11: * Extensive bilateral acute infarcts in the expected distributions of the bilateral middle cerebral arteries. * presumably secondary to hypotension * Echo did not show any thrombus or ASD * remains unresponsive at this time (6) Insulin dependent diabetes mellitus: Status: Chronic Assessment and Plan: * follow accu-checks * glycemic control per hospitalists/author's agent Will continue to follow. Subjective Date/time seen: 01/16/24 09:41 Interval history: Follow-up for acute kidney injury/acute renal failure (on chronic kidney disease??). No real significant change noted at this time; remains unresponsive despite being off all sedation since 01/09/24 with ongoing need for ventilator support; hemodynamically stable; still having low grade fevers at this time; left DVT noted by venous dopplers yesterday; low grade fevers noted; tolerating tube fe eding. Exam Narrative: General: somewhat ill appearing female intubated and on mechanical ventilation Heart: normal S1 and S2; no rub Lungs: coarse breath sounds bilaterally Abdomen: soft, nontender, nondistended, positive bowel sounds Extremities: no cyanosis or clubbing; no edema Skin: warm and intact Objective Data Vital Signs Vital Signs: Vital Signs Temp Pulse Resp BP Pulse Ox O2 Del Method FiO2 01/16/24 08:00 100.7 F H 90 18 125/58 L 99 21 01/16/24 08:00 90 01/16/24 08:16 85 01/16/24 07:27 101 H 100 Mechanical Ventilation 01/16/24 06:00 100.8 F H 101 H 19 135/76 100 01/16/24 06:00 101 H 01/16/24 04:00 21 01/16/24 04:00 100.8 F H 98 17 147/69 H 100 01/16/24 04:00 98 01/16/24 04:00 Mechanical Ventilation 01/16/24 03:52 97 100 Mechanical Ventilation 01/16/24 02:00 100.8 F H 97 19 145/68 H 100 01/16/24 02:00 97 01/16/24 02:16 98 100 Mechanical Ventilation 01/16/24 00:00 100.7 F H 93 18 152/61 H 100 01/16/24 00:00 21 01/16/24 00:00 Mechanical Ventilation 01/16/24 00:00 93 01/15/24 23:00 89 100 Mechanical Ventilation 01/15/24 22:00 100.3 F H 88 19 156/66 H 100 01/15/24 22:00 88 01/15/24 20:05 111 H 100 Mechanical Ventilation 21 01/15/24 20:00 100.7 F H 111 H 20 170/78 H 100 01/15/24 20:00 21 01/15/24 20:00 Mechanical Ventilation 21 01/15/24 20:00 111 H 01/15/24 20:29 111 H 01/15/24 20:29 108 H 01/15/24 18:00 100.9 F H 108 H 22 H 135/64 100 01/15/24 18:00 104 H 01/15/24 16:00 21 01/15/24 16:00 Mechanical Ventilation 21 01/15/24 16:00 108 H 01/15/24 16:00 100.8 F H 106 H 24 H 138/82 100 01/15/24 16:10 112 H 100 Mechanical Ventilation 01/15/24 14:00 98 01/15/24 14:08 106 H 100 Mechanical Ventilation 01/15/24 14:00 101.2 F H 118 H 24 H 157/87 H 100 01/15/24 12:00 21 01/15/24 12:00 Mechanical Ventilation 21 01/15/24 12:00 88 01/15/24 12:00 101.4 F H 88 22 H 108/55 L 100 01/15/24 11:26 93 100 Mechanical Ventilation 01/15/24 10:00 86 01/15/24 10:00 101.9 F H 85 19 107/56 L 100 Intake/Output Intake/Output: Intake & Output 01/13/24 01/14/24 01/15/24 01/16/24 23:59 23:59 23:59 23:59 Intake Total 2760 1565 2254 1191.0 Output Total 4700 1375 1775 800 Balance -1940 190 479 391.0 Meds/Results Medications: Active Medications Generic Name Dose Route Start Last Admin Trade Name Freq PRN Reason Stop Dose Admin Acetaminophen 650 mg 01/10/24 08:02 01/15/24 14:20 Acetaminophen 325 Mg Tablet FEED TUBE 650 mg Q6H PRN Administration Mild Pain (1-3) or Fever Amlodipine Besylate 10 mg 01/11/24 14:05 01/16/24 08:16 Amlodipine Besylate 10 Mg Tablet FEED TUBE 10 mg DAILY CARMELA Administration Aspirin 325 mg 01/12/24 16:00 01/16/24 07:48 Aspirin 325 Mg Tablet FEED TUBE 325 mg DAILY@0800 CARMELA Administration Atorvastatin Calcium 40 mg 01/13/24 09:00 01/16/24 08:16 Atorvastatin 40 Mg Tablet FEED TUBE 40 mg DAILY CARMELA Administration Dextrose 12.5 gm 01/07/24 13:18 Dextrose 50% 25 Gm/50 Ml Syringe IV PUSH PRN PRN Hypoglycemia Protocol Epoetin Dane-epbx 10,000 units 01/12/24 09:20 01/15/24 08:11 Epoetin Dane-Epbx 10,000 Units/Ml Vial SUB-Q 10,000 units MOWEFR@09 CARMELA Administration Glucagon 1 mg 01/07/24 13:18 Glucagon For Inj 1 Mg Vial IM PRN PRN Hypoglycemia Protocol Glucose 15 gm 01/07/24 13:18 Glucose Oral Gel 15 Gm Of Glucse In 37.5 Gm Tube PO PRN PRN Hypoglycemia Protocol Heparin Sodium (Porcine) 5,500 units 01/15/24 17:19 Heparin Sodium 5,000 Units/Ml Vial IV PUSH PRN PRN aPTT less than 55 seconds Heparin Sodium (Porcine) 3,000 units 01/15/24 17:19 Heparin Sodium 5,000 Units/Ml Vial IV PUSH PRN PRN aPTT 55 - 70 seconds Hydralazine HCl 10 mg 01/12/24 08:00 01/16/24 07:48 Hydralazine 10 Mg Tablet FEED TUBE 10 mg Q6H CARMELA Administration Dextrose 1,000 mls @ 100 mls/hr 01/07/24 13:18 Dextrose 5% 1,000 Ml IVPB PRN PRN Hypoglycemia Protocol Albumin Human 50 mls @ 999 mls/hr 01/07/24 17:11 01/12/24 10:30 Albutein IVPB 02/06/24 17:10 Infused Q10M PRN Infusion HYPOTENSION Levetiracetam 500 mg in 100 mls @ 400 mls/hr 01/07/24 21:00 01/15/24 20:45 Keppra Iv IVPB Infused Q24H CARMELA Infusion Cefepime HCl 1 gm in 50 mls @ 100 mls/hr 01/12/24 12:00 01/16/24 00:35 Maxipime 1 Gm/Ns 50 Ml IVPB Infused Q12H CARMELA Infusion Vancomycin HCl 1,250 mg in 250 mls @ 166.667 mls/hr 01/13/24 11:00 01/15/24 00:56 Vancomycin 1,250 Mg/Ns 250 Ml IVPB Infused Q36H CARMELA Infusion Heparin Sodium/Dextrose 25,000 units in 250 mls @ 11 mls/hr 01/15/24 17:45 01/16/24 07:19 Heparin Sodium/D5w 100 Units/Ml IV CONT 1,100 units/hr .[id number] CARMELA 11 mls/hr Titration Protocol 1,100 UNITS/HR Insulin Aspart 4 - 8 units 01/10/24 07:55 01/16/24 07:39 Insulin Aspart (*Bkc) 100 Units/Ml SUB-Q 5 units Q4H CARMELA Administration Protocol Insulin Glargine 55 units 01/16/24 09:00 01/16/24 07:39 Insulin Glargine (*Bkc) 100 Units/Ml SUB-Q 55 units Q12H CARMELA Administration Labetalol HCl 20 mg 01/08/24 14:39 01/15/24 20:29 Labetalol Hcl Inj 100 Mg/20 Ml Vial IV PUSH 20 mg Q4H PRN Administration Hypertension Metoprolol Tartrate 100 mg 01/16/24 09:00 01/16/24 08:16 Metoprolol Tartrate 50 Mg Tab FEED TUBE 100 mg Q12HR CARMELA Administration Multi-Ingred Cream/Lotion/Oil/Oint 1 applic 01/07/24 21:00 01/16/24 08:16 Mineral Oil/White Petrolatum Ointment EACH EYE 1 applic Q12HR CARMELA Administration Pantoprazole Sodium 40 mg 01/07/24 21:00 01/16/24 08:16 Pantoprazole Sodium Iv 40 Mg Vial IV PUSH 40 mg Q12HR CARMELA Administration Radiology Results: ITS Impressions Abdomen/Pelvis CT 01/07/24 16:52 IMPRESSION: No acute abdominopelvic process. Specifically, there is no CT evidence of bowel obstruction. No definite evidence of renal injury, noting that low-grade renal injury as can be difficult to detect without contrast. Renal Ultrasound 01/08/24 10:47 IMPRESSION: 1. Normal kidney sizes. No hydronephrosis. Chest/Abdomen/Pelvis CT 01/12/24 15:08 IMPRESSION: Interval enlargement of the liver, when compared with previous examination. Flattening of the inferior vena cava suggesting severe hypovolemia. Interval development of basilar atelectasis and trace bilateral pleural effusion s. No additional findings which represents a change from prior examination performed 01/07/2024. Supportive devices are in good position. Redemonstration of multiple stones within the gallbladder which is not distended. Head CT 01/12/24 15:31 IMPRESSION: 1. 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 2. Large distribution of chronic encephalomalacia in the expected distribution of left middle cerebral artery. Abdomen Ultrasound 01/13/24 09:31 IMPRESSION: 1. Cholelithiasis. 2. Normal liver Doppler. Arterial/Peripheral Duplex 01/13/24 09:31 IMPRESSION: 1. Cholelithiasis. 2. Normal liver Doppler. Venous Doppler Study 01/15/24 17:14 IMPRESSION: 1. Deep vein thrombosis involving left common femoral vein. ADDENDUM: 01/15/24 [id number] I called this result to Apurva Mclean. Abdomen X-Ray 01/16/24 06:03 Impression: NG tube in satisfactory position. Chest X-Ray 01/16/24 06:20 Impression: Probable focal left lower lobe atelectasis or possibly focal pneumonia. Stable support tubes. Labs Labs: Laboratory Tests 01/16/24 06:56 01/16/24 06:56 Calcium 8.6 Phosphorus 2.4 L Magnesium 2.0 Total Bilirubin 0.3 AST 37 H ALT 22 Alkaline Phosphatase 93 Total Protein 7.0 Albumin 3.1 L
[2024-01-16 10:28] LABS: Vancomycin Trough 24.3 ug/mL (10.0-20.0)
--- NOTE | 2024-01-16 11:32 | PM.IMPN ---
Progress Note: A&P Assessment and Plan (1) Stroke: Code(s): I63.9 - Cerebral infarction, unspecified Status: Acute Plan Acute bilateral stroke Encephalopathy secondary to stroke -patient's mentation is still very poor, unresponsive, continue IMV -brain MRI consistent with bilateral extensive infarcts -appreciate critical care consultation for ventilator management, patient on 21% O2 -EEG 01/12: Abnormal with moderate diffuse background slowing -full-dose aspirin, statin -seizure prophylaxis: Keppra 500 mg daily -stopping vancomycin and cefepime. No leukocytosis, afebrile Acute DVT LLE -DVT found in left common femoral vein -on heparin drip Septic shock resolved, suspected to secondary to aspiration pneumonia or UTI -completed antibiotics cefepime and vancomycin -off vasopressors -blood cultures urine culture negative -sputum cultures positive for yeast Acute on chronic renal failure -appreciate Nephrology consultation -may be secondary to hemodynamic insufficiency, ATN, was hypotensive requiring vasopressors -improvement of renal function next -patient had temporary dialysis, now making urine, continue Clark catheter for strict I&O and while on IMV -despite clearing uremia patient is still having encephalopathy Chronic conditions -essential hypertension: Amlodipine, hydralazine, metoprolol tartrate -anemia of CKD: On EPO. Hemoglobin 7.8, continue monitor -type 2 diabetes insulin: On sliding scale insulin, glargine 55 units q.12 hours, hypoglycemia protocol, Accu-Cheks q6hr -CKD4/5, GFR 16 Diet: tube feeding DVT prophylaxis: On heparin drip GI prophylaxis: B.i.d. Protonix Code status: DNR Disposition: Continue monitoring in ICU on ventilator Time Spent With Patient Time: 35 minutes Subjective Date/time seen: 01/16/24 11:32 Interval history: Seen examined. She is intubated. She is not on any sedation. Patient is on heparin drip for DVT. She appears to have brain stem reflexes intact. Review of Systems Review of Systems: Unable to obtain, patient intubated Exam Narrative: - GENERAL: Elderly woman intubated - HENT: Moist mucous membranes. ET tube - LUNGS: Clear to auscultation bilaterally, no wheezing or rales - CARDIOVASCULAR: Regular rate and rhythm. - ABDOMEN: Soft, non-tender and non-distended. No palpable masses. - EXTREMITIES: No edema. Peripheral pulses 2+. Non-tender. - NEUROLOGIC: gag reflex intact, not arousable - PSYCHIATRIC: Unable to obtain - SKIN: No rashes or lesions. Warm. - LYMPH: No cervical lymphadenopathy. Objective Data Vital Signs Vital Signs: Vital Signs - 24 hr 01/15/24 12:00 01/15/24 12:00 01/15/24 12:00 Temperature 38.6 C H Pulse Rate 88 88 Respiratory Rate 22 H Blood Pressure 108/55 L Pulse Oximetry 100 Oxygen Delivery Mechanical Ventilation Fraction of Inspired Oxygen 21 01/15/24 12:00 01/15/24 14:00 01/15/24 14:08 Temperature 38.4 C H Pulse Rate 118 H 106 H Respiratory Rate 24 H Blood Pressure 157/87 H Pulse Oximetry 100 100 Oxygen Delivery Mechanical Ventilation Fraction of Inspired Oxygen 21 21 01/15/24 14:00 01/15/24 16:10 01/15/24 16:00 Temperature 38.2 C H Pulse Rate 98 112 H 106 H Respiratory Rate 24 H Blood Pressure 138/82 Pulse Oximetry 100 100 Oxygen Delivery Mechanical Ventilation Fraction of Inspired Oxygen 21 01/15/24 16:00 01/15/24 16:00 01/15/24 16:00 Temperature Pulse Rate 108 H Respiratory Rate Blood Pressure Pulse Oximetry Oxygen Delivery Mechanical Ventilation Fraction of Inspired Oxygen 21 21 01/15/24 18:00 01/15/24 18:00 01/15/24 20:29 Temperature 38.3 C H Pulse Rate 104 H 108 H 108 H Respiratory Rate 22 H Blood Pressure 135/64 Pulse Oximetry 100 Oxygen Delivery Fraction of Inspired Oxygen 01/15/24 20:29 01/15/24 20:00 01/15/24 20:00 Temperature Pulse Rate 111 H 111 H Respiratory Rate Blood Pressure Pulse Oximetry Oxygen Delivery Mechanical Ventilation Fraction of Inspired Oxygen 21 01/15/24 20:00 01/15/24 20:00 01/15/24 20:05 Temperature 38.2 C H Pulse Rate 111 H 111 H Respiratory Rate 20 Blood Pressure 170/78 H Pulse Oximetry 100 100 Oxygen Delivery Mechanical Ventilation Fraction of Inspired Oxygen 21 21 01/15/24 22:00 01/15/24 22:00 01/15/24 23:00 Temperature 37.9 C H Pulse Rate 88 88 89 Respiratory Rate 19 Blood Pressure 156/66 H Pulse Oximetry 100 100 Oxygen Delivery Mechanical Ventilation Fraction of Inspired Oxygen 21 01/16/24 00:00 01/16/24 00:00 01/16/24 00:00 Temperature Pulse Rate 93 Respiratory Rate Blood Pressure Pulse Oximetry Oxygen Delivery Mechanical Ventilation Fraction of Inspired Oxygen 21 21 01/16/24 00:00 01/16/24 02:16 01/16/24 02:00 Temperature 38.2 C H Pulse Rate 93 98 97 Respiratory Rate 18 Blood Pressure 152/61 H Pulse Oximetry 100 100 Oxygen Delivery Mechanical Ventilation Fraction of Inspired Oxygen 21 01/16/24 02:00 01/16/24 03:52 01/16/24 04:00 Temperature 38.2 C H Pulse Rate 97 97 Respiratory Rate 19 Blood Pressure 145/68 H Pulse Oximetry 100 100 Oxygen Delivery Mechanical Ventilation Mechanical Ventilation Fraction of Inspired Oxygen 21 21 01/16/24 04:00 01/16/24 04:00 01/16/24 04:00 Temperature 38.2 C H Pulse Rate 98 98 Respiratory Rate 17 Blood Pressure 147/69 H Pulse Oximetry 100 Oxygen Delivery Fraction of Inspired Oxygen 21 01/16/24 06:00 01/16/24 06:00 01/16/24 07:27 Temperature 38.2 C H Pulse Rate 101 H 101 H 101 H Respiratory Rate 19 Blood Pressure 135/76 Pulse Oximetry 100 100 Oxygen Delivery Mechanical Ventilation Fraction of Inspired Oxygen 21 01/16/24 08:16 01/16/24 08:00 01/16/24 08:00 Temperature 38.2 C H Pulse Rate 85 90 90 Respiratory Rate 18 Blood Pressure 125/58 L Pulse Oximetry 99 Oxygen Delivery Fraction of Inspired Oxygen 01/16/24 08:00 Temperature Pulse Rate Respiratory Rate Blood Pressure Pulse Oximetry Oxygen Delivery Fraction of Inspired Oxygen 21 Intake/Output Intake/Output: Intake & Output 01/13/24 01/14/24 01/15/24 01/16/24 23:59 23:59 23:59 23:59 Intake Total 2760 1565 2254 1191.0 Output Total 4700 1375 1775 800 Balance -1940 190 479 391.0 Meds/Results Medications: Active Medications Generic Name Dose Route Start Last Admin Trade Name Freq PRN Reason Stop Dose Admin Acetaminophen 650 mg 01/10/24 08:02 01/15/24 14:20 Acetaminophen 325 Mg Tablet FEED TUBE 650 mg Q6H PRN Administration Mild Pain (1-3) or Fever Amlodipine Besylate 10 mg 01/11/24 14:05 01/16/24 08:16 Amlodipine Besylate 10 Mg Tablet FEED TUBE 10 mg DAILY CARMELA Administration Aspirin 325 mg 01/12/24 16:00 01/16/24 07:48 Aspirin 325 Mg Tablet FEED TUBE 325 mg DAILY@0800 CARMELA Administration Atorvastatin Calcium 40 mg 01/13/24 09:00 01/16/24 08:16 Atorvastatin 40 Mg Tablet FEED TUBE 40 mg DAILY CARMELA Administration Dextrose 12.5 gm 01/07/24 13:18 Dextrose 50% 25 Gm/50 Ml Syringe IV PUSH PRN PRN Hypoglycemia Protocol Epoetin Dane-epbx 10,000 units 01/12/24 09:20 01/15/24 08:11 Epoetin Dane-Epbx 10,000 Units/Ml Vial SUB-Q 10,000 units MOWEFR@09 CARMELA Administration Glucagon 1 mg 01/07/24 13:18 Glucagon For Inj 1 Mg Vial IM PRN PRN Hypoglycemia Protocol Glucose 15 gm 01/07/24 13:18 Glucose Oral Gel 15 Gm Of Glucse In 37.5 Gm Tube PO PRN PRN Hypoglycemia Protocol Heparin Sodium (Porcine) 5,500 units 01/15/24 17:19 Heparin Sodium 5,000 Units/Ml Vial IV PUSH PRN PRN aPTT less than 55 seconds Heparin Sodium (Porcine) 3,000 units 01/15/24 17:19 Heparin Sodium 5,000 Units/Ml Vial IV PUSH PRN PRN aPTT 55 - 70 seconds Hydralazine HCl 10 mg 01/12/24 08:00 01/16/24 07:48 Hydralazine 10 Mg Tablet FEED TUBE 10 mg Q6H CARMELA Administration Dextrose 1,000 mls @ 100 mls/hr 01/07/24 13:18 Dextrose 5% 1,000 Ml IVPB PRN PRN Hypoglycemia Protocol Albumin Human 50 mls @ 999 mls/hr 01/07/24 17:11 01/12/24 10:30 Albutein IVPB 02/06/24 17:10 Infused Q10M PRN Infusion HYPOTENSION Levetiracetam 500 mg in 100 mls @ 400 mls/hr 01/07/24 21:00 01/15/24 20:45 Keppra Iv IVPB Infused Q24H CARMELA Infusion Heparin Sodium/Dextrose 25,000 units in 250 mls @ 11 mls/hr 01/15/24 17:45 01/16/24 07:19 Heparin Sodium/D5w 100 Units/Ml IV CONT 1,100 units/hr .[id number] CARMELA 11 mls/hr Titration Protocol 1,100 UNITS/HR Insulin Aspart 4 - 8 units 01/10/24 07:55 01/16/24 11:27 Insulin Aspart (*Bkc) 100 Units/Ml SUB-Q 5 units Q4H CARMELA Administration Protocol Insulin Glargine 55 units 01/16/24 09:00 01/16/24 07:39 Insulin Glargine (*Bkc) 100 Units/Ml SUB-Q 55 units Q12H CARMELA Administration Labetalol HCl 20 mg 01/08/24 14:39 01/15/24 20:29 Labetalol Hcl Inj 100 Mg/20 Ml Vial IV PUSH 20 mg Q4H PRN Administration Hypertension Metoprolol Tartrate 100 mg 01/16/24 09:00 01/16/24 08:16 Metoprolol Tartrate 50 Mg Tab FEED TUBE 100 mg Q12HR CARMELA Administration Multi-Ingred Cream/Lotion/Oil/Oint 1 applic 01/07/24 21:00 01/16/24 08:16 Mineral Oil/White Petrolatum Ointment EACH EYE 1 applic Q12HR CARMELA Administration Pantoprazole Sodium 40 mg 01/07/24 21:00 01/16/24 08:16 Pantoprazole Sodium Iv 40 Mg Vial IV PUSH 40 mg Q12HR CARMELA Administration Radiology Results: ITS Impressions Abdomen/Pelvis CT 01/07/24 16:52 IMPRESSION: No acute abdominopelvic process. Specifically, there is no CT evidence of bowel obstruction. No definite evidence of renal injury, noting that low-grade renal injury as can be difficult to detect without contrast. Renal Ultrasound 01/08/24 10:47 IMPRESSION: 1. Normal kidney sizes. No hydronephrosis. Chest/Abdomen/Pelvis CT 01/12/24 15:08 IMPRESSION: Interval enlargement of the liver, when compared with previous examination. Flattening of the inferior vena cava suggesting severe hypovolemia. Interval development of basilar atelectasis and trace bilateral pleural effusions. No additional findings which represents a change from prior examination performed 01/07/2024. Supportive devices are in good position. Redemonstration of multiple stones within the gallbladder which is not distended. Head CT 01/12/24 15:31 IMPRESSION: 1. 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 2. Large distribution of chronic encephalomalacia in the expected distribution of left middle cerebral artery. Abdomen Ultrasound 01/13/24 09:31 IMPRESSION: 1. Cholelithiasis. 2. Normal liver Doppler. Arterial/Peripheral Duplex 01/13/24 09:31 IMPRESSION: 1. Cholelithiasis. 2. Normal liver Doppler. Venous Doppler Study 01/15/24 17:14 IMPRESSION: 1. Deep vein thrombosis involving left common femoral vein. ADDENDUM: 01/15/24 2020 I called this result to Apurva Mclean. Abdomen X-Ray 01/16/24 06:03 Impression: NG tube in satisfactory position. Chest X-Ray 01/16/24 06:20 Impression: Probable focal left lower lobe atelectasis or possibly focal pneumonia. Stable support tubes. Labs Labs: Laboratory Results - last 24 hr 01/15/24 01/15/24 01/15/24 11:56 16:15 17:39 WBC RBC Hgb Hct MCV MCH MCHC RDW Plt Count MPV PT 15.1 H INR 1.2 APTT 30.1 Sodium Potassium Chloride Carbon Dioxide Anion Gap BUN Creatinine Estim Creat Clear Calc Estimated GFR Glucose POC Capillary Glucose 324 H 323 H Calcium Phosphorus Magnesium Total Bilirubin AST ALT Alkaline Phosphatase Total Protein Albumin Vancomycin Trough 01/15/24 01/15/24 01/16/24 20:12 23:51 00:04 WBC RBC Hgb Hct MCV MCH MCHC RDW Plt Count MPV PT INR APTT 134.4 H Sodium Potassium Chloride Carbon Dioxide Anion Gap BUN Creatinine Estim Creat Clear Calc Estimated GFR Glucose POC Capillary Glucose 266 H 281 H Calcium Phosphorus Magnesium Total Bilirubin AST ALT Alkaline Phosphatase Total Protein Albumin Vancomycin Trough 01/16/24 01/16/24 01/16/24 03:58 06:56 07:38 WBC 8.8 RBC 2.60 L Hgb 7.8 L Hct 25.6 L MCV 98.5 MCH 30.0 MCHC 30.5 L RDW 14.1 Plt Count 393 H MPV 11.4 H PT INR APTT 78.5 H Sodium 145 Potassium 4.1 Chloride 109 H Carbon Dioxide 29 Anion Gap 7 BUN 66 H D Creatinine 2.90 H Estim Creat Clear Calc 18 Estimated GFR 16 L Glucose 301 H POC Capillary Glucose 269 H 276 H Calcium 8.6 Phosphorus 2.4 L Magnesium 2.0 Total Bilirubin 0.3 AST 37 H ALT 22 Alkaline Phosphatase 93 Total Protein 7.0 Albumin 3.1 L Vancomycin Trough 01/16/24 09:01 WBC RBC Hgb Hct MCV MCH MCHC RDW Plt Count MPV PT INR APTT Sodium Potassium Chloride Carbon Dioxide Anion Gap BUN Creatinine Estim Creat Clear Calc Estimated GFR Glucose POC Capillary Glucose Calcium Phosphorus Magnesium Total Bilirubin AST ALT Alkaline Phosphatase Total Protein Albumin Vancomycin Trough 24.3 H Hospitalist MIPS Advance Care Plan I have confirmed that the patient's Advanced Care Plan is present, code status is documented, or surrogate decision maker is listed in patient medical record.: Yes Medication Reconciliation I have utilized all available resources to obtain, update and review the patients current medications (includes all prescriptions, OTC, herbals, cannabis, and nutritional supplements).: Yes
[2024-01-16 11:34] LABS: Glucose Point of Care 282 mg/dl (65-105)
--- NOTE | 2024-01-16 11:52 | P.PNINT_ITS ---
Progress Note: A&P Assessment and Plan (1) Stroke: Code(s): I63.9 - Cerebral infarction, unspecified Status: Acute Assessment and Plan: Patient presented with altered mental status but at that time patient was respiratory failure acute renal failure acidosis and sepsis. CT scan on presentation showed only old stroke and encephalomalacia Since then patient has not woken up despite holding sedation for multiple days and dialysis. 01/[address] was done which showed. 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 These are likely secondary to hypotension Echo did not show any thrombus or ASD Continue aspirin and statin Neurology following EEG 01/12 - This is an abnormal EEG due to presence of moderate diffuse background slowing suggested generalized cephalopathy. No significant change in neurological status (2) Encephalopathy: Code(s): G93.40 - Encephalopathy, unspecified Status: Acute Assessment and Plan: Patient presented with encephalopathy, altered mental status, delirium, confusion -most likely related to uremia, infection, severe acidosis and baseline flow malacia from past stroke -patient has been off sedation since 01/09/2024, has not woken up CT brain IMPRESSION: 1. No acute intracranial process. 2. 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 3. Additional more diffuse likely age-related mild to moderate diffuse volume loss and mild scattered white matter hypoattenuation consistent with chronic small vessel ischemic disease. TSH and ammonia normal Patient has been off sedation since 01/09/2024. Still not responsive.. Will continue hold sedatives. EEG as above Patient was dialyzed 01/11 to help with drug removal. Minimal improved Encephalopathy likely secondary to strokes. See above. Neurology following (3) Acute respiratory failure: Code(s): J96.00 - Acute respiratory failure, unspecified whether with hypoxia or hypercapnia Status: Acute Assessment and Plan: Patient had an episode of emesis in the ER, given her altered mental status encephalopathy, risk of aspiration with impending respiratory failure patient was intubated on 01/06/2025 -currently on CMV mode of ventilation, peep of 5, 21% FiO2 -ABG reviewed and currently on vent rate to 14 and tidal volume to 300 -patient placed on PSV 01/05. Patient was switched back to CMV after some time due to multiple apnea events -chest x-ray reviewed -sedation is on hold. -weaning will depend on improvement in mental status. (4) Acute kidney failure: Code(s): N17.9 - Acute kidney failure, unspecified Status: Acute Assessment and Plan: On chronic kidney injury, unknown cause, CT of the abdomen and pelvis did not show any hydronephrosis or urinary obstruction -significant lactic acidosis and metabolic acidosis -patient has a history of diabetes, hypertension which is likely the cause of chronic kidney disease -patient on lisinopril hydrochlorothiazide and metformin at home -patient was given a total of 3 L IV fluid bolus, 1 L in the ER and 2 L in the ICU -sodium bicarb IV pushes x4 in the ICU -patient was started on sodium bicarb infusion after discussing with Nephrology, which her was discontinued once hemodialysis was started -patient was started on hemodialysis and was dialyzed x 3 days -patient continues to have decent urine output - 01/11 patient was dialyzed again 1 L fluid was removed -continue to monitor urine output, electrolytes and renal function (5) Metabolic acidosis: Code(s): E87.20 - Acidosis, unspecified Status: Acute Assessment and Plan: RESOLVED Patient presented with significant metabolic acidosis and lactic acidosis. This could be combination of septic shock, acute kidney injury but also a possibility of metformin toxicity Patient received hemodialysis and IV bicarb. Acidosis has resolved. Further dialysis per Nephrology Monitor (6) Septic shock: Code(s): A41.9 - Sepsis, unspecified organism; R65.21 - Severe sepsis with septic shock Status: Acute Assessment and Plan: Patient hypotensive on presentation Patient was given IV fluid bolus followed by maintenance IV fluids -lactic acid has improved -Levophed weaned off -off IV fluids -source appears to be UTI. Urine and blood cultures are negative till now, STATUS POST CEFTRIAXONE -status post stress dose steroids - 01/10 continues to have fever although other markers of infection are improved as normal WBC. 01/10: Repeat blood cultures are negative x2 Clark catheter change 01/11 Minimal respiratory secretions, sputum cultures growing yeast which is likely a colonization Change Rocephin to cefepime and vancomycin 01/14: Patient continues to have low-grade fever but overall fever curve is down.. White count is normal. CT scan of chest and pelvis does not show any area suggestive of infection. Clark catheter was changed. Procalcitonin level is also on the lower side. Continue cefepime but will discontinue vancomycin at this time. Cultures are negative till now. -lipase was within normal limits -01/15/2024: lower extremity venous Dopplers: Left common femoral vein DVT -01/14: patient was started on heparin infusion (7) Diastolic dysfunction: Code(s): I51.89 - Other ill-defined heart diseases Status: Acute Assessment and Plan: Echo 01/11 Summary 1. Left ventricular systolic function is normal, estimated at 60-65%. 2. There is moderately increased left ventricular wall thickness. 3. Intact interatrial septum visualized by agitated saline imaging. 4. There is mild aortic valve calcification. 5. There is mild aortic valve stenosis with a peak velocity of 190 cm/s,mean gradient of 8 mmHg, and aortic valve area of 1.8 cm2. 6. There is mild tricuspid valve regurgitation. 7. Mild pulmonary hypertension, estimated pulmonary arterial systolicpressure is 46 mmHg. (8) Insulin dependent diabetes mellitus: Status: Chronic Assessment and Plan: Continue sliding scale insulin Accu-Cheks Lantus was increased and will dose b.i.d. (9) Right hemiparesis: Code(s): G81.91 - Hemiplegia, unspecified affecting right dominant side Status: Acute Assessment and Plan: History of left-sided cerebral hemisphere and CVA, residual mild aphasia and right-sided weakness (10) Seizures: Code(s): R56.9 - Unspecified convulsions Status: Acute Assessment and Plan: Patient has a history of seizures, on p.o. Keppra 500 mg p.o. q.12 hours Continue Keppra IV 500 mg IV q.24 (discuss with pharmacist) EEG negative for any seizure-like activity (11) Hypertension: Code(s): I10 - Essential (primary) hypertension Status: Acute Assessment and Plan: Continue metoprolol, hydralazine and amlodipine Plan DVT prophylaxis: Heparin insulin Stress ulcer prophylaxis: Protonix Nutrition: Continue tube feeds Code Status: DNR Critical Care Time Spent: 34 minutes Will update family Due to a high probability of clinically significant, life threatening deterioration, the patient required my highest level of preparedness to intervene emergently and I personally spent this critical care time directly and personally managing the patient. This critical care time included obtaining a history; examining the patient; pulse oximetry; ordering and review of studies; arranging urgent treatment with development of a management plan; evaluation of patient's response to treatment; frequent reassessment; and discussions with other providers. It was exclusive of separately billable procedures and treating other patients and teaching time. Please see Assessment and Plan section and the rest of the note for further information on patient assessment and treatment This dictation may have been done utilizing a voice recognition system. Attempts have been made to correct errors. However, there may be uncorrected grammatical, spelling, and recognitions errors present. Subjective Date/time seen: 01/16/24 11:52 Interval history: Reason for consult: Altered mental status, acute respiratory failure, severe metabolic acidosis, multiple strokes, DVT 01/16/2024: Patient seen and examined the ICU, remains intubated, on CMV mode of ventilation, peep of 5, 21% FiO2. Sedation has been off since 01/09/2024. Patient does not open eyes to name follows simple commands. Urine output has be en adequate, patient continues to have low-grade fevers with a T-max of 100.9?, remains hyperglycemic, tolerating tube feeds Review of Systems Review of Systems: ROS unobtainable: Yes unobtainable due to endotracheal tube, unobtainable due to medical condition and unobtainable due to mental stat us Exam Narrative: General: Intubated and sedated HEENT:? Pupils are equal, sluggishly reactive to light, sclera is clear, ETT in place Neck:? Supple, right IJ dialysis catheter in place Respiratory:? Coarse breath sounds bilaterally, decreased at bases no wheezing, adequate air entry Cardiac:? S1-S2 normal, regular rate and rhythm, Abdomen:? Soft, nontender, nondistended, hypoactive bowel sounds, old midline surgical scar noted Extremities:? Dry skin, decreased pedal pulses, no edema Neuro:? Patient is intubated, off sedation, PERRL, minimal grimace response to sternal painful stimuli. Opens her eyes on stimulation but does not regard examiner or is responsive. No withdrawal to pain in the extremities. Skin:? Dry and flaky skin on lower extremities, skin is warm Psych:? Unable to assess at this time Objective Data Vital Signs Vital Signs: Vital Signs - 24 hr 01/15/24 12:00 01/15/24 12:00 01/15/24 12:00 Temperature 101.4 F H Pulse Rate 88 88 Respiratory Rate 22 H Blood Pressure 108/55 L Pulse Oximetry 100 Oxygen Delivery Mechanical Ventilation Fraction of Inspired Oxygen 21 01/15/24 12:00 01/15/24 14:00 01/15/24 14:08 Temperature 101.2 F H Pulse Rate 118 H 106 H Respiratory Rate 24 H Blood Pressure 157/87 H Pulse Oximetry 100 100 Oxygen Delivery Mechanical Ventilation Fraction of Inspired Oxygen 21 21 01/15/24 14:00 01/15/24 16:10 01/15/24 16:00 Temperature 100.8 F H Pulse Rate 98 112 H 106 H Respiratory Rate 24 H Blood Pressure 138/82 Pulse Oximetry 100 100 Oxygen Delivery Mechanical Ventilation Fraction of Inspired Oxygen 21 01/15/24 16:00 01/15/24 16:00 01/15/24 16:00 Temperature Pulse Rate 108 H Respiratory Rate Blood Pressure Pulse Oximetry Oxygen Delivery Mechanical Ventilation Fraction of Inspired Oxygen 21 21 01/15/24 18:00 01/15/24 18:00 01/15/24 20:29 Temperature 100.9 F H Pulse Rate 104 H 108 H 108 H Respiratory Rate 22 H Blood Pressure 135/64 Pulse Oximetry 100 Oxygen Delivery Fraction of Inspired Oxygen 01/15/24 20:29 01/15/24 20:00 01/15/24 20:00 Temperature Pulse Rate 111 H 111 H Respiratory Rate Blood Pressure Pulse Oximetry Oxygen Delivery Mechanical Ventilation Fraction of Inspired Oxygen 21 01/15/24 20:00 01/15/24 20:00 01/15/24 20:05 Temperature 100.7 F H Pulse Rate 111 H 111 H Respiratory Rate 20 Blood Pressure 170/78 H Pulse Oximetry 100 100 Oxygen Delivery Mechanical Ventilation Fraction of Inspired Oxygen 21 21 01/15/24 22:00 01/15/24 22:00 01/15/24 23:00 Temperature 100.3 F H Pulse Rate 88 88 89 Respiratory Rate 19 Blood Pressure 156/66 H Pulse Oximetry 100 100 Oxygen Delivery Mechanical Ventilation Fraction of Inspired Oxygen 21 01/16/24 00:00 01/16/24 00:00 01/16/24 00:00 Temperature Pulse Rate 93 Respiratory Rate Blood Pressure Pulse Oximetry Oxygen Delivery Mechanical Ventilation Fraction of Inspired Oxygen 21 21 01/16/24 00:00 01/16/24 02:16 01/16/24 02:00 Temperature 100.7 F H Pulse Rate 93 98 97 Respiratory Rate 18 Blood Pressure 152/61 H Pulse Oximetry 100 100 Oxygen Delivery Mechanical Ventilation Fraction of Inspired Oxygen 21 01/16/24 02:00 01/16/24 03:52 01/16/24 04:00 Temperature 100.8 F H Pulse Rate 97 97 Respiratory Rate 19 Blood Pressure 145/68 H Pulse Oximetry 100 100 Oxygen Delivery Mechanical Ventilation Mechanical Ventilation Fraction of Inspired Oxygen 21 21 01/16/24 04:00 01/16/24 04:00 01/16/24 04:00 Temperature 100.8 F H Pulse Rate 98 98 Respiratory Rate 17 Blood Pressure 147/69 H Pulse Oximetry 100 Oxygen Delivery Fraction of Inspired Oxygen 21 01/16/24 06:00 01/16/24 06:00 01/16/24 07:27 Temperature 100.8 F H Pulse Rate 101 H 101 H 101 H Respiratory Rate 19 Blood Pressure 135/76 Pulse Oximetry 100 100 Oxygen Delivery Mechanical Ventilation Fraction of Inspired Oxygen 21 01/16/24 08:16 01/16/24 08:00 01/16/24 08:00 Temperature 100.7 F H Pulse Rate 85 90 90 Respiratory Rate 18 Blood Pressure 125/58 L Pulse Oximetry 99 Oxygen Delivery Fraction of Inspired Oxygen 01/16/24 08:00 01/16/24 11:31 01/16/24 10:00 Temperature Pulse Rate 95 88 Respiratory Rate Blood Pressure Pulse Oximetry 100 Oxygen Delivery Mechanical Ventilation Fraction of Inspired Oxygen 21 21 01/16/24 10:00 Temperature 100.7 F H Pulse Rate 88 Respiratory Rate 21 H Blood Pressure 145/66 H Pulse Oximetry 100 Oxygen Delivery Fraction of Inspired Oxygen Intake/Output Intake/Output: Intake & Output 01/13/24 01/14/24 01/15/24 01/16/24 23:59 23:59 23:59 23:59 Intake Total 2760 1565 2254 1191.0 Output Total 4700 1375 1775 800 Balance -1940 190 479 391.0 Meds/Results Medications: Active Medications Generic Name Dose Route Start Last Admin Trade Name Freq PRN Reason Stop Dose Admin Acetaminophen 650 mg 01/10/24 08:02 01/15/24 14:20 Acetaminophen 325 Mg Tablet FEED TUBE 650 mg Q6H PRN Administration Mild Pain (1-3) or Fever Amlodipine Besylate 10 mg 01/11/24 14:05 01/16/24 08:16 Amlodipine Besylate 10 Mg Tablet FEED TUBE 10 mg DAILY CARMELA Administration Aspirin 325 mg 10/11/24 16:00 01/16/24 07:48 Aspirin 325 Mg Tablet FEED TUBE 325 mg DAILY@0800 CARMELA Administration Atorvastatin Calcium 40 mg 01/13/24 09:00 01/16/24 08:16 Atorvastatin 40 Mg Tablet FEED TUBE 40 mg DAILY CARMELA Administration Dextrose 12.5 gm 01/07/24 13:18 Dextrose 50% 25 Gm/50 Ml Syringe IV PUSH PRN PRN Hypoglycemia Protocol Epoetin Dane-epbx 10,000 units 01/12/24 09:20 01/15/24 08:11 Epoetin Dane-Epbx 10,000 Units/Ml Vial SUB-Q 10,000 units MOWEFR@09 CARMELA Administration Glucagon 1 mg 01/07/24 13:18 Glucagon For Inj 1 Mg Vial IM PRN PRN Hypoglycemia Protocol Glucose 15 gm 01/07/24 13:18 Glucose Oral Gel 15 Gm Of Glucse In 37.5 Gm Tube PO PRN PRN Hypoglycemia Protocol Heparin Sodium (Porcine) 5,500 units 01/15/24 17:19 Heparin Sodium 5,000 Units/Ml Vial IV PUSH PRN PRN aPTT less than 55 seconds Heparin Sodium (Porcine) 3,000 units 01/15/24 17:19 Heparin Sodium 5,000 Units/Ml Vial IV PUSH PRN PRN aPTT 55 - 70 seconds Hydralazine HCl 10 mg 01/12/24 08:00 01/16/24 07:48 Hydralazine 10 Mg Tablet FEED TUBE 10 mg Q6H CARMELA Administration Dextrose 1,000 mls @ 100 mls/hr 01/07/24 13:18 Dextrose 5% 1,000 Ml IVPB PRN PRN Hypoglycemia Protocol Albumin Human 50 mls @ 999 mls/hr 01/07/24 17:11 01/12/24 10:30 Albutein IVPB 02/06/24 17:10 Infused Q10M PRN Infusion HYPOTENSION Levetiracetam 500 mg in 100 mls @ 400 mls/hr 01/07/24 21:00 01/15/24 20:45 Keppra Iv IVPB Infused Q24H CARMELA Infusion Heparin Sodium/Dextrose 25,000 units in 250 mls @ 11 mls/hr 01/15/24 17:45 01/16/24 07:19 Heparin Sodium/D5w 100 Units/Ml IV CONT 1,100 units/hr .[id number] CARMELA 11 mls/hr Titration Protocol 1,100 UNITS/HR Insulin Aspart 4 - 8 units 01/10/24 07:55 01/16/24 11:27 Insulin Aspart (*Bkc) 100 Units/Ml SUB-Q 5 units Q4H CARMELA Administration Protocol Insulin Glargine 55 units 01/16/24 09:00 01/16/24 07:39 Insulin Glargine (*Bkc) 100 Units/Ml SUB-Q 55 units Q12H CARMELA Administration Labetalol HCl 20 mg 01/08/24 14:39 01/15/24 20:29 Labetalol Hcl Inj 100 Mg/20 Ml Vial IV PUSH 20 mg Q4H PRN Administration Hypertension Metoprolol Tartrate 100 mg 01/16/24 09:00 01/16/24 08:16 Metoprolol Tartrate 50 Mg Tab FEED TUBE 100 mg Q12HR CARMELA Administration Multi-Ingred Cream/Lotion/Oil/Oint 1 applic 01/07/24 21:00 01/16/24 08:16 Mineral Oil/White Petrolatum Ointment EACH EYE 1 applic Q12HR CARMELA Administration Pantoprazole Sodium 40 mg 01/07/24 21:00 01/16/24 08:16 Pantoprazole Sodium Iv 40 Mg Vial IV PUSH 40 mg Q12HR CARMELA Administration Radiology Results: ITS Impressions Abdomen/Pelvis CT 01/07/24 16:52 IMPRESSION: No acute abdominopelvic process. Specifically, there is no CT evidence of bowel obstruction. No definite evidence of renal injury, noting that low-grade renal injury as can be difficult to detect without contrast. Renal Ultrasound 01/08/24 10:47 IMPRESSION: 1. Normal kidney sizes. No hydronephrosis. Chest/Abdomen/Pelvis CT 01/12/24 15:08 IMPRESSION: Interval enlargement of the liver, when compared with previous examination. Flattening of the inferior vena cava suggesting severe hypovolemia. Interval development of basilar atelectasis and trace bilateral pleural effusions. No additional findings which represents a change from prior examination performed 01/07/2024. Supportive devices are in good position. Redemonstration of multiple stones within the gallbladder which is not distended. Head CT 01/12/24 15:31 IMPRESSION: 1. 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 2. Large distribution of chronic encephalomalacia in the expected distribution of left middle cerebral artery. Abdomen Ultrasound 01/13/24 09:31 IMPRESSION: 1. Cholelithiasis. 2. Normal liver Doppler. Arterial/Peripheral Duplex 01/13/24 09:31 IMPRESSION: 1. Cholelithiasis. 2. Normal liver Doppler. Venous Doppler Study 01/15/24 17:14 IMPRESSION: 1. Deep vein thrombosis involving left common femoral vein. ADDENDUM: 01/15/24 [id number] I called this result to Apurva Mclean. Abdomen X-Ray 01/16/24 06:03 Impression: NG tube in satisfactory position. Chest X-Ray 01/16/24 06:20 Impression: Probable focal left lower lobe atelectasis or possibly focal pneumonia. Stable support tubes. Labs Labs: Laboratory Results - last 24 hr 01/15/24 01/15/24 01/15/24 11:56 16:15 17:39 WBC RBC Hgb Hct MCV MCH MCHC RDW Plt Count MPV PT 15.1 H INR 1.2 APTT 30.1 Sodium Potassium Chloride Carbon Dioxide Anion Gap BUN Creatinine Estim Creat Clear Calc Estimated GFR Glucose POC Capillary Glucose 324 H 323 H Calcium Phosphorus Magnesium Total Bilirubin AST ALT Alkaline Phosphatase Total Protein Albumin Vancomycin Trough 01/15/24 01/15/24 01/16/24 20:12 23:51 00:04 WBC RBC Hgb Hct MCV MCH MCHC RDW Plt Count MPV PT INR APTT 134.4 H Sodium Potassium Chloride Carbon Dioxide Anion Gap BUN Creatinine Estim Creat Clear Calc Estimated GFR Glucose POC Capillary Glucose 266 H 281 H Calcium Phosphorus Magnesium Total Bilirubin AST ALT Alkaline Phosphatase Total Protein Albumin Vancomycin Trough 01/16/24 01/16/24 01/16/24 03:58 06:56 07:38 WBC 8.8 RBC 2.60 L Hgb 7.8 L Hct 25.6 L MCV 98.5 MCH 30.0 MCHC 30.5 L RDW 14.1 Plt Count 393 H MPV 11.4 H PT INR APTT 78.5 H Sodium 145 Potassium 4.1 Chloride 109 H Carbon Dioxide 29 Anion Gap 7 BUN 66 H D Creatinine 2.90 H Estim Creat Clear Calc 18 Estimated GFR 16 L Glucose 301 H POC Capillary Glucose 269 H 276 H Calcium 8.6 Phosphorus 2.4 L Magnesium 2.0 Total Bilirubin 0.3 AST 37 H ALT 22 Alkaline Phosphatase 93 Total Protein 7.0 Albumin 3.1 L Vancomycin Trough 01/16/24 01/16/24 09:01 11:27 WBC RBC Hgb Hct MCV MCH MCHC RDW Plt Count MPV PT INR APTT Sodium Potassium Chloride Carbon Dioxide Anion Gap BUN Creatinine Estim Creat Clear Calc Estimated GFR Glucose POC Capillary Glucose 282 H Calcium Phosphorus Magnesium Total Bilirubin AST ALT Alkaline Phosphatase Total Protein Albumin Vancomycin Trough 24.3 H Quality VTE Prophylaxis VTE prophylaxis: mechanical ordered and pharmacologic ordered
--- NOTE | 2024-01-16 11:53 | PCNFU ---
Nutrition Follow-Up Complete: Inadequate energy intake related to mechanical ventilation, increased needs from dialysis as evidenced by need for full tube feeding Goal: Meet estimated nutrition needs Patient is progressing towards goal. We will continue current goal. Pt current nutrition is Nepro at 50 ml/hr Last recorded weight is 80.3 kg, stable Bowel Motility: +BM reported 01/14 Labs Reviewed:Glu 301, Cr 2.9,BUN 66, Alb 3.1 Meds Noted:Protonix, Keppra,Lopressor, Heparin, Lantus, NovoLog. Skin: WNL Additional Notes: Patient remains on mechanical vent. No sedation. Tube feedings are being tolerated of Nepro at to 50 ml/hr. Tube feedings providing 1980 kcal/89 gm protein/800 ml water. Flush 100 ml q 4hours. Agree with diet orders at this time. Monitoring tube feeding tolerance, labs, weights, output, plan of care Follow up daily in rounds, reassess Monday and Monday
[2024-01-16 12:34] LABS: Partial Thromboplastin Time 65.6 Seconds (22.3-36.8)
[2024-01-16] MEDS: HEPARIN SODIUM 5,000 UNITS/ML VIAL 3000 UNITS IV PUSH (12:46)
[2024-01-16] MEDS: HEPARIN SOD/D5W 100 UNITS/ML 25,000 UNITS/250 ML BAG 12 UNITS IV CONT (14:35)
[2024-01-16 14:41] LABS: Glucose Point of Care 239 mg/dl (65-105)
[2024-01-16 18:31] LABS: Partial Thromboplastin Time 127.1 Seconds (22.3-36.8)
[2024-01-16 19:56] LABS: Glucose Point of Care 217 mg/dl (65-105)
[2024-01-16] MEDS: levETIRAcetam 500MG/NACL 100ML 500 MG/100 ML BAG 400 MG IVPB (20:03)
[2024-01-17] VITALS (46 sets, daily range): BP systolic 91–152; BP diastolic 53–80; PULSE 75–100; RESP 12–22; TEMP 37–38.3; O2SAT 100
[2024-01-17] MEDS: INSULIN ASPART (*BKC) 100 UNITS/ML SUB-Q ×4 (00:03→20:45)
[2024-01-17 00:04] LABS: Glucose Point of Care 203 mg/dl (65-105)
[2024-01-17] MEDS: ACETAMINOPHEN 325 MG TABLET 650 MG FEED TUBE ×2 (02:07→20:44)
[2024-01-17] MEDS: hydrALAZINE 10 MG TABLET FEED TUBE ×4 (02:07→20:44)
[2024-01-17 04:35] LABS: Glucose Point of Care 212 mg/dl (65-105)
[2024-01-17 05:28] LABS: Alveolar/Arterial O2 Gradient 21.4 mmHg; Base Excess ABG 5.3 mEq/l (+/-2.0); Carboxyhemoglobin 0.6 % THb (0-2.0); Fractional Inspired Oxygen 21 %; HCO3 ABG 28.4 mEq/l (22.0-26.0); Methemoglobin ABG 0.1 %THb (0-1.5); Oxygen Content ABG 10.6 %vol (16.0-22.0); Oxygen Saturation ABG 97.4 % (95.0-100.0); Oxyhemoglobin 96.6 % THb (90.0-100.0); PO2 ABG 86.4 mmHg (80.0-100.0); PO2 FiO2 Ratio Arterial Blood 4.11 %; Reduced Hemoglobin 2.7 %THb (0-5.0)
[2024-01-17 05:30] LABS: Device VENTILATOR; Modified Allen's Test Pass; Site Drawn LEFT RADIAL; Total Hemoglobin 7.7 g/dL (12.0-18.0); pH ABG 7.527 (7.350-7.450)
[2024-01-17 05:32] LABS: Arterial Blood Gas PEEP 5 cmH2O; Arterial Blood Gas Tidal Volume 300 ml; Arterial Blood Gas Vent Mode CMV; Arterial Blood Gas Ventilator rate 14 /MIN
[2024-01-17 06:09] LABS: Basophils Absolute Auto 0.1 K/mm3 (0.0-0.1); Basophils Percent Auto 0.5 % (0.2-1.2); Eosinophils Absolute Auto 0.3 K/mm3 (0-0.3); Hematocrit 22.5 % (37.0-47.0); Immature Granulocyte Absolute 0.29 K/mm3 (0.00-0.031); Immature Granulocyte Percent A 3.1 % (0-0.5); Lymphocytes Percent Auto 20.6 % (18.3-44.2); Mean Corpuscular HGB Conc 29.8 g/dl (32-36); Mean Corpuscular Hemoglobin 29.5 pg (26-34); Mean Corpuscular Volume 99.1 fl (80-100); Mean Platelet Volume 11.2 fl (7.4-10.4); Monocytes Absolute Auto 0.9 K/mm3 (0.1-0.6); Monocytes Percent Auto 9.4 % (2.6-8.5); Neutrophils Absolute Auto 5.8 K/mm3 (1.3-6.7); Neutrophils Percent Auto 63.4 % (45.5-73.1); Nucleated Red Blood Cells Perc 0.4 % (0.0-0.2); Platelet Count Result 384 k/mm3 (150-375); Red Blood Count 2.27 M/mm3 (4.2-5.4); Red Cell Distribution Width 14.6 % (11.5-14.5); White Blood Count 9.2 K/mm3 (4.5-10.0)
[2024-01-17 06:21] LABS: Ammonia < 9 umol/L (9-30); Partial Thromboplastin Time 81.4 Seconds (22.3-36.8)
[2024-01-17 06:22] LABS: Alanine Aminotransferase 21 U/L (6-35); Albumin Level 2.8 g/dL (3.5-5.1); Alkaline Phosphatase 86 U/L (38-126); Anion Gap 8 mmol/L (4-12); Aspartate Amino Transferase 40 U/L (14-36); Bilirubin,Total 0.3 mg/dL (0.2-1.3); Blood Urea Nitrogen 69 mg/dL (7-17); Calcium 8.5 mg/dL (8.4-10.2); Carbon Dioxide 28 mmol/L (22-30); Chloride 107 mmol/L (98-107); Estimated CRCL calculation 17 ml/min; Estimated Glomerular Filt Rate 15; Glucose 209 mg/dL (65-110); Magnesium 1.9 mg/dL (1.6-2.3); Phosphorus 2.5 mg/dL (2.5-4.5); Potassium 3.4 mmol/L (3.4-5.0); Sodium 143 mmol/L (137-145)
[2024-01-17 06:53] LABS: Hemoglobin 6.7 g/dL (12.0-15.0)
[2024-01-17 06:55] LABS: Anisocytosis 2+; Hypochromasia 1+; Platelet Estimate Increased (Adequate); Polychromasia 1+; Schistocytes None Seen
[2024-01-17 08:04] LABS: Glucose Point of Care 198 mg/dl (65-105)
[2024-01-17 08:20] LABS: Basophils Percent Auto 0.4 % (0.2-1.2); Eosinophils Absolute Auto 0.3 K/mm3 (0-0.3); Eosinophils Percent Auto 2.8 % (0-4.4); Immature Granulocyte Absolute 0.41 K/mm3 (0.00-0.031); Lymphocytes Absolute Auto 1.82 K/mm3 (0.9-3.2); Lymphocytes Percent Auto 17.6 % (18.3-44.2); Mean Corpuscular Hemoglobin 29.6 pg (26-34); Mean Corpuscular Volume 98.7 fl (80-100); Mean Platelet Volume 11.7 fl (7.4-10.4); Monocytes Absolute Auto 1.1 K/mm3 (0.1-0.6); Monocytes Percent Auto 10.6 % (2.6-8.5); Neutrophils Absolute Auto 6.7 K/mm3 (1.3-6.7); Neutrophils Percent Auto 64.6 % (45.5-73.1); Nucleated Red Blood Cells Perc 0.4 % (0.0-0.2); Platelet Count Result 397 k/mm3 (150-375); Red Blood Count 2.33 M/mm3 (4.2-5.4); Red Cell Distribution Width 14.6 % (11.5-14.5); White Blood Count 10.4 K/mm3 (4.5-10.0)
[2024-01-17 08:30] LABS: Hemoglobin 6.9 g/dL (12.0-15.0)
[2024-01-17] MEDS: METOPROLOL TARTRATE 50 MG TAB 100 MG FEED TUBE (08:43)
[2024-01-17] MEDS: ASPIRIN 325 MG TABLET FEED TUBE (08:43)
[2024-01-17] MEDS: POTASSIUM CHLORIDE 20 MEQ PACKET (FOR LIQUID) 40 MEQ FEED TUBE (08:43)
[2024-01-17] MEDS: ATORVASTATIN 40 MG TABLET FEED TUBE (08:43)
[2024-01-17] MEDS: EPOETIN ALFA-EPBX 10,000 UNITS/ML VIAL 10000 UNITS SUB-Q (08:44)
[2024-01-17] MEDS: MINERAL OIL/WHITE PETROLATUM OINTMENT 1 APPLIC EACH EYE ×2 (08:44→20:46)
[2024-01-17] MEDS: PANTOPRAZOLE SODIUM IV 40 MG VIAL IV PUSH ×2 (08:44→20:45)
[2024-01-17] MEDS: amLODIPine BESYLATE 10 MG TABLET FEED TUBE (08:44)
[2024-01-17] MEDS: INSULIN GLARGINE (*BKC) 100 UNITS/ML 60 UNITS SUB-Q (08:44)
--- NOTE | 2024-01-17 10:35 | PCFNICU ---
ICU Rounding Note: Pt current nutrition is Nepro at 50 ml/hr Last recorded weight is 77.2 kg, 79.5 kg on admit. Bowel Motility: +BM reported 01/16 Labs Reviewed:Glu 209, Cr 3.1,GFR 15, BUN 69 Meds Noted:Lantus, NovoLog, Keppra, Heparin, Protonix, Lopressor. Skin: WNL Additional Notes: Patient remains on mechanical vent. No sedation.Tube feedings are being tolerating of Nepro at 50 ml/hr with 100 ml flush q 4 hours. Discussions in rounds today regarding blood sugars, Lantus increased to 60 units. Surgery consult for IVC filter. Plans for Dialysis today. Agree with diet orders. Monitoring tube feeding tolerance, labs, weights, output, plan of care Follow up daily in rounds, reassess Monday and Monday.
--- NOTE | 2024-01-17 10:57 | PM.IMPN ---
Progress Note: A&P Assessment and Plan (1) Stroke: Code(s): I63.9 - Cerebral infarction, unspecified Status: Acute (2) Anemia: Code(s): D64.9 - Anemia, unspecified Status: Acute Plan Acute bilateral stroke Encephalopathy secondary to stroke -patient's mentation is still very poor, unresponsive, continue IMV -brain MRI consistent with bilateral extensive infarcts -appreciate critical care consultation for ventilator management, patient on 21% O2 -EEG 01/12: Abnormal with moderate diffuse background slowing -full-dose aspirin, statin -seizure prophylaxis: Keppra 500 mg daily -stopping vancomycin and cefepime. No leukocytosis, afebrile Acute DVT LLE -DVT found in left common femoral vein -stopping heparin drip -IVC filter to be placed Septic shock resolved, suspected to secondary to aspiration pneumonia or UTI -completed antibiotics cefepime and vancomycin -off vasopressors -blood cultures urine culture negative -sputum cultures positive for yeast Acute on chronic renal failure -appreciate Nephrology consultation -may be secondary to hemodynamic insufficiency, ATN, was hypotensive requiring vasopressors -improvement of renal function next -patient had temporary dialysis, now making urine, continue Clark catheter for strict I&O and while on IMV -despite clearing uremia patient is still having encephalopathy Acute on chronic anemia -hemoglobin dropped to 6.7, giving 1 unit packed red blood cells -patient has CKD, on Epogen, now after starting heparin drip has developed worsening anemia -IVC filter being placed for DVT Chronic conditions -essential hypertension: Amlodipine, hydralazine, metoprolol tartrate -anemia of CKD: On EPO. Hemoglobin 6.7 continue monitor, giving 1u PRBC -type 2 diabetes insulin: On sliding scale insulin, glargine 55 units q.12 hours, hypoglycemia protocol, Accu-Cheks q6hr -CKD4/5, GFR 16 Diet: tube feeding DVT prophylaxis: placing IVC filter. No chemoprophylaxis with worsening anemia GI prophylaxis: B.i.d. Protonix Code status: DNR Disposition: Continue monitoring in ICU on ventilator Time Spent With Patient Time: 35 minutes Subjective Date/time seen: 01/17/24 10:57 Interval history: Patient seen and examined. After starting heparin drip patient had developed some anemia hemoglobin 6.7, giving 1 unit packed red blood cells. Patient having IVC filter placed today. Creatinine creeping up to 3.1. Still no significant movement despite no sedation. Review of Systems Review of Systems: Unable to obtain due to mental status Exam Narrative: - GENERAL: Elderly woman intubated - HENT: Moist mucous membranes. ET tube - LUNGS: Clear to auscultation bilaterally, no wheezing or rales - CARDIOVASCULAR: Regular rate and rhythm. - ABDOMEN: Soft, non-tender and non-distended. No palpable masses. - EXTREMITIES: No edema. Peripheral pulses 2+. Non-tender. - NEUROLOGIC: gag reflex intact, not arousable - PSYCHIATRIC: Unable to obtain - SKIN: No rashes or lesions. Warm. - LYMPH: No cervical lymphadenopathy. Objective Data Vital Signs Vital Signs: Vital Signs - 24 hr 01/16/24 11:31 01/16/24 12:00 01/16/24 12:00 Temperature Pulse Rate 95 93 Respiratory Rate Blood Pressure Pulse Oximetry 100 Oxygen Delivery Mechanical Ventilation Fraction of Inspired Oxygen 21 21 01/16/24 12:00 01/16/24 12:00 01/16/24 14:00 Temperature 38.1 C H Pulse Rate 93 93 100 Respiratory Rate 19 19 Blood Pressure 149/67 H Pulse Oximetry 100 100 Oxygen Delivery Mechanical Ventilation Fraction of Inspired Oxygen 21 01/16/24 14:00 01/16/24 14:31 01/16/24 16:00 Temperature 38.1 C H Pulse Rate 100 105 H 105 H Respiratory Rate 20 Blood Pressure 142/65 H Pulse Oximetry 100 100 Oxygen Delivery Mechanical Ventilation Fraction of Inspired Oxygen 21 01/16/24 16:00 01/16/24 16:00 01/16/24 16:00 Temperature 38.1 C H Pulse Rate 105 H 100 Respiratory Rate 25 H 25 H Blood Pressure 157/63 H Pulse Oximetry 100 100 Oxygen Delivery Mechanical Ventilation Fraction of Inspired Oxygen 21 21 01/16/24 17:08 01/16/24 18:00 01/16/24 18:00 Temperature 38.1 C H Pulse Rate 99 106 H 106 H Respiratory Rate 100 H Blood Pressure 146/63 H Pulse Oximetry 100 20 L Oxygen Delivery Mechanical Ventilation Fraction of Inspired Oxygen 21 01/16/24 20:04 01/16/24 20:07 01/16/24 20:00 Temperature Pulse Rate 109 H 108 H 110 H Respiratory Rate Blood Pressure Pulse Oximetry 100 Oxygen Delivery Mechanical Ventilation Fraction of Inspired Oxygen 01/16/24 20:00 01/16/24 20:00 01/16/24 20:00 Temperature 38.2 C H Pulse Rate 110 H Respiratory Rate 20 Blood Pressure 165/72 H Pulse Oximetry 99 Oxygen Delivery Mechanical Ventilation Fraction of Inspired Oxygen 21 21 01/16/24 22:00 01/16/24 22:00 01/16/24 23:26 Temperature 38.2 C H Pulse Rate 81 81 87 Respiratory Rate 17 Blood Pressure 128/59 L Pulse Oximetry 100 100 Oxygen Delivery Mechanical Ventilation Fraction of Inspired Oxygen 21 01/17/24 00:00 01/17/24 00:00 01/17/24 00:00 Temperature 38.3 C H Pulse Rate 88 88 Respiratory Rate 19 Blood Pressure 133/59 L Pulse Oximetry 100 Oxygen Delivery Mechanical Ventilation Fraction of Inspired Oxygen 21 01/17/24 00:00 01/17/24 02:00 01/17/24 02:00 Temperature 38.3 C H Pulse Rate 92 92 Respiratory Rate 21 H Blood Pressure 126/54 L Pulse Oximetry 100 Oxygen Delivery Fraction of Inspired Oxygen 21 01/17/24 02:05 01/17/24 02:07 01/17/24 03:07 Temperature 38.3 C H 38.3 C H Pulse Rate 91 Respiratory Rate Blood Pressure Pulse Oximetry 100 Oxygen Delivery Mechanical Ventilation Fraction of Inspired Oxygen 21 01/17/24 04:00 01/17/24 04:00 01/17/24 04:00 Temperature 38.2 C H Pulse Rate 96 96 Respiratory Rate 22 H Blood Pressure 120/53 L Pulse Oximetry 100 Oxygen Delivery Mechanical Ventilation Fraction of Inspired Oxygen 21 01/17/24 04:00 01/17/24 05:11 01/17/24 06:00 Temperature Pulse Rate 96 88 Respiratory Rate Blood Pressure Pulse Oximetry 100 Oxygen Delivery Mechanical Ventilation Fraction of Inspired Oxygen 21 21 01/17/24 06:00 01/17/24 08:00 01/17/24 08:10 Temperature 38.0 C H 37.9 C H Pulse Rate 88 100 96 Respiratory Rate 17 20 Blood Pressure 116/55 L 140/63 Pulse Oximetry 100 100 100 Oxygen Delivery Mechanical Ventilation Fraction of Inspired Oxygen 21 01/17/24 08:43 01/17/24 08:00 01/17/24 08:00 Temperature Pulse Rate 97 97 95 Respiratory Rate 20 Blood Pressure Pulse Oximetry 100 Oxygen Delivery Mechanical Ventilation Fraction of Inspired Oxygen 01/17/24 10:00 01/17/24 10:00 Temperature 37.8 C H Pulse Rate 75 76 Respiratory Rate 13 Blood Pressure 116/54 L Pulse Oximetry 100 Oxygen Delivery Fraction of Inspired Oxygen Intake/Output Intake/Output: Intake & Output 01/14/24 01/15/24 01/16/24 01/17/24 23:59 23:59 23:59 23:59 Intake Total 1565 2254 2098.8 1040.8 Output Total 1375 1775 1250 125 Balance 190 479 848.8 915.8 Meds/Results Medications: Active Medications Generic Name Dose Route Start Last Admin Trade Name Freq PRN Reason Stop Dose Admin Acetaminophen 650 mg 01/10/24 08:02 01/17/24 02:07 Acetaminophen 325 Mg Tablet FEED TUBE 650 mg Q6H PRN Administration Mild Pain (1-3) or Fever Amlodipine Besylate 10 mg 01/11/24 14:05 01/17/24 08:44 Amlodipine Besylate 10 Mg Tablet FEED TUBE 10 mg DAILY CARMELA Administration Aspirin 325 mg 01/12/24 16:00 01/17/24 08:43 Aspirin 325 Mg Tablet FEED TUBE 325 mg DAILY@0800 CARMELA Administration Atorvastatin Calcium 40 mg 01/13/24 09:00 01/17/24 08:43 Atorvastatin 40 Mg Tablet FEED TUBE 40 mg DAILY CARMELA Administration Dextrose 12.5 gm 01/07/24 13:18 Dextrose 50% 25 Gm/50 Ml Syringe IV PUSH PRN PRN Hypoglycemia Protocol Epoetin Dane-epbx 10,000 units 01/12/24 09:20 01/17/24 08:44 Epoetin Dane-Epbx 10,000 Units/Ml Vial SUB-Q 10,000 units MOWEFR@09 CARMELA Administration Glucagon 1 mg 01/07/24 13:18 Glucagon For Inj 1 Mg Vial IM PRN PRN Hypoglycemia Protocol Glucose 15 gm 01/07/24 13:18 Glucose Oral Gel 15 Gm Of Glucse In 37.5 Gm Tube PO PRN PRN Hypoglycemia Protocol Hydralazine HCl 10 mg 01/12/24 08:00 01/17/24 08:43 Hydralazine 10 Mg Tablet FEED TUBE 10 mg Q6H CARMELA Administration Dextrose 1,000 mls @ 100 mls/hr 01/07/24 13:18 Dextrose 5% 1,000 Ml IVPB PRN PRN Hypoglycemia Protocol Albumin Human 50 mls @ 999 mls/hr 01/07/24 17:11 01/12/24 10:30 Albutein IVPB 02/06/24 17:10 Infused Q10M PRN Infusion HYPOTENSION Levetiracetam 500 mg in 100 mls @ 400 mls/hr 01/07/24 21:00 01/16/24 20:18 Keppra Iv IVPB Infused Q24H CARMELA Infusion Sodium Chloride 250 mls @ 30 mls/hr 01/17/24 08:35 Normal Saline Iv IV CONT 01/17/24 16:54 .Q8H20M STA Insulin Aspart 4 - 8 units 01/10/24 07:55 01/17/24 08:26 Insulin Aspart (*Bkc) 100 Units/Ml SUB-Q Not Given Q4H CARMELA Protocol Insulin Glargine 60 units 01/17/24 09:00 01/17/24 08:44 Insulin Glargine (*Bkc) 100 Units/Ml SUB-Q 60 units Q12H CARMELA Administration Labetalol HCl 20 mg 01/08/24 14:39 01/15/24 20:29 Labetalol Hcl Inj 100 Mg/20 Ml Vial IV PUSH 20 mg Q4H PRN Administration Hypertension Metoprolol Tartrate 100 mg 01/16/24 09:00 01/17/24 08:43 Metoprolol Tartrate 50 Mg Tab FEED TUBE 100 mg Q12HR CARMELA Administration Multi-Ingred Cream/Lotion/Oil/Oint 1 applic 01/07/24 21:00 01/17/24 08:44 Mineral Oil/White Petrolatum Ointment EACH EYE 1 applic Q12HR CARMELA Administration Pantoprazole Sodium 40 mg 01/07/24 21:00 01/17/24 08:44 Pantoprazole Sodium Iv 40 Mg Vial IV PUSH 40 mg Q12HR CARMELA Administration Radiology Results: ITS Impressions Abdomen/Pelvis CT 01/07/24 16:52 IMPRESSION: No acute abdominopelvic process. Specifically, there is no CT evidence of bowel obstruction. No definite evidence of renal injury, noting that low-grade renal injury as can be difficult to detect without contrast. Renal Ultrasound 01/08/24 10:47 IMPRESSION: 1. Normal kidney sizes. No hydronephrosis. Chest/Abdomen/Pelvis CT 01/12/24 15:08 IMPRESSION: Interval enlargement of the liver, when compared with previous examination. Flattening of the inferior vena cava suggesting severe hypovolemia. Interval development of basilar atelectasis and trace bilateral pleural effusions. No additional findings which represents a change from prior examination performed 01/07/2024. Supportive devices are in good position. Redemonstration of multiple stones within the gallbladder which is not distended. Head CT 01/12/24 15:31 IMPRESSION: 1. 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 2. Large distribution of chronic encephalomalacia in the expected distribution of left middle cerebral artery. Abdomen Ultrasound 01/13/24 09:31 IMPRESSION: 1. Cholelithiasis. 2. Normal liver Doppler. Arterial/Peripheral Duplex 01/13/24 09:31 IMPRESSION: 1. Cholelithiasis. 2. Normal liver Doppler. Venous Doppler Study 01/15/24 17:14 IMPRESSION: 1. Deep vein thrombosis involving left common femoral vein. ADDENDUM: 01/15/24 2029 I called this result to Apurva Mclean. Abdomen X-Ray 01/16/24 06:03 Impression: NG tube in satisfactory position. Chest X-Ray 01/17/24 05:53 Impression: Stable probable left lower lobe atelectasis or pneumonia. Stable support tubes. Labs Labs: Laboratory Results - last 24 hr 01/16/24 01/16/24 01/16/24 11:27 12:11 14:39 WBC RBC Hgb Hct MCV MCH MCHC RDW Plt Count MPV Immature Gran % (Auto) Neut % (Auto) Lymph % (Auto) [place] % (Auto) Eos % (Auto) Baso % (Auto) Lymph # (Auto) [place] # (Auto) Eos # (Auto) Baso # (Auto) Abs Immat Gran (auto) Absolute Neuts (auto) Absolute Nucleated RBC Nucleated RBC % Platelet Estimate Polychromasia Hypochromasia Anisocytosis Schistocytes APTT 65.6 H Puncture Site ABG pH ABG pCO2 ABG pO2 ABG PO2/FiO2 Ratio ABG HCO3 ABG O2 Saturation ABG O2 Content ABG Base Excess A-a Gradient Oxyhemoglobin Carboxyhemoglobin Methemoglobin Reduced Hemoglobin Total Hemoglobin O2 Delivery Device O2 Liters/Min Minute Volume Vent Rate Vent Mode FiO2 Tidal Volume PEEP Peak Inspir Pressure Pressure Support Sodium Potassium Chloride Carbon Dioxide Anion Gap BUN Creatinine Estim Creat Clear Calc Estimated GFR Glucose POC Capillary Glucose 282 H 239 H Calcium Phosphorus Magnesium Total Bilirubin AST ALT Alkaline Phosphatase Ammonia Total Protein Albumin Crossmatch 01/16/24 01/16/24 01/16/24 18:11 19:51 23:57 WBC RBC Hgb Hct MCV MCH MCHC RDW Plt Count MPV Immature Gran % (Auto) Neut % (Auto) Lymph % (Auto) [place] % (Auto) Eos % (Auto) Baso % (Auto) Lymph # (Auto) [place] # (Auto) Eos # (Auto) Baso # (Auto) Abs Immat Gran (auto) Absolute Neuts (auto) Absolute Nucleated RBC Nucleated RBC % Platelet Estimate Polychromasia Hypochromasia Anisocytosis Schistocytes APTT 127.1 H Puncture Site ABG pH ABG pCO2 ABG pO2 ABG PO2/FiO2 Ratio ABG HCO3 ABG O2 Saturation ABG O2 Content ABG Base Excess A-a Gradient Oxyhemoglobin Carboxyhemoglobin Methemoglobin Reduced Hemoglobin Total Hemoglobin O2 Delivery Device O2 Liters/Min Minute Volume Vent Rate Vent Mode FiO2 Tidal Volume PEEP Peak Inspir Pressure Pressure Support Sodium Potassium Chloride Carbon Dioxide Anion Gap BUN Creatinine Estim Creat Clear Calc Estimated GFR Glucose POC Capillary Glucose 217 H 203 H Calcium Phosphorus Magnesium Total Bilirubin AST ALT Alkaline Phosphatase Ammonia Total Protein Albumin Crossmatch 01/17/24 01/17/24 01/17/24 00:07 04:15 05:14 WBC RBC Hgb Hct MCV MCH MCHC RDW Plt Count MPV Immature Gran % (Auto) Neut % (Auto) Lymph % (Auto) [place] % (Auto) Eos % (Auto) Baso % (Auto) Lymph # (Auto) [place] # (Auto) Eos # (Auto) Baso # (Auto) Abs Immat Gran (auto) Absolute Neuts (auto) Absolute Nucleated RBC Nucleated RBC % Platelet Estimate Polychromasia Hypochromasia Anisocytosis Schistocytes APTT 91.0 H Puncture Site Left radial ABG pH 7.527 H* ABG pCO2 35.0 ABG pO2 86.4 ABG PO2/FiO2 Ratio 4.11 ABG HCO3 28.4 H ABG O2 Saturation 97.4 ABG O2 Content 10.6 L ABG Base Excess 5.3 A-a Gradient 21.4 Oxyhemoglobin 96.6 Carboxyhemoglobin 0.6 Methemoglobin 0.1 Reduced Hemoglobin 2.7 Total Hemoglobin 7.7 L* O2 Delivery Device Ventilator O2 Liters/Min Not Reportable Minute Volume Not Reportable Vent Rate 14 Vent Mode Cmv FiO2 21 Tidal Volume 300 PEEP 5 Peak Inspir Pressure Not Reportable Pressure Support Not Reportable Sodium Potassium Chloride Carbon Dioxide Anion Gap BUN Creatinine Estim Creat Clear Calc Estimated GFR Glucose POC Capillary Glucose 212 H Calcium Phosphorus Magnesium Total Bilirubin AST ALT Alkaline Phosphatase Ammonia Total Protein Albumin Crossmatch 01/17/24 01/17/24 01/17/24 06:03 07:55 08:01 WBC 9.2 10.4 H RBC 2.27 L 2.33 L Hgb 6.7 L* 6.9 L* Hct 22.5 L 23.0 L MCV 99.1 98.7 MCH 29.5 29.6 MCHC 29.8 L 30.0 L RDW 14.6 H 14.6 H Plt Count 384 H 397 H MPV 11.2 H 11.7 H Immature Gran % (Auto) 3.1 H 4.0 H Neut % (Auto) 63.4 64.6 Lymph % (Auto) 20.6 17.6 L [place] % (Auto) 9.4 H 10.6 H Eos % (Auto) 3.0 2.8 Baso % (Auto) 0.5 0.4 Lymph # (Auto) 1.90 1.82 [place] # (Auto) 0.9 H 1.1 H Eos # (Auto) 0.3 0.3 Baso # (Auto) 0.1 0.0 Abs Immat Gran (auto) 0.29 H 0.41 H Absolute Neuts (auto) 5.8 6.7 Absolute Nucleated RBC 0.040 H 0.040 H Nucleated RBC % 0.4 H 0.4 H Platelet Estimate Increased Polychromasia 1+ Hypochromasia 1+ Anisocytosis 2+ Schistocytes None seen APTT 81.4 H Puncture Site ABG pH ABG pCO2 ABG pO2 ABG PO2/FiO2 Ratio ABG HCO3 ABG O2 Saturation ABG O2 Content ABG Base Excess A-a Gradient Oxyhemoglobin Carboxyhemoglobin Methemoglobin Reduced Hemoglobin Total Hemoglobin O2 Delivery Device O2 Liters/Min Minute Volume Vent Rate Vent Mode FiO2 Tidal Volume PEEP Peak Inspir Pressure Pressure Support Sodium 143 Potassium 3.4 Chloride 107 Carbon Dioxide 28 Anion Gap 8 BUN 69 H Creatinine 3.10 H Estim Creat Clear Calc 17 Estimated GFR 15 L Glucose 209 H POC Capillary Glucose 198 H Calcium 8.5 Phosphorus 2.5 Magnesium 1.9 Total Bilirubin 0.3 AST 40 H ALT 21 Alkaline Phosphatase 86 Ammonia < 9 L Total Protein 6.0 L Albumin 2.8 L Crossmatch 01/17/24 08:53 WBC RBC Hgb Hct MCV MCH MCHC RDW Plt Count MPV Immature Gran % (Auto) Neut % (Auto) Lymph % (Auto) [place] % (Auto) Eos % (Auto) Baso % (Auto) Lymph # (Auto) [place] # (Auto) Eos # (Auto) Baso # (Auto) Abs Immat Gran (auto) Absolute Neuts (auto) Absolute Nucleated RBC Nucleated RBC % Platelet Estimate Polychromasia Hypochromasia Anisocytosis Schistocytes APTT Puncture Site ABG pH ABG pCO2 ABG pO2 ABG PO2/FiO2 Ratio ABG HCO3 ABG O2 Saturation ABG O2 Content ABG Base Excess A-a Gradient Oxyhemoglobin Carboxyhemoglobin Methemoglobin Reduced Hemoglobin Total Hemoglobin O2 Delivery Device O2 Liters/Min Minute Volume Vent Rate Vent Mode FiO2 Tidal Volume PEEP Peak Inspir Pressure Pressure Support Sodium Potassium Chloride Carbon Dioxide Anion Gap BUN Creatinine Estim Creat Clear Calc Estimated GFR Glucose POC Capillary Glucose Calcium Phosphorus Magnesium Total Bilirubin AST ALT Alkaline Phosphatase Ammonia Total Protein Albumin Crossmatch See Detail Hospitalist MIPS Advance Care Plan I have confirmed that the patient's Advanced Care Plan is present, code status is documented, or surrogate decision maker is listed in patient medical record.: Yes Medication Reconciliation I have utilized all available resources to obtain, update and review the patients current medications (includes all prescriptions, OTC, herbals, cannabis, and nutritional supplements).: Yes
--- NOTE | 2024-01-17 11:09 | WPDINTPN ---
Progress Note: A&P Assessment and Plan (1) Stroke: Code(s): I63.9 - Cerebral infarction, unspecified Status: Acute Assessment and Plan: Patient presented with altered mental status but at that time patient was respiratory failure acute renal failure acidosis and sepsis. CT scan on presentation showed only old stroke and encephalomalacia Since then patient has not woken up despite holding sedation for multiple days and dialysis. 01/[address] was done which showed. 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 These are likely secondary to hypotension Echo did not show any thrombus or ASD Continue aspirin and statin Neurology following EEG 01/12 - This is an abnormal EEG due to presence of moderate diffuse background slowing suggested generalized cephalopathy. No significant change in neurological status (2) Encephalopathy: Code(s): G93.40 - Encephalopathy, unspecified Status: Acute Assessment and Plan: Patient presented with encephalopathy, altered mental status, delirium, confusion -most likely related to uremia, infection, severe acidosis and baseline flow malacia from past stroke TSH and ammonia normal Patient has been off sedation since 01/09/2024. Still not responsive.. Will continue hold sedatives. EEG as above Patient was dialyzed 01/11 to help with drug removal. Minimal improved Encephalopathy likely secondary to strokes. See above. Neurology following -patient has been off sedation since 01/09/2024, has not woken up -01/16: Ammonia levels are normal 01/11: Repeat CT scan of the brain IMPRESSION: 1. 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 2. Large distribution of chronic encephalomalacia in the expected distribution of left middle cerebral artery. 01/06: CT brain on admission IMPRESSION: 1. No acute intracranial process. 2. 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 3. Additional more diffuse likely age-related mild to moderate diffuse volume loss and mild scattered white matter hypoattenuation consistent with chronic small vessel ischemic disease. (3) Acute respiratory failure: Code(s): J96.00 - Acute respiratory failure, unspecified whether with hypoxia or hypercapnia Status: Acute Assessment and Plan: Patient had an episode of emesis in the ER, given her altered mental status encephalopathy, risk of aspiration with impending respiratory failure patient was intubated on 01/06/2025 -currently on CMV mode of ventilation, peep of 5, 21% FiO2 -ABG reviewed and currently on vent rate to 14 and tidal volume to 300 -patient placed on ASV mode of ventilation and tolerating -chest x-ray reviewed -sedation is on hold. -weaning will depend on improvement in mental status. (4) Acute kidney failure: Code(s): N17.9 - Acute kidney failure, unspecified Status: Acute Assessment and Plan: On chronic kidney injury, unknown cause, CT of the abdomen and pelvis did not show any hydronephrosis or urinary obstruction -significant lactic acidosis and metabolic acidosis -patient has a history of diabetes, hypertension which is likely the cause of chronic kidney disease -patient on lisinopril hydrochlorothiazide and metformin at home -patient was given a total of 3 L IV fluid bolus, 1 L in the ER and 2 L in the ICU -sodium bicarb IV pushes x4 in the ICU -patient was started on sodium bicarb infusion after discussing with Nephrology, which her was discontinued once hemodialysis was started -patient was started on hemodialysis and was dialyzed x 3 days -patient continues to have decent urine output - 01/11 patient was dialyzed again 1 L fluid was removed -continue to monitor urine output, electrolytes and renal function -01/16: worsening creatinine, increased edema, decreased urine output. Discussed with Nephrology, will dialyze patient today (5) Metabolic acidosis: Code(s): E87.20 - Acidosis, unspecified Status: Acute Assessment and Plan: RESOLVED Patient presented with significant metabolic acidosis and lactic acidosis. This could be combination of septic shock, acute kidney injury but also a possibility of metformin toxicity Patient received hemodialysis and IV bicarb. Acidosis has resolved. Further dialysis per Nephrology Monitor (6) Septic shock: Code(s): A41.9 - Sepsis, unspecified organism; R65.21 - Severe sepsis with septic shock Status: Acute Assessment and Plan: RESOLVED Patient hypotensive on presentation Patient was given IV fluid bolus followed by maintenance IV fluids -lactic acid has improved -Levophed weaned off -off IV fluids -source appears to be UTI. Urine and blood cultures are negative till now, STATUS POST CEFTRIAXONE -status post stress dose steroids - 01/10 continues to have fever although other markers of infection are improved as normal WBC. 01/10: Repeat blood cultures are negative x2 Clark catheter change 01/11 Minimal respiratory secretions, sputum cultures growing yeast which is likely a colonization Change Doyle to cefepime and vancomycin 01/14: Patient continues to have low-grade fever but overall fever curve is down. White count is normal. CT scan of chest and pelvis does not show any area suggestive of infection. Clark catheter was changed. Procalcitonin level is also on the lower side. Continue cefepime but will discontinue vancomycin at this time. Cultures are negative till now. -lipase was within normal limits -01/15/2024: lower extremity venous Dopplers: Left common femoral vein DVT -01/14: patient was started on heparin infusion (7) Diastolic dysfunction: Code(s): I51.89 - Other ill-defined heart diseases Status: Acute Assessment and Plan: Echo 01/11 Summary 1. Left ventricular systolic function is normal, estimated at 60-65%. 2. There is moderately increased left ventricular wall thickness. 3. Intact interatrial septum visualized by agitated saline imaging. 4. There is mild aortic valve calcification. 5. There is mild aortic valve stenosis with a peak velocity of 190 cm/s,mean gradient of 8 mmHg, and aortic valve area of 1.8 cm2. 6. There is mild tricuspid valve regurgitation. 7. Mild pulmonary hypertension, estimated pulmonary arterial systolicpressure is 46 mmHg. (8) Insulin dependent diabetes mellitus: Status: Chronic Assessment and Plan: Continue sliding scale insulin Accu-Cheks Lantus was increased and will dose b.i.d. (9) Right hemiparesis: Code(s): G81.91 - Hemiplegia, unspecified affecting right dominant side Status: Acute Assessment and Plan: History of left-sided cerebral hemisphere and CVA, residual mild aphasia and right-sided weakness (10) Seizures: Code(s): R56.9 - Unspecified convulsions Status: Acute Assessment and Plan: Patient has a history of seizures, on p.o. Keppra 500 mg p.o. q.12 hours Continue Keppra IV 500 mg IV q.24 (discuss with pharmacist) EEG negative for any seizure-like activity (11) Hypertension: Code(s): I10 - Essential (primary) hypertension Status: Acute Assessment and Plan: Continue metoprolol, hydralazine and amlodipine (12) Anemia: Code(s): D64.9 - Anemia, unspecified Status: Acute Assessment and Plan: 01/16: Patient has been on heparin infusion for DVT in the right common femoral vein. Dropped hemoglobin this morning to 6.7 from 7.8. -will hold heparin infusion -check stool for Hemoccult -consulted surgery for IVC filter placement Plan DVT prophylaxis: Hold heparin infusion due to anemia Stress ulcer prophylaxis: Protonix IV q.12 hours Nutrition: Continue tube feeds Code Status: DNR Critical Care Time Spent: 33 minutes Will update family Due to a high probability of clinically significant, life threatening deterioration, the patient required my highest level of preparedness to intervene emergently and I personally spent this critical care time directly and personally managing the patient. This critical care time included obtaining a history; examining the patient; pulse oximetry; ordering and review of studies; arranging urgent treatment with development of a management plan; evaluation of patient's response to treatment; frequent reassessment; and discussions with other providers. It was exclusive of separately billable procedures and treating other patients and teaching time. Please see Assessment and Plan section and the rest of the note for further information on patient assessment and treatment This dictation may have been done utilizing a voice recognition system. Attempts have been made to correct errors. However, there may be uncorrected grammatical, spelling, and recognitions errors present. Subjective Date/time seen: 01/17/24 11:09 Interval history: Reason for consult: Altered mental status, acute respiratory failure, severe metabolic acidosis, multiple strokes, DVT 01/17/2024: Patient seen and examined the ICU, remains intubated, on CMV mode of ventilation, peep of 5, 21% FiO2. Sedation has been off since 01/09/2024. Patient does not open eyes to name follows simple commands. Urine output has been low, patient is more animated is this morning. She continues to have fevers with a T-max of 101.0?. Hemodynamically stable, hyperglycemia is better since increasing the Lantus yesterday. Review of Systems Review of Systems: ROS unobtainable: Yes unobtainable due to endotracheal tube, unobtainable due to medical condition and unobtainable due to mental status Exam Narrative: General: Intubated and sedated HEENT:? Pupils are equal and reactive to light, patient has positive corneal reflex, sclera is clear, ETT in place, facial puffiness noted Neck:? Supple, right IJ dialysis catheter in place Respiratory:? Coarse breath sounds bilaterally, decreased at bases no wheezing, adequate air entry Cardiac:? S1-S2 normal, regular rate and rhythm, Abdomen:? Soft, nontender, nondistended, hypoactive bowel sounds, old midline surgical scar noted Extremities:? Dry skin, decreased pedal pulses, pitting edema bilateral lower extremities Neuro:? Patient is intubated, off sedation, PERRL, patient withdraws to pain stimulus in bilateral lower extremities, decerebrate posturing of the upper extremities on pain stimuli. Skin:? Dry and flaky skin on lower extremities, skin is warm Psych:? Unable to assess at this time Objective Data Vital Signs Vital Signs: Vital Signs - 24 hr 01/16/24 11:31 01/16/24 12:00 01/16/24 12:00 Temperature Pulse Rate 95 93 Respiratory Rate Blood Pressure Pulse Oximetry 100 Oxygen Delivery Mechanical Ventilation Fraction of Inspired Oxygen 21 21 01/16/24 12:00 01/16/24 12:00 01/16/24 14:00 Temperature 100.5 F H Pulse Rate 93 93 100 Respiratory Rate 19 19 Blood Pressure 149/67 H Pulse Oximetry 100 100 Oxygen Delivery Mechanical Ventilation Fraction of Inspired Oxygen 21 01/16/24 14:00 01/16/24 14:31 01/16/24 16:00 Temperature 100.6 F H Pulse Rate 100 105 H 105 H Respiratory Rate 20 Blood Pressure 142/65 H Pulse Oximetry 100 100 Oxygen Delivery Mechanical Ventilation Fraction of Inspired Oxygen 21 01/16/24 16:00 01/16/24 16:00 01/16/24 16:00 Temperature 100.5 F H Pulse Rate 105 H 100 Respiratory Rate 25 H 25 H Blood Pressure 157/63 H Pulse Oximetry 100 100 Oxygen Delivery Mechanical Ventilation Fraction of Inspired Oxygen 21 21 01/16/24 17:08 01/16/24 18:00 01/16/24 18:00 Temperature 100.5 F H Pulse Rate 99 106 H 106 H Respiratory Rate 100 H Blood Pressure 146/63 H Pulse Oximetry 100 20 L Oxygen Delivery Mechanical Ventilation Fraction of Inspired Oxygen 21 01/16/24 20:04 01/16/24 20:07 01/16/24 20:00 Temperature Pulse Rate 109 H 108 H 110 H Respiratory Rate Blood Pressure Pulse Oximetry 100 Oxygen Delivery Mechanical Ventilation Fraction of Inspired Oxygen 21 01/16/24 20:00 01/16/24 20:00 01/16/24 20:00 Temperature 100.7 F H Pulse Rate 110 H Respiratory Rate 20 Blood Pressure 165/72 H Pulse Oximetry 99 Oxygen Delivery Mechanical Ventilation Fraction of Inspired Oxygen 21 21 01/16/24 22:00 01/16/24 22:00 01/16/24 23:26 Temperature 100.7 F H Pulse Rate 81 81 87 Respiratory Rate 17 Blood Pressure 128/59 L Pulse Oximetry 100 100 Oxygen Delivery Mechanical Ventilation Fraction of Inspired Oxygen 21 01/17/24 00:00 01/17/24 00:00 01/17/24 00:00 Temperature 100.9 F H Pulse Rate 88 88 Respiratory Rate 19 Blood Pressure 133/59 L Pulse Oximetry 100 Oxygen Delivery Mechanical Ventilation Fraction of Inspired Oxygen 21 01/17/24 00:00 01/17/24 02:00 01/17/24 02:00 Temperature 101.0 F H Pulse Rate 92 92 Respiratory Rate 21 H Blood Pressure 126/54 L Pulse Oximetry 100 Oxygen Delivery Fraction of Inspired Oxygen 21 01/17/24 02:05 01/17/24 02:07 01/17/24 03:07 Temperature 101 F H 100.9 F H Pulse Rate 91 Respiratory Rate Blood Pressure Pulse Oximetry 100 Oxygen Delivery Mechanical Ventilation Fraction of Inspired Oxygen 21 01/17/24 04:00 01/17/24 04:00 01/17/24 04:00 Temperature 100.8 F H Pulse Rate 96 96 Respiratory Rate 22 H Blood Pressure 120/53 L Pulse Oximetry 100 Oxygen Delivery Mechanical Ventilation Fraction of Inspired Oxygen 21 01/17/24 04:00 01/17/24 05:11 01/17/24 06:00 Temperature Pulse Rate 96 88 Respiratory Rate Blood Pressure Pulse Oximetry 100 Oxygen Delivery Mechanical Ventilation Fraction of Inspired Oxygen 21 21 01/17/24 06:00 01/17/24 08:00 01/17/24 08:10 Temperature 100.4 F H 100.2 F H Pulse Rate 88 100 96 Respiratory Rate 17 20 Blood Pressure 116/55 L 140/63 Pulse Oximetry 100 100 100 Oxygen Delivery Mechanical Ventilation Fraction of Inspired Oxygen 21 01/17/24 08:43 01/17/24 08:00 01/17/24 08:00 Temperature Pulse Rate 97 97 95 Respiratory Rate 20 Blood Pressure Pulse Oximetry 100 Oxygen Delivery Mechanical Ventilation Fraction of Inspired Oxygen 01/17/24 10:00 01/17/24 10:00 Temperature 100.0 F H Pulse Rate 75 76 Respiratory Rate 13 Blood Pressure 116/54 L Pulse Oximetry 100 Oxygen Delivery Fraction of Inspired Oxygen Intake/Output Intake/Output: Intake & Output 01/14/24 01/15/24 01/16/24 01/17/24 23:59 23:59 23:59 23:59 Intake Total 1565 2254 2098.8 1040.8 Output Total 1375 1775 1250 125 Balance 190 479 848.8 915.8 Meds/Results Medications: Active Medications Generic Name Dose Route Start Last Admin Trade Name Freq PRN Reason Stop Dose Admin Acetaminophen 650 mg 01/10/24 08:02 01/17/24 02:07 Acetaminophen 325 Mg Tablet FEED TUBE 650 mg Q6H PRN Administration Mild Pain (1-3) or Fever Amlodipine Besylate 10 mg 01/11/24 14:05 01/17/24 08:44 Amlodipine Besylate 10 Mg Tablet FEED TUBE 10 mg DAILY CARMELA Administration Aspirin 325 mg 01/12/24 16:00 01/17/24 08:43 Aspirin 325 Mg Tablet FEED TUBE 325 mg DAILY@0800 CARMELA Administration Atorvastatin Calcium 40 mg 01/13/24 09:00 01/17/24 08:43 Atorvastatin 40 Mg Tablet FEED TUBE 40 mg DAILY CARMELA Administration Dextrose 12.5 gm 01/07/24 13:18 Dextrose 50% 25 Gm/50 Ml Syringe IV PUSH PRN PRN Hypoglycemia Protocol Epoetin Dane-epbx 10,000 units 01/12/24 09:20 01/17/24 08:44 Epoetin Dane-Epbx 10,000 Units/Ml Vial SUB-Q 10,000 units MOWEFR@09 CARMELA Administration Glucagon 1 mg 01/07/24 13:18 Glucagon For Inj 1 Mg Vial IM PRN PRN Hypoglycemia Protocol Glucose 15 gm 01/07/24 13:18 Glucose Oral Gel 15 Gm Of Glucse In 37.5 Gm Tube PO PRN PRN Hypoglycemia Protocol Hydralazine HCl 10 mg 01/12/24 08:00 01/17/24 08:43 Hydralazine 10 Mg Tablet FEED TUBE 10 mg Q6H CARMELA Administration Dextrose 1,000 mls @ 100 mls/hr 01/07/24 13:18 Dextrose 5% 1,000 Ml IVPB PRN PRN Hypoglycemia Protocol Albumin Human 50 mls @ 999 mls/hr 01/07/24 17:11 01/12/24 10:30 Albutein IVPB 02/06/24 17:10 Infused Q10M PRN Infusion HYPOTENSION Levetiracetam 500 mg in 100 mls @ 400 mls/hr 01/07/24 21:00 01/16/24 20:18 Keppra Iv IVPB Infused Q24H CARMELA Infusion Sodium Chloride 250 mls @ 30 mls/hr 01/17/24 08:35 Normal Saline Iv IV CONT 01/17/24 16:54 .Q8H20M STA Insulin Aspart 4 - 8 units 01/10/24 07:55 01/17/24 08:26 Insulin Aspart (*Bkc) 100 Units/Ml SUB-Q Not Given Q4H [facility] Protocol Insulin Glargine 60 units 01/17/24 09:00 01/17/24 08:44 Insulin Glargine (*Bkc) 100 Units/Ml SUB-Q 60 units Q12H CARMELA Administration Labetalol HCl 20 mg 01/08/24 14:39 01/15/24 20:29 Labetalol Hcl Inj 100 Mg/20 Ml Vial IV PUSH 20 mg Q4H PRN Administration Hypertension Metoprolol Tartrate 100 mg 01/16/24 09:00 01/17/24 08:43 Metoprolol Tartrate 50 Mg Tab FEED TUBE 100 mg Q12HR CARMELA Administration Multi-Ingred Cream/Lotion/Oil/Oint 1 applic 01/07/24 21:00 01/17/24 08:44 Mineral Oil/White Petrolatum Ointment EACH EYE 1 applic Q12HR CARMELA Administration Pantoprazole Sodium 40 mg 01/07/24 21:00 01/17/24 08:44 Pantoprazole Sodium Iv 40 Mg Vial IV PUSH 40 mg Q12HR CARMELA Administration Radiology Results: ITS Impressions Abdomen/Pelvis CT 01/07/24 16:52 IMPRESSION: No acute abdominopelvic process. Specifically, there is no CT evidence of bowel obstruction. No definite evidence of renal injury, noting that low-grade renal injury as can be difficult to detect without contrast. Renal Ultrasound 01/08/24 10:47 IMPRESSION: 1. Normal kidney sizes. No hydronephrosis. Chest/Abdomen/Pelvis CT 01/12/24 15:08 IMPRESSION: Interval enlargement of the liver, when compared with previous examination. Flattening of the inferior vena cava suggesting severe hypovolemia. Interval development of basilar atelectasis and trace bilateral pleural effusions. No additional findings which represents a change from prior examination performed 01/07/2024. Supportive devices are in good position. Redemonstration of multiple stones within the gallbladder which is not distended. Head CT 01/12/24 15:31 IMPRESSION: 1. 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 2. Large distribution of chronic encephalomalacia in the expected distribution of left middle cerebral artery. Abdomen Ultrasound 01/13/24 09:31 IMPRESSION: 1. Cholelithiasis. 2. Normal liver Doppler. Arterial/Peripheral Duplex 01/13/24 09:31 IMPRESSION: 1. Cholelithiasis. 2. Normal liver Doppler. Venous Doppler Study 01/15/24 17:14 IMPRESSION: 1. Deep vein thrombosis involving left common femoral vein. ADDENDUM: 01/15/24 [id number] I called this result to Apurva Mclean. Abdomen X-Ray 01/16/24 06:03 Impression: NG tube in satisfactory position. Chest X-Ray 01/17/24 05:53 Impression: Stable probable left lower lobe atelectasis or pneumonia. Stable support tubes. Labs Labs: Laboratory Results - last 24 hr 01/16/24 01/16/24 01/16/24 11:27 12:11 14:39 WBC RBC Hgb Hct MCV MCH MCHC RDW Plt Count MPV Immature Gran % (Auto) Neut % (Auto) Lymph % (Auto) [place] % (Auto) Eos % (Auto) Baso % (Auto) Lymph # (Auto) [place] # (Auto) Eos # (Auto) Baso # (Auto) Abs Immat Gran (auto) Absolute Neuts (auto) Absolute Nucleated RBC Nucleated RBC % Platelet Estimate Polychromasia Hypochromasia Anisocytosis Schistocytes APTT 65.6 H Puncture Site ABG pH ABG pCO2 ABG pO2 ABG PO2/FiO2 Ratio ABG HCO3 ABG O2 Saturation ABG O2 Content ABG Base Excess A-a Gradient Oxyhemoglobin Carboxyhemoglobin Methemoglobin Reduced Hemoglobin Total Hemoglobin O2 Delivery Device O2 Liters/Min Minute Volume Vent Rate Vent Mode FiO2 Tidal Volume PEEP Peak Inspir Pressure Pressure Support Sodium Potassium Chloride Carbon Dioxide Anion Gap BUN Creatinine Estim Creat Clear Calc Estimated GFR Glucose POC Capillary Glucose 282 H 239 H Calcium Phosphorus Magnesium Total Bilirubin AST ALT Alkaline Phosphatase Ammonia Total Protein Albumin Blood Type Antibody Screen Crossmatch 01/16/24 01/16/24 01/16/24 18:11 19:51 23:57 WBC RBC Hgb Hct MCV MCH MCHC RDW Plt Count MPV Immature Gran % (Auto) Neut % (Auto) Lymph % (Auto) [place] % (Auto) Eos % (Auto) Baso % (Auto) Lymph # (Auto) [place] # (Auto) Eos # (Auto) Baso # (Auto) Abs Immat Gran (auto) Absolute Neuts (auto) Absolute Nucleated RBC Nucleated RBC % Platelet Estimate Polychromasia Hypochromasia Anisocytosis Schistocytes APTT 127.1 H Puncture Site ABG pH ABG pCO2 ABG pO2 ABG PO2/FiO2 Ratio ABG HCO3 ABG O2 Saturation ABG O2 Content ABG Base Excess A-a Gradient Oxyhemoglobin Carboxyhemoglobin Methemoglobin Reduced Hemoglobin Total Hemoglobin O2 Delivery Device O2 Liters/Min Minute Volume Vent Rate Vent Mode FiO2 Tidal Volume PEEP Peak Inspir Pressure Pressure Support Sodium Potassium Chloride Carbon Dioxide Anion Gap BUN Creatinine Estim Creat Clear Calc Estimated GFR Glucose POC Capillary Glucose 217 H 203 H Calcium Phosphorus Magnesium Total Bilirubin AST ALT Alkaline Phosphatase Ammonia Total Protein Albumin Blood Type Antibody Screen Crossmatch 01/17/24 01/17/24 01/17/24 00:07 04:15 05:14 WBC RBC Hgb Hct MCV MCH MCHC RDW Plt Count MPV Immature Gran % (Auto) Neut % (Auto) Lymph % (Auto) [place] % (Auto) Eos % (Auto) Baso % (Auto) Lymph # (Auto) [place] # (Auto) Eos # (Auto) Baso # (Auto) Abs Immat Gran (auto) Absolute Neuts (auto) Absolute Nucleated RBC Nucleated RBC % Platelet Estimate Polychromasia Hypochromasia Anisocytosis Schistocytes APTT 91.0 H Puncture Site Left radial ABG pH 7.527 H* ABG pCO2 35.0 ABG pO2 86.4 ABG PO2/FiO2 Ratio 4.11 ABG HCO3 28.4 H ABG O2 Saturation 97.4 ABG O2 Content 10.6 L ABG Base Excess 5.3 A-a Gradient 21.4 Oxyhemoglobin 96.6 Carboxyhemoglobin 0.6 Methemoglobin 0.1 Reduced Hemoglobin 2.7 Total Hemoglobin 7.7 L* O2 Delivery Device Ventilator O2 Liters/Min Not Reportable Minute Volume Not Reportable Vent Rate 14 Vent Mode Cmv FiO2 21 Tidal Volume 300 PEEP 5 Peak Inspir Pressure Not Reportable Pressure Support Not Reportable Sodium Potassium Chloride Carbon Dioxide Anion Gap BUN Creatinine Estim Creat Clear Calc Estimated GFR Glucose POC Capillary Glucose 212 H Calcium Phosphorus Magnesium Total Bilirubin AST ALT Alkaline Phosphatase Ammonia Total Protein Albumin Blood Type Antibody Screen Crossmatch 01/17/24 01/17/24 01/17/24 06:03 07:55 08:01 WBC 9.2 10.4 H RBC 2.27 L 2.33 L Hgb 6.7 L* 6.9 L* Hct 22.5 L 23.0 L MCV 99.1 98.7 MCH 29.5 29.6 MCHC 29.8 L 30.0 L RDW 14.6 H 14.6 H Plt Count 384 H 397 H MPV 11.2 H 11.7 H Immature Gran % (Auto) 3.1 H 4.0 H Neut % (Auto) 63.4 64.6 Lymph % (Auto) 20.6 17.6 L [place] % (Auto) 9.4 H 10.6 H Eos % (Auto) 3.0 2.8 Baso % (Auto) 0.5 0.4 Lymph # (Auto) 1.90 1.82 [place] # (Auto) 0.9 H 1.1 H Eos # (Auto) 0.3 0.3 Baso # (Auto) 0.1 0.0 Abs Immat Gran (auto) 0.29 H 0.41 H Absolute Neuts (auto) 5.8 6.7 Absolute Nucleated RBC 0.040 H 0.040 H Nucleated RBC % 0.4 H 0.4 H Platelet Estimate Increased Polychromasia 1+ Hypochromasia 1+ Anisocytosis 2+ Schistocytes None seen APTT 81.4 H Puncture Site ABG pH ABG pCO2 ABG pO2 ABG PO2/FiO2 Ratio ABG HCO3 ABG O2 Saturation ABG O2 Content ABG Base Excess A-a Gradient Oxyhemoglobin Carboxyhemoglobin Methemoglobin Reduced Hemoglobin Total Hemoglobin O2 Delivery Device O2 Liters/Min Minute Volume Vent Rate Vent Mode FiO2 Tidal Volume PEEP Peak Inspir Pressure Pressure Support Sodium 143 Potassium 3.4 Chloride 107 Carbon Dioxide 28 Anion Gap 8 BUN 69 H Creatinine 3.10 H Estim Creat Clear Calc 17 Estimated GFR 15 L Glucose 209 H POC Capillary Glucose 198 H Calcium 8.5 Phosphorus 2.5 Magnesium 1.9 Total Bilirubin 0.3 AST 40 H ALT 21 Alkaline Phosphatase 86 Ammonia < 9 L Total Protein 6.0 L Albumin 2.8 L Blood Type Antibody Screen Crossmatch 01/17/24 08:53 WBC RBC Hgb Hct MCV MCH MCHC RDW Plt Count MPV Immature Gran % (Auto) Neut % (Auto) Lymph % (Auto) [place] % (Auto) Eos % (Auto) Baso % (Auto) Lymph # (Auto) [place] # (Auto) Eos # (Auto) Baso # (Auto) Abs Immat Gran (auto) Absolute Neuts (auto) Absolute Nucleated RBC Nucleated RBC % Platelet Estimate Polychromasia Hypochromasia Anisocytosis Schistocytes APTT Puncture Site ABG pH ABG pCO2 ABG pO2 ABG PO2/FiO2 Ratio ABG HCO3 ABG O2 Saturation ABG O2 Content ABG Base Excess A-a Gradient Oxyhemoglobin Carboxyhemoglobin Methemoglobin Reduced Hemoglobin Total Hemoglobin O2 Delivery Device O2 Liters/Min Minute Volume Vent Rate Vent Mode FiO2 Tidal Volume PEEP Peak Inspir Pressure Pressure Support Sodium Potassium Chloride Carbon Dioxide Anion Gap BUN Creatinine Estim Creat Clear Calc Estimated GFR Glucose POC Capillary Glucose Calcium Phosphorus Magnesium Total Bilirubin AST ALT Alkaline Phosphatase Ammonia Total Protein Albumin Blood Type O Positive Antibody Screen Negative Crossmatch See Detail Quality VTE Prophylaxis VTE prophylaxis: mechanical ordered and pharmacologic ordered
[2024-01-17 11:46] LABS: Glucose Point of Care 264 mg/dl (65-105)
[2024-01-17 12:48] LABS: IFOB Positive Control Positive; Immunochemical Fecal Occult Bl Positive (N)
--- NOTE | 2024-01-17 14:25 | P.PNNP_ITS ---
Progress Note: A&P Assessment and Plan (1) Acute kidney failure: Code(s): N17.9 - Acute kidney failure, unspecified Status: Acute Assessment and Plan: * baseline creatinine not known * reportedly has some underlying renal insufficiency/CKD per family * still awaiting outside records * evaluation to date noted: * CT of abd/pelvis and renal ultrasound negative for obstruction * urine eosinophils negative * CPK normal * urine electrolytes non-prerenal * UA suggestive of infection * proteinuria noted complicated by severe acidosis and hyperkalemia on admission * etiology likely multifactorial: * infection/sepsis * hemodynamic instability/shock * SRINIVAS-I + HCTZ use prior to admission * possible prerenal factors * metformin use prior to admission * continued BP medications prior to admission * no improvement in mental status with dialytic interventions * stable electrolytes but declining urine output noted * HD today (2) Septic shock: Code(s): A41.9 - Sepsis, unspecified organism; R65.21 - Severe sepsis with septic shock Status: Resolved Assessment and Plan: * resolved * initially normotensive on presentation * however, worsening hypotension in the ER * s/p aggressive IVF resuscitation * presumed source = aspiration pneumonia + UTI * blood and urine cultures negative -- still with on/off fevers * sputum culture showed yeast * on antibiotics * off pressors * follow hemodynamics (3) Acute respiratory failure: Code(s): J96.00 - Acute respiratory failure, unspecified whether with hypoxia or hypercapnia Status: Acute Assessment and Plan: * due to AMS + emesis and concerns for aspiration and inability to protect airway * intubated and on mechanical ventilation * continue ventilator support - off sedation * weaning as tolerated but mentation is still an issue (4) Encephalopathy: Code(s): G93.40 - Encephalopathy, unspecified Status: Acute Assessment and Plan: * as noted by presentation of altered mental status, delirium, and confusion * CT of brain shows several strokes * TSH and ammonia levels noted * HD did not help the mental status * still unresponsive (5) Stroke: Code(s): I63.9 - Cerebral infarction, unspecified Status: Acute Assessment and Plan: * as noted by repeat CT of head on 01/11: * Extensive bilateral acute infarcts in the expected distributions of the bilateral middle cerebral arteries. * presumably secondary to hypotension * Echo did not show any thrombus or ASD * remains unresponsive at this time (6) Anemia: Code(s): D64.9 - Anemia, unspecified Status: Acute Assessment and Plan: * noted drop in H/H by AM labs * was on heparin gtt for left LE DVT * surgery consulted for IVC filter placement * PRBC transfusion per protocol * ALICE with dialysis * follow trend of H/H (7) Deep vein thrombosis of left lower extremity: Code(s): I82.402 - Acute embolism and thrombosis of unspecified deep veins of left lower extremity Status: Acute Assessment and Plan: * as noted by LE dopplers * was on heparin * plan IVC filter placement (8) Insulin dependent diabetes mellitus: Status: Chronic Assessment and Plan: * follow accu-checks * glycemic control per hospitalists/barrel marker Will continue to follow. Subjective Date/time seen: 01/17/24 14:25 Interval history: Follow-up for acute kidney injury/acute renal failure (on chronic kidney disease??). Tolerating dialysis at the time of my visit although having significant fluctuations in BP (seen on HD on 2:15PM); with Remains intubated and on mechanical ventilation; remains off sedation with no improvement in mental status (unresponsive, does not open eyes or follow commands); urine output appears to have declined in the last 24 hours; continues to have fevers with Tmax of 101.0?; stable hemodynamics noted at this time; Surgery consulted for possible IVC filter placement. Exam Narrative: General: somewhat ill appearing female intubated and on mechanical ventilation Heart: normal S1 and S2; no rub Lungs: coarse breath sounds bilaterally Abdomen: soft, nontender, nondistended, positive bowel sounds Extremities: no cyanosis or clubbing; no edema Skin: no rash Objective Data Vital Signs Vital Signs: Vital Signs Temp Pulse Resp BP Pulse Ox O2 Del Method FiO2 01/17/24 14:25 92 91/54 L 01/17/24 14:00 89 01/17/24 13:58 86 138/55 L 01/17/24 13:47 100.3 F H 87 17 148/57 H 100 01/17/24 14:00 100.3 F H 93 14 91/54 L 100 01/17/24 14:03 88 100 Mechanical Ventilation 21 01/17/24 12:00 79 18 100 Mechanical Ventilation 21 01/17/24 12:00 21 01/17/24 08:00 21 01/17/24 12:00 100.7 F H 79 18 111/58 L 100 01/17/24 11:23 75 100 Mechanical Ventilation 21 01/17/24 10:00 100.0 F H 76 13 116/54 L 100 01/17/24 10:00 75 01/17/24 08:00 95 01/17/24 08:00 97 20 100 Mechanical Ventilation 21 01/17/24 08:43 97 01/17/24 08:10 96 100 Mechanical Ventilation 21 01/17/24 08:00 100.2 F H 100 20 140/63 100 01/17/24 06:00 100.4 F H 88 17 116/55 L 100 01/17/24 06:00 88 01/17/24 05:11 96 100 Mechanical Ventilation 21 01/17/24 04:00 21 01/17/24 04:00 Mechanical Ventilation 01/17/24 04:00 100.8 F H 96 22 H 120/53 L 100 01/17/24 04:00 96 01/17/24 03:07 100.9 F H 01/17/24 02:07 101 F H 01/17/24 02:05 91 100 Mechanical Ventilation 01/17/24 02:00 101.0 F H 92 21 H 126/54 L 100 01/17/24 02:00 92 01/17/24 00:00 21 01/17/24 00:00 Mechanical Ventilation 21 01/17/24 00:00 100.9 F H 88 19 133/59 L 100 01/17/24 00:00 88 01/16/24 23:26 87 100 Mechanical Ventilation 01/16/24 22:00 100.7 F H 81 17 128/59 L 100 01/16/24 22:00 81 01/16/24 20:00 100.7 F H 110 H 20 165/72 H 99 01/16/24 20:00 21 01/16/24 20:00 Mechanical Ventilation 21 01/16/24 20:00 110 H 01/16/24 20:07 108 H 100 Mechanical Ventilation 01/16/24 20:04 109 H 01/16/24 18:00 100.5 F H 106 H 100 H 146/63 H 20 L 01/16/24 18:00 106 H 01/16/24 17:08 99 100 Mechanical Ventilation 21 Intake/Output Intake/Output: Intake & Output 10/01/15/24 01/16/24 01/17/24 23:59 23:59 23:59 23:59 Intake Total 1565 2254 2098.8 1390.8 Output Total 1375 1775 1250 125 Balance 190 479 848.8 1265.8 Meds/Results Medications: Active Medications Generic Name Dose Route Start Last Admin Trade Name Freq PRN Reason Stop Dose Admin Acetaminophen 650 mg 01/10/24 08:02 01/17/24 02:07 Acetaminophen 325 Mg Tablet FEED TUBE 650 mg Q6H PRN Administration Mild Pain (1-3) or Fever Amlodipine Besylate 10 mg 01/11/24 14:05 01/17/24 08:44 Amlodipine Besylate 10 Mg Tablet FEED TUBE 10 mg DAILY CARMELA Administration Aspirin 325 mg 01/12/24 16:00 01/17/24 08:43 Aspirin 325 Mg Tablet FEED TUBE 325 mg DAILY@0800 CARMELA Administration Atorvastatin Calcium 40 mg 01/13/24 09:00 01/17/24 08:43 Atorvastatin 40 Mg Tablet FEED TUBE 40 mg DAILY CARMELA Administration Dextrose 12.5 gm 01/07/24 13:18 Dextrose 50% 25 Gm/50 Ml Syringe IV PUSH PRN PRN Hypoglycemia Protocol Epoetin Dane 20,000 units 01/17/24 20:00 01/17/24 15:29 Epoetin Dane 20,000 Units/Ml Vial IV PUSH 01/17/24 20:01 20,000 units ONCE ONE Administration Epoetin Dane-epbx 10,000 units 01/12/24 09:20 01/17/24 08:44 Epoetin Dane-Epbx 10,000 Units/Ml Vial SUB-Q 10,000 units MOWEFR@09 CARMELA Administration Glucagon 1 mg 01/07/24 13:18 Glucagon For Inj 1 Mg Vial IM PRN PRN Hypoglycemia Protocol Glucose 15 gm 01/07/24 13:18 Glucose Oral Gel 15 Gm Of Glucse In 37.5 Gm Tube PO PRN PRN Hypoglycemia Protocol Hydralazine HCl 10 mg 01/12/24 08:00 01/17/24 13:37 Hydralazine 10 Mg Tablet FEED TUBE 10 mg Q6H CARMELA Administration Dextrose 1,000 mls @ 100 mls/hr 01/07/24 13:18 Dextrose 5% 1,000 Ml IVPB PRN PRN Hypoglycemia Protocol Albumin Human 50 mls @ 999 mls/hr 01/07/24 17:11 01/12/24 10:30 Albutein IVPB 02/06/24 17:10 Infused Q10M PRN Infusion HYPOTENSION Levetiracetam 500 mg in 100 mls @ 400 mls/hr 01/07/24 21:00 01/16/24 20:18 Keppra Iv IVPB Infused Q24H CARMELA Infusion Sodium Chloride 250 mls @ 30 mls/hr 01/17/24 08:35 01/17/24 15:24 Normal Saline Iv IV CONT 01/17/24 16:54 30 mls/hr .Q8H20M STA Administration Insulin Aspart 4 - 8 units 01/10/24 07:55 01/17/24 11:57 Insulin Aspart (*Bkc) 100 Units/Ml SUB-Q 5 units Q4H CARMELA Administration Protocol Insulin Glargine 60 units 01/17/24 09:00 01/17/24 08:44 Insulin Glargine (*Bkc) 100 Units/Ml SUB-Q 60 units Q12H CARMELA Administration Labetalol HCl 20 mg 01/08/24 14:39 01/15/24 20:29 Labetalol Hcl Inj 100 Mg/20 Ml Vial IV PUSH 20 mg Q4H PRN Administration Hypertension Metoprolol Tartrate 100 mg 01/16/24 09:00 01/17/24 08:43 Metoprolol Tartrate 50 Mg Tab FEED TUBE 100 mg Q12HR CARMELA Administration Multi-Ingred Cream/Lotion/Oil/Oint 1 applic 01/07/24 21:00 01/17/24 08:44 Mineral Oil/White Petrolatum Ointment EACH EYE 1 applic Q12HR CARMELA Administration Pantoprazole Sodium 40 mg 01/07/24 21:00 01/17/24 08:44 Pantoprazole Sodium Iv 40 Mg Vial IV PUSH 40 mg Q12HR CARMELA Administration Radiology Results: ITS Impressions Abdomen/Pelvis CT 01/07/24 16:52 IMPRESSION: No acute abdominopelvic process. Specifically, there is no CT evidence of bowel obstruction. No definite evidence of renal injury, noting that low-grade renal injury as can be difficult to detect without contrast. Renal Ultrasound 01/08/24 10:47 IMPRESSION: 1. Normal kidney sizes. No hydronephrosis. Chest/Abdomen/Pelvis CT 01/12/24 15:08 IMPRESSION: Interval enlargement of the liver, when compared with previous examination. Flattening of the inferior vena cava suggesting severe hypovolemia. Interval development of basilar atelectasis and trace bilateral pleural effusions. No additional findings which represents a change from prior examination per formed 01/07/2024. Supportive devices are in good position. Redemonstration of multiple stones within the gallbladder which is not distended. Head CT 01/12/24 15:31 IMPRESSION: 1. 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 2. Large distribution of chronic encephalomalacia in the expected distribution of left middle cerebral artery. Abdomen Ultrasound 01/13/24 09:31 IMPRESSION: 1. Cholelithiasis. 2. Normal liver Doppler. Arterial/Peripheral Duplex 01/13/24 09:31 IMPRESSION: 1. Cholelithiasis. 2. Normal liver Doppler. Venous Doppler Study 01/15/24 17:14 IMPRESSION: 1. Deep vein thrombosis involving left common femoral vein. ADDENDUM: 01/15/24 2352 I called this result to Apurva Mclean. Abdomen X-Ray 01/16/24 06:03 Impression: NG tube in satisfactory position. Chest X-Ray 01/17/24 05:53 Impression: Stable probable left lower lobe atelectasis or pneumonia. Stable support tubes. Labs Labs: Laboratory Tests 01/17/24 08:01 01/17/24 06:03 Hgb 6.7 L* Hct 22.5 L Calcium 8.5 Phosphorus 2.5 Magnesium 1.9 Total Bilirubin 0.3 AST 40 H ALT 21 Alkaline Phosphatase 86 Ammonia < 9 L Total Protein 6.0 L Albumin 2.8 L Microbiology 01/11/24 08:14 Blood Blood Culture - Final 01/11/24 07:52 Blood Blood Culture - Final
[2024-01-17] MEDS: SODIUM CHLORIDE 0.9% IV 250 ML 30 ML IV CONT (15:24)
[2024-01-17] MEDS: EPOETIN ALFA 20,000 UNITS/ML VIAL 20000 UNITS IV PUSH (15:29)
[2024-01-17 16:39] LABS: Glucose Point of Care 169 mg/dl (65-105)
[2024-01-17] MEDS: HEPARIN SODIUM 1,000 UNITS/ML VIAL 4000 UNITS IV PUSH (17:31)
[2024-01-17] MEDS: CHLORHEXIDINE GLUCONATE 4% SOL 120 ML BTL 1 APPLIC TOPICAL (18:42)
--- NOTE | 2024-01-17 19:37 | WPDPN ---
Progress Note: A&P Assessment and Plan (1) Deep vein thrombosis of left lower extremity: Code(s): I82.402 - Acute embolism and thrombosis of unspecified deep veins of left lower extremity Status: Acute Assessment and Plan: Critically ill female in the intensive care unit with continued respiratory failure need for ventilator support. She is also getting hemodialysis for acute renal failure. She was found to have a left lower extremity DVT and started on heparin drip. However she has decreasing hemoglobins and suspected she may have undiagnosed source of bleeding and so the heparin drip will need to be stopped. I have been asked to place a IVC filter to try to prevent saddle embolus after the heparin drip has been stopped. She is not on any pressors and can be transferred to the cardiac brick and blocker aid labor for placement of the IVC filter under fluoroscopy. Will stop her tube feeds at midnight. Bilateral groin regions will be washed with Hibiclens x2. We will attempt to place the IVC filter tomorrow in the brick and blocker aid labor. Consent from the family. Subjective Date/time seen: 01/17/24 19:37 Interval history: Patient was initially seen by me in consultation when she was admitted to the intensive care unit on January 07, 2024 in [place] from likely urosepsis. She was intubated due to respiratory failure. There was a question whether she had ischemic bowel causing her severe metabolic acidosis and sepsis. This did not return to vendor to be the case and she has stabilized but remains on the ventilator. 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 She has a left lower extremity DVT which was diagnosed 3 days ago and heparin drip was initially started. Due to the drop in hemoglobin and possibility of bleeding the heparin drip will need to be stopped. I have been asked to place a IVC filter. Exam Skin: Other: Bilateral lower extremity groin regions have no ulcerating wounds. There is nystatin powder noted in the skin creases of the bilateral groins. No obvious cellulitis is seen. She has 2+ palpable bilateral common femoral pulses. Both lower extremities are well perfused. Objective Data Vital Signs Vital Signs: Vital Signs - 24 hr 01/16/24 20:04 01/16/24 20:07 01/16/24 20:00 Temperature Pulse Rate 109 H 108 H 110 H Respiratory Rate Blood Pressure Pulse Oximetry 100 Oxygen Delivery Mechanical Ventilation Fraction of Inspired Oxygen 21 01/16/24 20:00 01/16/24 20:00 01/16/24 20:00 Temperature 38.2 C H Pulse Rate 110 H Respiratory Rate 20 Blood Pressure 165/72 H Pulse Oximetry 99 Oxygen Delivery Mechanical Ventilation Fraction of Inspired Oxygen 21 21 01/16/24 22:00 01/16/24 22:00 01/16/24 23:26 Temperature 38.2 C H Pulse Rate 81 81 87 Respiratory Rate 17 Blood Pressure 128/59 L Pulse Oximetry 100 100 Oxygen Delivery Mechanical Ventilation Fraction of Inspired Oxygen 21 01/17/24 00:00 01/17/24 00:00 01/17/24 00:00 Temperature 38.3 C H Pulse Rate 88 88 Respiratory Rate 19 Blood Pressure 133/59 L Pulse Oximetry 100 Oxygen Delivery Mechanical Ventilation Fraction of Inspired Oxygen 21 01/17/24 00:00 01/17/24 02:00 01/17/24 02:00 Temperature 38.3 C H Pulse Rate 92 92 Respiratory Rate 21 H Blood Pressure 126/54 L Pulse Oximetry 100 Oxygen Delivery Fraction of Inspired Oxygen 21 01/17/24 02:05 01/17/24 02:07 01/17/24 03:07 Temperature 38.3 C H 38.3 C H Pulse Rate 91 Respiratory Rate Blood Pressure Pulse Oximetry 100 Oxygen Delivery Mechanical Ventilation Fraction of Inspired Oxygen 21 01/17/24 04:00 01/17/24 04:00 01/17/24 04:00 Temperature 38.2 C H Pulse Rate 96 96 Respiratory Rate 22 H Blood Pressure 120/53 L Pulse Oximetry 100 Oxygen Delivery Mechanical Ventilation Fraction of Inspired Oxygen 21 01/17/24 04:00 01/17/24 05:11 01/17/24 06:00 Temperature Pulse Rate 96 88 Respiratory Rate Blood Pressure Pulse Oximetry 100 Oxygen Delivery Mechanical Ventilation Fraction of Inspired Oxygen 21 21 01/17/24 06:00 01/17/24 08:00 01/17/24 08:10 Temperature 38.0 C H 37.9 C H Pulse Rate 88 100 96 Respiratory Rate 17 20 Blood Pressure 116/55 L 140/63 Pulse Oximetry 100 100 100 Oxygen Delivery Mechanical Ventilation Fraction of Inspired Oxygen 21 01/17/24 08:43 01/17/24 08:00 01/17/24 08:00 Temperature Pulse Rate 97 97 95 Respiratory Rate 20 Blood Pressure Pulse Oximetry 100 Oxygen Delivery Mechanical Ventilation Fraction of Inspired Oxygen 21 01/17/24 10:00 01/17/24 10:00 01/17/24 11:23 Temperature 37.8 C H Pulse Rate 75 76 75 Respiratory Rate 13 Blood Pressure 116/54 L Pulse Oximetry 100 100 Oxygen Delivery Mechanical Ventilation Fraction of Inspired Oxygen 21 01/17/24 12:00 01/17/24 08:00 01/17/24 12:00 Temperature 38.2 C H Pulse Rate 79 Respiratory Rate 18 Blood Pressure 111/58 L Pulse Oximetry 100 Oxygen Delivery Fraction of Inspired Oxygen 21 21 01/17/24 12:00 01/17/24 14:03 01/17/24 14:00 Temperature 37.9 C H Pulse Rate 79 88 93 Respiratory Rate 18 14 Blood Pressure 91/54 L Pulse Oximetry 100 100 100 Oxygen Delivery Mechanical Ventilation Mechanical Ventilation Fraction of Inspired Oxygen 21 21 01/17/24 13:47 01/17/24 13:58 01/17/24 14:44 Temperature 37.9 C H 38.0 C H Pulse Rate 87 86 87 Respiratory Rate 17 19 Blood Pressure 148/57 H 138/55 L 109/59 L Pulse Oximetry 100 100 Oxygen Delivery Fraction of Inspired Oxygen 01/17/24 14:45 01/17/24 12:00 01/17/24 14:00 Temperature Pulse Rate 85 76 89 Respiratory Rate Blood Pressure 109/59 L Pulse Oximetry Oxygen Delivery Fraction of Inspired Oxygen 01/17/24 14:15 01/17/24 14:30 01/17/24 15:01 Temperature 37.9 C H Pulse Rate 92 89 80 Respiratory Rate 12 Blood Pressure 91/54 L 95/54 L 111/62 Pulse Oximetry 100 Oxygen Delivery Fraction of Inspired Oxygen 01/17/24 15:00 01/17/24 15:15 01/17/24 15:15 Temperature 37.7 C H Pulse Rate 79 78 79 Respiratory Rate 14 Blood Pressure 111/62 135/61 135/61 Pulse Oximetry 100 Oxygen Delivery Fraction of Inspired Oxygen 01/17/24 15:30 01/17/24 15:45 01/17/24 16:30 Temperature Pulse Rate 79 86 83 Respiratory Rate Blood Pressure 123/62 124/78 152/70 H Pulse Oximetry Oxygen Delivery Fraction of Inspired Oxygen 01/17/24 16:45 01/17/24 17:00 01/17/24 16:00 Temperature 37.5 C Pulse Rate 83 85 82 Respiratory Rate 14 Blood Pressure 112/68 145/75 H 120/64 Pulse Oximetry 100 Oxygen Delivery Fraction of Inspired Oxygen 01/17/24 15:55 01/17/24 16:16 01/17/24 17:32 Temperature Pulse Rate 84 85 87 Respiratory Rate Blood Pressure 125/66 121/62 Pulse Oximetry 100 Oxygen Delivery Mechanical Ventilation Fraction of Inspired Oxygen 21 01/17/24 17:16 01/17/24 17:26 01/17/24 16:00 Temperature 37.3 C Pulse Rate 76 87 Respiratory Rate 12 Blood Pressure 134/80 148/66 H Pulse Oximetry 100 Oxygen Delivery Fraction of Inspired Oxygen 21 01/17/24 18:00 01/17/24 16:00 01/17/24 16:00 Temperature 37.7 C H Pulse Rate 89 89 82 Respiratory Rate 14 14 Blood Pressure 118/66 Pulse Oximetry 100 100 Oxygen Delivery Mechanical Ventilation Fraction of Inspired Oxygen 21 01/17/24 18:00 Temperature Pulse Rate 88 Respiratory Rate Blood Pressure Pulse Oximetry Oxygen Delivery Fraction of Inspired Oxygen Intake/Output Intake/Output: Intake & Output 01/14/24 01/15/24 01/16/24 01/17/24 23:59 23:59 23:59 23:59 Intake Total 1565 2254 2098.8 2200.8 Output Total 1375 1775 1250 925 Balance 190 479 848.8 1275.8 Meds/Results Medications: Active Medications Generic Name Dose Route Start Last Admin Trade Name Freq PRN Reason Stop Dose Admin Acetaminophen 650 mg 01/10/24 08:02 01/17/24 02:07 Acetaminophen 325 Mg Tablet FEED TUBE 650 mg Q6H PRN Administration Mild Pain (1-3) or Fever Amlodipine Besylate 10 mg 01/11/24 14:05 01/17/24 08:44 Amlodipine Besylate 10 Mg Tablet FEED TUBE 10 mg DAILY CARMELA Administration Aspirin 325 mg 01/12/24 16:00 01/17/24 08:43 Aspirin 325 Mg Tablet FEED TUBE 325 mg DAILY@0800 CARMELA Administration Atorvastatin Calcium 40 mg 01/13/24 09:00 01/17/24 08:43 Atorvastatin 40 Mg Tablet FEED TUBE 40 mg DAILY CARMELA Administration Dextrose 12.5 gm 01/07/24 13:18 Dextrose 50% 25 Gm/50 Ml Syringe IV PUSH PRN PRN Hypoglycemia Protocol Epoetin Dane 20,000 units 01/17/24 20:00 01/17/24 15:29 Epoetin Dane 20,000 Units/Ml Vial IV PUSH 01/17/24 20:01 20,000 units ONCE ONE Administration Epoetin Dane-epbx 10,000 units 01/12/24 09:20 01/17/24 08:44 Epoetin Dane-Epbx 10,000 Units/Ml Vial SUB-Q 10,000 units MOWEFR@09 CARMELA Administration Glucagon 1 mg 01/07/24 13:18 Glucagon For Inj 1 Mg Vial IM PRN PRN Hypoglycemia Protocol Glucose 15 gm 01/07/24 13:18 Glucose Oral Gel 15 Gm Of Glucse In 37.5 Gm Tube PO PRN PRN Hypoglycemia Protocol Hydralazine HCl 10 mg 01/12/24 08:00 01/17/24 13:37 Hydralazine 10 Mg Tablet FEED TUBE 10 mg Q6H CARMELA Administration Dextrose 1,000 mls @ 100 mls/hr 01/07/24 13:18 Dextrose 5% 1,000 Ml IVPB PRN PRN Hypoglycemia Protocol Albumin Human 50 mls @ 999 mls/hr 01/07/24 17:11 01/12/24 10:30 Albutein IVPB 02/06/24 17:10 Infused Q10M PRN Infusion HYPOTENSION Levetiracetam 500 mg in 100 mls @ 400 mls/hr 01/07/24 21:00 01/16/24 20:18 Keppra Iv IVPB Infused Q24H CARMELA Infusion Insulin Aspart 4 - 8 units 01/10/24 07:55 01/17/24 18:28 Insulin Aspart (*Bkc) 100 Units/Ml SUB-Q Not Given Q4H [facility] Protocol Insulin Glargine 60 units 01/17/24 09:00 01/17/24 08:44 Insulin Glargine (*Bkc) 100 Units/Ml SUB-Q 60 units Q12H CARMELA Administration Labetalol HCl 20 mg 01/08/24 14:39 01/15/24 20:29 Labetalol Hcl Inj 100 Mg/20 Ml Vial IV PUSH 20 mg Q4H PRN Administration Hypertension Metoprolol Tartrate 100 mg 01/16/24 09:00 01/17/24 08:43 Metoprolol Tartrate 50 Mg Tab FEED TUBE 100 mg Q12HR CARMELA Administration Multi-Ingred Cream/Lotion/Oil/Oint 1 applic 01/07/24 21:00 01/17/24 08:44 Mineral Oil/White Petrolatum Ointment EACH EYE 1 applic Q12HR CARMELA Administration Pantoprazole Sodium 40 mg 01/07/24 21:00 01/17/24 08:44 Pantoprazole Sodium Iv 40 Mg Vial IV PUSH 40 mg Q12HR CARMELA Administration Radiology Results: ITS Impressions Abdomen/Pelvis CT 01/07/24 16:52 IMPRESSION: No acute abdominopelvic process. Specifically, there is no CT evidence of bowel obstruction. No definite evidence of renal injury, noting that low-grade renal injury as can be difficult to detect without contrast. Renal Ultrasound 01/08/24 10:47 IMPRESSION: 1. Normal kidney sizes. No hydronephrosis. Chest/Abdomen/Pelvis CT 01/12/24 15:08 IMPRESSION: Interval enlargement of the liver, when compared with previous examination. Flattening of the inferior vena cava suggesting severe hypovolemia. Interval development of basilar atelectasis and trace bilateral pleural effusions. No additional findings which represents a change from prior examination performed 01/07/2024. Supportive devices are in good position. Redemonstration of multiple stones within the gallbladder which is not distended. Head CT 01/12/24 15:31 IMPRESSION: 1. 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 2. Large distribution of chronic encephalomalacia in the expected distribution of left middle cerebral artery. Abdomen Ultrasound 01/13/24 09:31 IMPRESSION: 1. Cholelithiasis. 2. Normal liver Doppler. Arterial/Peripheral Duplex 01/13/24 09:31 IMPRESSION: 1. Cholelithiasis. 2. Normal liver Doppler. Venous Doppler Study 01/15/24 17:14 IMPRESSION: 1. Deep vein thrombosis involving left common femoral vein. ADDENDUM: 01/15/24 [id number] I called this result to Apurva Mclean. Abdomen X-Ray 01/16/24 06:03 Impression: NG tube in satisfactory position. Chest X-Ray 01/17/24 05:53 Impression: Stable probable left lower lobe atelectasis or pneumonia. Stable support tubes. Labs Labs: Laboratory Results - last 24 hr 01/08/24 01/16/24 01/16/24 00:26 19:51 23:57 WBC RBC Hgb Hct MCV MCH MCHC RDW Plt Count MPV Immature Gran % (Auto) Neut % (Auto) Lymph % (Auto) Green % (Auto) Eos % (Auto) Baso % (Auto) Lymph # (Auto) Green # (Auto) Eos # (Auto) Baso # (Auto) Abs Immat Gran (auto) Absolute Neuts (auto) Absolute Nucleated RBC Nucleated RBC % Platelet Estimate Polychromasia Hypochromasia Anisocytosis Schistocytes APTT Puncture Site ABG pH ABG pCO2 ABG pO2 ABG PO2/FiO2 Ratio ABG HCO3 ABG O2 Saturation ABG O2 Content ABG Base Excess A-a Gradient Oxyhemoglobin Carboxyhemoglobin Methemoglobin Reduced Hemoglobin Total Hemoglobin O2 Delivery Device O2 Liters/Min Minute Volume Vent Rate Vent Mode FiO2 Tidal Volume PEEP Peak Inspir Pressure Pressure Support Sodium Potassium Chloride Carbon Dioxide Anion Gap BUN Creatinine Estim Creat Clear Calc Estimated GFR Glucose POC Capillary Glucose 217 H 203 H Calcium Phosphorus Magnesium Total Bilirubin AST ALT Alkaline Phosphatase Ammonia Total Protein Albumin Stl Occult Blood (IFOB) Blood Type Antibody Screen Crossmatch See Detail 01/17/24 01/17/24 01/17/24 00:07 04:15 05:14 WBC RBC Hgb Hct MCV MCH MCHC RDW Plt Count MPV Immature Gran % (Auto) Neut % (Auto) Lymph % (Auto) Green % (Auto) Eos % (Auto) Baso % (Auto) Lymph # (Auto) Green # (Auto) Eos # (Auto) Baso # (Auto) Abs Immat Gran (auto) Absolute Neuts (auto) Absolute Nucleated RBC Nucleated RBC % Platelet Estimate Polychromasia Hypochromasia Anisocytosis Schistocytes APTT 91.0 H Puncture Site Left radial ABG pH 7.527 H* ABG pCO2 35.0 ABG pO2 86.4 ABG PO2/FiO2 Ratio 4.11 ABG HCO3 28.4 H ABG O2 Saturation 97.4 ABG O2 Content 10.6 L ABG Base Excess 5.3 A-a Gradient 21.4 Oxyhemoglobin 96.6 Carboxyhemoglobin 0.6 Methemoglobin 0.1 Reduced Hemoglobin 2.7 Total Hemoglobin 7.7 L* O2 Delivery Device Ventilator O2 Liters/Min Not Reportable Minute Volume Not Reportable Vent Rate 14 Vent Mode Cmv FiO2 21 Tidal Volume 300 PEEP 5 Peak Inspir Pressure Not Reportable Pressure Support Not Reportable Sodium Potassium Chloride Carbon Dioxide Anion Gap BUN Creatinine Estim Creat Clear Calc Estimated GFR Glucose POC Capillary Glucose 212 H Calcium Phosphorus Magnesium Total Bilirubin AST ALT Alkaline Phosphatase Ammonia Total Protein Albumin Stl Occult Blood (IFOB) Blood Type Antibody Screen Crossmatch 01/17/24 01/17/24 01/17/24 06:03 07:55 08:01 WBC 9.2 10.4 H RBC 2.27 L 2.33 L Hgb 6.7 L* 6.9 L* Hct 22.5 L 23.0 L MCV 99.1 98.7 MCH 29.5 29.6 MCHC 29.8 L 30.0 L RDW 14.6 H 14.6 H Plt Count 384 H 397 H MPV 11.2 H 11.7 H Immature Gran % (Auto) 3.1 H 4.0 H Neut % (Auto) 63.4 64.6 Lymph % (Auto) 20.6 17.6 L Green % (Auto) 9.4 H 10.6 H Eos % (Auto) 3.0 2.8 Baso % (Auto) 0.5 0.4 Lymph # (Auto) 1.90 1.82 Green # (Auto) 0.9 H 1.1 H Eos # (Auto) 0.3 0.3 Baso # (Auto) 0.1 0.0 Abs Immat Gran (auto) 0.29 H 0.41 H Absolute Neuts (auto) 5.8 6.7 Absolute Nucleated RBC 0.040 H 0.040 H Nucleated RBC % 0.4 H 0.4 H Platelet Estimate Increased Polychromasia 1+ Hypochromasia 1+ Anisocytosis 2+ Schistocytes None seen APTT 81.4 H Puncture Site ABG pH ABG pCO2 ABG pO2 ABG PO2/FiO2 Ratio ABG HCO3 ABG O2 Saturation ABG O2 Content ABG Base Excess A-a Gradient Oxyhemoglobin Carboxyhemoglobin Methemoglobin Reduced Hemoglobin Total Hemoglobin O2 Delivery Device O2 Liters/Min Minute Volume Vent Rate Vent Mode FiO2 Tidal Volume PEEP Peak Inspir Pressure Pressure Support Sodium 143 Potassium 3.4 Chloride 107 Carbon Dioxide 28 Anion Gap 8 BUN 69 H Creatinine 3.10 H Estim Creat Clear Calc 17 Estimated GFR 15 L Glucose 209 H POC Capillary Glucose 198 H Calcium 8.5 Phosphorus 2.5 Magnesium 1.9 Total Bilirubin 0.3 AST 40 H ALT 21 Alkaline Phosphatase 86 Ammonia < 9 L Total Protein 6.0 L Albumin 2.8 L Stl Occult Blood (IFOB) Blood Type Antibody Screen Crossmatch 01/17/24 01/17/24 01/17/24 08:53 11:39 12:28 WBC RBC Hgb Hct MCV MCH MCHC RDW Plt Count MPV Immature Gran % (Auto) Neut % (Auto) Lymph % (Auto) Green % (Auto) Eos % (Auto) Baso % (Auto) Lymph # (Auto) Green # (Auto) Eos # (Auto) Baso # (Auto) Abs Immat Gran (auto) Absolute Neuts (auto) Absolute Nucleated RBC Nucleated RBC % Platelet Estimate Polychromasia Hypochromasia Anisocytosis Schistocytes APTT Puncture Site ABG pH ABG pCO2 ABG pO2 ABG PO2/FiO2 Ratio ABG HCO3 ABG O2 Saturation ABG O2 Content ABG Base Excess A-a Gradient Oxyhemoglobin Carboxyhemoglobin Methemoglobin Reduced Hemoglobin Total Hemoglobin O2 Delivery Device O2 Liters/Min Minute Volume Vent Rate Vent Mode FiO2 Tidal Volume PEEP Peak Inspir Pressure Pressure Support Sodium Potassium Chloride Carbon Dioxide Anion Gap BUN Creatinine Estim Creat Clear Calc Estimated GFR Glucose POC Capillary Glucose 264 H Calcium Phosphorus Magnesium Total Bilirubin AST ALT Alkaline Phosphatase Ammonia Total Protein Albumin Stl Occult Blood (IFOB) Positive H Blood Type O Positive Antibody Screen Negative Crossmatch See Detail 01/17/24 16:36 WBC RBC Hgb Hct MCV MCH MCHC RDW Plt Count MPV Immature Gran % (Auto) Neut % (Auto) Lymph % (Auto) Green % (Auto) Eos % (Auto) Baso % (Auto) Lymph # (Auto) Green # (Auto) Eos # (Auto) Baso # (Auto) Abs Immat Gran (auto) Absolute Neuts (auto) Absolute Nucleated RBC Nucleated RBC % Platelet Estimate Polychromasia Hypochromasia Anisocytosis Schistocytes APTT Puncture Site ABG pH ABG pCO2 ABG pO2 ABG PO2/FiO2 Ratio ABG HCO3 ABG O2 Saturation ABG O2 Content ABG Base Excess A-a Gradient Oxyhemoglobin Carboxyhemoglobin Methemoglobin Reduced Hemoglobin Total Hemoglobin O2 Delivery Device O2 Liters/Min Minute Volume Vent Rate Vent Mode FiO2 Tidal Volume PEEP Peak Inspir Pressure Pressure Support Sodium Potassium Chloride Carbon Dioxide Anion Gap BUN Creatinine Estim Creat Clear Calc Estimated GFR Glucose POC Capillary Glucose 169 H Calcium Phosphorus Magnesium Total Bilirubin AST ALT Alkaline Phosphatase Ammonia Total Protein Albumin Stl Occult Blood (IFOB) Blood Type Antibody Screen Crossmatch
[2024-01-17 20:03] LABS: Glucose Point of Care 216 mg/dl (65-105)
--- NOTE | 2024-01-17 20:14 | PC.NURSE ---
Spoke with Dr. Sinha regarding NPO at midnight at 60 units lantus ordered tonight. Give 30 units Lantus x1, Hold 60 units tonight and in AM
[2024-01-17] MEDS: INSULIN GLARGINE (*BKC) 100 UNITS/ML 30 UNITS SUB-Q (20:45)
[2024-01-17] MEDS: levETIRAcetam 500MG/NACL 100ML 500 MG/100 ML BAG 400 MG IVPB (20:45)
[2024-01-18] VITALS (50 sets, daily range): BP systolic 102–181; BP diastolic 55–88; PULSE 79–110; RESP 13–20; TEMP 37–38.4; O2SAT 98–100
[2024-01-18 00:32] LABS: Glucose Point of Care 242 mg/dl (65-105)
[2024-01-18] MEDS: INSULIN ASPART (*BKC) 100 UNITS/ML SUB-Q ×4 (00:32→23:37)
[2024-01-18] MEDS: hydrALAZINE 10 MG TABLET PO (02:26)
[2024-01-18] MEDS: LABETALOL HCL INJ 100 MG/20 ML VIAL 20 MG IV PUSH (04:59)
[2024-01-18 05:00] LABS: Glucose Point of Care 161 mg/dl (65-105)
[2024-01-18] MEDS: ACETAMINOPHEN 325 MG TABLET 650 MG FEED TUBE ×2 (05:09→18:39)
[2024-01-18 05:36] LABS: Hematocrit 27.4 % (37.0-47.0); Hemoglobin 8.4 g/dL (12.0-15.0); Mean Corpuscular HGB Conc 30.7 g/dl (32-36); Mean Corpuscular Hemoglobin 28.7 pg (26-34); Mean Corpuscular Volume 93.5 fl (80-100); Mean Platelet Volume 11.9 fl (7.4-10.4); Platelet Count Result 361 k/mm3 (150-375); Red Blood Count 2.93 M/mm3 (4.2-5.4); Red Cell Distribution Width 16.8 % (11.5-14.5); White Blood Count 12.9 K/mm3 (4.5-10.0)
[2024-01-18 05:49] LABS: Partial Thromboplastin Time 32.2 Seconds (22.3-36.8)
[2024-01-18 05:51] LABS: Alanine Aminotransferase 22 U/L (6-35); Alkaline Phosphatase 100 U/L (38-126); Anion Gap 5 mmol/L (4-12); Aspartate Amino Transferase 39 U/L (14-36); Bilirubin,Total 0.4 mg/dL (0.2-1.3); Blood Urea Nitrogen 46 mg/dL (7-17); Calcium 8.5 mg/dL (8.4-10.2); Carbon Dioxide 28 mmol/L (22-30); Chloride 107 mmol/L (98-107); Estimated CRCL calculation 22 ml/min; Estimated Glomerular Filt Rate 20; Glucose 183 mg/dL (65-110); Phosphorus 2.6 mg/dL (2.5-4.5); Potassium 3.7 mmol/L (3.4-5.0); Sodium 140 mmol/L (137-145)
[2024-01-18 06:21] LABS: Alveolar/Arterial O2 Gradient 20.4 mmHg; Base Excess ABG 3.3 mEq/l (+/-2.0); Carboxyhemoglobin 0.4 % THb (0-2.0); Fractional Inspired Oxygen 21 %; HCO3 ABG 25.7 mEq/l (22.0-26.0); Methemoglobin ABG 0.3 %THb (0-1.5); Oxygen Saturation ABG 97.9 % (95.0-100.0); PCO2 ABG 31.1 mmHg (35.0-45.0); PO2 ABG 92.1 mmHg (80.0-100.0); PO2 FiO2 Ratio Arterial Blood 4.39 %; Reduced Hemoglobin 2.3 %THb (0-5.0); Total Hemoglobin 9.4 g/dL (12.0-18.0)
[2024-01-18 06:24] LABS: Device VENTILATOR; Modified Allen's Test Pass; Site Drawn LEFT BRACHIAL; pH ABG 7.535 (7.350-7.450)
[2024-01-18 06:25] LABS: Arterial Blood Gas PEEP 5 cmH2O; Arterial Blood Gas Vent Mode ASV
[2024-01-18 08:01] LABS: Glucose Point of Care 179 mg/dl (65-105)
[2024-01-18] MEDS: MINERAL OIL/WHITE PETROLATUM OINTMENT 1 APPLIC EACH EYE ×2 (08:15→20:11)
[2024-01-18] MEDS: ATORVASTATIN 40 MG TABLET FEED TUBE (08:15)
[2024-01-18] MEDS: PANTOPRAZOLE SODIUM IV 40 MG VIAL IV PUSH ×2 (08:15→20:11)
--- NOTE | 2024-01-18 08:18 | WPDINTPN ---
Progress Note: A&P Assessment and Plan (1) Stroke: Code(s): I63.9 - Cerebral infarction, unspecified Status: Acute Assessment and Plan: Patient presented with altered mental status but at that time patient was respiratory failure acute renal failure acidosis and sepsis. CT scan on presentation showed only old stroke and encephalomalacia Since then patient has not woken up despite holding sedation for multiple days and dialysis. 01/[address] was done which showed. 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 These are likely secondary to hypotension Echo did not show any thrombus or ASD Continue aspirin and statin Neurology following EEG 01/12 - This is an abnormal EEG due to presence of moderate diffuse background slowing suggested generalized cephalopathy. No significant change in neurological status (2) Encephalopathy: Code(s): G93.40 - Encephalopathy, unspecified Status: Acute Assessment and Plan: Patient presented with encephalopathy, altered mental status, delirium, confusion -most likely related to uremia, infection, severe acidosis and baseline flow malacia from past stroke TSH and ammonia normal Patient has been off sedation since 01/09/2024. Still not responsive.. Will continue hold sedatives. EEG as above Patient was dialyzed 01/11 to help with drug removal. Minimal improved Encephalopathy likely secondary to strokes. See above. Neurology following -patient has been off sedation since 01/09/2024, has not woken up -01/16: Ammonia levels are normal 01/11: Repeat CT scan of the brain IMPRESSION: 1. 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 2. Large distribution of chronic encephalomalacia in the expected distribution of left middle cerebral artery. 01/06: CT brain on admission IMPRESSION: 1. No acute intracranial process. 2. 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 3. Additional more diffuse likely age-related mild to moderate diffuse volume loss and mild scattered white matter hypoattenuation consistent with chronic small vessel ischemic disease. (3) Acute respiratory failure: Code(s): J96.00 - Acute respiratory failure, unspecified whether with hypoxia or hypercapnia Status: Acute Assessment and Plan: Patient had an episode of emesis in the ER, given her altered mental status encephalopathy, risk of aspiration with impending respiratory failure patient was intubated on 01/06/2025 -currently on CMV mode of ventilation, peep of 5, 21% FiO2 -ABG reviewed and currently on vent rate to 14 and tidal volume to 300 -patient tolerated ASV mode of ventilation, she was placed back on CMV mode since she was going for the IVC procedure -chest x-ray reviewed -sedation is on hold. -weaning will depend on improvement in mental status. (4) Acute kidney failure: Code(s): N17.9 - Acute kidney failure, unspecified Status: Acute Assessment and Plan: On chronic kidney injury, unknown cause, CT of the abdomen and pelvis did not show any hydronephrosis or urinary obstruction -significant lactic acidosis and metabolic acidosis -patient has a history of diabetes, hypertension which is likely the cause of chronic kidney disease -patient on lisinopril hydrochlorothiazide and metformin at home -patient was given a total of 3 L IV fluid bolus, 1 L in the ER and 2 L in the ICU -sodium bicarb IV pushes x4 in the ICU -patient was started on sodium bicarb infusion after discussing with Nephrology, which her was discontinued once hemodialysis was started -patient was started on hemodialysis and was dialyzed x 3 days -patient continues to have decent urine output - 01/11 patient was dialyzed again 1 L fluid was removed -continue to monitor urine output, electrolytes and renal function -01/16: worsening creatinine, increased edema, decreased urine output. Discussed with Nephrology, patient will dialyzed (5) Metabolic acidosis: Code(s): E87.20 - Acidosis, unspecified Status: Acute Assessment and Plan: RESOLVED Patient presented with significant metabolic acidosis and lactic acidosis. This could be combination of septic shock, acute kidney injury but also a possibility of metformin toxicity Patient received hemodialysis and IV bicarb. Acidosis has resolved. Further dialysis per Nephrology (6) Septic shock: Code(s): A41.9 - Sepsis, unspecified organism; R65.21 - Severe sepsis with septic shock Status: Acute Assessment and Plan: RESOLVED Patient hypotensive on presentation Patient was given IV fluid bolus followed by maintenance IV fluids -lactic acid has improved -Levophed weaned off -off IV fluids -source appears to be UTI. Urine and blood cultures are negative till now, STATUS POST CEFTRIAXONE -status post stress dose steroids - 01/10 continues to have fever although other markers of infection are improved as normal WBC. 01/10: Repeat blood cultures are negative x2 Clark catheter change 01/11 Minimal respiratory secretions, sputum cultures growing yeast which is likely a colonization Change Rocephin to cefepime and vancomycin 01/14: Patient continues to have low-grade fever but overall fever curve is down. White count is normal. CT scan of chest and pelvis does not show any area suggestive of infection. Clark catheter was changed. Procalcitonin level is also on the lower side. Continue cefepime but will discontinue vancomycin at this time. Cultures are negative till now. -lipase was within normal limits -01/15/2024: lower extremity venous Dopplers: Left common femoral vein DVT -01/14: patient was started on heparin infusion OFF all abx (7) Diastolic dysfunction: Code(s): I51.89 - Other ill-defined heart diseases Status: Acute Assessment and Plan: Echo 01/11 Summary 1. Left ventricular systolic function is normal, estimated at 60-65%. 2. There is moderately increased left ventricular wall thickness. 3. Intact interatrial septum visualized by agitated saline imaging. 4. There is mild aortic valve calcification. 5. There is mild aortic valve stenosis with a peak velocity of 190 cm/s,mean gradient of 8 mmHg, and aortic valve area of 1.8 cm2. 6. There is mild tricuspid valve regurgitation. 7. Mild pulmonary hypertension, estimated pulmonary arterial systolicpressure is 46 mmHg. (8) Insulin dependent diabetes mellitus: Status: Chronic Assessment and Plan: Continue sliding scale insulin Accu-Cheks Lantus was increased and will dose b.i.d. (hold a.m. Lantus dose as patient is NPO for the procedure) (9) Right hemiparesis: Code(s): G81.91 - Hemiplegia, unspecified affecting right dominant side Status: Acute Assessment and Plan: History of left-sided cerebral hemisphere and CVA, residual mild aphasia and right-sided weakness (10) Seizures: Code(s): R56.9 - Unspecified convulsions Status: Acute Assessment and Plan: Patient has a history of seizures, on p.o. Keppra 500 mg p.o. q.12 hours Continue Keppra IV 500 mg IV q.24 (discuss with pharmacist) EEG negative for any seizure-like activity (11) Hypertension: Code(s): I10 - Essential (primary) hypertension Status: Acute Assessment and Plan: Blood pressures have been labile, will hold metoprolol, hydralazine and amlodipine for now -patient has p.r.n. labetalol (12) Anemia: Code(s): D64.9 - Anemia, unspecified Status: Acute Assessment and Plan: 01/16: Patient has been on heparin infusion for DVT in the right common femoral vein. Dropped hemoglobin this morning to 6.7 from 7.8. - heparin infusion Discontinued -stool for Hemoccult was Negative -surgery to place for IVC filter placement today Plan DVT prophylaxis: Hold heparin infusion due to anemia Stress ulcer prophylaxis: Protonix IV q.12 hours Nutrition: Continue tube feeds Code Status: DNR Critical Care Time Spent: 32 minutes Will update family Due to a high probability of clinically significant, life threatening deterioration, the patient required my highest level of preparedness to intervene emergently and I personally spent this critical care time directly and personally managing the patient. This critical care time included obtaining a history; examining the patient; pulse oximetry; ordering and review of studies; arranging urgent treatment with development of a management plan; evaluation of patient's response to treatment; frequent reassessment; and discussions with other providers. It was exclusive of separately billable procedures and treating other patients and teaching time. Please see Assessment and Plan section and the rest of the note for further information on patient assessment and treatment This dictation may have been done utilizing a voice recognition system. Attempts have been made to correct errors. However, there may be uncorrected grammatical, spelling, and recognitions errors present. Subjective Date/time seen: 01/18/24 08:18 Interval history: Reason for consult: Altered mental status, acute respiratory failure, severe metabolic acidosis, multiple strokes, DVT 01/18/2024: Patient seen and examined the ICU, remains intubated, on ASV mode of ventilation, peep of 5, 21% FiO2. Sedation has been off since 01/09/2024. Patient does not open eyes to name follows simple commands. Urine output has been low, remains edematous. She continues to have fevers with a T-max of 100.7?. Patient has had labile blood pressures Review of Systems Review of Systems: ROS unobtainable: Yes unobtainable due to endotracheal tube, unobtainable due to medical condition and unobtainable due to mental status Exam Narrative: General: Intubated and sedated HEENT:? Pupils are equal and reactive to light, patient has positive corneal reflex, sclera is clear, ETT in place, facial puffiness noted Neck:? Supple, right IJ dialysis catheter in place Respiratory:? Coarse breath sounds bilaterally, decreased at bases no wheezing, adequate air entry Cardiac:? S1-S2 normal, regular rate and rhythm, Abdomen:? Soft, nontender, nondistended, hypoactive bowel sounds, old midline surgical scar noted Extremities:? Dry skin, decreased pedal pulses, pitting edema bilateral lower extremities Neuro:? Patient is intubated, off sedation, PERRL, patient withdraws to pain stimulus in bilateral lower extremities, decerebrate posturing of the upper extremities on pain stimuli. Skin:? Dry and flaky skin on lower extremities, skin is warm Psych:? Unable to assess at this time Objective Data Vital Signs Vital Signs: Vital Signs - 24 hr 01/17/24 08:43 01/17/24 10:00 01/17/24 10:00 Temperature 100.0 F H Pulse Rate 97 75 76 Respiratory Rate 13 Blood Pressure 116/54 L Pulse Oximetry 100 Oxygen Delivery Fraction of Inspired Oxygen 01/17/24 11:23 01/17/24 12:00 01/17/24 12:00 Temperature 100.7 F H Pulse Rate 75 79 Respiratory Rate 18 Blood Pressure 111/58 L Pulse Oximetry 100 100 Oxygen Delivery Mechanical Ventilation Fraction of Inspired Oxygen 21 21 01/17/24 12:00 01/17/24 14:03 01/17/24 14:00 Temperature 100.3 F H Pulse Rate 79 88 93 Respiratory Rate 18 14 Blood Pressure 91/54 L Pulse Oximetry 100 100 100 Oxygen Delivery Mechanical Ventilation Mechanical Ventilation Fraction of Inspired Oxygen 21 21 01/17/24 13:47 01/17/24 13:58 01/17/24 14:44 Temperature 100.3 F H 100.4 F H Pulse Rate 87 86 87 Respiratory Rate 17 19 Blood Pressure 148/57 H 138/55 L 109/59 L Pulse Oximetry 100 100 Oxygen Delivery Fraction of Inspired Oxygen 01/17/24 14:45 01/17/24 12:00 01/17/24 14:00 Temperature Pulse Rate 85 76 89 Respiratory Rate Blood Pressure 109/59 L Pulse Oximetry Oxygen Delivery Fraction of Inspired Oxygen 01/17/24 14:15 01/17/24 14:30 01/17/24 15:01 Temperature 100.2 F H Pulse Rate 92 89 80 Respiratory Rate 12 Blood Pressure 91/54 L 95/54 L 111/62 Pulse Oximetry 100 Oxygen Delivery Fraction of Inspired Oxygen 01/17/24 15:00 01/17/24 15:15 01/17/24 15:15 Temperature 100 F H Pulse Rate 79 78 79 Respiratory Rate 14 Blood Pressure 111/62 135/61 135/61 Pulse Oximetry 100 Oxygen Delivery Fraction of Inspired Oxygen 01/17/24 15:30 01/17/24 15:45 01/17/24 16:30 Temperature Pulse Rate 79 86 83 Respiratory Rate Blood Pressure 123/62 124/78 152/70 H Pulse Oximetry Oxygen Delivery Fraction of Inspired Oxygen 01/17/24 16:45 01/17/24 17:00 01/17/24 16:00 Temperature 99.5 F Pulse Rate 83 85 82 Respiratory Rate 14 Blood Pressure 112/68 145/75 H 120/64 Pulse Oximetry 100 Oxygen Delivery Fraction of Inspired Oxygen 01/17/24 15:55 01/17/24 16:16 01/17/24 17:32 Temperature Pulse Rate 84 85 87 Respiratory Rate Blood Pressure 125/66 121/62 Pulse Oximetry 100 Oxygen Delivery Mechanical Ventilation Fraction of Inspired Oxygen 21 01/17/24 17:16 01/17/24 17:26 01/17/24 16:00 Temperature 99.2 F Pulse Rate 76 87 Respiratory Rate 12 Blood Pressure 134/80 148/66 H Pulse Oximetry 100 Oxygen Delivery Fraction of Inspired Oxygen 21 01/17/24 18:00 01/17/24 16:00 01/17/24 16:00 Temperature 99.9 F H Pulse Rate 89 89 82 Respiratory Rate 14 14 Blood Pressure 118/66 Pulse Oximetry 100 100 Oxygen Delivery Mechanical Ventilation Fraction of Inspired Oxygen 21 01/17/24 18:00 01/17/24 20:32 01/17/24 20:44 Temperature 100.9 F H Pulse Rate 88 83 Respiratory Rate Blood Pressure Pulse Oximetry 100 Oxygen Delivery Mechanical Ventilation Fraction of Inspired Oxygen 21 01/17/24 20:00 01/17/24 20:00 01/17/24 20:00 Temperature 100.7 F H Pulse Rate 83 84 Respiratory Rate 14 14 Blood Pressure 127/63 Pulse Oximetry 100 100 Oxygen Delivery Mechanical Ventilation Fraction of Inspired Oxygen 21 21 01/17/24 22:00 01/17/24 22:00 01/17/24 21:44 Temperature 100.7 F H 100.7 F H Pulse Rate 81 83 Respiratory Rate 15 Blood Pressure 96/56 L Pulse Oximetry 100 Oxygen Delivery Fraction of Inspired Oxygen 01/17/24 22:27 01/17/24 22:56 01/17/24 23:23 Temperature Pulse Rate 83 96 Respiratory Rate Blood Pressure Pulse Oximetry 100 Oxygen Delivery Mechanical Ventilation Fraction of Inspired Oxygen 21 21 01/17/24 23:23 01/18/24 00:00 01/18/24 00:00 Temperature 99.5 F Pulse Rate 81 79 80 Respiratory Rate 13 13 Blood Pressure 142/67 H Pulse Oximetry 100 100 Oxygen Delivery Mechanical Ventilation Fraction of Inspired Oxygen 21 01/18/24 02:00 01/18/24 02:00 01/18/24 02:33 Temperature 99.7 F H 99.7 F H Pulse Rate 89 89 85 Respiratory Rate 13 13 Blood Pressure 180/75 H 162/67 H Pulse Oximetry 100 100 Oxygen Delivery Fraction of Inspired Oxygen 01/18/24 02:25 01/18/24 04:00 01/18/24 04:00 Temperature Pulse Rate 90 Respiratory Rate Blood Pressure Pulse Oximetry 100 Oxygen Delivery Mechanical Ventilation Mechanical Ventilation Fraction of Inspired Oxygen 21 21 21 01/18/24 04:00 01/18/24 04:59 01/18/24 05:09 Temperature 99.9 F H 100.2 F H Pulse Rate 93 94 Respiratory Rate 14 Blood Pressure 181/75 H Pulse Oximetry 100 Oxygen Delivery Fraction of Inspired Oxygen 01/18/24 05:32 01/18/24 04:00 01/18/24 06:00 Temperature Pulse Rate 83 89 82 Respiratory Rate Blood Pressure Pulse Oximetry 100 Oxygen Delivery Mechanical Ventilation Fraction of Inspired Oxygen 21 01/18/24 06:00 01/18/24 06:09 01/18/24 07:15 Temperature 100.1 F H 100.1 F H Pulse Rate 83 86 Respiratory Rate 14 Blood Pressure 132/65 Pulse Oximetry 100 100 Oxygen Delivery Mechanical Ventilation Fraction of Inspired Oxygen 21 01/18/24 08:00 Temperature Pulse Rate 84 Respiratory Rate Blood Pressure Pulse Oximetry 100 Oxygen Delivery Mechanical Ventilation Fraction of Inspired Oxygen 21 Intake/Output Intake/Output: Intake & Output 01/15/24 01/16/24 01/17/24 01/18/24 23:59 23:59 23:59 23:59 Intake Total 2254 2098.8 2300.8 650 Output Total 1775 1250 925 350 Balance 479 848.8 1375.8 300 Meds/Results Medications: Active Medications Generic Name Dose Route Start Last Admin Trade Name Freq PRN Reason Stop Dose Admin Acetaminophen 650 mg 01/10/24 08:02 01/18/24 05:09 Acetaminophen 325 Mg Tablet FEED TUBE 650 mg Q6H PRN Administration Mild Pain (1-3) or Fever Amlodipine Besylate 10 mg 01/11/24 14:05 01/17/24 08:44 Amlodipine Besylate 10 Mg Tablet FEED TUBE 10 mg DAILY CARMELA Administration Aspirin 325 mg 01/12/24 16:00 01/17/24 08:43 Aspirin 325 Mg Tablet FEED TUBE 325 mg DAILY@0800 [facility] Administration Atorvastatin Calcium 40 mg 01/13/24 09:00 01/18/24 08:15 Atorvastatin 40 Mg Tablet FEED TUBE 40 mg DAILY CARMELA Administration Dextrose 12.5 gm 01/07/24 13:18 Dextrose 50% 25 Gm/50 Ml Syringe IV PUSH PRN PRN Hypoglycemia Protocol Epoetin Dane-epbx 10,000 units 01/12/24 09:20 01/17/24 08:44 Epoetin Dane-Epbx 10,000 Units/Ml Vial SUB-Q 10,000 units MOWEFR@09 CARMELA Administration Glucagon 1 mg 01/07/24 13:18 Glucagon For Inj 1 Mg Vial IM PRN PRN Hypoglycemia Protocol Glucose 15 gm 01/07/24 13:18 Glucose Oral Gel 15 Gm Of Glucse In 37.5 Gm Tube PO PRN PRN Hypoglycemia Protocol Hydralazine HCl 10 mg 01/18/24 02:20 01/18/24 05:40 Hydralazine 10 Mg Tablet PO Not Given Q6HR CARMELA Dextrose 1,000 mls @ 100 mls/hr 01/07/24 13:18 Dextrose 5% 1,000 Ml IVPB PRN PRN Hypoglycemia Protocol Albumin Human 50 mls @ 999 mls/hr 01/07/24 17:11 01/12/24 10:30 Albutein IVPB 02/06/24 17:10 Infused Q10M PRN Infusion HYPOTENSION Levetiracetam 500 mg in 100 mls @ 400 mls/hr 01/07/24 21:00 01/17/24 21:00 Keppra Iv IVPB Infused Q24H CARMELA Infusion Insulin Aspart 4 - 8 units 01/10/24 07:55 01/18/24 05:07 Insulin Aspart (*Bkc) 100 Units/Ml SUB-Q Not Given Q4H [facility] Protocol Insulin Glargine 60 units 01/17/24 09:00 01/18/24 07:48 Insulin Glargine (*Bkc) 100 Units/Ml SUB-Q Not Given Q12H [facility] Labetalol HCl 20 mg 01/08/24 14:39 01/18/24 04:59 Labetalol Hcl Inj 100 Mg/20 Ml Vial IV PUSH 20 mg Q4H PRN Administration Hypertension Metoprolol Tartrate 100 mg 01/16/24 09:00 01/17/24 08:43 Metoprolol Tartrate 50 Mg Tab FEED TUBE 100 mg Q12HR CARMELA Administration Multi-Ingred Cream/Lotion/Oil/Oint 1 applic 01/07/24 21:00 01/18/24 08:15 Mineral Oil/White Petrolatum Ointment EACH EYE 1 applic Q12HR CARMELA Administration Pantoprazole Sodium 40 mg 01/07/24 21:00 01/18/24 08:15 Pantoprazole Sodium Iv 40 Mg Vial IV PUSH 40 mg Q12HR CARMELA Administration Radiology Results: ITS Impressions Abdomen/Pelvis CT 01/07/24 16:52 IMPRESSION: No acute abdominopelvic process. Specifically, there is no CT evidence of bowel obstruction. No definite evidence of renal injury, noting that low-grade renal injury as can be difficult to detect without contrast. Renal Ultrasound 01/08/24 10:47 IMPRESSION: 1. Normal kidney sizes. No hydronephrosis. Chest/Abdomen/Pelvis CT 01/12/24 15:08 IMPRESSION: Interval enlargement of the liver, when compared with previous examination. Flattening of the inferior vena cava suggesting severe hypovolemia. Interval development of basilar atelectasis and trace bilateral pleural effusions. No additional findings which represents a change from prior examination performed 01/07/2024. Supportive devices are in good position. Redemonstration of multiple stones within the gallbladder which is not distended. Head CT 01/12/24 15:31 IMPRESSION: 1. 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 2. Large distribution of chronic encephalomalacia in the expected distribution of left middle cerebral artery. Abdomen Ultrasound 01/13/24 09:31 IMPRESSION: 1. Cholelithiasis. 2. Normal liver Doppler. Arterial/Peripheral Duplex 01/13/24 09:31 IMPRESSION: 1. Cholelithiasis. 2. Normal liver Doppler. Venous Doppler Study 01/15/24 17:14 IMPRESSION: 1. Deep vein thrombosis involving left common femoral vein. ADDENDUM: 01/15/24 [id number] I called this result to Apurva Mclean. Abdomen X-Ray 01/16/24 06:03 Impression: NG tube in satisfactory position. Chest X-Ray 01/18/24 06:16 Impression: Probable linear scarring or atelectasis left lung base. Stable support tubes. Labs Labs: Laboratory Results - last 24 hr 01/08/24 01/17/24 01/17/24 00:26 08:01 08:53 WBC 10.4 H RBC 2.33 L Hgb 6.9 L* Hct 23.0 L MCV 98.7 MCH 29.6 MCHC 30.0 L RDW 14.6 H Plt Count 397 H MPV 11.7 H Immature Gran % (Auto) 4.0 H Neut % (Auto) 64.6 Lymph % (Auto) 17.6 L Lucas % (Auto) 10.6 H Eos % (Auto) 2.8 Baso % (Auto) 0.4 Lymph # (Auto) 1.82 Lucas # (Auto) 1.1 H Eos # (Auto) 0.3 Baso # (Auto) 0.0 Abs Immat Gran (auto) 0.41 H Absolute Neuts (auto) 6.7 Absolute Nucleated RBC 0.040 H Nucleated RBC % 0.4 H APTT Puncture Site ABG pH ABG pCO2 ABG pO2 ABG PO2/FiO2 Ratio ABG HCO3 ABG O2 Saturation ABG O2 Content ABG Base Excess A-a Gradient Oxyhemoglobin Carboxyhemoglobin Methemoglobin Reduced Hemoglobin Total Hemoglobin O2 Delivery Device O2 Liters/Min Minute Volume Vent Rate Vent Mode FiO2 Tidal Volume PEEP Peak Inspir Pressure Pressure Support Sodium Potassium Chloride Carbon Dioxide Anion Gap BUN Creatinine Estim Creat Clear Calc Estimated GFR Glucose POC Capillary Glucose Calcium Phosphorus Magnesium Total Bilirubin AST ALT Alkaline Phosphatase Total Protein Albumin Stl Occult Blood (IFOB) Blood Type O Positive Antibody Screen Negative Crossmatch See Detail See Detail 01/17/24 01/17/24 01/17/24 11:39 12:28 16:36 WBC RBC Hgb Hct MCV MCH MCHC RDW Plt Count MPV Immature Gran % (Auto) Neut % (Auto) Lymph % (Auto) Lucas % (Auto) Eos % (Auto) Baso % (Auto) Lymph # (Auto) Lucas # (Auto) Eos # (Auto) Baso # (Auto) Abs Immat Gran (auto) Absolute Neuts (auto) Absolute Nucleated RBC Nucleated RBC % APTT Puncture Site ABG pH ABG pCO2 ABG pO2 ABG PO2/FiO2 Ratio ABG HCO3 ABG O2 Saturation ABG O2 Content ABG Base Excess A-a Gradient Oxyhemoglobin Carboxyhemoglobin Methemoglobin Reduced Hemoglobin Total Hemoglobin O2 Delivery Device O2 Liters/Min Minute Volume Vent Rate Vent Mode FiO2 Tidal Volume PEEP Peak Inspir Pressure Pressure Support Sodium Potassium Chloride Carbon Dioxide Anion Gap BUN Creatinine Estim Creat Clear Calc Estimated GFR Glucose POC Capillary Glucose 264 H 169 H Calcium Phosphorus Magnesium Total Bilirubin AST ALT Alkaline Phosphatase Total Protein Albumin Stl Occult Blood (IFOB) Positive H Blood Type Antibody Screen Crossmatch 01/17/24 01/18/24 01/18/24 20:01 00:30 04:58 WBC RBC Hgb Hct MCV MCH MCHC RDW Plt Count MPV Immature Gran % (Auto) Neut % (Auto) Lymph % (Auto) Lucas % (Auto) Eos % (Auto) Baso % (Auto) Lymph # (Auto) Lucas # (Auto) Eos # (Auto) Baso # (Auto) Abs Immat Gran (auto) Absolute Neuts (auto) Absolute Nucleated RBC Nucleated RBC % APTT Puncture Site ABG pH ABG pCO2 ABG pO2 ABG PO2/FiO2 Ratio ABG HCO3 ABG O2 Saturation ABG O2 Content ABG Base Excess A-a Gradient Oxyhemoglobin Carboxyhemoglobin Methemoglobin Reduced Hemoglobin Total Hemoglobin O2 Delivery Device O2 Liters/Min Minute Volume Vent Rate Vent Mode FiO2 Tidal Volume PEEP Peak Inspir Pressure Pressure Support Sodium Potassium Chloride Carbon Dioxide Anion Gap BUN Creatinine Estim Creat Clear Calc Estimated GFR Glucose POC Capillary Glucose 216 H 242 H 161 H Calcium Phosphorus Magnesium Total Bilirubin AST ALT Alkaline Phosphatase Total Protein Albumin Stl Occult Blood (IFOB) Blood Type Antibody Screen Crossmatch 01/18/24 01/18/24 01/18/24 05:13 05:57 07:55 WBC 12.9 H RBC 2.93 L Hgb 8.4 L Hct 27.4 L MCV 93.5 D MCH 28.7 MCHC 30.7 L RDW 16.8 H Plt Count 361 MPV 11.9 H Immature Gran % (Auto) Neut % (Auto) Lymph % (Auto) Lucas % (Auto) Eos % (Auto) Baso % (Auto) Lymph # (Auto) Lucas # (Auto) Eos # (Auto) Baso # (Auto) Abs Immat Gran (auto) Absolute Neuts (auto) Absolute Nucleated RBC Nucleated RBC % APTT 32.2 Puncture Site Left brachial ABG pH 7.535 H* ABG pCO2 31.1 L ABG pO2 92.1 ABG PO2/FiO2 Ratio 4.39 ABG HCO3 25.7 ABG O2 Saturation 97.9 ABG O2 Content 13.0 L ABG Base Excess 3.3 A-a Gradient 20.4 Oxyhemoglobin 97.0 Carboxyhemoglobin 0.4 Methemoglobin 0.3 Reduced Hemoglobin 2.3 Total Hemoglobin 9.4 L O2 Delivery Device Ventilator O2 Liters/Min Not Reportable Minute Volume 100.0 Vent Rate Not Reportable Vent Mode Asv FiO2 21 Tidal Volume Not Reportable PEEP 5 Peak Inspir Pressure Not Reportable Pressure Support Not Reportable Sodium 140 Potassium 3.7 Chloride 107 Carbon Dioxide 28 Anion Gap 5 BUN 46 H D Creatinine 2.40 H Estim Creat Clear Calc 22 Estimated GFR 20 L Glucose 183 H POC Capillary Glucose 179 H Calcium 8.5 Phosphorus 2.6 Magnesium 2.0 Total Bilirubin 0.4 AST 39 H ALT 22 Alkaline Phosphatase 100 Total Protein 6.0 L Albumin 3.0 L Stl Occult Blood (IFOB) Blood Type Antibody Screen Crossmatch
--- NOTE | 2024-01-18 08:29 | WPDHPUPDATE1 ---
History and Physical Update Update Date/Time: 01/18/24 08:29 History and Physical has been reviewed, including an updated exam of the patient. There are NO changes in the patient's condition. Risks, benefits, and alternatives have been discussed and questions answered. Patient agrees to proceed with procedure.
--- NOTE | 2024-01-18 08:47 | P.PNIM_ITS ---
Progress Note: A&P Assessment and Plan (1) Stroke: Code(s): I63.9 - Cerebral infarction, unspecified Status: Acute (2) Urinary tract infection: Code(s): N39.0 - Urinary tract infection, site not specified Status: Acute (3) Observed seizure-like activity: Code(s): R56.9 - Unspecified convulsions Status: Acute (4) Acute kidney failure: Code(s): N17.9 - Acute kidney failure, unspecified Status: Acute Plan (1) Stroke: Code(s): I63.9 - Cerebral infarction, unspecified Status: Acute Assessment and Plan: Patient presented with altered mental status but at that time patient was respiratory failure acute renal failure acidosis and sepsis. CT scan on pre sentation showed only old stroke and encephalomalacia Since then patient has not woken up despite holding sedation for multiple days and dialysis. 01/[address] was done which showed. 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 These are likely secondary to hypotension Echo did not show any thrombus or ASD Continue aspirin and statin Neurology following EEG 01/12 suggested generalized cephalopathy.No significant change in neurological status (2) Encephalopathy: Code(s): G93.40 - Encephalopathy, unspecified Status: Acute Assessment and Plan: Patient presented with encephalopathy, altered mental status, delirium, confusion Also likely resulting in a stroke, uremia and infection TSH and ammonia normal Patient has been off sedation Responsive to pain stimuli EEG as above Patient was dialyzed 01/11 to help with drug removal. Minimal improved Encephalopathy likely secondary to strokes. See above. Neurology following -patient has been off sedation since 01/09/2024, has not woken up -01/16: Ammonia levels are normal CT brain on admission IMPRESSION: 1. No acute intracranial process. 2. 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 3. Additional more diffuse likely age-related mild to moderate diffuse volume loss and mild scattered white matter hypoattenuation consistent with chronic small vessel ischemic disease. 01/11: Repeat CT scan of the brain IMPRESSION: 1. 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 2. Large distribution of chronic encephalomalacia in the expected distribution of left middle cerebral artery. Acute respiratory failure: Code(s): J96.00 - Acute respiratory failure, unspecified whether with hypoxia or hypercapnia Status: Acute Assessment and Plan: Patient had an episode of emesis in the ER, given her altered mental status encephalopathy, risk of aspiration with impending respiratory failure patient was intubated on 01/06/2025 -currently on CMV mode of ventilation, peep of 5, 21% FiO2 -ABG reviewed and currently on vent rate to 14 and tidal volume to 300 Mechanical ventilation event Entresto per modeler (4) Acute kidney failure: Code(s): N17.9 - Acute kidney failure, unspecified Status: Acute Assessment and Plan: On chronic kidney injury, unknown cause, CT of the abdomen and pelvis did not show any hydronephrosis or urinary obstruction Patient was found have for metabolic acidosis, patient received fluid resuscitation, bicarbonate push, Painter Sign Maintenance is consulted, Chronic patient on hemodialysis 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 This could be combination of septic shock, acute kidney injury but also a possibility of metformin toxicity Patient received hemodialysis and IV bicarb. Acidosis has resolved. Further dialysis per Nephrology Septic shock: Code(s): A41.9 - Sepsis, unspecified organism; R65.21 - Severe sepsis with septic shock Status: Acute Assessment and Plan: RESOLVED Patient hypotensive on presentation Patient was given IV fluid bolus followed by maintenance IV fluids -lactic acid has improved -Levophed weaned off -off IV fluids Possible due UTI. Urine and blood cultures are negative till now, STATUS POST CEFTRIAXONE -status post stress dose steroids Blood culture and urine culture negative 01/14: Patient continues to have low-grade fever but overall fever curve is down. White count is normal. CT scan of chest and pelvis does not show any area suggestive of infection. Clark catheter was changed. Procalcitonin level is also on the lower side. Continue cefepime but will discontinue vancomycin at this time. Cultures are negative till now. -lipase was within normal limits lower extremity venous Dopplers: Left common femoral vein DVT -01/14: patient was started on heparin infusion OFF all abx (7) Diastolic dysfunction: Code(s): I51.89 - Other ill-defined heart diseases Status: Acute Assessment and Plan: Echo 01/11 Summary 1. Left ventricular systolic function is normal, estimated at 60-65%. 2. There is moderately increased left ventricular wall thickness. 3. Intact interatrial septum visualized by agitated saline imaging. 4. There is mild aortic valve calcification. 5. There is mild aortic valve stenosis with a peak velocity of 190 cm/s,mean gradient of 8 mmHg, and aortic valve area of 1.8 cm2. 6. There is mild tricuspid valve regurgitation. 7. Mild pulmonary hypertension, estimated pulmonary arterial systolicpressure is 46 mmHg. (8) Insulin dependent diabetes mellitus: Status: Chronic Assessment and Plan: Continue sliding scale insulin Accu-Cheks Lantus was increased and will dose b.i.d. (hold a.m. Lantus dose as patient is NPO for the procedure) (9) Right hemiparesis: Code(s): G81.91 - Hemiplegia, unspecified affecting right dominant side Status: Acute Assessment and Plan: History of left-sided cerebral hemisphere and CVA, residual mild aphasia and right-sided weakness Seizures: Code(s): R56.9 - Unspecified convulsions Status: Acute Assessment and Plan: Patient has a history of seizures, on p.o. Keppra 500 mg p.o. q.12 hours Continue Keppra IV 500 mg IV q.24 (discuss with pharmacist) EEG negative for any seizure-like activity Hypertension: Code(s): I10 - Essential (primary) hypertension Status: Acute Assessment and Plan: Blood pressures have been labile, will hold metoprolol, hydralazine and amlodipine for now -patient has p.r.n. labetalol stable now Anemia: Code(s): D64.9 - Anemia, unspecified Status: Acute Assessment and Plan: 01/16: Patient has been on heparin infusion for DVT in the right common femoral vein. Dropped hemoglobin this morning to 6.7 from 7.8. -will hold heparin infusion -check stool for Hemoccult -consulted surgery for IVC filter placement Subjective Date/time seen: 01/18/24 08:47 Interval history: I saw examined patient in ICU, patient is off sedation, unresponsive with verbal command, patient blinks eyes intermittently. Pupil responsive to light. Patient still on mechanical ventilation, patient is afebrile, blood pressure stable, temperature 99.4?. Labs reviewed, patient has leukocytosis 12,900, that is trending up, Exam Narrative: General: Intubated off sedation HEENT:? Pupils are equal and reactive to light, positive corneal reflex, Neck:? Supple, right IJ dialysis catheter in place Respiratory:? Coarse breath sounds bilaterally, decreased at bases no wheezing, adequate air entry Cardiac:? S1-S2 normal, regular rate and rhythm, Abdomen:? Soft, nondistended, hypoactive bowel sounds, old midline surgical scar noted Extremities:? Dry skin, decreased pedal pulses, 2+ lower extremity edema Neuro:? Patient is intubated, responsive to pain stimuli Skin:? Dry and flaky skin on lower extremities, skin is warm Psych:? Unable to assess at this time Objective Data Vital Signs Vital Signs: Vital Signs - 24 hr 01/17/24 10:00 01/17/24 10:00 01/17/24 11:23 Temperature 100.0 F H Pulse Rate 75 76 75 Respiratory Rate 13 Blood Pressure 116/54 L Pulse Oximetry 100 100 Oxygen Delivery Mechanical Ventilation Fraction of Inspired Oxygen 21 01/17/24 12:00 01/17/24 12:00 01/17/24 12:00 Temperature 100.7 F H Pulse Rate 79 79 Respiratory Rate 18 18 Blood Pressure 111/58 L Pulse Oximetry 100 100 Oxygen Delivery Mechanical Ventilation Fraction of Inspired Oxygen 21 21 01/17/24 14:03 01/17/24 14:00 01/17/24 13:47 Temperature 100.3 F H 100.3 F H Pulse Rate 88 93 87 Respiratory Rate 14 17 Blood Pressure 91/54 L 148/57 H Pulse Oximetry 100 100 100 Oxygen Delivery Mechanical Ventilation Fraction of Inspired Oxygen 21 01/17/24 13:58 01/17/24 14:44 01/17/24 14:45 Temperature 100.4 F H Pulse Rate 86 87 85 Respiratory Rate 19 Blood Pressure 138/55 L 109/59 L 109/59 L Pulse Oximetry 100 Oxygen Delivery Fraction of Inspired Oxygen 01/17/24 12:00 01/17/24 14:00 01/17/24 14:15 Temperature Pulse Rate 76 89 92 Respiratory Rate Blood Pressure 91/54 L Pulse Oximetry Oxygen Delivery Fraction of Inspired Oxygen 01/17/24 14:30 01/17/24 15:01 01/17/24 15:00 Temperature 100.2 F H Pulse Rate 89 80 79 Respiratory Rate 12 Blood Pressure 95/54 L 111/62 111/62 Pulse Oximetry 100 Oxygen Delivery Fraction of Inspired Oxygen 01/17/24 15:15 01/17/24 15:15 01/17/24 15:30 Temperature 100 F H Pulse Rate 78 79 79 Respiratory Rate 14 Blood Pressure 135/61 135/61 123/62 Pulse Oximetry 100 Oxygen Delivery Fraction of Inspired Oxygen 01/17/24 15:45 01/17/24 16:30 01/17/24 16:45 Temperature Pulse Rate 86 83 83 Respiratory Rate Blood Pressure 124/78 152/70 H 112/68 Pulse Oximetry Oxygen Delivery Fraction of Inspired Oxygen 01/17/24 17:00 01/17/24 16:00 01/17/24 15:55 Temperature 99.5 F Pulse Rate 85 82 84 Respiratory Rate 14 Blood Pressure 145/75 H 120/64 125/66 Pulse Oximetry 100 Oxygen Delivery Fraction of Inspired Oxygen 01/17/24 16:16 01/17/24 17:32 01/17/24 17:16 Temperature Pulse Rate 85 87 76 Respiratory Rate Blood Pressure 121/62 134/80 Pulse Oximetry 100 Oxygen Delivery Mechanical Ventilation Fraction of Inspired Oxygen 21 01/17/24 17:26 01/17/24 16:00 01/17/24 18:00 Temperature 99.2 F 99.9 F H Pulse Rate 87 89 Respiratory Rate 12 14 Blood Pressure 148/66 H 118/66 Pulse Oximetry 100 100 Oxygen Delivery Fraction of Inspired Oxygen 21 01/17/24 16:00 01/17/24 16:00 01/17/24 18:00 Temperature Pulse Rate 89 82 88 Respiratory Rate 14 Blood Pressure Pulse Oximetry 100 Oxygen Delivery Mechanical Ventilation Fraction of Inspired Oxygen 21 01/17/24 20:32 01/17/24 20:44 01/17/24 20:00 Temperature 100.9 F H Pulse Rate 83 Respiratory Rate Blood Pressure Pulse Oximetry 100 Oxygen Delivery Mechanical Ventilation Fraction of Inspired Oxygen 21 21 01/17/24 20:00 01/17/24 20:00 01/17/24 22:00 Temperature 100.7 F H Pulse Rate 83 84 81 Respiratory Rate 14 14 Blood Pressure 127/63 Pulse Oximetry 100 100 Oxygen Delivery Mechanical Ventilation Fraction of Inspired Oxygen 21 01/17/24 22:00 01/17/24 21:44 01/17/24 22:27 Temperature 100.7 F H 100.7 F H Pulse Rate 83 83 Respiratory Rate 15 Blood Pressure 96/56 L Pulse Oximetry 100 Oxygen Delivery Fraction of Inspired Oxygen 01/17/24 22:56 01/17/24 23:23 01/17/24 23:23 Temperature Pulse Rate 96 81 Respiratory Rate 13 Blood Pressure Pulse Oximetry 100 100 Oxygen Delivery Mechanical Ventilation Mechanical Ventilation Fraction of Inspired Oxygen 21 21 21 01/18/24 00:00 01/18/24 00:00 01/18/24 02:00 Temperature 99.5 F Pulse Rate 79 80 89 Respiratory Rate 13 Blood Pressure 142/67 H Pulse Oximetry 100 Oxygen Delivery Fraction of Inspired Oxygen 01/18/24 02:00 01/18/24 02:33 01/18/24 02:25 Temperature 99.7 F H 99.7 F H Pulse Rate 89 85 90 Respiratory Rate 13 13 Blood Pressure 180/75 H 162/67 H Pulse Oximetry 100 100 100 Oxygen Delivery Mechanical Ventilation Fraction of Inspired Oxygen 21 01/18/24 04:00 01/18/24 04:00 01/18/24 04:00 Temperature 99.9 F H Pulse Rate 93 Respiratory Rate 14 Blood Pressure 181/75 H Pulse Oximetry 100 Oxygen Delivery Mechanical Ventilation Fraction of Inspired Oxygen 21 21 01/18/24 04:59 01/18/24 05:09 01/18/24 05:32 Temperature 100.2 F H Pulse Rate 94 83 Respiratory Rate Blood Pressure Pulse Oximetry 100 Oxygen Delivery Mechanical Ventilation Fraction of Inspired Oxygen 21 01/18/24 04:00 01/18/24 06:00 01/18/24 06:00 Temperature 100.1 F H Pulse Rate 89 82 83 Respiratory Rate 14 Blood Pressure 132/65 Pulse Oximetry 100 Oxygen Delivery Fraction of Inspired Oxygen 01/18/24 06:09 01/18/24 07:15 01/18/24 08:00 Temperature 100.1 F H Pulse Rate 86 84 Respiratory Rate Blood Pressure Pulse Oximetry 100 100 Oxygen Delivery Mechanical Ventilation Mechanical Ventilation Fraction of Inspired Oxygen 21 01/18/24 08:00 Temperature Pulse Rate 80 Respiratory Rate Blood Pressure Pulse Oximetry Oxygen Delivery Fraction of Inspired Oxygen Intake/Output Intake/Output: Intake & Output 01/15/24 01/16/24 01/17/24 01/18/24 23:59 23:59 23:59 23:59 Intake Total 2254 2098.8 2300.8 650 Output Total 1775 1250 925 350 Balance 479 848.8 1375.8 300 Meds/Results Medications: Active Medications Generic Name Dose Route Start Last Admin Trade Name Freq PRN Reason Stop Dose Admin Acetaminophen 650 mg 01/10/24 08:02 01/18/24 05:09 Acetaminophen 325 Mg Tablet FEED TUBE 650 mg Q6H PRN Administration Mild Pain (1-3) or Fever Amlodipine Besylate 10 mg 01/11/24 14:05 01/17/24 08:44 Amlodipine Besylate 10 Mg Tablet FEED TUBE 10 mg DAILY CARMELA Administration Aspirin 325 mg 01/12/24 16:00 01/17/24 08:43 Aspirin 325 Mg Tablet FEED TUBE 325 mg DAILY@0800 CARMELA Administration Atorvastatin Calcium 40 mg 01/13/24 09:00 01/18/24 08:15 Atorvastatin 40 Mg Tablet FEED TUBE 40 mg DAILY CARMELA Administration Dextrose 12.5 gm 01/07/24 13:18 Dextrose 50% 25 Gm/50 Ml Syringe IV PUSH PRN PRN Hypoglycemia Protocol Epoetin Dane-epbx 10,000 units 01/12/24 09:20 01/17/24 08:44 Epoetin Dane-Epbx 10,000 Units/Ml Vial SUB-Q 10,000 units MOWEFR@09 CARMELA Administration Glucagon 1 mg 01/07/24 13:18 Glucagon For Inj 1 Mg Vial IM PRN PRN Hypoglycemia Protocol Glucose 15 gm 01/07/24 13:18 Glucose Oral Gel 15 Gm Of Glucse In 37.5 Gm Tube PO PRN PRN Hypoglycemia Protocol Hydralazine HCl 10 mg 01/18/24 02:20 01/18/24 05:40 Hydralazine 10 Mg Tablet PO Not Given Q6HR CARMELA Dextrose 1,000 mls @ 100 mls/hr 01/07/24 13:18 Dextrose 5% 1,000 Ml IVPB PRN PRN Hypoglycemia Protocol Albumin Human 50 mls @ 999 mls/hr 01/07/24 17:11 01/12/24 10:30 Albutein IVPB 02/06/24 17:10 Infused Q10M PRN Infusion HYPOTENSION Levetiracetam 500 mg in 100 mls @ 400 mls/hr 01/07/24 21:00 01/17/24 21:00 Keppra Iv IVPB Infused Q24H CARMELA Infusion Insulin Aspart 4 - 8 units 01/10/24 07:55 01/18/24 05:07 Insulin Aspart (*Bkc) 100 Units/Ml SUB-Q Not Given Q4H [facility] Protocol Insulin Glargine 60 units 01/17/24 09:00 01/18/24 07:48 Insulin Glargine (*Bkc) 100 Units/Ml SUB-Q Not Given Q12H [facility] Labetalol HCl 10 mg 01/18/24 08:37 Labetalol Hcl Inj 100 Mg/20 Ml Vial IV PUSH Q4H PRN Hypertension Metoprolol Tartrate 100 mg 01/16/24 09:00 01/17/24 08:43 Metoprolol Tartrate 50 Mg Tab FEED TUBE 100 mg Q12HR [facility] Administration Multi-Ingred Cream/Lotion/Oil/Oint 1 applic 01/07/24 21:00 01/18/24 08:15 Mineral Oil/White Petrolatum Ointment EACH EYE 1 applic Q12HR [facility] Administration Pantoprazole Sodium 40 mg 01/07/24 21:00 01/18/24 08:15 Pantoprazole Sodium Iv 40 Mg Vial IV PUSH 40 mg Q12HR CARMELA Administration Radiology Results: ITS Impressions Abdomen/Pelvis CT 01/07/24 16:52 IMPRESSION: No acute abdominopelvic process. Specifically, there is no CT evidence of bowel obstruction. No definite evidence of renal injury, noting that low-grade renal injury as can be difficult to detect without contrast. Renal Ultrasound 01/08/24 10:47 IMPRESSION: 1. Normal kidney sizes. No hydronephrosis. Chest/Abdomen/Pelvis CT 01/12/24 15:08 IMPRESSION: Interval enlargement of the liver, when compared with previous examination. Flattening of the inferior vena cava suggesting severe hypovolemia. Interval development of basilar atelectasis and trace bilateral pleural effusions. No additional findings which represents a change from prior examination performed 01/07/2024. Supportive devices are in good position. Redemonstration of multiple stones within the gallbladder which is not distended. Head CT 01/12/24 15:31 IMPRESSION: 1. 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 2. Large distribution of chronic encephalomalacia in the expected distribution of left middle cerebral artery. Abdomen Ultrasound 01/13/24 09:31 IMPRESSION: 1. Cholelithiasis. 2. Normal liver Doppler. Arterial/Peripheral Duplex 01/13/24 09:31 IMPRESSION: 1. Cholelithiasis. 2. Normal liver Doppler. Venous Doppler Study 01/15/24 17:14 IMPRESSION: 1. Deep vein thrombosis involving left common femoral vein. ADDENDUM: 01/15/24 [id number] I called this result to Apurva Mclean. Abdomen X-Ray 01/16/24 06:03 Impression: NG tube in satisfactory position. Chest X-Ray 01/18/24 06:16 Impression: Probable linear scarring or atelectasis left lung base. Stable support tubes. Labs Labs: Laboratory Results - last 24 hr 01/08/24 01/17/24 01/17/24 00:26 08:53 11:39 WBC RBC Hgb Hct MCV MCH MCHC RDW Plt Count MPV APTT Puncture Site ABG pH ABG pCO2 ABG pO2 ABG PO2/FiO2 Ratio ABG HCO3 ABG O2 Saturation ABG O2 Content ABG Base Excess A-a Gradient Oxyhemoglobin Carboxyhemoglobin Methemoglobin Reduced Hemoglobin Total Hemoglobin O2 Delivery Device O2 Liters/Min Minute Volume Vent Rate Vent Mode FiO2 Tidal Volume PEEP Peak Inspir Pressure Pressure Support Sodium Potassium Chloride Carbon Dioxide Anion Gap BUN Creatinine Estim Creat Clear Calc Estimated GFR Glucose POC Capillary Glucose 264 H Calcium Phosphorus Magnesium Total Bilirubin AST ALT Alkaline Phosphatase Total Protein Albumin Stl Occult Blood (IFOB) Blood Type O Positive Antibody Screen Negative Crossmatch See Detail See Detail 01/17/24 01/17/24 01/17/24 12:28 16:36 20:01 WBC RBC Hgb Hct MCV MCH MCHC RDW Plt Count MPV APTT Puncture Site ABG pH ABG pCO2 ABG pO2 ABG PO2/FiO2 Ratio ABG HCO3 ABG O2 Saturation ABG O2 Content ABG Base Excess A-a Gradient Oxyhemoglobin Carboxyhemoglobin Methemoglobin Reduced Hemoglobin Total Hemoglobin O2 Delivery Device O2 Liters/Min Minute Volume Vent Rate Vent Mode FiO2 Tidal Volume PEEP Peak Inspir Pressure Pressure Support Sodium Potassium Chloride Carbon Dioxide Anion Gap BUN Creatinine Estim Creat Clear Calc Estimated GFR Glucose POC Capillary Glucose 169 H 216 H Calcium Phosphorus Magnesium Total Bilirubin AST ALT Alkaline Phosphatase Total Protein Albumin Stl Occult Blood (IFOB) Positive H Blood Type Antibody Screen Crossmatch 01/18/24 01/18/24 01/18/24 00:30 04:58 05:13 WBC 12.9 H RBC 2.93 L Hgb 8.4 L Hct 27.4 L MCV 93.5 D MCH 28.7 MCHC 30.7 L RDW 16.8 H Plt Count 361 MPV 11.9 H APTT 32.2 Puncture Site ABG pH ABG pCO2 ABG pO2 ABG PO2/FiO2 Ratio ABG HCO3 ABG O2 Saturation ABG O2 Content ABG Base Excess A-a Gradient Oxyhemoglobin Carboxyhemoglobin Methemoglobin Reduced Hemoglobin Total Hemoglobin O2 Delivery Device O2 Liters/Min Minute Volume Vent Rate Vent Mode FiO2 Tidal Volume PEEP Peak Inspir Pressure Pressure Support Sodium 140 Potassium 3.7 Chloride 107 Carbon Dioxide 28 Anion Gap 5 BUN 46 H D Creatinine 2.40 H Estim Creat Clear Calc 22 Estimated GFR 20 L Glucose 183 H POC Capillary Glucose 242 H 161 H Calcium 8.5 Phosphorus 2.6 Magnesium 2.0 Total Bilirubin 0.4 AST 39 H ALT 22 Alkaline Phosphatase 100 Total Protein 6.0 L Albumin 3.0 L Stl Occult Blood (IFOB) Blood Type Antibody Screen Crossmatch 01/18/24 01/18/24 05:57 07:55 WBC RBC Hgb Hct MCV MCH MCHC RDW Plt Count MPV APTT Puncture Site Left brachial ABG pH 7.535 H* ABG pCO2 31.1 L ABG pO2 92.1 ABG PO2/FiO2 Ratio 4.39 ABG HCO3 25.7 ABG O2 Saturation 97.9 ABG O2 Content 13.0 L ABG Base Excess 3.3 A-a Gradient 20.4 Oxyhemoglobin 97.0 Carboxyhemoglobin 0.4 Methemoglobin 0.3 Reduced Hemoglobin 2.3 Total Hemoglobin 9.4 L O2 Delivery Device Ventilator O2 Liters/Min Not Reportable Minute Volume 100.0 Vent Rate Not Reportable Vent Mode Asv FiO2 21 Tidal Volume Not Reportable PEEP 5 Peak Inspir Pressure Not Reportable Pressure Support Not Reportable Sodium Potassium Chloride Carbon Dioxide Anion Gap BUN Creatinine Estim Creat Clear Calc Estimated GFR Glucose POC Capillary Glucose 179 H Calcium Phosphorus Magnesium Total Bilirubin AST ALT Alkaline Phosphatase Total Protein Albumin Stl Occult Blood (IFOB) Blood Type Antibody Screen Crossmatch
--- NOTE | 2024-01-18 09:43 | P.OP_ITS ---
Procedure Note - Detailed Date of Procedure 01/18/24 Pre-op Diagnosis Left lower extremity DVT Chronic blood loss Post-op Diagnosis Same Procedure Performed Placement of inferior vena cava filter with intraoperative fluoroscopy. Surgeon Kenneth Noland MD Anesthesia General Indications Patient is a 63-year-old female who is intubated in the intensive care unit. She was initially admitted for sepsis and severe metabolic acidosis. She had urosepsis. She subsequent had acute renal failure and is on hemodialysis. She is still on the ventilator and now has a left lower extremity DVT. Her hemoglobin has been steadily decreasing and she has needed blood transfusions. [employer] feels that she may be losing blood from an unknown source and heparin drip will need to be stopped. I have been asked to place the IVC filter since the heparin drip will need to be stopped to protect her from suffering a saddle embolus. Findings None significant Description of Procedure After informed consent was obtained from the patient's family she was then brought from the intensive care unit to the cardiac catheterization suite intubated. She was then placed onto the fluoroscopy bed and she was then prepp ed and draped usual sterile fashion. A time-out was then performed correctly identifying the patient as well as procedure to be performed. I then proceeded to palpate the right common femoral arterial pulse. I then injected about 10cc of 1% lidocaine just medial to the palpable pulse in the subcutaneous tissues. A long 18gauge spinal needle was then used to cannulate the right femoral vein on the 1st pass without any difficulty. There was return of dark venous appearing blood. A long guidewire was advanced through the needle into the right femoral vein and subsequently into the right iliac vein up into the inferior vena cava. Intraoperative fluoroscopy was then used to confirm that the guidewire was in the inferior vena cava. I then identified the T12 vertebral body on fluoroscopy. A marker was placed external to the abdominal on the drapes to emory this area. I then enlarged the skin incision at the insertion site of the guidewire with a scalpel and then advanced serial dilators over the guidewire. I then advanced the point sheath into the distal inferior vena cava and full-strength Omnipaque contrast was injected to of obtain a venogram. The right renal vein was seen to be coming off at the level of the L2 vertebral body. I made sure that the tip of the sheath was well below the L2 vertebral body and then the filter was advanced through the deploying sheath and deployed at the level of the L4 vertebral body. The most distal part of the filter was just above the bifurcation of the common iliac veins protecting the patient from DVT from either side. The tip of the filter was well below the takeoff to the right renal vein. The filter deployed completely in a straight vertical orientation without any tipping of the filter. At this point a completion venogram was obtained with fluoroscopy. Then proceeded flushed the the sheath with saline solution and then the sheath was removed from the right femoral vein. Pressure was then held on the area to achieve hemostasis. A single 3-0 Vicryl suture was placed in the subcutaneous tissues in the skin edges were approximated skin glue. The patient tolerated the procedure well no complications. All sponges, needles, and instrument counts were correct at the end procedure. EBL was _10__cc. The patient was awakened and taken to recovery in stable and satisfactory condition. Implants IVC filter placed a distal inferior vena cava. See OR record for details of the specific filter. Estimated Blood Loss 10 Urine Output 1,100 Drains No Packing No Pathology None sent Complications No immediate complications Condition Stable Disposition ICU [facility] Billing Surgery - Charge Forward: Surgery Billing
--- NOTE | 2024-01-18 10:52 | PCFNICU ---
ICU Rounding Note: Pt current nutrition is Nepro at 50 ml/hr. Last recorded weight is 78.1 kg, down from 79.5 kg on admit. Bowel Motility: +BM reported 01/16 Labs Reviewed:Glu 183, Cr 2.4,BUN 46, GFR 20, Alb 3.0,Hct 27.4,Hgb 8.4 Meds Noted:Heparin, Keppra, Protonix, NovoLog, Lantus. Skin: WNL Additional Notes: Patient was NPO for IVC filter today. Plans to restart tube feedings of Nepro at 50 ml/hr. Flush decreased from 100 to 50 ml q 4 hours. Plans for Dialysis today. Agree with diet orders. Following daily in ICU rounds. Monitoring tube feeding tolerance, labs, weights, output, plan of care and reassess Monday and Monday.
[2024-01-18 11:19] LABS: Glucose Point of Care 139 mg/dl (65-105)
[2024-01-18] MEDS: ALBUMIN HUMAN 25% 12.5 GM/50ML 100 ML 100 GM (13:17)
--- NOTE | 2024-01-18 13:28 | P.PNNP_ITS ---
Progress Note: A&P Assessment and Plan (1) Acute kidney failure: Code(s): N17.9 - Acute kidney failure, unspecified Status: Acute Assessment and Plan: * baseline creatinine not known * reportedly has some underlying renal insufficiency/CKD per family * still awaiting outside records * evaluation to date noted: * CT of abd/pelvis and renal ultrasound negative for obstruction * urine eosinophils negative * CPK normal * urine electrolytes non-prerenal * UA suggestive of infection * proteinuria noted complicated by severe acidosis and hyperkalemia on admission * etiology likely multifactorial: * infection/sepsis * hemodynamic instability/shock * SRINIVAS-I + HCTZ use prior to admission * possible prerenal factors * metformin use prior to admission * continued BP medications prior to admission * no improvement in mental status with dialytic interventions * stable electrolytes but declining urine output noted * HD yesterday; DUF today for fluid removal (2) Septic shock: Code(s): A41.9 - Sepsis, unspecified organism; R65.21 - Severe sepsis with septic shock Status: Resolved Assessment and Plan: * resolved * initially normotensive on presentation * however, worsening hypotension in the ER * s/p aggressive IVF resuscitation * presumed source = aspiration pneumonia + UTI * blood and urine cultures negative -- still with on/off fevers * sputum culture showed yeast * on antibiotics * off pressors * follow hemodynamics (3) Acute respiratory failure: Code(s): J96.00 - Acute respiratory failure, unspecified whether with hypoxia or hypercapnia Status: Acute Assessment and Plan: * due to AMS + emesis and concerns for aspiration and inability to protect airway * intubated and on mechanical ventilation * continue ventilator support - off sedation * weaning as tolerated but mentation is still an issue (4) Encephalopathy: Code(s): G93.40 - Encephalopathy, unspecified Status: Acute Assessment and Plan: * as noted by presentation of altered mental status, delirium, and confusion * CT of brain shows several strokes * TSH and ammonia levels noted * HD did not help the mental status * still unresponsive (5) Stroke: Code(s): I63.9 - Cerebral infarction, unspecified Status: Acute Assessment and Plan: * as noted by repeat CT of head on 01/11: * Extensive bilateral acute infarcts in the expected distributions of the bilateral middle cerebral arteries. * presumably secondary to hypotension * Echo did not show any thrombus or ASD * remains unresponsive at this time (6) Anemia: Code(s): D64.9 - Anemia, unspecified Status: Acute Assessment and Plan: * noted drop in H/H by labs on 01/16 * was on heparin gtt for left LE DVT (but off) * PRBC transfusion per protocol * ALICE with dialysis * follow trend of H/H (7) Deep vein thrombosis of left lower extremity: Code(s): I82.402 - Acute embolism and thrombosis of unspecified deep veins of left lower extremity Status: Acute Assessment and Plan: * as noted by LE dopplers * s/p IVC filter placement on 01/18/24 (8) Insulin dependent diabetes mellitus: Status: Chronic Assessment and Plan: * follow accu-checks * 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 Subjective Date/time seen: 01/18/24 13:28 Interval history: Follow-up for acute kidney injury/acute renal failure. (on chronic kidney disease?) Tolerated dialysis treatment yesterday but fluid removal was limited due significant bouts of hypotension; tolerating dry ultrafiltration at the time of my visit with better hemodynamics noted (seen on DUF at 1:20PM); remains intubated and on mechanical ventilation and off sedation with no improvement in mentation; urine output has been low and developing issues with edema; labile BP noted with ongoing low grade fevers/temperatures; s/p IVC filer placement earlier today. Exam Narrative: General: somewhat ill appearing female intubated and on mechanical ventilation Heart: normal S1 and S2; no rub Lungs: coarse breath sounds bilaterally Abdomen: soft, nontender, nondistended, positive bowel sounds Extremities: no cyanosis or clubbing; no edema Skin: no nodules Objective Data Vital Signs Vital Signs: Vital Signs Temp Pulse Resp BP Pulse Ox O2 Del Method FiO2 01/18/24 13:15 94 150/64 H 01/18/24 13:05 94 164/67 H 01/18/24 13:05 21 01/18/24 12:40 100 F H 94 17 160/72 H 100 01/18/24 13:16 93 100 Mechanical Ventilation 01/18/24 12:00 99.9 F H 93 17 113/64 100 01/18/24 12:00 21 01/18/24 12:00 89 14 100 Mechanical Ventilation 01/18/24 12:00 88 01/18/24 11:50 99.8 F H 93 20 156/73 H 100 01/18/24 11:21 99.4 F 85 14 136/72 100 01/18/24 10:50 99.2 F 93 19 166/75 H 100 01/18/24 10:35 99.1 F 91 16 181/74 H 100 01/18/24 10:00 89 01/18/24 10:20 99.1 F 90 17 164/82 H 100 01/18/24 10:05 99.1 F 89 17 144/63 H 100 01/18/24 10:00 86 100 Mechanical Ventilation 01/18/24 09:50 99.4 F 86 17 151/71 H 100 01/18/24 08:00 99.8 F H 85 15 162/77 H 100 01/18/24 08:00 21 01/18/24 08:00 85 15 100 Mechanical Ventilation 01/18/24 08:00 80 01/18/24 08:00 84 100 Mechanical Ventilation 01/18/24 07:15 86 100 Mechanical Ventilation 01/18/24 06:09 100.1 F H 01/18/24 06:00 100.1 F H 83 14 132/65 100 01/18/24 06:00 82 01/18/24 04:00 89 01/18/24 05:32 83 100 Mechanical Ventilation 01/18/24 05:09 100.2 F H 01/18/24 04:59 94 01/18/24 04:00 99.9 F H 93 14 181/75 H 100 01/18/24 04:00 21 01/18/24 04:00 Mechanical Ventilation 01/18/24 02:25 90 100 Mechanical Ventilation 01/18/24 02:33 99.7 F H 85 13 162/67 H 100 01/18/24 02:00 99.7 F H 89 13 180/75 H 100 01/18/24 02:00 89 01/18/24 00:00 80 01/18/24 00:00 99.5 F 79 13 142/67 H 100 01/17/24 23:23 81 13 100 Mechanical Ventilation 01/17/24 23:23 21 01/17/24 22:56 96 100 Mechanical Ventilation 01/17/24 22:27 83 01/17/24 21:44 100.7 F H 01/17/24 22:00 100.7 F H 83 15 96/56 L 100 01/17/24 22:00 81 01/17/24 20:00 100.7 F H 84 14 127/63 100 01/17/24 20:00 83 14 100 Mechanical Ventilation 21 01/17/24 20:00 21 01/17/24 20:44 100.9 F H 01/17/24 20:32 83 100 Mechanical Ventilation 21 01/17/24 18:00 88 01/17/24 18:00 99.9 F H 89 14 118/66 100 01/17/24 17:26 99.2 F 87 12 148/66 H 100 01/17/24 17:16 76 134/80 01/17/24 17:32 87 100 Mechanical Ventilation 21 01/17/24 17:00 85 145/75 H 01/17/24 16:45 83 112/68 Intake/Output Intake/Output: Intake & Output 01/15/24 01/16/24 01/17/24 01/18/24 23:59 23:59 23:59 23:59 Intake Total 2254 2098.8 2300.8 650 Output Total 1775 1269 843 7908 Balance 479 848.8 1375.8 -800 Meds/Results Medications: Active Medications Generic Name Dose Route Start Last Admin Trade Name Freq PRN Reason Stop Dose Admin Acetaminophen 650 mg 01/10/24 08:02 01/18/24 05:09 Acetaminophen 325 Mg Tablet FEED TUBE 650 mg Q6H PRN Administration Mild Pain (1-3) or Fever Amlodipine Besylate 10 mg 01/11/24 14:05 01/17/24 08:44 Amlodipine Besylate 10 Mg Tablet FEED TUBE 10 mg DAILY CARMELA Administration Aspirin 325 mg 01/12/24 16:00 01/17/24 08:43 Aspirin 325 Mg Tablet FEED TUBE 325 mg DAILY@0800 CARMELA Administration Atorvastatin Calcium 40 mg 01/13/24 09:00 01/18/24 08:15 Atorvastatin 40 Mg Tablet FEED TUBE 40 mg DAILY CARMELA Administration Dextrose 12.5 gm 01/07/24 13:18 Dextrose 50% 25 Gm/50 Ml Syringe IV PUSH PRN PRN Hypoglycemia Protocol Epoetin Dane 20,000 units 01/18/24 20:00 01/18/24 15:00 Epoetin Dane 20,000 Units/Ml Vial IV PUSH 10/17/24 20:01 20,000 units ONCE ONE Administration Epoetin Dane-epbx 10,000 units 01/12/24 09:20 01/17/24 08:44 Epoetin Dane-Epbx 10,000 Units/Ml Vial SUB-Q 10,000 units MOWEFR@09 CARMELA Administration Glucagon 1 mg 01/07/24 13:18 Glucagon For Inj 1 Mg Vial IM PRN PRN Hypoglycemia Protocol Glucose 15 gm 01/07/24 13:18 Glucose Oral Gel 15 Gm Of Glucse In 37.5 Gm Tube PO PRN PRN Hypoglycemia Protocol Hydralazine HCl 10 mg 01/18/24 02:20 01/18/24 05:40 Hydralazine 10 Mg Tablet PO Not Given Q6HR [facility] Dextrose 1,000 mls @ 100 mls/hr 01/07/24 13:18 Dextrose 5% 1,000 Ml IVPB PRN PRN Hypoglycemia Protocol Albumin Human 50 mls @ 999 mls/hr 01/07/24 17:11 01/12/24 10:30 Albutein IVPB 02/06/24 17:10 Infused Q10M PRN Infusion HYPOTENSION Levetiracetam 500 mg in 100 mls @ 400 mls/hr 01/07/24 21:00 01/17/24 21:00 Keppra Iv IVPB Infused Q24H CARMELA Infusion Insulin Aspart 4 - 8 units 01/10/24 07:55 01/18/24 11:15 Insulin Aspart (*Bkc) 100 Units/Ml SUB-Q Not Given Q4H [facility] Protocol Insulin Glargine 60 units 01/17/24 09:00 01/18/24 07:48 Insulin Glargine (*Bkc) 100 Units/Ml SUB-Q Not Given Q12H [facility] Labetalol HCl 10 mg 01/18/24 08:37 Labetalol Hcl Inj 100 Mg/20 Ml Vial IV PUSH Q4H PRN Hypertension Metoprolol Tartrate 100 mg 01/16/24 09:00 01/17/24 08:43 Metoprolol Tartrate 50 Mg Tab FEED TUBE 100 mg Q12HR [facility] Administration Multi-Ingred Cream/Lotion/Oil/Oint 1 applic 01/07/24 21:00 01/18/24 08:15 Mineral Oil/White Petrolatum Ointment EACH EYE 1 applic Q12HR CARMELA Administration Pantoprazole Sodium 40 mg 01/07/24 21:00 01/18/24 08:15 Pantoprazole Sodium Iv 40 Mg Vial IV PUSH 40 mg Q12HR CARMELA Administration Radiology Results: ITS Impressions Abdomen/Pelvis CT 01/07/24 16:52 IMPRESSION: No acute abdominopelvic process. Specifically, there is no CT evidence of bowel obstruction. No definite evidence of renal injury, noting that low-grade renal injury as can be difficult to detect without contrast. Renal Ultrasound 01/08/24 10:47 IMPRESSION: 1. Normal kidney sizes. No hydronephrosis. Chest/Abdomen/Pelvis CT 01/12/24 15:08 IMPRESSION: Interval enlargement of the liver, when compared with previous examination. Flattening of the inferior vena cava suggesting severe hypovolemia. Interval development of basilar atelectasis and trace bilateral pleural effusions. No additional findings which represents a change from prior examination performed 01/07/2024. Supportive devices are in good position. Redemonstration of multiple stones within the gallbladder which is not distended. Head CT 01/12/24 15:31 IMPRESSION: 1. 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 2. Large distribution of chronic encephalomalacia in the expected distribution of left middle cerebral artery. Abdomen Ultrasound 01/13/24 09:31 IMPRESSION: 1. Cholelithiasis. 2. Normal liver Doppler. Arterial/Peripheral Duplex 01/13/24 09:31 IMPRESSION: 1. Cholelithiasis. 2. Normal liver Doppler. Venous Doppler Study 01/15/24 17:14 IMPRESSION: 1. Deep vein thrombosis involving left common femoral vein. ADDENDUM: 01/15/24 [id number] I called this result to Apurva Mclean. Abdomen X-Ray 01/16/24 06:03 Impression: NG tube in satisfactory position. Chest X-Ray 01/18/24 06:16 Impression: Probable linear scarring or atelectasis left lung base. Stable support tubes. Labs Labs: Laboratory Tests 01/18/24 05:13 01/18/24 05:13 Calcium 8.5 Phosphorus 2.6 Magnesium 2.0 Total Bilirubin 0.4 AST 39 H ALT 22 Alkaline Phosphatase 100 Total Protein 6.0 L Albumin 3.0 L
[2024-01-18] MEDS: EPOETIN ALFA 20,000 UNITS/ML VIAL 20000 UNITS IV PUSH (15:00)
[2024-01-18] MEDS: HEPARIN SODIUM 1,000 UNITS/ML VIAL 4000 UNITS IV PUSH (16:16)
[2024-01-18 16:45] LABS: Glucose Point of Care 241 mg/dl (65-105)
[2024-01-18] MEDS: INSULIN GLARGINE (*BKC) 100 UNITS/ML 60 UNITS SUB-Q (20:11)
[2024-01-18] MEDS: levETIRAcetam 500MG/NACL 100ML 500 MG/100 ML BAG 400 MG IVPB (20:11)
[2024-01-18 20:26] LABS: Glucose Point of Care 314 mg/dl (65-105)
[2024-01-18 23:36] LABS: Glucose Point of Care 273 mg/dl (65-105)
[2024-01-19] VITALS (22 sets, daily range): BP systolic 111–163; BP diastolic 58–74; PULSE 94–112; RESP 11–20; TEMP 37.9–38.4; O2SAT 98–100
[2024-01-19 05:12] LABS: Glucose Point of Care 335 mg/dl (65-105)
[2024-01-19] MEDS: INSULIN ASPART (*BKC) 100 UNITS/ML SUB-Q ×6 (05:18→23:24)
[2024-01-19 05:28] LABS: Alveolar/Arterial O2 Gradient 32.4 mmHg; Base Excess ABG 2.2 mEq/l (+/-2.0); Fractional Inspired Oxygen 21 %; HCO3 ABG 25.1 mEq/l (22.0-26.0); Oxygen Content ABG 14.9 %vol (16.0-22.0); Oxygen Saturation ABG 96.5 % (95.0-100.0); Oxyhemoglobin 95.6 % THb (90.0-100.0); PCO2 ABG 33.1 mmHg (35.0-45.0); PO2 ABG 77.7 mmHg (80.0-100.0); pH ABG 7.498 (7.350-7.450)
[2024-01-19 05:29] LABS: Basophils Absolute Auto 0.1 K/mm3 (0.0-0.1); Basophils Percent Auto 0.6 % (0.2-1.2); Eosinophils Absolute Auto 0.3 K/mm3 (0-0.3); Eosinophils Percent Auto 1.8 % (0-4.4); Hematocrit 27.3 % (37.0-47.0); Hemoglobin 8.4 g/dL (12.0-15.0); Immature Granulocyte Absolute 0.39 K/mm3 (0.00-0.031); Immature Granulocyte Percent A 2.9 % (0-0.5); Lymphocytes Absolute Auto 1.48 K/mm3 (0.9-3.2); Lymphocytes Percent Auto 10.9 % (18.3-44.2); Mean Corpuscular HGB Conc 30.8 g/dl (32-36); Mean Corpuscular Hemoglobin 29.4 pg (26-34); Mean Corpuscular Volume 95.5 fl (80-100); Mean Platelet Volume 11.7 fl (7.4-10.4); Monocytes Absolute Auto 0.7 K/mm3 (0.1-0.6); Monocytes Percent Auto 5.5 % (2.6-8.5); Neutrophils Absolute Auto 10.6 K/mm3 (1.3-6.7); Neutrophils Percent Auto 78.3 % (45.5-73.1); Nucleated Red Blood Cells Perc 1.8 % (0.0-0.2); Platelet Count Result 368 k/mm3 (150-375); Red Blood Count 2.86 M/mm3 (4.2-5.4); Red Cell Distribution Width 17.1 % (11.5-14.5); White Blood Count 13.5 K/mm3 (4.5-10.0)
[2024-01-19 05:30] LABS: Arterial Blood Gas PEEP 5 cmH2O; Arterial Blood Gas Tidal Volume 400 ml; Arterial Blood Gas Vent Mode CMV; Arterial Blood Gas Ventilator rate 14 /MIN; Device VENTILATOR; Site Drawn LEFT BRACHIAL
[2024-01-19 05:45] LABS: Alanine Aminotransferase 23 U/L (6-35); Albumin Level 3.3 g/dL (3.5-5.1); Alkaline Phosphatase 110 U/L (38-126); Anion Gap 9 mmol/L (4-12); Aspartate Amino Transferase 35 U/L (14-36); Bilirubin,Total 0.5 mg/dL (0.2-1.3); Blood Urea Nitrogen 57 mg/dL (7-17); Calcium 8.8 mg/dL (8.4-10.2); Carbon Dioxide 25 mmol/L (22-30); Chloride 104 mmol/L (98-107); Estimated CRCL calculation 17 ml/min; Estimated Glomerular Filt Rate 15; Glucose 360 mg/dL (65-110); Magnesium 2.1 mg/dL (1.6-2.3); Phosphorus 3.4 mg/dL (2.5-4.5); Potassium 3.9 mmol/L (3.4-5.0); Sodium 138 mmol/L (137-145)
[2024-01-19] MEDS: ATORVASTATIN 40 MG TABLET FEED TUBE (08:37)
[2024-01-19 08:38] LABS: Glucose Point of Care 334 mg/dl (65-105)
[2024-01-19] MEDS: EPOETIN ALFA-EPBX 10,000 UNITS/ML VIAL 10000 UNITS SUB-Q (08:38)
[2024-01-19] MEDS: INSULIN GLARGINE (*BKC) 100 UNITS/ML 60 UNITS SUB-Q ×2 (08:38→20:03)
[2024-01-19] MEDS: PANTOPRAZOLE SODIUM IV 40 MG VIAL IV PUSH ×2 (08:39→20:03)
[2024-01-19] MEDS: MINERAL OIL/WHITE PETROLATUM OINTMENT 1 APPLIC EACH EYE ×2 (08:39→20:04)
--- NOTE | 2024-01-19 10:10 | P.PNNP_ITS ---
Progress Note: A&P Assessment and Plan (1) Acute kidney failure: Code(s): N17.9 - Acute kidney failure, unspecified Status: Acute Assessment and Plan: * baseline creatinine not known * reportedly has some underlying renal insufficiency/CKD per family * still awaiting outside records * evaluation to date noted: * CT of abd/pelvis and renal ultrasound negative for obstruction * urine eosinophils negative * CPK normal * urine electrolytes non-prerenal * UA suggestive of infection * proteinuria noted complicated by severe acidosis and hyperkalemia on admission * etiology likely multifactorial: * infection/sepsis * hemodynamic instability/shock * SRINIVAS-I + HCTZ use prior to admission * possible prerenal factors * metformin use prior to admission * continued BP medications prior to admission * no improvement in mental status with dialytic interventions * stable electrolytes but declining urine output noted * hold HD today (2) Septic shock: Code(s): A41.9 - Sepsis, unspecified organism; R65.21 - Severe sepsis with septic shock Status: Resolved Assessment and Plan: * resolved * initially normotensive on presentation * however, worsening hypotension in the ER * s/p aggressive IVF resuscitation * presumed source = aspiration pneumonia + UTI * blood and urine cultures negative -- still with on/off fevers * sputum culture showed yeast * on antibiotics * off pressors * follow hemodynamics (3) Acute respiratory failure: Code(s): J96.00 - Acute respiratory failure, unspecified whether with hypoxia or hypercap [place]wan Status: Acute Assessment and Plan: * due to AMS + emesis and concerns for aspiration and inability to protect airway * intubated and on mechanical ventilation * continue ventilator support - off sedation * weaning as tolerated but mentation is still an issue (4) Encephalopathy: Code(s): G93.40 - Encephalopathy, unspecified Status: Acute Assessment and Plan: * as noted by presentation of altered mental status, delirium, and confusion * CT of brain shows several strokes * TSH and ammonia levels noted * HD did not help the mental status * still unresponsive (5) Stroke: Code(s): I63.9 - Cerebral infarction, unspecified Status: Acute Assessment and Plan: * as noted by repeat CT of head on 01/11: * Extensive bilateral acute infarcts in the expected distributions of the bilateral middle cerebral arteries. * presumably secondary to hypotension * Echo did not show any thrombus or ASD * remains unresponsive at this time (6) Anemia: Code(s): D64.9 - Anemia, unspecified Status: Acute Assessment and Plan: * noted drop in H/H by labs on 01/16 * was on heparin gtt for left LE DVT (but off now) * PRBC transfusion per protocol * ALICE with dialysis * follow trend of H/H (7) Deep vein thrombosis of left lower extremity: Code(s): I82.402 - Acute embolism and thrombosis of unspecified deep veins of left lower extremity Status: Acute Assessment and Plan: * as noted by LE dopplers * s/p IVC filter placement on 01/18/24 (8) Insulin dependent diabetes mellitus: Status: Chronic Assessment and Plan: * follow accu-checks * 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 Subjective Date/time seen: 01/19/24 10:10 Interval history: Follow-up for acute kidney injury/acute renal failure. (on chronic kidney disease?) Status post IVC filter placement and dry ultrafiltration yesterday and tolerated both interventions without any issues or problems; no change in mental status remains intubated and on venllator support; labile BP remains an issue as well; continues to have on/off fevers with Tmax of 101.2?; urine output remain on the low side as well. Exam Narrative: General: somewhat ill appearing female intubated and on mechanical ventilation Heart: normal S1 and S2; no rub Lungs: coarse breath sounds bilaterally Abdomen: soft, nontender, nondistended, positive bowel sounds Extremities: no cyanosis or clubbing; no edema Skin: warm and dry Objective Data Vital Signs Vital Signs: Vital Signs Temp Pulse Resp BP Pulse Ox O2 Del Method FiO2 01/19/24 10:00 101 F H 108 H 14 146/68 H 99 01/19/24 08:00 101 F H 100 17 163/65 H 98 01/19/24 08:04 102 H 99 Mechanical Ventilation 01/19/24 04:00 100 01/19/24 04:00 21 01/19/24 04:00 101.1 F H 100 16 143/69 H 100 01/19/24 04:00 98 16 99 Mechanical Ventilation 01/19/24 02:00 101.2 F H 100 16 137/62 100 01/19/24 02:00 100 01/19/24 05:07 98 99 Mechanical Ventilation 01/19/24 00:00 98 01/19/24 00:00 101.2 F H 96 16 111/58 L 99 01/19/24 00:00 21 01/19/24 00:20 102 H 20 98 Mechanical Ventilation 21 01/18/24 23:30 102 H 98 Mechanical Ventilation 01/18/24 22:00 102 H 01/18/24 20:00 95 01/18/24 22:00 100.7 F H 102 H 20 145/66 H 100 01/18/24 20:00 105 H 15 99 Mechanical Ventilation 01/18/24 21:50 105 H 99 Mechanical Ventilation 01/18/24 19:39 101 F H 01/18/24 20:00 21 01/18/24 20:00 101.0 F H 92 15 102/55 L 99 01/18/24 18:39 101.1 F H 01/18/24 18:00 100.8 F H 99 16 106/73 100 01/18/24 18:00 102 H 01/18/24 16:15 100.2 F H 99 17 143/65 H 99 01/18/24 16:05 107 H 117/66 01/18/24 16:03 103 H 100 Mechanical Ventilation 01/18/24 16:00 100.2 F H 99 17 143/65 H 100 01/18/24 16:00 101 H 17 100 Mechanical Ventilation 01/18/24 16:00 109 H 01/18/24 15:40 100.0 F H 109 H 18 170/88 H 100 01/18/24 14:40 99.9 F H 102 H 17 159/70 H 100 01/18/24 14:00 99.9 F H 102 H 20 172/76 H 100 01/18/24 14:00 102 H 01/18/24 14:30 105 H 175/78 H 01/18/24 14:15 102 H 172/76 H 01/18/24 14:00 99 159/77 H 01/18/24 16:00 107 H 147/67 H 01/18/24 15:45 110 H 170/88 H 01/18/24 15:30 108 H 153/78 H 01/18/24 15:15 100 145/70 H 01/18/24 15:00 101 H 143/69 H 01/18/24 14:45 103 H 159/70 H Intake/Output Intake/Output: Intake & Output 01/16/24 01/17/24 01/18/24 01/19/24 23:59 23:59 23:59 23:59 Intake Total 2098.8 2300.8 1325 747 Output Total 0352 815 8265 125 Balance 848.8 1375.8 -2900 622 Meds/Results Medications: Active Medications Generic Name Dose Route Start Last Admin Trade Name Freq PRN Reason Stop Dose Admin Acetaminophen 650 mg 01/10/24 08:02 01/19/24 11:32 Acetaminophen 325 Mg Tablet FEED TUBE 650 mg Q6H PRN Administration Mild Pain (1-3) or Fever Amlodipine Besylate 10 mg 01/11/24 14:05 01/17/24 08:44 Amlodipine Besylate 10 Mg Tablet FEED TUBE 10 mg DAILY CARMELA Administration Aspirin 325 mg 01/12/24 16:00 01/17/24 08:43 Aspirin 325 Mg Tablet FEED TUBE 325 mg DAILY@0800 CARMELA Administration Atorvastatin Calcium 40 mg 01/13/24 09:00 01/19/24 08:37 Atorvastatin 40 Mg Tablet FEED TUBE 40 mg DAILY CARMELA Administration Dextrose 12.5 gm 01/07/24 13:18 Dextrose 50% 25 Gm/50 Ml Syringe IV PUSH PRN PRN Hypoglycemia Protocol Epoetin Dane-epbx 10,000 units 01/12/24 09:20 01/19/24 08:38 Epoetin Dane-Epbx 10,000 Units/Ml Vial SUB-Q 10,000 units MOWEFR@09 CARMELA Administration Glucagon 1 mg 01/07/24 13:18 Glucagon For Inj 1 Mg Vial IM PRN PRN Hypoglycemia Protocol Glucose 15 gm 01/07/24 13:18 Glucose Oral Gel 15 Gm Of Glucse In 37.5 Gm Tube PO PRN PRN Hypoglycemia Protocol Hydralazine HCl 10 mg 01/18/24 02:20 01/18/24 05:40 Hydralazine 10 Mg Tablet PO Not Given Q6HR CARMELA Dextrose 1,000 mls @ 100 mls/hr 01/07/24 13:18 Dextrose 5% 1,000 Ml IVPB PRN PRN Hypoglycemia Protocol Albumin Human 50 mls @ 999 mls/hr 01/07/24 17:11 01/12/24 10:30 Albutein IVPB 02/06/24 17:10 Infused Q10M PRN Infusion HYPOTENSION Levetiracetam 500 mg in 100 mls @ 400 mls/hr 01/07/24 21:00 01/18/24 20:11 Keppra Iv IVPB 400 mls/hr Q24H CARMELA Administration Insulin Aspart 4 - 8 units 01/10/24 07:55 01/19/24 12:09 Insulin Aspart (*Bkc) 100 Units/Ml SUB-Q 8 units Q4H CARMELA Administration Protocol Insulin Glargine 60 units 01/17/24 09:00 01/19/24 08:38 Insulin Glargine (*Bkc) 100 Units/Ml SUB-Q 60 units Q12H CARMELA Administration Labetalol HCl 10 mg 01/18/24 08:37 Labetalol Hcl Inj 100 Mg/20 Ml Vial IV PUSH Q4H PRN Hypertension Metoprolol Tartrate 100 mg 01/16/24 09:00 01/17/24 08:43 Metoprolol Tartrate 50 Mg Tab FEED TUBE 100 mg Q12HR CARMELA Administration Multi-Ingred Cream/Lotion/Oil/Oint 1 applic 01/07/24 21:00 01/19/24 08:39 Mineral Oil/White Petrolatum Ointment EACH EYE 1 applic Q12HR CARMELA Administration Pantoprazole Sodium 40 mg 01/07/24 21:00 01/19/24 08:39 Pantoprazole Sodium Iv 40 Mg Vial IV PUSH 40 mg Q12HR CARMELA Administration Radiology Results: ITS Impressions Abdomen/Pelvis CT 01/07/24 16:52 IMPRESSION: No acute abdominopelvic process. Specifically, there is no CT evidence of bowel obstruction. No definite evidence of renal injury, noting that low-grade renal injury as can be difficult to detect without contrast. Renal Ultrasound 01/08/24 10:47 IMPRESSION: 1. Normal kidney sizes. No hydronephrosis. Chest/Abdomen/Pelvis CT 01/12/24 15:08 IMPRESSION: Interval enlargement of the liver, when compared with previous examination. Flattening of the inferior vena cava suggesting severe hypovolemia. Interval development of basilar atelectasis and trace bilateral pleural effusions. No additional findings which represents a change from prior examination performed 01/07/2024. Supportive devices are in good position. Redemonstration of multiple stones within the gallbladder which is not distended. Head CT 01/12/24 15:31 IMPRESSION: 1. 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 2. Large distribution of chronic encephalomalacia in the expected distribution of left middle cerebral artery. Abdomen Ultrasound 01/13/24 09:31 IMPRESSION: 1. Cholelithiasis. 2. Normal liver Doppler. Arterial/Peripheral Duplex 01/13/24 09:31 IMPRESSION: 1. Cholelithiasis. 2. Normal liver Doppler. Venous Doppler Study 01/15/24 17:14 IMPRESSION: 1. Deep vein thrombosis involving left common femoral vein. ADDENDUM: 01/15/24 [id number] I called this result to Apurva Mclean. Abdomen X-Ray 01/16/24 06:03 Impression: NG tube in satisfactory position. Chest X-Ray 01/19/24 07:20 Impression: Stable support tubes. Stable probable atelectasis or scarring left lung base versus possibly pne umonia. Labs Labs: Laboratory Tests 01/19/24 05:17 01/19/24 05:17 Calcium 8.8 Phosphorus 3.4 Magnesium 2.1 Total Bilirubin 0.5 AST 35 ALT 23 Alkaline Phosphatase 110 Total Protein 7.0 Albumin 3.3 L
--- NOTE | 2024-01-19 11:07 | PCNFU ---
Nutrition Follow-Up Complete: Inadequate energy intake related to mechanical ventilation, increased needs from dialysis as evidenced by need for full tube feeding Goal: Meet estimated nutrition needs Patient is meeting goal. We will continue current goal. Pt current nutrition is Nepro at 50 ml/hr Last recorded weight is 76.1 kg, down from 79.5 kg on admit. Bowel Motility: + BM reported 01/18 Labs Reviewed:Glu 360, Cr 3.10,GFR 15, Alb 3.3 Meds Noted:Keppra, Protonix, Lantus, NovoLog Skin: WNL Additional Notes: Patient remains on a mechanical vent. No sedation. Patient remains on tube feedings of Nepro at 50 ml/hr and tolerating per nursing. Tube feeding is providing 1980 kcal/89 gm protein/800 ml water. Flush 50 ml q 4 hours. Patient had dialysis on 01/17. IVC filter placed 01/17. Plans for family meeting tomorrow 01/19. Agree with diet orders. Monitoring tube feeding tolerance, labs, weights, output, plan of care Follow up daily in rounds, reassess Monday and Monday
[2024-01-19] MEDS: ACETAMINOPHEN 325 MG TABLET 650 MG FEED TUBE (11:32)
[2024-01-19 12:09] LABS: Glucose Point of Care 356 mg/dl (65-105)
--- NOTE | 2024-01-19 13:11 | P.PNINT_ITS ---
Progress Note: A&P Assessment and Plan (1) Stroke: Code(s): I63.9 - Cerebral infarction, unspecified Status: Acute Assessment and Plan: Patient presented with altered mental status but at that time patient was respiratory failure acute renal failure acidosis and sepsis. CT scan on presentation showed only old stroke and encephalomalacia Since then patient has not woken up despite holding sedation for multiple days and dialysis. 01/[address] was done which showed. 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 These are likely secondary to hypotension Echo did not show any thrombus or ASD Continue aspirin and statin Neurology following EEG 01/12 - This is an abnormal EEG due to presence of moderate diffuse background slowing suggested generalized cephalopathy. No significant change in neurological status (2) Encephalopathy: Code(s): G93.40 - Encephalopathy, unspecified Status: Acute Assessment and Plan: Patient presented with encephalopathy, altered mental status, delirium, confusion -most likely related to uremia, infection, severe acidosis and baseline flow malacia from past stroke TSH and ammonia normal Patient has been off sedation since 01/09/2024. Still not responsive.. Will continue hold sedatives. EEG as above Patient was dialyzed 01/11 to help with drug removal. Minimal improved Encephalopathy likely secondary to strokes. See above. Neurology following -patient has been off sedation since 01/09/2024, has not woken up -01/16: Ammonia levels are normal 01/11: Repeat CT scan of the brain IMPRESSION: 1. 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 2. Large distribution of chronic encephalomalacia in the expected distribution of left middle cerebral artery. 01/06: CT brain on admission IMPRESSION: 1. No acute intracranial process. 2. 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 3. Additional more diffuse likely age-related mild to moderate diffuse volume loss and mild scattered white matter hypoattenuation consistent with chronic small vessel ischemic disease. (3) Acute respiratory failure: Code(s): J96.00 - Acute respiratory failure, unspecified whether with hypoxia or hypercapnia Status: Acute Assessment and Plan: Patient had an episode of emesis in the ER, given her altered mental status encephalopathy, risk of aspiration with impending respiratory failure patient was intubated on 01/06/2025 -currently on CMV mode of ventilation, peep of 5, 21% FiO2 -ABG reviewed and currently on vent rate to 14 and tidal volume to 300 -patient tolerated ASV mode of ventilation, she was placed back on CMV mode since she was going for the IVC procedure -chest x-ray reviewed -sedation is on hold. -weaning will depend on improvement in mental status. (4) Acute kidney failure: Code(s): N17.9 - Acute kidney failure, unspecified Status: Acute Assessment and Plan: On chronic kidney injury, unknown cause, CT of the abdomen and pelvis did not show any hydronephrosis or urinary obstruction -significant lactic acidosis and metabolic acidosis -patient has a history of diabetes, hypertension which is likely the cause of chronic kidney disease -patient on lisinopril hydrochlorothiazide and metformin at home -patient was given a total of 3 L IV fluid bolus, 1 L in the ER and 2 L in the ICU -sodium bicarb IV pushes x4 in the ICU -patient was started on sodium bicarb infusion after discussing with Nephrology, which her was discontinued once hemodialysis was started -patient was started on hemodialysis and was dialyzed x 3 days -patient continues to have decent urine output - 01/11 patient was dialyzed again 1 L fluid was removed -continue to monitor urine output, electrolytes and renal function -01/16: worsening creatinine, increased edema, decreased urine output. Discussed with Nephrology, patient will dialyzed (5) Metabolic acidosis: Code(s): E87.20 - Acidosis, unspecified Status: Acute Assessment and Plan: RESOLVED Patient presented with significant metabolic acidosis and lactic acidosis. This could be combination of septic shock, acute kidney injury but also a possibility of metformin toxicity Patient received hemodialysis and IV bicarb. Acidosis has resolved. Further dialysis per Nephrology (6) Septic shock: Code(s): A41.9 - Sepsis, unspecified organism; R65.21 - Severe sepsis with septic shock Status: Acute Assessment and Plan: RESOLVED Patient hypotensive on presentation Patient was given IV fluid bolus followed by maintenance IV fluids -lactic acid has improved -Levophed weaned off -off IV fluids -source appears to be UTI. Urine and blood cultures are negative till now, STATUS POST CEFTRIAXONE -status post stress dose steroids - 01/10 continues to have fever although other markers of infection are improved as normal WBC. 01/10: Repeat blood cultures are negative x2 Clark catheter change 01/11 Minimal respiratory secretions, sputum cultures growing yeast which is likely a colonization Change Rocephin to cefepime and vancomycin 01/14: Patient continues to have low-grade fever but overall fever curve is down. White count is normal. CT scan of chest and pelvis does not show any area suggestive of infection. Clark catheter was changed. Procalcitonin level is also on the lower side. Continue cefepime but will discontinue vancomycin at this time. Cultures are negative till now. -lipase was within normal limits -01/15/2024: lower extremity venous Dopplers: Left common femoral vein DVT -01/14: patient was started on heparin infusion OFF all abx 01/18: Remains febrile, patient has been carl cultured this morning, WBC trending up -chest x-ray is not show any new infiltrates -holding antibiotics for now, if patient continues to spike fevers and WBC count increase tomorrow will add antibiotics (7) Diastolic dysfunction: Code(s): I51.89 - Other ill-defined heart diseases Status: Acute Assessment and Plan: Echo 01/11 Summary 1. Left ventricular systolic function is normal, estimated at 60-65%. 2. There is moderately increased left ventricular wall thickness. 3. Intact interatrial septum visualized by agitated saline imaging. 4. There is mild aortic valve calcification. 5. There is mild aortic valve stenosis with a peak velocity of 190 cm/s,mean gradient of 8 mmHg, and aortic valve area of 1.8 cm2. 6. There is mild tricuspid valve regurgitation. 7. Mild pulmonary hypertension, estimated pulmonary arterial systolicpressure is 46 mmHg. (8) Insulin dependent diabetes mellitus: Status: Chronic Assessment and Plan: Continue sliding scale insulin Accu-Cheks Lantus was increased and will dose b.i.d. (hold a.m. Lantus dose as patient is NPO for the procedure) (9) Right hemiparesis: Code(s): G81.91 - Hemiplegia, unspecified affecting right dominant side Status: Acute Assessment and Plan: History of left-sided cerebral hemisphere and CVA, residual mild aphasia and right-sided weakness (10) Seizures: Code(s): R56.9 - Unspecified convulsions Status: Acute Assessment and Plan: Patient has a history of seizures, on p.o. Keppra 500 mg p.o. q.12 hours Continue Keppra IV 500 mg IV q.24 (discuss with pharmacist) EEG negative for any seizure-like activity (11) Hypertension: Code(s): I10 - Essential (primary) hypertension Status: Acute Assessment and Plan: Blood pressures have been labile, will hold metoprolol, hydralazine and amlodipine for now -patient has p.r.n. labetalol (12) Anemia: Code(s): D64.9 - Anemia, unspecified Status: Acute Assessment and Plan: 01/16: Patient has been on heparin infusion for DVT in the right common femoral vein. Dropped hemoglobin this morning to 6.7 from 7.8. - heparin infusion Discontinued -stool for Hemoccult was Negative -01/17: IVC filter placement by surgery Plan DVT prophylaxis: Hold heparin infusion due to anemia Stress ulcer prophylaxis: Protonix IV q.12 hours Nutrition: Continue tube feeds Code Status: DNR Critical Care Time Spent: 32 minutes : Discuss with patient's son, Hakan, updated with patient's condition and plan of care. Family meeting on 01/20/2024 for further plan of care for the patient. Due to a high probability of clinically significant, life threatening deterioration, the patient required my highest level of preparedness to intervene emergently and I personally spent this critical care time directly and personally managing the patient. This critical care time included obtaining a history; examining the patient; pulse oximetry; ordering and review of studies; arranging urgent treatment with development of a management plan; evaluation of patient's response to treatment; frequent reassessment; and discussions with other providers. It was exclusive of separately billable procedures and treating other patients and teaching time. Please see Assessment and Plan section and the rest of the note for further information on patient assessment and treatment This dictation may have been done utilizing a voice recognition system. Attempts have been made to correct errors. However, there may be uncorrected grammatical, spelling, and recognitions errors present. Subjective Date/time seen: 01/19/24 13:11 Interval history: Reason for consult: Altered mental status, acute respiratory failure, severe metabolic acidosis, multiple strokes, DVT 01/19/2024: Patient seen and examined the ICU, remains intubated, on CMV mode of ventilation, peep of 5, 21% FiO2. Sedation has been off since 01/09/2024. Patient does not open eyes to name follows simple commands. Urine output has been low, remains edematous. She continues to have fevers with a T-max of 101.2?. Patient has had labile blood pressures. Patient 2500 mL in fluid removal yesterday with dialysis Review of Systems Review of Systems: ROS unobtainable: Yes unobtainable due to endotracheal tube, unobtainable due to medical condition and unobtainable due to mental status Exam Narrative: General: Intubated and sedated HEENT:? Pupils are equal and reactive to light, patient has positive corneal reflex, sclera is clear, ETT in place, facial puffiness noted Neck:? Supple, right IJ dialysis catheter in place Respiratory:? Coarse breath sounds bilaterally, decreased at bases no wheezing, adequate air entry Cardiac:? S1-S2 normal, regular rate and rhythm, Abdomen:? Soft, nontender, nondistended, hypoactive bowel sounds, old midline surgical scar noted Extremities:? Dry skin, decreased pedal pulses, pitting edema bilateral lower extremities Neuro:? Patient is intubated, off sedation, PERRL, patient withdraws to pain stimulus in bilateral lower extremities, decerebrate posturing of the upper extremities on pain stimuli. Skin:? Dry and flaky skin on lower extremities, skin is warm Psych:? Unable to assess at this time Objective Data Vital Signs Vital Signs: Vital Signs - 24 hr 01/18/24 13:16 01/18/24 14:45 01/18/24 15:00 Temperature Pulse Rate 93 103 H 101 H Respiratory Rate Blood Pressure 159/70 H 143/69 H Pulse Oximetry 100 Oxygen Delivery Mechanical Ventilation Fraction of Inspired Oxygen 21 01/18/24 15:15 01/18/24 15:30 01/18/24 15:45 Temperature Pulse Rate 100 108 H 110 H Respiratory Rate Blood Pressure 145/70 H 153/78 H 170/88 H Pulse Oximetry Oxygen Delivery Fraction of Inspired Oxygen 01/18/24 16:00 01/18/24 13:15 01/18/24 13:30 Temperature Pulse Rate 107 H 94 95 Respiratory Rate Blood Pressure 147/67 H 150/64 H 151/72 H Pulse Oximetry Oxygen Delivery Fraction of Inspired Oxygen 01/18/24 13:45 01/18/24 14:00 01/18/24 14:15 Temperature Pulse Rate 96 99 102 H Respiratory Rate Blood Pressure 143/69 H 159/77 H 172/76 H Pulse Oximetry Oxygen Delivery Fraction of Inspired Oxygen 01/18/24 14:30 01/18/24 13:40 01/18/24 14:00 Temperature 100.0 F H Pulse Rate 105 H 95 102 H Respiratory Rate 17 Blood Pressure 175/78 H 143/69 H Pulse Oximetry 100 Oxygen Delivery Fraction of Inspired Oxygen 01/18/24 14:00 01/18/24 14:40 01/18/24 15:40 Temperature 99.9 F H 99.9 F H 100.0 F H Pulse Rate 102 H 102 H 109 H Respiratory Rate 20 17 18 Blood Pressure 172/76 H 159/70 H 170/88 H Pulse Oximetry 100 100 100 Oxygen Delivery Fraction of Inspired Oxygen 01/18/24 16:00 01/18/24 16:00 01/18/24 16:00 Temperature 100.2 F H Pulse Rate 109 H 101 H 99 Respiratory Rate 17 17 Blood Pressure 143/65 H Pulse Oximetry 100 100 Oxygen Delivery Mechanical Ventilation Fraction of Inspired Oxygen 21 01/18/24 16:03 01/18/24 16:05 01/18/24 16:15 Temperature 100.2 F H Pulse Rate 103 H 107 H 99 Respiratory Rate 17 Blood Pressure 117/66 143/65 H Pulse Oximetry 100 99 Oxygen Delivery Mechanical Ventilation Fraction of Inspired Oxygen 21 01/18/24 18:00 01/18/24 18:00 01/18/24 18:39 Temperature 100.8 F H 101.1 F H Pulse Rate 102 H 99 Respiratory Rate 16 Blood Pressure 106/73 Pulse Oximetry 100 Oxygen Delivery Fraction of Inspired Oxygen 01/18/24 20:00 01/18/24 20:00 01/18/24 19:39 Temperature 101.0 F H 101 F H Pulse Rate 92 Respiratory Rate 15 Blood Pressure 102/55 L Pulse Oximetry 99 Oxygen Delivery Fraction of Inspired Oxygen 21 01/18/24 21:50 01/18/24 20:00 01/18/24 22:00 Temperature 100.7 F H Pulse Rate 105 H 105 H 102 H Respiratory Rate 15 20 Blood Pressure 145/66 H Pulse Oximetry 99 99 100 Oxygen Delivery Mechanical Ventilation Mechanical Ventilation Fraction of Inspired Oxygen 21 21 01/18/24 20:00 01/18/24 22:00 01/18/24 23:30 Temperature Pulse Rate 95 102 H 102 H Respiratory Rate Blood Pressure Pulse Oximetry 98 Oxygen Delivery Mechanical Ventilation Fraction of Inspired Oxygen 21 01/19/24 00:20 01/19/24 00:00 01/19/24 00:00 Temperature 101.2 F H Pulse Rate 102 H 96 Respiratory Rate 20 16 Blood Pressure 111/58 L Pulse Oximetry 98 99 Oxygen Delivery Mechanical Ventilation Fraction of Inspired Oxygen 21 21 01/19/24 00:00 01/19/24 05:07 01/19/24 02:00 Temperature Pulse Rate 98 98 100 Respiratory Rate Blood Pressure Pulse Oximetry 99 Oxygen Delivery Mechanical Ventilation Fraction of Inspired Oxygen 21 01/19/24 02:00 01/19/24 04:00 01/19/24 04:00 Temperature 101.2 F H 101.1 F H Pulse Rate 100 98 100 Respiratory Rate 16 16 16 Blood Pressure 137/62 143/69 H Pulse Oximetry 100 99 100 Oxygen Delivery Mechanical Ventilation Fraction of Inspired Oxygen 21 01/19/24 04:00 01/19/24 04:00 01/19/24 08:04 Temperature Pulse Rate 100 102 H Respiratory Rate Blood Pressure Pulse Oximetry 99 Oxygen Delivery Mechanical Ventilation Fraction of Inspired Oxygen 21 21 01/19/24 08:00 01/19/24 08:00 01/19/24 10:00 Temperature 101 F H Pulse Rate 100 100 109 H Respiratory Rate 17 Blood Pressure 163/65 H Pulse Oximetry 98 Oxygen Delivery Fraction of Inspired Oxygen 01/19/24 10:00 01/19/24 08:00 01/19/24 08:00 Temperature 101 F H Pulse Rate 108 H 103 H Respiratory Rate 14 15 Blood Pressure 146/68 H Pulse Oximetry 99 99 Oxygen Delivery Mechanical Ventilation Fraction of Inspired Oxygen 21 21 01/19/24 11:32 01/19/24 10:35 01/19/24 12:00 Temperature 101.2 F H Pulse Rate 109 H 106 H Respiratory Rate Blood Pressure Pulse Oximetry 99 Oxygen Delivery Mechanical Ventilation Fraction of Inspired Oxygen 21 01/19/24 12:00 01/19/24 12:00 Temperature 100.8 F H Pulse Rate 99 Respiratory Rate 13 Blood Pressure 127/63 Pulse Oximetry 98 Oxygen Delivery Fraction of Inspired Oxygen 21 Intake/Output Intake/Output: Intake & Output 01/16/24 01/17/24 01/18/24 01/19/24 23:59 23:59 23:59 23:59 Intake Total 2098.8 2300.8 1325 747 Output Total 6713 304 7954 125 Balance 848.8 1375.8 -2900 622 Meds/Results Medications: Active Medications Generic Name Dose Route Start Last Admin Trade Name Freq PRN Reason Stop Dose Admin Acetaminophen 650 mg 01/10/24 08:02 01/19/24 11:32 Acetaminophen 325 Mg Tablet FEED TUBE 650 mg Q6H PRN Administration Mild Pain (1-3) or Fever Amlodipine Besylate 10 mg 01/11/24 14:05 01/17/24 08:44 Amlodipine Besylate 10 Mg Tablet FEED TUBE 10 mg DAILY CARMELA Administration Aspirin 325 mg 01/12/24 16:00 01/17/24 08:43 Aspirin 325 Mg Tablet FEED TUBE 325 mg DAILY@0800 CARMELA Administration Atorvastatin Calcium 40 mg 01/13/24 09:00 01/19/24 08:37 Atorvastatin 40 Mg Tablet FEED TUBE 40 mg DAILY CARMELA Administration Dextrose 12.5 gm 01/07/24 13:18 Dextrose 50% 25 Gm/50 Ml Syringe IV PUSH PRN PRN Hypoglycemia Protocol Epoetin Dane-epbx 10,000 units 01/12/24 09:20 01/19/24 08:38 Epoetin Dane-Epbx 10,000 Units/Ml Vial SUB-Q 10,000 units MOWEFR@09 CARMELA Administration Glucagon 1 mg 01/07/24 13:18 Glucagon For Inj 1 Mg Vial IM PRN PRN Hypoglycemia Protocol Glucose 15 gm 01/07/24 13:18 Glucose Oral Gel 15 Gm Of Glucse In 37.5 Gm Tube PO PRN PRN Hypoglycemia Protocol Hydralazine HCl 10 mg 01/18/24 02:20 01/18/24 05:40 Hydralazine 10 Mg Tablet PO Not Given Q6HR CARMELA Dextrose 1,000 mls @ 100 mls/hr 01/07/24 13:18 Dextrose 5% 1,000 Ml IVPB PRN PRN Hypoglycemia Protocol Albumin Human 50 mls @ 999 mls/hr 01/07/24 17:11 01/12/24 10:30 Albutein IVPB 02/06/24 17:10 Infused Q10M PRN Infusion HYPOTENSION Levetiracetam 500 mg in 100 mls @ 400 mls/hr 01/07/24 21:00 01/18/24 20:11 Keppra Iv IVPB 400 mls/hr Q24H CARMELA Administration Insulin Aspart 4 - 8 units 01/10/24 07:55 01/19/24 12:09 Insulin Aspart (*Bkc) 100 Units/Ml SUB-Q 8 units Q4H CARMELA Administration Protocol Insulin Glargine 60 units 01/17/24 09:00 01/19/24 08:38 Insulin Glargine (*Bkc) 100 Units/Ml SUB-Q 60 units Q12H CARMELA Administration Labetalol HCl 10 mg 01/18/24 08:37 Labetalol Hcl Inj 100 Mg/20 Ml Vial IV PUSH Q4H PRN Hypertension Metoprolol Tartrate 100 mg 01/16/24 09:00 01/17/24 08:43 Metoprolol Tartrate 50 Mg Tab FEED TUBE 100 mg Q12HR CARMELA Administration Multi-Ingred Cream/Lotion/Oil/Oint 1 applic 01/07/24 21:00 01/19/24 08:39 Mineral Oil/White Petrolatum Ointment EACH EYE 1 applic Q12HR CARMELA Administration Pantoprazole Sodium 40 mg 01/07/24 21:00 01/19/24 08:39 Pantoprazole Sodium Iv 40 Mg Vial IV PUSH 40 mg Q12HR CARMELA Administration Radiology Results: ITS Impressions Abdomen/Pelvis CT 01/07/24 16:52 IMPRESSION: No acute abdominopelvic process. Specifically, there is no CT evidence of bowel obstruction. No definite evidence of renal injury, noting that low-grade renal injury as can be difficult to detect without contrast. Renal Ultrasound 01/08/24 10:47 IMPRESSION: 1. Normal kidney sizes. No hydronephrosis. Chest/Abdomen/Pelvis CT 01/12/24 15:08 IMPRESSION: Interval enlargement of the liver, when compared with previous examination. Flattening of the inferior vena cava suggesting severe hypovolemia. Interval development of basilar atelectasis and trace bilateral pleural effusions. No additional findings which represents a change from prior examination performed 01/07/2024. Supportive devices are in good position. Redemonstration of multiple stones within the gallbladder which is not diste nded. Head CT 01/12/24 15:31 IMPRESSION: 1. 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 2. Large distribution of chronic encephalomalacia in the expected distribution of left middle cerebral artery. Abdomen Ultrasound 01/13/24 09:31 IMPRESSION: 1. Cholelithiasis. 2. Normal liver Doppler. Arterial/Peripheral Duplex 01/13/24 09:31 IMPRESSION: 1. Cholelithiasis. 2. Normal liver Doppler. Venous Doppler Study 01/15/24 17:14 IMPRESSION: 1. Deep vein thrombosis involving left common femoral vein. ADDENDUM: 01/15/24 [id number] I called this result to Apurva Mclean. Abdomen X-Ray 01/16/24 06:03 Impression: NG tube in satisfactory position. Chest X-Ray 01/19/24 07:20 Impression: Stable support tubes. Stable probable atelectasis or scarring left lung base versus possibly pneumonia. Labs Labs: Laboratory Results - last 24 hr 01/18/24 01/18/24 01/18/24 16:29 20:10 23:33 WBC RBC Hgb Hct MCV MCH MCHC RDW Plt Count MPV Immature Gran % (Auto) Neut % (Auto) Lymph % (Auto) [place] % (Auto) Eos % (Auto) Baso % (Auto) Lymph # (Auto) [place] # (Auto) Eos # (Auto) Baso # (Auto) Abs Immat Gran (auto) Absolute Neuts (auto) Absolute Nucleated RBC Nucleated RBC % Puncture Site ABG pH ABG pCO2 ABG pO2 ABG PO2/FiO2 Ratio ABG HCO3 ABG O2 Saturation ABG O2 Content ABG Base Excess A-a Gradient Oxyhemoglobin Total Hemoglobin O2 Delivery Device O2 Liters/Min Minute Volume Vent Rate Vent Mode FiO2 Tidal Volume PEEP Peak Inspir Pressure Pressure Support Sodium Potassium Chloride Carbon Dioxide Anion Gap BUN Creatinine Estim Creat Clear Calc Estimated GFR Glucose POC Capillary Glucose 241 H 314 H 273 H Calcium Phosphorus Magnesium Total Bilirubin AST ALT Alkaline Phosphatase Total Protein Albumin 01/19/24 01/19/24 01/19/24 05:10 05:17 05:25 WBC 13.5 H RBC 2.86 L Hgb 8.4 L Hct 27.3 L MCV 95.5 MCH 29.4 MCHC 30.8 L RDW 17.1 H Plt Count 368 MPV 11.7 H Immature Gran % (Auto) 2.9 H Neut % (Auto) 78.3 H Lymph % (Auto) 10.9 L [place] % (Auto) 5.5 Eos % (Auto) 1.8 Baso % (Auto) 0.6 Lymph # (Auto) 1.48 [place] # (Auto) 0.7 H Eos # (Auto) 0.3 Baso # (Auto) 0.1 Abs Immat Gran (auto) 0.39 H Absolute Neuts (auto) 10.6 H Absolute Nucleated RBC 0.240 H Nucleated RBC % 1.8 H Puncture Site Left brachial ABG pH 7.498 H ABG pCO2 33.1 L ABG pO2 77.7 L ABG PO2/FiO2 Ratio 3.70 ABG HCO3 25.1 ABG O2 Saturation 96.5 ABG O2 Content 14.9 L ABG Base Excess 2.2 A-a Gradient 32.4 Oxyhemoglobin 95.6 Total Hemoglobin 11.0 L O2 Delivery Device Ventilator O2 Liters/Min Not Reportable Minute Volume Not Reportable Vent Rate 14 Vent Mode Cmv FiO2 21 Tidal Volume 400 PEEP 5 Peak Inspir Pressure Not Reportable Pressure Support Not Reportable Sodium 138 Potassium 3.9 Chloride 104 Carbon Dioxide 25 Anion Gap 9 BUN 57 H D Creatinine 3.10 H Estim Creat Clear Calc 17 Estimated GFR 15 L Glucose 360 H POC Capillary Glucose 335 H Calcium 8.8 Phosphorus 3.4 Magnesium 2.1 Total Bilirubin 0.5 AST 35 ALT 23 Alkaline Phosphatase 110 Total Protein 7.0 Albumin 3.3 L 01/19/24 01/19/24 08:33 12:07 WBC RBC Hgb Hct MCV MCH MCHC RDW Plt Count MPV Immature Gran % (Auto) Neut % (Auto) Lymph % (Auto) [place] % (Auto) Eos % (Auto) Baso % (Auto) Lymph # (Auto) [place] # (Auto) Eos # (Auto) Baso # (Auto) Abs Immat Gran (auto) Absolute Neuts (auto) Absolute Nucleated RBC Nucleated RBC % Puncture Site ABG pH ABG pCO2 ABG pO2 ABG PO2/FiO2 Ratio ABG HCO3 ABG O2 Saturation ABG O2 Content ABG Base Excess A-a Gradient Oxyhemoglobin Total Hemoglobin O2 Delivery Device O2 Liters/Min Minute Volume Vent Rate Vent Mode FiO2 Tidal Volume PEEP Peak Inspir Pressure Pressure Support Sodium Potassium Chloride Carbon Dioxide Anion Gap BUN Creatinine Estim Creat Clear Calc Estimated GFR Glucose POC Capillary Glucose 334 H 356 H Calcium Phosphorus Magnesium Total Bilirubin AST ALT Alkaline Phosphatase Total Protein Albumin Quality VTE Prophylaxis VTE prophylaxis: mechanical ordered and pharmacologic ordered
--- NOTE | 2024-01-19 15:34 | P.PNIM_ITS ---
Progress Note: A&P Assessment and Plan (1) Stroke: Code(s): I63.9 - Cerebral infarction, unspecified Status: Acute (2) Encephalopathy: Code(s): G93.40 - Encephalopathy, unspecified Status: Acute (3) Acute respiratory failure: Code(s): J96.00 - Acute respiratory failure, unspecified whether with hypoxia or hypercapnia Status: Acute (4) Acute kidney failure: Code(s): N17.9 - Acute kidney failure, unspecified Status: Acute (5) Metabolic acidosis: Code(s): E87.20 - Acidosis, unspecified Status: Acute (6) Septic shock: Code(s): A41.9 - Sepsis, unspecified organism; R65.21 - Severe sepsis with septic shock Status: Acute (7) Diastolic dysfunction: Code(s): I51.89 - Other ill-defined heart diseases Status: Acute (8) Insulin dependent diabetes mellitus: Status: Chronic (9) Right hemiparesis: Code(s): G81.91 - Hemiplegia, unspecified affecting right dominant side Status: Acute (10) Seizures: Code(s): R56.9 - Unspecified convulsions Status: Acute (11) Hypertension: Code(s): I10 - Essential (primary) hypertension Status: Acute (12) Anemia: Code(s): D64.9 - Anemia, unspecified Status: Acute Plan 63-year-old female with history of stroke, insulin-dependent diabetes, hypertension, hyperlipidemia, chronic kidney disease, anemia chronic disease, depression, and anxiety who presented to the emergency department accompanied by her son for evaluation of confusion. Was intubated. CT scan on presentation showed only old stroke and encephalomalacia Since then patient has not woken up despite holding sedation for multiple days and dialysis.01/[address] was done which showed. 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 These are likely secondary to hypotension Echo did not show any thrombus or ASD 1. Acute encephalopathy: Continue with aspirin, statin Neurology was following EEG was done Patient has been off sedation, still not responsive Ammonia levels unremarkable 2.Acute kidney injury: CT of the abdomen and pelvis did not show any hydronephrosis or urinary obstruction patient was started on hemodialysis Acidosis has resolved 3. Septic shock: Resolved Patient hypotensive on presentation Patient was given IV fluid bolus followed by maintenance IV fluids lactic acid has improved -Levophed weaned off -off IV fluids -source appears to be UTI. Urine and blood cultures are negative till now, STATUS POST CEFTRIAXONE -status post stress dose steroids Remains febrile, patient has been carl cultured this morning, WBC trending up -chest x-ray is not show any new infiltrates -holding antibiotics for now, if patient continues to spike fevers and WBC count increase tomorrow will add antibiotic 4. Seizure: Patient has a history of seizures, on p.o. Keppra 500 mg p.o. q.12 hours Continue Keppra IV 500 mg IV q.24 (discuss with pharmacist) EEG negative for any seizure-like activity 5.Essential (primary) hypertension Blood pressures have been labile, will hold metoprolol, hydralazine and amlodipine for now -patient has p.r.n. labetalol 6. DVT prophylaxis: Heparin on hold due to anemia 7. Code status: DNR likely plan for goals of care discussion tomorrow 8. Disposition: Continues to be in ICU, extremely poor prognosis Time Spent With Patient Time with patient: 15 - 25 minutes Subjective Date/time seen: 01/19/24 15:34 Interval history: Patient remains unresponsive, intubated Review of Systems Review of Systems: ROS unobtainable: Yes unobtainable due to endotracheal tube and unobtainable due to medical condition Exam Narrative: General: Intubated HEENT:? sclera is clear, ETT in place, facial puffiness noted Neck:? Supple, right IJ dialysis catheter in place Respiratory:? Coarse breath sounds bilaterally, decreased at bases no wheezing, adequate air entry Cardiac:? S1-S2 normal, regular rate and rhythm, Abdomen:? Soft, nontender, nondistended, hypoactive bowel sounds, old midline surgical scar noted Extremities:? Dry skin, decreased pedal pulses, pitting edema bilateral lower extremities Neuro:? Patient is intubated, off sedation, patient withdraws to pain stimulus in bilateral lower extremities, decerebrate posturing of the upper extremities on pain stimuli. Skin:? Dry and flaky skin on lower extremities, skin is warm Psych:? Unable to assess at this time Objective Data Vital Signs Vital Signs: Vital Signs - 24 hr 01/18/24 15:45 01/18/24 16:00 01/18/24 15:40 Temperature 100.0 F H Pulse Rate 110 H 107 H 109 H Respiratory Rate 18 Blood Pressure 170/88 H 147/67 H 170/88 H Pulse Oximetry 100 Oxygen Delivery Fraction of Inspired Oxygen 01/18/24 16:00 01/18/24 16:00 01/18/24 16:00 Temperature 100.2 F H Pulse Rate 109 H 101 H 99 Respiratory Rate 17 17 Blood Pressure 143/65 H Pulse Oximetry 100 100 Oxygen Delivery Mechanical Ventilation Fraction of Inspired Oxygen 21 01/18/24 16:03 01/18/24 16:05 01/18/24 16:15 Temperature 100.2 F H Pulse Rate 103 H 107 H 99 Respiratory Rate 17 Blood Pressure 117/66 143/65 H Pulse Oximetry 100 99 Oxygen Delivery Mechanical Ventilation Fraction of Inspired Oxygen 21 01/18/24 18:00 01/18/24 18:00 01/18/24 18:39 Temperature 100.8 F H 101.1 F H Pulse Rate 102 H 99 Respiratory Rate 16 Blood Pressure 106/73 Pulse Oximetry 100 Oxygen Delivery Fraction of Inspired Oxygen 01/18/24 20:00 01/18/24 20:00 01/18/24 19:39 Temperature 101.0 F H 101 F H Pulse Rate 92 Respiratory Rate 15 Blood Pressure 102/55 L Pulse Oximetry 99 Oxygen Delivery Fraction of Inspired Oxygen 21 01/18/24 21:50 01/18/24 20:00 01/18/24 22:00 Temperature 100.7 F H Pulse Rate 105 H 105 H 102 H Respiratory Rate 15 20 Blood Pressure 145/66 H Pulse Oximetry 99 99 100 Oxygen Delivery Mechanical Ventilation Mechanical Ventilation Fraction of Inspired Oxygen 21 21 01/18/24 20:00 01/18/24 22:00 01/18/24 23:30 Temperature Pulse Rate 95 102 H 102 H Respiratory Rate Blood Pressure Pulse Oximetry 98 Oxygen Delivery Mechanical Ventilation Fraction of Inspired Oxygen 21 01/19/24 00:20 01/19/24 00:00 01/19/24 00:00 Temperature 101.2 F H Pulse Rate 102 H 96 Respiratory Rate 20 16 Blood Pressure 111/58 L Pulse Oximetry 98 99 Oxygen Delivery Mechanical Ventilation Fraction of Inspired Oxygen 21 21 01/19/24 00:00 01/19/24 05:07 01/19/24 02:00 Temperature Pulse Rate 98 98 100 Respiratory Rate Blood Pressure Pulse Oximetry 99 Oxygen Delivery Mechanical Ventilation Fraction of Inspired Oxygen 21 01/19/24 02:00 01/19/24 04:00 01/19/24 04:00 Temperature 101.2 F H 101.1 F H Pulse Rate 100 98 100 Respiratory Rate 16 16 16 Blood Pressure 137/62 143/69 H Pulse Oximetry 100 99 100 Oxygen Delivery Mechanical Ventilation Fraction of Inspired Oxygen 21 01/19/24 04:00 01/19/24 04:00 01/19/24 08:04 Temperature Pulse Rate 100 102 H Respiratory Rate Blood Pressure Pulse Oximetry 99 Oxygen Delivery Mechanical Ventilation Fraction of Inspired Oxygen 21 21 01/19/24 08:00 01/19/24 08:00 01/19/24 10:00 Temperature 101 F H Pulse Rate 100 100 109 H Respiratory Rate 17 Blood Pressure 163/65 H Pulse Oximetry 98 Oxygen Delivery Fraction of Inspired Oxygen 01/19/24 10:00 01/19/24 08:00 01/19/24 08:00 Temperature 101 F H Pulse Rate 108 H 103 H Respiratory Rate 14 15 Blood Pressure 146/68 H Pulse Oximetry 99 99 Oxygen Delivery Mechanical Ventilation Fraction of Inspired Oxygen 21 21 01/19/24 11:32 01/19/24 10:35 01/19/24 12:00 Temperature 101.2 F H Pulse Rate 109 H 106 H Respiratory Rate Blood Pressure Pulse Oximetry 99 Oxygen Delivery Mechanical Ventilation Fraction of Inspired Oxygen 21 01/19/24 12:00 01/19/24 12:00 01/19/24 12:00 Temperature 100.8 F H Pulse Rate 99 106 H Respiratory Rate 13 18 Blood Pressure 127/63 Pulse Oximetry 98 100 Oxygen Delivery Mechanical Ventilation Fraction of Inspired Oxygen 21 21 01/19/24 12:32 01/19/24 13:51 01/19/24 14:00 Temperature 100.8 F H 100.3 F H Pulse Rate 97 95 Respiratory Rate 11 L Blood Pressure 122/66 Pulse Oximetry 100 100 Oxygen Delivery Mechanical Ventilation Fraction of Inspired Oxygen 21 01/19/24 14:00 Temperature Pulse Rate 98 Respiratory Rate Blood Pressure Pulse Oximetry Oxygen Delivery Fraction of Inspired Oxygen Intake/Output Intake/Output: Intake & Output 01/16/24 01/17/24 01/18/24 01/19/24 23:59 23:59 23:59 23:59 Intake Total 2098.8 2300.8 1325 747 Output Total 9034 184 8391 125 Balance 848.8 1375.8 -2900 622 Meds/Results Medications: Active Medications Generic Name Dose Route Start Last Admin Trade Name Freq PRN Reason Stop Dose Admin Acetaminophen 650 mg 01/10/24 08:02 01/19/24 11:32 Acetaminophen 325 Mg Tablet FEED TUBE 650 mg Q6H PRN Administration Mild Pain (1-3) or Fever Amlodipine Besylate 10 mg 01/11/24 14:05 01/17/24 08:44 Amlodipine Besylate 10 Mg Tablet FEED TUBE 10 mg DAILY CARMELA Administration Aspirin 325 mg 01/12/24 16:00 01/17/24 08:43 Aspirin 325 Mg Tablet FEED TUBE 325 mg DAILY@0800 CARMELA Administration Atorvastatin Calcium 40 mg 01/13/24 09:00 01/19/24 08:37 Atorvastatin 40 Mg Tablet FEED TUBE 40 mg DAILY CARMELA Administration Dextrose 12.5 gm 01/07/24 13:18 Dextrose 50% 25 Gm/50 Ml Syringe IV PUSH PRN PRN Hypoglycemia Protocol Epoetin Dane-epbx 10,000 units 01/12/24 09:20 01/19/24 08:38 Epoetin Dane-Epbx 10,000 Units/Ml Vial SUB-Q 10,000 units MOWEFR@09 CARMELA Administration Glucagon 1 mg 01/07/24 13:18 Glucagon For Inj 1 Mg Vial IM PRN PRN Hypoglycemia Protocol Glucose 15 gm 01/07/24 13:18 Glucose Oral Gel 15 Gm Of Glucse In 37.5 Gm Tube PO PRN PRN Hypoglycemia Protocol Hydralazine HCl 10 mg 01/18/24 02:20 01/18/24 05:40 Hydralazine 10 Mg Tablet PO Not Given Q6HR CARMELA Dextrose 1,000 mls @ 100 mls/hr 01/07/24 13:18 Dextrose 5% 1,000 Ml IVPB PRN PRN Hypoglycemia Protocol Albumin Human 50 mls @ 999 mls/hr 01/07/24 17:11 01/12/24 10:30 Albutein IVPB 02/06/24 17:10 Infused Q10M PRN Infusion HYPOTENSION Levetiracetam 500 mg in 100 mls @ 400 mls/hr 01/07/24 21:00 01/18/24 20:11 Keppra Iv IVPB 400 mls/hr Q24H CARMELA Administration Insulin Aspart 4 - 8 units 01/10/24 07:55 01/19/24 12:09 Insulin Aspart (*Bkc) 100 Units/Ml SUB-Q 8 units Q4H CARMELA Administration Protocol Insulin Glargine 60 units 01/17/24 09:00 01/19/24 08:38 Insulin Glargine (*Bkc) 100 Units/Ml SUB-Q 60 units Q12H CARMELA Administration Labetalol HCl 10 mg 01/18/24 08:37 Labetalol Hcl Inj 100 Mg/20 Ml Vial IV PUSH Q4H PRN Hypertension Metoprolol Tartrate 100 mg 01/16/24 09:00 01/17/24 08:43 Metoprolol Tartrate 50 Mg Tab FEED TUBE 100 mg Q12HR CARMELA Administration Multi-Ingred Cream/Lotion/Oil/Oint 1 applic 01/07/24 21:00 01/19/24 08:39 Mineral Oil/White Petrolatum Ointment EACH EYE 1 applic Q12HR CARMELA Administration Pantoprazole Sodium 40 mg 01/07/24 21:00 01/19/24 08:39 Pantoprazole Sodium Iv 40 Mg Vial IV PUSH 40 mg Q12HR CARMELA Administration Radiology Results: ITS Impressions Abdomen/Pelvis CT 01/07/24 16:52 IMPRESSION: No acute abdominopelvic process. Specifically, there is no CT evidence of bowel obstruction. No definite evidence of renal injury, noting that low-grade renal injury as can be difficult to detect without contrast. Renal Ultrasound 01/08/24 10:47 IMPRESSION: 1. Normal kidney sizes. No hydronephrosis. Chest/Abdomen/Pelvis CT 01/12/24 15:08 IMPRESSION: Interval enlargement of the liver, when compared with previous examination. Flattening of the inferior vena cava suggesting severe hypovolemia. Interval development of basilar atelectasis and trace bilateral pleural effusio ns. No additional findings which represents a change from prior examination performed 01/07/2024. Supportive devices are in good position. Redemonstration of multiple stones within the gallbladder which is not distended. Head CT 01/12/24 15:31 IMPRESSION: 1. 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 2. Large distribution of chronic encephalomalacia in the expected distribution of left middle cerebral artery. Abdomen Ultrasound 01/13/24 09:31 IMPRESSION: 1. Cholelithiasis. 2. Normal liver Doppler. Arterial/Peripheral Duplex 01/13/24 09:31 IMPRESSION: 1. Cholelithiasis. 2. Normal liver Doppler. Venous Doppler Study 01/15/24 17:14 IMPRESSION: 1. Deep vein thrombosis involving left common femoral vein. ADDENDUM: 01/15/24 [id number] I called this result to Apurva Mclean. Abdomen X-Ray 01/16/24 06:03 Impression: NG tube in satisfactory position. Chest X-Ray 01/19/24 07:20 Impression: Stable support tubes. Stable probable atelectasis or scarring left lung base versus possibly pneumonia. Labs Labs: Laboratory Results - last 24 hr 01/18/24 01/18/24 01/18/24 16:29 20:10 23:33 WBC RBC Hgb Hct MCV MCH MCHC RDW Plt Count MPV Immature Gran % (Auto) Neut % (Auto) Lymph % (Auto) [place] % (Auto) Eos % (Auto) Baso % (Auto) Lymph # (Auto) [place] # (Auto) Eos # (Auto) Baso # (Auto) Abs Immat Gran (auto) Absolute Neuts (auto) Absolute Nucleated RBC Nucleated RBC % Puncture Site ABG pH ABG pCO2 ABG pO2 ABG PO2/FiO2 Ratio ABG HCO3 ABG O2 Saturation ABG O2 Content ABG Base Excess A-a Gradient Oxyhemoglobin Total Hemoglobin O2 Delivery Device O2 Liters/Min Minute Volume Vent Rate Vent Mode FiO2 Tidal Volume PEEP Peak Inspir Pressure Pressure Support Sodium Potassium Chloride Carbon Dioxide Anion Gap BUN Creatinine Estim Creat Clear Calc Estimated GFR Glucose POC Capillary Glucose 241 H 314 H 273 H Calcium Phosphorus Magnesium Total Bilirubin AST ALT Alkaline Phosphatase Total Protein Albumin 01/19/24 01/19/24 01/19/24 05:10 05:17 05:25 WBC 13.5 H RBC 2.86 L Hgb 8.4 L Hct 27.3 L MCV 95.5 MCH 29.4 MCHC 30.8 L RDW 17.1 H Plt Count 368 MPV 11.7 H Immature Gran % (Auto) 2.9 H Neut % (Auto) 78.3 H Lymph % (Auto) 10.9 L [place] % (Auto) 5.5 Eos % (Auto) 1.8 Baso % (Auto) 0.6 Lymph # (Auto) 1.48 [place] # (Auto) 0.7 H Eos # (Auto) 0.3 Baso # (Auto) 0.1 Abs Immat Gran (auto) 0.39 H Absolute Neuts (auto) 10.6 H Absolute Nucleated RBC 0.240 H Nucleated RBC % 1.8 H Puncture Site Left brachial ABG pH 7.498 H ABG pCO2 33.1 L ABG pO2 77.7 L ABG PO2/FiO2 Ratio 3.70 ABG HCO3 25.1 ABG O2 Saturation 96.5 ABG O2 Content 14.9 L ABG Base Excess 2.2 A-a Gradient 32.4 Oxyhemoglobin 95.6 Total Hemoglobin 11.0 L O2 Delivery Device Ventilator O2 Liters/Min Not Reportable Minute Volume Not Reportable Vent Rate 14 Vent Mode Cmv FiO2 21 Tidal Volume 400 PEEP 5 Peak Inspir Pressure Not Reportable Pressure Support Not Reportable Sodium 138 Potassium 3.9 Chloride 104 Carbon Dioxide 25 Anion Gap 9 BUN 57 H D Creatinine 3.10 H Estim Creat Clear Calc 17 Estimated GFR 15 L Glucose 360 H POC Capillary Glucose 335 H Calcium 8.8 Phosphorus 3.4 Magnesium 2.1 Total Bilirubin 0.5 AST 35 ALT 23 Alkaline Phosphatase 110 Total Protein 7.0 Albumin 3.3 L 01/19/24 01/19/24 08:33 12:07 WBC RBC Hgb Hct MCV MCH MCHC RDW Plt Count MPV Immature Gran % (Auto) Neut % (Auto) Lymph % (Auto) [place] % (Auto) Eos % (Auto) Baso % (Auto) Lymph # (Auto) [place] # (Auto) Eos # (Auto) Baso # (Auto) Abs Immat Gran (auto) Absolute Neuts (auto) Absolute Nucleated RBC Nucleated RBC % Puncture Site ABG pH ABG pCO2 ABG pO2 ABG PO2/FiO2 Ratio ABG HCO3 ABG O2 Saturation ABG O2 Content ABG Base Excess A-a Gradient Oxyhemoglobin Total Hemoglobin O2 Delivery Device O2 Liters/Min Minute Volume Vent Rate Vent Mode FiO2 Tidal Volume PEEP Peak Inspir Pressure Pressure Support Sodium Potassium Chloride Carbon Dioxide Anion Gap BUN Creatinine Estim Creat Clear Calc Estimated GFR Glucose POC Capillary Glucose 334 H 356 H Calcium Phosphorus Magnesium Total Bilirubin AST ALT Alkaline Phosphatase Total Protein Albumin
[2024-01-19 16:44] LABS: Glucose Point of Care 331 mg/dl (65-105)
[2024-01-19] MEDS: levETIRAcetam 500MG/NACL 100ML 500 MG/100 ML BAG 400 MG IVPB (20:03)
[2024-01-19 20:28] LABS: Glucose Point of Care 346 mg/dl (65-105)
[2024-01-19 23:24] LABS: Glucose Point of Care 322 mg/dl (65-105)
[2024-01-20] VITALS (25 sets, daily range): BP systolic 108–158; BP diastolic 63–75; PULSE 96–112; RESP 13–21; TEMP 37.6–38.6; O2SAT 97–100
[2024-01-20] MEDS: INSULIN ASPART (*BKC) 100 UNITS/ML SUB-Q ×5 (04:22→20:21)
[2024-01-20 04:23] LABS: Glucose Point of Care 282 mg/dl (65-105)
[2024-01-20 04:33] LABS: Hematocrit 26.3 % (37.0-47.0); Hemoglobin 8.2 g/dL (12.0-15.0); Mean Corpuscular HGB Conc 31.2 g/dl (32-36); Mean Corpuscular Hemoglobin 29.7 pg (26-34); Mean Corpuscular Volume 95.3 fl (80-100); Mean Platelet Volume 11.7 fl (7.4-10.4); Platelet Count Result 377 k/mm3 (150-375); Red Blood Count 2.76 M/mm3 (4.2-5.4); Red Cell Distribution Width 17.2 % (11.5-14.5); White Blood Count 14.7 K/mm3 (4.5-10.0)
[2024-01-20 04:48] LABS: Alanine Aminotransferase 25 U/L (6-35); Albumin Level 3.2 g/dL (3.5-5.1); Alkaline Phosphatase 106 U/L (38-126); Anion Gap 9 mmol/L (4-12); Aspartate Amino Transferase 42 U/L (14-36); Bilirubin,Total 0.5 mg/dL (0.2-1.3); Blood Urea Nitrogen 75 mg/dL (7-17); Calcium 8.7 mg/dL (8.4-10.2); Carbon Dioxide 26 mmol/L (22-30); Chloride 104 mmol/L (98-107); Estimated CRCL calculation 14 ml/min; Estimated Glomerular Filt Rate 12; Glucose 296 mg/dL (65-110); Magnesium 2.3 mg/dL (1.6-2.3); Phosphorus 3.5 mg/dL (2.5-4.5); Potassium 3.6 mmol/L (3.4-5.0); Sodium 139 mmol/L (137-145)
[2024-01-20 04:53] LABS: Alveolar/Arterial O2 Gradient 33.2 mmHg; Carboxyhemoglobin 0.3 % THb (0-2.0); Fractional Inspired Oxygen 21 %; HCO3 ABG 24.1 mEq/l (22.0-26.0); Methemoglobin ABG 0.2 %THb (0-1.5); Oxygen Content ABG 13.1 %vol (16.0-22.0); Oxygen Saturation ABG 96.4 % (95.0-100.0); Oxyhemoglobin 95.7 % THb (90.0-100.0); PCO2 ABG 32.6 mmHg (35.0-45.0); PO2 ABG 77.5 mmHg (80.0-100.0); PO2 FiO2 Ratio Arterial Blood 3.69 %; Reduced Hemoglobin 3.8 %THb (0-5.0); Total Hemoglobin 9.7 g/dL (12.0-18.0); pH ABG 7.486 (7.350-7.450)
[2024-01-20 04:55] LABS: Arterial Blood Gas PEEP 5 cmH2O; Arterial Blood Gas Vent Mode ASV; Device VENTILATOR; Site Drawn LEFT BRACHIAL
[2024-01-20] MEDS: ACETAMINOPHEN 325 MG TABLET 650 MG FEED TUBE ×2 (08:30→16:00)
[2024-01-20] MEDS: PANTOPRAZOLE SODIUM IV 40 MG VIAL IV PUSH ×2 (08:31→20:21)
[2024-01-20] MEDS: ATORVASTATIN 40 MG TABLET FEED TUBE (08:31)
[2024-01-20] MEDS: MINERAL OIL/WHITE PETROLATUM OINTMENT 1 APPLIC EACH EYE ×2 (08:31→20:31)
[2024-01-20 08:37] LABS: Glucose Point of Care 290 mg/dl (65-105)
--- NOTE | 2024-01-20 08:43 | PM.IMPN ---
Progress Note: A&P Assessment and Plan (1) Stroke: Code(s): I63.9 - Cerebral infarction, unspecified Status: Acute (2) Encephalopathy: Code(s): G93.40 - Encephalopathy, unspecified Status: Acute (3) Acute respiratory failure: Code(s): J96.00 - Acute respiratory failure, unspecified whether with hypoxia or hypercapnia Status: Acute (4) Acute kidney failure: Code(s): N17.9 - Acute kidney failure, unspecified Status: Acute (5) Metabolic acidosis: Code(s): E87.20 - Acidosis, unspecified Status: Acute (6) Septic shock: Code(s): A41.9 - Sepsis, unspecified organism; R65.21 - Severe sepsis with septic shock Status: Acute (7) Diastolic dysfunction: Code(s): I51.89 - Other ill-defined heart diseases Status: Acute (8) Insulin dependent diabetes mellitus: Status: Chronic (9) Right hemiparesis: Code(s): G81.91 - Hemiplegia, unspecified affecting right dominant side Status: Acute (10) Seizures: Code(s): R56.9 - Unspecified convulsions Status: Acute (11) Hypertension: Code(s): I10 - Essential (primary) hypertension Status: Acute (12) Anemia: Code(s): D64.9 - Anemia, unspecified Status: Acute Plan 63-year-old female with history of stroke, insulin-dependent diabetes, hypertension, hyperlipidemia, chronic kidney disease, anemia chronic disease, depression, and anxiety who presented to the emergency department accompanied by her son for evaluation of confusion. Was intubated. CT scan on presentation showed only old stroke and encephalomalacia Since then patient has not woken up despite holding sedation for multiple days and dialysis.01/[address] was done which showed. 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 These are likely secondary to hypotension Echo did not show any thrombus or ASD Acute encephalopathy Continue with aspirin, statin Neurology was following EEG was done Patient has been off sedation, still not responsive Ammonia levels unremarkable .Acute kidney injury: CT of the abdomen and pelvis did not show any hydronephrosis or urinary obstruction patient was started on hemodialysis Acidosis has resolved . Septic shock: Resolved Patient hypotensive on presentation Patient was given IV fluid bolus followed by maintenance IV fluids lactic acid has improved -Levophed weaned off -off IV fluids -source appears to be UTI. Urine and blood cultures are negative till now, STATUS POST CEFTRIAXONE -status post stress dose steroids Remains febrile, patient has been carl cultured this morning, WBC trending up -chest x-ray is not show any new infiltrates -holding antibiotics for now, if patient continues to spike fevers and WBC count increase tomorrow will add antibiotic Seizure: Patient has a history of seizures, on p.o. Keppra 500 mg p.o. q.12 hours Continue Keppra IV 500 mg IV q.24 (discuss with pharmacist) EEG negative for any seizure-like activity Essential (primary) hypertension Blood pressures have been labile, will hold metoprolol, hydralazine and amlodipine for now -patient has p.r.n. labetalol DVT prophylaxis: Heparin on hold due to anemia Code status: DNR Disposition: Continues to be in ICU, extremely poor prognosis Subjective Date/time seen: 01/20/24 08:43 Interval history: I saw and examined the patient in ICU. Patient is off sedation, unresponsive to verbal command, patient had low-grade fever 100.7, tachycardia Exam Narrative: General: Intubated HEENT:? sclera is clear, ETT in place, facial puffiness noted Neck:? Supple, right IJ dialysis catheter in place Respiratory:? Coarse breath sounds bilaterally, decreased at bases no wheezing, adequate air entry Cardiac:? S1-S2 normal, regular rate and rhythm, Abdomen:? Soft, nontender, nondistended, hypoactive bowel sounds, old midline surgical scar noted Extremities:? Dry skin, decreased pedal pulses, pitting edema bilateral lower extremities Neuro:? Patient is intubated, off sedation, patient withdraws to pain stimulus in bilateral lower extremities, decerebrate posturing of the upper extremities on pain stimuli. Skin:? Dry and flaky skin on lower extremities, skin is warm Psych:? Unable to assess at this time Objective Data Vital Signs Vital Signs: Vital Signs - 24 hr 01/19/24 10:00 01/19/24 10:01/19/24 11:32 Temperature 101 F H 101.2 F H Pulse Rate 109 H 108 H Respiratory Rate 14 Blood Pressure 146/68 H Pulse Oximetry 99 Oxygen Delivery Fraction of Inspired Oxygen 01/19/24 10:35 01/19/24 12:00 01/19/24 12:00 Temperature Pulse Rate 109 H 106 H Respiratory Rate Blood Pressure Pulse Oximetry 99 Oxygen Delivery Mechanical Ventilation Fraction of Inspired Oxygen 21 21 01/19/24 12:00 01/19/24 12:00 01/19/24 12:32 Temperature 100.8 F H 100.8 F H Pulse Rate 99 106 H Respiratory Rate 13 18 Blood Pressure 127/63 Pulse Oximetry 98 100 Oxygen Delivery Mechanical Ventilation Fraction of Inspired Oxygen 21 01/19/24 13:51 01/19/24 14:00 01/19/24 14:00 Temperature 100.3 F H Pulse Rate 97 95 98 Respiratory Rate 11 L Blood Pressure 122/66 Pulse Oximetry 100 100 Oxygen Delivery Mechanical Ventilation Fraction of Inspired Oxygen 21 01/19/24 16:00 01/19/24 17:24 01/19/24 16:00 Temperature Pulse Rate 94 101 H Respiratory Rate Blood Pressure Pulse Oximetry 100 Oxygen Delivery Mechanical Ventilation Fraction of Inspired Oxygen 21 21 01/19/24 16:00 01/19/24 16:00 01/19/24 18:00 Temperature 100.2 F H Pulse Rate 94 101 H 100 Respiratory Rate 12 14 Blood Pressure 155/74 H Pulse Oximetry 100 100 Oxygen Delivery Mechanical Ventilation Fraction of Inspired Oxygen 21 01/19/24 18:00 01/19/24 20:00 01/19/24 20:00 Temperature 100.7 F H 100.7 F H Pulse Rate 98 103 H Respiratory Rate 13 13 Blood Pressure 126/65 135/65 Pulse Oximetry 100 100 Oxygen Delivery Fraction of Inspired Oxygen 21 01/19/24 20:15 01/19/24 20:42 01/19/24 20:00 Temperature Pulse Rate 103 H 101 H 101 H Respiratory Rate 13 Blood Pressure Pulse Oximetry 100 98 Oxygen Delivery Mechanical Ventilation Mechanical Ventilation Fraction of Inspired Oxygen 21 21 01/19/24 22:00 01/19/24 22:00 01/20/24 00:00 Temperature 101 F H Pulse Rate 111 H 111 H 111 H Respiratory Rate 18 18 Blood Pressure 127/62 Pulse Oximetry 100 100 Oxygen Delivery Mechanical Ventilation Fraction of Inspired Oxygen 21 01/20/24 00:08 01/20/24 00:00 01/20/24 00:00 Temperature 101.3 F H Pulse Rate 101 H 101 H Respiratory Rate 13 Blood Pressure 108/68 Pulse Oximetry 100 Oxygen Delivery Fraction of Inspired Oxygen 21 01/19/24 23:11 01/20/24 02:00 01/20/24 02:00 Temperature 101.1 F H Pulse Rate 112 H 106 H 106 H Respiratory Rate 14 Blood Pressure 139/69 Pulse Oximetry 99 100 Oxygen Delivery Mechanical Ventilation Fraction of Inspired Oxygen 21 01/20/24 02:27 01/20/24 04:00 01/20/24 04:30 Temperature Pulse Rate 105 H 103 H 103 H Respiratory Rate 14 Blood Pressure Pulse Oximetry 99 99 Oxygen Delivery Mechanical Ventilation Mechanical Ventilation Fraction of Inspired Oxygen 21 01/20/24 04:00 01/20/24 04:00 01/20/24 04:56 Temperature 101.1 F H Pulse Rate 103 H 104 H Respiratory Rate 13 Blood Pressure 139/66 Pulse Oximetry 99 97 Oxygen Delivery Mechanical Ventilation Fraction of Inspired Oxygen 01/20/24 05:56 01/20/24 06:00 01/20/24 08:23 Temperature 101.2 F H Pulse Rate 103 H 104 H 112 H Respiratory Rate 14 Blood Pressure 143/68 H Pulse Oximetry 100 99 Oxygen Delivery Mechanical Ventilation Fraction of Inspired Oxygen 21 Intake/Output Intake/Output: Intake & Output 01/17/24 01/18/24 01/19/24 01/20/24 23:59 23:59 23:59 23:59 Intake Total 2300.8 1425 1492 771 Output Total 925 4225 375 60 Balance 1375.8 -2800 1117 711 Meds/Results Medications: Active Medications Generic Name Dose Route Start Last Admin Trade Name Freq PRN Reason Stop Dose Admin Acetaminophen 650 mg 01/10/24 08:02 01/19/24 11:32 Acetaminophen 325 Mg Tablet FEED TUBE 650 mg Q6H PRN Administration Mild Pain (1-3) or Fever Amlodipine Besylate 10 mg 01/11/24 14:05 01/17/24 08:44 Amlodipine Besylate 10 Mg Tablet FEED TUBE 10 mg DAILY CARMELA Administration Aspirin 325 mg 01/12/24 16:00 01/17/24 08:43 Aspirin 325 Mg Tablet FEED TUBE 325 mg DAILY@0800 CARMELA Administration Atorvastatin Calcium 40 mg 01/13/24 09:00 01/19/24 08:37 Atorvastatin 40 Mg Tablet FEED TUBE 40 mg DAILY CARMELA Administration Dextrose 12.5 gm 01/07/24 13:18 Dextrose 50% 25 Gm/50 Ml Syringe IV PUSH PRN PRN Hypoglycemia Protocol Epoetin Dane-epbx 10,000 units 01/12/24 09:20 01/19/24 08:38 Epoetin Dane-Epbx 10,000 Units/Ml Vial SUB-Q 10,000 units MOWEFR@09 CARMELA Administration Glucagon 1 mg 01/07/24 13:18 Glucagon For Inj 1 Mg Vial IM PRN PRN Hypoglycemia Protocol Glucose 15 gm 01/07/24 13:18 Glucose Oral Gel 15 Gm Of Glucse In 37.5 Gm Tube PO PRN PRN Hypoglycemia Protocol Hydralazine HCl 10 mg 01/18/24 02:20 01/18/24 05:40 Hydralazine 10 Mg Tablet PO Not Given Q6HR CARMELA Dextrose 1,000 mls @ 100 mls/hr 01/07/24 13:18 Dextrose 5% 1,000 Ml IVPB PRN PRN Hypoglycemia Protocol Albumin Human 50 mls @ 999 mls/hr 01/07/24 17:11 01/12/24 10:30 Albutein IVPB 02/06/24 17:10 Infused Q10M PRN Infusion HYPOTENSION Levetiracetam 500 mg in 100 mls @ 400 mls/hr 01/07/24 21:00 01/19/24 20:18 Keppra Iv IVPB Infused Q24H CARMELA Infusion Insulin Aspart 4 - 8 units 01/10/24 07:55 01/20/24 04:22 Insulin Aspart (*Bkc) 100 Units/Ml SUB-Q 5 units Q4H CARMELA Administration Protocol Insulin Glargine 60 units 01/17/24 09:00 01/19/24 20:03 Insulin Glargine (*Bkc) 100 Units/Ml SUB-Q 60 units Q12H CARMELA Administration Labetalol HCl 10 mg 01/18/24 08:37 Labetalol Hcl Inj 100 Mg/20 Ml Vial IV PUSH Q4H PRN Hypertension Metoprolol Tartrate 100 mg 01/16/24 09:00 01/17/24 08:43 Metoprolol Tartrate 50 Mg Tab FEED TUBE 100 mg Q12HR CARMELA Administration Multi-Ingred Cream/Lotion/Oil/Oint 1 applic 01/07/24 21:00 01/19/24 20:04 Mineral Oil/White Petrolatum Ointment EACH EYE 1 applic Q12HR CARMELA Administration Pantoprazole Sodium 40 mg 01/07/24 21:00 01/19/24 20:03 Pantoprazole Sodium Iv 40 Mg Vial IV PUSH 40 mg Q12HR CARMELA Administration Radiology Results: ITS Impressions Abdomen/Pelvis CT 01/07/24 16:52 IMPRESSION: No acute abdominopelvic process. Specifically, there is no CT evidence of bowel obstruction. No definite evidence of renal injury, noting that low-grade renal injury as can be difficult to detect without contrast. Renal Ultrasound 01/08/24 10:47 IMPRESSION: 1. Normal kidney sizes. No hydronephrosis. Chest/Abdomen/Pelvis CT 01/12/24 15:08 IMPRESSION: Interval enlargement of the liver, when compared with previous examination. Flattening of the inferior vena cava suggesting severe hypovolemia. Interval development of basilar atelectasis and trace bilateral pleural effusions. No additional findings which represents a change from prior examination performed 01/07/2024. Supportive devices are in good position. Redemonstration of multiple stones within the gallbladder which is not distended. Head CT 01/12/24 15:31 IMPRESSION: 1. 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 2. Large distribution of chronic encephalomalacia in the expected distribution of left middle cerebral artery. Abdomen Ultrasound 01/13/24 09:31 IMPRESSION: 1. Cholelithiasis. 2. Normal liver Doppler. Arterial/Peripheral Duplex 01/13/24 09:31 IMPRESSION: 1. Cholelithiasis. 2. Normal liver Doppler. Venous Doppler Study 01/15/24 17:14 IMPRESSION: 1. Deep vein thrombosis involving left common femoral vein. ADDENDUM: 01/15/24 5009 I called this result to Apurva Mclean. Abdomen X-Ray 01/16/24 06:03 Impression: NG tube in satisfactory position. IVC Filter Placement X-Ray 01/20/24 06:18 IMPRESSION: Fluoroscopy used during IVC filter insertion. Chest X-Ray 01/20/24 06:19 Impression: 1: No acute cardiopulmonary disease. Labs Labs: Laboratory Results - last 24 hr 01/19/24 01/19/24 01/19/24 12:07 16:29 20:03 WBC RBC Hgb Hct MCV MCH MCHC RDW Plt Count MPV Puncture Site ABG pH ABG pCO2 ABG pO2 ABG PO2/FiO2 Ratio ABG HCO3 ABG O2 Saturation ABG O2 Content ABG Base Excess A-a Gradient Oxyhemoglobin Carboxyhemoglobin Methemoglobin Reduced Hemoglobin Total Hemoglobin O2 Delivery Device O2 Liters/Min Minute Volume Vent Rate Vent Mode FiO2 Tidal Volume PEEP Peak Inspir Pressure Pressure Support Sodium Potassium Chloride Carbon Dioxide Anion Gap BUN Creatinine Estim Creat Clear Calc Estimated GFR Glucose POC Capillary Glucose 356 H 331 H 346 H Calcium Phosphorus Magnesium Total Bilirubin AST ALT Alkaline Phosphatase Total Protein Albumin 01/19/24 01/20/24 01/20/24 23:21 04:18 04:27 WBC 14.7 H RBC 2.76 L Hgb 8.2 L Hct 26.3 L MCV 95.3 MCH 29.7 MCHC 31.2 L RDW 17.2 H Plt Count 377 H MPV 11.7 H Puncture Site ABG pH ABG pCO2 ABG pO2 ABG PO2/FiO2 Ratio ABG HCO3 ABG O2 Saturation ABG O2 Content ABG Base Excess A-a Gradient Oxyhemoglobin Carboxyhemoglobin Methemoglobin Reduced Hemoglobin Total Hemoglobin O2 Delivery Device O2 Liters/Min Minute Volume Vent Rate Vent Mode FiO2 Tidal Volume PEEP Peak Inspir Pressure Pressure Support Sodium 139 Potassium 3.6 Chloride 104 Carbon Dioxide 26 Anion Gap 9 BUN 75 H D Creatinine 3.70 H Estim Creat Clear Calc 14 Estimated GFR 12 L Glucose 296 H POC Capillary Glucose 322 H 282 H Calcium 8.7 Phosphorus 3.5 Magnesium 2.3 Total Bilirubin 0.5 AST 42 H ALT 25 Alkaline Phosphatase 106 Total Protein 7.0 Albumin 3.2 L 01/20/24 01/20/24 04:31 08:34 WBC RBC Hgb Hct MCV MCH MCHC RDW Plt Count MPV Puncture Site Left brachial ABG pH 7.486 H ABG pCO2 32.6 L ABG pO2 77.5 L ABG PO2/FiO2 Ratio 3.69 ABG HCO3 24.1 ABG O2 Saturation 96.4 ABG O2 Content 13.1 L ABG Base Excess 1.0 A-a Gradient 33.2 Oxyhemoglobin 95.7 Carboxyhemoglobin 0.3 Methemoglobin 0.2 Reduced Hemoglobin 3.8 Total Hemoglobin 9.7 L O2 Delivery Device Ventilator O2 Liters/Min Not Reportable Minute Volume Not Reportable Vent Rate Not Reportable Vent Mode Asv FiO2 21 Tidal Volume Not Reportable PEEP 5 Peak Inspir Pressure Not Reportable Pressure Support Not Reportable Sodium Potassium Chloride Carbon Dioxide Anion Gap BUN Creatinine Estim Creat Clear Calc Estimated GFR Glucose POC Capillary Glucose 290 H Calcium Phosphorus Magnesium Total Bilirubin AST ALT Alkaline Phosphatase Total Protein Albumin
[2024-01-20] MEDS: INSULIN GLARGINE (*BKC) 100 UNITS/ML 60 UNITS SUB-Q ×2 (08:44→20:22)
[2024-01-20 11:10] LABS: Glucose Point of Care 318 mg/dl (65-105)
--- NOTE | 2024-01-20 12:01 | P.PNNP_ITS ---
Progress Note: A&P Assessment and Plan (1) Acute kidney failure: Code(s): N17.9 - Acute kidney failure, unspecified Status: Acute Assessment and Plan: * baseline creatinine not known * reportedly has some underlying renal insufficiency/CKD per family * still awaiting outside records * evaluation to date noted: * CT of abd/pelvis and renal ultrasound negative for obstruction * urine eosinophils negative * CPK normal * urine electrolytes non-prerenal * UA suggestive of infection * proteinuria noted complicated by severe acidosis and hyperkalemia on admission * etiology likely multifactorial: * infection/sepsis * hemodynamic instability/shock * SRINIVAS-I + HCTZ use prior to admission * possible prerenal factors * metformin use prior to admission * continued BP medications prior to admission * no improvement in mental status with dialytic interventions * stable electrolytes but declining urine output noted * holding HD for now (2) Septic shock: Code(s): A41.9 - Sepsis, unspecified organism; R65.21 - Severe sepsis with septic shock Status: Resolved Assessment and Plan: * resolved * initially normotensive on presentation * however, worsening hypotension in the ER * s/p aggressive IVF resuscitation * presumed source = aspiration pneumonia + UTI * blood and urine cultures negative -- still with on/off fevers * sputum culture showed yeast * on antibiotics * off pressors * follow hemodynamics (3) Acute respiratory failure: Code(s): J96.00 - Acute respiratory failure, unspecified whether with hypoxia or hyp ercapnia Status: Acute Assessment and Plan: * due to AMS + emesis and concerns for aspiration and inability to protect airway * intubated and on mechanical ventilation * continue ventilator support - off sedation * weaning as tolerated but mentation is still an issue (4) Encephalopathy: Code(s): G93.40 - Encephalopathy, unspecified Status: Acute Assessment and Plan: * as noted by presentation of altered mental status, delirium, and confusion * CT of brain shows several strokes * TSH and ammonia levels noted * HD did not help the mental status * still unresponsive (5) Stroke: Code(s): I63.9 - Cerebral infarction, unspecified Status: Acute Assessment and Plan: * as noted by repeat CT of head on 01/11: * Extensive bilateral acute infarcts in the expected distributions of the bilateral middle cerebral arteries. * presumably secondary to hypotension * Echo did not show any thrombus or ASD * remains unresponsive at this time (6) Anemia: Code(s): D64.9 - Anemia, unspecified Status: Acute Assessment and Plan: * noted drop in H/H by labs on 01/16 * was on heparin gtt for left LE DVT (but off now) * PRBC transfusion per protocol * ALICE with dialysis * follow trend of H/H (7) Deep vein thrombosis of left lower extremity: Code(s): I82.402 - Acute embolism and thrombosis of unspecified deep veins of left lower extremity Status: Acute Assessment and Plan: * as noted by LE dopplers * s/p IVC filter placement on 01/18/24 (8) Insulin dependent diabetes mellitus: Status: Chronic Assessment and Plan: * follow accu-checks * glycemic control per hospitalists/baker [employer] Follow-up on results of family meeting today regarding plan of care/goals of therapy given the patient's lack of improvement in the last week if not longer. Will continue to follow. Subjective Date/time seen: 01/20/24 12:01 Interval history: Follow-up for acute kidney injury/acute renal failure. (on chronic kidney disease?) No apparent change noted since I last saw the patient -- remains intubated and on mechanical ventilation as well as unresponsive despite being of sedation for almost 10 days; continues to have fevers with a T-max of 101.3?; remaine hemodynamically stable but urine output remains quite low. Noted plan for family meeting today to determine plan of care/goals of therapy given her lack of improvement in the last week if not longer. Exam Narrative: General: somewhat ill appearing female intubated and on mechanical ventilation Heart: normal S1 and S2; no rub Lungs: coarse breath sounds bilaterally Abdomen: soft, nontender, nondistended, positive bowel sounds Extremities: no cyanosis or clubbing; no edema Skin: warm and intact Objective Data Vital Signs Vital Signs: Vital Signs Temp Pulse Resp BP Pulse Ox O2 Del Method FiO2 01/20/24 12:00 100.9 F H 99 21 H 108/63 100 21 01/20/24 10:56 103 H 99 Mechanical Ventilation 21 01/20/24 10:00 101.5 F H 106 H 14 111/67 99 01/20/24 10:00 106 H 01/20/24 08:00 101.1 F H 112 H 14 146/75 H 99 01/20/24 08:00 21 01/20/24 08:00 112 H 01/20/24 08:00 112 H 14 99 Mechanical Ventilation 21 01/20/24 08:30 101.2 F H 01/20/24 08:23 112 H 99 Mechanical Ventilation 01/20/24 06:00 101.2 F H 104 H 14 143/68 H 100 01/20/24 05:56 103 H 01/20/24 04:56 104 H 97 Mechanical Ventilation 01/20/24 04:00 101.1 F H 103 H 13 139/66 99 01/20/24 04:00 21 01/20/24 04:30 103 H 14 99 Mechanical Ventilation 01/20/24 04:00 103 H 01/20/24 02:27 105 H 99 Mechanical Ventilation 01/20/24 02:00 101.1 F H 106 H 14 139/69 100 01/20/24 02:00 106 H 01/19/24 23:11 112 H 99 Mechanical Ventilation 01/20/24 00:00 101 H 01/20/24 00:00 101.3 F H 101 H 13 108/68 100 01/20/24 00:08 21 01/20/24 00:00 111 H 18 100 Mechanical Ventilation 01/19/24 22:00 101 F H 111 H 18 127/62 100 01/19/24 22:00 111 H 01/19/24 20:00 101 H 01/19/24 20:42 101 H 98 Mechanical Ventilation 01/19/24 20:15 103 H 13 100 Mechanical Ventilation 01/19/24 20:00 21 01/19/24 20:00 100.7 F H 103 H 13 135/65 100 01/19/24 18:00 100.7 F H 98 13 126/65 100 01/19/24 18:00 100 01/19/24 16:00 101 H 14 100 Mechanical Ventilation 01/19/24 16:00 100.2 F H 94 12 155/74 H 100 01/19/24 16:00 21 01/19/24 17:24 101 H 100 Mechanical Ventilation 01/19/24 16:00 94 Intake/Output Intake/Output: Intake & Output 01/17/24 01/18/24 01/19/24 01/20/24 23:59 23:59 23:59 23:59 Intake Total 2300.8 1425 1492 771 Output Total 018 4225 375 60 Balance 6535.8 -9550 1114 711 Meds/Results Medications: Active Medications Generic Name Dose Route Start Last Admin Trade Name Freq PRN Reason Stop Dose Admin Acetaminophen 650 mg 01/10/24 08:02 01/20/24 08:30 Acetaminophen 325 Mg Tablet FEED TUBE 650 mg Q6H PRN Administration Mild Pain (1-3) or Fever Amlodipine Besylate 10 mg 01/11/24 14:05 01/17/24 08:44 Amlodipine Besylate 10 Mg Tablet FEED TUBE 10 mg DAILY CARMELA Administration Aspirin 325 mg 01/12/24 16:00 01/17/24 08:43 Aspirin 325 Mg Tablet FEED TUBE 325 mg DAILY@0800 CARMELA Administration Atorvastatin Calcium 40 mg 01/13/24 09:00 01/20/24 08:31 Atorvastatin 40 Mg Tablet FEED TUBE 40 mg DAILY CARMELA Administration Dextrose 12.5 gm 01/07/24 13:18 Dextrose 50% 25 Gm/50 Ml Syringe IV PUSH PRN PRN Hypoglycemia Protocol Epoetin Dane-epbx 10,000 units 01/12/24 09:20 01/19/24 08:38 Epoetin Dane-Epbx 10,000 Units/Ml Vial SUB-Q 10,000 units MOWEFR@09 CARMELA Administration Glucagon 1 mg 01/07/24 13:18 Glucagon For Inj 1 Mg Vial IM PRN PRN Hypoglycemia Protocol Glucose 15 gm 01/07/24 13:18 Glucose Oral Gel 15 Gm Of Glucse In 37.5 Gm Tube PO PRN PRN Hypoglycemia Protocol Hydralazine HCl 10 mg 01/18/24 02:20 01/18/24 05:40 Hydralazine 10 Mg Tablet PO Not Given Q6HR CARMELA Dextrose 1,000 mls @ 100 mls/hr 01/07/24 13:18 Dextrose 5% 1,000 Ml IVPB PRN PRN Hypoglycemia Protocol Albumin Human 50 mls @ 999 mls/hr 01/07/24 17:11 01/12/24 10:30 Albutein IVPB 02/06/24 17:10 Infused Q10M PRN Infusion HYPOTENSION Levetiracetam 500 mg in 100 mls @ 400 mls/hr 01/07/24 21:00 01/19/24 20:18 Keppra Iv IVPB Infused Q24H CARMELA Infusion Meropenem 500 mg in 100 mls @ 200 mls/hr 01/20/24 15:00 IVPB Q12H CARMELA Micafungin Sodium 100 mg/ 100 mls @ 100 mls/hr 01/20/24 16:00 Sodium Chloride IVPB Q24H [facility] Insulin Aspart 4 - 8 units 01/10/24 07:55 01/20/24 11:08 Insulin Aspart (*Bkc) 100 Units/Ml SUB-Q 6 units Q4H CARMELA Administration Protocol Insulin Glargine 60 units 01/17/24 09:00 01/20/24 08:44 Insulin Glargine (*Bkc) 100 Units/Ml SUB-Q 60 units Q12H CARMELA Administration Labetalol HCl 10 mg 01/18/24 08:37 Labetalol Hcl Inj 100 Mg/20 Ml Vial IV PUSH Q4H PRN Hypertension Metoprolol Tartrate 100 mg 01/16/24 09:00 01/17/24 08:43 Metoprolol Tartrate 50 Mg Tab FEED TUBE 100 mg Q12HR CARMELA Administration Multi-Ingred Cream/Lotion/Oil/Oint 1 applic 01/07/24 21:00 01/20/24 08:31 Mineral Oil/White Petrolatum Ointment EACH EYE 1 applic Q12HR CARMELA Administration Pantoprazole Sodium 40 mg 01/07/24 21:00 01/20/24 08:31 Pantoprazole Sodium Iv 40 Mg Vial IV PUSH 40 mg Q12HR CARMELA Administration Vancomycin HCl 1 each 01/20/24 14:59 Vancomycin For Hemodialysis IVPB PRN PRN Vancomycin Protocol Radiology Results: ITS Impressions Abdomen/Pelvis CT 01/07/24 16:52 IMPRESSION: No acute abdominopelvic process. Specifically, there is no CT evidence of bowel obstruction. No definite evidence of renal injury, noting that low-grade renal injury as can be difficult to detect without contrast. Renal Ultrasound 01/08/24 10:47 IMPRESSION: 1. Normal kidney sizes. No hydronephrosis. Chest/Abdomen/Pelvis CT 01/12/24 15:08 IMPRESSION: Interval enlargement of the liver, when compared with previous examination. Flattening of the inferior vena cava suggesting severe hypovolemia. Interval development of basilar atelectasis and trace bilateral pleural effusions. No additional findings which represents a change from prior examination performed 01/07/2024. Supportive devices are in good position. Redemonstration of multiple stones within the gallbladder which is not distended. Head CT 01/12/24 15:31 IMPRESSION: 1. 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 2. Large distribution of chronic encephalomalacia in the expected distribution of left middle cerebral artery. Abdomen Ultrasound 01/13/24 09:31 IMPRESSION: 1. Cholelithiasis. 2. Normal liver Doppler. Arterial/Peripheral Duplex 01/13/24 09:31 IMPRESSION: 1. Cholelithiasis. 2. Normal liver Doppler. Venous Doppler Study 01/15/24 17:14 IMPRESSION: 1. Deep vein thrombosis involving left common femoral vein. ADDENDUM: 01/15/24 [id number] I called this result to Apurva Mclean. Abdomen X-Ray 01/16/24 06:03 Impression: NG tube in satisfactory position. IVC Filter Placement X-Ray 01/20/24 06:18 IMPRESSION: Fluoroscopy used during IVC filter insertion. Chest X-Ray 01/20/24 06:19 Impression: 1: No acute cardiopulmonary disease. Labs Labs: Laboratory Tests 01/20/24 04:27 01/20/24 04:27 Calcium 8.7 Phosphorus 3.5 Magnesium 2.3 Total Bilirubin 0.5 AST 42 H ALT 25 Alkaline Phosphatase 106 Total Protein 7.0 Albumin 3.2 L Microbiology 01/19/24 08:11 Blood Blood Culture - Preliminary 01/19/24 08:41 Blood Blood Culture - Preliminary
--- NOTE | 2024-01-20 12:17 | WPDINTPN ---
Progress Note: A&P Assessment and Plan (1) Stroke: Code(s): I63.9 - Cerebral infarction, unspecified Status: Acute Assessment and Plan: Patient presented with altered mental status but at that time patient was respiratory failure acute renal failure acidosis and sepsis. CT scan on presentation showed only old stroke and encephalomalacia Since then patient has not woken up despite holding sedation for multiple days and dialysis. 01/[address] was done which showed. 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 These are likely secondary to hypotension Echo did not show any thrombus or ASD Continue aspirin and statin Neurology following EEG 01/12 - This is an abnormal EEG due to presence of moderate diffuse background slowing suggested generalized cephalopathy. No significant change in neurological status (2) Encephalopathy: Code(s): G93.40 - Encephalopathy, unspecified Status: Acute Assessment and Plan: Patient presented with encephalopathy, altered mental status, delirium, confusion -most likely related to uremia, infection, severe acidosis and baseline flow malacia from past stroke TSH and ammonia normal Patient has been off sedation since 01/09/2024. Still not responsive.. Will continue hold sedatives. EEG as above Patient was dialyzed 01/11 to help with drug removal. Minimal improved Encephalopathy likely secondary to strokes. See above. Neurology following -patient has been off sedation since 01/09/2024, has not woken up -01/16: Ammonia levels are normal 01/11: Repeat CT scan of the brain IMPRESSION: 1. 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 2. Large distribution of chronic encephalomalacia in the expected distribution of left middle cerebral artery. 01/06: CT brain on admission IMPRESSION: 1. No acute intracranial process. 2. 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 3. Additional more diffuse likely age-related mild to moderate diffuse volume loss and mild scattered white matter hypoattenuation consistent with chronic small vessel ischemic disease. (3) Acute respiratory failure: Code(s): J96.00 - Acute respiratory failure, unspecified whether with hypoxia or hypercapnia Status: Acute Assessment and Plan: Patient had an episode of emesis in the ER, given her altered mental status encephalopathy, risk of aspiration with impending respiratory failure patient was intubated on 01/06/2025 -chest x-ray had ABG reviewed -patient currently on ASV mode of ventilation, peep of 5, 21% FiO2 and tolerating -sedation is on hold. -weaning will depend on improvement in mental status. (4) Acute kidney failure: Code(s): N17.9 - Acute kidney failure, unspecified Status: Acute Assessment and Plan: On chronic kidney injury, unknown cause, CT of the abdomen and pelvis did not show any hydronephrosis or urinary obstruction -significant lactic acidosis and metabolic acidosis -patient has a history of diabetes, hypertension which is likely the cause of chronic kidney disease -patient on lisinopril hydrochlorothiazide and metformin at home -patient was given a total of 3 L IV fluid bolus, 1 L in the ER and 2 L in the ICU -sodium bicarb IV pushes x4 in the ICU -patient was started on sodium bicarb infusion after discussing with Nephrology, which her was discontinued once hemodialysis was started -patient was started on hemodialysis and was dialyzed x 3 days -patient continues to have decent urine output - 01/11 patient was dialyzed again 1 L fluid was removed -continue to monitor urine output, electrolytes and renal function -01/16: worsening creatinine, increased edema, decreased urine output. Discussed with Nephrology, patient will dialyzed -continues to have decreased urine output (5) Metabolic acidosis: Code(s): E87.20 - Acidosis, unspecified Status: Acute Assessment and Plan: RESOLVED Patient presented with significant metabolic acidosis and lactic acidosis. This could be combination of septic shock, acute kidney injury but also a possibility of metformin toxicity Patient received hemodialysis and IV bicarb. Acidosis has resolved. Further dialysis per Nephrology (6) Septic shock: Code(s): A41.9 - Sepsis, unspecified organism; R65.21 - Severe sepsis with septic shock Status: Acute Assessment and Plan: RESOLVED Patient hypotensive on presentation Patient was given IV fluid bolus followed by maintenance IV fluids -lactic acid has improved -Levophed weaned off -off IV fluids -source appears to be UTI. Urine and blood cultures are negative till now, STATUS POST CEFTRIAXONE -status post stress dose steroids - 01/10 continues to have fever although other markers of infection are improved as normal WBC. 01/10: Repeat blood cultures are negative x2 Clark catheter change 01/11 Minimal respiratory secretions, sputum cultures growing yeast which is likely a colonization Change Rocephin to cefepime and vancomycin 01/14: Patient continues to have low-grade fever but overall fever curve is down. White count is normal. CT scan of chest and pelvis does not show any area suggestive of infection. Clark catheter was changed. Procalcitonin level is also on the lower side. Continue cefepime but will discontinue vancomycin at this time. Cultures are negative till now. -lipase was within normal limits -01/15/2024: lower extremity venous Dopplers: Left common femoral vein DVT -01/14: patient was started on heparin infusion OFF all abx 01/18: Remains febrile, patient has been carl cultured this morning, WBC trending up -chest x-ray is not show any new infiltrates -holding antibiotics for now, if patient continues to spike fevers and WBC count increase tomorrow will add antibiotics 01/18: Preliminary blood cultures are negative x2 01/18: Urine cultures obtained 01/18: Sputum cultures are pending 01/19: Remains febrile, chest x-ray is clear, family discussion today further plan of care, if ongoing care is continued, will add antibiotics and antifungal (7) Diastolic dysfunction: Code(s): I51.89 - Other ill-defined heart diseases Status: Acute Assessment and Plan: Echo 01/11 Summary 1. Left ventricular systolic function is normal, estimated at 60-65%. 2. There is moderately increased left ventricular wall thickness. 3. Intact interatrial septum visualized by agitated saline imaging. 4. There is mild aortic valve calcification. 5. There is mild aortic valve stenosis with a peak velocity of 190 cm/s,mean gradient of 8 mmHg, and aortic valve area of 1.8 cm2. 6. There is mild tricuspid valve regurgitation. 7. Mild pulmonary hypertension, estimated pulmonary arterial systolicpressure is 46 mmHg. (8) Insulin dependent diabetes mellitus: Status: Chronic Assessment and Plan: Continue sliding scale insulin Accu-Cheks Lantus was increased and will dose b.i.d. (hold a.m. Lantus dose as patient is NPO for the procedure) (9) Right hemiparesis: Code(s): G81.91 - Hemiplegia, unspecified affecting right dominant side Status: Acute Assessment and Plan: History of left-sided cerebral hemisphere and CVA, residual mild aphasia and right-sided weakness (10) Seizures: Code(s): R56.9 - Unspecified convulsions Status: Acute Assessment and Plan: Patient has a history of seizures, on p.o. Keppra 500 mg p.o. q.12 hours Continue Keppra IV 500 mg IV q.24 (discuss with pharmacist) EEG negative for any seizure-like activity (11) Hypertension: Code(s): I10 - Essential (primary) hypertension Status: Acute Assessment and Plan: Blood pressures have been labile, will hold metoprolol, hydralazine and amlodipine for now -patient has p.r.n. labetalol (12) Anemia: Code(s): D64.9 - Anemia, unspecified Status: Acute Assessment and Plan: 01/16: Patient has been on heparin infusion for DVT in the right common femoral vein. Dropped hemoglobin this morning to 6.7 from 7.8. - heparin infusion Discontinued -stool for Hemoccult was Negative -01/17: IVC filter placement by surgery Plan DVT prophylaxis: Hold heparin infusion due to anemia Stress ulcer prophylaxis: Protonix IV q.12 hours Nutrition: Continue tube feeds Code Status: DNR Critical Care Time Spent: 32 minutes Family meeting today 01/17: Discuss with patient's son, Hakan, updated with patient's condition and plan of care. Family meeting on 01/20/2024 for further plan of care for the patient. Due to a high probability of clinically significant, life threatening deterioration, the patient required my highest level of preparedness to intervene emergently and I personally spent this critical care time directly and personally managing the patient. This critical care time included obtaining a history; examining the patient; pulse oximetry; ordering and review of studies; arranging urgent treatment with development of a management plan; evaluation of patient's response to treatment; frequent reassessment; and discussions with other providers. It was exclusive of separately billable procedures and treating other patients and teaching time. Please see Assessment and Plan section and the rest of the note for further information on patient assessment and treatment This dictation may have been done utilizing a voice recognition system. Attempts have been made to correct errors. However, there may be uncorrected grammatical, spelling, and recognitions errors present. Subjective Date/time seen: 01/20/24 12:17 Interval history: Reason for consult: Altered mental status, acute respiratory failure, severe metabolic acidosis, multiple strokes, DVT 01/20/2024: Patient seen and examined the ICU, remains intubated, on ASV mode of ventilation, peep of 5, 21% FiO2. Sedation has been off since 01/09/2024. Patient does not open eyes to name follows simple commands. She continues to have fevers with a T-max of 101.3?. Blood pressures have been stable, urine output has been low Review of Systems Review of Systems: ROS unobtainable: Yes unobtainable due to endotracheal tube, unobtainable due to medical condition and unobtainable due to mental status Exam Narrative: General: Intubated and sedated HEENT:? Pupils are equal and reactive to light, patient has positive corneal reflex, sclera is clear, ETT in place, facial puffiness noted Neck:? Supple, right IJ dialysis catheter in place Respiratory:? Coarse breath sounds bilaterally, decreased at bases no wheezing, adequate air entry Cardiac:? S1-S2 normal, regular rate and rhythm, Abdomen:? Soft, nontender, nondistended, hypoactive bowel sounds, old midline surgical scar noted Extremities:? Dry skin, decreased pedal pulses, pitting edema bilateral lower extremities Neuro:? Patient is intubated, off sedation, PERRL, patient withdraws to pain stimulus in bilateral lower extremities, decerebrate posturing of the upper extremities on pain stimuli. Skin:? Dry and flaky skin on lower extremities, skin is warm Psych:? Unable to assess at this time Objective Data Vital Signs Vital Signs: Vital Signs - 24 hr 01/19/24 12:32 01/19/24 13:51 01/19/24 14:00 Temperature 100.8 F H 100.3 F H Pulse Rate 97 95 Respiratory Rate 11 L Blood Pressure 122/66 Pulse Oximetry 100 100 Oxygen Delivery Mechanical Ventilation Fraction of Inspired Oxygen 01/19/24 14:00 01/19/24 16:00 01/19/24 17:24 Temperature Pulse Rate 98 94 101 H Respiratory Rate Blood Pressure Pulse Oximetry 100 Oxygen Delivery Mechanical Ventilation Fraction of Inspired Oxygen 01/19/24 16:00 01/19/24 16:00 01/19/24 16:00 Temperature 100.2 F H Pulse Rate 94 101 H Respiratory Rate 12 14 Blood Pressure 155/74 H Pulse Oximetry 100 100 Oxygen Delivery Mechanical Ventilation Fraction of Inspired Oxygen 21 21 01/19/24 18:00 01/19/24 18:00 01/19/24 20:00 Temperature 100.7 F H 100.7 F H Pulse Rate 100 98 103 H Respiratory Rate 13 13 Blood Pressure 126/65 135/65 Pulse Oximetry 100 100 Oxygen Delivery Fraction of Inspired Oxygen 01/19/24 20:00 01/19/24 20:15 01/19/24 20:42 Temperature Pulse Rate 103 H 101 H Respiratory Rate 13 Blood Pressure Pulse Oximetry 100 98 Oxygen Delivery Mechanical Ventilation Mechanical Ventilation Fraction of Inspired Oxygen 21 21 21 01/19/24 20:00 01/19/24 22:00 01/19/24 22:00 Temperature 101 F H Pulse Rate 101 H 111 H 111 H Respiratory Rate 18 Blood Pressure 127/62 Pulse Oximetry 100 Oxygen Delivery Fraction of Inspired Oxygen 01/20/24 00:00 01/20/24 00:08 01/20/24 00:00 Temperature 101.3 F H Pulse Rate 111 H 101 H Respiratory Rate 18 13 Blood Pressure 108/68 Pulse Oximetry 100 100 Oxygen Delivery Mechanical Ventilation Fraction of Inspired Oxygen 21 21 01/20/24 00:00 01/19/24 23:11 01/20/24 02:00 Temperature Pulse Rate 101 H 112 H 106 H Respiratory Rate Blood Pressure Pulse Oximetry 99 Oxygen Delivery Mechanical Ventilation Fraction of Inspired Oxygen 21 01/20/24 02:00 01/20/24 02:27 01/20/24 04:00 Temperature 101.1 F H Pulse Rate 106 H 105 H 103 H Respiratory Rate 14 Blood Pressure 139/69 Pulse Oximetry 100 99 Oxygen Delivery Mechanical Ventilation Fraction of Inspired Oxygen 21 01/20/24 04:30 01/20/24 04:00 01/20/24 04:00 Temperature 101.1 F H Pulse Rate 103 H 103 H Respiratory Rate 14 13 Blood Pressure 139/66 Pulse Oximetry 99 99 Oxygen Delivery Mechanical Ventilation Fraction of Inspired Oxygen 21 21 01/20/24 04:56 01/20/24 05:56 01/20/24 06:00 Temperature 101.2 F H Pulse Rate 104 H 103 H 104 H Respiratory Rate 14 Blood Pressure 143/68 H Pulse Oximetry 97 100 Oxygen Delivery Mechanical Ventilation Fraction of Inspired Oxygen 21 01/20/24 08:23 01/20/24 08:30 01/20/24 08:00 Temperature 101.2 F H Pulse Rate 112 H 112 H Respiratory Rate 14 Blood Pressure Pulse Oximetry 99 99 Oxygen Delivery Mechanical Ventilation Mechanical Ventilation Fraction of Inspired Oxygen 21 21 01/20/24 08:00 01/20/24 08:00 01/20/24 08:00 Temperature 101.1 F H Pulse Rate 112 H 112 H Respiratory Rate 14 Blood Pressure 146/75 H Pulse Oximetry 99 Oxygen Delivery Fraction of Inspired Oxygen 21 01/20/24 10:00 01/20/24 10:00 01/20/24 10:56 Temperature 101.5 F H Pulse Rate 106 H 106 H 103 H Respiratory Rate 14 Blood Pressure 111/67 Pulse Oximetry 99 99 Oxygen Delivery Mechanical Ventilation Fraction of Inspired Oxygen 01/20/24 09:30 Temperature 101.5 F H Pulse Rate Respiratory Rate Blood Pressure Pulse Oximetry Oxygen Delivery Fraction of Inspired Oxygen Intake/Output Intake/Output: Intake & Output 01/17/24 01/18/24 01/19/24 01/20/24 23:59 23:59 23:59 23:59 Intake Total 2300.8 1425 1492 771 Output Total 925 4225 375 60 Balance 1375.8 -2800 1117 711 Meds/Results Medications: Active Medications Generic Name Dose Route Start Last Admin Trade Name Freq PRN Reason Stop Dose Admin Acetaminophen 650 mg 01/10/24 08:02 01/20/24 08:30 Acetaminophen 325 Mg Tablet FEED TUBE 650 mg Q6H PRN Administration Mild Pain (1-3) or Fever Amlodipine Besylate 10 mg 01/11/24 14:05 01/17/24 08:44 Amlodipine Besylate 10 Mg Tablet FEED TUBE 10 mg DAILY CARMELA Administration Aspirin 325 mg 01/12/24 16:00 01/17/24 08:43 Aspirin 325 Mg Tablet FEED TUBE 325 mg DAILY@0800 CARMELA Administration Atorvastatin Calcium 40 mg 01/13/24 09:00 01/20/24 08:31 Atorvastatin 40 Mg Tablet FEED TUBE 40 mg DAILY CARMELA Administration Dextrose 12.5 gm 01/07/24 13:18 Dextrose 50% 25 Gm/50 Ml Syringe IV PUSH PRN PRN Hypoglycemia Protocol Epoetin Dane-epbx 10,000 units 01/12/24 09:20 01/19/24 08:38 Epoetin Dane-Epbx 10,000 Units/Ml Vial SUB-Q 10,000 units MOWEFR@09 CARMELA Administration Glucagon 1 mg 01/07/24 13:18 Glucagon For Inj 1 Mg Vial IM PRN PRN Hypoglycemia Protocol Glucose 15 gm 01/07/24 13:18 Glucose Oral Gel 15 Gm Of Glucse In 37.5 Gm Tube PO PRN PRN Hypoglycemia Protocol Hydralazine HCl 10 mg 01/18/24 02:20 01/18/24 05:40 Hydralazine 10 Mg Tablet PO Not Given Q6HR CARMELA Dextrose 1,000 mls @ 100 mls/hr 01/07/24 13:18 Dextrose 5% 1,000 Ml IVPB PRN PRN Hypoglycemia Protocol Albumin Human 50 mls @ 999 mls/hr 01/07/24 17:11 01/12/24 10:30 Albutein IVPB 02/06/24 17:10 Infused Q10M PRN Infusion HYPOTENSION Levetiracetam 500 mg in 100 mls @ 400 mls/hr 01/07/24 21:00 01/19/24 20:18 Keppra Iv IVPB Infused Q24H CARMELA Infusion Insulin Aspart 4 - 8 units 01/10/24 07:55 01/20/24 11:08 Insulin Aspart (*Bkc) 100 Units/Ml SUB-Q 6 units Q4H CARMELA Administration Protocol Insulin Glargine 60 units 01/17/24 09:00 01/20/24 08:44 Insulin Glargine (*Bkc) 100 Units/Ml SUB-Q 60 units Q12H CARMELA Administration Labetalol HCl 10 mg 01/18/24 08:37 Labetalol Hcl Inj 100 Mg/20 Ml Vial IV PUSH Q4H PRN Hypertension Metoprolol Tartrate 100 mg 01/16/24 09:00 01/17/24 08:43 Metoprolol Tartrate 50 Mg Tab FEED TUBE 100 mg Q12HR CARMELA Administration Multi-Ingred Cream/Lotion/Oil/Oint 1 applic 01/07/24 21:00 01/20/24 08:31 Mineral Oil/White Petrolatum Ointment EACH EYE 1 applic Q12HR CARMELA Administration Pantoprazole Sodium 40 mg 01/07/24 21:00 01/20/24 08:31 Pantoprazole Sodium Iv 40 Mg Vial IV PUSH 40 mg Q12HR CARMELA Administration Radiology Results: ITS Impressions Abdomen/Pelvis CT 01/07/24 16:52 IMPRESSION: No acute abdominopelvic process. Specifically, there is no CT evidence of bowel obstruction. No definite evidence of renal injury, noting that low-grade renal injury as can be difficult to detect without contrast. Renal Ultrasound 01/08/24 10:47 IMPRESSION: 1. Normal kidney sizes. No hydronephrosis. Chest/Abdomen/Pelvis CT 01/12/24 15:08 IMPRESSION: Interval enlargement of the liver, when compared with previous examination. Flattening of the inferior vena cava suggesting severe hypovolemia. Interval development of basilar atelectasis and trace bilateral pleural effusions. No additional findings which represents a change from prior examination performed 01/07/2024. Supportive devices are in good position. Redemonstration of multiple stones within the gallbladder which is not distended. Head CT 01/12/24 15:31 IMPRESSION: 1. 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 2. Large distribution of chronic encephalomalacia in the expected distribution of left middle cerebral artery. Abdomen Ultrasound 01/13/24 09:31 IMPRESSION: 1. Cholelithiasis. 2. Normal liver Doppler. Arterial/Peripheral Duplex 01/13/24 09:31 IMPRESSION: 1. Cholelithiasis. 2. Normal liver Doppler. Venous Doppler Study 01/15/24 17:14 IMPRESSION: 1. Deep vein thrombosis involving left common femoral vein. ADDENDUM: 01/15/24 [id number] I called this result to Apurva Mclean. Abdomen X-Ray 01/16/24 06:03 Impression: NG tube in satisfactory position. IVC Filter Placement X-Ray 01/20/24 06:18 IMPRESSION: Fluoroscopy used during IVC filter insertion. Chest X-Ray 01/20/24 06:19 Impression: 1: No acute cardiopulmonary disease. Labs Labs: Laboratory Results - last 24 hr 01/19/24 01/19/24 01/19/24 16:29 20:03 23:21 WBC RBC Hgb Hct MCV MCH MCHC RDW Plt Count MPV Puncture Site ABG pH ABG pCO2 ABG pO2 ABG PO2/FiO2 Ratio ABG HCO3 ABG O2 Saturation ABG O2 Content ABG Base Excess A-a Gradient Oxyhemoglobin Carboxyhemoglobin Methemoglobin Reduced Hemoglobin Total Hemoglobin O2 Delivery Device O2 Liters/Min Minute Volume Vent Rate Vent Mode FiO2 Tidal Volume PEEP Peak Inspir Pressure Pressure Support Sodium Potassium Chloride Carbon Dioxide Anion Gap BUN Creatinine Estim Creat Clear Calc Estimated GFR Glucose POC Capillary Glucose 331 H 346 H 322 H Calcium Phosphorus Magnesium Total Bilirubin AST ALT Alkaline Phosphatase Total Protein Albumin 01/20/24 01/20/24 01/20/24 04:18 04:27 04:31 WBC 14.7 H RBC 2.76 L Hgb 8.2 L Hct 26.3 L MCV 95.3 MCH 29.7 MCHC 31.2 L RDW 17.2 H Plt Count 377 H MPV 11.7 H Puncture Site Left brachial ABG pH 7.486 H ABG pCO2 32.6 L ABG pO2 77.5 L ABG PO2/FiO2 Ratio 3.69 ABG HCO3 24.1 ABG O2 Saturation 96.4 ABG O2 Content 13.1 L ABG Base Excess 1.0 A-a Gradient 33.2 Oxyhemoglobin 95.7 Carboxyhemoglobin 0.3 Methemoglobin 0.2 Reduced Hemoglobin 3.8 Total Hemoglobin 9.7 L O2 Delivery Device Ventilator O2 Liters/Min Not Reportable Minute Volume Not Reportable Vent Rate Not Reportable Vent Mode Asv FiO2 21 Tidal Volume Not Reportable PEEP 5 Peak Inspir Pressure Not Reportable Pressure Support Not Reportable Sodium 139 Potassium 3.6 Chloride 104 Carbon Dioxide 26 Anion Gap 9 BUN 75 H D Creatinine 3.70 H Estim Creat Clear Calc 14 Estimated GFR 12 L Glucose 296 H POC Capillary Glucose 282 H Calcium 8.7 Phosphorus 3.5 Magnesium 2.3 Total Bilirubin 0.5 AST 42 H ALT 25 Alkaline Phosphatase 106 Total Protein 7.0 Albumin 3.2 L 01/20/24 01/20/24 08:34 11:07 WBC RBC Hgb Hct MCV MCH MCHC RDW Plt Count MPV Puncture Site ABG pH ABG pCO2 ABG pO2 ABG PO2/FiO2 Ratio ABG HCO3 ABG O2 Saturation ABG O2 Content ABG Base Excess A-a Gradient Oxyhemoglobin Carboxyhemoglobin Methemoglobin Reduced Hemoglobin Total Hemoglobin O2 Delivery Device O2 Liters/Min Minute Volume Vent Rate Vent Mode FiO2 Tidal Volume PEEP Peak Inspir Pressure Pressure Support Sodium Potassium Chloride Carbon Dioxide Anion Gap BUN Creatinine Estim Creat Clear Calc Estimated GFR Glucose POC Capillary Glucose 290 H 318 H Calcium Phosphorus Magnesium Total Bilirubin AST ALT Alkaline Phosphatase Total Protein Albumin Quality VTE Prophylaxis VTE prophylaxis: mechanical ordered and pharmacologic ordered
[2024-01-20] MEDS: MEROPENEM 500 MG/NS 100 ML 500 MG/100 ML BAG 200 MG IVPB (15:49)
[2024-01-20 16:08] LABS: Glucose Point of Care 358 mg/dl (65-105)
[2024-01-20] MEDS: MICAFUNGIN SODIUM 100 MG in SODIUM CHLORIDE 0.9% IV 100 ML IVPB (16:23)
[2024-01-20 16:52] LABS: Vancomycin Random 13.3 ug/mL (10-20)
[2024-01-20] MEDS: VANCOMYCIN 1,000 MG/NS 250 ML 1,000 MG/250 ML BAG 250 MG IVPB (18:28)
[2024-01-20 19:06] LABS: MRSA (PCR) NOT DETECTED (NOT DETECTE)
[2024-01-20 20:19] LABS: Glucose Point of Care 333 mg/dl (65-105)
[2024-01-20] MEDS: levETIRAcetam 500MG/NACL 100ML 500 MG/100 ML BAG 400 MG IVPB (20:31)
[2024-01-21] VITALS (23 sets, daily range): BP systolic 134–187; BP diastolic 67–79; PULSE 85–112; RESP 10–21; TEMP 37.4–38.1; O2SAT 99–100
[2024-01-21] MEDS: MEROPENEM 500 MG/NS 100 ML 500 MG/100 ML BAG 200 MG IVPB ×2 (04:10→14:48)
[2024-01-21] MEDS: INSULIN ASPART (*BKC) 100 UNITS/ML SUB-Q ×5 (04:15→20:22)
[2024-01-21 04:26] LABS: Glucose Point of Care 377 mg/dl (65-105)
[2024-01-21 05:25] LABS: Base Excess ABG -0.2 mEq/l (+/-2.0); Carboxyhemoglobin 0.6 % THb (0-2.0); Fractional Inspired Oxygen 21 %; HCO3 ABG 23.5 mEq/l (22.0-26.0); Methemoglobin ABG 0.4 %THb (0-1.5); Oxygen Content ABG 12.3 %vol (16.0-22.0); Oxygen Saturation ABG 96.6 % (95.0-100.0); Oxyhemoglobin 95.3 % THb (90.0-100.0); PCO2 ABG 34.5 mmHg (35.0-45.0); PO2 ABG 82.4 mmHg (80.0-100.0); PO2 FiO2 Ratio Arterial Blood 3.92 %; Reduced Hemoglobin 3.7 %THb (0-5.0); Total Hemoglobin 9.1 g/dL (12.0-18.0); pH ABG 7.451 (7.350-7.450)
[2024-01-21 05:28] LABS: Device VENTILATOR; Modified Allen's Test Pass; Site Drawn LEFT BRACHIAL
[2024-01-21 05:29] LABS: Arterial Blood Gas Minute Volume 5.9 LPM; Arterial Blood Gas PEEP 5 cmH2O; Arterial Blood Gas Vent Mode ASV
[2024-01-21 06:47] LABS: Basophils Absolute Auto 0.1 K/mm3 (0.0-0.1); Basophils Percent Auto 0.5 % (0.2-1.2); Eosinophils Absolute Auto 0.2 K/mm3 (0-0.3); Eosinophils Percent Auto 1.6 % (0-4.4); Hematocrit 27.9 % (37.0-47.0); Hemoglobin 8.5 g/dL (12.0-15.0); Immature Granulocyte Absolute 0.16 K/mm3 (0.00-0.031); Immature Granulocyte Percent A 1.2 % (0-0.5); Lymphocytes Percent Auto 8.5 % (18.3-44.2); Mean Corpuscular HGB Conc 30.5 g/dl (32-36); Mean Corpuscular Hemoglobin 29.5 pg (26-34); Mean Corpuscular Volume 96.9 fl (80-100); Mean Platelet Volume 12.5 fl (7.4-10.4); Monocytes Absolute Auto 0.5 K/mm3 (0.1-0.6); Neutrophils Absolute Auto 10.9 K/mm3 (1.3-6.7); Neutrophils Percent Auto 84.2 % (45.5-73.1); Nucleated Red Blood Cells Perc 0.5 % (0.0-0.2); Platelet Count Result 390 k/mm3 (150-375); Red Blood Count 2.88 M/mm3 (4.2-5.4); Red Cell Distribution Width 17.6 % (11.5-14.5); White Blood Count 12.9 K/mm3 (4.5-10.0)
[2024-01-21 06:58] LABS: Lactic Acid Reflex 1.3 mmol/L (0.7-2.0)
[2024-01-21 07:01] LABS: Alanine Aminotransferase 26 U/L (6-35); Albumin Level 3.3 g/dL (3.5-5.1); Alkaline Phosphatase 110 U/L (38-126); Anion Gap 12 mmol/L (4-12); Aspartate Amino Transferase 35 U/L (14-36); Bilirubin,Total 0.3 mg/dL (0.2-1.3); Blood Urea Nitrogen 101 mg/dL (7-17); Calcium 8.9 mg/dL (8.4-10.2); Carbon Dioxide 24 mmol/L (22-30); Chloride 103 mmol/L (98-107); Estimated CRCL calculation 10 ml/min; Estimated Glomerular Filt Rate 9; Glucose 393 mg/dL (65-110); Magnesium 2.5 mg/dL (1.6-2.3); Phosphorus 3.9 mg/dL (2.5-4.5); Potassium 4.1 mmol/L (3.4-5.0); Sodium 139 mmol/L (137-145)
[2024-01-21 07:14] LABS: Vancomycin Random 23.2 ug/mL (10-20)
--- NOTE | 2024-01-21 08:42 | P.PNINT_ITS ---
Progress Note: A&P Assessment and Plan (1) Septic shock: Code(s): A41.9 - Sepsis, unspecified organism; R65.21 - Severe sepsis with septic shock Status: Acute Assessment and Plan: RESOLVED Patient hypotensive on presentation Patient was given IV fluid bolus followed by maintenance IV fluids -lactic acid has improved -Levophed weaned off -off IV fluids -source appears to be UTI. Urine and blood cultures are negative till now, STATUS POST CEFTRIAXONE -status post stress dose steroids - 01/10 continues to have fever although other markers of infection are improved as normal WBC. 01/10: Repeat blood cultures are negative x2 Clark catheter change 01/11 Minimal respiratory secretions, sputum cultures growing yeast which is likely a colonization Change Rocephin to cefepime and vancomycin 01/14: Patient continues to have low-grade fever but overall fever curve is down. White count is normal. CT scan of chest and pelvis does not show any area suggestive of infection. Clark catheter was changed. Procalcitonin level is also on the lower side. Continue cefepime but will discontinue vancomycin at this time. Cultures are negative till now. -lipase was within normal limits -01/15/2024: lower extremity venous Dopplers: Left common femoral vein DVT -01/14: patient was started on heparin infusion OFF all abx 01/18: Remains febrile, patient has been carl cultured this morning, WBC trending up -chest x-ray is not show any new infiltrates -holding antibiotics for now, if patient continues to spike fevers and WBC count increase tomorrow will add antibiotics 01/18: Blood culture growing Gram-positive cocci in clusters 1/2 bottles 01/18: Urine cultures growing Tatiana albicans 01/18: Sputum cultures growing Yeast 01/19: Patient remained febrile with T-max of 101.3. Patient was started on vancomycin, meropenem and micafungin (01/19) (2) Stroke: Code(s): I63.9 - Cerebral infarction, unspecified Status: Acute Assessment and Plan: Patient presented with altered mental status but at that time patient was respiratory failure acute renal failure acidosis and sepsis. CT scan on presentation showed only old stroke and encephalomalacia Since then patient has not woken up despite holding sedation for multiple days and dialysis. 01/[address] was done which showed. 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 These are likely secondary to hypotension Echo did not show any thrombus or ASD Continue aspirin and statin Neurology following EEG 01/12 - This is an abnormal EEG due to presence of moderate diffuse background slowing suggested generalized cephalopathy. No significant change in neurological status (3) Encephalopathy: Code(s): G93.40 - Encephalopathy, unspecified Status: Acute Assessment and Plan: Patient presented with encephalopathy, altered mental status, delirium, confusion -most likely related to uremia, infection, severe acidosis and baseline flow malacia from past stroke TSH and ammonia normal Patient has been off sedation since 01/09/2024. Still not responsive.. Will continue hold sedatives. EEG as above Patient was dialyzed 01/11 to help with drug removal. Minimal improved Encephalopathy likely secondary to strokes. See above. Neurology following -patient has been off sedation since 01/09/2024, has not woken up -01/16: Ammonia levels are normal 01/11: Repeat CT scan of the brain IMPRESSION: 1. 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 2. Large distribution of chronic encephalomalacia in the expected distribution of left middle cerebral artery. 01/06: CT brain on admission IMPRESSION: 1. No acute intracranial process. 2. 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 3. Additional more diffuse likely age-related mild to moderate diffuse volume loss and mild scattered white matter hypoattenuation consistent with chronic small vessel ischemic disease. (4) Acute respiratory failure: Code(s): J96.00 - Acute respiratory failure, unspecified whether with hypoxia or hypercapnia Status: Acute Assessment and Plan: Patient had an episode of emesis in the ER, given her altered mental status encephalopathy, risk of aspiration with impending respiratory failure patient was intubated on 01/06/2025 -chest x-ray had ABG reviewed -patient currently on ASV mode of ventilation, peep of 5, 21% FiO2 and tolerating -sedation is on hold. -weaning will depend on improvement in mental status. (5) Acute kidney failure: Code(s): N17.9 - Acute kidney failure, unspecified Status: Acute Assessment and Plan: On chronic kidney injury, unknown cause, CT of the abdomen and pelvis did not show any hydronephrosis or urinary obstruction -significant lactic acidosis and metabolic acidosis -patient has a history of diabetes, hypertension which is likely the cause of chronic kidney disease -patient on lisinopril hydrochlorothiazide and metformin at home -patient was given a total of 3 L IV fluid bolus, 1 L in the ER and 2 L in the ICU -sodium bicarb IV pushes x4 in the ICU -patient was started on sodium bicarb infusion after discussing with Nephrology, which her was discontinued once hemodialysis was started -patient was started on hemodialysis and was dialyzed x 3 days -patient continues to have decent urine output - 01/11 patient was dialyzed again 1 L fluid was removed -continue to monitor urine output, electrolytes and renal function -01/16: worsening creatinine, increased edema, decreased urine output. Discussed with Nephrology, patient will dialyzed -continues to have decreased urine output -dialysis per Nephrology (6) Metabolic acidosis: Code(s): E87.20 - Acidosis, unspecified Status: Acute Assessment and Plan: RESOLVED Patient presented with significant metabolic acidosis and lactic acidosis. This could be combination of septic shock, acute kidney injury but also a possibility of metformin toxicity Patient received hemodialysis and IV bicarb. Acidosis has resolved. Further dialysis per Nephrology (7) Diastolic dysfunction: Code(s): I51.89 - Other ill-defined heart diseases Status: Acute Assessment and Plan: Echo 01/11 Summary 1. Left ventricular systolic function is normal, estimated at 60-65%. 2. There is moderately increased left ventricular wall thickness. 3. Intact interatrial septum visualized by agitated saline imaging. 4. There is mild aortic valve calcification. 5. There is mild aortic valve stenosis with a peak velocity of 190 cm/s,mean gradient of 8 mmHg, and aortic valve area of 1.8 cm2. 6. There is mild tricuspid valve regurgitation. 7. Mild pulmonary hypertension, estimated pulmonary arterial systolicpressure is 46 mmHg. (8) Insulin dependent diabetes mellitus: Status: Chronic Assessment and Plan: Continue sliding scale insulin Accu-Cheks Lantus was increased and will dose b.i.d. (hold a.m. Lantus dose as patient is NPO for the procedure) (9) Right hemiparesis: Code(s): G81.91 - Hemiplegia, unspecified affecting right dominant side Status: Acute Assessment and Plan: History of left-sided cerebral hemisphere and CVA, residual mild aphasia and right-sided weakness (10) Seizures: Code(s): R56.9 - Unspecified convulsions Status: Acute Assessment and Plan: Patient has a history of seizures, on p.o. Keppra 500 mg p.o. q.12 hours Continue Keppra IV 500 mg IV q.24 (discuss with pharmacist) EEG negative for any seizure-like activity (11) Hypertension: Code(s): I10 - Essential (primary) hypertension Status: Acute Assessment and Plan: Blood pressures have been labile, will hold metoprolol, hydralazine and amlodipine for now -patient has p.r.n. labetalol (12) Anemia: Code(s): D64.9 - Anemia, unspecified Status: Acute Assessment and Plan: 01/16: Patient has been on heparin infusion for DVT in the right common femoral vein. Dropped hemoglobin this morning to 6.7 from 7.8. - heparin infusion Discontinued -stool for Hemoccult was Negative -01/17: IVC filter placement by surgery Plan DVT prophylaxis: Hold heparin infusion due to anemia Stress ulcer prophylaxis: Protonix IV q.12 hours Nutrition: Continue tube feeds Code Status: DNR Critical Care Time Spent: 32 minutes 01/20/2024: Discussed with sons Hakan and June, Danuta in the conference room this afternoon. I discussed with them at length regarding patient's medical condition and problems from the time she came to the hospital. They are aware that she has had multiple strokes, encephalopathy and not waking up since her sedation has been turned off on 01/09/2024. She is in renal failure requiring intermittent dialysis, has a DVT with IVC filters, anemia. The and the sons stated that they do not want the patient to get tracheostomy or the PEG tube. And they want to make her comfortable but requested if he could wait for 1 week since patient's sister was very close to her will be traveling from [place] to see her. They will keep us posted on her arrival. In the meantime patient remains DNR which was reiterated and acceptable to the and the sons. Bedside RN Anali and child care team lead Ericka were present during the family meeting. 01/17: Discuss with patient's son, Hakan, updated with patient's condition and plan of care. Family meeting on 01/20/2024 for further plan of care for the patient. Due to a high probability of clinically significant, life threatening deterioration, the patient required my highest level of preparedness to in [facility] emergently and I personally spent this critical care time directly and personally managing the patient. This critical care time included obtaining a history; examining the patient; pulse oximetry; ordering and review of studies; arranging urgent treatment with development of a management plan; evaluation of patient's response to treatment; frequent reassessment; and discussions with other providers. It was exclusive of separately billable procedures and treating other patients and teaching time. Please see Assessment and Plan section and the rest of the note for further information on patient assessment and treatment This dictation may have been done utilizing a voice recognition system. Attempts have been made to correct errors. However, there may be uncorrected grammatical, spelling, and recognitions errors present. Subjective Date/time seen: 01/21/24 08:42 Interval history: Reason for consult: Altered mental status, acute respiratory failure, severe metabolic acidosis, multiple strokes, DVT 01/21/2024: Patient seen and examined the ICU, remains intubated on ASV mode of ventilation, peep of 5, 21% FiO2 with very good O2 sats. Sedation has been off since 01/09/2024. Patient does not open her eyes or follows simple commands, does withdraw to pain with decerebrate posturing on the upper extremities and withdraws to pain on lower extremities. Urine output has been low, WBC count trending down. Patient's fever curve trending down, T-max of 100.2? overnight Review of Systems Review of Systems: ROS unobtainable: Yes unobtainable due to endotracheal tube, unobtainable due to medical condition and unobtainable due to mental status Exam Narrative: General: Intubated and sedated HEENT:? Pupils are equal and reactive to light, patient has positive corneal reflex, sclera is clear, ETT in place, facial puffiness noted Neck:? Supple, right IJ dialysis catheter in place Respiratory:? Coarse breath sounds bilaterally, decreased at bases no wheezing, adequate air entry Cardiac:? S1-S2 normal, regular rate and rhythm, Abdomen:? Soft, nontender, nondistended, hypoactive bowel sounds, old midline surgical scar noted Extremities:? Dry skin, decreased pedal pulses, pitting edema bilateral lower extremities Neuro:? Patient is intubated, off sedation, PERRL, patient withdraws to pain stimulus in bilateral lower extremities, decerebrate posturing of the upper extremities on pain stimuli. Skin:? Dry and flaky skin on lower extremities, skin is warm Psych:? Unable to assess at this time Objective Data Vital Signs Vital Signs: Vital Signs - 24 hr 01/20/24 10:00 01/20/24 10:00 01/20/24 10:56 Temperature 101.5 F H Pulse Rate 106 H 106 H 103 H Respiratory Rate 14 Blood Pressure 111/67 Pulse Oximetry 99 99 Oxygen Delivery Mechanical Ventilation Fraction of Inspired Oxygen 21 01/20/24 09:30 01/20/24 12:00 01/20/24 12:00 Temperature 101.5 F H 100.9 F H Pulse Rate 99 Respiratory Rate 21 H Blood Pressure 108/63 Pulse Oximetry 100 Oxygen Delivery Fraction of Inspired Oxygen 21 01/20/24 12:00 01/20/24 12:00 01/20/24 13:54 Temperature Pulse Rate 99 99 101 H Respiratory Rate 21 H Blood Pressure Pulse Oximetry 99 98 Oxygen Delivery Mechanical Ventilation Mechanical Ventilation Fraction of Inspired Oxygen 21 21 01/20/24 14:00 01/20/24 14:00 01/20/24 16:00 Temperature 100.7 F H 100.7 F H Pulse Rate 101 H 101 H Respiratory Rate 14 Blood Pressure 124/67 Pulse Oximetry 100 Oxygen Delivery Fraction of Inspired Oxygen 01/20/24 16:16 01/20/24 16:00 01/20/24 16:00 Temperature Pulse Rate 104 H 106 H Respiratory Rate Blood Pressure Pulse Oximetry 98 Oxygen Delivery Mechanical Ventilation Fraction of Inspired Oxygen 21 21 01/20/24 16:00 01/20/24 17:00 01/20/24 18:00 Temperature 100.5 F H 100.7 F H Pulse Rate 99 96 Respiratory Rate 15 Blood Pressure 122/75 Pulse Oximetry 100 Oxygen Delivery Fraction of Inspired Oxygen 01/20/24 18:00 01/20/24 16:00 01/20/24 19:58 Temperature 100.5 F H Pulse Rate 97 100 104 H Respiratory Rate 14 14 Blood Pressure 135/69 Pulse Oximetry 100 99 100 Oxygen Delivery Mechanical Ventilation Mechanical Ventilation Fraction of Inspired Oxygen 21 21 01/20/24 20:00 01/20/24 22:00 01/20/24 23:03 Temperature 99.9 F H 99.6 F Pulse Rate 102 H 103 H 102 H Respiratory Rate 18 18 Blood Pressure 147/66 H 158/68 H Pulse Oximetry 100 100 100 Oxygen Delivery Mechanical Ventilation Fraction of Inspired Oxygen 21 01/20/24 20:00 01/20/24 20:00 01/20/24 20:00 Temperature Pulse Rate 101 H 101 H Respiratory Rate 16 Blood Pressure Pulse Oximetry 100 Oxygen Delivery Mechanical Ventilation Fraction of Inspired Oxygen 21 21 01/20/24 22:00 01/21/24 00:00 01/21/24 00:00 Temperature Pulse Rate 103 H 102 H 102 H Respiratory Rate 20 Blood Pressure Pulse Oximetry 100 Oxygen Delivery Mechanical Ventilation Fraction of Inspired Oxygen 21 01/21/24 00:00 01/21/24 00:00 01/21/24 02:00 Temperature 99.7 F H Pulse Rate 102 H 103 H Respiratory Rate 20 Blood Pressure 147/67 H Pulse Oximetry 100 Oxygen Delivery Fraction of Inspired Oxygen 21 01/21/24 02:00 01/21/24 02:11 01/21/24 04:53 Temperature 99.9 F H Pulse Rate 103 H 101 H 103 H Respiratory Rate 21 H Blood Pressure 148/67 H Pulse Oximetry 100 100 100 Oxygen Delivery Mechanical Ventilation Mechanical Ventilation Fraction of Inspired Oxygen 21 21 01/21/24 04:00 01/21/24 04:00 01/21/24 04:00 Temperature Pulse Rate 103 H 103 H Respiratory Rate 18 Blood Pressure Pulse Oximetry 100 Oxygen Delivery Mechanical Ventilation Fraction of Inspired Oxygen 21 21 01/21/24 04:00 01/21/24 07:20 01/21/24 07:20 Temperature 100.2 F H Pulse Rate 103 H 103 H Respiratory Rate 20 Blood Pressure 155/70 H Pulse Oximetry 100 100 100 Oxygen Delivery Mechanical Ventilation Mechanical Ventilation Fraction of Inspired Oxygen 21 21 01/21/24 06:00 01/21/24 06:00 Temperature 100.2 F H Pulse Rate 100 100 Respiratory Rate 15 Blood Pressure 164/71 H Pulse Oximetry 100 Oxygen Delivery Fraction of Inspired Oxygen Intake/Output Intake/Output: Intake & Output 01/18/24 01/19/24 01/20/24 01/21/24 23:59 23:59 23:59 23:59 Intake Total 1425 1492 1892 934 Output Total 4225 375 360 50 Balance -2800 1117 1532 884 Meds/Results Medications: Active Medications Generic Name Dose Route Start Last Admin Trade Name Freq PRN Reason Stop Dose Admin Acetaminophen 650 mg 01/10/24 08:02 01/20/24 16:00 Acetaminophen 325 Mg Tablet FEED TUBE 650 mg Q6H PRN Administration Mild Pain (1-3) or Fever Amlodipine Besylate 10 mg 01/11/24 14:05 01/17/24 08:44 Amlodipine Besylate 10 Mg Tablet FEED TUBE 10 mg DAILY CARMELA Administration Aspirin 325 mg 01/12/24 16:00 01/17/24 08:43 Aspirin 325 Mg Tablet FEED TUBE 325 mg DAILY@0800 CARMELA Administration Atorvastatin Calcium 40 mg 01/13/24 09:00 01/20/24 08:31 Atorvastatin 40 Mg Tablet FEED TUBE 40 mg DAILY CARMELA Administration Dextrose 12.5 gm 01/07/24 13:18 Dextrose 50% 25 Gm/50 Ml Syringe IV PUSH PRN PRN Hypoglycemia Protocol Epoetin Dane-epbx 10,000 units 01/12/24 09:20 01/19/24 08:38 Epoetin Dane-Epbx 10,000 Units/Ml Vial SUB-Q 10,000 units MOWEFR@09 CARMELA Administration Glucagon 1 mg 01/07/24 13:18 Glucagon For Inj 1 Mg Vial IM PRN PRN Hypoglycemia Protocol Glucose 15 gm 01/07/24 13:18 Glucose Oral Gel 15 Gm Of Glucse In 37.5 Gm Tube PO PRN PRN Hypoglycemia Protocol Hydralazine HCl 10 mg 01/18/24 02:20 01/18/24 05:40 Hydralazine 10 Mg Tablet PO Not Given Q6HR CARMELA Dextrose 1,000 mls @ 100 mls/hr 01/07/24 13:18 Dextrose 5% 1,000 Ml IVPB PRN PRN Hypoglycemia Protocol Albumin Human 50 mls @ 999 mls/hr 01/07/24 17:11 01/12/24 10:30 Albutein IVPB 02/06/24 17:10 Infused Q10M PRN Infusion HYPOTENSION Levetiracetam 500 mg in 100 mls @ 400 mls/hr 01/07/24 21:00 01/20/24 20:44 Keppra Iv IVPB Infused Q24H CARMELA Infusion Meropenem 500 mg in 100 mls @ 200 mls/hr 01/20/24 15:00 01/21/24 04:40 IVPB Infused Q12H CARMELA Infusion Micafungin Sodium 100 mg/ 100 mls @ 100 mls/hr 01/20/24 16:00 01/20/24 17:23 Sodium Chloride IVPB Infused Q24H [facility] Infusion Insulin Aspart 4 - 8 units 01/10/24 07:55 01/21/24 04:16 Insulin Aspart (*Bkc) 100 Units/Ml SUB-Q Not Given Q4H [facility] Protocol Insulin Glargine 70 units 01/21/24 09:00 Insulin Glargine (*Bkc) 100 Units/Ml SUB-Q Q12H [facility] Labetalol HCl 10 mg 01/18/24 08:37 Labetalol Hcl Inj 100 Mg/20 Ml Vial IV PUSH Q4H PRN Hypertension Metoprolol Tartrate 100 mg 01/16/24 09:00 01/17/24 08:43 Metoprolol Tartrate 50 Mg Tab FEED TUBE 100 mg Q12HR CARMELA Administration Multi-Ingred Cream/Lotion/Oil/Oint 1 applic 01/07/24 21:00 01/20/24 20:31 Mineral Oil/White Petrolatum Ointment EACH EYE 1 applic Q12HR CARMELA Administration Pantoprazole Sodium 40 mg 01/07/24 21:00 01/20/24 20:21 Pantoprazole Sodium Iv 40 Mg Vial IV PUSH 40 mg Q12HR CARMELA Administration Vancomycin HCl 1 each 01/20/24 14:59 Vancomycin For Hemodialysis IVPB PRN PRN Vancomycin Protocol Radiology Results: ITS Impressions Abdomen/Pelvis CT 01/07/24 16:52 IMPRESSION: No acute abdominopelvic process. Specifically, there is no CT evidence of bowel obstruction. No definite evidence of renal injury, noting that low-grade renal injury as can be difficult to detect without contrast. Renal Ultrasound 01/08/24 10:47 IMPRESSION: 1. Normal kidney sizes. No hydronephrosis. Chest/Abdomen/Pelvis CT 01/12/24 15:08 IMPRESSION: Interval enlargement of the liver, when compared with previous examination. Flattening of the inferior vena cava suggesting severe hypovolemia. Interval development of basilar atelectasis and trace bilateral pleural effusions. No additional findings which represents a change from prior examination performed 01/07/2024. Supportive devices are in good position. Redemonstration of multiple stones within the gallbladder which is not disten ded. Head CT 01/12/24 15:31 IMPRESSION: 1. 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 2. Large distribution of chronic encephalomalacia in the expected distribution of left middle cerebral artery. Abdomen Ultrasound 01/13/24 09:31 IMPRESSION: 1. Cholelithiasis. 2. Normal liver Doppler. Arterial/Peripheral Duplex 01/13/24 09:31 IMPRESSION: 1. Cholelithiasis. 2. Normal liver Doppler. Venous Doppler Study 01/15/24 17:14 IMPRESSION: 1. Deep vein thrombosis involving left common femoral vein. ADDENDUM: 01/15/24 [id number] I called this result to Apurva Mclean. Abdomen X-Ray 01/16/24 06:03 Impression: NG tube in satisfactory position. IVC Filter Placement X-Ray 01/20/24 06:18 IMPRESSION: Fluoroscopy used during IVC filter insertion. Chest X-Ray 01/20/24 06:19 Impression: 1: No acute cardiopulmonary disease. Labs Labs: Laboratory Results - last 24 hr 01/20/24 01/20/24 01/20/24 11:07 15:45 15:56 WBC RBC Hgb Hct MCV MCH MCHC RDW Plt Count MPV Immature Gran % (Auto) Neut % (Auto) Lymph % (Auto) Cuming % (Auto) Eos % (Auto) Baso % (Auto) Lymph # (Auto) Cuming # (Auto) Eos # (Auto) Baso # (Auto) Abs Immat Gran (auto) Absolute Neuts (auto) Absolute Nucleated RBC Nucleated RBC % Puncture Site ABG pH ABG pCO2 ABG pO2 ABG PO2/FiO2 Ratio ABG HCO3 ABG O2 Saturation ABG O2 Content ABG Base Excess A-a Gradient Oxyhemoglobin Carboxyhemoglobin Methemoglobin Reduced Hemoglobin Total Hemoglobin O2 Delivery Device O2 Liters/Min Minute Volume Vent Rate Vent Mode FiO2 Tidal Volume PEEP Peak Inspir Pressure Pressure Support Sodium Potassium Chloride Carbon Dioxide Anion Gap BUN Creatinine Estim Creat Clear Calc Estimated GFR Glucose POC Capillary Glucose 318 H 358 H Lactic Acid Calcium Phosphorus Magnesium Total Bilirubin AST ALT Alkaline Phosphatase Total Protein Albumin Nasal MRSA (PCR) Not detected Random Vancomycin 01/20/24 01/20/24 01/21/24 16:16 20:16 04:10 WBC RBC Hgb Hct MCV MCH MCHC RDW Plt Count MPV Immature Gran % (Auto) Neut % (Auto) Lymph % (Auto) Cuming % (Auto) Eos % (Auto) Baso % (Auto) Lymph # (Auto) Cuming # (Auto) Eos # (Auto) Baso # (Auto) Abs Immat Gran (auto) Absolute Neuts (auto) Absolute Nucleated RBC Nucleated RBC % Puncture Site ABG pH ABG pCO2 ABG pO2 ABG PO2/FiO2 Ratio ABG HCO3 ABG O2 Saturation ABG O2 Content ABG Base Excess A-a Gradient Oxyhemoglobin Carboxyhemoglobin Methemoglobin Reduced Hemoglobin Total Hemoglobin O2 Delivery Device O2 Liters/Min Minute Volume Vent Rate Vent Mode FiO2 Tidal Volume PEEP Peak Inspir Pressure Pressure Support Sodium Potassium Chloride Carbon Dioxide Anion Gap BUN Creatinine Estim Creat Clear Calc Estimated GFR Glucose POC Capillary Glucose 333 H 377 H Lactic Acid Calcium Phosphorus Magnesium Total Bilirubin AST ALT Alkaline Phosphatase Total Protein Albumin Nasal MRSA (PCR) Random Vancomycin 13.3 01/21/24 01/21/24 04:55 06:23 WBC 12.9 H RBC 2.88 L Hgb 8.5 L Hct 27.9 L MCV 96.9 MCH 29.5 MCHC 30.5 L RDW 17.6 H Plt Count 390 H MPV 12.5 H Immature Gran % (Auto) 1.2 H Neut % (Auto) 84.2 H Lymph % (Auto) 8.5 L Cuming % (Auto) 4.0 Eos % (Auto) 1.6 Baso % (Auto) 0.5 Lymph # (Auto) 1.10 Cuming # (Auto) 0.5 Eos # (Auto) 0.2 Baso # (Auto) 0.1 Abs Immat Gran (auto) 0.16 H Absolute Neuts (auto) 10.9 H Absolute Nucleated RBC 0.060 H Nucleated RBC % 0.5 H Puncture Site Left brachial ABG pH 7.451 H ABG pCO2 34.5 L ABG pO2 82.4 ABG PO2/FiO2 Ratio 3.92 ABG HCO3 23.5 ABG O2 Saturation 96.6 ABG O2 Content 12.3 L ABG Base Excess -0.2 A-a Gradient 26.0 Oxyhemoglobin 95.3 Carboxyhemoglobin 0.6 Methemoglobin 0.4 Reduced Hemoglobin 3.7 Total Hemoglobin 9.1 L O2 Delivery Device Ventilator O2 Liters/Min Not Reportable Minute Volume 5.9 Vent Rate Not Reportable Vent Mode Asv FiO2 21 Tidal Volume Not Reportable PEEP 5 Peak Inspir Pressure Not Reportable Pressure Support Not Reportable Sodium 139 Potassium 4.1 Chloride 103 Carbon Dioxide 24 Anion Gap 12 BUN 101 H D Creatinine 5.10 H Estim Creat Clear Calc 10 Estimated GFR 9 L Glucose 393 H POC Capillary Glucose Lactic Acid 1.3 Calcium 8.9 Phosphorus 3.9 Magnesium 2.5 H Total Bilirubin 0.3 AST 35 ALT 26 Alkaline Phosphatase 110 Total Protein 7.0 Albumin 3.3 L Nasal MRSA (PCR) Random Vancomycin 23.2 H Quality VTE Prophylaxis VTE prophylaxis: mechanical ordered and pharmacologic ordered
--- NOTE | 2024-01-21 08:47 | PM.IMPN ---
Progress Note: A&P Assessment and Plan (1) Stroke: Code(s): I63.9 - Cerebral infarction, unspecified Status: Acute (2) Encephalopathy: Code(s): G93.40 - Encephalopathy, unspecified Status: Acute (3) Acute respiratory failure: Code(s): J96.00 - Acute respiratory failure, unspecified whether with hypoxia or hypercapnia Status: Acute (4) Acute kidney failure: Code(s): N17.9 - Acute kidney failure, unspecified Status: Acute (5) Metabolic acidosis: Code(s): E87.20 - Acidosis, unspecified Status: Acute (6) Septic shock: Code(s): A41.9 - Sepsis, unspecified organism; R65.21 - Severe sepsis with septic shock Status: Acute (7) Diastolic dysfunction: Code(s): I51.89 - Other ill-defined heart diseases Status: Acute (8) Insulin dependent diabetes mellitus: Status: Chronic (9) Right hemiparesis: Code(s): G81.91 - Hemiplegia, unspecified affecting right dominant side Status: Acute (10) Seizures: Code(s): R56.9 - Unspecified convulsions Status: Acute (11) Hypertension: Code(s): I10 - Essential (primary) hypertension Status: Acute (12) Anemia: Code(s): D64.9 - Anemia, unspecified Status: Acute Plan 63-year-old female with history of stroke, insulin-dependent diabetes, hypertension, hyperlipidemia, chronic kidney disease, anemia chronic disease, depression, and anxiety who presented to the emergency department accompanied by her son for evaluation of confusion. Was intubated. CT scan on presentation showed only old stroke and encephalomalacia Since then patient has not woken up despite holding sedation for multiple days and dialysis.01/[address] was done which showed. 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 These are likely secondary to hypotension Echo did not show any thrombus or ASD Acute encephalopathy Continue with aspirin, statin Neurology was following EEG was done Patient has been off sedation, still not responsive Ammonia levels unremarkable .Acute kidney injury: CT of the abdomen and pelvis did not show any hydronephrosis or urinary obstruction patient was started on hemodialysis Acidosis has resolved . Septic shock: Resolved Patient hypotensive on presentation Patient was given IV fluid bolus followed by maintenance IV fluids lactic acid has improved -Levophed weaned off -off IV fluids -source appears to be UTI. Urine and blood cultures are negative till now, STATUS POST CEFTRIAXONE -status post stress dose steroids Remains febrile, patient has been carl cultured this morning, WBC trending up -chest x-ray is not show any new infiltrates -holding antibiotics for now, if patient continues to spike fevers and WBC count increase tomorrow will add antibiotic Seizure: Patient has a history of seizures, on p.o. Keppra 500 mg p.o. q.12 hours Continue Keppra IV 500 mg IV q.24 (discuss with pharmacist) EEG negative for any seizure-like activity Essential (primary) hypertension Blood pressures have been labile, will hold metoprolol, hydralazine and amlodipine for now -patient has p.r.n. labetalol DVT prophylaxis: Heparin on hold due to anemia Code status: DNR Disposition: Continues to be in ICU, extremely poor prognosis Subjective Date/time seen: 01/21/24 08:47 Interval history: I saw and examined the patient in ICU. ,still unresponsive to verbal command w/o sedation meds , patient had low-grade fever 99.9, tachycardia, renal function is worse Exam Narrative: General: Intubated and sedated HEENT:? Pupils are equal and reactive to light, patient has positive corneal reflex, sclera is clear, ETT in place, facial puffiness noted Neck:? Supple, right IJ dialysis catheter in place Respiratory:? Coarse breath sounds bilaterally, decreased at bases no wheezing, adequate air entry Cardiac:? S1-S2 normal, regular rate and rhythm, Abdomen:? Soft, nontender, nondistended, hypoactive bowel sounds, old midline surgical scar noted Extremities:? Dry skin, decreased pedal pulses, pitting edema bilateral lower extremities Neuro:? Patient is intubated, off sedation, PERRL, patient withdraws to pain stimulus in bilateral lower extremities, decerebrate posturing of the upper extremities on pain stimuli. Skin:? Dry and flaky skin on lower extremities, skin is warm Psych:? Unable to assess at this time Objective Data Vital Signs Vital Signs: Vital Signs - 24 hr 01/20/24 10:00 01/20/24 10:00 01/20/24 10:56 Temperature 101.5 F H Pulse Rate 106 H 106 H 103 H Respiratory Rate 14 Blood Pressure 111/67 Pulse Oximetry 99 99 Oxygen Delivery Mechanical Ventilation Fraction of Inspired Oxygen 21 01/20/24 09:30 01/20/24 12:00 01/20/24 12:00 Temperature 101.5 F H 100.9 F H Pulse Rate 99 Respiratory Rate 21 H Blood Pressure 108/63 Pulse Oximetry 100 Oxygen Delivery Fraction of Inspired Oxygen 21 01/20/24 12:00 01/20/24 12:00 01/20/24 13:54 Temperature Pulse Rate 99 99 101 H Respiratory Rate 21 H Blood Pressure Pulse Oximetry 99 98 Oxygen Delivery Mechanical Ventilation Mechanical Ventilation Fraction of Inspired Oxygen 21 21 01/20/24 14:00 01/20/24 14:00 01/20/24 16:00 Temperature 100.7 F H 100.7 F H Pulse Rate 101 H 101 H Respiratory Rate 14 Blood Pressure 124/67 Pulse Oximetry 100 Oxygen Delivery Fraction of Inspired Oxygen 01/20/24 16:16 01/20/24 16:00 01/20/24 16:00 Temperature Pulse Rate 104 H 106 H Respiratory Rate Blood Pressure Pulse Oximetry 98 Oxygen Delivery Mechanical Ventilation Fraction of Inspired Oxygen 21 21 01/20/24 16:00 01/20/24 17:00 01/20/24 18:00 Temperature 100.5 F H 100.7 F H Pulse Rate 99 96 Respiratory Rate 15 Blood Pressure 122/75 Pulse Oximetry 100 Oxygen Delivery Fraction of Inspired Oxygen 01/20/24 18:00 01/20/24 16:00 01/20/24 19:58 Temperature 100.5 F H Pulse Rate 97 100 104 H Respiratory Rate 14 14 Blood Pressure 135/69 Pulse Oximetry 100 99 100 Oxygen Delivery Mechanical Ventilation Mechanical Ventilation Fraction of Inspired Oxygen 21 21 01/20/24 20:00 01/20/24 22:00 01/20/24 23:03 Temperature 99.9 F H 99.6 F Pulse Rate 102 H 103 H 102 H Respiratory Rate 18 18 Blood Pressure 147/66 H 158/68 H Pulse Oximetry 100 100 100 Oxygen Delivery Mechanical Ventilation Fraction of Inspired Oxygen 21 01/20/24 20:00 01/20/24 20:00 01/20/24 20:00 Temperature Pulse Rate 101 H 101 H Respiratory Rate 16 Blood Pressure Pulse Oximetry 100 Oxygen Delivery Mechanical Ventilation Fraction of Inspired Oxygen 21 21 01/20/24 22:00 01/21/24 00:00 01/21/24 00:00 Temperature Pulse Rate 103 H 102 H 102 H Respiratory Rate 20 Blood Pressure Pulse Oximetry 100 Oxygen Delivery Mechanical Ventilation Fraction of Inspired Oxygen 21 01/21/24 00:00 01/21/24 00:00 01/21/24 02:00 Temperature 99.7 F H Pulse Rate 102 H 103 H Respiratory Rate 20 Blood Pressure 147/67 H Pulse Oximetry 100 Oxygen Delivery Fraction of Inspired Oxygen 21 01/21/24 02:00 01/21/24 02:11 01/21/24 04:53 Temperature 99.9 F H Pulse Rate 103 H 101 H 103 H Respiratory Rate 21 H Blood Pressure 148/67 H Pulse Oximetry 100 100 100 Oxygen Delivery Mechanical Ventilation Mechanical Ventilation Fraction of Inspired Oxygen 21 21 01/21/24 04:00 01/21/24 04:00 01/21/24 04:00 Temperature Pulse Rate 103 H 103 H Respiratory Rate 18 Blood Pressure Pulse Oximetry 100 Oxygen Delivery Mechanical Ventilation Fraction of Inspired Oxygen 21 21 01/21/24 04:00 01/21/24 07:20 01/21/24 07:20 Temperature 100.2 F H Pulse Rate 103 H 103 H Respiratory Rate 20 Blood Pressure 155/70 H Pulse Oximetry 100 100 100 Oxygen Delivery Mechanical Ventilation Mechanical Ventilation Fraction of Inspired Oxygen 21 21 01/21/24 06:00 01/21/24 06:00 Temperature 100.2 F H Pulse Rate 100 100 Respiratory Rate 15 Blood Pressure 164/71 H Pulse Oximetry 100 Oxygen Delivery Fraction of Inspired Oxygen Intake/Output Intake/Output: Intake & Output 01/18/24 01/19/24 01/20/24 01/21/24 23:59 23:59 23:59 23:59 Intake Total 1425 1492 1892 934 Output Total 4225 375 360 50 Balance -2800 1117 1532 884 Meds/Results Medications: Active Medications Generic Name Dose Route Start Last Admin Trade Name Freq PRN Reason Stop Dose Admin Acetaminophen 650 mg 01/10/24 08:02 01/20/24 16:00 Acetaminophen 325 Mg Tablet FEED TUBE 650 mg Q6H PRN Administration Mild Pain (1-3) or Fever Amlodipine Besylate 10 mg 01/11/24 14:05 01/17/24 08:44 Amlodipine Besylate 10 Mg Tablet FEED TUBE 10 mg DAILY CARMELA Administration Aspirin 325 mg 01/12/24 16:00 01/17/24 08:43 Aspirin 325 Mg Tablet FEED TUBE 325 mg DAILY@0800 CARMELA Administration Atorvastatin Calcium 40 mg 01/13/24 09:00 01/20/24 08:31 Atorvastatin 40 Mg Tablet FEED TUBE 40 mg DAILY CARMELA Administration Dextrose 12.5 gm 01/07/24 13:18 Dextrose 50% 25 Gm/50 Ml Syringe IV PUSH PRN PRN Hypoglycemia Protocol Epoetin Dane-epbx 10,000 units 01/12/24 09:20 01/19/24 08:38 Epoetin Dane-Epbx 10,000 Units/Ml Vial SUB-Q 10,000 units MOWEFR@09 CARMELA Administration Glucagon 1 mg 01/07/24 13:18 Glucagon For Inj 1 Mg Vial IM PRN PRN Hypoglycemia Protocol Glucose 15 gm 01/07/24 13:18 Glucose Oral Gel 15 Gm Of Glucse In 37.5 Gm Tube PO PRN PRN Hypoglycemia Protocol Hydralazine HCl 10 mg 01/18/24 02:20 01/18/24 05:40 Hydralazine 10 Mg Tablet PO Not Given Q6HR CARMELA Dextrose 1,000 mls @ 100 mls/hr 01/07/24 13:18 Dextrose 5% 1,000 Ml IVPB PRN PRN Hypoglycemia Protocol Albumin Human 50 mls @ 999 mls/hr 01/07/24 17:11 01/12/24 10:30 Albutein IVPB 02/06/24 17:10 Infused Q10M PRN Infusion HYPOTENSION Levetiracetam 500 mg in 100 mls @ 400 mls/hr 01/07/24 21:00 01/20/24 20:44 Keppra Iv IVPB Infused Q24H CARMELA Infusion Meropenem 500 mg in 100 mls @ 200 mls/hr 01/20/24 15:00 01/21/24 04:40 IVPB Infused Q12H CARMELA Infusion Micafungin Sodium 100 mg/ 100 mls @ 100 mls/hr 01/20/24 16:00 01/20/24 17:23 Sodium Chloride IVPB Infused Q24H CARMELA Infusion Insulin Aspart 4 - 8 units 01/10/24 07:55 01/21/24 04:16 Insulin Aspart (*Bkc) 100 Units/Ml SUB-Q Not Given Q4H [facility] Protocol Insulin Glargine 70 units 01/21/24 09:00 Insulin Glargine (*Bkc) 100 Units/Ml SUB-Q Q12H CARMELA Labetalol HCl 10 mg 01/18/24 08:37 Labetalol Hcl Inj 100 Mg/20 Ml Vial IV PUSH Q4H PRN Hypertension Metoprolol Tartrate 100 mg 01/16/24 09:00 01/17/24 08:43 Metoprolol Tartrate 50 Mg Tab FEED TUBE 100 mg Q12HR CARMELA Administration Multi-Ingred Cream/Lotion/Oil/Oint 1 applic 01/07/24 21:00 01/20/24 20:31 Mineral Oil/White Petrolatum Ointment EACH EYE 1 applic Q12HR CARMELA Administration Pantoprazole Sodium 40 mg 01/07/24 21:00 01/20/24 20:21 Pantoprazole Sodium Iv 40 Mg Vial IV PUSH 40 mg Q12HR CARMELA Administration Vancomycin HCl 1 each 01/20/24 14:59 Vancomycin For Hemodialysis IVPB PRN PRN Vancomycin Protocol Radiology Results: ITS Impressions Abdomen/Pelvis CT 01/07/24 16:52 IMPRESSION: No acute abdominopelvic process. Specifically, there is no CT evidence of bowel obstruction. No definite evidence of renal injury, noting that low-grade renal injury as can be difficult to detect without contrast. Renal Ultrasound 01/08/24 10:47 IMPRESSION: 1. Normal kidney sizes. No hydronephrosis. Chest/Abdomen/Pelvis CT 01/12/24 15:08 IMPRESSION: Interval enlargement of the liver, when compared with previous examination. Flattening of the inferior vena cava suggesting severe hypovolemia. Interval development of basilar atelectasis and trace bilateral pleural effusions. No additional findings which represents a change from prior examination performed 01/07/2024. Supportive devices are in good position. Redemonstration of multiple stones within the gallbladder which is not distended. Head CT 01/12/24 15:31 IMPRESSION: 1. 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 2. Large distribution of chronic encephalomalacia in the expected distribution of left middle cerebral artery. Abdomen Ultrasound 01/13/24 09:31 IMPRESSION: 1. Cholelithiasis. 2. Normal liver Doppler. Arterial/Peripheral Duplex 01/13/24 09:31 IMPRESSION: 1. Cholelithiasis. 2. Normal liver Doppler. Venous Doppler Study 01/15/24 17:14 IMPRESSION: 1. Deep vein thrombosis involving left common femoral vein. ADDENDUM: 01/15/24 1159 I called this result to Apurva Mclean. Abdomen X-Ray 01/16/24 06:03 Impression: NG tube in satisfactory position. IVC Filter Placement X-Ray 01/20/24 06:18 IMPRESSION: Fluoroscopy used during IVC filter insertion. Chest X-Ray 01/20/24 06:19 Impression: 1: No acute cardiopulmonary disease. Labs Labs: Laboratory Results - last 24 hr 01/20/24 01/20/24 01/20/24 11:07 15:45 15:56 WBC RBC Hgb Hct MCV MCH MCHC RDW Plt Count MPV Immature Gran % (Auto) Neut % (Auto) Lymph % (Auto) [place] % (Auto) Eos % (Auto) Baso % (Auto) Lymph # (Auto) [place] # (Auto) Eos # (Auto) Baso # (Auto) Abs Immat Gran (auto) Absolute Neuts (auto) Absolute Nucleated RBC Nucleated RBC % Puncture Site ABG pH ABG pCO2 ABG pO2 ABG PO2/FiO2 Ratio ABG HCO3 ABG O2 Saturation ABG O2 Content ABG Base Excess A-a Gradient Oxyhemoglobin Carboxyhemoglobin Methemoglobin Reduced Hemoglobin Total Hemoglobin O2 Delivery Device O2 Liters/Min Minute Volume Vent Rate Vent Mode FiO2 Tidal Volume PEEP Peak Inspir Pressure Pressure Support Sodium Potassium Chloride Carbon Dioxide Anion Gap BUN Creatinine Estim Creat Clear Calc Estimated GFR Glucose POC Capillary Glucose 318 H 358 H Lactic Acid Calcium Phosphorus Magnesium Total Bilirubin AST ALT Alkaline Phosphatase Total Protein Albumin Nasal MRSA (PCR) Not detected Random Vancomycin 01/20/24 01/20/24 01/21/24 16:16 20:16 04:10 WBC RBC Hgb Hct MCV MCH MCHC RDW Plt Count MPV Immature Gran % (Auto) Neut % (Auto) Lymph % (Auto) [place] % (Auto) Eos % (Auto) Baso % (Auto) Lymph # (Auto) [place] # (Auto) Eos # (Auto) Baso # (Auto) Abs Immat Gran (auto) Absolute Neuts (auto) Absolute Nucleated RBC Nucleated RBC % Puncture Site ABG pH ABG pCO2 ABG pO2 ABG PO2/FiO2 Ratio ABG HCO3 ABG O2 Saturation ABG O2 Content ABG Base Excess A-a Gradient Oxyhemoglobin Carboxyhemoglobin Methemoglobin Reduced Hemoglobin Total Hemoglobin O2 Delivery Device O2 Liters/Min Minute Volume Vent Rate Vent Mode FiO2 Tidal Volume PEEP Peak Inspir Pressure Pressure Support Sodium Potassium Chloride Carbon Dioxide Anion Gap BUN Creatinine Estim Creat Clear Calc Estimated GFR Glucose POC Capillary Glucose 333 H 377 H Lactic Acid Calcium Phosphorus Magnesium Total Bilirubin AST ALT Alkaline Phosphatase Total Protein Albumin Nasal MRSA (PCR) Random Vancomycin 13.3 01/21/24 01/21/24 04:55 06:23 WBC 12.9 H RBC 2.88 L Hgb 8.5 L Hct 27.9 L MCV 96.9 MCH 29.5 MCHC 30.5 L RDW 17.6 H Plt Count 390 H MPV 12.5 H Immature Gran % (Auto) 1.2 H Neut % (Auto) 84.2 H Lymph % (Auto) 8.5 L [place] % (Auto) 4.0 Eos % (Auto) 1.6 Baso % (Auto) 0.5 Lymph # (Auto) 1.10 [place] # (Auto) 0.5 Eos # (Auto) 0.2 Baso # (Auto) 0.1 Abs Immat Gran (auto) 0.16 H Absolute Neuts (auto) 10.9 H Absolute Nucleated RBC 0.060 H Nucleated RBC % 0.5 H Puncture Site Left brachial ABG pH 7.451 H ABG pCO2 34.5 L ABG pO2 82.4 ABG PO2/FiO2 Ratio 3.92 ABG HCO3 23.5 ABG O2 Saturation 96.6 ABG O2 Content 12.3 L ABG Base Excess -0.2 A-a Gradient 26.0 Oxyhemoglobin 95.3 Carboxyhemoglobin 0.6 Methemoglobin 0.4 Reduced Hemoglobin 3.7 Total Hemoglobin 9.1 L O2 Delivery Device Ventilator O2 Liters/Min Not Reportable Minute Volume 5.9 Vent Rate Not Reportable Vent Mode Asv FiO2 21 Tidal Volume Not Reportable PEEP 5 Peak Inspir Pressure Not Reportable Pressure Support Not Reportable Sodium 139 Potassium 4.1 Chloride 103 Carbon Dioxide 24 Anion Gap 12 BUN 101 H D Creatinine 5.10 H Estim Creat Clear Calc 10 Estimated GFR 9 L Glucose 393 H POC Capillary Glucose Lactic Acid 1.3 Calcium 8.9 Phosphorus 3.9 Magnesium 2.5 H Total Bilirubin 0.3 AST 35 ALT 26 Alkaline Phosphatase 110 Total Protein 7.0 Albumin 3.3 L Nasal MRSA (PCR) Random Vancomycin 23.2 H
--- NOTE | 2024-01-21 09:51 | P.PNNP_ITS ---
Progress Note: A&P Assessment and Plan (1) Acute kidney failure: Code(s): N17.9 - Acute kidney failure, unspecified Status: Acute Assessment and Plan: * baseline creatinine not known * reportedly has some underlying renal insufficiency/CKD per family * still awaiting outside records * evaluation to date noted: * CT of abd/pelvis and renal ultrasound negative for obstruction * urine eosinophils negative * CPK normal * urine electrolytes non-prerenal * UA suggestive of infection * proteinuria noted complicated by severe acidosis and hyperkalemia on admission * etiology likely multifactorial: * infection/sepsis * hemodynamic instability/shock * SRINIVAS-I + HCTZ use prior to admission * possible prerenal factors * metformin use prior to admission * continued BP medications prior to admission * no improvement in mental status with dialytic interventions * stable electrolytes but declining urine output noted * holding HD for now (2) Septic shock: Code(s): A41.9 - Sepsis, unspecified organism; R65.21 - Severe sepsis with septic shock Status: Resolved Assessment and Plan: * resolved * initially normotensive on presentation * however, worsening hypotension in the ER * s/p aggressive IVF resuscitation * presumed source = aspiration pneumonia + UTI * blood and urine cultures negative -- still with on/off fevers * repeat cultures noted * on antibiotics * off pressors * follow hemodynamics (3) Acute respiratory failure: Code(s): J96.00 - Acute respiratory failure, unspecified whether with hypoxia or hypercap [place] Status: Acute Assessment and Plan: * due to AMS + emesis and concerns for aspiration and inability to protect airway * intubated and on mechanical ventilation * continue ventilator support - off sedation * weaning as tolerated but mentation is still an issue (4) Encephalopathy: Code(s): G93.40 - Encephalopathy, unspecified Status: Acute Assessment and Plan: * as noted by presentation of altered mental status, delirium, and confusion * CT of brain shows several strokes * TSH and ammonia levels noted * HD did not help the mental status * still unresponsive (5) Stroke: Code(s): I63.9 - Cerebral infarction, unspecified Status: Acute Assessment and Plan: * as noted by repeat CT of head on 01/11: * Extensive bilateral acute infarcts in the expected distributions of the bilateral middle cerebral arteries. * presumably secondary to hypotension * Echo did not show any thrombus or ASD * remains unresponsive at this time (6) Anemia: Code(s): D64.9 - Anemia, unspecified Status: Acute Assessment and Plan: * noted drop in H/H by labs on 01/16 * was on heparin gtt for left LE DVT (but off now) * PRBC transfusion per protocol * ALICE with dialysis * follow trend of H/H (7) Deep vein thrombosis of left lower extremity: Code(s): I82.402 - Acute embolism and thrombosis of unspecified deep veins of left lower extremity Status: Acute Assessment and Plan: * as noted by LE dopplers * s/p IVC filter placement on 01/18/24 (8) Insulin dependent diabetes mellitus: Status: Chronic Assessment and Plan: * follow accu-checks * 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 Subjective Date/time seen: 01/21/24 09:51 Interval history: Follow-up for acute kidney injury/acute renal failure (on chronic kidney disease?) No significant change - remains intubated and on mechanical ventilation but unresponsive -- does not open eyes or follow commands despite being off sedation (since 01/09/24); fevers/temperatures seem to be doing somewhat better and re boo hemodynamically stable; results of family meeting yesterday noted. Exam Narrative: General: somewhat ill appearing female intubated and on mechanical ventilation Heart: normal S1 and S2; no rub Lungs: coarse breath sounds bilaterally Abdomen: soft, nontender, nondistended, positive bowel sounds Extremities: no cyanosis or clubbing; no edema Skin: warm and intact Objective Data Vital Signs Vital Signs: Vital Signs Temp Pulse Resp BP Pulse Ox O2 Del Method FiO2 01/21/24 07:20 103 H 100 Mechanical Ventilation 01/21/24 06:00 100.2 F H 100 15 164/71 H 100 01/21/24 04:53 103 H 100 Mechanical Ventilation 01/21/24 04:00 100.2 F H 103 H 20 155/70 H 100 01/21/24 04:00 103 H 18 100 Mechanical Ventilation 01/21/24 04:00 103 H 01/21/24 02:11 101 H 100 Mechanical Ventilation 01/21/24 02:00 99.9 F H 103 H 21 H 148/67 H 100 01/21/24 02:00 103 H 01/21/24 00:00 99.7 F H 102 H 20 147/67 H 100 01/21/24 00:00 21 01/21/24 00:00 102 H 20 100 Mechanical Ventilation 21 01/21/24 00:00 102 H 01/20/24 22:00 103 H 01/20/24 20:00 21 01/20/24 20:00 101 H 16 100 Mechanical Ventilation 21 01/20/24 20:00 101 H 01/20/24 23:03 102 H 100 Mechanical Ventilation 21 01/20/24 22:00 99.6 F 103 H 18 158/68 H 100 01/20/24 20:00 99.9 F H 102 H 18 147/66 H 100 01/20/24 19:58 104 H 100 Mechanical Ventilation 21 01/20/24 16:00 100 14 99 Mechanical Ventilation 21 01/20/24 18:00 100.5 F H 97 14 135/69 100 01/20/24 18:00 96 01/20/24 17:00 100.7 F H 01/20/24 16:00 100.5 F H 99 15 122/75 100 01/20/24 16:00 21 01/20/24 16:00 106 H 01/20/24 16:16 104 H 98 Mechanical Ventilation 21 01/20/24 16:00 100.7 F H 01/20/24 14:00 100.7 F H 101 H 14 124/67 100 01/20/24 14:00 101 H 01/20/24 13:54 101 H 98 Mechanical Ventilation 01/20/24 12:00 99 21 H 99 Mechanical Ventilation 21 01/20/24 12:00 99 01/20/24 12:00 100.9 F H 99 21 H 108/63 100 01/20/24 12:00 21 01/20/24 10:56 103 H 99 Mechanical Ventilation 21 Intake/Output Intake/Output: Intake & Output 01/18/24 01/19/24 01/20/24 01/21/24 23:59 23:59 23:59 23:59 Intake Total 1425 1492 1892 934 Output Total 4225 375 360 50 Balance -2800 1117 1532 884 Meds/Results Medications: Active Medications Generic Name Dose Route Start Last Admin Trade Name Freq PRN Reason Stop Dose Admin Acetaminophen 650 mg 01/10/24 08:02 01/20/24 16:00 Acetaminophen 325 Mg Tablet FEED TUBE 650 mg Q6H PRN Administration Mild Pain (1-3) or Fever Amlodipine Besylate 10 mg 01/11/24 14:05 01/17/24 08:44 Amlodipine Besylate 10 Mg Tablet FEED TUBE 10 mg DAILY CARMELA Administration Aspirin 325 mg 01/12/24 16:00 01/17/24 08:43 Aspirin 325 Mg Tablet FEED TUBE 325 mg DAILY@0800 CARMELA Administration Atorvastatin Calcium 40 mg 01/13/24 09:00 01/21/24 09:53 Atorvastatin 40 Mg Tablet FEED TUBE 40 mg DAILY CARMELA Administration Dextrose 12.5 gm 01/07/24 13:18 Dextrose 50% 25 Gm/50 Ml Syringe IV PUSH PRN PRN Hypoglycemia Protocol Epoetin Dane-epbx 10,000 units 01/12/24 09:20 01/19/24 08:38 Epoetin Dane-Epbx 10,000 Units/Ml Vial SUB-Q 10,000 units MOWEFR@09 CARMELA Administration Glucagon 1 mg 01/07/24 13:18 Glucagon For Inj 1 Mg Vial IM PRN PRN Hypoglycemia Protocol Glucose 15 gm 01/07/24 13:18 Glucose Oral Gel 15 Gm Of Glucse In 37.5 Gm Tube PO PRN PRN Hypoglycemia Protocol Hydralazine HCl 10 mg 01/18/24 02:20 01/18/24 05:40 Hydralazine 10 Mg Tablet PO Not Given Q6HR CARMELA Dextrose 1,000 mls @ 100 mls/hr 01/07/24 13:18 Dextrose 5% 1,000 Ml IVPB PRN PRN Hypoglycemia Protocol Albumin Human 50 mls @ 999 mls/hr 01/07/24 17:11 01/12/24 10:30 Albutein IVPB 02/06/24 17:10 Infused Q10M PRN Infusion HYPOTENSION Levetiracetam 500 mg in 100 mls @ 400 mls/hr 01/07/24 21:00 01/20/24 20:44 Keppra Iv IVPB Infused Q24H CARMELA Infusion Meropenem 500 mg in 100 mls @ 200 mls/hr 01/20/24 15:00 01/21/24 04:40 IVPB Infused Q12H CARMELA Infusion Micafungin Sodium 100 mg/ 100 mls @ 100 mls/hr 01/20/24 16:00 01/20/24 17:23 Sodium Chloride IVPB Infused Q24H CARMELA Infusion Insulin Aspart 4 - 8 units 01/10/24 07:55 01/21/24 09:54 Insulin Aspart (*Bkc) 100 Units/Ml SUB-Q 8 units Q4H CRAMELA Administration Protocol Insulin Glargine 70 units 01/21/24 09:00 01/21/24 09:53 Insulin Glargine (*Bkc) 100 Units/Ml SUB-Q 70 units Q12H CARMELA Administration Labetalol HCl 10 mg 01/18/24 08:37 Labetalol Hcl Inj 100 Mg/20 Ml Vial IV PUSH Q4H PRN Hypertension Metoprolol Tartrate 100 mg 01/16/24 09:00 01/17/24 08:43 Metoprolol Tartrate 50 Mg Tab FEED TUBE 100 mg Q12HR CARMELA Administration Multi-Ingred Cream/Lotion/Oil/Oint 1 applic 01/07/24 21:00 01/21/24 10:03 Mineral Oil/White Petrolatum Ointment EACH EYE 1 applic Q12HR CARMELA Administration Pantoprazole Sodium 40 mg 01/07/24 21:00 01/21/24 09:53 Pantoprazole Sodium Iv 40 Mg Vial IV PUSH 40 mg Q12HR CARMELA Administration Vancomycin HCl 1 each 01/20/24 14:59 Vancomycin For Hemodialysis IVPB PRN PRN Vancomycin Protocol Radiology Results: ITS Impressions Abdomen/Pelvis CT 01/07/24 16:52 IMPRESSION: No acute abdominopelvic process. Specifically, there is no CT evidence of bowel obstruction. No definite evidence of renal injury, noting that low-grade renal injury as can be difficult to detect without contrast. Renal Ultrasound 01/08/24 10:47 IMPRESSION: 1. Normal kidney sizes. No hydronephrosis. Chest/Abdomen/Pelvis CT 01/12/24 15:08 IMPRESSION: Interval enlargement of the liver, when compared with previous examination. Flattening of the inferior vena cava suggesting severe hypovolemia. Interval development of basilar atelectasis and trace bilateral pleural effusions. No additional findings which represents a change from prior examination performed 01/07/2024. Supportive devices are in good position. Redemonstration of multiple stones within the gallbladder which is not distended. Head CT 01/12/24 15:31 IMPRESSION: 1. 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 2. Large distribution of chronic encephalomalacia in the expected distribution of left middle cerebral artery. Abdomen Ultrasound 01/13/24 09:31 IMPRESSION: 1. Cholelithiasis. 2. Normal liver Doppler. Arterial/Peripheral Duplex 01/13/24 09:31 IMPRESSION: 1. Cholelithiasis. 2. Normal liver Doppler. Venous Doppler Study 01/15/24 17:14 IMPRESSION: 1. Deep vein thrombosis involving left common femoral vein. ADDENDUM: 01/15/24 [id number] I called this result to Apurva Mclean. Abdomen X-Ray 01/16/24 06:03 Impression: NG tube in satisfactory position. IVC Filter Placement X-Ray 01/20/24 06:18 IMPRESSION: Fluoroscopy used during IVC filter insertion. Chest X-Ray 01/20/24 06:19 Impression: 1: No acute cardiopulmonary disease. Labs Labs: Laboratory Tests 01/21/24 06:23 01/21/24 06:23 Lactic Acid 1.3 Calcium 8.9 Phosphorus 3.9 Magnesium 2.5 H Total Bilirubin 0.3 AST 35 ALT 26 Alkaline Phosphatase 110 Total Protein 7.0 Albumin 3.3 L Random Vancomycin 23.2 H Microbiology 01/19/24 20:21 Sputum Sputum Culture - Preliminary Yeast Present 01/19/24 08:11 Blood Blood Culture - Preliminary Gram positive cocci cluster is 01/19/24 11:37 Urine [place] Urine Culture - Final Tatiana albicans 01/19/24 08:41 Blood Blood Culture - Preliminary
[2024-01-21] MEDS: PANTOPRAZOLE SODIUM IV 40 MG VIAL IV PUSH ×2 (09:53→20:21)
[2024-01-21] MEDS: ATORVASTATIN 40 MG TABLET FEED TUBE (09:53)
[2024-01-21] MEDS: INSULIN GLARGINE (*BKC) 100 UNITS/ML 70 UNITS SUB-Q ×2 (09:53→20:21)
[2024-01-21] MEDS: MINERAL OIL/WHITE PETROLATUM OINTMENT 1 APPLIC EACH EYE ×2 (10:03→20:21)
[2024-01-21 11:59] LABS: Glucose Point of Care 390 mg/dl (65-105)
[2024-01-21 12:23] LABS: Glucose Point of Care 378 mg/dl (65-105)
[2024-01-21] MEDS: MICAFUNGIN SODIUM 100 MG in SODIUM CHLORIDE 0.9% IV 100 ML IVPB (16:15)
[2024-01-21 16:25] LABS: Glucose Point of Care 319 mg/dl (65-105)
[2024-01-21] MEDS: LABETALOL HCL INJ 100 MG/20 ML VIAL 10 MG IV PUSH ×2 (16:46→20:32)
[2024-01-21] MEDS: levETIRAcetam 500MG/NACL 100ML 500 MG/100 ML BAG 400 MG IVPB (20:21)
[2024-01-21 21:19] LABS: Glucose Point of Care 309 mg/dl (65-105)
[2024-01-22] VITALS (29 sets, daily range): BP systolic 145–179; BP diastolic 62–78; PULSE 80–100; RESP 12–21; TEMP 37–37.6; O2SAT 95–100
[2024-01-22] MEDS: INSULIN ASPART (*BKC) 100 UNITS/ML SUB-Q ×7 (00:17→23:57)
[2024-01-22 00:22] LABS: Glucose Point of Care 280 mg/dl (65-105)
[2024-01-22] MEDS: LABETALOL HCL INJ 100 MG/20 ML VIAL 10 MG IV PUSH ×4 (01:33→19:28)
[2024-01-22] MEDS: MEROPENEM 500 MG/NS 100 ML 500 MG/100 ML BAG 200 MG IVPB ×2 (02:19→19:28)
[2024-01-22 04:11] LABS: Basophils Absolute Auto 0.1 K/mm3 (0.0-0.1); Basophils Percent Auto 0.7 % (0.2-1.2); Eosinophils Absolute Auto 0.2 K/mm3 (0-0.3); Eosinophils Percent Auto 1.5 % (0-4.4); Hematocrit 30.8 % (37.0-47.0); Hemoglobin 8.5 g/dL (12.0-15.0); Immature Granulocyte Absolute 0.12 K/mm3 (0.00-0.031); Immature Granulocyte Percent A 1.1 % (0-0.5); Lymphocytes Absolute Auto 1.12 K/mm3 (0.9-3.2); Lymphocytes Percent Auto 10.2 % (18.3-44.2); Mean Corpuscular HGB Conc 27.6 g/dl (32-36); Mean Corpuscular Volume 105.1 fl (80-100); Mean Platelet Volume 12.2 fl (7.4-10.4); Monocytes Absolute Auto 0.6 K/mm3 (0.1-0.6); Monocytes Percent Auto 5.2 % (2.6-8.5); Neutrophils Absolute Auto 8.9 K/mm3 (1.3-6.7); Neutrophils Percent Auto 81.3 % (45.5-73.1); Platelet Count Result 408 k/mm3 (150-375); Red Blood Count 2.93 M/mm3 (4.2-5.4); Red Cell Distribution Width 17.9 % (11.5-14.5); White Blood Count 10.9 K/mm3 (4.5-10.0)
[2024-01-22 04:32] LABS: Vancomycin Random 20.1 ug/mL (10-20)
[2024-01-22 04:34] LABS: Platelet Estimate Increased (Adequate)
[2024-01-22 04:35] LABS: Large Platelets Present
[2024-01-22 04:37] LABS: Anisocytosis 1+; Hypochromasia 1+; Poikilocytosis 1+
[2024-01-22 04:38] LABS: Burr Cells 1+; Schistocytes None Seen
[2024-01-22 04:41] LABS: Alanine Aminotransferase 25 U/L (6-35); Albumin Level 3.2 g/dL (3.5-5.1); Alkaline Phosphatase 114 U/L (38-126); Anion Gap 14 mmol/L (4-12); Aspartate Amino Transferase 31 U/L (14-36); Bilirubin,Total 0.5 mg/dL (0.2-1.3); Blood Urea Nitrogen 120 mg/dL (7-17); Calcium 9.1 mg/dL (8.4-10.2); Carbon Dioxide 22 mmol/L (22-30); Chloride 102 mmol/L (98-107); Estimated CRCL calculation 10 ml/min; Estimated Glomerular Filt Rate 7; Glucose 373 mg/dL (65-110); Magnesium 2.8 mg/dL (1.6-2.3); Phosphorus 4.2 mg/dL (2.5-4.5); Potassium 4.2 mmol/L (3.4-5.0); Sodium 138 mmol/L (137-145)
[2024-01-22] MEDS: PANTOPRAZOLE SODIUM IV 40 MG VIAL IV PUSH ×2 (08:22→20:34)
[2024-01-22] MEDS: MINERAL OIL/WHITE PETROLATUM OINTMENT 1 APPLIC EACH EYE ×2 (08:22→20:34)
[2024-01-22] MEDS: INSULIN GLARGINE (*BKC) 100 UNITS/ML 85 UNITS SUB-Q ×2 (08:22→20:32)
[2024-01-22] MEDS: ATORVASTATIN 40 MG TABLET FEED TUBE (08:22)
[2024-01-22 08:33] LABS: Glucose Point of Care 377 mg/dl (65-105)
--- NOTE | 2024-01-22 08:39 | WPDINTPN ---
Progress Note: A&P Assessment and Plan (1) Septic shock: Code(s): A41.9 - Sepsis, unspecified organism; R65.21 - Severe sepsis with septic shock Status: Acute Assessment and Plan: RESOLVED Patient hypotensive on presentation Patient was given IV fluid bolus followed by maintenance IV fluids -lactic acid has improved -Levophed weaned off -off IV fluids -source appears to be UTI. Urine and blood cultures are negative till now, STATUS POST CEFTRIAXONE -status post stress dose steroids - 01/10 continues to have fever although other markers of infection are improved as normal WBC. 01/10: Repeat blood cultures are negative x2 Clark catheter change 01/11 Minimal respiratory secretions, sputum cultures growing yeast which is likely a colonization Change Rocephin to cefepime and vancomycin 01/14: Patient continues to have low-grade fever but overall fever curve is down. White count is normal. CT scan of chest and pelvis does not show any area suggestive of infection. Clark catheter was changed. Procalcitonin level is also on the lower side. Continue cefepime but will discontinue vancomycin at this time. Cultures are negative till now. -lipase was within normal limits -01/15/2024: lower extremity venous Dopplers: Left common femoral vein DVT -01/14: patient was started on heparin infusion OFF all abx 01/18: Remains febrile, patient has been carl cultured this morning, WBC trending up -chest x-ray is not show any new infiltrates -holding antibiotics for now, if patient continues to spike fevers and WBC count increase tomorrow will add antibiotics 01/18: Blood culture growing Gram-positive cocci in clusters 1/2 bottles 01/18: Urine cultures growing Tatiana albicans 01/18: Sputum cultures growing Yeast 01/19: Patient remained febrile with T-max of 101.3. Patient was started on vancomycin, meropenem and micafungin (01/19) 01/21: Fever curve improving since starting antibiotics, continue antibiotics and antifungals as above (2) Stroke: Code(s): I63.9 - Cerebral infarction, unspecified Status: Acute Assessment and Plan: Patient presented with altered mental status but at that time patient was respiratory failure acute renal failure acidosis and sepsis. CT scan on presentation showed only old stroke and encephalomalacia Since then patient has not woken up despite holding sedation for multiple days and dialysis. 01/[address] was done which showed. 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 These are likely secondary to hypotension Echo did not show any thrombus or ASD Continue aspirin and statin Neurology following EEG 01/12 - This is an abnormal EEG due to presence of moderate diffuse background slowing suggested generalized cephalopathy. No significant change in neurological status (3) Encephalopathy: Code(s): G93.40 - Encephalopathy, unspecified Status: Acute Assessment and Plan: Patient presented with encephalopathy, altered mental status, delirium, confusion -most likely related to uremia, infection, severe acidosis and baseline flow malacia from past stroke TSH and ammonia normal Patient has been off sedation since 01/09/2024. Still not responsive.. Will continue hold sedatives. EEG as above Patient was dialyzed 01/11 to help with drug removal. Minimal improved Encephalopathy likely secondary to strokes. See above. Neurology following -patient has been off sedation since 01/09/2024, has not woken up -01/16: Ammonia levels are normal 01/11: Repeat CT scan of the brain IMPRESSION: 1. 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 2. Large distribution of chronic encephalomalacia in the expected distribution of left middle cerebral artery. 01/06: CT brain on admission IMPRESSION: 1. No acute intracranial process. 2. 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 3. Additional more diffuse likely age-related mild to moderate diffuse volume loss and mild scattered white matter hypoattenuation consistent with chronic small vessel ischemic disease. (4) Acute respiratory failure: Code(s): J96.00 - Acute respiratory failure, unspecified whether with hypoxia or hypercapnia Status: Acute Assessment and Plan: Patient had an episode of emesis in the ER, given her altered mental status encephalopathy, risk of aspiration with impending respiratory failure patient was intubated on 01/06/2025 -chest x-ray and ABG reviewed -patient currently on ASV mode of ventilation, peep of 5, 21% FiO2 and tolerating -sedation is on hold since 01/09/2024 -weaning will depend on improvement in mental status. (5) Acute kidney failure: Code(s): N17.9 - Acute kidney failure, unspecified Status: Acute Assessment and Plan: On chronic kidney injury, unknown cause, CT of the abdomen and pelvis did not show any hydronephrosis or urinary obstruction -significant lactic acidosis and metabolic acidosis -patient has a history of diabetes, hypertension which is likely the cause of chronic kidney disease -patient on lisinopril hydrochlorothiazide and metformin at home -patient was given a total of 3 L IV fluid bolus, 1 L in the ER and 2 L in the ICU -sodium bicarb IV pushes x4 in the ICU -patient was started on sodium bicarb infusion after discussing with Nephrology, which her was discontinued once hemodialysis was started -patient was started on hemodialysis and was dialyzed x 3 days -patient continues to have decent urine output - 01/11 patient was dialyzed again 1 L fluid was removed -continue to monitor urine output, electrolytes and renal function -01/16: worsening creatinine, increased edema, decreased urine output. Discussed with Nephrology, patient will dialyzed -continues to have decreased urine output -dialysis per Nephrology (6) Metabolic acidosis: Code(s): E87.20 - Acidosis, unspecified Status: Acute Assessment and Plan: RESOLVED Patient presented with significant metabolic acidosis and lactic acidosis. This could be combination of septic shock, acute kidney injury but also a possibility of metformin toxicity Patient received hemodialysis and IV bicarb. Acidosis has resolved. Further dialysis per Nephrology (7) Diastolic dysfunction: Code(s): I51.89 - Other ill-defined heart diseases Status: Acute Assessment and Plan: Echo 01/11 Summary 1. Left ventricular systolic function is normal, estimated at 60-65%. 2. There is moderately increased left ventricular wall thickness. 3. Intact interatrial septum visualized by agitated saline imaging. 4. There is mild aortic valve calcification. 5. There is mild aortic valve stenosis with a peak velocity of 190 cm/s,mean gradient of 8 mmHg, and aortic valve area of 1.8 cm2. 6. There is mild tricuspid valve regurgitation. 7. Mild pulmonary hypertension, estimated pulmonary arterial systolicpressure is 46 mmHg. (8) Insulin dependent diabetes mellitus: Status: Chronic Assessment and Plan: Continue sliding scale insulin Accu-Cheks Lantus was increased and will dose b.i.d. (hold a.m. Lantus dose as patient is NPO for the procedure) (9) Right hemiparesis: Code(s): G81.91 - Hemiplegia, unspecified affecting right dominant side Status: Acute Assessment and Plan: History of left-sided cerebral hemisphere and CVA, residual mild aphasia and right-sided weakness (10) Seizures: Code(s): R56.9 - Unspecified convulsions Status: Acute Assessment and Plan: Patient has a history of seizures, on p.o. Keppra 500 mg p.o. q.12 hours Continue Keppra IV 500 mg IV q.24 (discuss with pharmacist) EEG negative for any seizure-like activity (11) Hypertension: Code(s): I10 - Essential (primary) hypertension Status: Acute Assessment and Plan: Blood pressures have been labile, will hold metoprolol, hydralazine and amlodipine for now -patient has p.r.n. labetalol -01/21: patient has been requiring multiple doses of p.r.n. labetalol as blood pressures are elevated, will restart amlodipine (12) Anemia: Code(s): D64.9 - Anemia, unspecified Status: Acute Assessment and Plan: 01/16: Patient has been on heparin infusion for DVT in the right common femoral vein. Dropped hemoglobin this morning to 6.7 from 7.8. - heparin infusion Discontinued -stool for Hemoccult was Negative -01/17: IVC filter placement by surgery Plan DVT prophylaxis: Hold heparin infusion due to anemia, continue SCDs Stress ulcer prophylaxis: Protonix IV q.12 hours Nutrition: Continue tube feeds Code Status: DNR Critical Care Time Spent: 32 minutes 01/20/2024: Discussed with sons Hakan and June, Danuta in the conference room this afternoon. I discussed with them at length regarding patient's medical condition and problems from the time she came to the hospital. They are aware that she has had multiple strokes, encephalopathy and not waking up since her sedation has been turned off on 01/09/2024. She is in renal failure requiring intermittent dialysis, has a DVT with IVC filters, anemia. The and the sons stated that they do not want the patient to get tracheostomy or the PEG tube. And they want to make her comfortable but requested if he could wait for 1 week since patient's sister was very close to her will be traveling from [place] to see her. They will keep us posted on her arrival. In the meantime patient remains DNR which was reiterated and acceptable to the and the sons. Bedside RN Anali and wound care coordinator Ericka were present during the family meeting. 01/17: Discuss with patient's son, Hakan, updated with patient's condition and plan of care. Family meeting on 01/20/2024 for further plan of care for the patient. Due to a high probability of clinically significant, life threatening deterioration, the patient required my highest level of preparedness to intervene emergently and I personally spent this critical care time directly and personally managing the patient. This critical care time included obtaining a history; examining the patient; pulse oximetry; ordering and review of studies; arranging urgent treatment with development of a management plan; evaluation of patient's response to treatment; frequent reassessment; and discussions with other providers. It was exclusive of separately billable procedures and treating other patients and teaching time. Please see Assessment and Plan section and the rest of the note for further information on patient assessment and treatment This dictation may have been done utilizing a voice recognition system. Attempts have been made to correct errors. However, there may be uncorrected grammatical, spelling, and recognitions errors present. Subjective Date/time seen: 01/22/24 08:39 Interval history: Reason for consult: Altered mental status, acute respiratory failure, severe metabolic acidosis, multiple strokes, DVT 01/22/2024: Patient seen and examined the ICU, remains intubated on ASV mode of ventilation, peep of 5, 21% FiO2 with very good O2 sats. Sedation has been off since 01/09/2024. Patient does not open her eyes or follows simple commands, does withdraw to pain with decerebrate posturing on the upper extremities and withdraws to pain on lower extremities. Urine output has been low, WBC count trending down. Patient's fever curve trending down, T-max 99.5? overnight Review of Systems Review of Systems: ROS unobtainable: Yes unobtainable due to endotracheal tube, unobtainable due to medical condition and unobtainable due to mental status Exam Narrative: General: Intubated and sedated HEENT:? Pupils are equal and reactive to light, patient has positive corneal reflex, sclera is clear, ETT in place, facial puffiness noted Neck:? Supple, right IJ dialysis catheter in place Respiratory:? Coarse breath sounds bilaterally, decreased at bases no wheezing, adequate air entry Cardiac:? S1-S2 normal, regular rate and rhythm, Abdomen:? Soft, nontender, nondistended, hypoactive bowel sounds, old midline surgical scar noted Extremities:? Dry skin, decreased pedal pulses, pitting edema bilateral upper and lower extremities Neuro:? Patient is intubated, off sedation, PERRL, patient withdraws to pain stimulus in bilateral lower extremities, decerebrate posturing of the upper extremities on pain stimuli. Skin:? Dry and flaky skin on lower extremities, skin is warm Psych:? Unable to assess at this time Objective Data Vital Signs Vital Signs: Vital Signs - 24 hr 01/21/24 10:56 01/21/24 10:00 01/21/24 12:00 Temperature Pulse Rate 101 H 101 H 101 H Respiratory Rate Blood Pressure Pulse Oximetry 100 Oxygen Delivery Mechanical Ventilation Fraction of Inspired Oxygen 21 01/21/24 12:00 01/21/24 14:00 01/21/24 14:00 Temperature 100.6 F H Pulse Rate 105 H 106 H Respiratory Rate 14 17 Blood Pressure 134/69 Pulse Oximetry 99 100 Oxygen Delivery Mechanical Ventilation Fraction of Inspired Oxygen 21 01/21/24 10:00 01/21/24 12:00 01/21/24 12:00 Temperature 100.4 F H 100.4 F H Pulse Rate 102 H 102 H Respiratory Rate 11 L 14 Blood Pressure 151/71 H 144/70 H Pulse Oximetry 100 100 Oxygen Delivery Fraction of Inspired Oxygen 21 01/21/24 13:30 01/21/24 16:46 01/21/24 16:00 Temperature 100.1 F H Pulse Rate 104 H 106 H 105 H Respiratory Rate 18 Blood Pressure 161/79 H Pulse Oximetry 99 100 Oxygen Delivery Mechanical Ventilation Fraction of Inspired Oxygen 21 01/21/24 16:47 01/21/24 16:00 01/21/24 16:00 Temperature 99.9 F H Pulse Rate 107 H Respiratory Rate 18 Blood Pressure 187/77 H Pulse Oximetry 100 Oxygen Delivery Mechanical Ventilation Fraction of Inspired Oxygen 21 21 01/21/24 18:00 01/21/24 16:00 01/21/24 18:00 Temperature 100.1 F H Pulse Rate 93 112 H 92 Respiratory Rate 20 Blood Pressure 161/70 H Pulse Oximetry 100 Oxygen Delivery Fraction of Inspired Oxygen 01/21/24 16:40 01/21/24 19:23 01/21/24 20:00 Temperature 99.8 F H Pulse Rate 106 H 94 94 Respiratory Rate 12 Blood Pressure 170/76 H Pulse Oximetry 100 100 100 Oxygen Delivery Mechanical Ventilation Mechanical Ventilation Fraction of Inspired Oxygen 21 21 01/21/24 20:32 01/21/24 20:00 01/21/24 20:00 Temperature Pulse Rate 95 94 Respiratory Rate 13 Blood Pressure Pulse Oximetry 100 Oxygen Delivery Mechanical Ventilation Fraction of Inspired Oxygen 21 01/21/24 20:00 01/21/24 22:00 01/21/24 22:00 Temperature 99.3 F Pulse Rate 85 85 Respiratory Rate 13 Blood Pressure 154/67 H Pulse Oximetry 100 Oxygen Delivery Fraction of Inspired Oxygen 21 01/21/24 23:08 01/22/24 00:00 01/22/24 00:00 Temperature Pulse Rate 86 87 Respiratory Rate 13 Blood Pressure Pulse Oximetry 100 100 Oxygen Delivery Mechanical Ventilation Mechanical Ventilation Fraction of Inspired Oxygen 21 21 01/22/24 00:00 01/22/24 00:00 01/22/24 01:30 Temperature 99.5 F 99.1 F Pulse Rate 87 90 Respiratory Rate 13 13 Blood Pressure 147/70 H 176/74 H Pulse Oximetry 100 100 Oxygen Delivery Fraction of Inspired Oxygen 21 01/22/24 01:33 01/22/24 02:00 01/22/24 02:00 Temperature 98.9 F Pulse Rate 91 81 81 Respiratory Rate 13 Blood Pressure 157/68 H Pulse Oximetry 100 Oxygen Delivery Fraction of Inspired Oxygen 01/22/24 02:12 01/22/24 04:00 01/22/24 04:00 Temperature Pulse Rate 80 85 Respiratory Rate 13 Blood Pressure Pulse Oximetry 100 100 Oxygen Delivery Mechanical Ventilation Mechanical Ventilation Fraction of Inspired Oxygen 21 21 01/22/24 04:00 01/22/24 04:00 01/22/24 05:30 Temperature 98.6 F 98.6 F Pulse Rate 85 87 Respiratory Rate 13 13 Blood Pressure 179/78 H 177/75 H Pulse Oximetry 100 100 Oxygen Delivery Fraction of Inspired Oxygen 21 01/22/24 05:47 01/22/24 05:57 01/22/24 06:00 Temperature Pulse Rate 88 83 83 Respiratory Rate Blood Pressure Pulse Oximetry 100 Oxygen Delivery Mechanical Ventilation Fraction of Inspired Oxygen 21 01/22/24 06:00 01/22/24 08:00 01/22/24 08:00 Temperature 98.7 F 98.7 F Pulse Rate 83 86 Respiratory Rate 13 14 Blood Pressure 162/76 H 178/68 H Pulse Oximetry 100 100 Oxygen Delivery Fraction of Inspired Oxygen 01/22/24 08:00 Temperature Pulse Rate 87 Respiratory Rate Blood Pressure Pulse Oximetry Oxygen Delivery Fraction of Inspired Oxygen Intake/Output Intake/Output: Intake & Output 01/19/24 01/20/24 01/21/24 01/22/24 23:59 23:59 23:59 23:59 Intake Total 1492 1892 1853 746 Output Total 375 360 80 25 Balance 1117 1532 1773 721 Meds/Results Medications: Active Medications Generic Name Dose Route Start Last Admin Trade Name Freq PRN Reason Stop Dose Admin Acetaminophen 650 mg 01/10/24 08:02 01/20/24 16:00 Acetaminophen 325 Mg Tablet FEED TUBE 650 mg Q6H PRN Administration Mild Pain (1-3) or Fever Amlodipine Besylate 10 mg 01/11/24 14:05 01/17/24 08:44 Amlodipine Besylate 10 Mg Tablet FEED TUBE 10 mg DAILY CARMELA Administration Aspirin 325 mg 01/12/24 16:00 01/17/24 08:43 Aspirin 325 Mg Tablet FEED TUBE 325 mg DAILY@0800 CARMELA Administration Atorvastatin Calcium 40 mg 01/13/24 09:00 01/22/24 08:22 Atorvastatin 40 Mg Tablet FEED TUBE 40 mg DAILY CARMELA Administration Dextrose 12.5 gm 01/07/24 13:18 Dextrose 50% 25 Gm/50 Ml Syringe IV PUSH PRN PRN Hypoglycemia Protocol Epoetin Dane-epbx 10,000 units 01/12/24 09:20 01/19/24 08:38 Epoetin Dane-Epbx 10,000 Units/Ml Vial SUB-Q 10,000 units MOWEFR@09 CARMELA Administration Glucagon 1 mg 01/07/24 13:18 Glucagon For Inj 1 Mg Vial IM PRN PRN Hypoglycemia Protocol Glucose 15 gm 01/07/24 13:18 Glucose Oral Gel 15 Gm Of Glucse In 37.5 Gm Tube PO PRN PRN Hypoglycemia Protocol Hydralazine HCl 10 mg 01/18/24 02:20 01/18/24 05:40 Hydralazine 10 Mg Tablet PO Not Given Q6HR CARMELA Dextrose 1,000 mls @ 100 mls/hr 01/07/24 13:18 Dextrose 5% 1,000 Ml IVPB PRN PRN Hypoglycemia Protocol Albumin Human 50 mls @ 999 mls/hr 01/07/24 17:11 01/12/24 10:30 Albutein IVPB 02/06/24 17:10 Infused Q10M PRN Infusion HYPOTENSION Levetiracetam 500 mg in 100 mls @ 400 mls/hr 01/07/24 21:00 01/21/24 20:36 Keppra Iv IVPB Infused Q24H CARMELA Infusion Meropenem 500 mg in 100 mls @ 200 mls/hr 01/20/24 15:00 01/22/24 02:19 IVPB 200 mls/hr Q12H CARMELA Administration Micafungin Sodium 100 mg/ 100 mls @ 100 mls/hr 01/20/24 16:00 01/21/24 17:15 Sodium Chloride IVPB Infused Q24H CARMELA Infusion Vancomycin HCl 500 mg in 100 mls @ 100 mls/hr 01/22/24 18:00 Vancomycin 500 Mg/Ns 100 Ml IVPB 01/22/24 18:59 ONCE ONE Insulin Aspart 4 - 8 units 01/10/24 07:55 01/22/24 08:21 Insulin Aspart (*Bkc) 100 Units/Ml SUB-Q 8 units Q4H CARMELA Administration Protocol Insulin Glargine 85 units 01/22/24 09:00 01/22/24 08:22 Insulin Glargine (*Bkc) 100 Units/Ml SUB-Q 85 units Q12H CARMELA Administration Labetalol HCl 10 mg 01/18/24 08:37 01/22/24 05:47 Labetalol Hcl Inj 100 Mg/20 Ml Vial IV PUSH 10 mg Q4H PRN Administration Hypertension Metoprolol Tartrate 100 mg 01/16/24 09:00 01/17/24 08:43 Metoprolol Tartrate 50 Mg Tab FEED TUBE 100 mg Q12HR CARMELA Administration Multi-Ingred Cream/Lotion/Oil/Oint 1 applic 01/07/24 21:00 01/22/24 08:22 Mineral Oil/White Petrolatum Ointment EACH EYE 1 applic Q12HR CARMELA Administration Pantoprazole Sodium 40 mg 01/07/24 21:00 01/22/24 08:22 Pantoprazole Sodium Iv 40 Mg Vial IV PUSH 40 mg Q12HR CARMELA Administration Vancomycin HCl 1 each 01/20/24 14:59 Vancomycin For Hemodialysis IVPB PRN PRN Vancomycin Protocol Radiology Results: ITS Impressions Abdomen/Pelvis CT 01/07/24 16:52 IMPRESSION: No acute abdominopelvic process. Specifically, there is no CT evidence of bowel obstruction. No definite evidence of renal injury, noting that low-grade renal injury as can be difficult to detect without contrast. Renal Ultrasound 01/08/24 10:47 IMPRESSION: 1. Normal kidney sizes. No hydronephrosis. Chest/Abdomen/Pelvis CT 01/12/24 15:08 IMPRESSION: Interval enlargement of the liver, when compared with previous examination. Flattening of the inferior vena cava suggesting severe hypovolemia. Interval development of basilar atelectasis and trace bilateral pleural effusions. No additional findings which represents a change from prior examination performed 01/07/2024. Supportive devices are in good position. Redemonstration of multiple stones within the gallbladder which is not distended. Head CT 01/12/24 15:31 IMPRESSION: 1. 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 2. Large distribution of chronic encephalomalacia in the expected distribution of left middle cerebral artery. Abdomen Ultrasound 01/13/24 09:31 IMPRESSION: 1. Cholelithiasis. 2. Normal liver Doppler. Arterial/Peripheral Duplex 01/13/24 09:31 IMPRESSION: 1. Cholelithiasis. 2. Normal liver Doppler. Venous Doppler Study 01/15/24 17:14 IMPRESSION: 1. Deep vein thrombosis involving left common femoral vein. ADDENDUM: 01/15/24 [id number] I called this result to Apurva Mclean. Abdomen X-Ray 01/16/24 06:03 Impression: NG tube in satisfactory position. IVC Filter Placement X-Ray 01/20/24 06:18 IMPRESSION: Fluoroscopy used during IVC filter insertion. Chest X-Ray 01/20/24 06:19 Impression: 1: No acute cardiopulmonary disease. Labs Labs: Laboratory Results - last 24 hr 01/21/24 01/21/24 01/21/24 09:52 12:16 15:24 WBC RBC Hgb Hct MCV MCH MCHC RDW Plt Count MPV Immature Gran % (Auto) Neut % (Auto) Lymph % (Auto) [place] % (Auto) Eos % (Auto) Baso % (Auto) Lymph # (Auto) [place] # (Auto) Eos # (Auto) Baso # (Auto) Abs Immat Gran (auto) Absolute Neuts (auto) Absolute Nucleated RBC Nucleated RBC % Platelet Estimate Large Platelets Hypochromasia Poikilocytosis Anisocytosis Zac Cells Schistocytes Sodium Potassium Chloride Carbon Dioxide Anion Gap BUN Creatinine Estim Creat Clear Calc Estimated GFR Glucose POC Capillary Glucose 390 H 378 H 319 H Calcium Phosphorus Magnesium Total Bilirubin AST ALT Alkaline Phosphatase Total Protein Albumin Random Vancomycin 01/21/24 01/22/24 01/22/24 20:09 00:11 04:05 WBC 10.9 H RBC 2.93 L Hgb 8.5 L Hct 30.8 L MCV 105.1 H D MCH 29.0 MCHC 27.6 L RDW 17.9 H Plt Count 408 H MPV 12.2 H Immature Gran % (Auto) 1.1 H Neut % (Auto) 81.3 H Lymph % (Auto) 10.2 L [place] % (Auto) 5.2 Eos % (Auto) 1.5 Baso % (Auto) 0.7 Lymph # (Auto) 1.12 [place] # (Auto) 0.6 Eos # (Auto) 0.2 Baso # (Auto) 0.1 Abs Immat Gran (auto) 0.12 H Absolute Neuts (auto) 8.9 H Absolute Nucleated RBC 0.000 Nucleated RBC % 0.0 Platelet Estimate Increased Large Platelets Present Hypochromasia 1+ Poikilocytosis 1+ Anisocytosis 1+ [place] Cells 1+ Schistocytes None seen Sodium 138 Potassium 4.2 Chloride 102 Carbon Dioxide 22 Anion Gap 14 H BUN 120 H D Creatinine 5.90 H Estim Creat Clear Calc 10 Estimated GFR 7 L Glucose 373 H POC Capillary Glucose 309 H 280 H Calcium 9.1 Phosphorus 4.2 Magnesium 2.8 H Total Bilirubin 0.5 AST 31 ALT 25 Alkaline Phosphatase 114 Total Protein 7.0 Albumin 3.2 L Random Vancomycin 20.1 H 01/22/24 08:19 WBC RBC Hgb Hct MCV MCH MCHC RDW Plt Count MPV Immature Gran % (Auto) Neut % (Auto) Lymph % (Auto) [place] % (Auto) Eos % (Auto) Baso % (Auto) Lymph # (Auto) [place] # (Auto) Eos # (Auto) Baso # (Auto) Abs Immat Gran (auto) Absolute Neuts (auto) Absolute Nucleated RBC Nucleated RBC % Platelet Estimate Large Platelets Hypochromasia Poikilocytosis Anisocytosis Zac Cells Schistocytes Sodium Potassium Chloride Carbon Dioxide Anion Gap BUN Creatinine Estim Creat Clear Calc Estimated GFR Glucose POC Capillary Glucose 377 H Calcium Phosphorus Magnesium Total Bilirubin AST ALT Alkaline Phosphatase Total Protein Albumin Random Vancomycin Quality VTE Prophylaxis VTE prophylaxis: mechanical ordered and pharmacologic ordered
[2024-01-22] MEDS: amLODIPine BESYLATE 10 MG TABLET FEED TUBE (09:26)
[2024-01-22] MEDS: EPOETIN ALFA-EPBX 10,000 UNITS/ML VIAL 10000 UNITS SUB-Q (09:27)
--- NOTE | 2024-01-22 09:46 | P.PNNP_ITS ---
Progress Note: A&P Assessment and Plan (1) Acute kidney failure: Code(s): N17.9 - Acute kidney failure, unspecified Status: Acute Assessment and Plan: * baseline creatinine not known * reportedly has some underlying renal insufficiency/CKD per family * still awaiting outside records * evaluation to date noted: * CT of abd/pelvis and renal ultrasound negative for obstruction * urine eosinophils negative * CPK normal * urine electrolytes non-prerenal * UA suggestive of infection * proteinuria noted complicated by severe acidosis and hyperkalemia on admission * etiology likely multifactorial: * infection/sepsis * hemodynamic instability/shock * SRINIVAS-I + HCTZ use prior to admission * possible prerenal factors * metformin use prior to admission * continued BP medications prior to admission * no improvement in mental status with dialytic interventions * stable electrolytes but declining urine output noted * HD today or tomorrow depending on availability of dialysis nursing staff (2) Septic shock: Code(s): A41.9 - Sepsis, unspecified organism; R65.21 - Severe sepsis with septic shock Status: Resolved Assessment and Plan: * resolved * initially normotensive on presentation * however, worsening hypotension in the ER * s/p aggressive IVF resuscitation * presumed source = aspiration pneumonia + UTI * blood and urine cultures negative -- still with on/off fevers * repeat cultures noted * on antibiotics * off pressors * follow hemodynamics (3) Acute respiratory failure: Code(s): J96.00 - Acute respiratory failure, unspecified whether with hypoxia or hypercapnia Status: Acute Assessment and Plan: * due to AMS + emesis and concerns for aspiration and inability to protect airway * intubated and on mechanical ventilation * continue ventilator support - off sedation * weaning as tolerated but mentation is still an issue (4) Encephalopathy: Code(s): G93.40 - Encephalopathy, unspecified Status: Acute Assessment and Plan: * as noted by presentation of altered mental status, delirium, and confusion * CT of brain shows several strokes * TSH and ammonia levels noted * HD did not help the mental status * still unresponsive (5) Stroke: Code(s): I63.9 - Cerebral infarction, unspecified Status: Acute Assessment and Plan: * as noted by repeat CT of head on 01/11: * Extensive bilateral acute infarcts in the expected distributions of the bilateral middle cerebral arteries. * presumably secondary to hypotension * Echo did not show any thrombus or ASD * remains unresponsive at this time (6) Anemia: Code(s): D64.9 - Anemia, unspecified Status: Acute Assessment and Plan: * noted drop in H/H by labs on 01/16 * was on heparin gtt for left LE DVT (but off now) * PRBC transfusion per protocol * ALICE with dialysis * follow trend of H/H (7) Deep vein thrombosis of left lower extremity: Code(s): I82.402 - Acute embolism and thrombosis of unspecified deep veins of left lower extremity Status: Acute Assessment and Plan: * as noted by LE dopplers * s/p IVC filter placement on 01/18/24 (8) Insulin dependent diabetes mellitus: Status: Chronic Assessment and Plan: * follow accu-checks * glycemic control per hospitalists/business agent Will continue to follow. Subjective Date/time seen: 01/22/24 09:46 Interval history: Follow-up for acute kidney injury/acute renal failure (on chronic kidney disease?) No significant change noted with regard to mental status -- remains unresponsive and does not follow commands but does withdraw to pain; urine output remains suboptimal and BUN/creatinine rising without dialytic support; temperature curve is better in the last 24 hours; no apparent distress noted. Exam Narrative: General: somewhat ill appearing female intubated and on mechanical ventilation Heart: normal S1 and S2; no rub Lungs: coarse breath sounds bilaterally Abdomen: soft, nontender, nondistended, positive bowel sounds Extremities: no cyanosis or clubbing; no edema Skin: no rash Objective Data Vital Signs Vital Signs: Vital Signs Temp Pulse Resp BP Pulse Ox O2 Del Method FiO2 01/22/24 09:27 99 F 89 13 167/64 H 100 01/22/24 08:00 21 01/22/24 08:00 98.7 F 86 14 178/68 H 100 01/22/24 06:00 98.7 F 83 13 162/76 H 100 01/22/24 06:00 83 01/22/24 05:57 83 100 Mechanical Ventilation 01/22/24 05:47 88 01/22/24 05:30 98.6 F 87 13 177/75 H 100 01/22/24 04:00 98.6 F 85 13 179/78 H 100 01/22/24 04:00 21 01/22/24 04:00 13 100 Mechanical Ventilation 01/22/24 04:00 85 01/22/24 02:12 80 100 Mechanical Ventilation 21 01/22/24 02:00 81 01/22/24 02:00 98.9 F 81 13 157/68 H 100 01/22/24 01:33 91 01/22/24 01:30 99.1 F 90 13 176/74 H 100 01/22/24 00:00 99.5 F 87 13 147/70 H 100 01/22/24 00:00 21 01/22/24 00:00 13 100 Mechanical Ventilation 01/22/24 00:00 87 01/21/24 23:08 86 100 Mechanical Ventilation 21 01/21/24 22:00 99.3 F 85 13 154/67 H 100 01/21/24 22:00 85 01/21/24 20:00 21 01/21/24 20:00 13 100 Mechanical Ventilation 01/21/24 20:00 94 01/21/24 20:32 95 01/21/24 20:00 99.8 F H 94 12 170/76 H 100 01/21/24 19:23 94 100 Mechanical Ventilation 01/21/24 16:40 106 H 100 Mechanical Ventilation 21 01/21/24 18:00 92 01/21/24 16:00 112 H 01/21/24 18:00 100.1 F H 93 20 161/70 H 100 01/21/24 16:00 21 01/21/24 16:00 18 100 Mechanical Ventilation 01/21/24 16:47 99.9 F H 107 H 187/77 H 01/21/24 16:00 100.1 F H 105 H 18 161/79 H 100 01/21/24 16:46 106 H 01/21/24 13:30 104 H 99 Mechanical Ventilation 21 01/21/24 12:00 21 01/21/24 12:00 100.4 F H 102 H 14 144/70 H 100 01/21/24 14:00 100.6 F H 106 H 17 134/69 100 01/21/24 14:00 105 H 01/21/24 12:00 14 99 Mechanical Ventilation 01/21/24 12:00 101 H Intake/Output Intake/Output: Intake & Output 01/19/24 01/20/24 01/21/24 01/22/24 23:59 23:59 23:59 23:59 Intake Total 1492 1892 1853 746 Output Total 375 360 80 25 Balance 1117 1532 1773 721 Meds/Results Medications: Active Medications Generic Name Dose Route Start Last Admin Trade Name Freq PRN Reason Stop Dose Admin Acetaminophen 650 mg 01/10/24 08:02 01/20/24 16:00 Acetaminophen 325 Mg Tablet FEED TUBE 650 mg Q6H PRN Administration Mild Pain (1-3) or Fever Amlodipine Besylate 10 mg 01/22/24 08:50 01/22/24 09:26 Amlodipine Besylate 10 Mg Tablet FEED TUBE 10 mg DAILY CARMELA Administration Aspirin 325 mg 01/12/24 16:00 01/17/24 08:43 Aspirin 325 Mg Tablet FEED TUBE 325 mg DAILY@0800 CARMELA Administration Atorvastatin Calcium 40 mg 01/13/24 09:00 01/22/24 08:22 Atorvastatin 40 Mg Tablet FEED TUBE 40 mg DAILY CARMELA Administration Dextrose 12.5 gm 01/07/24 13:18 Dextrose 50% 25 Gm/50 Ml Syringe IV PUSH PRN PRN Hypoglycemia Protocol Epoetin Dane-epbx 10,000 units 01/12/24 09:20 01/22/24 09:27 Epoetin Dane-Epbx 10,000 Units/Ml Vial SUB-Q 10,000 units MOWEFR@09 CARMELA Administration Glucagon 1 mg 01/07/24 13:18 Glucagon For Inj 1 Mg Vial IM PRN PRN Hypoglycemia Protocol Glucose 15 gm 01/07/24 13:18 Glucose Oral Gel 15 Gm Of Glucse In 37.5 Gm Tube PO PRN PRN Hypoglycemia Protocol Hydralazine HCl 10 mg 01/18/24 02:20 01/18/24 05:40 Hydralazine 10 Mg Tablet PO Not Given Q6HR CARMELA Dextrose 1,000 mls @ 100 mls/hr 01/07/24 13:18 Dextrose 5% 1,000 Ml IVPB PRN PRN Hypoglycemia Protocol Albumin Human 50 mls @ 999 mls/hr 01/07/24 17:11 01/12/24 10:30 Albutein IVPB 02/06/24 17:10 Infused Q10M PRN Infusion HYPOTENSION Levetiracetam 500 mg in 100 mls @ 400 mls/hr 01/07/24 21:00 01/21/24 20:36 Keppra Iv IVPB Infused Q24H CARMELA Infusion Micafungin Sodium 100 mg/ 100 mls @ 100 mls/hr 01/20/24 16:00 01/21/24 17:15 Sodium Chloride IVPB Infused Q24H CARMELA Infusion Vancomycin HCl 500 mg in 100 mls @ 100 mls/hr 01/22/24 18:00 Vancomycin 500 Mg/Ns 100 Ml IVPB 01/22/24 18:59 ONCE ONE Meropenem 500 mg in 100 mls @ 200 mls/hr 01/22/24 18:00 IVPB Q24H CARMELA Insulin Aspart 4 - 8 units 01/10/24 07:55 01/22/24 08:21 Insulin Aspart (*Bkc) 100 Units/Ml SUB-Q 8 units Q4H CARMELA Administration Protocol Insulin Glargine 85 units 01/22/24 09:00 01/22/24 08:22 Insulin Glargine (*Bkc) 100 Units/Ml SUB-Q 85 units Q12H CARMELA Administration Labetalol HCl 10 mg 01/18/24 08:37 01/22/24 10:42 Labetalol Hcl Inj 100 Mg/20 Ml Vial IV PUSH 10 mg Q4H PRN Administration Hypertension Metoprolol Tartrate 100 mg 01/16/24 09:00 01/17/24 08:43 Metoprolol Tartrate 50 Mg Tab FEED TUBE 100 mg Q12HR CARMELA Administration Multi-Ingred Cream/Lotion/Oil/Oint 1 applic 01/07/24 21:00 01/22/24 08:22 Mineral Oil/White Petrolatum Ointment EACH EYE 1 applic Q12HR CARMELA Administration Pantoprazole Sodium 40 mg 01/07/24 21:00 01/22/24 08:22 Pantoprazole Sodium Iv 40 Mg Vial IV PUSH 40 mg Q12HR CARMELA Administration Vancomycin HCl 1 each 01/20/24 14:59 Vancomycin For Hemodialysis IVPB PRN PRN Vancomycin Protocol Radiology Results: ITS Impressions Abdomen/Pelvis CT 01/07/24 16:52 IMPRESSION: No acute abdominopelvic process. Specifically, there is no CT evidence of bowel obstruction. No definite evidence of renal injury, noting that low-grade renal injury as can be difficult to detect without contrast. Renal Ultrasound 01/08/24 10:47 IMPRESSION: 1. Normal kidney sizes. No hydronephrosis. Chest/Abdomen/Pelvis CT 01/12/24 15:08 IMPRESSION: Interval enlargement of the liver, when compared with previous examination. Flattening of the inferior vena cava suggesting severe hypovolemia. Interval development of basilar atelectasis and trace bilateral pleural effusions. No additional findings which represents a change from prior examination performed 01/07/2024. Supportive devices are in good position. Redemonstration of multiple stones within the gallbladder which is not distended . Head CT 01/12/24 15:31 IMPRESSION: 1. 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 2. Large distribution of chronic encephalomalacia in the expected distribution of left middle cerebral artery. Abdomen Ultrasound 01/13/24 09:31 IMPRESSION: 1. Cholelithiasis. 2. Normal liver Doppler. Arterial/Peripheral Duplex 01/13/24 09:31 IMPRESSION: 1. Cholelithiasis. 2. Normal liver Doppler. Venous Doppler Study 01/15/24 17:14 IMPRESSION: 1. Deep vein thrombosis involving left common femoral vein. ADDENDUM: 01/15/24 2681 I called this result to Apurva Mclean. Abdomen X-Ray 01/16/24 06:03 Impression: NG tube in satisfactory position. IVC Filter Placement X-Ray 01/20/24 06:18 IMPRESSION: Fluoroscopy used during IVC filter insertion. Chest X-Ray 01/20/24 06:19 Impression: 1: No acute cardiopulmonary disease. Labs Labs: Laboratory Tests 01/22/24 04:05 01/22/24 04:05 Calcium 9.1 Phosphorus 4.2 Magnesium 2.8 H Total Bilirubin 0.5 AST 31 ALT 25 Alkaline Phosphatase 114 Total Protein 7.0 Albumin 3.2 L Random Vancomycin 20.1 H Microbiology 01/19/24 08:11 Blood Blood Culture - Preliminary Staphylococcus epidermidis 01/19/24 20:21 Sputum Sputum Culture - Final Yeast Present
--- NOTE | 2024-01-22 10:35 | PCFNICU ---
ICU Rounding Note: Pt current nutrition is Nepro @ 50 ml/h: 1980 kcal, 89 g protein, 800 ml free water. Tolerating well. Meeting about 100% EER, 93% estimated protein needs. Nutrition recommendation: No new nutrition recommendations. Continue current nutrition care plan and tube feeding orders. Agree with orders. Last recorded weight is 84.3 kg. Bowel Motility: Fecal catheter draining liquid stools Labs Reviewed: Hgb 8.5, Hct 30.8, Al b 3.2, GFR 7, BUN 120, Cre 5.9, Glu 373 Meds Noted: Insulin. Vanco, Protonix. Ne sedation Skin: Maceration and friction to buttocks Additional Notes: Remains on ventilator with no sedation. Awaiting a family member to see patient. tolerating tube feeds. Following daily in ICU rounds. Monitoring tube feeding tolerance, labs, weights, output, plan of care Follow up daily in rounds, reassess Monday and Monday.
[2024-01-22 10:46] LABS: Glucose Point of Care 377 mg/dl (65-105)
[2024-01-22 15:53] LABS: Glucose Point of Care 344 mg/dl (65-105)
--- NOTE | 2024-01-22 16:39 | P.PNIM_ITS ---
Progress Note: A&P Assessment and Plan (1) Stroke: Code(s): I63.9 - Cerebral infarction, unspecified Status: Acute (2) Encephalopathy: Code(s): G93.40 - Encephalopathy, unspecified Status: Acute (3) Acute respiratory failure: Code(s): J96.00 - Acute respiratory failure, unspecified whether with hypoxia or hypercapnia Status: Acute (4) Acute kidney failure: Code(s): N17.9 - Acute kidney failure, unspecified Status: Acute (5) Metabolic acidosis: Code(s): E87.20 - Acidosis, unspecified Status: Acute (6) Septic shock: Code(s): A41.9 - Sepsis, unspecified organism; R65.21 - Severe sepsis with septic shock Status: Acute (7) Diastolic dysfunction: Code(s): I51.89 - Other ill-defined heart diseases Status: Acute (8) Insulin dependent diabetes mellitus: Status: Chronic (9) Right hemiparesis: Code(s): G81.91 - Hemiplegia, unspecified affecting right dominant side Status: Acute (10) Seizures: Code(s): R56.9 - Unspecified convulsions Status: Acute (11) Hypertension: Code(s): I10 - Essential (primary) hypertension Status: Acute (12) Anemia: Code(s): D64.9 - Anemia, unspecified Status: Acute Plan 63-year-old female with history of stroke, insulin-dependent diabetes, hypertension, hyperlipidemia, chronic kidney disease, anemia chronic disease, depression, and anxiety who presented to the emergency department accompanied by her son for evaluation of confusion. Was intubated. CT scan on presentation showed only old stroke and encephalomalacia Since then patient has not woken up despite holding sedation for multiple days and dialysis.01/[address] was done which showed. 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 These are likely secondary to hypotension Echo did not show any thrombus or ASD Acute encephalopathy Continue with aspirin, statin Neurology was following EEG was done Patient has been off sedation, still not responsive Ammonia levels unremarkable Acute kidney injury CT of the abdomen and pelvis did not show any hydronephrosis or urinary obstruction patient was started on hemodialysis Septic shock: Resolved Patient hypotensive on presentation Patient was given IV fluid bolus followed by maintenance IV fluids Levophed weaned off Staphylococci epidermidis 1/2 bottles, Urine cultures growing Tatiana albicans, Sputum cultures growing Yeast Patient remained febrile with T-max of 101.3. Patient was started on vancomycin, meropenem and micafungin (01/19) 01/21: Local failure or night, continue antibiotics and antifungals as above Seizure: Patient has a history of seizures, on p.o. Keppra 500 mg p.o. q.12 hours Continue Keppra IV 500 mg IV q.24 (discuss with pharmacist) EEG negative for any seizure-like activity Essential (primary) hypertension Blood pressures have been labile, will hold metoprolol, hydralazine and amlodipine for now -patient has p.r.n. labetalol DVT prophylaxis: Heparin on hold due to anemia Code status: DNR Disposition: Continues to be in ICU, extremely poor prognosis Subjective Date/time seen: 01/22/24 16:39 Interval history: I saw and examined the patient in ICU. No new issue events overnight, patient is on mechanical ventilation, unresponsive, not on sedation, has low-grade fever, blood pressure stable, labs reviewed, Exam Narrative: General: Intubated and sedated HEENT:? Pupils are equal and reactive to light, patient has positive corneal reflex, sclera is clear, ETT in place, facial puffiness noted Neck:? Supple, right IJ dialysis catheter in place Respiratory:? Coarse breath sounds bilaterally, decreased at bases no wheezing, adequate air entry Cardiac:? S1-S2 normal, regular rate and rhythm, Abdomen:? Soft, nontender, nondistended, hypoactive bowel sounds, old midline surgical scar noted Extremities:? Dry skin, decreased pedal pulses, pitting edema bilateral lower extremities Neuro: off sedation,, PERRL, patient withdraws to pain stimulus in bilateral lower extremities, decerebrate posturing of the upper extremities on pain stimuli. Skin:? Dry and flaky skin on lower extremities, skin is warm Psych:? Unable to assess at this time Objective Data Vital Signs Vital Signs: Vital Signs - 24 hr 01/21/24 16:46 01/21/24 16:47 01/21/24 18:00 Temperature 99.9 F H 100.1 F H Pulse Rate 106 H 107 H 93 Respiratory Rate 20 Blood Pressure 187/77 H 161/70 H Pulse Oximetry 100 Oxygen Delivery Fraction of Inspired Oxygen 01/21/24 18:00 01/21/24 16:40 01/21/24 19:23 Temperature Pulse Rate 92 106 H 94 Respiratory Rate Blood Pressure Pulse Oximetry 100 100 Oxygen Delivery Mechanical Ventilation Mechanical Ventilation Fraction of Inspired Oxygen 21 21 01/21/24 20:00 01/21/24 20:32 01/21/24 20:00 Temperature 99.8 F H Pulse Rate 94 95 94 Respiratory Rate 12 Blood Pressure 170/76 H Pulse Oximetry 100 Oxygen Delivery Fraction of Inspired Oxygen 01/21/24 20:00 01/21/24 20:00 01/21/24 22:00 Temperature Pulse Rate 85 Respiratory Rate 13 Blood Pressure Pulse Oximetry 100 Oxygen Delivery Mechanical Ventilation Fraction of Inspired Oxygen 21 21 01/21/24 22:00 01/21/24 23:08 01/22/24 00:00 Temperature 99.3 F Pulse Rate 85 86 87 Respiratory Rate 13 Blood Pressure 154/67 H Pulse Oximetry 100 100 Oxygen Delivery Mechanical Ventilation Fraction of Inspired Oxygen 21 01/22/24 00:00 01/22/24 00:00 01/22/24 00:00 Temperature 99.5 F Pulse Rate 87 Respiratory Rate 13 13 Blood Pressure 147/70 H Pulse Oximetry 100 100 Oxygen Delivery Mechanical Ventilation Fraction of Inspired Oxygen 21 21 01/22/24 01:30 01/22/24 01:33 01/22/24 02:00 Temperature 99.1 F 98.9 F Pulse Rate 90 91 81 Respiratory Rate 13 13 Blood Pressure 176/74 H 157/68 H Pulse Oximetry 100 100 Oxygen Delivery Fraction of Inspired Oxygen 01/22/24 02:00 01/22/24 02:12 01/22/24 04:00 Temperature Pulse Rate 81 80 85 Respiratory Rate Blood Pressure Pulse Oximetry 100 Oxygen Delivery Mechanical Ventilation Fraction of Inspired Oxygen 21 01/22/24 04:00 01/22/24 04:00 01/22/24 04:00 Temperature 98.6 F Pulse Rate 85 Respiratory Rate 13 13 Blood Pressure 179/78 H Pulse Oximetry 100 100 Oxygen Delivery Mechanical Ventilation Fraction of Inspired Oxygen 21 21 01/22/24 05:30 01/22/24 05:47 01/22/24 05:57 Temperature 98.6 F Pulse Rate 87 88 83 Respiratory Rate 13 Blood Pressure 177/75 H Pulse Oximetry 100 100 Oxygen Delivery Mechanical Ventilation Fraction of Inspired Oxygen 21 01/22/24 06:00 01/22/24 06:00 01/22/24 08:00 Temperature 98.7 F 98.7 F Pulse Rate 83 83 86 Respiratory Rate 13 14 Blood Pressure 162/76 H 178/68 H Pulse Oximetry 100 100 Oxygen Delivery Fraction of Inspired Oxygen 01/22/24 08:00 01/22/24 09:27 01/22/24 08:00 Temperature 99 F Pulse Rate 89 87 Respiratory Rate 13 Blood Pressure 167/64 H Pulse Oximetry 100 Oxygen Delivery Fraction of Inspired Oxygen 21 01/22/24 08:00 01/22/24 08:44 01/22/24 10:00 Temperature Pulse Rate 87 91 Respiratory Rate Blood Pressure Pulse Oximetry 100 100 Oxygen Delivery Mechanical Ventilation Mechanical Ventilation Fraction of Inspired Oxygen 21 21 01/22/24 10:00 01/22/24 10:00 01/22/24 10:30 Temperature 99.0 F Pulse Rate 84 92 97 Respiratory Rate 14 Blood Pressure 156/62 H 162/68 H Pulse Oximetry 100 100 Oxygen Delivery Mechanical Ventilation Fraction of Inspired Oxygen 21 01/22/24 10:44 01/22/24 11:21 01/22/24 12:00 Temperature Pulse Rate 88 84 Respiratory Rate Blood Pressure 170/65 H 156/62 H Pulse Oximetry 100 Oxygen Delivery Mechanical Ventilation Fraction of Inspired Oxygen 21 01/22/24 12:00 01/22/24 12:00 01/22/24 12:00 Temperature 99 F Pulse Rate 86 85 Respiratory Rate 21 H Blood Pressure 154/64 H Pulse Oximetry 100 Oxygen Delivery Fraction of Inspired Oxygen 21 01/22/24 15:13 01/22/24 14:00 01/22/24 14:00 Temperature 98.8 F Pulse Rate 97 100 100 Respiratory Rate 12 Blood Pressure 163/70 H Pulse Oximetry 100 97 Oxygen Delivery Mechanical Ventilation Fraction of Inspired Oxygen 21 01/22/24 16:00 Temperature 99.1 F Pulse Rate 98 Respiratory Rate 12 Blood Pressure 158/70 H Pulse Oximetry 100 Oxygen Delivery Fraction of Inspired Oxygen Intake/Output Intake/Output: Intake & Output 01/19/24 01/20/24 01/21/24 01/22/24 23:59 23:59 23:59 23:59 Intake Total 1492 1892 1853 746 Output Total 375 360 80 25 Balance 1117 1532 1773 721 Meds/Results Medications: Active Medications Generic Name Dose Route Start Last Admin Trade Name Freq PRN Reason Stop Dose Admin Acetaminophen 650 mg 01/10/24 08:02 01/20/24 16:00 Acetaminophen 325 Mg Tablet FEED TUBE 650 mg Q6H PRN Administration Mild Pain (1-3) or Fever Amlodipine Besylate 10 mg 01/22/24 08:50 01/22/24 09:26 Amlodipine Besylate 10 Mg Tablet FEED TUBE 10 mg DAILY CARMELA Administration Aspirin 325 mg 01/12/24 16:00 01/17/24 08:43 Aspirin 325 Mg Tablet FEED TUBE 325 mg DAILY@0800 CARMELA Administration Atorvastatin Calcium 40 mg 01/13/24 09:00 01/22/24 08:22 Atorvastatin 40 Mg Tablet FEED TUBE 40 mg DAILY CARMELA Administration Dextrose 12.5 gm 01/07/24 13:18 Dextrose 50% 25 Gm/50 Ml Syringe IV PUSH PRN PRN Hypoglycemia Protocol Epoetin Dane-epbx 10,000 units 01/12/24 09:20 01/22/24 09:27 Epoetin Dane-Epbx 10,000 Units/Ml Vial SUB-Q 10,000 units MOWEFR@09 CARMELA Administration Glucagon 1 mg 01/07/24 13:18 Glucagon For Inj 1 Mg Vial IM PRN PRN Hypoglycemia Protocol Glucose 15 gm 01/07/24 13:18 Glucose Oral Gel 15 Gm Of Glucse In 37.5 Gm Tube PO PRN PRN Hypoglycemia Protocol Hydralazine HCl 10 mg 01/18/24 02:20 01/18/24 05:40 Hydralazine 10 Mg Tablet PO Not Given Q6HR CARMELA Dextrose 1,000 mls @ 100 mls/hr 01/07/24 13:18 Dextrose 5% 1,000 Ml IVPB PRN PRN Hypoglycemia Protocol Albumin Human 50 mls @ 999 mls/hr 01/07/24 17:11 01/12/24 10:30 Albutein IVPB 02/06/24 17:10 Infused Q10M PRN Infusion HYPOTENSION Levetiracetam 500 mg in 100 mls @ 400 mls/hr 01/07/24 21:00 01/21/24 20:36 Keppra Iv IVPB Infused Q24H CARMELA Infusion Micafungin Sodium 100 mg/ 100 mls @ 100 mls/hr 01/20/24 16:00 01/21/24 17:15 Sodium Chloride IVPB Infused Q24H CARMELA Infusion Meropenem 500 mg in 100 mls @ 200 mls/hr 01/22/24 18:00 IVPB Q24H [facility] Insulin Aspart 4 - 8 units 01/10/24 07:55 01/22/24 15:50 Insulin Aspart (*Bkc) 100 Units/Ml SUB-Q 6 units Q4H [facility] Administration Protocol Insulin Glargine 85 units 01/22/24 09:00 01/22/24 08:22 Insulin Glargine (*Bkc) 100 Units/Ml SUB-Q 85 units Q12H [facility] Administration Labetalol HCl 10 mg 01/18/24 08:37 01/22/24 10:42 Labetalol Hcl Inj 100 Mg/20 Ml Vial IV PUSH 10 mg Q4H PRN Administration Hypertension Metoprolol Tartrate 100 mg 01/16/24 09:00 01/17/24 08:43 Metoprolol Tartrate 50 Mg Tab FEED TUBE 100 mg Q12HR CARMELA Administration Multi-Ingred Cream/Lotion/Oil/Oint 1 applic 01/07/24 21:00 01/22/24 08:22 Mineral Oil/White Petrolatum Ointment EACH EYE 1 applic Q12HR CARMELA Administration Pantoprazole Sodium 40 mg 01/07/24 21:00 01/22/24 08:22 Pantoprazole Sodium Iv 40 Mg Vial IV PUSH 40 mg Q12HR CARMELA Administration Vancomycin HCl 1 each 01/20/24 14:59 Vancomycin For Hemodialysis IVPB PRN PRN Vancomycin Protocol Radiology Results: ITS Impressions Abdomen/Pelvis CT 01/07/24 16:52 IMPRESSION: No acute abdominopelvic process. Specifically, there is no CT evidence of bowel obstruction. No definite evidence of renal injury, noting that low-grade renal injury as can be difficult to detect without contrast. Renal Ultrasound 01/08/24 10:47 IMPRESSION: 1. Normal kidney sizes. No hydronephrosis. Chest/Abdomen/Pelvis CT 01/12/24 15:08 IMPRESSION: Interval enlargement of the liver, when compared with previous examination. Flattening of the inferior vena cava suggesting severe hypovolemia. Interval development of basilar atelectasis and trace bilateral pleural effusions. No additional findings which represents a change from prior examination performed 01/07/2024. Supportive devices are in good position. Redemonstration of multiple stones within the gallbladder which is not distended. Head CT 01/12/24 15:31 IMPRESSION: 1. 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 2. Large distribution of chronic encephalomalacia in the expected distribution of left middle cerebral artery. Abdomen Ultrasound 01/13/24 09:31 IMPRESSION: 1. Cholelithiasis. 2. Normal liver Doppler. Arterial/Peripheral Duplex 01/13/24 09:31 IMPRESSION: 1. Cholelithiasis. 2. Normal liver Doppler. Venous Doppler Study 01/15/24 17:14 IMPRESSION: 1. Deep vein thrombosis involving left common femoral vein. ADDENDUM: 01/15/24 [id number] I called this result to Apurva Mclean. Abdomen X-Ray 01/16/24 06:03 Impression: NG tube in satisfactory position. IVC Filter Placement X-Ray 01/20/24 06:18 IMPRESSION: Fluoroscopy used during IVC filter insertion. Chest X-Ray 01/20/24 06:19 Impression: 1: No acute cardiopulmonary disease. Labs Labs: Laboratory Results - last 24 hr 01/21/24 01/22/24 01/22/24 20:09 00:11 04:05 WBC 10.9 H RBC 2.93 L Hgb 8.5 L Hct 30.8 L MCV 105.1 H D MCH 29.0 MCHC 27.6 L RDW 17.9 H Plt Count 408 H MPV 12.2 H Immature Gran % (Auto) 1.1 H Neut % (Auto) 81.3 H Lymph % (Auto) 10.2 L [place] % (Auto) 5.2 Eos % (Auto) 1.5 Baso % (Auto) 0.7 Lymph # (Auto) 1.12 [place] # (Auto) 0.6 Eos # (Auto) 0.2 Baso # (Auto) 0.1 Abs Immat Gran (auto) 0.12 H Absolute Neuts (auto) 8.9 H Absolute Nucleated RBC 0.000 Nucleated RBC % 0.0 Platelet Estimate Increased Large Platelets Present Hypochromasia 1+ Poikilocytosis 1+ Anisocytosis 1+ [place] Cells 1+ Schistocytes None seen Sodium 138 Potassium 4.2 Chloride 102 Carbon Dioxide 22 Anion Gap 14 H BUN 120 H D Creatinine 5.90 H Estim Creat Clear Calc 10 Estimated GFR 7 L Glucose 373 H POC Capillary Glucose 309 H 280 H Calcium 9.1 Phosphorus 4.2 Magnesium 2.8 H Total Bilirubin 0.5 AST 31 ALT 25 Alkaline Phosphatase 114 Total Protein 7.0 Albumin 3.2 L Random Vancomycin 20.1 H 01/22/24 01/22/24 01/22/24 08:19 10:40 15:49 WBC RBC Hgb Hct MCV MCH MCHC RDW Plt Count MPV Immature Gran % (Auto) Neut % (Auto) Lymph % (Auto) [place] % (Auto) Eos % (Auto) Baso % (Auto) Lymph # (Auto) [place] # (Auto) Eos # (Auto) Baso # (Auto) Abs Immat Gran (auto) Absolute Neuts (auto) Absolute Nucleated RBC Nucleated RBC % Platelet Estimate Large Platelets Hypochromasia Poikilocytosis Anisocytosis Zac Cells Schistocytes Sodium Potassium Chloride Carbon Dioxide Anion Gap BUN Creatinine Estim Creat Clear Calc Estimated GFR Glucose POC Capillary Glucose 377 H 377 H 344 H Calcium Phosphorus Magnesium Total Bilirubin AST ALT Alkaline Phosphatase Total Protein Albumin Random Vancomycin
[2024-01-22] MEDS: MICAFUNGIN SODIUM 100 MG in SODIUM CHLORIDE 0.9% IV 100 ML IVPB (16:42)
[2024-01-22 19:39] LABS: Glucose Point of Care 333 mg/dl (65-105)
[2024-01-22] MEDS: levETIRAcetam 500MG/NACL 100ML 500 MG/100 ML BAG 400 MG IVPB (20:34)
[2024-01-23] VITALS (27 sets, daily range): BP systolic 100–170; BP diastolic 50–78; PULSE 76–96; RESP 10–17; TEMP 36.8–37.6; O2SAT 93–100
[2024-01-23 00:04] LABS: Glucose Point of Care 259 mg/dl (65-105)
[2024-01-23] MEDS: LABETALOL HCL INJ 100 MG/20 ML VIAL 10 MG IV PUSH ×2 (00:05→17:46)
[2024-01-23 01:31] LABS: Anion Gap 11 mmol/L (4-12); Calcium 8.7 mg/dL (8.4-10.2); Carbon Dioxide 23 mmol/L (22-30); Chloride 103 mmol/L (98-107); Estimated CRCL calculation 10 ml/min; Estimated Glomerular Filt Rate 7; Glucose 299 mg/dL (65-110); Magnesium 2.7 mg/dL (1.6-2.3); Phosphorus 4.4 mg/dL (2.5-4.5); Potassium 4.2 mmol/L (3.4-5.0); Sodium 137 mmol/L (137-145)
[2024-01-23 01:37] LABS: Blood Urea Nitrogen 139 mg/dL (7-17)
[2024-01-23 03:07] LABS: Basophils Absolute Auto 0.1 K/mm3 (0.0-0.1); Basophils Percent Auto 0.7 % (0.2-1.2); Eosinophils Absolute Auto 0.3 K/mm3 (0-0.3); Eosinophils Percent Auto 2.1 % (0-4.4); Hematocrit 27.4 % (37.0-47.0); Hemoglobin 7.8 g/dL (12.0-15.0); Immature Granulocyte Absolute 0.15 K/mm3 (0.00-0.031); Immature Granulocyte Percent A 1.2 % (0-0.5); Lymphocytes Absolute Auto 1.25 K/mm3 (0.9-3.2); Lymphocytes Percent Auto 10.4 % (18.3-44.2); Mean Corpuscular HGB Conc 28.5 g/dl (32-36); Mean Corpuscular Hemoglobin 28.9 pg (26-34); Mean Corpuscular Volume 101.5 fl (80-100); Mean Platelet Volume 12.3 fl (7.4-10.4); Monocytes Absolute Auto 1.1 K/mm3 (0.1-0.6); Monocytes Percent Auto 9.1 % (2.6-8.5); Neutrophils Absolute Auto 9.2 K/mm3 (1.3-6.7); Neutrophils Percent Auto 76.5 % (45.5-73.1); Platelet Count Result 396 k/mm3 (150-375); Red Cell Distribution Width 18.2 % (11.5-14.5)
[2024-01-23 03:29] LABS: Alanine Aminotransferase 23 U/L (6-35); Albumin Level 3.1 g/dL (3.5-5.1); Alkaline Phosphatase 97 U/L (38-126); Anion Gap 14 mmol/L (4-12); Aspartate Amino Transferase 32 U/L (14-36); Bilirubin,Total 0.5 mg/dL (0.2-1.3); Calcium 8.8 mg/dL (8.4-10.2); Carbon Dioxide 21 mmol/L (22-30); Chloride 102 mmol/L (98-107); Estimated CRCL calculation 10 ml/min; Estimated Glomerular Filt Rate 7; Glucose 281 mg/dL (65-110); Magnesium 2.9 mg/dL (1.6-2.3); Phosphorus 4.6 mg/dL (2.5-4.5); Potassium 4.3 mmol/L (3.4-5.0); Sodium 137 mmol/L (137-145)
[2024-01-23 03:40] LABS: Anisocytosis 1+; Burr Cells 1+; Macrocytosis 1+ (NORMAL); Ovalocytes 1+; Platelet Estimate Slightly Increased (Adequate)
[2024-01-23 03:41] LABS: Schistocytes None Seen
[2024-01-23 03:44] LABS: Vancomycin Random 18.7 ug/mL (10-20)
[2024-01-23 03:49] LABS: Blood Urea Nitrogen 144 mg/dL (7-17)
[2024-01-23 04:26] LABS: Glucose Point of Care 247 mg/dl (65-105)
[2024-01-23] MEDS: INSULIN ASPART (*BKC) 100 UNITS/ML SUB-Q ×5 (04:30→20:46)
[2024-01-23 07:58] LABS: Glucose Point of Care 247 mg/dl (65-105)
[2024-01-23] MEDS: ATORVASTATIN 40 MG TABLET FEED TUBE (07:58)
[2024-01-23] MEDS: PANTOPRAZOLE SODIUM IV 40 MG VIAL IV PUSH ×2 (07:58→20:47)
[2024-01-23] MEDS: INSULIN GLARGINE (*BKC) 100 UNITS/ML 95 UNITS SUB-Q ×2 (08:00→20:46)
[2024-01-23] MEDS: MINERAL OIL/WHITE PETROLATUM OINTMENT 1 APPLIC EACH EYE ×2 (08:01→20:48)
--- NOTE | 2024-01-23 08:48 | P.PNNP_ITS ---
Progress Note: A&P Assessment and Plan (1) Acute kidney failure: Code(s): N17.9 - Acute kidney failure, unspecified Status: Acute Assessment and Plan: * baseline creatinine not known * reportedly has some underlying renal insufficiency/CKD per family * still awaiting outside records * evaluation to date noted: * CT of abd/pelvis and renal ultrasound negative for obstruction * urine eosinophils negative * CPK normal * urine electrolytes non-prerenal * UA suggestive of infection * proteinuria noted complicated by severe acidosis and hyperkalemia on admission * etiology likely multifactorial: * infection/sepsis * hemodynamic instability/shock * SRINIVAS-I + HCTZ use prior to admission * possible prerenal factors * metformin use prior to admission * continued BP medications prior to admission * no improvement in mental status with dialytic interventions * stable electrolytes but declining urine output noted * HD today (2) Septic shock: Code(s): A41.9 - Sepsis, unspecified organism; R65.21 - Severe sepsis with septic shock Status: Resolved Assessment and Plan: * resolved * initially normotensive on presentation * however, worsening hypotension in the ER * s/p aggressive IVF resuscitation * presumed source = aspiration pneumonia + UTI * blood and urine cultures negative -- still with on/off fevers * repeat cultures noted * on antibiotics * off pressors * follow hemodynamics (3) Acute respiratory failure: Code(s): J96.00 - Acute respiratory failure, unspecified whether with hypoxia or hypercapnia Status: Acute Assessment and Plan: * due to AMS + emesis and concerns for aspiration and inability to protect airway * intubated and on mechanical ventilation * continue ventilator support - off sedation * weaning as tolerated but mentation is still an issue (4) Encephalopathy: Code(s): G93.40 - Encephalopathy, unspecified Status: Acute Assessment and Plan: * as noted by presentation of altered mental status, delirium, and confusion * CT of brain shows several strokes * TSH and ammonia levels noted * HD did not help the mental status * still unresponsive (5) Stroke: Code(s): I63.9 - Cerebral infarction, unspecified Status: Acute Assessment and Plan: * as noted by repeat CT of head on 01/11: * Extensive bilateral acute infarcts in the expected distributions of the bilateral middle cerebral arteries. * presumably secondary to hypotension * Echo did not show any thrombus or ASD * remains unresponsive at this time (6) Anemia: Code(s): D64.9 - Anemia, unspecified Status: Acute Assessment and Plan: * noted drop in H/H by labs on 01/16 * was on heparin gtt for left LE DVT (but off now) * PRBC transfusion per protocol * ALICE with dialysis * follow trend of H/H (7) Deep vein thrombosis of left lower extremity: Code(s): I82.402 - Acute embolism and thrombosis of unspecified deep veins of left lower extremity Status: Acute Assessment and Plan: * as noted by LE dopplers * s/p IVC filter placement on 01/18/24 (8) Insulin dependent diabetes mellitus: Status: Chronic Assessment and Plan: * follow accu-checks * glycemic control per hospitalists/ham boner Will continue to follow. Subjective Date/time seen: 01/23/24 08:48 Interval history: Follow-up for acute kidney injury/acute renal failure (on chronic kidney disease?). Just started dialysis treatment on my visit (seen on HD at 8:35AM); no real significant change noted -- unresponsive but in no apparent distress; remains intubated and on ventilator support; stable hemodynamics noted; fever curve is better with improvement in general. Exam Narrative: General: somewhat ill appearing female intubated and on mechanical ventilation Heart: normal S1 and S2; no rub Lungs: coarse breath sounds bilaterally Abdomen: soft, nontender, nondistended, positive bowel sounds Extremities: no cyanosis or clubbing; no edema Skin: no nodules Objective Data Vital Signs Vital Signs: Vital Signs Temp Pulse Resp BP Pulse Ox O2 Del Method FiO2 01/23/24 08:00 99.0 F 90 13 129/64 100 01/23/24 07:25 91 100 Mechanical Ventilation 01/23/24 06:00 99 F 84 13 121/61 100 01/23/24 06:00 85 01/23/24 05:44 86 100 Mechanical Ventilation 01/23/24 04:00 99.5 F 89 13 145/65 H 100 01/23/24 04:00 21 01/23/24 04:00 100 Mechanical Ventilation 01/23/24 04:00 89 01/23/24 02:36 90 100 Mechanical Ventilation 01/23/24 02:00 99.2 F 86 13 156/67 H 100 01/23/24 02:00 86 01/23/24 01:00 136/63 01/23/24 00:00 95 01/22/24 22:00 93 01/22/24 20:00 87 01/23/24 00:00 99.6 F 96 17 170/70 H 100 01/23/24 00:00 21 01/23/24 00:00 100 Mechanical Ventilation 21 01/23/24 00:05 91 01/22/24 23:16 92 100 Mechanical Ventilation 21 01/22/24 22:00 99.7 F H 93 14 149/64 H 100 01/22/24 20:00 99.7 F H 87 13 145/63 H 100 01/22/24 20:00 21 01/22/24 20:00 100 Mechanical Ventilation 21 01/22/24 20:34 89 100 Mechanical Ventilation 21 01/22/24 19:30 99.7 F H 96 14 166/69 H 100 01/22/24 19:28 96 01/22/24 18:00 86 01/22/24 16:00 99 01/22/24 18:00 99.6 F 95 12 153/68 H 95 01/22/24 17:49 97 100 Mechanical Ventilation 21 01/22/24 16:00 100 Mechanical Ventilation 21 01/22/24 16:00 21 01/22/24 16:00 99.1 F 98 12 158/70 H 100 01/22/24 14:00 100 01/22/24 14:00 98.8 F 100 12 163/70 H 97 01/22/24 15:13 97 100 Mechanical Ventilation 21 01/22/24 12:00 85 01/22/24 12:00 99 F 86 21 H 154/64 H 100 01/22/24 12:00 21 01/22/24 12:00 100 Mechanical Ventilation 21 01/22/24 11:21 84 156/62 H Intake/Output Intake/Output: Intake & Output 01/20/24 01/21/24 01/22/24 01/23/24 23:59 23:59 23:59 23:59 Intake Total 1892 1853 1856 545 Output Total 360 80 320 225 Balance 1532 1773 1536 320 Meds/Results Medications: Active Medications Generic Name Dose Route Start Last Admin Trade Name Freq PRN Reason Stop Dose Admin Acetaminophen 650 mg 01/10/24 08:02 01/20/24 16:00 Acetaminophen 325 Mg Tablet FEED TUBE 650 mg Q6H PRN Administration Mild Pain (1-3) or Fever Alteplase, Recombinant 2 mg 01/23/24 09:15 01/23/24 09:57 Alteplase 2 Mg Vial (Cathflo) IV PUSH 2 mg ONCE PRN Administration Line Occlusion Alteplase, Recombinant 2 mg 01/23/24 09:15 Alteplase 2 Mg Vial (Cathflo) IV PUSH ONCE PRN Line Occlusion Amlodipine Besylate 10 mg 01/22/24 08:50 01/23/24 10:23 Amlodipine Besylate 10 Mg Tablet FEED TUBE Not Given DAILY CARMELA Aspirin 325 mg 01/12/24 16:00 01/17/24 08:43 Aspirin 325 Mg Tablet FEED TUBE 325 mg DAILY@0800 CARMELA Administration Atorvastatin Calcium 40 mg 01/13/24 09:00 01/23/24 07:58 Atorvastatin 40 Mg Tablet FEED TUBE 40 mg DAILY CARMELA Administration Dextrose 12.5 gm 01/07/24 13:18 Dextrose 50% 25 Gm/50 Ml Syringe IV PUSH PRN PRN Hypoglycemia Protocol Epoetin Dane-epbx 10,000 units 01/12/24 09:20 01/22/24 09:27 Epoetin Dane-Epbx 10,000 Units/Ml Vial SUB-Q 10,000 units MOWEFR@09 CARMELA Administration Epoetin Dane-epbx 10,000 units 01/23/24 20:00 Epoetin Dane-Epbx 10,000 Units/Ml Vial IV PUSH 01/23/24 20:01 ONCE ONE Glucagon 1 mg 01/07/24 13:18 Glucagon For Inj 1 Mg Vial IM PRN PRN Hypoglycemia Protocol Glucose 15 gm 01/07/24 13:18 Glucose Oral Gel 15 Gm Of Glucse In 37.5 Gm Tube PO PRN PRN Hypoglycemia Protocol Hydralazine HCl 10 mg 01/18/24 02:20 01/18/24 05:40 Hydralazine 10 Mg Tablet PO Not Given Q6HR CARMELA Dextrose 1,000 mls @ 100 mls/hr 01/07/24 13:18 Dextrose 5% 1,000 Ml IVPB PRN PRN Hypoglycemia Protocol Albumin Human 50 mls @ 999 mls/hr 01/07/24 17:11 01/12/24 10:30 Albutein IVPB 02/06/24 17:10 Infused Q10M PRN Infusion HYPOTENSION Levetiracetam 500 mg in 100 mls @ 400 mls/hr 01/07/24 21:00 01/22/24 20:49 Keppra Iv IVPB Infused Q24H CARMELA Infusion Micafungin Sodium 100 mg/ 100 mls @ 100 mls/hr 01/20/24 16:00 01/22/24 17:42 Sodium Chloride IVPB Infused Q24H CARMELA Infusion Meropenem 500 mg in 100 mls @ 200 mls/hr 01/22/24 18:00 01/22/24 19:58 IVPB Infused Q24H CARMELA Infusion Vancomycin HCl 750 mg in 250 mls @ 250 mls/hr 01/23/24 12:00 Vancomycin 750 Mg/Ns 250 Ml IVPB 01/23/24 12:59 ONCE ONE Insulin Aspart 4 - 8 units 01/10/24 07:55 01/23/24 07:59 Insulin Aspart (*Bkc) 100 Units/Ml SUB-Q 4 units Q4H CARMELA Administration Protocol Insulin Glargine 95 units 01/23/24 09:00 01/23/24 08:00 Insulin Glargine (*Bkc) 100 Units/Ml SUB-Q 95 units Q12H CARMELA Administration Labetalol HCl 10 mg 01/18/24 08:37 01/23/24 00:05 Labetalol Hcl Inj 100 Mg/20 Ml Vial IV PUSH 10 mg Q4H PRN Administration Hypertension Metoprolol Tartrate 100 mg 01/16/24 09:00 01/17/24 08:43 Metoprolol Tartrate 50 Mg Tab FEED TUBE 100 mg Q12HR CARMELA Administration Multi-Ingred Cream/Lotion/Oil/Oint 1 applic 01/07/24 21:00 01/23/24 08:01 Mineral Oil/White Petrolatum Ointment EACH EYE 1 applic Q12HR CARMELA Administration Pantoprazole Sodium 40 mg 01/07/24 21:00 01/23/24 07:58 Pantoprazole Sodium Iv 40 Mg Vial IV PUSH 40 mg Q12HR CARMELA Administration Vancomycin HCl 1 each 01/20/24 14:59 Vancomycin For Hemodialysis IVPB PRN PRN Vancomycin Protocol Radiology Results: ITS Impressions Abdomen/Pelvis CT 01/07/24 16:52 IMPRESSION: No acute abdominopelvic process. Specifically, there is no CT evidence of bowel obstruction. No definite evidence of renal injury, noting that low-grade renal injury as can be difficult to detect without contrast. Renal Ultrasound 01/08/24 10:47 IMPRESSION: 1. Normal kidney sizes. No hydronephrosis. Chest/Abdomen/Pelvis CT 01/12/24 15:08 IMPRESSION: Interval enlargement of the liver, when compared with previous examination. Flattening of the inferior vena cava suggesting severe hypovolemia. Interval development of basilar atelectasis and trace bilateral pleural effusions. No additional findings which represents a change from prior examination performed 01/07/2024. Supportive devices are in good position. Redemonstration of multiple stones within the gallbladder which is not distended. Head CT 01/12/24 15:31 IMPRESSION: 1. 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 2. Large distribution of chronic encephalomalacia in the expected distribution of left middle cerebral artery. Abdomen Ultrasound 01/13/24 09:31 IMPRESSION: 1. Cholelithiasis. 2. Normal liver Doppler. Arterial/Peripheral Duplex 01/13/24 09:31 IMPRESSION: 1. Cholelithiasis. 2. Normal liver Doppler. Venous Doppler Study 01/15/24 17:14 IMPRESSION: 1. Deep vein thrombosis involving left common femoral vein. ADDENDUM: 01/15/24 [id number] I called this result to Apurva Mclean. Abdomen X-Ray 01/16/24 06:03 Impression: NG tube in satisfactory position. IVC Filter Placement X-Ray 01/20/24 06:18 IMPRESSION: Fluoroscopy used during IVC filter insertion. Chest X-Ray 01/23/24 06:09 IMPRESSION: 1. Stable mild atelectasis at left lung base. Labs Labs: Laboratory Tests 01/23/24 03:00 01/23/24 03:00 Calcium 8.8 Phosphorus 4.6 H Magnesium 2.9 H Total Bilirubin 0.5 AST 32 ALT 23 Alkaline Phosphatase 97 Total Protein 6.0 L Albumin 3.1 L Random Vancomycin 18.7 Microbiology 01/22/24 08:00 Blood Blood Culture - Preliminary 01/22/24 08:05 Blood Blood Culture - Preliminary 01/19/24 08:11 Blood Blood Culture - Preliminary Staphylococcus epidermidis 01/19/24 20:21 Sputum Sputum Culture - Final Yeast Present
--- NOTE | 2024-01-23 09:54 | P.PNINT_ITS ---
Progress Note: A&P Assessment and Plan (1) Septic shock: Code(s): A41.9 - Sepsis, unspecified organism; R65.21 - Severe sepsis with septic shock Status: Acute Assessment and Plan: RESOLVED Patient hypotensive on presentation Patient was given IV fluid bolus followed by maintenance IV fluids -lactic acid has improved -Levophed weaned off -off IV fluids -source appears to be UTI. Urine and blood cultures are negative till now, STATUS POST CEFTRIAXONE -status post stress dose steroids - 01/10 continues to have fever although other markers of infection are improved as normal WBC. 01/10: Repeat blood cultures are negative x2 Clark catheter change 01/11 Minimal respiratory secretions, sputum cultures growing yeast which is likely a colonization Change Rocephin to cefepime and vancomycin 01/14: Patient continues to have low-grade fever but overall fever curve is down. White count is normal. CT scan of chest and pelvis does not show any area suggestive of infection. Clark catheter was changed. Procalcitonin level is also on the lower side. Continue cefepime but will discontinue vancomycin at this time. Cultures are negative till now. -lipase was within normal limits -01/15/2024: lower extremity venous Dopplers: Left common femoral vein DVT -01/14: patient was started on heparin infusion OFF all abx 01/18: Remains febrile, patient has been carl cultured this morning, WBC trending up -chest x-ray is not show any new infiltrates -holding antibiotics for now, if patient continues to spike fevers and WBC count increase tomorrow will add antibiotics 01/18: Blood culture growing Gram-positive cocci in clusters 1/2 bottles 01/18: Urine cultures growing Tatiana albicans 01/18: Sputum cultures growing Yeast 01/19: Patient remained febrile with T-max of 101.3. Patient was started on vancomycin, meropenem and micafungin (01/19) Fever curve improving since starting antibiotics, continue antibiotics and antifungals as above (2) Stroke: Code(s): I63.9 - Cerebral infarction, unspecified Status: Acute Assessment and Plan: Patient presented with altered mental status but at that time patient was respiratory failure acute renal failure acidosis and sepsis. CT scan on presen tation showed only old stroke and encephalomalacia Since then patient has not woken up despite holding sedation for multiple days and dialysis. 10/[address] was done which showed. 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 These are likely secondary to hypotension Echo did not show any thrombus or ASD Continue aspirin and statin Neurology following EEG 01/12 - This is an abnormal EEG due to presence of moderate diffuse background slowing suggested generalized cephalopathy. No significant change in neurological status (3) Encephalopathy: Code(s): G93.40 - Encephalopathy, unspecified Status: Acute Assessment and Plan: Patient presented with encephalopathy, altered mental status, delirium, confusio n -most likely related to uremia, infection, severe acidosis and baseline flow malacia from past stroke TSH and ammonia normal Patient has been off sedation since 01/09/2024. Still not responsive.. Will continue hold sedatives. EEG as above Patient was dialyzed 01/11 to help with drug removal. Minimal improved Encephalopathy likely secondary to strokes. See above. Neurology following -patient has been off sedation since 01/09/2024, has not woken up -01/16: Ammonia levels are normal 01/11: Repeat CT scan of the brain IMPRESSION: 1. 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 2. Large distribution of chronic encephalomalacia in the expected distribution of left middle cerebral artery. 01/06: CT brain on admission IMPRESSION: 1. No acute intracranial process. 2. 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 3. Additional more diffuse likely age-related mild to moderate diffuse volume loss and mild scattered white matter hypoattenuation consistent with chronic small vessel ischemic disease. (4) Acute respiratory failure: Code(s): J96.00 - Acute respiratory failure, unspecified whether with hypoxia or hypercap antwan Status: Acute Assessment and Plan: Patient had an episode of emesis in the ER, given her altered mental status encephalopathy, risk of aspiration with impending respiratory failure patient was intubated on 01/06/2025 -chest x-ray and ABG reviewed -patient currently on ASV mode of ventilation, peep of 5, 21% FiO2 and tolerating -sedation is on hold since 01/09/2024 -weaning will depend on improvement in mental status. (5) Acute kidney failure: Code(s): N17.9 - Acute kidney failure, unspecified Status: Acute Assessment and Plan: On chronic kidney injury, unknown cause, CT of the abdomen and pelvis did not show any hydronephrosis or urinary obstruction -significant lactic acidosis and metabolic acidosis -patient has a history of diabetes, hypertension which is likely the cause of chronic kidney disease -patient on lisinopril hydrochlorothiazide and metformin at home -patient was given a total of 3 L IV fluid bolus, 1 L in the ER and 2 L in the ICU -sodium bicarb IV pushes x4 in the ICU -patient was started on sodium bicarb infusion after discussing with Nephrology, which her was discontinued once hemodialysis was started -patient was started on hemodialysis and was dialyzed x 3 days -patient continues to have decent urine output - 01/11 patient was dialyzed again 1 L fluid was removed -continue to monitor urine output, electrolytes and renal function -01/16: worsening creatinine, increased edema, decreased urine output. Discussed with Nephrology, patient will dialyzed - 01/22 plan to dialyze again patient today (6) Metabolic acidosis: Code(s): E87.20 - Acidosis, unspecified Status: Acute Assessment and Plan: RESOLVED Patient presented with significant metabolic acidosis and lactic acidosis. This could be combination of septic shock, acute kidney injury but also a possibility of metformin toxicity Patient received hemodialysis and IV bicarb. Acidosis has resolved. Further dialysis per Nephrology (7) Diastolic dysfunction: Code(s): I51.89 - Other ill-defined heart diseases Status: Acute Assessment and Plan: Echo 01/11 Summary 1. Left ventricular systolic function is normal, estimated at 60-65%. 2. There is moderately increased left ventricular wall thickness. 3. Intact interatrial septum visualized by agitated saline imaging. 4. There is mild aortic valve calcification. 5. There is mild aortic valve stenosis with a peak velocity of 190 cm/s,mean gradient of 8 mmHg, and aortic valve area of 1.8 cm2. 6. There is mild tricuspid valve regurgitation. 7. Mild pulmonary hypertension, estimated pulmonary arterial systolicpressure is 46 mmHg. (8) Insulin dependent diabetes mellitus: Status: Chronic Assessment and Plan: Continue sliding scale insulin Accu-Cheks Lantus dose increased (9) Right hemiparesis: Code(s): G81.91 - Hemiplegia, unspecified affecting right dominant side Status: Acute Assessment and Plan: History of left-sided cerebral hemisphere and CVA, residual mild aphasia and right-sided weakness (10) Seizures: Code(s): R56.9 - Unspecified convulsions Status: Acute Assessment and Plan: Patient has a history of seizures, on p.o. Keppra 500 mg p.o. q.12 hours Continue Keppra IV 500 mg IV q.24 (discuss with pharmacist) EEG negative for any seizure-like activity (11) Hypertension: Code(s): I10 - Essential (primary) hypertension Status: Acute Assessment and Plan: Blood pressures have been labile, will hold metoprolol, hydralazine and amlodipine for now -patient has p.r.n. labetalol -01/21: patient has been requiring multiple doses of p.r.n. labetalol as blood pressures are elevated, will restart amlodipine (12) Anemia: Code(s): D64.9 - Anemia, unspecified Status: Acute Assessment and Plan: 01/16: Patient has been on heparin infusion for DVT in the right common femoral vein. Dropped hemoglobin this morning to 6.7 from 7.8. - heparin infusion Discontinued -stool for Hemoccult was Negative -01/17: IVC filter placement by surgery Hemoglobin stable. Monitor Plan DVT prophylaxis: Hold heparin infusion due to anemia, continue SCDs Stress ulcer prophylaxis: Protonix IV q.12 hours Nutrition: Continue tube feeds Code Status: Patient is DNR at this time with family planning to palliatively extubate and proceed with comfort care only once her sister arrived from [place] 01/20/2024: Dr. Sinha discussed with sons Hakan and June, Danuta in the conference room this afternoon. I discussed with them at length regarding patient's medical condition and problems from the time she came to the hospital. They are aware that she has had multiple strokes, encephalopathy and not waking up since her sedation has been turned off on 01/09/2024. She is in renal failure requiring intermittent dialysis, has a DVT with IVC filters, anemia. The and the sons stated that they do not want the patient to get tracheostomy or the PEG tube. And they want to make her comfortable but requested if he could wait for 1 week since patient's sister was very close to her will be traveling from [place] to see her. They will keep us posted on her arrival. In the meantime patient remains DNR which was reiterated and acceptable to the and the sons. Bedside RN Anali and personal carer Ericka were present during the family meeting. Critical Care Time Spent: 30 minutes Due to a high probability of clinically significant, life threatening deterioration, the patient required my highest level of preparedness to inte rvene emergently and I personally spent this critical care time directly and personally managing the patient. This critical care time included obtaining a history; examining the patient; pulse oximetry; ordering and review of studies; arranging urgent treatment with development of a management plan; evaluation of patient's response to treatment; frequent reassessment; and discussions with other providers. It was exclusive of separately billable procedures and treating other patients and teaching time. Please see Assessment and Plan section and the rest of the note for further information on patient assessment and treatment This dictation may have been done utilizing a voice recognition system. Attempts have been made to correct errors. However, there may be uncorrected grammatical, spelling, and recognitions errors present. Subjective Date/time seen: 01/23/24 Overnight events reviewed. Afebrile Continues to be on mechanical ventilation 21% FiO2 No significant change in mental status Not on any sedation Other Vitals acceptable Tolerating tube feeds Review of Systems Review of Systems: ROS unobtainable: Yes unobtainable due to endotracheal tube, unobtainable due to medical condition and unobtainable due to mental status Exam Narrative: General: Intubated and sedated HEENT:? Pupils are equal and reactive to light, patient has positive corneal reflex, sclera is clear, ETT in place, facial puffiness noted Neck:? Supple, right IJ dialysis catheter in place Respiratory:? Coarse breath sounds bilaterally, decreased at bases no wheezing, adequate air entry Cardiac:? S1-S2 normal, regular rate and rhythm, Abdomen:? Soft, nontender, nondistended, hypoactive bowel sounds, old midline surgical scar noted Extremities:? Dry skin, decreased pedal pulses, pitting edema bilateral upper and lower extremities Neuro:? Patient is intubated, off sedation, PERRL, patient withdraws to pain stimulus in bilateral lower extremities, decerebrate posturing of the upper extremities on pain stimuli. Skin:? Dry and flaky skin on lower extremities, skin is warm Psych:? Unable to assess at this time Objective Data Vital Signs Vital Signs: Vital Signs - 24 hr 01/22/24 10:00 01/22/24 10:00 01/22/24 10:00 Temperature 37.2 C Pulse Rate 91 84 92 Respiratory Rate 14 Blood Pressure 156/62 H 162/68 H Pulse Oximetry 100 Oxygen Delivery Fraction of Inspired Oxygen 01/22/24 10:30 01/22/24 10:44 01/22/24 11:21 Temperature Pulse Rate 97 88 84 Respiratory Rate Blood Pressure 170/65 H 156/62 H Pulse Oximetry 100 Oxygen Delivery Mechanical Ventilation Fraction of Inspired Oxygen 21 01/22/24 12:00 01/22/24 12:00 01/22/24 12:00 Temperature 37.2 C Pulse Rate 86 Respiratory Rate 21 H Blood Pressure 154/64 H Pulse Oximetry 100 100 Oxygen Delivery Mechanical Ventilation Fraction of Inspired Oxygen 21 21 01/22/24 12:00 01/22/24 15:13 01/22/24 14:00 Temperature 37.1 C Pulse Rate 85 97 100 Respiratory Rate 12 Blood Pressure 163/70 H Pulse Oximetry 100 97 Oxygen Delivery Mechanical Ventilation Fraction of Inspired Oxygen 21 01/22/24 14:00 01/22/24 16:00 01/22/24 16:00 Temperature 37.3 C Pulse Rate 100 98 Respiratory Rate 12 Blood Pressure 158/70 H Pulse Oximetry 100 Oxygen Delivery Fraction of Inspired Oxygen 21 01/22/24 16:00 01/22/24 17:49 01/22/24 18:00 Temperature 37.6 C Pulse Rate 97 95 Respiratory Rate 12 Blood Pressure 153/68 H Pulse Oximetry 100 100 95 Oxygen Delivery Mechanical Ventilation Mechanical Ventilation Fraction of Inspired Oxygen 21 21 01/22/24 16:00 01/22/24 18:00 01/22/24 19:28 Temperature Pulse Rate 99 86 96 Respiratory Rate Blood Pressure Pulse Oximetry Oxygen Delivery Fraction of Inspired Oxygen 01/22/24 19:30 01/22/24 20:34 01/22/24 20:00 Temperature 37.6 C H Pulse Rate 96 89 Respiratory Rate 14 Blood Pressure 166/69 H Pulse Oximetry 100 100 100 Oxygen Delivery Mechanical Ventilation Mechanical Ventilation Fraction of Inspired Oxygen 21 21 01/22/24 20:00 01/22/24 20:00 01/22/24 22:00 Temperature 37.6 C H 37.6 C H Pulse Rate 87 93 Respiratory Rate 13 14 Blood Pressure 145/63 H 149/64 H Pulse Oximetry 100 100 Oxygen Delivery Fraction of Inspired Oxygen 21 01/22/24 23:16 01/23/24 00:05 01/23/24 00:00 Temperature Pulse Rate 92 91 Respiratory Rate Blood Pressure Pulse Oximetry 100 100 Oxygen Delivery Mechanical Ventilation Mechanical Ventilation Fraction of Inspired Oxygen 21 21 01/23/24 00:00 01/23/24 00:00 01/22/24 20:00 Temperature 37.6 C Pulse Rate 96 87 Respiratory Rate 17 Blood Pressure 170/70 H Pulse Oximetry 100 Oxygen Delivery Fraction of Inspired Oxygen 21 01/22/24 22:00 01/23/24 00:00 01/23/24 01:00 Temperature Pulse Rate 93 95 Respiratory Rate Blood Pressure 136/63 Pulse Oximetry Oxygen Delivery Fraction of Inspired Oxygen 01/23/24 02:00 01/23/24 02:00 01/23/24 02:36 Temperature 37.3 C Pulse Rate 86 86 90 Respiratory Rate 13 Blood Pressure 156/67 H Pulse Oximetry 100 100 Oxygen Delivery Mechanical Ventilation Fraction of Inspired Oxygen 21 01/23/24 04:00 01/23/24 04:00 01/23/24 04:00 Temperature Pulse Rate 89 Respiratory Rate Blood Pressure Pulse Oximetry 100 Oxygen Delivery Mechanical Ventilation Fraction of Inspired Oxygen 21 01/23/24 04:00 01/23/24 05:44 01/23/24 06:00 Temperature 37.5 C Pulse Rate 89 86 85 Respiratory Rate 13 Blood Pressure 145/65 H Pulse Oximetry 100 100 Oxygen Delivery Mechanical Ventilation Fraction of Inspired Oxygen 21 01/23/24 06:00 01/23/24 07:25 01/23/24 08:00 Temperature 37.2 C 37.2 C Pulse Rate 84 91 90 Respiratory Rate 13 13 Blood Pressure 121/61 129/64 Pulse Oximetry 100 100 100 Oxygen Delivery Mechanical Ventilation Fraction of Inspired Oxygen 21 01/23/24 08:00 01/23/24 08:00 01/23/24 08:00 Temperature Pulse Rate 89 89 Respiratory Rate Blood Pressure Pulse Oximetry 100 Oxygen Delivery Mechanical Ventilation Fraction of Inspired Oxygen 21 Intake/Output Intake/Output: Intake & Output 01/20/24 01/21/24 01/22/24 01/23/24 23:59 23:59 23:59 23:59 Intake Total 1892 1853 1856 545 Output Total 360 80 320 225 Balance 1532 1773 1536 320 Meds/Results Medications: Active Medications Generic Name Dose Route Start Last Admin Trade Name Freq PRN Reason Stop Dose Admin Acetaminophen 650 mg 01/10/24 08:02 01/20/24 16:00 Acetaminophen 325 Mg Tablet FEED TUBE 650 mg Q6H PRN Administration Mild Pain (1-3) or Fever Alteplase, Recombinant 2 mg 01/23/24 09:15 Alteplase 2 Mg Vial (Cathflo) IV PUSH ONCE PRN Line Occlusion Alteplase, Recombinant 2 mg 01/23/24 09:15 Alteplase 2 Mg Vial (Cathflo) IV PUSH ONCE PRN Line Occlusion Amlodipine Besylate 10 mg 01/22/24 08:50 01/22/24 09:26 Amlodipine Besylate 10 Mg Tablet FEED TUBE 10 mg DAILY CARMELA Administration Aspirin 325 mg 01/12/24 16:00 01/17/24 08:43 Aspirin 325 Mg Tablet FEED TUBE 325 mg DAILY@0800 CARMELA Administration Atorvastatin Calcium 40 mg 01/13/24 09:00 01/23/24 07:58 Atorvastatin 40 Mg Tablet FEED TUBE 40 mg DAILY CARMELA Administration Dextrose 12.5 gm 01/07/24 13:18 Dextrose 50% 25 Gm/50 Ml Syringe IV PUSH PRN PRN Hypoglycemia Protocol Epoetin Dane-epbx 10,000 units 01/12/24 09:20 01/22/24 09:27 Epoetin Dane-Epbx 10,000 Units/Ml Vial SUB-Q 10,000 units MOWEFR@09 CARMELA Administration Epoetin Dane-epbx 10,000 units 01/23/24 20:00 Epoetin Dane-Epbx 10,000 Units/Ml Vial IV PUSH 01/23/24 20:01 ONCE ONE Glucagon 1 mg 01/07/24 13:18 Glucagon For Inj 1 Mg Vial IM PRN PRN Hypoglycemia Protocol Glucose 15 gm 01/07/24 13:18 Glucose Oral Gel 15 Gm Of Glucse In 37.5 Gm Tube PO PRN PRN Hypoglycemia Protocol Hydralazine HCl 10 mg 01/18/24 02:20 01/18/24 05:40 Hydralazine 10 Mg Tablet PO Not Given Q6HR CARMELA Dextrose 1,000 mls @ 100 mls/hr 01/07/24 13:18 Dextrose 5% 1,000 Ml IVPB PRN PRN Hypoglycemia Protocol Albumin Human 50 mls @ 999 mls/hr 01/07/24 17:11 01/12/24 10:30 Albutein IVPB 02/06/24 17:10 Infused Q10M PRN Infusion HYPOTENSION Levetiracetam 500 mg in 100 mls @ 400 mls/hr 01/07/24 21:00 01/22/24 20:49 Keppra Iv IVPB Infused Q24H CARMELA Infusion Micafungin Sodium 100 mg/ 100 mls @ 100 mls/hr 01/20/24 16:00 01/22/24 17:42 Sodium Chloride IVPB Infused Q24H CARMELA Infusion Meropenem 500 mg in 100 mls @ 200 mls/hr 01/22/24 18:00 01/22/24 19:58 IVPB Infused Q24H CARMELA Infusion Vancomycin HCl 750 mg in 250 mls @ 250 mls/hr 01/23/24 12:00 Vancomycin 750 Mg/Ns 250 Ml IVPB 01/23/24 12:59 ONCE ONE Insulin Aspart 4 - 8 units 01/10/24 07:55 01/23/24 07:59 Insulin Aspart (*Bkc) 100 Units/Ml SUB-Q 4 units Q4H CARMELA Administration Protocol Insulin Glargine 95 units 01/23/24 09:00 01/23/24 08:00 Insulin Glargine (*Bkc) 100 Units/Ml SUB-Q 95 units Q12H CARMELA Administration Labetalol HCl 10 mg 01/18/24 08:37 01/23/24 00:05 Labetalol Hcl Inj 100 Mg/20 Ml Vial IV PUSH 10 mg Q4H PRN Administration Hypertension Metoprolol Tartrate 100 mg 01/16/24 09:00 01/17/24 08:43 Metoprolol Tartrate 50 Mg Tab FEED TUBE 100 mg Q12HR CARMELA Administration Multi-Ingred Cream/Lotion/Oil/Oint 1 applic 01/07/24 21:00 01/23/24 08:01 Mineral Oil/White Petrolatum Ointment EACH EYE 1 applic Q12HR CARMELA Administration Pantoprazole Sodium 40 mg 01/07/24 21:00 01/23/24 07:58 Pantoprazole Sodium Iv 40 Mg Vial IV PUSH 40 mg Q12HR CARMELA Administration Vancomycin HCl 1 each 01/20/24 14:59 Vancomycin For Hemodialysis IVPB PRN PRN Vancomycin Protocol Radiology Results: ITS Impressions Abdomen/Pelvis CT 01/07/24 16:52 IMPRESSION: No acute abdominopelvic process. Specifically, there is no CT evidence of bowel obstruction. No definite evidence of renal injury, noting that low-grade renal injury as can be difficult to detect without contrast. Renal Ultrasound 01/08/24 10:47 IMPRESSION: 1. Normal kidney sizes. No hydronephrosis. Chest/Abdomen/Pelvis CT 01/12/24 15:08 IMPRESSION: Interval enlargement of the liver, when compared with previous examination. Flattening of the inferior vena cava suggesting severe hypovolemia. Interval development of basilar atelectasis and trace bilateral pleural effusions. No additional findings which represents a change from prior examination performed 01/07/2024. Supportive devices are in good position. Redemonstration of multiple stones within the gallbladder which is not distended. Head CT 01/12/24 15:31 IMPRESSION: 1. 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 2. Large distribution of chronic encephalomalacia in the expected distribution of left middle cerebral artery. Abdomen Ultrasound 01/13/24 09:31 IMPRESSION: 1. Cholelithiasis. 2. Normal liver Doppler. Arterial/Peripheral Duplex 01/13/24 09:31 IMPRESSION: 1. Cholelithiasis. 2. Normal liver Doppler. Venous Doppler Study 01/15/24 17:14 IMPRESSION: 1. Deep vein thrombosis involving left common femoral vein. ADDENDUM: 01/15/24 4500 I called this result to Apurva Mclean. Abdomen X-Ray 01/16/24 06:03 Impression: NG tube in satisfactory position. IVC Filter Placement X-Ray 01/20/24 06:18 IMPRESSION: Fluoroscopy used during IVC filter insertion. Chest X-Ray 01/23/24 06:09 IMPRESSION: 1. Stable mild atelectasis at left lung base. Labs Labs: Laboratory Results - last 24 hr 01/22/24 01/22/24 01/22/24 10:40 15:49 19:34 WBC RBC Hgb Hct MCV MCH MCHC RDW Plt Count MPV Immature Gran % (Auto) Neut % (Auto) Lymph % (Auto) [place] % (Auto) Eos % (Auto) Baso % (Auto) Lymph # (Auto) [place] # (Auto) Eos # (Auto) Baso # (Auto) Abs Immat Gran (auto) Absolute Neuts (auto) Absolute Nucleated RBC Nucleated RBC % Platelet Estimate Anisocytosis Macrocytosis Ovalocytes [place] Cells Schistocytes Sodium Potassium Chloride Carbon Dioxide Anion Gap BUN Creatinine Estim Creat Clear Calc Estimated GFR Glucose POC Capillary Glucose 377 H 344 H 333 H Calcium Phosphorus Magnesium Total Bilirubin AST ALT Alkaline Phosphatase Total Protein Albumin Random Vancomycin 01/22/24 01/23/24 01/23/24 23:52 01:00 03:00 WBC 12.0 H RBC 2.70 L Hgb 7.8 L Hct 27.4 L MCV 101.5 H MCH 28.9 MCHC 28.5 L RDW 18.2 H Plt Count 396 H MPV 12.3 H Immature Gran % (Auto) 1.2 H Neut % (Auto) 76.5 H Lymph % (Auto) 10.4 L [place] % (Auto) 9.1 H Eos % (Auto) 2.1 Baso % (Auto) 0.7 Lymph # (Auto) 1.25 [place] # (Auto) 1.1 H Eos # (Auto) 0.3 Baso # (Auto) 0.1 Abs Immat Gran (auto) 0.15 H Absolute Neuts (auto) 9.2 H Absolute Nucleated RBC 0.000 Nucleated RBC % 0.0 Platelet Estimate Slightly increased Anisocytosis 1+ Macrocytosis 1+ Ovalocytes 1+ [place] Cells 1+ Schistocytes None seen Sodium 137 137 Potassium 4.2 4.3 Chloride 103 102 Carbon Dioxide 23 21 L Anion Gap 11 14 H BUN 139 H D 144 H Creatinine 6.30 H 6.20 H Estim Creat Clear Calc 10 10 Estimated GFR 7 L 7 L Glucose 299 H 281 H POC Capillary Glucose 259 H Calcium 8.7 8.8 Phosphorus 4.4 4.6 H Magnesium 2.7 H 2.9 H Total Bilirubin 0.5 AST 32 ALT 23 Alkaline Phosphatase 97 Total Protein 6.0 L Albumin 3.1 L Random Vancomycin 18.7 01/23/24 01/23/24 04:23 07:50 WBC RBC Hgb Hct MCV MCH MCHC RDW Plt Count MPV Immature Gran % (Auto) Neut % (Auto) Lymph % (Auto) [place] % (Auto) Eos % (Auto) Baso % (Auto) Lymph # (Auto) [place] # (Auto) Eos # (Auto) Baso # (Auto) Abs Immat Gran (auto) Absolute Neuts (auto) Absolute Nucleated RBC Nucleated RBC % Platelet Estimate Anisocytosis Macrocytosis Ovalocytes [place] Cells Schistocytes Sodium Potassium Chloride Carbon Dioxide Anion Gap BUN Creatinine Estim Creat Clear Calc Estimated GFR Glucose POC Capillary Glucose 247 H 247 H Calcium Phosphorus Magnesium Total Bilirubin AST ALT Alkaline Phosphatase Total Protein Albumin Random Vancomycin
[2024-01-23] MEDS: ALTEPLASE 2 MG VIAL (CATHFLO) IV PUSH ×2 (09:56→09:57)
--- NOTE | 2024-01-23 10:33 | PCNFU ---
Nutrition Follow-Up Complete: Inadequate energy intake related to mechanical ventilation, increased needs from dialysis as evidenced by need for full tube feeding Goal: Meet estimated nutrition needs Patient is meeting goal. No new goal. Pt current nutrition is Nepro at 50 ml/hr. Last recorded weight is 80.9 kg, stable. Bowel Motility: FMS-less output reported by nursing. Labs Reviewed: Glu 281, GFR 7, BUN 144, Cr 6.2 Meds Noted: Keppra, Lantus, Lopressor, Protonix, NovoLog. Skin: WNL Additional Notes: Patient remains on mechanical vent. Tube feedings are being tolerated of Nepro at 50 ml/hr with flush 50 ml flush q 4 hours. Tube feedings providing 1980 kcal/89 gm protein. Dialysis is planned for today. Agree with diet orders. Monitoring tube feeding tolerance, labs, weights, output, plan of care Follow up daily in rounds, reassess Monday and Monday
[2024-01-23 12:01] LABS: Glucose Point of Care 237 mg/dl (65-105)
[2024-01-23] MEDS: HEPARIN SODIUM 1,000 UNITS/ML VIAL 6000 UNITS (14:00)
--- NOTE | 2024-01-23 14:54 | PC.NURSE ---
car icer had difficulty running treatment this morning around 0800. [employer] Estimator assessed lumens at bedside. Cathflo ordered and administered for the manufacturers recommended dwell time (see MAR). Withdrawal of cathflo from both lumens, anterior positioned lumen showed hesitancy to pull blood, but eventually aspirated 5 ml of blood easily but suddenly stopped. The same assessment was observed with a new syringe, initally pulling 5 ml of blood with no resistance to stopping completely. [employer] Estimator notified and at bedside. Okay'd to attempt hemodialysis if the line allows the treatment to be completed. If not, may need hemodialysis line exchanged tomorrow morning.
--- NOTE | 2024-01-23 16:02 | P.PNIM_ITS ---
Progress Note: A&P Assessment and Plan (1) Septic shock: Code(s): A41.9 - Sepsis, unspecified organism; R65.21 - Severe sepsis with septic shock Status: Acute Assessment and Plan: RESOLVED Patient hypotensive on presentation Patient was given IV fluid bolus followed by maintenance IV fluids -lactic acid has improved -Levophed weaned off -off IV fluids -source appears to be UTI. Urine and blood cultures are negative till now, STATUS POST CEFTRIAXONE -status post stress dose steroids - 01/10 continues to have fever although other markers of infection are improved as normal WBC. 01/10: Repeat blood cultures are negative x2 Clark catheter change 01/11 Minimal respiratory secretions, sputum cultures growing yeast which is likely a colonization Change Rocephin to cefepime and vancomycin 01/14: Patient continues to have low-grade fever but overall fever curve is down. White count is normal. CT scan of chest and pelvis does not show any area suggestive of infection. Clark catheter was changed. Procalcitonin level is also on the lower side. Continue cefepime but will discontinue vancomycin at this time. Cultures are negative till now. -lipase was within normal limits -01/15/2024: lower extremity venous Dopplers: Left common femoral vein DVT -01/14: patient was started on heparin infusion OFF all abx 01/18: Remains febrile, patient has been carl cultured this morning, WBC trending up -chest x-ray is not show any new infiltrates -holding antibiotics for now, if patient continues to spike fevers and WBC count increase tomorrow will add antibiotics 01/18: Blood culture growing Gram-positive cocci in clusters 1/2 bottles 01/18: Urine cultures growing Tatiana albicans 01/18: Sputum cultures growing Yeast 01/19: Patient remained febrile with T-max of 101.3. Patient was started on vancomycin, meropenem and micafungin (01/19) Fever curve improving since starting antibiotics, continue antibiotics and antifungals as above (2) Stroke: Code(s): I63.9 - Cerebral infarction, unspecified Status: Acute Assessment and Plan: Patient presented with altered mental status but at that time patient was respiratory failure acute renal failure acidosis and sepsis. CT scan on presen tation showed only old stroke and encephalomalacia Since then patient has not woken up despite holding sedation for multiple days and dialysis. 10/[address] was done which showed. 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 These are likely secondary to hypotension Echo did not show any thrombus or ASD Continue aspirin and statin Neurology following EEG 01/12 - This is an abnormal EEG due to presence of moderate diffuse background slowing suggested generalized cephalopathy. No significant change in neurological status (3) Encephalopathy: Code(s): G93.40 - Encephalopathy, unspecified Status: Acute Assessment and Plan: Patient presented with encephalopathy, altered mental status, delirium, confusio n -most likely related to uremia, infection, severe acidosis and baseline flow malacia from past stroke TSH and ammonia normal Patient has been off sedation since 01/09/2024. Still not responsive.. Will continue hold sedatives. EEG as above Patient was dialyzed 01/11 to help with drug removal. Minimal improved Encephalopathy likely secondary to strokes. See above. Neurology following -patient has been off sedation since 01/09/2024, has not woken up -01/16: Ammonia levels are normal 01/11: Repeat CT scan of the brain IMPRESSION: 1. 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 2. Large distribution of chronic encephalomalacia in the expected distribution of left middle cerebral artery. 01/06: CT brain on admission IMPRESSION: 1. No acute intracranial process. 2. 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 3. Additional more diffuse likely age-related mild to moderate diffuse volume loss and mild scattered white matter hypoattenuation consistent with chronic small vessel ischemic disease. (4) Acute respiratory failure: Code(s): J96.00 - Acute respiratory failure, unspecified whether with hypoxia or hypercap antwan Status: Acute Assessment and Plan: Patient had an episode of emesis in the ER, given her altered mental status encephalopathy, risk of aspiration with impending respiratory failure patient was intubated on 01/06/2025 -chest x-ray and ABG reviewed -patient currently on ASV mode of ventilation, peep of 5, 21% FiO2 and tolerating -sedation is on hold since 01/09/2024 -weaning will depend on improvement in mental status. (5) Acute kidney failure: Code(s): N17.9 - Acute kidney failure, unspecified Status: Acute Assessment and Plan: On chronic kidney injury, unknown cause, CT of the abdomen and pelvis did not show any hydronephrosis or urinary obstruction -significant lactic acidosis and metabolic acidosis -patient has a history of diabetes, hypertension which is likely the cause of chronic kidney disease -patient on lisinopril hydrochlorothiazide and metformin at home -patient was given a total of 3 L IV fluid bolus, 1 L in the ER and 2 L in the ICU -sodium bicarb IV pushes x4 in the ICU -patient was started on sodium bicarb infusion after discussing with Nephrology, which her was discontinued once hemodialysis was started -patient was started on hemodialysis and was dialyzed x 3 days -patient continues to have decent urine output - 01/11 patient was dialyzed again 1 L fluid was removed -continue to monitor urine output, electrolytes and renal function -01/16: worsening creatinine, increased edema, decreased urine output. Discussed with Nephrology, patient will dialyzed - 01/22 plan to dialyze again patient today (6) Metabolic acidosis: Code(s): E87.20 - Acidosis, unspecified Status: Acute Assessment and Plan: RESOLVED Patient presented with significant metabolic acidosis and lactic acidosis. This could be combination of septic shock, acute kidney injury but also a possibility of metformin toxicity Patient received hemodialysis and IV bicarb. Acidosis has resolved. Further dialysis per Nephrology (7) Diastolic dysfunction: Code(s): I51.89 - Other ill-defined heart diseases Status: Acute Assessment and Plan: Echo 01/11 Summary 1. Left ventricular systolic function is normal, estimated at 60-65%. 2. There is moderately increased left ventricular wall thickness. 3. Intact interatrial septum visualized by agitated saline imaging. 4. There is mild aortic valve calcification. 5. There is mild aortic valve stenosis with a peak velocity of 190 cm/s,mean gradient of 8 mmHg, and aortic valve area of 1.8 cm2. 6. There is mild tricuspid valve regurgitation. 7. Mild pulmonary hypertension, estimated pulmonary arterial systolicpressure is 46 mmHg. (8) Insulin dependent diabetes mellitus: Status: Chronic Assessment and Plan: Continue sliding scale insulin Accu-Cheks Lantus dose increased (9) Right hemiparesis: Code(s): G81.91 - Hemiplegia, unspecified affecting right dominant side Status: Acute Assessment and Plan: History of left-sided cerebral hemisphere and CVA, residual mild aphasia and right-sided weakness (10) Seizures: Code(s): R56.9 - Unspecified convulsions Status: Acute Assessment and Plan: Patient has a history of seizures, on p.o. Keppra 500 mg p.o. q.12 hours Continue Keppra IV 500 mg IV q.24 (discuss with pharmacist) EEG negative for any seizure-like activity (11) Hypertension: Code(s): I10 - Essential (primary) hypertension Status: Acute Assessment and Plan: Blood pressures have been labile, will hold metoprolol, hydralazine and amlodipine for now -patient has p.r.n. labetalol -01/21: patient has been requiring multiple doses of p.r.n. labetalol as blood pressures are elevated, will restart amlodipine (12) Anemia: Code(s): D64.9 - Anemia, unspecified Status: Acute Assessment and Plan: 01/16: Patient has been on heparin infusion for DVT in the right common femoral vein. Dropped hemoglobin this morning to 6.7 from 7.8. - heparin infusion Discontinued -stool for Hemoccult was Negative -01/17: IVC filter placement by surgery Hemoglobin stable. Monitor Subjective Date/time seen: 01/23/24 16:02 Interval history: No change in mentation. Family is awaiting for patient's sister arrival from [facility]. Exam Narrative: General: Intubated and sedated HEENT:? Pupils are equal and reactive to light, patient has positive corneal reflex, sclera is clear, ETT in place, facial puffiness noted Neck:? Supple, right IJ dialysis catheter in place Respiratory:? Coarse breath sounds bilaterally, decreased at bases no wheezing, adequate air entry Cardiac:? S1-S2 normal, regular rate and rhythm, Abdomen:? Soft, nontender, nondistended, hypoactive bowel sounds, old midline surgical scar noted Extremities:? Dry skin, decreased pedal pulses, pitting edema bilateral upper and lower extremities Neuro:? Patient is intubated, off sedation, PERRL, patient withdraws to pain stimulus in bilateral lower extremities, decerebrate posturing of the upper extremities on pain stimuli. Skin:? Dry and flaky skin on lower extremities, skin is warm Psych:? Unable to assess at this time Objective Data Vital Signs Vital Signs: Vital Signs - 24 hr 01/22/24 17:49 01/22/24 18:00 01/22/24 18:00 Temperature 99.6 F Pulse Rate 97 95 86 Respiratory Rate 12 Blood Pressure 153/68 H Pulse Oximetry 100 95 Oxygen Delivery Mechanical Ventilation Fraction of Inspired Oxygen 21 01/22/24 19:28 01/22/24 19:30 01/22/24 20:34 Temperature 99.7 F H Pulse Rate 96 96 89 Respiratory Rate 14 Blood Pressure 166/69 H Pulse Oximetry 100 100 Oxygen Delivery Mechanical Ventilation Fraction of Inspired Oxygen 21 01/22/24 20:00 01/22/24 20:00 01/22/24 20:00 Temperature 99.7 F H Pulse Rate 87 Respiratory Rate 13 Blood Pressure 145/63 H Pulse Oximetry 100 100 Oxygen Delivery Mechanical Ventilation Fraction of Inspired Oxygen 21 21 01/22/24 22:00 01/22/24 23:16 01/23/24 00:05 Temperature 99.7 F H Pulse Rate 93 92 91 Respiratory Rate 14 Blood Pressure 149/64 H Pulse Oximetry 100 100 Oxygen Delivery Mechanical Ventilation Fraction of Inspired Oxygen 21 01/23/24 00:00 01/23/24 00:00 01/23/24 00:00 Temperature 99.6 F Pulse Rate 96 Respiratory Rate 17 Blood Pressure 170/70 H Pulse Oximetry 100 100 Oxygen Delivery Mechanical Ventilation Fraction of Inspired Oxygen 21 21 01/22/24 20:00 01/22/24 22:00 01/23/24 00:00 Temperature Pulse Rate 87 93 95 Respiratory Rate Blood Pressure Pulse Oximetry Oxygen Delivery Fraction of Inspired Oxygen 01/23/24 01:00 01/23/24 02:00 01/23/24 02:00 Temperature 99.2 F Pulse Rate 86 86 Respiratory Rate 13 Blood Pressure 136/63 156/67 H Pulse Oximetry 100 Oxygen Delivery Fraction of Inspired Oxygen 01/23/24 02:36 01/23/24 04:00 01/23/24 04:00 Temperature Pulse Rate 90 89 Respiratory Rate Blood Pressure Pulse Oximetry 100 100 Oxygen Delivery Mechanical Ventilation Mechanical Ventilation Fraction of Inspired Oxygen 21 21 01/23/24 04:00 01/23/24 04:00 01/23/24 05:44 Temperature 99.5 F Pulse Rate 89 86 Respiratory Rate 13 Blood Pressure 145/65 H Pulse Oximetry 100 100 Oxygen Delivery Mechanical Ventilation Fraction of Inspired Oxygen 21 21 01/23/24 06:00 01/23/24 06:00 01/23/24 07:25 Temperature 99 F Pulse Rate 85 84 91 Respiratory Rate 13 Blood Pressure 121/61 Pulse Oximetry 100 100 Oxygen Delivery Mechanical Ventilation Fraction of Inspired Oxygen 21 01/23/24 08:00 01/23/24 08:00 01/23/24 08:00 Temperature 99.0 F Pulse Rate 90 89 89 Respiratory Rate 13 Blood Pressure 129/64 Pulse Oximetry 100 100 Oxygen Delivery Mechanical Ventilation Fraction of Inspired Oxygen 21 01/23/24 08:00 01/23/24 10:00 01/23/24 10:00 Temperature 98.9 F Pulse Rate 96 92 Respiratory Rate 14 Blood Pressure 142/63 H Pulse Oximetry 100 Oxygen Delivery Fraction of Inspired Oxygen 21 01/23/24 12:00 01/23/24 12:00 01/23/24 12:00 Temperature 99.1 F Pulse Rate 89 87 Respiratory Rate 13 Blood Pressure 119/61 Pulse Oximetry 100 Oxygen Delivery Fraction of Inspired Oxygen 21 01/23/24 12:00 01/23/24 10:35 01/23/24 13:25 Temperature Pulse Rate 90 93 93 Respiratory Rate Blood Pressure Pulse Oximetry 100 100 100 Oxygen Delivery Mechanical Ventilation Mechanical Ventilation Mechanical Ventilation Fraction of Inspired Oxygen 21 21 01/23/24 14:00 01/23/24 14:00 Temperature 99.1 F Pulse Rate 90 90 Respiratory Rate 13 Blood Pressure 119/58 L Pulse Oximetry 100 Oxygen Delivery Fraction of Inspired Oxygen Intake/Output Intake/Output: Intake & Output 01/20/24 01/21/24 01/22/24 01/23/24 23:59 23:59 23:59 23:59 Intake Total 1892 1853 1856 545 Output Total 360 80 320 225 Balance 1532 1773 1536 320 Meds/Results Medications: Active Medications Generic Name Dose Route Start Last Admin Trade Name Freq PRN Reason Stop Dose Admin Acetaminophen 650 mg 01/10/24 08:02 01/20/24 16:00 Acetaminophen 325 Mg Tablet FEED TUBE 650 mg Q6H PRN Administration Mild Pain (1-3) or Fever Alteplase, Recombinant 2 mg 01/23/24 09:15 01/23/24 09:57 Alteplase 2 Mg Vial (Cathflo) IV PUSH 2 mg ONCE PRN Administration Line Occlusion Alteplase, Recombinant 2 mg 01/23/24 09:15 Alteplase 2 Mg Vial (Cathflo) IV PUSH ONCE PRN Line Occlusion Amlodipine Besylate 10 mg 01/22/24 08:50 01/23/24 10:23 Amlodipine Besylate 10 Mg Tablet FEED TUBE Not Given DAILY CARMELA Aspirin 325 mg 01/12/24 16:00 01/17/24 08:43 Aspirin 325 Mg Tablet FEED TUBE 325 mg DAILY@0800 CARMELA Administration Atorvastatin Calcium 40 mg 01/13/24 09:00 01/23/24 07:58 Atorvastatin 40 Mg Tablet FEED TUBE 40 mg DAILY CARMELA Administration Dextrose 12.5 gm 01/07/24 13:18 Dextrose 50% 25 Gm/50 Ml Syringe IV PUSH PRN PRN Hypoglycemia Protocol Epoetin Dane-epbx 10,000 units 01/12/24 09:20 01/22/24 09:27 Epoetin Dane-Epbx 10,000 Units/Ml Vial SUB-Q 10,000 units MOWEFR@09 CARMELA Administration Epoetin Dane-epbx 10,000 units 01/23/24 20:00 Epoetin Dane-Epbx 10,000 Units/Ml Vial IV PUSH 01/23/24 20:01 ONCE ONE Glucagon 1 mg 01/07/24 13:18 Glucagon For Inj 1 Mg Vial IM PRN PRN Hypoglycemia Protocol Glucose 15 gm 01/07/24 13:18 Glucose Oral Gel 15 Gm Of Glucse In 37.5 Gm Tube PO PRN PRN Hypoglycemia Protocol Hydralazine HCl 10 mg 01/18/24 02:20 01/18/24 05:40 Hydralazine 10 Mg Tablet PO Not Given Q6HR CARMELA Dextrose 1,000 mls @ 100 mls/hr 01/07/24 13:18 Dextrose 5% 1,000 Ml IVPB PRN PRN Hypoglycemia Protocol Albumin Human 50 mls @ 999 mls/hr 01/07/24 17:11 01/12/24 10:30 Albutein IVPB 02/06/24 17:10 Infused Q10M PRN Infusion HYPOTENSION Levetiracetam 500 mg in 100 mls @ 400 mls/hr 01/07/24 21:00 01/22/24 20:49 Keppra Iv IVPB Infused Q24H CARMELA Infusion Micafungin Sodium 100 mg/ 100 mls @ 100 mls/hr 01/20/24 16:00 01/22/24 17:42 Sodium Chloride IVPB Infused Q24H CARMELA Infusion Meropenem 500 mg in 100 mls @ 200 mls/hr 01/22/24 18:00 01/22/24 19:58 IVPB Infused Q24H CARMELA Infusion Insulin Aspart 4 - 8 units 01/10/24 07:55 01/23/24 12:16 Insulin Aspart (*Bkc) 100 Units/Ml SUB-Q 4 units Q4H CARMELA Administration Protocol Insulin Glargine 95 units 01/23/24 09:00 01/23/24 08:00 Insulin Glargine (*Bkc) 100 Units/Ml SUB-Q 95 units Q12H CARMELA Administration Labetalol HCl 10 mg 01/18/24 08:37 01/23/24 00:05 Labetalol Hcl Inj 100 Mg/20 Ml Vial IV PUSH 10 mg Q4H PRN Administration Hypertension Metoprolol Tartrate 100 mg 01/16/24 09:00 01/17/24 08:43 Metoprolol Tartrate 50 Mg Tab FEED TUBE 100 mg Q12HR CARMELA Administration Multi-Ingred Cream/Lotion/Oil/Oint 1 applic 01/07/24 21:00 01/23/24 08:01 Mineral Oil/White Petrolatum Ointment EACH EYE 1 applic Q12HR CARMELA Administration Pantoprazole Sodium 40 mg 01/07/24 21:00 01/23/24 07:58 Pantoprazole Sodium Iv 40 Mg Vial IV PUSH 40 mg Q12HR CARMELA Administration Vancomycin HCl 1 each 01/20/24 14:59 Vancomycin For Hemodialysis IVPB PRN PRN Vancomycin Protocol Radiology Results: ITS Impressions Abdomen/Pelvis CT 01/07/24 16:52 IMPRESSION: No acute abdominopelvic process. Specifically, there is no CT evidence of bowel obstruction. No definite evidence of renal injury, noting that low-grade renal injury as can be difficult to detect without contrast. Renal Ultrasound 01/08/24 10:47 IMPRESSION: 1. Normal kidney sizes. No hydronephrosis. Chest/Abdomen/Pelvis CT 01/12/24 15:08 IMPRESSION: Interval enlargement of the liver, when compared with previous examination. Flattening of the inferior vena cava suggesting severe hypovolemia. Interval development of basilar atelectasis and trace bilateral pleural effusions. No additional findings which represents a change from prior examination performed 01/07/2024. Supportive devices are in good position. Redemonstration of multiple stones within the gallbladder which is not distended. Head CT 01/12/24 15:31 IMPRESSION: 1. 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 2. Large distribution of chronic encephalomalacia in the expected distribution of left middle cerebral artery. Abdomen Ultrasound 01/13/24 09:31 IMPRESSION: 1. Cholelithiasis. 2. Normal liver Doppler. Arterial/Peripheral Duplex 01/13/24 09:31 IMPRESSION: 1. Cholelithiasis. 2. Normal liver Doppler. Venous Doppler Study 01/15/24 17:14 IMPRESSION: 1. Deep vein thrombosis involving left common femoral vein. ADDENDUM: 01/15/24 [id number] I called this result to Apurva Mclean. Abdomen X-Ray 01/16/24 06:03 Impression: NG tube in satisfactory position. IVC Filter Placement X-Ray 01/20/24 06:18 IMPRESSION: Fluoroscopy used during IVC filter insertion. Chest X-Ray 01/23/24 06:09 IMPRESSION: 1. Stable mild atelectasis at left lung base. Labs Labs: Laboratory Results - last 24 hr 01/22/24 01/22/24 01/23/24 19:34 23:52 01:00 WBC RBC Hgb Hct MCV MCH MCHC RDW Plt Count MPV Immature Gran % (Auto) Neut % (Auto) Lymph % (Auto) [place] % (Auto) Eos % (Auto) Baso % (Auto) Lymph # (Auto) [place] # (Auto) Eos # (Auto) Baso # (Auto) Abs Immat Gran (auto) Absolute Neuts (auto) Absolute Nucleated RBC Nucleated RBC % Platelet Estimate Anisocytosis Macrocytosis Ovalocytes Zac Cells Schistocytes Sodium 137 Potassium 4.2 Chloride 103 Carbon Dioxide 23 Anion Gap 11 BUN 139 H D Creatinine 6.30 H Estim Creat Clear Calc 10 Estimated GFR 7 L Glucose 299 H POC Capillary Glucose 333 H 259 H Calcium 8.7 Phosphorus 4.4 Magnesium 2.7 H Total Bilirubin AST ALT Alkaline Phosphatase Total Protein Albumin Random Vancomycin 01/23/24 01/23/24 01/23/24 03:00 04:23 07:50 WBC 12.0 H RBC 2.70 L Hgb 7.8 L Hct 27.4 L MCV 101.5 H MCH 28.9 MCHC 28.5 L RDW 18.2 H Plt Count 396 H MPV 12.3 H Immature Gran % (Auto) 1.2 H Neut % (Auto) 76.5 H Lymph % (Auto) 10.4 L [place] % (Auto) 9.1 H Eos % (Auto) 2.1 Baso % (Auto) 0.7 Lymph # (Auto) 1.25 [place] # (Auto) 1.1 H Eos # (Auto) 0.3 Baso # (Auto) 0.1 Abs Immat Gran (auto) 0.15 H Absolute Neuts (auto) 9.2 H Absolute Nucleated RBC 0.000 Nucleated RBC % 0.0 Platelet Estimate Slightly increased Anisocytosis 1+ Macrocytosis 1+ Ovalocytes 1+ [place] Cells 1+ Schistocytes None seen Sodium 137 Potassium 4.3 Chloride 102 Carbon Dioxide 21 L Anion Gap 14 H BUN 144 H Creatinine 6.20 H Estim Creat Clear Calc 10 Estimated GFR 7 L Glucose 281 H POC Capillary Glucose 247 H 247 H Calcium 8.8 Phosphorus 4.6 H Magnesium 2.9 H Total Bilirubin 0.5 AST 32 ALT 23 Alkaline Phosphatase 97 Total Protein 6.0 L Albumin 3.1 L Random Vancomycin 18.7 01/23/24 11:58 WBC RBC Hgb Hct MCV MCH MCHC RDW Plt Count MPV Immature Gran % (Auto) Neut % (Auto) Lymph % (Auto) [place] % (Auto) Eos % (Auto) Baso % (Auto) Lymph # (Auto) [place] # (Auto) Eos # (Auto) Baso # (Auto) Abs Immat Gran (auto) Absolute Neuts (auto) Absolute Nucleated RBC Nucleated RBC % Platelet Estimate Anisocytosis Macrocytosis Ovalocytes [place] Cells Schistocytes Sodium Potassium Chloride Carbon Dioxide Anion Gap BUN Creatinine Estim Creat Clear Calc Estimated GFR Glucose POC Capillary Glucose 237 H Calcium Phosphorus Magnesium Total Bilirubin AST ALT Alkaline Phosphatase Total Protein Albumin Random Vancomycin Hospitalist MIPS Advance Care Plan I have confirmed that the patient's Advanced Care Plan is present, code status is documented, or surrogate decision maker is listed in patient medical record.: Yes Medication Reconciliation I have utilized all available resources to obtain, update and review the patients current medications (includes all prescriptions, OTC, herbals, cannabis, and nutritional supplements).: Yes
[2024-01-23 16:35] LABS: Glucose Point of Care 251 mg/dl (65-105)
[2024-01-23] MEDS: MICAFUNGIN SODIUM 100 MG in SODIUM CHLORIDE 0.9% IV 100 ML IVPB (16:40)
[2024-01-23] MEDS: MEROPENEM 500 MG/NS 100 ML 500 MG/100 ML BAG 200 MG IVPB (17:45)
--- NOTE | 2024-01-23 17:57 | PC.NURSE ---
Currently waiting on the arrival of patient's sister whom lives outside of the country before moving to comfort care. Asked son, Hakan, and Spouse, Danuta, when the expected arrival of Rafaela's sister is. They stated that she is visiting the [place] embassy in [place] on and there is a chance she will receive her visa that day. If that is the case, she can be here as early as Monday. Unsure of the alternative arrival date if she is unable to get her visa on .
[2024-01-23] MEDS: levETIRAcetam 500MG/NACL 100ML 500 MG/100 ML BAG 400 MG IVPB (20:47)
[2024-01-23 21:13] LABS: Glucose Point of Care 217 mg/dl (65-105)
[2024-01-24] VITALS (29 sets, daily range): BP systolic 96–158; BP diastolic 49–79; PULSE 85–96; RESP 6–19; TEMP 36.9–37.8; O2SAT 100
[2024-01-24 00:31] LABS: Glucose Point of Care 200 mg/dl (65-105)
[2024-01-24 04:35] LABS: Glucose Point of Care 200 mg/dl (65-105)
[2024-01-24 05:58] LABS: Hematocrit 23.2 % (37.0-47.0); Mean Corpuscular HGB Conc 30.2 g/dl (32-36); Mean Corpuscular Hemoglobin 29.4 pg (26-34); Mean Corpuscular Volume 97.5 fl (80-100); Mean Platelet Volume 11.2 fl (7.4-10.4); Platelet Count Result 365 k/mm3 (150-375); Red Blood Count 2.38 M/mm3 (4.2-5.4); Red Cell Distribution Width 18.2 % (11.5-14.5); White Blood Count 8.7 K/mm3 (4.5-10.0)
[2024-01-24 06:11] LABS: Alanine Aminotransferase 23 U/L (6-35); Albumin Level 2.9 g/dL (3.5-5.1); Alkaline Phosphatase 100 U/L (38-126); Anion Gap 14 mmol/L (4-12); Aspartate Amino Transferase 33 U/L (14-36); Bilirubin,Total 0.5 mg/dL (0.2-1.3); Calcium 8.5 mg/dL (8.4-10.2); Carbon Dioxide 23 mmol/L (22-30); Chloride 101 mmol/L (98-107); Estimated CRCL calculation 9 ml/min; Estimated Glomerular Filt Rate 7; Glucose 176 mg/dL (65-110); Magnesium 2.8 mg/dL (1.6-2.3); Phosphorus 4.6 mg/dL (2.5-4.5); Potassium 3.9 mmol/L (3.4-5.0); Sodium 138 mmol/L (137-145)
[2024-01-24 06:34] LABS: Blood Urea Nitrogen 138 mg/dL (7-17)
[2024-01-24 07:41] LABS: Glucose Point of Care 179 mg/dl (65-105)
[2024-01-24 07:48] LABS: Vancomycin Random 16.5 ug/mL (10-20)
--- NOTE | 2024-01-24 08:05 | WPDINTPN ---
Progress Note: A&P Assessment and Plan (1) Septic shock: Code(s): A41.9 - Sepsis, unspecified organism; R65.21 - Severe sepsis with septic shock Status: Acute Assessment and Plan: RESOLVED Patient hypotensive on presentation Patient was given IV fluid bolus followed by maintenance IV fluids -lactic acid has improved -Levophed weaned off -off IV fluids -source appears to be UTI. Urine and blood cultures are negative till now, STATUS POST CEFTRIAXONE -status post stress dose steroids - 01/10 continues to have fever although other markers of infection are improved as normal WBC. 01/10: Repeat blood cultures are negative x2 Clark catheter change 01/11 Minimal respiratory secretions, sputum cultures growing yeast which is likely a colonization Change Rocephin to cefepime and vancomycin 01/14: Patient continues to have low-grade fever but overall fever curve is down. White count is normal. CT scan of chest and pelvis does not show any area suggestive of infection. Clark catheter was changed. Procalcitonin level is also on the lower side. Continue cefepime but will discontinue vancomycin at this time. Cultures are negative till now. -lipase was within normal limits -01/15/2024: lower extremity venous Dopplers: Left common femoral vein DVT -01/14: patient was started on heparin infusion OFF all abx 01/18: Remains febrile, patient has been carl cultured this morning, WBC trending up -chest x-ray is not show any new infiltrates -holding antibiotics for now, if patient continues to spike fevers and WBC count increase tomorrow will add antibiotics 01/18: Blood culture growing Gram-positive cocci in clusters 1/2 bottles 01/18: Urine cultures growing Tatiana albicans 01/18: Sputum cultures growing Yeast 01/19: Patient remained febrile with T-max of 101.3. Patient was started on vancomycin, meropenem and micafungin (01/19) which will be continued. Fever curve improving since starting antibiotics, continue antibiotics and antifungals as above (2) Stroke: Code(s): I63.9 - Cerebral infarction, unspecified Status: Acute Assessment and Plan: Patient presented with altered mental status but at that time patient was respiratory failure acute renal failure acidosis and sepsis. CT scan on presentation showed only old stroke and encephalomalacia Since then patient has not woken up despite holding sedation for multiple days and dialysis. 01/[address] was done which showed. 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 These are likely secondary to hypotension Echo did not show any thrombus or ASD Continue aspirin and statin Neurology following EEG 01/12 - This is an abnormal EEG due to presence of moderate diffuse background slowing suggested generalized cephalopathy. No significant change in neurological status (3) Encephalopathy: Code(s): G93.40 - Encephalopathy, unspecified Status: Acute Assessment and Plan: Patient presented with encephalopathy, altered mental status, delirium, confusion -most likely related to uremia, infection, severe acidosis and baseline flow malacia from past stroke TSH and ammonia normal Patient has been off sedation since 01/09/2024. Still not responsive.. Will continue hold sedatives. EEG as above Patient was dialyzed 01/11 to help with drug removal. Minimal improved Encephalopathy likely secondary to strokes. See above. Neurology following -patient has been off sedation since 01/09/2024, has not woken up -01/16: Ammonia levels are normal 01/11: Repeat CT scan of the brain IMPRESSION: 1. 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 2. Large distribution of chronic encephalomalacia in the expected distribution of left middle cerebral artery. 01/06: CT brain on admission IMPRESSION: 1. No acute intracranial process. 2. 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 3. Additional more diffuse likely age-related mild to moderate diffuse volume loss and mild scattered white matter hypoattenuation consistent with chronic small vessel ischemic disease. (4) Acute respiratory failure: Code(s): J96.00 - Acute respiratory failure, unspecified whether with hypoxia or hypercapnia Status: Acute Assessment and Plan: Patient had an episode of emesis in the ER, given her altered mental status encephalopathy, risk of aspiration with impending respiratory failure patient was intubated on 01/06/2025 -chest x-ray and ABG reviewed -patient currently on ASV mode of ventilation, peep of 5, 21% FiO2 and tolerating. Will change to 75% minute ventilation -sedation is on hold since 01/09/2024 -weaning will depend on improvement in mental status. (5) Acute kidney failure: Code(s): N17.9 - Acute kidney failure, unspecified Status: Acute Assessment and Plan: On chronic kidney injury, unknown cause, CT of the abdomen and pelvis did not show any hydronephrosis or urinary obstruction -significant lactic acidosis and metabolic acidosis -patient has a history of diabetes, hypertension which is likely the cause of chronic kidney disease -patient on lisinopril hydrochlorothiazide and metformin at home -patient was given a total of 3 L IV fluid bolus, 1 L in the ER and 2 L in the ICU -sodium bicarb IV pushes x4 in the ICU -patient was started on sodium bicarb infusion after discussing with Nephrology, which her was discontinued once hemodialysis was started -patient was started on hemodialysis and was dialyzed x 3 days -patient continues to have decent urine output - 01/11 patient was dialyzed again 1 L fluid was removed -continue to monitor urine output, electrolytes and renal function -01/16: worsening creatinine, increased edema, decreased urine output. Discussed with Nephrology, patient will dialyzed - 01/22 patient would not be dialyzed due to issues with the catheter. Both ports were flushing and rowing but patient were having high pressure limiting flow. Will plan to change catheter today and re-attempt dialysis. (6) Metabolic acidosis: Code(s): E87.20 - Acidosis, unspecified Status: Acute Assessment and Plan: RESOLVED Patient presented with significant metabolic acidosis and lactic acidosis. This could be combination of septic shock, acute kidney injury but also a possibility of metformin toxicity Patient received hemodialysis and IV bicarb. Acidosis has resolved. Further dialysis per Nephrology (7) Diastolic dysfunction: Code(s): I51.89 - Other ill-defined heart diseases Status: Acute Assessment and Plan: Echo 01/11 Summary 1. Left ventricular systolic function is normal, estimated at 60-65%. 2. There is moderately increased left ventricular wall thickness. 3. Intact interatrial septum visualized by agitated saline imaging. 4. There is mild aortic valve calcification. 5. There is mild aortic valve stenosis with a peak velocity of 190 cm/s,mean gradient of 8 mmHg, and aortic valve area of 1.8 cm2. 6. There is mild tricuspid valve regurgitation. 7. Mild pulmonary hypertension, estimated pulmonary arterial systolicpressure is 46 mmHg. (8) Insulin dependent diabetes mellitus: Status: Chronic Assessment and Plan: Continue sliding scale insulin Accu-Cheks Continue Lantus at current dose (9) Right hemiparesis: Code(s): G81.91 - Hemiplegia, unspecified affecting right dominant side Status: Acute Assessment and Plan: History of left-sided cerebral hemisphere and CVA, residual mild aphasia and right-sided weakness (10) Seizures: Code(s): R56.9 - Unspecified convulsions Status: Acute Assessment and Plan: Patient has a history of seizures, on p.o. Keppra 500 mg p.o. q.12 hours Continue Keppra IV 500 mg IV q.24 (discuss with pharmacist) EEG negative for any seizure-like activity (11) Hypertension: Code(s): I10 - Essential (primary) hypertension Status: Acute Assessment and Plan: Blood pressures have been labile, will hold metoprolol, hydralazine and amlodipine for now -patient has p.r.n. labetalol -01/21: patient has been requiring multiple doses of p.r.n. labetalol as blood pressures are elevated, will restart amlodipine (12) Anemia: Code(s): D64.9 - Anemia, unspecified Status: Acute Assessment and Plan: 01/16: Patient has been on heparin infusion for DVT in the right common femoral vein. Dropped hemoglobin this morning to 6.7 from 7.8. - heparin infusion Discontinued -stool for Hemoccult was Negative -01/17: IVC filter placement by surgery Transfuse if hemoglobin less than 7 Monitor Plan DVT prophylaxis: Hold heparin infusion due to anemia, continue SCDs Stress ulcer prophylaxis: Protonix IV q.12 hours Nutrition: Continue tube feeds Code Status: Patient is DNR at this time with family planning to palliatively extubate and proceed with comfort care only once her sister arrived from [place] 01/20/2024: Dr. Sinha discussed with sons Hakan and June, Danuta in the conference room this afternoon. I discussed with them at length regarding patient's medical condition and problems from the time she came to the hospital. They are aware that she has had multiple strokes, encephalopathy and not waking up since her sedation has been turned off on 01/09/2024. She is in renal failure requiring intermittent dialysis, has a DVT with IVC filters, anemia. The and the sons stated that they do not want the patient to get tracheostomy or the PEG tube. And they want to make her comfortable but requested if he could wait for 1 week since patient's sister was very close to her will be traveling from [place] to see her. They will keep us posted on her arrival. In the meantime patient remains DNR which was reiterated and acceptable to the and the sons. Bedside RN Anali and child care center administrator Ericka were present during the family meeting. Critical Care Time Spent: 30 minutes Due to a high probability of clinically significant, life threatening deterioration, the patient required my highest level of preparedness to intervene emergently and I personally spent this critical care time directly and personally managing the patient. This critical care time included obtaining a history; examining the patient; pulse oximetry; ordering and review of studies; arranging urgent treatment with development of a management plan; evaluation of patient's response to treatment; frequent reassessment; and discussions with other providers. It was exclusive of separately billable procedures and treating other patients and teaching time. Please see Assessment and Plan section and the rest of the note for further information on patient assessment and treatment This dictation may have been done utilizing a voice recognition system. Attempts have been made to correct errors. However, there may be uncorrected grammatical, spelling, and recognitions errors present. Subjective Date/time seen: 01/24/24 Overnight events reviewed. Afebrile Continues to be on mechanical ventilation 21% FiO2 ASV mode No significant change in mental status Not on any sedation Other Vitals acceptable Tolerating tube feeds Yesterday dialysis could be completed because of issues with dialysis catheter Interval history: Reason for consult: Altered mental status, acute respiratory failure, severe metabolic acidosis, multiple strokes, DVT Review of Systems Review of Systems: ROS unobtainable: Yes unobtainable due to endotracheal tube, unobtainable due to medical condition and unobtainable due to mental status Exam Narrative: General: Intubated and sedated HEENT:? Pupils are equal and reactive to light, patient has positive corneal reflex, sclera is clear, ETT in place, facial puffiness noted Neck:? Supple, right IJ dialysis catheter in place Respiratory:? Coarse breath sounds bilaterally, decreased at bases no wheezing, adequate air entry Cardiac:? S1-S2 normal, regular rate and rhythm, Abdomen:? Soft, nontender, nondistended, hypoactive bowel sounds, old midline surgical scar noted Extremities:? Dry skin, decreased pedal pulses, pitting edema bilateral upper and lower extremities Neuro:? Patient is intubated, off sedation, PERRL, patient withdraws to pain stimulus in bilateral lower extremities, decerebrate posturing of the upper extremities on pain stimuli. Skin:? Dry and flaky skin on lower extremities, skin is warm Psych:? Unable to assess at this time Objective Data Vital Signs Vital Signs: Vital Signs - 24 hr 01/23/24 10:00 01/23/24 10:00 01/23/24 12:00 Temperature 37.2 C 37.3 C Pulse Rate 96 92 89 Respiratory Rate 14 13 Blood Pressure 142/63 H 119/61 Pulse Oximetry 100 100 Oxygen Delivery Fraction of Inspired Oxygen 01/23/24 12:00 01/23/24 12:00 01/23/24 12:00 Temperature Pulse Rate 87 90 Respiratory Rate Blood Pressure Pulse Oximetry 100 Oxygen Delivery Mechanical Ventilation Fraction of Inspired Oxygen 21 01/23/24 10:35 01/23/24 13:25 01/23/24 14:00 Temperature Pulse Rate 93 93 90 Respiratory Rate Blood Pressure Pulse Oximetry 100 100 Oxygen Delivery Mechanical Ventilation Mechanical Ventilation Fraction of Inspired Oxygen 21 01/23/24 14:00 01/23/24 16:00 01/23/24 14:15 Temperature 37.3 C Pulse Rate 90 Respiratory Rate 13 Blood Pressure 119/58 L Pulse Oximetry 100 Oxygen Delivery Fraction of Inspired Oxygen 21 30 01/23/24 14:15 01/23/24 14:22 01/23/24 14:45 Temperature 37.2 C 37.2 C Pulse Rate 92 91 90 Respiratory Rate 14 14 Blood Pressure 129/60 146/60 H 137/61 Pulse Oximetry Oxygen Delivery Fraction of Inspired Oxygen 01/23/24 14:34 01/23/24 16:00 01/23/24 16:30 Temperature 37.2 C Pulse Rate 94 94 92 Respiratory Rate 13 Blood Pressure 100/50 L 111/57 L Pulse Oximetry 100 100 Oxygen Delivery Mechanical Ventilation Fraction of Inspired Oxygen 01/23/24 17:46 01/23/24 16:00 01/23/24 18:00 Temperature Pulse Rate 91 81 81 Respiratory Rate Blood Pressure Pulse Oximetry Oxygen Delivery Fraction of Inspired Oxygen 01/23/24 16:00 01/23/24 18:00 01/23/24 19:44 Temperature 37.2 C Pulse Rate 80 76 84 Respiratory Rate 17 Blood Pressure 153/78 H Pulse Oximetry 100 93 100 Oxygen Delivery Mechanical Ventilation Mechanical Ventilation Fraction of Inspired Oxygen 21 21 01/23/24 22:24 01/23/24 20:00 01/23/24 20:00 Temperature 37.3 C Pulse Rate 87 83 Respiratory Rate 10 L Blood Pressure 126/65 Pulse Oximetry 100 100 Oxygen Delivery Mechanical Ventilation Fraction of Inspired Oxygen 21 21 01/23/24 20:00 01/23/24 22:00 01/23/24 20:00 Temperature 37.2 C Pulse Rate 87 83 Respiratory Rate 13 Blood Pressure 148/57 H Pulse Oximetry 100 100 Oxygen Delivery Mechanical Ventilation Fraction of Inspired Oxygen 21 01/23/24 22:00 01/24/24 00:00 01/24/24 00:00 Temperature 37.3 C Pulse Rate 87 90 Respiratory Rate 6 L Blood Pressure 158/66 H Pulse Oximetry 100 Oxygen Delivery Fraction of Inspired Oxygen 21 01/24/24 00:00 01/24/24 00:00 01/24/24 02:13 Temperature Pulse Rate 91 95 Respiratory Rate Blood Pressure Pulse Oximetry 100 100 Oxygen Delivery Mechanical Ventilation Mechanical Ventilation Fraction of Inspired Oxygen 21 21 01/24/24 02:00 01/24/24 02:00 01/24/24 04:00 Temperature 37.6 C 37.8 C H Pulse Rate 93 93 91 Respiratory Rate 19 11 L Blood Pressure 127/79 120/58 L Pulse Oximetry 100 100 Oxygen Delivery Fraction of Inspired Oxygen 01/24/24 04:56 01/24/24 04:00 01/24/24 06:00 Temperature Pulse Rate 96 89 90 Respiratory Rate Blood Pressure Pulse Oximetry 100 Oxygen Delivery Mechanical Ventilation Fraction of Inspired Oxygen 21 01/24/24 04:00 01/24/24 04:00 01/24/24 06:00 Temperature 37.4 C Pulse Rate 90 Respiratory Rate 12 Blood Pressure 135/60 Pulse Oximetry 100 100 Oxygen Delivery Mechanical Ventilation Fraction of Inspired Oxygen 21 21 Intake/Output Intake/Output: Intake & Output 01/21/24 01/22/24 01/23/24 01/24/24 23:59 23:59 23:59 23:59 Intake Total 1853 1856 1749 605 Output Total 80 320 225 500 Balance 1773 1536 1524 105 Meds/Results Medications: Active Medications Generic Name Dose Route Start Last Admin Trade Name Freq PRN Reason Stop Dose Admin Acetaminophen 650 mg 01/10/24 08:02 01/20/24 16:00 Acetaminophen 325 Mg Tablet FEED TUBE 650 mg Q6H PRN Administration Mild Pain (1-3) or Fever Alteplase, Recombinant 2 mg 01/23/24 09:15 01/23/24 09:57 Alteplase 2 Mg Vial (Cathflo) IV PUSH 2 mg ONCE PRN Administration Line Occlusion Alteplase, Recombinant 2 mg 01/23/24 09:15 Alteplase 2 Mg Vial (Cathflo) IV PUSH ONCE PRN Line Occlusion Amlodipine Besylate 10 mg 01/22/24 08:50 01/23/24 10:23 Amlodipine Besylate 10 Mg Tablet FEED TUBE Not Given DAILY CARMELA Aspirin 325 mg 01/12/24 16:00 01/17/24 08:43 Aspirin 325 Mg Tablet FEED TUBE 325 mg DAILY@0800 CARMELA Administration Atorvastatin Calcium 40 mg 01/13/24 09:00 01/23/24 07:58 Atorvastatin 40 Mg Tablet FEED TUBE 40 mg DAILY CARMELA Administration Dextrose 12.5 gm 01/07/24 13:18 Dextrose 50% 25 Gm/50 Ml Syringe IV PUSH PRN PRN Hypoglycemia Protocol Epoetin Dane-epbx 10,000 units 01/12/24 09:20 01/22/24 09:27 Epoetin Dane-Epbx 10,000 Units/Ml Vial SUB-Q 10,000 units MOWEFR@09 CARMELA Administration Glucagon 1 mg 01/07/24 13:18 Glucagon For Inj 1 Mg Vial IM PRN PRN Hypoglycemia Protocol Glucose 15 gm 01/07/24 13:18 Glucose Oral Gel 15 Gm Of Glucse In 37.5 Gm Tube PO PRN PRN Hypoglycemia Protocol Hydralazine HCl 10 mg 01/18/24 02:20 01/18/24 05:40 Hydralazine 10 Mg Tablet PO Not Given Q6HR CARMELA Dextrose 1,000 mls @ 100 mls/hr 01/07/24 13:18 Dextrose 5% 1,000 Ml IVPB PRN PRN Hypoglycemia Protocol Albumin Human 50 mls @ 999 mls/hr 01/07/24 17:11 01/12/24 10:30 Albutein IVPB 02/06/24 17:10 Infused Q10M PRN Infusion HYPOTENSION Levetiracetam 500 mg in 100 mls @ 400 mls/hr 01/07/24 21:00 01/23/24 20:47 Keppra Iv IVPB 400 mls/hr Q24H CARMELA Administration Micafungin Sodium 100 mg/ 100 mls @ 100 mls/hr 01/20/24 16:00 01/23/24 17:40 Sodium Chloride IVPB Infused Q24H CARMELA Infusion Meropenem 500 mg in 100 mls @ 200 mls/hr 01/22/24 18:00 01/23/24 18:16 IVPB Infused Q24H CARMELA Infusion Insulin Aspart 4 - 8 units 01/10/24 07:55 01/24/24 07:45 Insulin Aspart (*Bkc) 100 Units/Ml SUB-Q Not Given Q4H [facility] Protocol Insulin Glargine 95 units 01/23/24 09:00 01/23/24 20:46 Insulin Glargine (*Bkc) 100 Units/Ml SUB-Q 95 units Q12H CARMELA Administration Labetalol HCl 10 mg 01/18/24 08:37 01/23/24 17:46 Labetalol Hcl Inj 100 Mg/20 Ml Vial IV PUSH 10 mg Q4H PRN Administration Hypertension Metoprolol Tartrate 100 mg 01/16/24 09:00 01/17/24 08:43 Metoprolol Tartrate 50 Mg Tab FEED TUBE 100 mg Q12HR CARMELA Administration Multi-Ingred Cream/Lotion/Oil/Oint 1 applic 01/07/24 21:00 01/23/24 20:48 Mineral Oil/White Petrolatum Ointment EACH EYE 1 applic Q12HR CARMELA Administration Pantoprazole Sodium 40 mg 01/07/24 21:00 01/23/24 20:47 Pantoprazole Sodium Iv 40 Mg Vial IV PUSH 40 mg Q12HR CARMELA Administration Vancomycin HCl 1 each 01/20/24 14:59 Vancomycin For Hemodialysis IVPB PRN PRN Vancomycin Protocol Radiology Results: ITS Impressions Abdomen/Pelvis CT 01/07/24 16:52 IMPRESSION: No acute abdominopelvic process. Specifically, there is no CT evidence of bowel obstruction. No definite evidence of renal injury, noting that low-grade renal injury as can be difficult to detect without contrast. Renal Ultrasound 01/08/24 10:47 IMPRESSION: 1. Normal kidney sizes. No hydronephrosis. Chest/Abdomen/Pelvis CT 01/12/24 15:08 IMPRESSION: Interval enlargement of the liver, when compared with previous examination. Flattening of the inferior vena cava suggesting severe hypovolemia. Interval development of basilar atelectasis and trace bilateral pleural effusions. No additional findings which represents a change from prior examination performed 01/07/2024. Supportive devices are in good position. Redemonstration of multiple stones within the gallbladder which is not distended. Head CT 01/12/24 15:31 IMPRESSION: 1. 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 2. Large distribution of chronic encephalomalacia in the expected distribution of left middle cerebral artery. Abdomen Ultrasound 01/13/24 09:31 IMPRESSION: 1. Cholelithiasis. 2. Normal liver Doppler. Arterial/Peripheral Duplex 01/13/24 09:31 IMPRESSION: 1. Cholelithiasis. 2. Normal liver Doppler. Venous Doppler Study 01/15/24 17:14 IMPRESSION: 1. Deep vein thrombosis involving left common femoral vein. ADDENDUM: 01/15/24 9950 I called this result to Apurva Mclean. Abdomen X-Ray 01/16/24 06:03 Impression: NG tube in satisfactory position. IVC Filter Placement X-Ray 01/20/24 06:18 IMPRESSION: Fluoroscopy used during IVC filter insertion. Chest X-Ray 01/24/24 06:07 IMPRESSION: 1. Stable mild atelectasis at left lung base. Labs Labs: Laboratory Results - last 24 hr 01/23/24 01/23/24 01/23/24 11:58 16:32 20:40 WBC RBC Hgb Hct MCV MCH MCHC RDW Plt Count MPV Sodium Potassium Chloride Carbon Dioxide Anion Gap BUN Creatinine Estim Creat Clear Calc Estimated GFR Glucose POC Capillary Glucose 237 H 251 H 217 H Calcium Phosphorus Magnesium Total Bilirubin AST ALT Alkaline Phosphatase Total Protein Albumin Random Vancomycin 01/24/24 01/24/24 01/24/24 00:14 04:07 05:52 WBC 8.7 RBC 2.38 L Hgb 7.0 L Hct 23.2 L MCV 97.5 MCH 29.4 MCHC 30.2 L RDW 18.2 H Plt Count 365 MPV 11.2 H Sodium 138 Potassium 3.9 Chloride 101 Carbon Dioxide 23 Anion Gap 14 H BUN 138 H Creatinine 6.40 H Estim Creat Clear Calc 9 Estimated GFR 7 L Glucose 176 H POC Capillary Glucose 200 H 200 H Calcium 8.5 Phosphorus 4.6 H Magnesium 2.8 H Total Bilirubin 0.5 AST 33 ALT 23 Alkaline Phosphatase 100 Total Protein 6.0 L Albumin 2.9 L Random Vancomycin 01/24/24 01/24/24 07:10 07:38 WBC RBC Hgb Hct MCV MCH MCHC RDW Plt Count MPV Sodium Potassium Chloride Carbon Dioxide Anion Gap BUN Creatinine Estim Creat Clear Calc Estimated GFR Glucose POC Capillary Glucose 179 H Calcium Phosphorus Magnesium Total Bilirubin AST ALT Alkaline Phosphatase Total Protein Albumin Random Vancomycin 16.5 Quality VTE Prophylaxis VTE prophylaxis: mechanical ordered and pharmacologic ordered
[2024-01-24] MEDS: INSULIN GLARGINE (*BKC) 100 UNITS/ML 95 UNITS SUB-Q ×2 (08:12→21:25)
[2024-01-24] MEDS: PANTOPRAZOLE SODIUM IV 40 MG VIAL IV PUSH ×2 (08:13→21:15)
[2024-01-24] MEDS: MINERAL OIL/WHITE PETROLATUM OINTMENT 1 APPLIC EACH EYE ×2 (08:13→21:15)
[2024-01-24] MEDS: MIDAZOLAM HCL (*CRX) 2 MG/2 ML VIAL 4 MG IV PUSH (08:37)
--- NOTE | 2024-01-24 09:06 | P.PCNBED_ITS ---
Procedures Central Line Placement Right IJ: Central Line Date: 01/24/24 Central Line Time: 08:45 Discussed w/ the patient/family/POA,the placement of a central venous catheter, including its clinical necessity/indication & associated potential risks, benifits and alternatives.: Yes The patient/family/POA understand(s) and acknowledge(s) the need to proceed with central venous catheter insertion as an important element of the patient's clinical management.: Yes Consent: Patient had a right IJ temporary dialysis catheter which was not functioning properly due to high pressure on dialysis machine. I have discussed with the patient son, the non-emergent replacement of temporary dialysis catheter, including its clinical necessity/indication and associated potential risks and complications. The patient's son understand(s) and acknowledge(s) the need to proceed with replacement of temporary dialysis catheter as an important element of the patient's clinical management. Consent was obtained by phone. Family is waiting for patient's sister to right Flomax 0 4 proceeding with palliative extubation and comfort care but at this time would like to continue with dialysis. Time Out Performed: Yes Patient Position: supine Patient placed on monitor/pulse ox: Yes Provider Prep: mask, sterile gown, sterile gloves, Max. sterile barrier pr ecautions, cap and hand hygiene with conventional soap/water or alcohol based hand rub Central line prep: Povidone-Iodine 1% Central line lumen inserted: triple Citizen Of [place]: 12 Length (cm): 16 Depth of Insertion (cm): 16 Post Procedure: sutured in place, good blood return, all ports aspirated, flushed, capped, transparent dressing and aseptic technique maintained throughout procedure Post procedure x-ray: tip of catheter in good position Patient tolerated procedure: well Complications: none
--- NOTE | 2024-01-24 10:54 | PCFNICU ---
ICU Rounding Note: Pt current nutrition is Nepro at 50 ml/hr. Last recorded weight is 84.6 kg, up from 79.5 kg on admit. Bowel Motility: FMS Labs Reviewed: Mg 2.8, BUN 138, GFR 7, Cr 6.4, Glu 176, Alb 2.9, Hgb 7.0, Hct 23.2 Meds Noted:Protonix, Keppra, Lipitor. Skin: WNL Additional Notes: Patient remains on mechanical vent. Tube feedings remain of Nepro at 50 ml/hr and tolerating per nursing. Flush 50 ml q 4 hours. Agree with diet orders. Dialysis planned for today, no dialysis due to to catheter function. At this time, plans of care is to continue with current care. Awaiting sisters arrival from [place]. Monitoring tube feeding tolerance, labs, weights, output, plan of care Follow up daily in rounds, reassess Monday and Monday.
[2024-01-24 12:08] LABS: Glucose Point of Care 167 mg/dl (65-105)
--- NOTE | 2024-01-24 12:16 | P.PNNP_ITS ---
Progress Note: A&P Assessment and Plan (1) Acute kidney failure: Code(s): N17.9 - Acute kidney failure, unspecified Status: Acute Assessment and Plan: * baseline creatinine not known * reportedly has some underlying renal insufficiency/CKD per family * still awaiting outside records * evaluation to date noted: * CT of abd/pelvis and renal ultrasound negative for obstruction * urine eosinophils negative * CPK normal * urine electrolytes non-prerenal * UA suggestive of infection * proteinuria noted complicated by severe acidosis and hyperkalemia on admission * etiology likely multifactorial: * infection/sepsis * hemodynamic instability/shock * SRINIVAS-I + HCTZ use prior to admission * possible prerenal factors * metformin use prior to admission * continued BP medications prior to admission * no improvement in mental status with dialytic interventions * stable electrolytes but declining urine output noted * attempt HD today again (2) Septic shock: Code(s): A41.9 - Sepsis, unspecified organism; R65.21 - Severe sepsis with septic shock Status: Resolved Assessment and Plan: * resolved * initially normotensive on presentation * however, worsening hypotension in the ER * s/p aggressive IVF resuscitation * presumed source = aspiration pneumonia + UTI * blood and urine cultures negative -- still with on/off fevers * repeat cultures noted * on antibiotics * off pressors * follow hemodynamics (3) Acute respiratory failure: Code(s): J96.00 - Acute respiratory failure, unspecified whether with hypoxia or hypercapnia Status: Acute Assessment and Plan: * due to AMS + emesis and concerns for aspiration and inability to protect airway * intubated and on mechanical ventilation * continue ventilator support - off sedation * weaning as tolerated but mentation is still an issue (4) Encephalopathy: Code(s): G93.40 - Encephalopathy, unspecified Status: Acute Assessment and Plan: * as noted by presentation of altered mental status, delirium, and confusion * CT of brain shows several strokes * TSH and ammonia levels noted * HD did not help the mental status * still unresponsive (5) Stroke: Code(s): I63.9 - Cerebral infarction, unspecified Status: Acute Assessment and Plan: * as noted by repeat CT of head on 01/11: * Extensive bilateral acute infarcts in the expected distributions of the bilateral middle cerebral arteries. * presumably secondary to hypotension * Echo did not show any thrombus or ASD * remains unresponsive at this time (6) Anemia: Code(s): D64.9 - Anemia, unspecified Status: Acute Assessment and Plan: * noted drop in H/H by labs on 01/16 * was on heparin gtt for left LE DVT (but off now) * PRBC transfusion per protocol * ALICE with dialysis * follow trend of H/H (7) Deep vein thrombosis of left lower extremity: Code(s): I82.402 - Acute embolism and thrombosis of unspecified deep veins of left lower extremity Status: Acute Assessment and Plan: * as noted by LE dopplers * s/p IVC filter placement on 01/18/24 (8) Insulin dependent diabetes mellitus: Status: Chronic Assessment and Plan: * follow accu-checks * 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 Subjective Date/time seen: 01/24/24 12:16 Interval history: Follow-up for acute kidney injury/acute renal failure (on chronic kidney disease?). Dialysis treatment aborted yesterday and multiple attempt to get HD catheter to work failed; HD catheter guidewire exchanged earlier today so will attempt dialysis treatment later this afternoon; otherwise, no significant change noted at this time. Exam Narrative: General: somewhat ill appearing female intubated and on mechanical ventilation Heart: normal S1 and S2; no rub Lungs: coarse breath sounds bilaterally Abdomen: soft, nontender, nondistended, positive bowel sounds Extremities: no cyanosis or clubbing; no edema Skin: warm and dry Objective Data Vital Signs Vital Signs: Vital Signs: Vital Signs - 24 hr 01/23/2416:00 01/23/2416:00 01/23/2416:30 Temperature 99.0 F Pulse Rate 94 92 Respiratory Rate 13 Blood Pressure 111/57 L Pulse Oximetry 100 100 Oxygen Delivery Mechanical Ventilation Fraction of Inspired Oxygen 01/22/2417:46 01/23/2416:00 01/22/2418:00 Temperature Pulse Rate 91 81 81 Respiratory Rate Blood Pressure Pulse Oximetry Oxygen Delivery Fraction of Inspired Oxygen 01/23/2416:00 01/22/2418:00 01/22/2419:44 Temperature 99 F Pulse Rate 80 76 84 Respiratory Rate 17 Blood Pressure 153/78 H Pulse Oximetry 100 93 100 Oxygen Delivery Mechanical Ventilation Mechanical Ventilation Fraction of Inspired Oxygen 21 21 01/22/2422:24 01/23/2420:00 01/23/2420:00 Temperature 99.1 F Pulse Rate 87 83 Respiratory Rate 10 L Blood Pressure 126/65 Pulse Oximetry 100 100 Oxygen Delivery Mechanical Ventilation Fraction of Inspired Oxygen 21 21 01/23/2420:00 01/22/2422:01/23/2420: Temperature 99.0 F Pulse Rate 87 83 Respiratory Rate 13 Blood Pressure 148/57 H Pulse Oximetry 100 100 Oxygen Delivery Mechanical Ventilation Fraction of Inspired Oxygen 21 01/22/2422:00 01/24/2400:00 01/24/2400: Temperature 99.1 F Pulse Rate 87 90 Respiratory Rate 6 L Blood Pressure 158/66 H Pulse Oximetry 100 Oxygen Delivery Fraction of Inspired Oxygen 21 01/24/2400:00 01/24/2400:00 01/23/2402: Temperature Pulse Rate 91 95 Respiratory Rate Blood Pressure Pulse Oximetry 100 100 Oxygen Delivery Mechanical Ventilation Mechanical Ventilation Fraction of Inspired Oxygen 21 21 01/23/2402:00 01/23/2402:01/24/2404: Temperature 99.6 F 100.0 F H Pulse Rate 93 93 91 Respiratory Rate 19 11 L Blood Pressure 127/79 120/58 L Pulse Oximetry 100 100 Oxygen Delivery Fraction of Inspired Oxygen 01/24/2404:56 01/24/2404:00 01/23/2406: Temperature Pulse Rate 96 89 90 Respiratory Rate Blood Pressure Pulse Oximetry 100 Oxygen Delivery Mechanical Ventilation Fraction of Inspired Oxygen 21 01/24/2404:00 01/24/2404:00 01/23/2406: Temperature 99.3 F Pulse Rate 90 Respiratory Rate 12 Blood Pressure 135/60 Pulse Oximetry 100 100 Oxygen Delivery Mechanical Ventilation Fraction of Inspired Oxygen 21 21 01/24/2408:08 01/24/2408:00 01/24/2408: Temperature 99.3 F Pulse Rate 90 91 90 Respiratory Rate 14 Blood Pressure 139/56 L Pulse Oximetry 100 100 Oxygen Delivery Mechanical Ventilation Fraction of Inspired Oxygen 21 01/24/2408:00 01/23/2410:00 01/24/2408: Temperature 98.7 F Pulse Rate 85 Respiratory Rate 15 Blood Pressure 124/58 L Pulse Oximetry 100 100 Oxygen Delivery Mechanical Ventilation Fraction of Inspired Oxygen 21 21 01/23/2410:00 01/23/2410:58 01/24/2412:00 Temperature Pulse Rate 91 92 Respiratory Rate Blood Pressure Pulse Oximetry 100 100 Oxygen Delivery Mechanical Ventilation Mechanical Ventilation Fraction of Inspired Oxygen 21 21 01/24/2412:00 01/24/2412:00 01/24/2412:00 Temperature 99.0 F Pulse Rate 92 94 Respiratory Rate 10 L Blood Pressure 137/67 Pulse Oximetry 100 Oxygen Delivery Fraction of Inspired Oxygen 21 Intake/Output Intake/Output: Intake & Output 01/23/24 01/24/24 01/25/24 01/26/24 23:59 23:59 23:59 23:59 Intake Total 1849 1825 2041 721 Output Total 399 521 5815 1755 Balance [phone] Meds/Results Medications: Active Medications Generic Name Dose Route Start Last Admin Trade Name Freq PRN Reason Stop Dose Admin Acetaminophen 650 mg 01/10/24 08:02 01/20/24 16:00 Acetaminophen 325 Mg Tablet FEED TUBE 650 mg Q6H PRN Administration Mild Pain (1-3) or Fever Alteplase, Recombinant 2 mg 01/23/24 09:15 01/23/24 09:57 Alteplase 2 Mg Vial (Cathflo) IV PUSH 2 mg ONCE PRN Administration Line Occlusion Alteplase, Recombinant 2 mg 01/23/24 09:15 Alteplase 2 Mg Vial (Cathflo) IV PUSH ONCE PRN Line Occlusion Amlodipine Besylate 10 mg 01/22/24 08:50 01/26/24 08:04 Amlodipine Besylate 10 Mg Tablet FEED TUBE 10 mg DAILY CARMELA Administration Aspirin 325 mg 01/12/24 16:00 01/17/24 08:43 Aspirin 325 Mg Tablet FEED TUBE 325 mg DAILY@0800 CARMELA Administration Atorvastatin Calcium 40 mg 01/13/24 09:00 01/26/24 08:04 Atorvastatin 40 Mg Tablet FEED TUBE 40 mg DAILY CARMELA Administration Dextrose 12.5 gm 01/07/24 13:18 01/26/24 08:02 Dextrose 50% 25 Gm/50 Ml Syringe IV PUSH 12.5 gm PRN PRN Administration Hypoglycemia Protocol Epoetin Dane-epbx 10,000 units 01/12/24 09:20 01/26/24 08:16 Epoetin Dane-Epbx 10,000 Units/Ml Vial SUB-Q 10,000 units MOWEFR@09 CARMELA Administration Glucagon 1 mg 01/07/24 13:18 Glucagon For Inj 1 Mg Vial IM PRN PRN Hypoglycemia Protocol Glucose 15 gm 01/07/24 13:18 Glucose Oral Gel 15 Gm Of Glucse In 37.5 Gm Tube PO PRN PRN Hypoglycemia Protocol Hydralazine HCl 10 mg 01/18/24 02:20 01/18/24 05:40 Hydralazine 10 Mg Tablet PO Not Given Q6HR CARMELA Dextrose 1,000 mls @ 100 mls/hr 01/07/24 13:18 Dextrose 5% 1,000 Ml IVPB PRN PRN Hypoglycemia Protocol Albumin Human 50 mls @ 999 mls/hr 01/07/24 17:11 01/26/24 10:38 Albutein IVPB 03/07/24 17:10 50 mls/hr Q10M PRN Administration HYPOTENSION Levetiracetam 500 mg in 100 mls @ 400 mls/hr 01/07/24 21:00 01/25/24 21:14 Keppra Iv IVPB Infused Q24H CARMELA Infusion Micafungin Sodium 100 mg/ 100 mls @ 100 mls/hr 01/20/24 16:00 01/26/24 15:31 Sodium Chloride IVPB 100 mls/hr Q24H CARMELA Administration Meropenem 500 mg in 100 mls @ 200 mls/hr 01/22/24 18:00 01/25/24 20:22 IVPB Infused Q24H CARMELA Infusion Insulin Aspart 4 - 8 units 01/10/24 07:55 01/26/24 16:34 Insulin Aspart (*Bkc) 100 Units/Ml SUB-Q Not Given Q4H [facility] Protocol Insulin Glargine 80 units 01/26/24 09:00 Insulin Glargine (*Bkc) 100 Units/Ml SUB-Q Q12H CARMELA Labetalol HCl 10 mg 01/18/24 08:37 01/25/24 23:12 Labetalol Hcl Inj 100 Mg/20 Ml Vial IV PUSH 10 mg Q4H PRN Administration Hypertension Metoprolol Tartrate 100 mg 01/16/24 09:00 01/17/24 08:43 Metoprolol Tartrate 50 Mg Tab FEED TUBE 100 mg Q12HR CARMELA Administration Multi-Ingred Cream/Lotion/Oil/Oint 1 applic 01/07/24 21:00 01/26/24 08:05 Mineral Oil/White Petrolatum Ointment EACH EYE 1 applic Q12HR CARMELA Administration Pantoprazole Sodium 40 mg 01/07/24 21:00 01/26/24 08:04 Pantoprazole Sodium Iv 40 Mg Vial IV PUSH 40 mg Q12HR CARMELA Administration Vancomycin HCl 1 each 01/20/24 14:59 Vancomycin For Hemodialysis IVPB PRN PRN Vancomycin Protocol Radiology Results: ITS Impressions Abdomen/Pelvis CT 01/07/24 16:52 IMPRESSION: No acute abdominopelvic process. Specifically, there is no CT evidence of bowel obstruction. No definite evidence of renal injury, noting that low-grade renal injury as can be difficult to detect without contrast. Renal Ultrasound 01/08/24 10:47 IMPRESSION: 1. Normal kidney sizes. No hydronephrosis. Chest/Abdomen/Pelvis CT 01/12/24 15:08 IMPRESSION: Interval enlargement of the liver, when compared with previous examination. Flattening of the inferior vena cava suggesting severe hypovolemia. Interval development of basilar atelectasis and trace bilateral pleural effusions. No additional findings which represents a change from prior examination performed 01/07/2024. Supportive devices are in good position. Redemonstration of multiple stones within the gallbladder which is not distended. Head CT 01/12/24 15:31 IMPRESSION: 1. 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 2. Large distribution of chronic encephalomalacia in the expected distribution of left middle cerebral artery. Abdomen Ultrasound 01/13/24 09:31 IMPRESSION: 1. Cholelithiasis. 2. Normal liver Doppler. Arterial/Peripheral Duplex 01/13/24 09:31 IMPRESSION: 1. Cholelithiasis. 2. Normal liver Doppler. Venous Doppler Study 01/15/24 17:14 IMPRESSION: 1. Deep vein thrombosis involving left common femoral vein. ADDENDUM: 01/15/24 [id number] I called this result to Apurva Mclean. Abdomen X-Ray 01/16/24 06:03 Impression: NG tube in satisfactory position. IVC Filter Placement X-Ray 01/20/24 06:18 IMPRESSION: Fluoroscopy used during IVC filter insertion. Chest X-Ray 01/26/24 06:15 IMPRESSION: 1. Stable mild atelectasis at left lung base. Labs Labs: Laboratory Results - last 24 hr 01/24/24 05:52 WBC 8.7 Hgb 7.0 L Hct 23.2 L Plt Count 365 Sodium 138 Potassium 3.9 Chloride 101 Carbon Dioxide 23 Anion Gap 14 H BUN 138 H Creatinine 6.40 H Estim Creat Clear Calc 9 Estimated GFR 7 L Glucose 176 H Calcium 8.5 Phosphorus 4.6 H Magnesium 2.8 H Total Bilirubin 0.5 AST 33 ALT 23 Alkaline Phosphatase 100 Total Protein 6.0 L Albumin 2.9 L Random Vancomycin
--- NOTE | 2024-01-24 15:50 | P.PNIM_ITS ---
Progress Note: A&P Assessment and Plan (1) Septic shock: Code(s): A41.9 - Sepsis, unspecified organism; R65.21 - Severe sepsis with septic shock Status: Acute Assessment and Plan: RESOLVED Patient hypotensive on presentation Patient was given IV fluid bolus followed by maintenance IV fluids -lactic acid has improved -Levophed weaned off -off IV fluids -source appears to be UTI. Urine and blood cultures are negative till now, STATUS POST CEFTRIAXONE -status post stress dose steroids - 01/10 continues to have fever although other markers of infection are improved as normal WBC. 01/10: Repeat blood cultures are negative x2 Clark catheter change 01/11 Minimal respiratory secretions, sputum cultures growing yeast which is likely a colonization Change Rocephin to cefepime and vancomycin 01/14: Patient continues to have low-grade fever but overall fever curve is down. White count is normal. CT scan of chest and pelvis does not show any area suggestive of infection. Clark catheter was changed. Procalcitonin level is also on the lower side. Continue cefepime but will discontinue vancomycin at this time. Cultures are negative till now. -lipase was within normal limits -01/15/2024: lower extremity venous Dopplers: Left common femoral vein DVT -01/14: patient was started on heparin infusion OFF all abx 01/18: Remains febrile, patient has been carl cultured this morning, WBC trending up -chest x-ray is not show any new infiltrates -holding antibiotics for now, if patient continues to spike fevers and WBC count increase tomorrow will add antibiotics 01/18: Blood culture growing Gram-positive cocci in clusters 1/2 bottles 01/18: Urine cultures growing Tatiana albicans 01/18: Sputum cultures growing Yeast 01/19: Patient remained febrile with T-max of 101.3. Patient was started on vancomycin, meropenem and micafungin (01/19) which will be continued. Fever curve improving since starting antibiotics, continue antibiotics and antifungals as above (2) Stroke: Code(s): I63.9 - Cerebral infarction, unspecified Status: Acute Assessment and Plan: Patient presented with altered mental status but at that time patient was respiratory failure acute renal failure acidosis and sepsis. CT scan on presentation showed only old stroke and encephalomalacia Since then patient has not woken up despite holding sedation for multiple days and dialysis. 01/[address] was done which showed. 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 These are likely secondary to hypotension Echo did not show any thrombus or ASD Continue aspirin and statin Neurology following EEG 01/12 - This is an abnormal EEG due to presence of moderate diffuse background slowing suggested generalized cephalopathy. No significant change in neurological status (3) Encephalopathy: Code(s): G93.40 - Encephalopathy, unspecified Status: Acute Assessment and Plan: Patient presented with encephalopathy, altered mental status, delirium, confusion -most likely related to uremia, infection, severe acidosis and baseline flow malacia from past stroke TSH and ammonia normal Patient has been off sedation since 01/09/2024. Still not responsive.. Will continue hold sedatives. EEG as above Patient was dialyzed 01/11 to help with drug removal. Minimal improved Encephalopathy likely secondary to strokes. See above. Neurology following -patient has been off sedation since 01/09/2024, has not woken up -01/16: Ammonia levels are normal 01/11: Repeat CT scan of the brain IMPRESSION: 1. 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 2. Large distribution of chronic encephalomalacia in the expected distribution o f left middle cerebral artery. 01/06: CT brain on admission IMPRESSION: 1. No acute intracranial process. 2. 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 3. Additional more diffuse likely age-related mild to moderate diffuse volume loss and mild scattered white matter hypoattenuation consistent with chronic small vessel ischemic disease. (4) Acute respiratory failure: Code(s): J96.00 - Acute respiratory failure, unspecified whether with hypoxia or hypercapnia Status: Acute Assessment and Plan: Patient had an episode of emesis in the ER, given her altered mental status encephalopathy, risk of aspiration with impending respiratory failure patient was intubated on 01/06/2025 -chest x-ray and ABG reviewed -patient currently on ASV mode of ventilation, peep of 5, 21% FiO2 and tolerating. Will change to 75% minute ventilation -sedation is on hold since 01/09/2024 -weaning will depend on improvement in mental status. (5) Acute kidney failure: Code(s): N17.9 - Acute kidney failure, unspecified Status: Acute Assessment and Plan: On chronic kidney injury, unknown cause, CT of the abdomen and pelvis did not show any hydronephrosis or urinary obstruction -significant lactic acidosis and metabolic acidosis -patient has a history of diabetes, hypertension which is likely the cause of chronic kidney disease -patient on lisinopril hydrochlorothiazide and metformin at home -patient was given a total of 3 L IV fluid bolus, 1 L in the ER and 2 L in the ICU -sodium bicarb IV pushes x4 in the ICU -patient was started on sodium bicarb infusion after discussing with Nephrology, which her was discontinued once hemodialysis was started -patient was started on hemodialysis and was dialyzed x 3 days -patient continues to have decent urine output - 01/11 patient was dialyzed again 1 L fluid was removed -continue to monitor urine output, electrolytes and renal function -01/16: worsening creatinine, increased edema, decreased urine output. Discussed with Nephrology, patient will dialyzed - 01/22 patient would not be dialyzed due to issues with the catheter. Both ports were flushing and rowing but patient were having high pressure limiting flow. Will plan to change catheter today and re-attempt dialysis. (6) Metabolic acidosis: Code(s): E87.20 - Acidosis, unspecified Status: Acute Assessment and Plan: RESOLVED Patient presented with significant metabolic acidosis and lactic acidosis. This could be combination of septic shock, acute kidney injury but also a possibility of metformin toxicity Patient received hemodialysis and IV bicarb. Acidosis has resolved. Further dialysis per Nephrology (7) Diastolic dysfunction: Code(s): I51.89 - Other ill-defined heart diseases Status: Acute Assessment and Plan: Echo 01/11 Summary 1. Left ventricular systolic function is normal, estimated at 60-65%. 2. There is moderately increased left ventricular wall thickness. 3. Intact interatrial septum visualized by agitated saline imaging. 4. There is mild aortic valve calcification. 5. There is mild aortic valve stenosis with a peak velocity of 190 cm/s,mean gradient of 8 mmHg, and aortic valve area of 1.8 cm2. 6. There is mild tricuspid valve regurgitation. 7. Mild pulmonary hypertension, estimated pulmonary arterial systolicpressure is 46 mmHg. (8) Insulin dependent diabetes mellitus: Status: Chronic Assessment and Plan: Continue sliding scale insulin Accu-Cheks Continue Lantus at current dose (9) Right hemiparesis: Code(s): G81.91 - Hemiplegia, unspecified affecting right dominant side Status: Acute Assessment and Plan: History of left-sided cerebral hemisphere and CVA, residual mild aphasia and right-sided weakness (10) Seizures: Code(s): R56.9 - Unspecified convulsions Status: Acute Assessment and Plan: Patient has a history of seizures, on p.o. Keppra 500 mg p.o. q.12 hours Continue Keppra IV 500 mg IV q.24 (discuss with pharmacist) EEG negative for any seizure-like activity (11) Hypertension: Code(s): I10 - Essential (primary) hypertension Status: Acute Assessment and Plan: Blood pressures have been labile, will hold metoprolol, hydralazine and amlodipine for now -patient has p.r.n. labetalol -01/21: patient has been requiring multiple doses of p.r.n. labetalol as blood pressures are elevated, will restart amlodipine (12) Anemia: Code(s): D64.9 - Anemia, unspecified Status: Acute Assessment and Plan: 01/16: Patient has been on heparin infusion for DVT in the right common femoral vein. Dropped hemoglobin this morning to 6.7 from 7.8. - heparin infusion Discontinued -stool for Hemoccult was Negative -01/17: IVC filter placement by surgery Transfuse if hemoglobin less than 7 Monitor Subjective Date/time seen: 01/24/24 15:50 Interval history: No acute events reported overnight Review of Systems Review of Systems: Unable to obtain due to mental status ROS unobtainable: Yes unobtainable due to endotracheal tube, unobtainable due to medical condition and unobtainable due to mental status Exam Narrative: General: Intubated and sedated HEENT:? Pupils are equal and reactive to light, patient has positive corneal reflex, sclera is clear, ETT in place, facial puffiness noted Neck:? Supple, right IJ dialysis catheter in place Respiratory:? Coarse breath sounds bilaterally, decreased at bases no wheezing, adequate air entry Cardiac:? S1-S2 normal, regular rate and rhythm, Abdomen:? Soft, nontender, nondistended, hypoactive bowel sounds, old midline surgical scar noted Extremities:? Dry skin, decreased pedal pulses, pitting edema bilateral upper and lower extremities Neuro:? Patient is intubated, off sedation, PERRL, patient withdraws to pain stimulus in bilateral lower extremities, decerebrate posturing of the upper extremities on pain stimuli. Skin:? Dry and flaky skin on lower extremities, skin is warm Psych:? Unable to assess at this time Objective Data Vital Signs Vital Signs: Vital Signs - 24 hr 01/23/24 16:00 01/23/24 16:00 01/23/24 16:30 Temperature 99.0 F Pulse Rate 94 92 Respiratory Rate 13 Blood Pressure 111/57 L Pulse Oximetry 100 100 Oxygen Delivery Mechanical Ventilation Fraction of Inspired Oxygen 21 01/23/24 17:46 01/23/24 16:00 01/23/24 18:00 Temperature Pulse Rate 91 81 81 Respiratory Rate Blood Pressure Pulse Oximetry Oxygen Delivery Fraction of Inspired Oxygen 01/23/24 16:00 01/23/24 18:00 01/23/24 19:44 Temperature 99 F Pulse Rate 80 76 84 Respiratory Rate 17 Blood Pressure 153/78 H Pulse Oximetry 100 93 100 Oxygen Delivery Mechanical Ventilation Mechanical Ventilation Fraction of Inspired Oxygen 21 01/23/24 22:24 01/23/24 20:00 01/23/24 20:00 Temperature 99.1 F Pulse Rate 87 83 Respiratory Rate 10 L Blood Pressure 126/65 Pulse Oximetry 100 100 Oxygen Delivery Mechanical Ventilation Fraction of Inspired Oxygen 21 01/23/24 20:00 01/23/24 22:00 01/23/24 20:00 Temperature 99.0 F Pulse Rate 87 83 Respiratory Rate 13 Blood Pressure 148/57 H Pulse Oximetry 100 100 Oxygen Delivery Mechanical Ventilation Fraction of Inspired Oxygen 01/23/24 22:00 01/24/24 00:00 01/24/24 00:00 Temperature 99.1 F Pulse Rate 87 90 Respiratory Rate 6 L Blood Pressure 158/66 H Pulse Oximetry 100 Oxygen Delivery Fraction of Inspired Oxygen 01/24/24 00:00 01/24/24 00:00 01/24/24 02:13 Temperature Pulse Rate 91 95 Respiratory Rate Blood Pressure Pulse Oximetry 100 100 Oxygen Delivery Mechanical Ventilation Mechanical Ventilation Fraction of Inspired Oxygen 21 01/24/24 02:00 01/24/24 02:00 01/24/24 04:00 Temperature 99.6 F 100.0 F H Pulse Rate 93 93 91 Respiratory Rate 19 11 L Blood Pressure 127/79 120/58 L Pulse Oximetry 100 100 Oxygen Delivery Fraction of Inspired Oxygen 01/24/24 04:56 01/24/24 04:00 01/24/24 06:00 Temperature Pulse Rate 96 89 90 Respiratory Rate Blood Pressure Pulse Oximetry 100 Oxygen Delivery Mechanical Ventilation Fraction of Inspired Oxygen 21 01/24/24 04:00 01/24/24 04:00 01/24/24 06:00 Temperature 99.3 F Pulse Rate 90 Respiratory Rate 12 Blood Pressure 135/60 Pulse Oximetry 100 100 Oxygen Delivery Mechanical Ventilation Fraction of Inspired Oxygen 21 21 01/24/24 08:08 01/24/24 08:00 01/24/24 08:00 Temperature 99.3 F Pulse Rate 90 91 90 Respiratory Rate 14 Blood Pressure 139/56 L Pulse Oximetry 100 100 Oxygen Delivery Mechanical Ventilation Fraction of Inspired Oxygen 21 01/24/24 08:00 01/24/24 10:00 01/24/24 08:00 Temperature 98.7 F Pulse Rate 85 Respiratory Rate 15 Blood Pressure 124/58 L Pulse Oximetry 100 100 Oxygen Delivery Mechanical Ventilation Fraction of Inspired Oxygen 21 21 01/24/24 10:00 01/24/24 10:58 01/24/24 12:00 Temperature Pulse Rate 91 92 Respiratory Rate Blood Pressure Pulse Oximetry 100 100 Oxygen Delivery Mechanical Ventilation Mechanical Ventilation Fraction of Inspired Oxygen 21 21 01/24/24 12:00 01/24/24 12:00 01/24/24 12:00 Temperature 99.0 F Pulse Rate 92 94 Respiratory Rate 10 L Blood Pressure 137/67 Pulse Oximetry 100 Oxygen Delivery Fraction of Inspired Oxygen 21 01/24/24 13:28 01/24/24 14:00 01/24/24 14:00 Temperature 99.3 F Pulse Rate 88 88 90 Respiratory Rate 18 Blood Pressure 140/52 L Pulse Oximetry 100 100 Oxygen Delivery Mechanical Ventilation Fraction of Inspired Oxygen 21 Intake/Output Intake/Output: Intake & Output 01/21/24 01/22/24 01/23/24 01/24/24 23:59 23:59 23:59 23:59 Intake Total 1853 1856 1749 605 Output Total 80 320 225 500 Balance 1773 1536 1524 105 Meds/Results Medications: Active Medications Generic Name Dose Route Start Last Admin Trade Name Freq PRN Reason Stop Dose Admin Acetaminophen 650 mg 01/10/24 08:02 01/20/24 16:00 Acetaminophen 325 Mg Tablet FEED TUBE 650 mg Q6H PRN Administration Mild Pain (1-3) or Fever Alteplase, Recombinant 2 mg 01/23/24 09:15 01/23/24 09:57 Alteplase 2 Mg Vial (Cathflo) IV PUSH 2 mg ONCE PRN Administration Line Occlusion Alteplase, Recombinant 2 mg 01/23/24 09:15 Alteplase 2 Mg Vial (Cathflo) IV PUSH ONCE PRN Line Occlusion Amlodipine Besylate 10 mg 01/22/24 08:50 01/23/24 10:23 Amlodipine Besylate 10 Mg Tablet FEED TUBE Not Given DAILY CARMELA Aspirin 325 mg 01/12/24 16:00 01/17/24 08:43 Aspirin 325 Mg Tablet FEED TUBE 325 mg DAILY@0800 CARMELA Administration Atorvastatin Calcium 40 mg 01/13/24 09:00 01/23/24 07:58 Atorvastatin 40 Mg Tablet FEED TUBE 40 mg DAILY CARMELA Administration Dextrose 12.5 gm 01/07/24 13:18 Dextrose 50% 25 Gm/50 Ml Syringe IV PUSH PRN PRN Hypoglycemia Protocol Epoetin Dane-epbx 10,000 units 01/12/24 09:20 01/22/24 09:27 Epoetin Dane-Epbx 10,000 Units/Ml Vial SUB-Q 10,000 units MOWEFR@09 CARMELA Administration Glucagon 1 mg 01/07/24 13:18 Glucagon For Inj 1 Mg Vial IM PRN PRN Hypoglycemia Protocol Glucose 15 gm 01/07/24 13:18 Glucose Oral Gel 15 Gm Of Glucse In 37.5 Gm Tube PO PRN PRN Hypoglycemia Protocol Hydralazine HCl 10 mg 01/18/24 02:20 01/18/24 05:40 Hydralazine 10 Mg Tablet PO Not Given Q6HR CARMELA Dextrose 1,000 mls @ 100 mls/hr 01/07/24 13:18 Dextrose 5% 1,000 Ml IVPB PRN PRN Hypoglycemia Protocol Albumin Human 50 mls @ 999 mls/hr 01/07/24 17:11 01/12/24 10:30 Albutein IVPB 02/06/24 17:10 Infused Q10M PRN Infusion HYPOTENSION Levetiracetam 500 mg in 100 mls @ 400 mls/hr 01/07/24 21:00 01/23/24 20:47 Keppra Iv IVPB 400 mls/hr Q24H CARMELA Administration Micafungin Sodium 100 mg/ 100 mls @ 100 mls/hr 01/20/24 16:00 01/23/24 17:40 Sodium Chloride IVPB Infused Q24H CARMELA Infusion Meropenem 500 mg in 100 mls @ 200 mls/hr 01/22/24 18:00 01/23/24 18:16 IVPB Infused Q24H CARMELA Infusion Vancomycin HCl 750 mg in 250 mls @ 250 mls/hr 01/24/24 18:00 Vancomycin 750 Mg/Ns 250 Ml IVPB 01/24/24 18:59 ONCE ONE Insulin Aspart 4 - 8 units 01/10/24 07:55 01/24/24 12:08 Insulin Aspart (*Bkc) 100 Units/Ml SUB-Q Not Given Q4H [facility] Protocol Insulin Glargine 95 units 01/23/24 09:00 01/24/24 08:12 Insulin Glargine (*Bkc) 100 Units/Ml SUB-Q 95 units Q12H CARMELA Administration Labetalol HCl 10 mg 01/18/24 08:37 01/23/24 17:46 Labetalol Hcl Inj 100 Mg/20 Ml Vial IV PUSH 10 mg Q4H PRN Administration Hypertension Metoprolol Tartrate 100 mg 01/16/24 09:00 01/17/24 08:43 Metoprolol Tartrate 50 Mg Tab FEED TUBE 100 mg Q12HR CARMELA Administration Multi-Ingred Cream/Lotion/Oil/Oint 1 applic 01/07/24 21:00 01/24/24 08:13 Mineral Oil/White Petrolatum Ointment EACH EYE 1 applic Q12HR CARMELA Administration Pantoprazole Sodium 40 mg 01/07/24 21:00 01/24/24 08:13 Pantoprazole Sodium Iv 40 Mg Vial IV PUSH 40 mg Q12HR CARMELA Administration Vancomycin HCl 1 each 01/20/24 14:59 Vancomycin For Hemodialysis IVPB PRN PRN Vancomycin Protocol Radiology Results: ITS Impressions Abdomen/Pelvis CT 01/07/24 16:52 IMPRESSION: No acute abdominopelvic process. Specifically, there is no CT evidence of bowel obstruction. No definite evidence of renal injury, noting that low-grade renal injury as can be difficult to detect without contrast. Renal Ultrasound 01/08/24 10:47 IMPRESSION: 1. Normal kidney sizes. No hydronephrosis. Chest/Abdomen/Pelvis CT 01/12/24 15:08 IMPRESSION: Interval enlargement of the liver, when compared with previous examination. Flattening of the inferior vena cava suggesting severe hypovolemia. Interval development of basilar atelectasis and trace bilateral pleural effusions. No additional findings which represents a change from prior examination performed 01/07/2024. Supportive devices are in good position. Redemonstration of multiple stones within the gallbladder which is not distended. Head CT 01/12/24 15:31 IMPRESSION: 1. 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 2. Large distribution of chronic encephalomalacia in the expected distribution of left middle cerebral artery. Abdomen Ultrasound 01/13/24 09:31 IMPRESSION: 1. Cholelithiasis. 2. Normal liver Doppler. Arterial/Peripheral Duplex 01/13/24 09:31 IMPRESSION: 1. Cholelithiasis. 2. Normal liver Doppler. Venous Doppler Study 01/15/24 17:14 IMPRESSION: 1. Deep vein thrombosis involving left common femoral vein. ADDENDUM: 01/15/24 [id number] I called this result to Apurva Mclean. Abdomen X-Ray 01/16/24 06:03 Impression: NG tube in satisfactory position. IVC Filter Placement X-Ray 01/20/24 06:18 IMPRESSION: Fluoroscopy used during IVC filter insertion. Chest X-Ray 01/24/24 09:22 IMPRESSION: 1. Central line tip at the superior cavoatrial junction. 2. Stable mild atelectasis in left lower lung zone. Labs Labs: Laboratory Results - last 24 hr 01/23/24 01/23/24 01/24/24 16:32 20:40 00:14 WBC RBC Hgb Hct MCV MCH MCHC RDW Plt Count MPV Sodium Potassium Chloride Carbon Dioxide Anion Gap BUN Creatinine Estim Creat Clear Calc Estimated GFR Glucose POC Capillary Glucose 251 H 217 H 200 H Calcium Phosphorus Magnesium Total Bilirubin AST ALT Alkaline Phosphatase Total Protein Albumin Random Vancomycin 01/24/24 01/24/24 01/24/24 04:07 05:52 07:10 WBC 8.7 RBC 2.38 L Hgb 7.0 L Hct 23.2 L MCV 97.5 MCH 29.4 MCHC 30.2 L RDW 18.2 H Plt Count 365 MPV 11.2 H Sodium 138 Potassium 3.9 Chloride 101 Carbon Dioxide 23 Anion Gap 14 H BUN 138 H Creatinine 6.40 H Estim Creat Clear Calc 9 Estimated GFR 7 L Glucose 176 H POC Capillary Glucose 200 H Calcium 8.5 Phosphorus 4.6 H Magnesium 2.8 H Total Bilirubin 0.5 AST 33 ALT 23 Alkaline Phosphatase 100 Total Protein 6.0 L Albumin 2.9 L Random Vancomycin 16.5 01/24/24 01/24/24 07:38 12:06 WBC RBC Hgb Hct MCV MCH MCHC RDW Plt Count MPV Sodium Potassium Chloride Carbon Dioxide Anion Gap BUN Creatinine Estim Creat Clear Calc Estimated GFR Glucose POC Capillary Glucose 179 H 167 H Calcium Phosphorus Magnesium Total Bilirubin AST ALT Alkaline Phosphatase Total Protein Albumin Random Vancomycin Quality VTE Prophylaxis VTE prophylaxis: mechanical ordered and pharmacologic ordered Hospitalist MIPS Advance Care Plan I have confirmed that the patient's Advanced Care Plan is present, code status is documented, or surrogate decision maker is listed in patient medical record.: Yes Medication Reconciliation I have utilized all available resources to obtain, update and review the patients current medications (includes all prescriptions, OTC, herbals, cannabis, and nutritional supplements).: Yes
[2024-01-24 17:02] LABS: Glucose Point of Care 158 mg/dl (65-105)
[2024-01-24] MEDS: MICAFUNGIN SODIUM 100 MG in SODIUM CHLORIDE 0.9% IV 100 ML IVPB (17:34)
[2024-01-24] MEDS: VANCOMYCIN 750 MG/NS 250 ML 750 MG/250 ML BAG 250 MG IVPB (17:41)
[2024-01-24] MEDS: MEROPENEM 500 MG/NS 100 ML 500 MG/100 ML BAG 200 MG IVPB (17:50)
[2024-01-24] MEDS: levETIRAcetam 500MG/NACL 100ML 500 MG/100 ML BAG 400 MG IVPB (21:14)
--- NOTE | 2024-01-24 21:20 | PC.NURSE ---
Call placed to Dr. Mallory in regards to patient's respiratory rate dropping as low as 9. MD with orders to change patient's vent settings from ASV back to CMV mode with the latest settings of TV 300 rate 14 FiO2 21 and peep of 5. Respiratory therapy made aware.
[2024-01-24 21:31] LABS: Glucose Point of Care 165 mg/dl (65-105)
[2024-01-25] VITALS (45 sets, daily range): BP systolic 103–170; BP diastolic 48–80; PULSE 78–98; RESP 14–21; TEMP 36–37.8; O2SAT 98–100
[2024-01-25 00:32] LABS: Glucose Point of Care 158 mg/dl (65-105)
[2024-01-25 04:15] LABS: Glucose Point of Care 143 mg/dl (65-105)
[2024-01-25 05:59] LABS: Hematocrit 21.6 % (37.0-47.0); Mean Corpuscular HGB Conc 28.7 g/dl (32-36); Mean Corpuscular Hemoglobin 28.4 pg (26-34); Mean Corpuscular Volume 99.1 fl (80-100); Mean Platelet Volume 11.1 fl (7.4-10.4); Platelet Count Result 349 k/mm3 (150-375); Red Blood Count 2.18 M/mm3 (4.2-5.4); Red Cell Distribution Width 18.6 % (11.5-14.5); White Blood Count 8.6 K/mm3 (4.5-10.0)
[2024-01-25 06:15] LABS: Hemoglobin 6.2 g/dL (12.0-15.0)
[2024-01-25 06:27] LABS: Alanine Aminotransferase 21 U/L (6-35); Albumin Level 2.7 g/dL (3.5-5.1); Alkaline Phosphatase 88 U/L (38-126); Anion Gap 9 mmol/L (4-12); Aspartate Amino Transferase 37 U/L (14-36); Bilirubin,Total 0.5 mg/dL (0.2-1.3); Calcium 8.3 mg/dL (8.4-10.2); Carbon Dioxide 26 mmol/L (22-30); Chloride 102 mmol/L (98-107); Estimated CRCL calculation 10 ml/min; Estimated Glomerular Filt Rate 7; Glucose 132 mg/dL (65-110); Magnesium 2.8 mg/dL (1.6-2.3); Phosphorus 4.7 mg/dL (2.5-4.5); Potassium 4.2 mmol/L (3.4-5.0); Sodium 137 mmol/L (137-145)
[2024-01-25 06:30] LABS: Blood Urea Nitrogen 135 mg/dL (7-17)
[2024-01-25] MEDS: PANTOPRAZOLE SODIUM IV 40 MG VIAL IV PUSH ×2 (08:42→20:19)
[2024-01-25] MEDS: ATORVASTATIN 40 MG TABLET FEED TUBE (08:42)
[2024-01-25 08:50] LABS: Glucose Point of Care 129 mg/dl (65-105)
[2024-01-25] MEDS: MINERAL OIL/WHITE PETROLATUM OINTMENT 1 APPLIC EACH EYE ×2 (08:52→20:20)
[2024-01-25] MEDS: INSULIN GLARGINE (*BKC) 100 UNITS/ML 95 UNITS SUB-Q ×2 (08:54→20:24)
[2024-01-25] MEDS: MIDAZOLAM HCL (*CRX) 2 MG/2 ML VIAL 4 MG IV PUSH (09:12)
[2024-01-25] MEDS: amLODIPine BESYLATE 10 MG TABLET FEED TUBE (09:35)
--- NOTE | 2024-01-25 10:44 | P.PNINT_ITS ---
Progress Note: A&P Assessment and Plan (1) Septic shock: Code(s): A41.9 - Sepsis, unspecified organism; R65.21 - Severe sepsis with septic shock Status: Acute Assessment and Plan: RESOLVED Patient hypotensive on presentation Patient was given IV fluid bolus followed by maintenance IV fluids -lactic acid has improved -Levophed weaned off -off IV fluids -source appears to be UTI. Urine and blood cultures are negative till now, STATUS POST CEFTRIAXONE -status post stress dose steroids - 01/10 continues to have fever although other markers of infection are improved as normal WBC. 01/10: Repeat blood cultures are negative x2 Clark catheter change 01/11 Minimal respiratory secretions, sputum cultures growing yeast which is likely a colonization Change Rocephin to cefepime and vancomycin 01/14: Patient continues to have low-grade fever but overall fever curve is down. White count is normal. CT scan of chest and pelvis does not show any area suggestive of infection. Clark catheter was changed. Procalcitonin level is also on the lower side. Continue cefepime but will discontinue vancomycin at this time. Cultures are negative till now. -lipase was within normal limits -01/15/2024: lower extremity venous Dopplers: Left common femoral vein DVT -01/14: patient was started on heparin infusion OFF all abx 01/18: Remains febrile, patient has been carl cultured this morning, WBC trending up -chest x-ray is not show any new infiltrates -holding antibiotics for now, if patient continues to spike fevers and WBC count increase tomorrow will add antibiotics 01/18: Blood culture growing Gram-positive cocci in clusters 1/2 bottles 01/18: Urine cultures growing Tatiana albicans 01/18: Sputum cultures growing Yeast 01/19: Patient remained febrile with T-max of 101.3. Patient was started on vancomycin, meropenem and micafungin (01/19) which will be continued. Patient afebrile now. Continue antibiotics (2) Stroke: Code(s): I63.9 - Cerebral infarction, unspecified Status: Acute Assessment and Plan: Patient presented with altered mental status but at that time patient was respiratory failure acute renal failure acidosis and sepsis. CT scan on presentation showed only old stroke and encephalomalacia Since then patient has not woken up despite holding sedation for multiple days and dialysis. 01/[address] was done which showed. 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 These are likely secondary to hypotension Echo did not show any thrombus or ASD Continue aspirin and statin Neurology following EEG 01/12 - This is an abnormal EEG due to presence of moderate diffuse background slowing suggested generalized cephalopathy. No significant change in neurological status (3) Encephalopathy: Code(s): G93.40 - Encephalopathy, unspecified Status: Acute Assessment and Plan: Patient presented with encephalopathy, altered mental status, delirium, confusion -most likely related to uremia, infection, severe acidosis and baseline flow malacia from past stroke TSH and ammonia normal Patient has been off sedation since 01/09/2024. Still not responsive.. Will continue hold sedatives. EEG as above Patient was dialyzed 01/11 to help with drug removal. Minimal improved Encephalopathy likely secondary to strokes. See above. Neurology following -patient has been off sedation since 01/09/2024, has not woken up -01/16: Ammonia levels are normal 01/11: Repeat CT scan of the brain IMPRESSION: 1. 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 2. Large distribution of chronic encephalomalacia in the expected distribution of left middle cerebral artery. 01/06: CT brain on admission IMPRESSION: 1. No acute intracranial process. 2. 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 3. Additional more diffuse likely age-related mild to moderate diffuse volume loss and mild scattered white matter hypoattenuation consistent with chronic small vessel ischemic disease. (4) Acute respiratory failure: Code(s): J96.00 - Acute respiratory failure, unspecified whether with hypoxia or hypercapnia Status: Acute Assessment and Plan: Patient had an episode of emesis in the ER, given her altered mental status encephalopathy, risk of aspiration with impending respiratory failure patient was intubated on 01/06/2025 -chest x-ray and ABG reviewed -patient currently on ASV mode of ventilation, peep of 5, 21% FiO2 and tolerating. Will change to 75% minute ventilation -sedation is on hold since 01/09/2024 -weaning will depend on improvement in mental status. (5) Acute kidney failure: Code(s): N17.9 - Acute kidney failure, unspecified Status: Acute Assessment and Plan: On chronic kidney injury, unknown cause, CT of the abdomen and pelvis did not show any hydronephrosis or urinary obstruction -significant lactic acidosis and metabolic acidosis -patient has a history of diabetes, hypertension which is likely the cause of chronic kidney disease -patient on lisinopril hydrochlorothiazide and metformin at home -patient was given a total of 3 L IV fluid bolus, 1 L in the ER and 2 L in the ICU -sodium bicarb IV pushes x4 in the ICU -patient was started on sodium bicarb infusion after discussing with Nephrology, which her was discontinued once hemodialysis was started -patient was started on hemodialysis and was dialyzed x 3 days -patient continues to have decent urine output - 01/11 patient was dialyzed again 1 L fluid was removed -continue to monitor urine output, electrolytes and renal function -01/16: worsening creatinine, increased edema, decreased urine output. Discussed with Nephrology, patient will dialyzed - 01/22 patient would not be dialyzed due to issues with the catheter. Both ports were flushing and rowing but patient were having high pressure limiting flow. Will plan to change catheter today and re-attempt dialysis. 01/23 right IJ dialysis catheter was changed over a wire to a new catheter. At the time placement the catheter was were adequately but during dialysis there were cane issues hence dialysis would not be done - 01/24 I tested the right IJ dialysis catheter and it was drawing and flushing on all 3 ports but was inconsistent. This could be secondary to catheter abutting the wall. Patient always laying with head turned towards left unable to straighten her head without significant force. A new dialysis catheter was placed in right femoral vein after cleaning and disinfecting the area. Plan to dialyze again today (6) Metabolic acidosis: Code(s): E87.20 - Acidosis, unspecified Status: Acute Assessment and Plan: RESOLVED Patient presented with significant metabolic acidosis and lactic acidosis. This could be combination of septic shock, acute kidney injury but also a possibility of metformin toxicity Patient received hemodialysis and IV bicarb. Acidosis has resolved. Further dialysis per Nephrology (7) Diastolic dysfunction: Code(s): I51.89 - Other ill-defined heart diseases Status: Acute Assessment and Plan: Echo 01/11 Summary 1. Left ventricular systolic function is normal, estimated at 60-65%. 2. There is moderately increased left ventricular wall thickness. 3. Intact interatrial septum visualized by agitated saline imaging. 4. There is mild aortic valve calcification. 5. There is mild aortic valve stenosis with a peak velocity of 190 cm/s,mean gradient of 8 mmHg, and aortic valve area of 1.8 cm2. 6. There is mild tricuspid valve regurgitation. 7. Mild pulmonary hypertension, estimated pulmonary arterial systolicpressure is 46 mmHg. (8) Insulin dependent diabetes mellitus: Status: Chronic Assessment and Plan: Continue sliding scale insulin Accu-Cheks Continue Lantus at current dose (9) Right hemiparesis: Code(s): G81.91 - Hemiplegia, unspecified affecting right dominant side Status: Acute Assessment and Plan: History of left-sided cerebral hemisphere and CVA, residual mild aphasia and rig ht-sided weakness (10) Seizures: Code(s): R56.9 - Unspecified convulsions Status: Acute Assessment and Plan: Patient has a history of seizures, on p.o. Keppra 500 mg p.o. q.12 hours Continue Keppra IV 500 mg IV q.24 (discuss with pharmacist) EEG negative for any seizure-like activity (11) Hypertension: Code(s): I10 - Essential (primary) hypertension Status: Acute Assessment and Plan: Continue amlodipine and p.r.n. labetalol (12) Anemia: Code(s): D64.9 - Anemia, unspecified Status: Acute Assessment and Plan: 01/16: Patient has been on heparin infusion for DVT in the left common femoral vein. Dropped hemoglobin this morning to 6.7 from 7.8. heparin infusion Discontinued -stool for Hemoccult was Negative -01/17: IVC filter placement by surgery Transfuse if hemoglobin less than 7 01/24 hemoglobin 6.2 transfuse 1 unit PRBC Monitor Plan DVT prophylaxis: Hold heparin infusion due to anemia, continue SCDs Stress ulcer prophylaxis: Protonix IV q.12 hours Nutrition: Continue tube feeds Code Status: Patient is DNR at this time with family planning to palliatively extubate and proceed with comfort care only once her sister arrived from [place]. She has and dissipated to arrive either on Monday or Monday01/20/2024: Dr. Sinha discussed with sons Hakan and June, Danuta in the conference room this afternoon. I discussed with them at length regarding patient's medical condition and problems from the time she came to the hospital. They are aware that she has had multiple strokes, encephalopathy and not waking up since her sedation has been turned off on 01/09/2024. She is in renal failure requiring intermittent dialysis, has a DVT with IVC filters, anemia. The and the sons stated that they do not want the patient to get tracheostomy or the PEG tube. And they want to make her comfortable but requested if he could wait for 1 week since patient's sister was very close to her will be traveling from [place] to see her. They will keep us posted on her arrival. In the meantime patient remains DNR which was reiterated and acceptable to the and the sons. Bedside RN Anali and rn intensive care unit Ericka were present during the family meeting. Critical Care Time Spent: 32 minutes Due to a high probability of clinically significant, life threatening deterioration, the patient required my highest level of preparedness to intervene emergently and I personally spent this critical care time directly and personally managing the patient. This critical care time included obtaining a history; examining the patient; pulse oximetry; ordering and review of studies; arranging urgent treatment with development of a management plan; evaluation of patient's response to treatment; frequent reassessment; and discussions with other providers. It was exclusive of separately billable procedures and treating other patients and teaching time. Please see Assessment and Plan section and the rest of the note for further information on patient assessment and treatment This dictation may have been done utilizing a voice recognition system. Attempts have been made to correct errors. However, there may be uncorrected grammatical, spelling, and recognitions errors present. Subjective Date/time seen: 01/25/24 Overnight events reviewed. Afebrile Continues to be on mechanical ventilation. She Was switched to CMV mode overnight due to low respiratory rate No significant change in mental status Not on any sedation Other Vitals acceptable Tolerating tube feeds Yesterday dialysis could be done again because of issues with dialysis catheter Interval history: Reason for consult: Altered mental status, acute respiratory failure, severe metabolic acidosis, multiple strokes, DVT Review of Systems Review of Systems: ROS unobtainable: Yes unobtainable due to endotracheal tube, unobtainable due to medical condition and unobtainable due to mental status Exam Narrative: General: Intubated and sedated HEENT:? Pupils are equal and reactive to light, patient has positive corneal reflex, sclera is clear, ETT in place, facial puffiness noted Neck:? Supple, right IJ dialysis catheter in place Respiratory:? Coarse breath sounds bilaterally, decreased at bases no wheezing, adequate air entry Cardiac:? S1-S2 normal, regular rate and rhythm, Abdomen:? Soft, nontender, nondistended, hypoactive bowel sounds, old midline surgical scar noted Extremities:? Dry skin, decreased pedal pulses, pitting edema bilateral upper and lower extremities Neuro:? Patient is intubated, off sedation, PERRL, patient withdraws to pain stimulus in bilateral lower extremities, decerebrate posturing of the upper extremities on pain stimuli. Skin:? Dry and flaky skin on lower extremities, skin is warm Psych:? Unable to assess at this time Objective Data Vital Signs Vital Signs: Vital Signs - 24 hr 01/24/24 10:58 01/24/24 12:00 01/24/24 12:00 Temperature Pulse Rate 92 Respiratory Rate Blood Pressure Pulse Oximetry 100 100 Oxygen Delivery Mechanical Ventilation Mechanical Ventilation Oxygen Flow Rate Fraction of Inspired Oxygen 21 21 21 01/24/24 12:00 01/24/24 12:00 01/24/24 13:28 Temperature 37.2 C Pulse Rate 92 94 88 Respiratory Rate 10 L Blood Pressure 137/67 Pulse Oximetry 100 100 Oxygen Delivery Mechanical Ventilation Oxygen Flow Rate Fraction of Inspired Oxygen 21 01/24/24 14:00 01/24/24 14:00 01/24/24 16:00 Temperature 37.4 C Pulse Rate 88 90 Respiratory Rate 18 Blood Pressure 140/52 L Pulse Oximetry 100 100 Oxygen Delivery Mechanical Ventilation Oxygen Flow Rate Fraction of Inspired Oxygen 21 01/24/24 16:00 01/24/24 16:53 01/24/24 16:00 Temperature 37.6 C Pulse Rate 89 90 Respiratory Rate Blood Pressure 146/54 H Pulse Oximetry 100 100 Oxygen Delivery Mechanical Ventilation Oxygen Flow Rate Fraction of Inspired Oxygen 21 21 01/24/24 18:18 01/24/24 18:18 01/24/24 16:00 Temperature 37.4 C Pulse Rate 90 89 Respiratory Rate 16 Blood Pressure 143/58 H Pulse Oximetry Oxygen Delivery Oxygen Flow Rate Fraction of Inspired Oxygen 30 01/24/24 18:00 01/24/24 18:00 01/24/24 16:11 Temperature 37.4 C Pulse Rate 88 87 91 Respiratory Rate 16 Blood Pressure 148/60 H 149/64 H Pulse Oximetry 100 Oxygen Delivery Oxygen Flow Rate Fraction of Inspired Oxygen 01/24/24 17:12 01/24/24 16:15 01/24/24 16:30 Temperature 37.4 C Pulse Rate 93 90 92 Respiratory Rate 12 Blood Pressure 128/61 151/65 H 96/51 L Pulse Oximetry Oxygen Delivery Oxygen Flow Rate Fraction of Inspired Oxygen 01/24/24 16:36 01/24/24 16:45 01/24/24 17:02 Temperature Pulse Rate 94 92 90 Respiratory Rate Blood Pressure 119/59 L 148/56 H 129/58 L Pulse Oximetry Oxygen Delivery Oxygen Flow Rate Fraction of Inspired Oxygen 01/24/24 20:00 01/24/24 20:00 01/24/24 20:00 Temperature 37.3 C Pulse Rate 93 Respiratory Rate 19 Blood Pressure 132/59 L Pulse Oximetry 100 100 Oxygen Delivery Mechanical Ventilation Oxygen Flow Rate Fraction of Inspired Oxygen 21 21 01/24/24 22:00 01/24/24 21:45 01/24/24 20:18 Temperature 37.2 C Pulse Rate 96 90 Respiratory Rate 14 Blood Pressure 155/49 H Pulse Oximetry 100 100 Oxygen Delivery Mechanical Ventilation Oxygen Flow Rate Fraction of Inspired Oxygen 21 21 01/24/24 23:10 01/24/24 21:50 01/24/24 20:00 Temperature Pulse Rate 86 85 94 Respiratory Rate Blood Pressure Pulse Oximetry 100 100 Oxygen Delivery Mechanical Ventilation Mechanical Ventilation Oxygen Flow Rate Fraction of Inspired Oxygen 21 21 01/24/24 22:00 01/25/24 00:00 01/25/24 00:00 Temperature Pulse Rate 96 Respiratory Rate Blood Pressure Pulse Oximetry 100 Oxygen Delivery Mechanical Ventilation Oxygen Flow Rate 14 Fraction of Inspired Oxygen 21 21 01/25/24 00:00 01/25/24 00:00 01/25/24 02:26 Temperature 37.4 C Pulse Rate 88 88 91 Respiratory Rate 14 Blood Pressure 134/49 L Pulse Oximetry 100 100 Oxygen Delivery Mechanical Ventilation Oxygen Flow Rate Fraction of Inspired Oxygen 21 01/25/24 02:00 01/25/24 02:00 01/25/24 04:00 Temperature 37.4 C 37.4 C Pulse Rate 84 84 87 Respiratory Rate 14 14 Blood Pressure 129/55 L 139/55 L Pulse Oximetry 100 100 Oxygen Delivery Oxygen Flow Rate Fraction of Inspired Oxygen 01/25/24 05:10 01/25/24 04:00 01/25/24 06:00 Temperature 37.4 C Pulse Rate 83 87 Respiratory Rate 14 Blood Pressure 129/48 L Pulse Oximetry 100 100 Oxygen Delivery Mechanical Ventilation Oxygen Flow Rate Fraction of Inspired Oxygen 21 21 01/25/24 04:00 01/25/24 07:03 01/25/24 04:00 Temperature Pulse Rate 87 87 Respiratory Rate Blood Pressure Pulse Oximetry 100 100 Oxygen Delivery Mechanical Ventilation Mechanical Ventilation Oxygen Flow Rate 14 Fraction of Inspired Oxygen 21 21 01/25/24 06:00 01/25/24 09:52 01/25/24 10:08 Temperature 37.1 C 37.1 C Pulse Rate 87 93 94 Respiratory Rate 20 19 Blood Pressure 150/58 H 161/68 H Pulse Oximetry 98 Oxygen Delivery Oxygen Flow Rate Fraction of Inspired Oxygen 01/25/24 10:05 Temperature Pulse Rate 94 Respiratory Rate Blood Pressure Pulse Oximetry 99 Oxygen Delivery Mechanical Ventilation Oxygen Flow Rate Fraction of Inspired Oxygen 21 Intake/Output Intake/Output: Intake & Output 01/22/24 01/23/24 01/24/24 01/25/24 23:59 23:59 23:59 23:59 Intake Total 1856 1849 1825 655 Output Total 320 225 725 250 Balance 1536 1624 1100 405 Meds/Results Medications: Active Medications Generic Name Dose Route Start Last Admin Trade Name Freq PRN Reason Stop Dose Admin Acetaminophen 650 mg 01/10/24 08:02 01/20/24 16:00 Acetaminophen 325 Mg Tablet FEED TUBE 650 mg Q6H PRN Administration Mild Pain (1-3) or Fever Alteplase, Recombinant 2 mg 01/23/24 09:15 01/23/24 09:57 Alteplase 2 Mg Vial (Cathflo) IV PUSH 2 mg ONCE PRN Administration Line Occlusion Alteplase, Recombinant 2 mg 01/23/24 09:15 Alteplase 2 Mg Vial (Cathflo) IV PUSH ONCE PRN Line Occlusion Amlodipine Besylate 10 mg 01/22/24 08:50 01/25/24 09:35 Amlodipine Besylate 10 Mg Tablet FEED TUBE 10 mg DAILY CARMELA Administration Aspirin 325 mg 01/12/24 16:00 01/17/24 08:43 Aspirin 325 Mg Tablet FEED TUBE 325 mg DAILY@0800 [facility] Administration Atorvastatin Calcium 40 mg 01/13/24 09:00 01/25/24 08:42 Atorvastatin 40 Mg Tablet FEED TUBE 40 mg DAILY CARMELA Administration Dextrose 12.5 gm 01/07/24 13:18 Dextrose 50% 25 Gm/50 Ml Syringe IV PUSH PRN PRN Hypoglycemia Protocol Epoetin Dane-epbx 10,000 units 01/12/24 09:20 01/24/24 19:34 Epoetin Dane-Epbx 10,000 Units/Ml Vial SUB-Q Not Given MOWEFR@09 CARMELA Glucagon 1 mg 01/07/24 13:18 Glucagon For Inj 1 Mg Vial IM PRN PRN Hypoglycemia Protocol Glucose 15 gm 01/07/24 13:18 Glucose Oral Gel 15 Gm Of Glucse In 37.5 Gm Tube PO PRN PRN Hypoglycemia Protocol Hydralazine HCl 10 mg 01/18/24 02:20 01/18/24 05:40 Hydralazine 10 Mg Tablet PO Not Given Q6HR CARMELA Dextrose 1,000 mls @ 100 mls/hr 01/07/24 13:18 Dextrose 5% 1,000 Ml IVPB PRN PRN Hypoglycemia Protocol Albumin Human 50 mls @ 999 mls/hr 01/07/24 17:11 01/12/24 10:30 Albutein IVPB 02/06/24 17:10 Infused Q10M PRN Infusion HYPOTENSION Levetiracetam 500 mg in 100 mls @ 400 mls/hr 01/07/24 21:00 01/24/24 21:29 Keppra Iv IVPB Infused Q24H CARMELA Infusion Micafungin Sodium 100 mg/ 100 mls @ 100 mls/hr 01/20/24 16:00 01/24/24 19:35 Sodium Chloride IVPB Infused Q24H CARMELA Infusion Meropenem 500 mg in 100 mls @ 200 mls/hr 01/22/24 18:00 01/24/24 18:20 IVPB Infused Q24H CARMELA Infusion Sodium Chloride 250 mls @ 30 mls/hr 01/25/24 06:57 Normal Saline Iv IV CONT 01/25/24 15:16 .Q8H20M STA Insulin Aspart 4 - 8 units 01/10/24 07:55 01/25/24 08:47 Insulin Aspart (*Bkc) 100 Units/Ml SUB-Q Not Given Q4H [facility] Protocol Insulin Glargine 95 units 01/23/24 09:00 01/25/24 08:54 Insulin Glargine (*Bkc) 100 Units/Ml SUB-Q 95 units Q12H CARMELA Administration Labetalol HCl 10 mg 01/18/24 08:37 01/23/24 17:46 Labetalol Hcl Inj 100 Mg/20 Ml Vial IV PUSH 10 mg Q4H PRN Administration Hypertension Metoprolol Tartrate 100 mg 01/16/24 09:00 01/17/24 08:43 Metoprolol Tartrate 50 Mg Tab FEED TUBE 100 mg Q12HR CARMELA Administration Multi-Ingred Cream/Lotion/Oil/Oint 1 applic 01/07/24 21:00 01/25/24 08:52 Mineral Oil/White Petrolatum Ointment EACH EYE 1 applic Q12HR CARMELA Administration Pantoprazole Sodium 40 mg 01/07/24 21:00 01/25/24 08:42 Pantoprazole Sodium Iv 40 Mg Vial IV PUSH 40 mg Q12HR CARMELA Administration Vancomycin HCl 1 each 01/20/24 14:59 Vancomycin For Hemodialysis IVPB PRN PRN Vancomycin Protocol Radiology Results: ITS Impressions Abdomen/Pelvis CT 01/07/24 16:52 IMPRESSION: No acute abdominopelvic process. Specifically, there is no CT evidence of bowel obstruction. No definite evidence of renal injury, noting that low-grade renal injury as can be difficult to detect without contrast. Renal Ultrasound 01/08/24 10:47 IMPRESSION: 1. Normal kidney sizes. No hydronephrosis. Chest/Abdomen/Pelvis CT 01/12/24 15:08 IMPRESSION: Interval enlargement of the liver, when compared with previous examination. Flattening of the inferior vena cava suggesting severe hypovolemia. Interval development of basilar atelectasis and trace bilateral pleural effusi ons. No additional findings which represents a change from prior examination performed 01/07/2024. Supportive devices are in good position. Redemonstration of multiple stones within the gallbladder which is not distended. Head CT 01/12/24 15:31 IMPRESSION: 1. 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 2. Large distribution of chronic encephalomalacia in the expected distribution of left middle cerebral artery. Abdomen Ultrasound 01/13/24 09:31 IMPRESSION: 1. Cholelithiasis. 2. Normal liver Doppler. Arterial/Peripheral Duplex 01/13/24 09:31 IMPRESSION: 1. Cholelithiasis. 2. Normal liver Doppler. Venous Doppler Study 01/15/24 17:14 IMPRESSION: 1. Deep vein thrombosis involving left common femoral vein. ADDENDUM: 01/15/24 [id number] I called this result to Apurva Mclean. Abdomen X-Ray 01/16/24 06:03 Impression: NG tube in satisfactory position. IVC Filter Placement X-Ray 01/20/24 06:18 IMPRESSION: Fluoroscopy used during IVC filter insertion. Chest X-Ray 01/25/24 05:53 IMPRESSION: 1. Small lung volumes with mild atelectasis in the lower lung zones. Labs Labs: Laboratory Results - last 24 hr 01/24/24 01/24/24 01/24/24 12:06 17:00 21:13 WBC RBC Hgb Hct MCV MCH MCHC RDW Plt Count MPV Sodium Potassium Chloride Carbon Dioxide Anion Gap BUN Creatinine Estim Creat Clear Calc Estimated GFR Glucose POC Capillary Glucose 167 H 158 H 165 H Calcium Phosphorus Magnesium Total Bilirubin AST ALT Alkaline Phosphatase Total Protein Albumin Random Vancomycin Blood Type Antibody Screen Crossmatch 01/25/24 01/25/24 01/25/24 00:20 04:05 05:48 WBC 8.6 RBC 2.18 L Hgb 6.2 L* Hct 21.6 L MCV 99.1 MCH 28.4 MCHC 28.7 L RDW 18.6 H Plt Count 349 MPV 11.1 H Sodium 137 Potassium 4.2 Chloride 102 Carbon Dioxide 26 Anion Gap 9 BUN 135 H Creatinine 5.90 H Estim Creat Clear Calc 10 Estimated GFR 7 L Glucose 132 H POC Capillary Glucose 158 H 143 H Calcium 8.3 L Phosphorus 4.7 H Magnesium 2.8 H Total Bilirubin 0.5 AST 37 H ALT 21 Alkaline Phosphatase 88 Total Protein 6.0 L Albumin 2.7 L Random Vancomycin 23.0 H Blood Type Antibody Screen Crossmatch 01/25/24 01/25/24 07:47 08:46 WBC RBC Hgb Hct MCV MCH MCHC RDW Plt Count MPV Sodium Potassium Chloride Carbon Dioxide Anion Gap BUN Creatinine Estim Creat Clear Calc Estimated GFR Glucose POC Capillary Glucose 129 H Calcium Phosphorus Magnesium Total Bilirubin AST ALT Alkaline Phosphatase Total Protein Albumin Random Vancomycin Blood Type O Positive Antibody Screen Negative Crossmatch See Detail Quality VTE Prophylaxis VTE prophylaxis: mechanical ordered and pharmacologic ordered
--- NOTE | 2024-01-25 11:05 | PCFNICU ---
ICU Rounding Note: Pt current nutrition is Nepro at 50 ml/hr. Last recorded weight is 82 kg, up from 79.5 kg on admit. Bowel Motility: FMS Labs Reviewed: Glu 132, BUN 135, GFR 7, Cr 5.9, Hct 21.6, Hgb 6.2 Meds Noted:Keppra, Protonix, Lantus, NovoLog, Keppra, Lopressor. Skin: WNL Additional Notes: Patient remains on mechanical vent and tube feedings of Nepro at 50 ml/hr and tolerating per nursing. Dialysis was planned on 01/22 and 01/23 but unable to received due to catheter issues. Plans for Dialysis today. Agree with diet orders. Monitoring tube feeding tolerance, labs, weights, output, plan of care Follow up daily in rounds, reassess Monday and Monday.
--- NOTE | 2024-01-25 11:53 | WPDPROCEDUR ---
Procedures Central Line Placement Right Femoral: Central Line Date: 01/25/24 Central Line Time: 09:00 Discussed w/ the patient/family/POA,the placement of a central venous catheter, including its clinical necessity/indication & associated potential risks, benifits and alternatives.: Yes The patient/family/POA understand(s) and acknowledge(s) the need to proceed with central venous catheter insertion as an important element of the patient's clinical management.: Yes Consent: I have discussed with the patient and/or surrogate, the non-emergent placement of a temporary dialysis catheter, including its clinical necessity/indication and associated potential risks and complications. The patient and/or surrogate understand(s) and acknowledge(s) the need to proceed with temporary dialysis catheter insertion as an important element of the patient's clinical management. Time Out Performed: Yes Patient Position: supine Patient placed on monitor/pulse ox: Yes Provider Prep: mask, sterile gown, sterile gloves, Max. sterile barrier precautions, cap and hand hygiene with conventional soap/water or alcohol based hand rub Central line prep: Povidone-Iodine 1% Sterile US Technique with sterile gel/sterile probe covers: Yes Central line lumen inserted: triple [place]anese: 12 Length (cm): 20 Depth of Insertion (cm): 20 Post Procedure: sutured in place, good blood return, all ports aspirated, flushed, capped, transparent dressing and aseptic technique maintained throughout procedure Patient tolerated procedure: well Complications: none
[2024-01-25 12:22] LABS: Glucose Point of Care 82 mg/dl (65-105)
--- NOTE | 2024-01-25 13:42 | P.PNIM_ITS ---
Progress Note: A&P Assessment and Plan (1) Septic shock: Code(s): A41.9 - Sepsis, unspecified organism; R65.21 - Severe sepsis with septic shock Status: Acute Assessment and Plan: RESOLVED Patient hypotensive on presentation Patient was given IV fluid bolus followed by maintenance IV fluids -lactic acid has improved -Levophed weaned off -off IV fluids -source appears to be UTI. Urine and blood cultures are negative till now, STATUS POST CEFTRIAXONE -status post stress dose steroids - 01/10 continues to have fever although other markers of infection are improved as normal WBC. 01/10: Repeat blood cultures are negative x2 Clark catheter change 01/11 Minimal respiratory secretions, sputum cultures growing yeast which is likely a colonization Change Rocephin to cefepime and vancomycin 01/14: Patient continues to have low-grade fever but overall fever curve is down. White count is normal. CT scan of chest and pelvis does not show any area suggestive of infection. Clark catheter was changed. Procalcitonin level is also on the lower side. Continue cefepime but will discontinue vancomycin at this time. Cultures are negative till now. -lipase was within normal limits -01/15/2024: lower extremity venous Dopplers: Left common femoral vein DVT -01/14: patient was started on heparin infusion OFF all abx 01/18: Remains febrile, patient has been carl cultured this morning, WBC trending up -chest x-ray is not show any new infiltrates -holding antibiotics for now, if patient continues to spike fevers and WBC count increase tomorrow will add antibiotics 01/18: Blood culture growing Gram-positive cocci in clusters 1/2 bottles 01/18: Urine cultures growing Tatiana albicans 01/18: Sputum cultures growing Yeast 01/19: Patient remained febrile with T-max of 101.3. Patient was started on vancomycin, meropenem and micafungin (01/19) which will be continued. Patient afebrile now. Continue antibiotics (2) Stroke: Code(s): I63.9 - Cerebral infarction, unspecified Status: Acute Assessment and Plan: Patient presented with altered mental status but at that time patient was respiratory failure acute renal failure acidosis and sepsis. CT scan on presentation showed only old stroke and encephalomalacia Since then patient has not woken up despite holding sedation for multiple days and dialysis. 01/[address] was done which showed. 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 These are likely secondary to hypotension Echo did not show any thrombus or ASD Continue aspirin and statin Neurology following EEG 01/12 - This is an abnormal EEG due to presence of moderate diffuse background slowing suggested generalized cephalopathy. No significant change in neurological status (3) Encephalopathy: Code(s): G93.40 - Encephalopathy, unspecified Status: Acute Assessment and Plan: Patient presented with encephalopathy, altered mental status, delirium, confusion -most likely related to uremia, infection, severe acidosis and baseline flow malacia from past stroke TSH and ammonia normal Patient has been off sedation since 01/09/2024. Still not responsive.. Will continue hold sedatives. EEG as above Patient was dialyzed 01/11 to help with drug removal. Minimal improved Encephalopathy likely secondary to strokes. See above. Neurology following -patient has been off sedation since 01/09/2024, has not woken up -01/16: Ammonia levels are normal 01/11: Repeat CT scan of the brain IMPRESSION: 1. 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 2. Large distribution of chronic encephalomalacia in the expected distribution of left middle cerebral artery. 01/06: CT brain on admission IMPRESSION: 1. No acute intracranial process. 2. 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 3. Additional more diffuse likely age-related mild to moderate diffuse volume loss and mild scattered white matter hypoattenuation consistent with chronic small vessel ischemic disease. (4) Acute respiratory failure: Code(s): J96.00 - Acute respiratory failure, unspecified whether with hypoxia or hypercapnia Status: Acute Assessment and Plan: Patient had an episode of emesis in the ER, given her altered mental status encephalopathy, risk of aspiration with impending respiratory failure patient was intubated on 01/06/2025 -chest x-ray and ABG reviewed -patient currently on ASV mode of ventilation, peep of 5, 21% FiO2 and tolerating. Will change to 75% minute ventilation -sedation is on hold since 01/09/2024 -weaning will depend on improvement in mental status. (5) Acute kidney failure: Code(s): N17.9 - Acute kidney failure, unspecified Status: Acute Assessment and Plan: On chronic kidney injury, unknown cause, CT of the abdomen and pelvis did not show any hydronephrosis or urinary obstruction -significant lactic acidosis and metabolic acidosis -patient has a history of diabetes, hypertension which is likely the cause of chronic kidney disease -patient on lisinopril hydrochlorothiazide and metformin at home -patient was given a total of 3 L IV fluid bolus, 1 L in the ER and 2 L in the ICU -sodium bicarb IV pushes x4 in the ICU -patient was started on sodium bicarb infusion after discussing with Nephrology, which her was discontinued once hemodialysis was started -patient was started on hemodialysis and was dialyzed x 3 days -patient continues to have decent urine output - 01/11 patient was dialyzed again 1 L fluid was removed -continue to monitor urine output, electrolytes and renal function -01/16: worsening creatinine, increased edema, decreased urine output. Discussed with Nephrology, patient will dialyzed - 01/22 patient would not be dialyzed due to issues with the catheter. Both ports were flushing and rowing but patient were having high pressure limiting flow. Will plan to change catheter today and re-attempt dialysis. 01/23 right IJ dialysis catheter was changed over a wire to a new catheter. At the time placement the catheter was were adequately but during dialysis there were cane issues hence dialysis would not be done - 01/24 I tested the right IJ dialysis catheter and it was drawing and flushing on all 3 ports but was inconsistent. This could be secondary to catheter abutting the wall. Patient always laying with head turned towards left unable to straighten her head without significant force. A new dialysis catheter was placed in right femoral vein after cleaning and disinfecting the area. Plan to dialyze again today (6) Metabolic acidosis: Code(s): E87.20 - Acidosis, unspecified Status: Acute Assessment and Plan: RESOLVED Patient presented with significant metabolic acidosis and lactic acidosis. This could be combination of septic shock, acute kidney injury but also a possibility of metformin toxicity Patient received hemodialysis and IV bicarb. Acidosis has resolved. Further dialysis per Nephrology (7) Diastolic dysfunction: Code(s): I51.89 - Other ill-defined heart diseases Status: Acute Assessment and Plan: Echo 01/11 Summary 1. Left ventricular systolic function is normal, estimated at 60-65%. 2. There is moderately increased left ventricular wall thickness. 3. Intact interatrial septum visualized by agitated saline imaging. 4. There is mild aortic valve calcification. 5. There is mild aortic valve stenosis with a peak velocity of 190 cm/s,mean gradient of 8 mmHg, and aortic valve area of 1.8 cm2. 6. There is mild tricuspid valve regurgitation. 7. Mild pulmonary hypertension, estimated pulmonary arterial systolicpressure is 46 mmHg. (8) Insulin dependent diabetes mellitus: Status: Chronic Assessment and Plan: Continue sliding scale insulin Accu-Cheks Continue Lantus at current dose (9) Right hemiparesis: Code(s): G81.91 - Hemiplegia, unspecified affecting right dominant side Status: Acute Assessment and Plan: History of left-sided cerebral hemisphere and CVA, residual mild aphasia and rig ht-sided weakness (10) Seizures: Code(s): R56.9 - Unspecified convulsions Status: Acute Assessment and Plan: Patient has a history of seizures, on p.o. Keppra 500 mg p.o. q.12 hours Continue Keppra IV 500 mg IV q.24 (discuss with pharmacist) EEG negative for any seizure-like activity (11) Hypertension: Code(s): I10 - Essential (primary) hypertension Status: Acute Assessment and Plan: Continue amlodipine and p.r.n. labetalol (12) Anemia: Code(s): D64.9 - Anemia, unspecified Status: Acute Assessment and Plan: 01/16: Patient has been on heparin infusion for DVT in the left common femoral vein. Dropped hemoglobin this morning to 6.7 from 7.8. heparin infusion Discontinued -stool for Hemoccult was Negative -01/17: IVC filter placement by surgery Transfuse if hemoglobin less than 7 01/24 hemoglobin 6.2 transfuse 1 unit PRBC Monitor Subjective Date/time seen: 01/25/24 13:42 Interval history: No change in mentation. Continues to be on mechanical ventilation. Review of Systems Review of Systems: Unable to obtain due to mental status ROS unobtainable: Yes unobtainable due to endotracheal tube, unobtainable due to medical condition and unobtainable due to mental status Exam Narrative: General: Intubated and sedated HEENT:? Pupils are equal and reactive to light, patient has positive corneal reflex, sclera is clear, ETT in place, facial puffiness noted Neck:? Supple, right IJ dialysis catheter in place Respiratory:? Coarse breath sounds bilaterally, decreased at bases no wheezing, adequate air entry Cardiac:? S1-S2 normal, regular rate and rhythm, Abdomen:? Soft, nontender, nondistended, hypoactive bowel sounds, old midline surgical scar noted Extremities:? Dry skin, decreased pedal pulses, pitting edema bilateral upper and lower extremities Neuro:? Patient is intubated, off sedation, PERRL, patient withdraws to pain stimulus in bilateral lower extremities, decerebrate posturing of the upper extremities on pain stimuli. Skin:? Dry and flaky skin on lower extremities, skin is warm Psych:? Unable to assess at this time Objective Data Vital Signs Vital Signs: Vital Signs - 24 hr 01/24/24 14:00 01/24/24 14:00 01/24/24 16:00 Temperature 99.3 F Pulse Rate 88 90 Respiratory Rate 18 Blood Pressure 140/52 L Pulse Oximetry 100 100 Oxygen Delivery Mechanical Ventilation Oxygen Flow Rate Fraction of Inspired Oxygen 21 01/24/24 16:00 01/24/24 16:53 01/24/24 16:00 Temperature 99.6 F Pulse Rate 89 90 Respiratory Rate Blood Pressure 146/54 H Pulse Oximetry 100 100 Oxygen Delivery Mechanical Ventilation Oxygen Flow Rate Fraction of Inspired Oxygen 21 21 01/24/24 18:18 01/24/24 18:18 01/24/24 16:00 Temperature 99.3 F Pulse Rate 90 89 Respiratory Rate 16 Blood Pressure 143/58 H Pulse Oximetry Oxygen Delivery Oxygen Flow Rate Fraction of Inspired Oxygen 30 01/24/24 18:00 01/24/24 18:00 01/24/24 16:11 Temperature 99.3 F Pulse Rate 88 87 91 Respiratory Rate 16 Blood Pressure 148/60 H 149/64 H Pulse Oximetry 100 Oxygen Delivery Oxygen Flow Rate Fraction of Inspired Oxygen 01/24/24 17:12 01/24/24 16:15 01/24/24 16:30 Temperature 99.3 F Pulse Rate 93 90 92 Respiratory Rate 12 Blood Pressure 128/61 151/65 H 96/51 L Pulse Oximetry Oxygen Delivery Oxygen Flow Rate Fraction of Inspired Oxygen 01/24/24 16:36 01/24/24 16:45 01/24/24 17:02 Temperature Pulse Rate 94 92 90 Respiratory Rate Blood Pressure 119/59 L 148/56 H 129/58 L Pulse Oximetry Oxygen Delivery Oxygen Flow Rate Fraction of Inspired Oxygen 01/24/24 20:00 01/24/24 20:00 01/24/24 20:00 Temperature 99.1 F Pulse Rate 93 Respiratory Rate 19 Blood Pressure 132/59 L Pulse Oximetry 100 100 Oxygen Delivery Mechanical Ventilation Oxygen Flow Rate Fraction of Inspired Oxygen 21 21 01/24/24 22:00 01/24/24 21:45 01/24/24 20:18 Temperature 98.9 F Pulse Rate 96 90 Respiratory Rate 14 Blood Pressure 155/49 H Pulse Oximetry 100 100 Oxygen Delivery Mechanical Ventilation Oxygen Flow Rate Fraction of Inspired Oxygen 21 21 01/24/24 23:10 01/24/24 21:50 01/24/24 20:00 Temperature Pulse Rate 86 85 94 Respiratory Rate Blood Pressure Pulse Oximetry 100 100 Oxygen Delivery Mechanical Ventilation Mechanical Ventilation Oxygen Flow Rate Fraction of Inspired Oxygen 21 21 01/24/24 22:00 01/25/24 00:00 01/25/24 00:00 Temperature Pulse Rate 96 Respiratory Rate Blood Pressure Pulse Oximetry 100 Oxygen Delivery Mechanical Ventilation Oxygen Flow Rate 14 Fraction of Inspired Oxygen 21 21 01/25/24 00:00 01/25/24 00:00 01/25/24 02:26 Temperature 99.3 F Pulse Rate 88 88 91 Respiratory Rate 14 Blood Pressure 134/49 L Pulse Oximetry 100 100 Oxygen Delivery Mechanical Ventilation Oxygen Flow Rate Fraction of Inspired Oxygen 21 01/25/24 02:00 01/25/24 02:00 01/25/24 04:00 Temperature 99.3 F 99.4 F Pulse Rate 84 84 87 Respiratory Rate 14 14 Blood Pressure 129/55 L 139/55 L Pulse Oximetry 100 100 Oxygen Delivery Oxygen Flow Rate Fraction of Inspired Oxygen 01/25/24 05:10 01/25/24 04:00 01/25/24 06:00 Temperature 99.4 F Pulse Rate 83 87 Respiratory Rate 14 Blood Pressure 129/48 L Pulse Oximetry 100 100 Oxygen Delivery Mechanical Ventilation Oxygen Flow Rate Fraction of Inspired Oxygen 21 21 01/25/24 04:00 01/25/24 07:03 01/25/24 04:00 Temperature Pulse Rate 87 87 Respiratory Rate Blood Pressure Pulse Oximetry 100 100 Oxygen Delivery Mechanical Ventilation Mechanical Ventilation Oxygen Flow Rate 14 Fraction of Inspired Oxygen 21 21 01/25/24 06:00 01/25/24 09:52 01/25/24 10:08 Temperature 98.7 F 98.7 F Pulse Rate 87 93 94 Respiratory Rate 20 19 Blood Pressure 150/58 H 161/68 H Pulse Oximetry 98 Oxygen Delivery Oxygen Flow Rate Fraction of Inspired Oxygen 01/25/24 10:05 01/25/24 11:08 01/25/24 08:00 Temperature 98.3 F Pulse Rate 94 85 85 Respiratory Rate 19 Blood Pressure 145/65 H Pulse Oximetry 99 100 Oxygen Delivery Mechanical Ventilation Oxygen Flow Rate Fraction of Inspired Oxygen 21 01/25/24 08:00 01/25/24 08:00 01/25/24 08:00 Temperature 98.5 F Pulse Rate 88 Respiratory Rate 19 17 Blood Pressure 144/55 H Pulse Oximetry 100 100 Oxygen Delivery Mechanical Ventilation Oxygen Flow Rate 14 Fraction of Inspired Oxygen 21 21 01/25/24 10:00 01/25/24 10:00 01/25/24 12:00 Temperature 97.7 F Pulse Rate 94 94 Respiratory Rate 19 Blood Pressure 168/63 H Pulse Oximetry 99 Oxygen Delivery Mechanical Ventilation Oxygen Flow Rate Fraction of Inspired Oxygen 21 01/25/24 12:00 01/25/24 12:08 01/25/24 12:00 Temperature 98.2 F Pulse Rate 91 82 Respiratory Rate 18 Blood Pressure 135/54 L Pulse Oximetry 100 Oxygen Delivery Oxygen Flow Rate Fraction of Inspired Oxygen 21 01/25/24 13:03 01/25/24 13:08 Temperature 97.7 F Pulse Rate 83 83 Respiratory Rate 17 Blood Pressure 157/56 H Pulse Oximetry 99 98 Oxygen Delivery Mechanical Ventilation Oxygen Flow Rate Fraction of Inspired Oxygen 21 Intake/Output Intake/Output: Intake & Output 01/22/24 01/23/24 01/24/24 01/25/24 23:59 23:59 23:59 23:59 Intake Total 1856 1849 1825 1005 Output Total 320 225 725 250 Balance 1536 1624 1100 755 Meds/Results Medications: Active Medications Generic Name Dose Route Start Last Admin Trade Name Freq PRN Reason Stop Dose Admin Acetaminophen 650 mg 01/10/24 08:02 01/20/24 16:00 Acetaminophen 325 Mg Tablet FEED TUBE 650 mg Q6H PRN Administration Mild Pain (1-3) or Fever Alteplase, Recombinant 2 mg 01/23/24 09:15 01/23/24 09:57 Alteplase 2 Mg Vial (Cathflo) IV PUSH 2 mg ONCE PRN Administration Line Occlusion Alteplase, Recombinant 2 mg 01/23/24 09:15 Alteplase 2 Mg Vial (Cathflo) IV PUSH ONCE PRN Line Occlusion Amlodipine Besylate 10 mg 01/22/24 08:50 01/25/24 09:35 Amlodipine Besylate 10 Mg Tablet FEED TUBE 10 mg DAILY CARMELA Administration Aspirin 325 mg 01/12/24 16:00 01/17/24 08:43 Aspirin 325 Mg Tablet FEED TUBE 325 mg DAILY@0800 CARMELA Administration Atorvastatin Calcium 40 mg 01/13/24 09:00 01/25/24 08:42 Atorvastatin 40 Mg Tablet FEED TUBE 40 mg DAILY CARMELA Administration Dextrose 12.5 gm 01/07/24 13:18 Dextrose 50% 25 Gm/50 Ml Syringe IV PUSH PRN PRN Hypoglycemia Protocol Epoetin Dane-epbx 10,000 units 01/12/24 09:20 01/24/24 19:34 Epoetin Dane-Epbx 10,000 Units/Ml Vial SUB-Q Not Given MOWEFR@09 CARMELA Epoetin Dane-epbx 10,000 units 01/25/24 20:00 Epoetin Dane-Epbx 10,000 Units/Ml Vial IV PUSH 01/25/24 20:01 ONCE ONE Glucagon 1 mg 01/07/24 13:18 Glucagon For Inj 1 Mg Vial IM PRN PRN Hypoglycemia Protocol Glucose 15 gm 01/07/24 13:18 Glucose Oral Gel 15 Gm Of Glucse In 37.5 Gm Tube PO PRN PRN Hypoglycemia Protocol Hydralazine HCl 10 mg 01/18/24 02:20 01/18/24 05:40 Hydralazine 10 Mg Tablet PO Not Given Q6HR CARMELA Dextrose 1,000 mls @ 100 mls/hr 01/07/24 13:18 Dextrose 5% 1,000 Ml IVPB PRN PRN Hypoglycemia Protocol Albumin Human 50 mls @ 999 mls/hr 01/07/24 17:11 01/12/24 10:30 Albutein IVPB 03/07/24 17:10 Infused Q10M PRN Infusion HYPOTENSION Levetiracetam 500 mg in 100 mls @ 400 mls/hr 01/07/24 21:00 01/24/24 21:29 Keppra Iv IVPB Infused Q24H CARMELA Infusion Micafungin Sodium 100 mg/ 100 mls @ 100 mls/hr 01/20/24 16:00 01/24/24 19:35 Sodium Chloride IVPB Infused Q24H CARMELA Infusion Meropenem 500 mg in 100 mls @ 200 mls/hr 01/22/24 18:00 01/24/24 18:20 IVPB Infused Q24H CARMELA Infusion Sodium Chloride 250 mls @ 30 mls/hr 01/25/24 06:57 Normal Saline Iv IV CONT 01/25/24 15:16 .Q8H20M STA Vancomycin HCl 500 mg in 100 mls @ 100 mls/hr 01/25/24 18:00 Vancomycin 500 Mg/Ns 100 Ml IVPB 01/25/24 18:59 ONCE ONE Insulin Aspart 4 - 8 units 01/10/24 07:55 01/25/24 08:47 Insulin Aspart (*Bkc) 100 Units/Ml SUB-Q Not Given Q4H [facility] Protocol Insulin Glargine 95 units 01/23/24 09:00 01/25/24 08:54 Insulin Glargine (*Bkc) 100 Units/Ml SUB-Q 95 units Q12H CARMELA Administration Labetalol HCl 10 mg 01/18/24 08:37 01/23/24 17:46 Labetalol Hcl Inj 100 Mg/20 Ml Vial IV PUSH 10 mg Q4H PRN Administration Hypertension Metoprolol Tartrate 100 mg 01/16/24 09:00 01/17/24 08:43 Metoprolol Tartrate 50 Mg Tab FEED TUBE 100 mg Q12HR CARMELA Administration Multi-Ingred Cream/Lotion/Oil/Oint 1 applic 01/07/24 21:00 01/25/24 08:52 Mineral Oil/White Petrolatum Ointment EACH EYE 1 applic Q12HR CARMELA Administration Pantoprazole Sodium 40 mg 01/07/24 21:00 01/25/24 08:42 Pantoprazole Sodium Iv 40 Mg Vial IV PUSH 40 mg Q12HR CARMELA Administration Vancomycin HCl 1 each 01/20/24 14:59 Vancomycin For Hemodialysis IVPB PRN PRN Vancomycin Protocol Radiology Results: ITS Impressions Abdomen/Pelvis CT 01/07/24 16:52 IMPRESSION: No acute abdominopelvic process. Specifically, there is no CT evidence of bowel obstruction. No definite evidence of renal injury, noting that low-grade renal injury as can be difficult to detect without contrast. Renal Ultrasound 01/08/24 10:47 IMPRESSION: 1. Normal kidney sizes. No hydronephrosis. Chest/Abdomen/Pelvis CT 01/12/24 15:08 IMPRESSION: Interval enlargement of the liver, when compared with previous examination. Flattening of the inferior vena cava suggesting severe hypovolemia. Interval development of basilar atelectasis and trace bilateral pleural effusions. No additional findings which represents a change from prior examination performed 01/07/2024. Supportive devices are in good position. Redemonstration of multiple stones within the gallbladder which is not distended. Head CT 01/12/24 15:31 IMPRESSION: 1. 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 2. Large distribution of chronic encephalomalacia in the expected distribution of left middle cerebral artery. Abdomen Ultrasound 01/13/24 09:31 IMPRESSION: 1. Cholelithiasis. 2. Normal liver Doppler. Arterial/Peripheral Duplex 01/13/24 09:31 IMPRESSION: 1. Cholelithiasis. 2. Normal liver Doppler. Venous Doppler Study 01/15/24 17:14 IMPRESSION: 1. Deep vein thrombosis involving left common femoral vein. ADDENDUM: 01/15/24 1669 I called this result to Apurva Mclean. Abdomen X-Ray 01/16/24 06:03 Impression: NG tube in satisfactory position. IVC Filter Placement X-Ray 01/20/24 06:18 IMPRESSION: Fluoroscopy used during IVC filter insertion. Chest X-Ray 01/25/24 05:53 IMPRESSION: 1. Small lung volumes with mild atelectasis in the lower lung zones. Labs Labs: Laboratory Results - last 24 hr 01/24/24 01/24/24 01/25/24 17:00 21:13 00:20 WBC RBC Hgb Hct MCV MCH MCHC RDW Plt Count MPV Sodium Potassium Chloride Carbon Dioxide Anion Gap BUN Creatinine Estim Creat Clear Calc Estimated GFR Glucose POC Capillary Glucose 158 H 165 H 158 H Calcium Phosphorus Magnesium Total Bilirubin AST ALT Alkaline Phosphatase Total Protein Albumin Random Vancomycin Blood Type Antibody Screen Crossmatch 01/25/24 01/25/24 01/25/24 04:05 05:48 07:47 WBC 8.6 RBC 2.18 L Hgb 6.2 L* Hct 21.6 L MCV 99.1 MCH 28.4 MCHC 28.7 L RDW 18.6 H Plt Count 349 MPV 11.1 H Sodium 137 Potassium 4.2 Chloride 102 Carbon Dioxide 26 Anion Gap 9 BUN 135 H Creatinine 5.90 H Estim Creat Clear Calc 10 Estimated GFR 7 L Glucose 132 H POC Capillary Glucose 143 H Calcium 8.3 L Phosphorus 4.7 H Magnesium 2.8 H Total Bilirubin 0.5 AST 37 H ALT 21 Alkaline Phosphatase 88 Total Protein 6.0 L Albumin 2.7 L Random Vancomycin 23.0 H Blood Type O Positive Antibody Screen Negative Crossmatch See Detail 01/25/24 01/25/24 08:46 12:15 WBC RBC Hgb Hct MCV MCH MCHC RDW Plt Count MPV Sodium Potassium Chloride Carbon Dioxide Anion Gap BUN Creatinine Estim Creat Clear Calc Estimated GFR Glucose POC Capillary Glucose 129 H 82 Calcium Phosphorus Magnesium Total Bilirubin AST ALT Alkaline Phosphatase Total Protein Albumin Random Vancomycin Blood Type Antibody Screen Crossmatch Quality VTE Prophylaxis VTE prophylaxis: mechanical ordered and pharmacologic ordered Hospitalist MIPS Advance Care Plan I have confirmed that the patient's Advanced Care Plan is present, code status is documented, or surrogate decision maker is listed in patient medical record.: Yes Medication Reconciliation I have utilized all available resources to obtain, update and review the patients current medications (includes all prescriptions, OTC, herbals, cannabis, and nutritional supplements).: Yes
--- NOTE | 2024-01-25 15:48 | P.PNNP_ITS ---
Progress Note: A&P Assessment and Plan (1) Acute kidney failure: Code(s): N17.9 - Acute kidney failure, unspecified Status: Acute Assessment and Plan: * baseline creatinine not known * reportedly has some underlying renal insufficiency/CKD per family * still awaiting outside records * evaluation to date noted: * CT of abd/pelvis and renal ultrasound negative for obstruction * urine eosinophils negative * CPK normal * urine electrolytes non-prerenal * UA suggestive of infection * proteinuria noted complicated by severe acidosis and hyperkalemia on admission * etiology likely multifactorial: * infection/sepsis * hemodynamic instability/shock * SRINIVAS-I + HCTZ use prior to admission * possible prerenal factors * metformin use prior to admission * continued BP medications prior to admission * no improvement in mental status with dialytic interventions * stable electrolytes but declining urine output noted * HD today and likely again tomorrow (2) Septic shock: Code(s): A41.9 - Sepsis, unspecified organism; R65.21 - Severe sepsis with septic shock Status: Resolved Assessment and Plan: * resolved * initially normotensive on presentation * however, worsening hypotension in the ER * s/p aggressive IVF resuscitation * presumed source = aspiration pneumonia + UTI * blood and urine cultures negative -- still with on/off fevers * repeat cultures noted * on antibiotics * off pressors * follow hemodynamics (3) Acute respiratory failure: Code(s): J96.00 - Acute respiratory failure, unspecified whether with hypoxia or hypercapnia Status: Acute Assessment and Plan: * due to AMS + emesis and concerns for aspiration and inability to protect airway * intubated and on mechanical ventilation * continue ventilator support - off sedation * weaning as tolerated but mentation is still an issue (4) Encephalopathy: Code(s): G93.40 - Encephalopathy, unspecified Status: Acute Assessment and Plan: * as noted by presentation of altered mental status, delirium, and confusion * CT of brain shows several strokes * TSH and ammonia levels noted * HD did not help the mental status * still unresponsive (5) Stroke: Code(s): I63.9 - Cerebral infarction, unspecified Status: Acute Assessment and Plan: * as noted by repeat CT of head on 01/11: * Extensive bilateral acute infarcts in the expected distributions of the bilateral middle cerebral arteries. * presumably secondary to hypotension * Echo did not show any thrombus or ASD * remains unresponsive at this time (6) Anemia: Code(s): D64.9 - Anemia, unspecified Status: Acute Assessment and Plan: * noted drop in H/H by labs on 01/16 and 01/24 * was on heparin gtt for left LE DVT (but off now) * PRBC transfusion per protocol * ALICE with dialysis * follow trend of H/H (7) Deep vein thrombosis of left lower extremity: Code(s): I82.402 - Acute embolism and thrombosis of unspecified deep veins of left lower extremity Status: Acute Assessment and Plan: * as noted by LE dopplers * s/p IVC filter placement on 01/18/24 (8) Insulin dependent diabetes mellitus: Status: Chronic Assessment and Plan: * follow accu-checks * glycemic control per hospitalists/career guidance counselor Will continue to follow. Subjective Date/time seen: 01/25/24 15:48 Interval history: Follow-up for acute kidney injury/acute renal failure (on chronic kidney disease?). Tolerating dialysis treatment at the time of my visit (seen on HD at 3:38PM); multiple interventions done with regard to HD catheter placement/replacement over the last 24 hours in an effort to get the patient dialysis today; otherwise, no other issues/events to report; remains unresponsive and intubated with ongoing ventilator support; stable hemodynamics noted; noted rise in BUN/creatinine without dialytic support. Exam Narrative: General: somewhat ill appearing female intubated and on mechanical ventilation Heart: normal S1 and S2; no rub Lungs: coarse breath sounds bilaterally Abdomen: soft, nontender, nondistended, positive bowel sounds Extremities: no cyanosis or clubbing; no edema Skin: warm and dry Objective Data Vital Signs Vital Signs: Vital Signs Temp Pulse Resp BP Pulse Ox O2 Del Method O2 Flow Rate 01/25/24 15:42 14 Mechanical Ventilation 01/25/24 14:00 98.0 F 86 14 167/57 H 98 01/25/24 14:00 88 01/25/24 13:08 97.7 F 83 17 157/56 H 98 01/25/24 13:03 83 99 Mechanical Ventilation 01/25/24 12:00 82 01/25/24 12:08 98.2 F 91 18 135/54 L 100 01/25/24 12:00 01/25/24 12:00 Mechanical Ventilation 01/25/24 10:00 97.7 F 94 19 168/63 H 99 01/25/24 10:00 94 01/25/24 08:00 98.5 F 88 17 144/55 H 100 01/25/24 08:00 01/25/24 08:00 19 100 Mechanical Ventilation 14 01/25/24 08:00 85 01/25/24 11:08 98.3 F 85 19 145/65 H 100 01/25/24 10:05 94 99 Mechanical Ventilation 01/25/24 10:08 98.7 F 94 19 161/68 H 01/25/24 09:52 98.7 F 93 20 150/58 H 98 01/25/24 06:00 87 01/25/24 04:00 87 01/25/24 07:03 87 100 Mechanical Ventilation 01/25/24 04:00 100 Mechanical Ventilation 14 01/25/24 06:00 99.4 F 87 14 129/48 L 100 01/25/24 04:00 01/25/24 05:10 83 100 Mechanical Ventilation 01/25/24 04:00 99.4 F 87 14 139/55 L 100 01/25/24 02:00 99.3 F 84 14 129/55 L 100 01/25/24 02:00 84 01/25/24 02:26 91 100 Mechanical Ventilation 01/25/24 00:00 99.3 F 88 14 134/49 L 100 01/25/24 00:00 88 01/25/24 00:00 100 Mechanical Ventilation 14 01/25/24 00:00 01/24/24 22:00 96 01/24/24 20:00 94 01/24/24 21:50 85 100 Mechanical Ventilation 01/24/24 23:10 86 100 Mechanical Ventilation 01/24/24 20:18 90 100 Mechanical Ventilation 01/24/24 21:45 01/24/24 22:00 98.9 F 96 14 155/49 H 100 01/24/24 20:00 99.1 F 93 19 132/59 L 100 01/24/24 20:00 100 Mechanical Ventilation 01/24/24 20:00 01/24/24 17:02 90 129/58 L 01/24/24 16:45 92 148/56 H 01/24/24 16:36 94 119/59 L 01/24/24 16:30 92 96/51 L 01/24/24 16:15 90 151/65 H 01/24/24 17:12 99.3 F 93 12 128/61 01/24/24 16:11 91 149/64 H 01/24/24 18:00 99.3 F 87 16 148/60 H 100 01/24/24 18:00 88 01/24/24 16:00 89 01/24/24 18:18 99.3 F 90 16 143/58 H 01/24/24 18:18 01/24/24 16:00 99.6 F 90 146/54 H 100 01/24/24 16:53 89 100 Mechanical Ventilation 01/24/24 16:00 01/24/24 16:00 100 Mechanical Ventilation Intake/Output Intake/Output: Intake & Output 01/22/24 01/23/24 01/24/24 01/25/24 23:59 23:59 23:59 23:59 Intake Total 1856 1849 1825 1005 Output Total 320 225 725 250 Balance 1536 1624 1100 755 Meds/Results Medications: Active Medications Generic Name Dose Route Start Last Admin Trade Name Freq PRN Reason Stop Dose Admin Acetaminophen 650 mg 01/10/24 08:02 01/20/24 16:00 Acetaminophen 325 Mg Tablet FEED TUBE 650 mg Q6H PRN Administration Mild Pain (1-3) or Fever Alteplase, Recombinant 2 mg 01/23/24 09:15 01/23/24 09:57 Alteplase 2 Mg Vial (Cathflo) IV PUSH 2 mg ONCE PRN Administration Line Occlusion Alteplase, Recombinant 2 mg 01/23/24 09:15 Alteplase 2 Mg Vial (Cathflo) IV PUSH ONCE PRN Line Occlusion Amlodipine Besylate 10 mg 01/22/24 08:50 01/25/24 09:35 Amlodipine Besylate 10 Mg Tablet FEED TUBE 10 mg DAILY CARMELA Administration Aspirin 325 mg 01/12/24 16:00 01/17/24 08:43 Aspirin 325 Mg Tablet FEED TUBE 325 mg DAILY@0800 CARMELA Administration Atorvastatin Calcium 40 mg 01/13/24 09:00 01/25/24 08:42 Atorvastatin 40 Mg Tablet FEED TUBE 40 mg DAILY CARMELA Administration Dextrose 12.5 gm 01/07/24 13:18 Dextrose 50% 25 Gm/50 Ml Syringe IV PUSH PRN PRN Hypoglycemia Protocol Epoetin Dane-epbx 10,000 units 01/12/24 09:20 01/24/24 19:34 Epoetin Dane-Epbx 10,000 Units/Ml Vial SUB-Q Not Given MOWEFR@09 [facility] Epoetin Dane-epbx 10,000 units 01/25/24 20:00 Epoetin Dane-Epbx 10,000 Units/Ml Vial IV PUSH 01/25/24 20:01 ONCE ONE Glucagon 1 mg 01/07/24 13:18 Glucagon For Inj 1 Mg Vial IM PRN PRN Hypoglycemia Protocol Glucose 15 gm 01/07/24 13:18 Glucose Oral Gel 15 Gm Of Glucse In 37.5 Gm Tube PO PRN PRN Hypoglycemia Protocol Hydralazine HCl 10 mg 01/18/24 02:20 01/18/24 05:40 Hydralazine 10 Mg Tablet PO Not Given Q6HR [facility] Dextrose 1,000 mls @ 100 mls/hr 01/07/24 13:18 Dextrose 5% 1,000 Ml IVPB PRN PRN Hypoglycemia Protocol Albumin Human 50 mls @ 999 mls/hr 01/07/24 17:11 01/12/24 10:30 Albutein IVPB 03/07/24 17:10 Infused Q10M PRN Infusion HYPOTENSION Levetiracetam 500 mg in 100 mls @ 400 mls/hr 01/07/24 21:00 01/24/24 21:29 Keppra Iv IVPB Infused Q24H CARMELA Infusion Micafungin Sodium 100 mg/ 100 mls @ 100 mls/hr 01/20/24 16:00 01/24/24 19:35 Sodium Chloride IVPB Infused Q24H CARMELA Infusion Meropenem 500 mg in 100 mls @ 200 mls/hr 01/22/24 18:00 01/24/24 18:20 IVPB Infused Q24H CARMELA Infusion Vancomycin HCl 500 mg in 100 mls @ 100 mls/hr 01/25/24 18:00 Vancomycin 500 Mg/Ns 100 Ml IVPB 01/25/24 18:59 ONCE ONE Insulin Aspart 4 - 8 units 01/10/24 07:55 01/25/24 08:47 Insulin Aspart (*Bkc) 100 Units/Ml SUB-Q Not Given Q4H [facility] Protocol Insulin Glargine 95 units 01/23/24 09:00 01/25/24 08:54 Insulin Glargine (*Bkc) 100 Units/Ml SUB-Q 95 units Q12H CARMELA Administration Labetalol HCl 10 mg 01/18/24 08:37 01/23/24 17:46 Labetalol Hcl Inj 100 Mg/20 Ml Vial IV PUSH 10 mg Q4H PRN Administration Hypertension Metoprolol Tartrate 100 mg 01/16/24 09:00 01/17/24 08:43 Metoprolol Tartrate 50 Mg Tab FEED TUBE 100 mg Q12HR CARMELA Administration Multi-Ingred Cream/Lotion/Oil/Oint 1 applic 01/07/24 21:00 01/25/24 08:52 Mineral Oil/White Petrolatum Ointment EACH EYE 1 applic Q12HR CARMELA Administration Pantoprazole Sodium 40 mg 01/07/24 21:00 01/25/24 08:42 Pantoprazole Sodium Iv 40 Mg Vial IV PUSH 40 mg Q12HR CARMELA Administration Vancomycin HCl 1 each 01/20/24 14:59 Vancomycin For Hemodialysis IVPB PRN PRN Vancomycin Protocol Radiology Results: ITS Impressions Abdomen/Pelvis CT 01/07/24 16:52 IMPRESSION: No acute abdominopelvic process. Specifically, there is no CT evidence of bowel obstruction. No definite evidence of renal injury, noting that low-grade renal injury as can be difficult to detect without contrast. Renal Ultrasound 01/08/24 10:47 IMPRESSION: 1. Normal kidney sizes. No hydronephrosis. Chest/Abdomen/Pelvis CT 01/12/24 15:08 IMPRESSION: Interval enlargement of the liver, when compared with previous examination. Flattening of the inferior vena cava suggesting severe hypovolemia. Interval development of basilar atelectasis and trace bilateral pleural effusion s. No additional findings which represents a change from prior examination performed 01/07/2024. Supportive devices are in good position. Redemonstration of multiple stones within the gallbladder which is not distended. Head CT 01/12/24 15:31 IMPRESSION: 1. 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 2. Large distribution of chronic encephalomalacia in the expected distribution of left middle cerebral artery. Abdomen Ultrasound 01/13/24 09:31 IMPRESSION: 1. Cholelithiasis. 2. Normal liver Doppler. Arterial/Peripheral Duplex 01/13/24 09:31 IMPRESSION: 1. Cholelithiasis. 2. Normal liver Doppler. Venous Doppler Study 01/15/24 17:14 IMPRESSION: 1. Deep vein thrombosis involving left common femoral vein. ADDENDUM: 01/15/24 0410 I called this result to Apurva Mclean. Abdomen X-Ray 01/16/24 06:03 Impression: NG tube in satisfactory position. IVC Filter Placement X-Ray 01/20/24 06:18 IMPRESSION: Fluoroscopy used during IVC filter insertion. Chest X-Ray 01/25/24 05:53 IMPRESSION: 1. Small lung volumes with mild atelectasis in the lower lung zones. Labs Labs: Laboratory Tests 01/25/24 05:48 01/25/24 05:48 Calcium 8.3 L Phosphorus 4.7 H Magnesium 2.8 H Total Bilirubin 0.5 AST 37 H ALT 21 Alkaline Phosphatase 88 Total Protein 6.0 L Albumin 2.7 L Random Vancomycin 23.0 H Microbiology 01/19/24 08:11 Blood Blood Culture - Final Staphylococcus epidermidis 01/19/24 08:41 Blood Blood Culture - Final
[2024-01-25 16:20] LABS: Glucose Point of Care 95 mg/dl (65-105)
[2024-01-25] MEDS: EPOETIN ALFA-EPBX 10,000 UNITS/ML VIAL 10000 UNITS IV PUSH (18:23)
[2024-01-25] MEDS: MEROPENEM 500 MG/NS 100 ML 500 MG/100 ML BAG 200 MG IVPB (19:52)
[2024-01-25] MEDS: VANCOMYCIN 500 MG/NS 100 ML 500 MG/100 ML BAG 100 MG IVPB (19:54)
[2024-01-25] MEDS: MICAFUNGIN SODIUM 100 MG in SODIUM CHLORIDE 0.9% IV 100 ML IVPB (20:27)
[2024-01-25 20:39] LABS: Glucose Point of Care 127 mg/dl (65-105)
[2024-01-25] MEDS: levETIRAcetam 500MG/NACL 100ML 500 MG/100 ML BAG 400 MG IVPB (20:59)
[2024-01-25] MEDS: LABETALOL HCL INJ 100 MG/20 ML VIAL 10 MG IV PUSH (23:12)
[2024-01-25 23:34] LABS: Glucose Point of Care 124 mg/dl (65-105)
[2024-01-26] VITALS (33 sets, daily range): BP systolic 91–161; BP diastolic 56–80; PULSE 79–95; RESP 14–19; TEMP 37–38; O2SAT 100
[2024-01-26 05:12] LABS: Glucose Point of Care 86 mg/dl (65-105)
[2024-01-26 06:30] LABS: Hematocrit 26.1 % (37.0-47.0); Hemoglobin 7.7 g/dL (12.0-15.0); Mean Corpuscular HGB Conc 29.5 g/dl (32-36); Mean Corpuscular Hemoglobin 28.3 pg (26-34); Mean Platelet Volume 11.1 fl (7.4-10.4); Platelet Count Result 359 k/mm3 (150-375); Red Blood Count 2.72 M/mm3 (4.2-5.4); Red Cell Distribution Width 19.1 % (11.5-14.5)
[2024-01-26 06:53] LABS: Alanine Aminotransferase 22 U/L (6-35); Albumin Level 2.8 g/dL (3.5-5.1); Alkaline Phosphatase 98 U/L (38-126); Anion Gap 5 mmol/L (4-12); Aspartate Amino Transferase 44 U/L (14-36); Bilirubin,Total 0.6 mg/dL (0.2-1.3); Blood Urea Nitrogen 58 mg/dL (7-17); Calcium 8.2 mg/dL (8.4-10.2); Carbon Dioxide 29 mmol/L (22-30); Chloride 102 mmol/L (98-107); Estimated CRCL calculation 21 ml/min; Estimated Glomerular Filt Rate 17; Glucose 75 mg/dL (65-110); Magnesium 2.3 mg/dL (1.6-2.3); Phosphorus 3.4 mg/dL (2.5-4.5); Potassium 3.7 mmol/L (3.4-5.0); Sodium 136 mmol/L (137-145)
[2024-01-26 07:11] LABS: Vancomycin Random 19.3 ug/mL (10-20)
[2024-01-26 08:02] LABS: Glucose Point of Care 59 mg/dl (65-105)
[2024-01-26] MEDS: DEXTROSE 50% 25 GM/50 ML SYRINGE IV PUSH (08:02)
[2024-01-26] MEDS: ATORVASTATIN 40 MG TABLET FEED TUBE (08:04)
[2024-01-26] MEDS: amLODIPine BESYLATE 10 MG TABLET FEED TUBE (08:04)
[2024-01-26] MEDS: PANTOPRAZOLE SODIUM IV 40 MG VIAL IV PUSH ×2 (08:04→20:09)
[2024-01-26] MEDS: MINERAL OIL/WHITE PETROLATUM OINTMENT 1 APPLIC EACH EYE ×2 (08:05→20:10)
[2024-01-26] MEDS: EPOETIN ALFA-EPBX 10,000 UNITS/ML VIAL 10000 UNITS SUB-Q (08:16)
[2024-01-26 08:20] LABS: Glucose Point of Care 118 mg/dl (65-105)
--- NOTE | 2024-01-26 08:48 | PM.EVENT ---
Event Note Event Note Event Note: Late entry for 01/24 Patient had malfunctioning of catheter and right IJ. I placed a new catheter and right femoral vein. After insertion catheter was working fine with all ports were flushing and growing. During dialysis they tech had difficulty with 1 port of the catheter. It seems that the red port was not drawing of flushing smoothly. I changed the catheter over guidewire and again the same port was having issues. Without suctioning the blood was coming out but upon applying suction with a syringe the draw was stopping intermittently. I suspected that catheter site port was abutting venous wall. I again changed the catheter over a guidewire to a 16 cm shorter catheter and sutured at 15 cm insertion which allowed catheter to work smoothly for now. Additional critical care time spent apart from previously documented time and procedures: 60 minutes
--- NOTE | 2024-01-26 08:51 | WPDINTPN ---
Progress Note: A&P Assessment and Plan (1) Septic shock: Code(s): A41.9 - Sepsis, unspecified organism; R65.21 - Severe sepsis with septic shock Status: Acute Assessment and Plan: RESOLVED Patient hypotensive on presentation Patient was given IV fluid bolus followed by maintenance IV fluids -lactic acid has improved -Levophed weaned off -off IV fluids -source appears to be UTI. Urine and blood cultures are negative till now, STATUS POST CEFTRIAXONE -status post stress dose steroids - 01/10 continues to have fever although other markers of infection are improved as normal WBC. 01/10: Repeat blood cultures are negative x2 Clark catheter change 01/11 Minimal respiratory secretions, sputum cultures growing yeast which is likely a colonization Change Rocephin to cefepime and vancomycin 01/14: Patient continues to have low-grade fever but overall fever curve is down. White count is normal. CT scan of chest and pelvis does not show any area suggestive of infection. Clark catheter was changed. Procalcitonin level is also on the lower side. Continue cefepime but will discontinue vancomycin at this time. Cultures are negative till now. -lipase was within normal limits -01/15/2024: lower extremity venous Dopplers: Left common femoral vein DVT -01/14: patient was started on heparin infusion OFF all abx 01/18: Remains febrile, patient has been carl cultured this morning, WBC trending up -chest x-ray is not show any new infiltrates -holding antibiotics for now, if patient continues to spike fevers and WBC count increase tomorrow will add antibiotics 01/18: Blood culture growing Gram-positive cocci in clusters 1/2 bottles 01/18: Urine cultures growing Tatiana albicans 01/18: Sputum cultures growing Yeast 01/19: Patient remained febrile with T-max of 101.3. Patient was started on vancomycin, meropenem and micafungin (01/19) which will be continued. Patient afebrile now. Continue antibiotics (2) Stroke: Code(s): I63.9 - Cerebral infarction, unspecified Status: Acute Assessment and Plan: Patient presented with altered mental status but at that time patient was respiratory failure acute renal failure acidosis and sepsis. CT scan on presentation showed only old stroke and encephalomalacia Since then patient has not woken up despite holding sedation for multiple days and dialysis. 01/[address] was done which showed. 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 These are likely secondary to hypotension Echo did not show any thrombus or ASD Continue aspirin and statin Neurology following EEG 01/12 - This is an abnormal EEG due to presence of moderate diffuse background slowing suggested generalized cephalopathy. No significant change in neurological status (3) Encephalopathy: Code(s): G93.40 - Encephalopathy, unspecified Status: Acute Assessment and Plan: Patient presented with encephalopathy, altered mental status, delirium, confusion -most likely related to uremia, infection, severe acidosis and baseline flow malacia from past stroke TSH and ammonia normal Patient has been off sedation since 01/09/2024. Still not responsive.. Will continue hold sedatives. EEG as above Patient was dialyzed 01/11 to help with drug removal. Minimal improved Encephalopathy likely secondary to strokes. See above. Neurology evaluated the patient Patient has been off sedation since 01/09/2024, has not woken up Ammonia levels are normal 01/11: Repeat CT scan of the brain IMPRESSION: 1. 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 2. Large distribution of chronic encephalomalacia in the expected distribution of left middle cerebral artery. 01/06: CT brain on admission IMPRESSION: 1. No acute intracranial process. 2. 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 3. Additional more diffuse likely age-related mild to moderate diffuse volume loss and mild scattered white matter hypoattenuation consistent with chronic small vessel ischemic disease. (4) Acute respiratory failure: Code(s): J96.00 - Acute respiratory failure, unspecified whether with hypoxia or hypercapnia Status: Acute Assessment and Plan: Patient had an episode of emesis in the ER, given her altered mental status encephalopathy, risk of aspiration with impending respiratory failure patient was intubated on 01/06/2025 -chest x-ray and ABG reviewed -patient was on ASV mode of ventilation but now switch back to CMV due to respiratory rate -sedation is on hold since 01/09/2024 -weaning will depend on improvement in mental status. -family does not desire tracheostomy (5) Acute kidney failure: Code(s): N17.9 - Acute kidney failure, unspecified Status: Acute Assessment and Plan: On chronic kidney injury, unknown cause, CT of the abdomen and pelvis did not show any hydronephrosis or urinary obstruction -significant lactic acidosis and metabolic acidosis -patient has a history of diabetes, hypertension which is likely the cause of chronic kidney disease -patient on lisinopril hydrochlorothiazide and metformin at home -patient was given a total of 3 L IV fluid bolus, 1 L in the ER and 2 L in the ICU -sodium bicarb IV pushes x4 in the ICU -patient was started on sodium bicarb infusion after discussing with Nephrology, which her was discontinued once hemodialysis was started -patient was started on hemodialysis and was dialyzed x 3 days -patient continues to have decent urine output - 01/11 patient was dialyzed again 1 L fluid was removed -continue to monitor urine output, electrolytes and renal function -01/16: worsening creatinine, increased edema, decreased urine output. Discussed with Nephrology, patient will dialyzed - 01/22 patient would not be dialyzed due to issues with the catheter. Both ports were flushing and rowing but patient were having high pressure limiting flow. Will plan to change catheter today and re-attempt dialysis. 01/23 right IJ dialysis catheter was changed over a wire to a new catheter. At the time placement the catheter was were adequately but during dialysis there were cane issues hence dialysis would not be done - 01/24 I tested the right IJ dialysis catheter and it was drawing and flushing on all 3 ports but was inconsistent. This could be secondary to catheter abutting the wall. Patient always laying with head turned towards left unable to straighten her head without significant force. A new dialysis catheter was placed in right femoral vein after cleaning and disinfecting the area. Catheter had to change again over a guidewire due to issues with flow from 1 port. Patient was eventually dialyzed 01/25 plan to dialyze again today (6) Diastolic dysfunction: Code(s): I51.89 - Other ill-defined heart diseases Status: Acute Assessment and Plan: Echo 01/11 Summary 1. Left ventricular systolic function is normal, estimated at 60-65%. 2. There is moderately increased left ventricular wall thickness. 3. Intact interatrial septum visualized by agitated saline imaging. 4. There is mild aortic valve calcification. 5. There is mild aortic valve stenosis with a peak velocity of 190 cm/s,mean gradient of 8 mmHg, and aortic valve area of 1.8 cm2. 6. There is mild tricuspid valve regurgitation. 7. Mild pulmonary hypertension, estimated pulmonary arterial systolicpressure is 46 mmHg. (7) Insulin dependent diabetes mellitus: Status: Chronic Assessment and Plan: Continue sliding scale insulin Accu-Cheks Blood sugar low this morning. Will hold Lantus this morning. (8) Right hemiparesis: Code(s): G81.91 - Hemiplegia, unspecified affecting right dominant side Status: Acute Assessment and Plan: History of left-sided cerebral hemisphere and CVA, residual mild aphasia and right-sided weakness (9) Seizures: Code(s): R56.9 - Unspecified convulsions Status: Acute Assessment and Plan: Patient has a history of seizures, on p.o. Keppra 500 mg p.o. q.12 hours Continue Keppra IV 500 mg IV q.24 (discuss with pharmacist) EEG negative for any seizure-like activity (10) Hypertension: Code(s): I10 - Essential (primary) hypertension Status: Acute Assessment and Plan: Continue amlodipine and p.r.n. labetalol (11) Anemia: Code(s): D64.9 - Anemia, unspecified Status: Acute Assessment and Plan: 01/16: Patient has been on heparin infusion for DVT in the left common femoral vein. Dropped hemoglobin this morning to 6.7 from 7.8. heparin infusion Discontinued -stool for Hemoccult was Negative -01/17: IVC filter placement by surgery Transfuse if hemoglobin less than 7 01/24 hemoglobin 6.2 transfuse 1 unit PRBC Monitor Plan DVT prophylaxis: Hold heparin infusion due to anemia, continue SCDs Stress ulcer prophylaxis: Protonix IV q.12 hours Nutrition: Continue tube feeds Code Status: Patient is DNR at this time with family planning to palliatively extubate and proceed with comfort care only once her sister arrived from [place]. She is anticipated to arrive either on Monday or Monday01/20/2024: Dr. Sinha discussed with sons Hakan and June, Danuta in the conference room this afternoon. I discussed with them at length regarding patient's medical condition and problems from the time she came to the hospital. They are aware that she has had multiple strokes, encephalopathy and not waking up since her sedation has been turned off on 01/09/2024. She is in renal failure requiring intermittent dialysis, has a DVT with IVC filters, anemia. The and the sons stated that they do not want the patient to get tracheostomy or the PEG tube. And they want to make her comfortable but requested if he could wait for 1 week since patient's sister was very close to her will be traveling from [place] to see her. They will keep us posted on her arrival. In the meantime patient remains DNR which was reiterated and acceptable to the and the sons. Bedside RN Anali and care associate Ericka were present during the family meeting. Critical Care Time Spent: 30 minutes Due to a high probability of clinically significant, life threatening deterioration, the patient required my highest level of preparedness to intervene emergently and I personally spent this critical care time directly and personally managing the patient. This critical care time included obtaining a history; examining the patient; pulse oximetry; ordering and review of studies; arranging urgent treatment with development of a management plan; evaluation of patient's response to treatment; frequent reassessment; and discussions with other providers. It was exclusive of separately billable procedures and treating other patients and teaching time. Please see Assessment and Plan section and the rest of the note for further information on patient assessment and treatment This dictation may have been done utilizing a voice recognition system. Attempts have been made to correct errors. However, there may be uncorrected grammatical, spelling, and recognitions errors present. Subjective Date/time seen: 01/26/24 Overnight events reviewed. Afebrile Continues to be on mechanical ventilation. Continues to be on CMV mode No significant change in mental status Not on any sedation Other Vitals acceptable Tolerating tube feeds Patient was dialyzed yesterday Interval history: Reason for consult: Altered mental status, acute respiratory failure, severe metabolic acidosis, multiple strokes, DVT Review of Systems Review of Systems: ROS unobtainable: Yes unobtainable due to endotracheal tube, unobtainable due to medical condition and unobtainable due to mental status Exam Narrative: General: Intubated and sedated HEENT:? Pupils are equal and reactive to light, patient has positive corneal reflex, sclera is clear, ETT in place, facial puffiness noted Neck:? Supple, Respiratory:? Coarse breath sounds bilaterally, decreased at bases no wheezing, adequate air entry Cardiac:? S1-S2 normal, regular rate and rhythm, Abdomen:? Soft, nontender, nondistended, hypoactive bowel sounds, old midline surgical scar noted Extremities:? Dry skin, decreased pedal pulses, right femoral dialysis catheter Neuro:? Patient is intubated, off sedation, PERRL, patient withdraws to pain stimulus in right lower extremities but only intermittently, decerebrate posturing of the upper extremities on pain stimuli. Spontaneous respiratory effort present no other response Skin:? Dry and flaky skin on lower extremities, skin is warm Psych:? Unable to assess at this time Objective Data Vital Signs Vital Signs: Vital Signs - 24 hr 01/25/24 09:52 01/25/24 10:08 01/25/24 10:05 Temperature 37.1 C 37.1 C Pulse Rate 93 94 94 Respiratory Rate 20 19 Blood Pressure 150/58 H 161/68 H Pulse Oximetry 98 99 Oxygen Delivery Mechanical Ventilation Fraction of Inspired Oxygen 21 01/25/24 11:08 01/25/24 10:00 01/25/24 10:00 Temperature 36.8 C 36.5 C Pulse Rate 85 94 94 Respiratory Rate 19 19 Blood Pressure 145/65 H 168/63 H Pulse Oximetry 100 99 Oxygen Delivery Fraction of Inspired Oxygen 01/25/24 12:00 01/25/24 12:00 01/25/24 12:08 Temperature 36.8 C Pulse Rate 91 Respiratory Rate 18 Blood Pressure 135/54 L Pulse Oximetry 100 Oxygen Delivery Mechanical Ventilation Fraction of Inspired Oxygen 21 01/25/24 12:00 01/25/24 13:03 01/25/24 13:08 Temperature 36.5 C Pulse Rate 82 83 83 Respiratory Rate 17 Blood Pressure 157/56 H Pulse Oximetry 99 98 Oxygen Delivery Mechanical Ventilation Fraction of Inspired Oxygen 21 01/25/24 14:00 01/25/24 14:00 01/25/24 15:42 Temperature 36.7 C Pulse Rate 88 86 Respiratory Rate 14 14 Blood Pressure 167/57 H Pulse Oximetry 98 Oxygen Delivery Mechanical Ventilation Fraction of Inspired Oxygen 21 01/25/24 15:45 01/25/24 16:00 01/25/24 14:00 Temperature 37.2 C Pulse Rate 89 Respiratory Rate 19 Blood Pressure 117/60 Pulse Oximetry 100 Oxygen Delivery Fraction of Inspired Oxygen 21 21 01/25/24 14:00 01/25/24 15:17 01/25/24 15:30 Temperature 36.8 C Pulse Rate 85 87 86 Respiratory Rate 18 Blood Pressure 167/57 H 170/57 H 162/66 H Pulse Oximetry Oxygen Delivery Fraction of Inspired Oxygen 01/25/24 15:45 01/25/24 16:00 01/25/24 16:25 Temperature Pulse Rate 88 89 87 Respiratory Rate Blood Pressure 146/58 H 117/60 Pulse Oximetry 100 Oxygen Delivery Mechanical Ventilation Fraction of Inspired Oxygen 21 01/25/24 16:00 01/25/24 16:15 01/25/24 17:15 Temperature Pulse Rate 92 98 90 Respiratory Rate Blood Pressure 150/71 H 124/63 Pulse Oximetry Oxygen Delivery Fraction of Inspired Oxygen 01/25/24 17:30 01/25/24 16:30 01/25/24 16:45 Temperature Pulse Rate 90 88 88 Respiratory Rate Blood Pressure 133/64 105/54 L 104/60 Pulse Oximetry Oxygen Delivery Fraction of Inspired Oxygen 01/25/24 17:00 01/25/24 18:00 01/25/24 18:00 Temperature 37.7 C H Pulse Rate 94 91 91 Respiratory Rate 21 H Blood Pressure 122/62 112/60 Pulse Oximetry 100 Oxygen Delivery Fraction of Inspired Oxygen 01/25/24 17:45 01/25/24 18:00 01/25/24 18:15 Temperature Pulse Rate 97 92 91 Respiratory Rate Blood Pressure 157/78 H 104/57 L 112/60 Pulse Oximetry Oxygen Delivery Fraction of Inspired Oxygen 01/25/24 18:30 01/25/24 18:45 01/25/24 20:00 Temperature 37.4 C Pulse Rate 96 94 88 Respiratory Rate 20 Blood Pressure 117/62 103/67 130/58 L Pulse Oximetry 100 Oxygen Delivery Fraction of Inspired Oxygen 01/25/24 20:00 01/25/24 19:00 01/25/24 19:24 Temperature 37.8 C H Pulse Rate 91 90 Respiratory Rate 20 Blood Pressure 112/57 L 114/66 Pulse Oximetry Oxygen Delivery Fraction of Inspired Oxygen 21 01/25/24 19:15 01/25/24 19:18 01/25/24 20:00 Temperature Pulse Rate 97 92 88 Respiratory Rate Blood Pressure 103/68 128/64 Pulse Oximetry Oxygen Delivery Fraction of Inspired Oxygen 01/25/24 20:00 01/25/24 22:00 01/25/24 20:08 Temperature 37.1 C Pulse Rate 88 92 Respiratory Rate 14 Blood Pressure 170/72 H Pulse Oximetry 100 100 100 Oxygen Delivery Mechanical Ventilation Mechanical Ventilation Fraction of Inspired Oxygen 21 21 01/25/24 23:12 01/25/24 22:00 01/25/24 23:51 Temperature Pulse Rate 87 88 Respiratory Rate Blood Pressure 147/59 H Pulse Oximetry Oxygen Delivery Fraction of Inspired Oxygen 01/26/24 00:00 01/26/24 00:00 01/26/24 00:00 Temperature 37.3 C Pulse Rate 79 79 Respiratory Rate 14 Blood Pressure 139/65 Pulse Oximetry 100 Oxygen Delivery Fraction of Inspired Oxygen 21 01/26/24 00:00 01/25/24 23:12 01/25/24 23:05 Temperature Pulse Rate 78 Respiratory Rate Blood Pressure 166/80 H Pulse Oximetry 100 100 Oxygen Delivery Mechanical Ventilation Mechanical Ventilation Fraction of Inspired Oxygen 21 21 01/26/24 02:00 01/26/24 02:00 01/26/24 02:48 Temperature 37.3 C Pulse Rate 80 80 80 Respiratory Rate 14 Blood Pressure 129/64 Pulse Oximetry 100 100 Oxygen Delivery Mechanical Ventilation Fraction of Inspired Oxygen 21 01/26/24 04:00 01/26/24 04:00 01/26/24 04:00 Temperature 37.1 C Pulse Rate 84 Respiratory Rate 14 Blood Pressure 150/65 H Pulse Oximetry 100 100 Oxygen Delivery Mechanical Ventilation Fraction of Inspired Oxygen 21 21 01/26/24 05:05 01/26/24 04:00 01/26/24 06:00 Temperature Pulse Rate 84 84 82 Respiratory Rate Blood Pressure Pulse Oximetry 100 Oxygen Delivery Mechanical Ventilation Fraction of Inspired Oxygen 21 01/26/24 06:00 01/26/24 07:29 Temperature 37.0 C Pulse Rate 83 88 Respiratory Rate 14 Blood Pressure 146/71 H Pulse Oximetry 100 100 Oxygen Delivery Mechanical Ventilation Fraction of Inspired Oxygen 21 Intake/Output Intake/Output: Intake & Output 01/23/24 01/24/24 01/25/24 01/26/24 23:59 23:59 23:59 23:59 Intake Total 1849 1825 2041 721 Output Total 543 823 4056 255 Balance 1624 1100 261 466 Meds/Results Medications: Active Medications Generic Name Dose Route Start Last Admin Trade Name Freq PRN Reason Stop Dose Admin Acetaminophen 650 mg 01/10/24 08:02 01/20/24 16:00 Acetaminophen 325 Mg Tablet FEED TUBE 650 mg Q6H PRN Administration Mild Pain (1-3) or Fever Alteplase, Recombinant 2 mg 01/23/24 09:15 01/23/24 09:57 Alteplase 2 Mg Vial (Cathflo) IV PUSH 2 mg ONCE PRN Administration Line Occlusion Alteplase, Recombinant 2 mg 01/23/24 09:15 Alteplase 2 Mg Vial (Cathflo) IV PUSH ONCE PRN Line Occlusion Amlodipine Besylate 10 mg 01/22/24 08:50 01/26/24 08:04 Amlodipine Besylate 10 Mg Tablet FEED TUBE 10 mg DAILY CARMELA Administration Aspirin 325 mg 01/12/24 16:00 01/17/24 08:43 Aspirin 325 Mg Tablet FEED TUBE 325 mg DAILY@0800 CARMELA Administration Atorvastatin Calcium 40 mg 01/13/24 09:00 01/26/24 08:04 Atorvastatin 40 Mg Tablet FEED TUBE 40 mg DAILY CARMELA Administration Dextrose 12.5 gm 01/07/24 13:18 01/26/24 08:02 Dextrose 50% 25 Gm/50 Ml Syringe IV PUSH 12.5 gm PRN PRN Administration Hypoglycemia Protocol Epoetin Dane-epbx 10,000 units 01/12/24 09:20 01/26/24 08:16 Epoetin Dane-Epbx 10,000 Units/Ml Vial SUB-Q 10,000 units MOWEFR@09 CARMELA Administration Glucagon 1 mg 01/07/24 13:18 Glucagon For Inj 1 Mg Vial IM PRN PRN Hypoglycemia Protocol Glucose 15 gm 01/07/24 13:18 Glucose Oral Gel 15 Gm Of Glucse In 37.5 Gm Tube PO PRN PRN Hypoglycemia Protocol Hydralazine HCl 10 mg 01/18/24 02:20 01/18/24 05:40 Hydralazine 10 Mg Tablet PO Not Given Q6HR CARMELA Dextrose 1,000 mls @ 100 mls/hr 01/07/24 13:18 Dextrose 5% 1,000 Ml IVPB PRN PRN Hypoglycemia Protocol Albumin Human 50 mls @ 999 mls/hr 01/07/24 17:11 01/12/24 10:30 Albutein IVPB 03/07/24 17:10 Infused Q10M PRN Infusion HYPOTENSION Levetiracetam 500 mg in 100 mls @ 400 mls/hr 01/07/24 21:00 01/25/24 21:14 Keppra Iv IVPB Infused Q24H CARMELA Infusion Micafungin Sodium 100 mg/ 100 mls @ 100 mls/hr 01/20/24 16:00 01/25/24 21:27 Sodium Chloride IVPB Infused Q24H CARMELA Infusion Meropenem 500 mg in 100 mls @ 200 mls/hr 01/22/24 18:00 01/25/24 20:22 IVPB Infused Q24H CARMELA Infusion Insulin Aspart 4 - 8 units 01/10/24 07:55 01/26/24 08:06 Insulin Aspart (*Bkc) 100 Units/Ml SUB-Q Not Given Q4H [facility] Protocol Insulin Glargine 80 units 01/26/24 09:00 Insulin Glargine (*Bkc) 100 Units/Ml SUB-Q Q12H [facility] Labetalol HCl 10 mg 01/18/24 08:37 01/25/24 23:12 Labetalol Hcl Inj 100 Mg/20 Ml Vial IV PUSH 10 mg Q4H PRN Administration Hypertension Metoprolol Tartrate 100 mg 01/16/24 09:00 01/17/24 08:43 Metoprolol Tartrate 50 Mg Tab FEED TUBE 100 mg Q12HR CARMELA Administration Multi-Ingred Cream/Lotion/Oil/Oint 1 applic 01/07/24 21:00 01/26/24 08:05 Mineral Oil/White Petrolatum Ointment EACH EYE 1 applic Q12HR CARMELA Administration Pantoprazole Sodium 40 mg 01/07/24 21:00 01/26/24 08:04 Pantoprazole Sodium Iv 40 Mg Vial IV PUSH 40 mg Q12HR CARMELA Administration Vancomycin HCl 1 each 01/20/24 14:59 Vancomycin For Hemodialysis IVPB PRN PRN Vancomycin Protocol Radiology Results: ITS Impressions Abdomen/Pelvis CT 01/07/24 16:52 IMPRESSION: No acute abdominopelvic process. Specifically, there is no CT evidence of bowel obstruction. No definite evidence of renal injury, noting that low-grade renal injury as can be difficult to detect without contrast. Renal Ultrasound 01/08/24 10:47 IMPRESSION: 1. Normal kidney sizes. No hydronephrosis. Chest/Abdomen/Pelvis CT 01/12/24 15:08 IMPRESSION: Interval enlargement of the liver, when compared with previous examination. Flattening of the inferior vena cava suggesting severe hypovolemia. Interval development of basilar atelectasis and trace bilateral pleural effusions. No additional findings which represents a change from prior examination performed 01/07/2024. Supportive devices are in good position. Redemonstration of multiple stones within the gallbladder which is not distended. Head CT 01/12/24 15:31 IMPRESSION: 1. 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 2. Large distribution of chronic encephalomalacia in the expected distribution of left middle cerebral artery. Abdomen Ultrasound 01/13/24 09:31 IMPRESSION: 1. Cholelithiasis. 2. Normal liver Doppler. Arterial/Peripheral Duplex 01/13/24 09:31 IMPRESSION: 1. Cholelithiasis. 2. Normal liver Doppler. Venous Doppler Study 01/15/24 17:14 IMPRESSION: 1. Deep vein thrombosis involving left common femoral vein. ADDENDUM: 01/15/24 [id number] I called this result to Apurva Mclean. Abdomen X-Ray 01/16/24 06:03 Impression: NG tube in satisfactory position. IVC Filter Placement X-Ray 01/20/24 06:18 IMPRESSION: Fluoroscopy used during IVC filter insertion. Chest X-Ray 01/26/24 06:15 IMPRESSION: 1. Stable mild atelectasis at left lung base. Labs Labs: Laboratory Results - last 24 hr 01/25/24 01/25/24 01/25/24 07:47 12:15 16:13 WBC RBC Hgb Hct MCV MCH MCHC RDW Plt Count MPV Sodium Potassium Chloride Carbon Dioxide Anion Gap BUN Creatinine Estim Creat Clear Calc Estimated GFR Glucose POC Capillary Glucose 82 95 Calcium Phosphorus Magnesium Total Bilirubin AST ALT Alkaline Phosphatase Total Protein Albumin Random Vancomycin Blood Type O Positive Antibody Screen Negative Crossmatch See Detail 01/25/24 01/25/24 01/26/24 19:49 23:29 04:04 WBC RBC Hgb Hct MCV MCH MCHC RDW Plt Count MPV Sodium Potassium Chloride Carbon Dioxide Anion Gap BUN Creatinine Estim Creat Clear Calc Estimated GFR Glucose POC Capillary Glucose 127 H 124 H 86 Calcium Phosphorus Magnesium Total Bilirubin AST ALT Alkaline Phosphatase Total Protein Albumin Random Vancomycin Blood Type Antibody Screen Crossmatch 01/26/24 01/26/24 01/26/24 06:20 07:58 08:18 WBC 10.0 RBC 2.72 L Hgb 7.7 L Hct 26.1 L MCV 96.0 MCH 28.3 MCHC 29.5 L RDW 19.1 H Plt Count 359 MPV 11.1 H Sodium 136 L Potassium 3.7 Chloride 102 Carbon Dioxide 29 Anion Gap 5 BUN 58 H D Creatinine 2.80 H Estim Creat Clear Calc 21 Estimated GFR 17 L Glucose 75 POC Capillary Glucose 59 L* 118 H Calcium 8.2 L Phosphorus 3.4 Magnesium 2.3 Total Bilirubin 0.6 AST 44 H ALT 22 Alkaline Phosphatase 98 Total Protein 6.0 L Albumin 2.8 L Random Vancomycin 19.3 Blood Type Antibody Screen Crossmatch Quality VTE Prophylaxis VTE prophylaxis: mechanical ordered and pharmacologic ordered
--- NOTE | 2024-01-26 10:04 | P.PNNP_ITS ---
Progress Note: A&P Assessment and Plan (1) Acute kidney failure: Code(s): N17.9 - Acute kidney failure, unspecified Status: Acute Assessment and Plan: * baseline creatinine not known * reportedly has some underlying renal insufficiency/CKD per family * still awaiting outside records * evaluation to date noted: * CT of abd/pelvis and renal ultrasound negative for obstruction * urine eosinophils negative * CPK normal * urine electrolytes non-prerenal * UA suggestive of infection * proteinuria noted complicated by severe acidosis and hyperkalemia on admission * etiology likely multifactorial: * infection/sepsis * hemodynamic instability/shock * SRINIVAS-I + HCTZ use prior to admission * possible prerenal factors * metformin use prior to admission * continued BP medications prior to admission * no improvement in mental status with dialytic interventions * stable electrolytes but declining urine output noted * HD today (2) Septic shock: Code(s): A41.9 - Sepsis, unspecified organism; R65.21 - Severe sepsis with septic shock Status: Resolved Assessment and Plan: * resolved * initially normotensive on presentation * however, worsening hypotension in the ER * s/p aggressive IVF resuscitation * presumed source = aspiration pneumonia + UTI * blood and urine cultures negative -- still with on/off fevers * repeat cultures noted * on antibiotics * off pressors * follow hemodynamics (3) Acute respiratory failure: Code(s): J96.00 - Acute respiratory failure, unspecified whether with hypoxia or hypercapnia Status: Acute Assessment and Plan: * due to AMS + emesis and concerns for aspiration and inability to protect airway * intubated and on mechanical ventilation * continue ventilator support - off sedation * weaning as tolerated but mentation is still an issue (4) Encephalopathy: Code(s): G93.40 - Encephalopathy, unspecified Status: Acute Assessment and Plan: * as noted by presentation of altered mental status, delirium, and confusion * CT of brain shows several strokes * TSH and ammonia levels noted * HD did not help the mental status * still unresponsive (5) Stroke: Code(s): I63.9 - Cerebral infarction, unspecified Status: Acute Assessment and Plan: * as noted by repeat CT of head on 01/11: * Extensive bilateral acute infarcts in the expected distributions of the bilateral middle cerebral arteries. * presumably secondary to hypotension * Echo did not show any thrombus or ASD * remains unresponsive at this time (6) Anemia: Code(s): D64.9 - Anemia, unspecified Status: Acute Assessment and Plan: * noted drop in H/H by labs on 01/16 and 01/24 * was on heparin gtt for left LE DVT (but off now) * PRBC transfusion per protocol * ALICE with dialysis * follow trend of H/H (7) Deep vein thrombosis of left lower extremity: Code(s): I82.402 - Acute embolism and thrombosis of unspecified deep veins of left lower extremity Status: Acute Assessment and Plan: * as noted by LE dopplers * s/p IVC filter placement on 01/18/24 (8) Insulin dependent diabetes mellitus: Status: Chronic Assessment and Plan: * follow accu-checks * 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 Subjective Date/time seen: 01/26/24 10:04 Interval history: Follow-up for acute kidney injury/acute renal failure (on chronic kidney disease?) Tolerated dialysis treatment yesterday following new HD catheter placement and tolerating dialysis treatment at the time of my visit (seen on HD at 9:55AM); issues with dialysis catheter since 01/22 -- no improvement noted despite use of cathflo, guidewire exchange of RIJ HD catheter, and then s/p placement of right femoral HD catheter and subsequent guidewire exchange of right femoral HD catheter yesterday; blood flows with current catheter are already fluctuating; otherwise, no other significant change noted -- remains unresponsive but hemodynamically stable; remains intubated and on mechanical ventilation. Exam Narrative: General: somewhat ill appearing female intubated and on mechanical vent ilation Heart: normal S1 and S2; no rub Lungs: coarse breath sounds bilaterally Abdomen: soft, nontender, nondistended, positive bowel sounds Extremities: no cyanosis or clubbing; trace edema Skin: warm and intact Objective Data Vital Signs Vital Signs: Vital Signs Temp Pulse Resp BP Pulse Ox O2 Del Method FiO2 01/26/24 10:00 94 99/56 L 01/26/24 09:45 105/56 L 21 01/26/24 09:30 87 133/58 L 01/26/24 09:17 86 148/63 H 01/26/24 09:00 99 F 84 17 150/61 H 100 01/26/24 08:00 98.8 F 85 15 161/69 H 100 Mechanical Ventilation 21 01/26/24 08:00 93 01/26/24 07:29 88 100 Mechanical Ventilation 01/26/24 06:00 98.6 F 83 14 146/71 H 100 01/26/24 06:00 82 01/26/24 04:00 84 01/26/24 05:05 84 100 Mechanical Ventilation 01/26/24 04:00 100 Mechanical Ventilation 21 01/26/24 04:00 21 01/26/24 04:00 98.8 F 84 14 150/65 H 100 01/26/24 02:48 80 100 Mechanical Ventilation 01/26/24 02:00 99.2 F 80 14 129/64 100 01/26/24 02:00 80 01/25/24 23:05 78 100 Mechanical Ventilation 01/25/24 23:12 166/80 H 01/26/24 00:00 100 Mechanical Ventilation 01/26/24 00:00 99.1 F 79 14 139/65 100 01/26/24 00:00 21 01/26/24 00:00 79 01/25/24 23:51 147/59 H 01/25/24 22:00 88 01/25/24 23:12 87 01/25/24 20:08 92 100 Mechanical Ventilation 01/25/24 22:00 98.7 F 88 14 170/72 H 100 01/25/24 20:00 100 Mechanical Ventilation 01/25/24 20:00 88 01/25/24 19:18 92 128/64 01/25/24 19:15 97 103/68 01/25/24 19:24 100.0 F H 90 20 114/66 01/25/24 19:00 91 112/57 L 01/25/24 20:00 21 01/25/24 20:00 99.4 F 88 20 130/58 L 100 01/25/24 18:45 94 103/67 01/25/24 18:30 96 117/62 01/25/24 18:15 91 112/60 01/25/24 18:00 92 104/57 L 01/25/24 17:45 97 157/78 H 01/25/24 18:00 99.8 F H 91 21 H 112/60 100 01/25/24 18:00 91 01/25/24 17:00 94 122/62 01/25/24 16:45 88 104/60 01/25/24 16:30 88 105/54 L 01/25/24 17:30 90 133/64 01/25/24 17:15 90 124/63 01/25/24 16:15 98 150/71 H 01/25/24 16:00 92 01/25/24 16:25 87 100 Mechanical Ventilation 21 01/25/24 16:00 89 117/60 01/25/24 15:45 88 146/58 H 01/25/24 15:30 86 162/66 H 01/25/24 15:17 87 170/57 H 01/25/24 14:00 98.2 F 85 18 167/57 H 01/25/24 14:00 21 01/25/24 16:00 98.9 F 89 19 117/60 100 01/25/24 15:45 21 01/25/24 15:42 14 Mechanical Ventilation 21 01/25/24 14:00 98.0 F 86 14 167/57 H 98 01/25/24 14:00 88 01/25/24 13:08 97.7 F 83 17 157/56 H 98 01/25/24 13:03 83 99 Mechanical Ventilation 21 01/25/24 12:00 82 01/25/24 12:08 98.2 F 91 18 135/54 L 100 01/25/24 12:00 21 01/25/24 12:00 Mechanical Ventilation 21 Intake/Output Intake/Output: Intake & Output 01/23/24 01/24/24 01/25/24 01/26/24 23:59 23:59 23:59 23:59 Intake Total 1849 1825 2041 721 Output Total 113 142 1263 255 Balance 1624 1100 261 466 Meds/Results Medications: Active Medications Generic Name Dose Route Start Last Admin Trade Name Freq PRN Reason Stop Dose Admin Acetaminophen 650 mg 01/10/24 08:02 01/20/24 16:00 Acetaminophen 325 Mg Tablet FEED TUBE 650 mg Q6H PRN Administration Mild Pain (1-3) or Fever Alteplase, Recombinant 2 mg 01/23/24 09:15 01/23/24 09:57 Alteplase 2 Mg Vial (Cathflo) IV PUSH 2 mg ONCE PRN Administration Line Occlusion Alteplase, Recombinant 2 mg 01/23/24 09:15 Alteplase 2 Mg Vial (Cathflo) IV PUSH ONCE PRN Line Occlusion Amlodipine Besylate 10 mg 01/22/24 08:50 01/26/24 08:04 Amlodipine Besylate 10 Mg Tablet FEED TUBE 10 mg DAILY CARMELA Administration Aspirin 325 mg 01/12/24 16:00 01/17/24 08:43 Aspirin 325 Mg Tablet FEED TUBE 325 mg DAILY@0800 CARMELA Administration Atorvastatin Calcium 40 mg 01/13/24 09:00 01/26/24 08:04 Atorvastatin 40 Mg Tablet FEED TUBE 40 mg DAILY CARMELA Administration Dextrose 12.5 gm 01/07/24 13:18 01/26/24 08:02 Dextrose 50% 25 Gm/50 Ml Syringe IV PUSH 12.5 gm PRN PRN Administration Hypoglycemia Protocol Epoetin Dane-epbx 10,000 units 01/12/24 09:20 01/26/24 08:16 Epoetin Dane-Epbx 10,000 Units/Ml Vial SUB-Q 10,000 units MOWEFR@09 CARMELA Administration Glucagon 1 mg 01/07/24 13:18 Glucagon For Inj 1 Mg Vial IM PRN PRN Hypoglycemia Protocol Glucose 15 gm 01/07/24 13:18 Glucose Oral Gel 15 Gm Of Glucse In 37.5 Gm Tube PO PRN PRN Hypoglycemia Protocol Hydralazine HCl 10 mg 01/18/24 02:20 01/18/24 05:40 Hydralazine 10 Mg Tablet PO Not Given Q6HR CARMELA Dextrose 1,000 mls @ 100 mls/hr 01/07/24 13:18 Dextrose 5% 1,000 Ml IVPB PRN PRN Hypoglycemia Protocol Albumin Human 50 mls @ 999 mls/hr 01/07/24 17:11 01/26/24 10:38 Albutein IVPB 03/07/24 17:10 50 mls/hr Q10M PRN Administration HYPOTENSION Levetiracetam 500 mg in 100 mls @ 400 mls/hr 01/07/24 21:00 01/25/24 21:14 Keppra Iv IVPB Infused Q24H CARMELA Infusion Micafungin Sodium 100 mg/ 100 mls @ 100 mls/hr 01/20/24 16:00 01/25/24 21:27 Sodium Chloride IVPB Infused Q24H CARMELA Infusion Meropenem 500 mg in 100 mls @ 200 mls/hr 01/22/24 18:00 01/25/24 20:22 IVPB Infused Q24H [facility] Infusion Vancomycin HCl 750 mg in 250 mls @ 250 mls/hr 01/26/24 16:00 Vancomycin 750 Mg/Ns 250 Ml IVPB 01/26/24 16:59 ONCE ONE Insulin Aspart 4 - 8 units 01/10/24 07:55 01/26/24 08:06 Insulin Aspart (*Bkc) 100 Units/Ml SUB-Q Not Given Q4H [facility] Protocol Insulin Glargine 80 units 01/26/24 09:00 Insulin Glargine (*Bkc) 100 Units/Ml SUB-Q Q12H [facility] Labetalol HCl 10 mg 01/18/24 08:37 01/25/24 23:12 Labetalol Hcl Inj 100 Mg/20 Ml Vial IV PUSH 10 mg Q4H PRN Administration Hypertension Metoprolol Tartrate 100 mg 01/16/24 09:00 01/17/24 08:43 Metoprolol Tartrate 50 Mg Tab FEED TUBE 100 mg Q12HR CARMELA Administration Multi-Ingred Cream/Lotion/Oil/Oint 1 applic 01/07/24 21:00 01/26/24 08:05 Mineral Oil/White Petrolatum Ointment EACH EYE 1 applic Q12HR CARMELA Administration Pantoprazole Sodium 40 mg 01/07/24 21:00 01/26/24 08:04 Pantoprazole Sodium Iv 40 Mg Vial IV PUSH 40 mg Q12HR CARMELA Administration Vancomycin HCl 1 each 01/20/24 14:59 Vancomycin For Hemodialysis IVPB PRN PRN Vancomycin Protocol Radiology Results: ITS Impressions Abdomen/Pelvis CT 01/07/24 16:52 IMPRESSION: No acute abdominopelvic process. Specifically, there is no CT evidence of bowel obstruction. No definite evidence of renal injury, noting that low-grade renal injury as can be difficult to detect without contrast. Renal Ultrasound 01/08/24 10:47 IMPRESSION: 1. Normal kidney sizes. No hydronephrosis. Chest/Abdomen/Pelvis CT 01/12/24 15:08 IMPRESSION: Interval enlargement of the liver, when compared with previous examination. Flattening of the inferior vena cava suggesting severe hypovolemia. Interval development of basilar atelectasis and trace bilateral pleural effusions. No additional findings which represents a change from prior examination performed 01/07/2024. Supportive devices are in good position. Redemonstration of multiple stones within the gallbladder which is not distended. Head CT 01/12/24 15:31 IMPRESSION: 1. 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 2. Large distribution of chronic encephalomalacia in the expected distribution of left middle cerebral artery. Abdomen Ultrasound 01/13/24 09:31 IMPRESSION: 1. Cholelithiasis. 2. Normal liver Doppler. Arterial/Peripheral Duplex 01/13/24 09:31 IMPRESSION: 1. Cholelithiasis. 2. Normal liver Doppler. Venous Doppler Study 01/15/24 17:14 IMPRESSION: 1. Deep vein thrombosis involving left common femoral vein. ADDENDUM: 01/15/24 [id number] I called this result to Apurva Mclean. Abdomen X-Ray 01/16/24 06:03 Impression: NG tube in satisfactory position. IVC Filter Placement X-Ray 01/20/24 06:18 IMPRESSION: Fluoroscopy used during IVC filter insertion. Chest X-Ray 01/26/24 06:15 IMPRESSION: 1. Stable mild atelectasis at left lung base. Labs Labs: Laboratory Tests 01/26/24 06:20 01/26/24 06:20 Calcium 8.2 L Phosphorus 3.4 Magnesium 2.3 Total Bilirubin 0.6 AST 44 H ALT 22 Alkaline Phosphatase 98 Total Protein 6.0 L Albumin 2.8 L Random Vancomycin 19.3 Microbiology 01/19/24 08:11 Blood Blood Culture - Final Staphylococcus epidermidis
[2024-01-26] MEDS: ALBUMIN HUMAN 25% 12.5 GM/50ML 50 ML IVPB (10:38)
--- NOTE | 2024-01-26 10:49 | PCNFU ---
Nutrition Follow-Up Complete: Inadequate energy intake related to mechanical ventilation, increased needs from dialysis as evidenced by need for full tube feeding Meet estimated nutrition needs - Goal being met with tube feeding. Continue with same goal Goal: Pt current nutrition is Nepro @ 50 ml/h provides 100% EER and 93% estimated protein needs. Nutrition recommendation: No new nutrition recommendations. Continue with current nutrition care plan and orders. Agree with orders Last recorded weight is 83.4 kg. Bowel Motility: Liquid stool output in FMS Labs Reviewed: Hgb 7.7, Hct 26.1, Alb 2.8, Na 136, BUN 58, Cre 2.8, Glu 118 Meds Noted: Cefepime, protonix, Vancomycin. No pressors. No sedation. Skin: Friction, maceration, no pressure injuries Additional Notes: Stable on tube feedings. Continue current nutrition care plan. Monitoring tube feeding tolerance, labs, weights, output, plan of care Follow up daily in rounds, reassess Monday and Monday
[2024-01-26 12:00] LABS: Glucose Point of Care 111 mg/dl (65-105)
--- NOTE | 2024-01-26 14:32 | P.PNCROSS_ITS ---
Event Note Event Note Event Note: I spoke to patient's son carmella by phone and he told me the patient's sister rimma read not be able to get her visa for next 8-10 days and will not be here till then. He states that he has brother and father all agree that would be unreasonable to continue waiting for her. They are going to discuss among themselves and most likely proceed with palliative extubation and comfort care earlier. He states that he and his family will be coming to the hospital later today to visit the patient and make further decision. I will further discuss with them once they are here and proceed accordingly.
--- NOTE | 2024-01-26 14:40 | PM.IMPN ---
Progress Note: A&P Assessment and Plan (1) Septic shock: Code(s): A41.9 - Sepsis, unspecified organism; R65.21 - Severe sepsis with septic shock Status: Resolved Assessment and Plan: RESOLVED Patient hypotensive on presentation Patient was given IV fluid bolus followed by maintenance IV fluids -lactic acid has improved -Levophed weaned off -off IV fluids -source appears to be UTI. Urine and blood cultures are negative till now, STATUS POST CEFTRIAXONE -status post stress dose steroids - 01/10 continues to have fever although other markers of infection are improved as normal WBC. 01/10: Repeat blood cultures are negative x2 Clark catheter change 01/11 Minimal respiratory secretions, sputum cultures growing yeast which is likely a colonization Change Rocephin to cefepime and vancomycin 01/14: Patient continues to have low-grade fever but overall fever curve is down. White count is normal. CT scan of chest and pelvis does not show any area suggestive of infection. Clark catheter was changed. Procalcitonin level is also on the lower side. Continue cefepime but will discontinue vancomycin at this time. Cultures are negative till now. -lipase was within normal limits -01/15/2024: lower extremity venous Dopplers: Left common femoral vein DVT -01/14: patient was started on heparin infusion OFF all abx 01/18: Remains febrile, patient has been carl cultured this morning, WBC trending up -chest x-ray is not show any new infiltrates -holding antibiotics for now, if patient continues to spike fevers and WBC count increase tomorrow will add antibiotics 01/18: Blood culture growing Gram-positive cocci in clusters 1/2 bottles 01/18: Urine cultures growing Tatiana albicans 01/18: Sputum cultures growing Yeast 01/19: Patient remained febrile with T-max of 101.3. Patient was started on vancomycin, meropenem and micafungin (01/19) which will be continued. Patient afebrile now. Continue antibiotics (2) Stroke: Code(s): I63.9 - Cerebral infarction, unspecified Status: Acute Assessment and Plan: Patient presented with altered mental status but at that time patient was respiratory failure acute renal failure acidosis and sepsis. CT scan on presentation showed only old stroke and encephalomalacia Since then patient has not woken up despite holding sedation for multiple days and dialysis. 01/[address] was done which showed. 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 These are likely secondary to hypotension Echo did not show any thrombus or ASD Continue aspirin and statin Neurology following EEG 01/12 - This is an abnormal EEG due to presence of moderate diffuse background slowing suggested generalized cephalopathy. No significant change in neurological status (3) Encephalopathy: Code(s): G93.40 - Encephalopathy, unspecified Status: Acute Assessment and Plan: Patient presented with encephalopathy, altered mental status, delirium, confusion -most likely related to uremia, infection, severe acidosis and baseline flow malacia from past stroke TSH and ammonia normal Patient has been off sedation since 01/09/2024. Still not responsive.. Will continue hold sedatives. EEG as above Patient was dialyzed 01/11 to help with drug removal. Minimal improved Encephalopathy likely secondary to strokes. See above. Neurology evaluated the patient Patient has been off sedation since 01/09/2024, has not woken up Ammonia levels are normal 01/11: Repeat CT scan of the brain IMPRESSION: 1. 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 2. Large distribution of chronic encephalomalacia in the expected distribution of left middle cerebral artery. 01/06: CT brain on admission IMPRESSION: 1. No acute intracranial process. 2. 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 3. Additional more diffuse likely age-related mild to moderate diffuse volume loss and mild scattered white matter hypoattenuation consistent with chronic small vessel ischemic disease. (4) Acute respiratory failure: Code(s): J96.00 - Acute respiratory failure, unspecified whether with hypoxia or hypercapnia Status: Acute Assessment and Plan: Patient had an episode of emesis in the ER, given her altered mental status encephalopathy, risk of aspiration with impending respiratory failure patient was intubated on 01/06/2025 -chest x-ray and ABG reviewed -patient was on ASV mode of ventilation but now switch back to CMV due to respiratory rate -sedation is on hold since 01/09/2024 -weaning will depend on improvement in mental status. -family does not desire tracheostomy (5) Acute kidney failure: Code(s): N17.9 - Acute kidney failure, unspecified Status: Acute Assessment and Plan: On chronic kidney injury, unknown cause, CT of the abdomen and pelvis did not show any hydronephrosis or urinary obstruction -significant lactic acidosis and metabolic acidosis -patient has a history of diabetes, hypertension which is likely the cause of chronic kidney disease -patient on lisinopril hydrochlorothiazide and metformin at home -patient was given a total of 3 L IV fluid bolus, 1 L in the ER and 2 L in the ICU -sodium bicarb IV pushes x4 in the ICU -patient was started on sodium bicarb infusion after discussing with Nephrology, which her was discontinued once hemodialysis was started -patient was started on hemodialysis and was dialyzed x 3 days -patient continues to have decent urine output - 01/11 patient was dialyzed again 1 L fluid was removed -continue to monitor urine output, electrolytes and renal function -01/16: worsening creatinine, increased edema, decreased urine output. Discussed with Nephrology, patient will dialyzed - 01/22 patient would not be dialyzed due to issues with the catheter. Both ports were flushing and rowing but patient were having high pressure limiting flow. Will plan to change catheter today and re-attempt dialysis. 01/23 right IJ dialysis catheter was changed over a wire to a new catheter. At the time placement the catheter was were adequately but during dialysis there were cane issues hence dialysis would not be done - 01/24 I tested the right IJ dialysis catheter and it was drawing and flushing on all 3 ports but was inconsistent. This could be secondary to catheter abutting the wall. Patient always laying with head turned towards left unable to straighten her head without significant force. A new dialysis catheter was placed in right femoral vein after cleaning and disinfecting the area. Catheter had to change again over a guidewire due to issues with flow from 1 port. Patient was eventually dialyzed 01/25 plan to dialyze again today (6) Diastolic dysfunction: Code(s): I51.89 - Other ill-defined heart diseases Status: Acute Assessment and Plan: Echo 01/11 Summary 1. Left ventricular systolic function is normal, estimated at 60-65%. 2. There is moderately increased left ventricular wall thickness. 3. Intact interatrial septum visualized by agitated saline imaging. 4. There is mild aortic valve calcification. 5. There is mild aortic valve stenosis with a peak velocity of 190 cm/s,mean gradient of 8 mmHg, and aortic valve area of 1.8 cm2. 6. There is mild tricuspid valve regurgitation. 7. Mild pulmonary hypertension, estimated pulmonary arterial systolicpressure is 46 mmHg. (7) Insulin dependent diabetes mellitus: Status: Chronic Assessment and Plan: Continue sliding scale insulin Accu-Cheks Blood sugar low this morning. Will hold Lantus this morning. (8) Right hemiparesis: Code(s): G81.91 - Hemiplegia, unspecified affecting right dominant side Status: Acute Assessment and Plan: History of left-sided cerebral hemisphere and CVA, residual mild aphasia and right-sided weakness (9) Seizures: Code(s): R56.9 - Unspecified convulsions Status: Acute Assessment and Plan: Patient has a history of seizures, on p.o. Keppra 500 mg p.o. q.12 hours Continue Keppra IV 500 mg IV q.24 (discuss with pharmacist) EEG negative for any seizure-like activity (10) Hypertension: Code(s): I10 - Essential (primary) hypertension Status: Acute Assessment and Plan: Continue amlodipine and p.r.n. labetalol (11) Anemia: Code(s): D64.9 - Anemia, unspecified Status: Acute Assessment and Plan: 01/16: Patient has been on heparin infusion for DVT in the left common femoral vein. Dropped hemoglobin this morning to 6.7 from 7.8. heparin infusion Discontinued -stool for Hemoccult was Negative -01/17: IVC filter placement by surgery Transfuse if hemoglobin less than 7 01/24 hemoglobin 6.2 transfuse 1 unit PRBC Monitor Subjective Date/time seen: 01/26/24 14:40 Interval history: Still off sedation. Patient family wants to talk with mobility architect manager tomorrow. Review of Systems Review of Systems: Unable to obtain due to mental status ROS unobtainable: Yes unobtainable due to endotracheal tube, unobtainable due to medical condition and unobtainable due to mental status Exam Narrative: General: Intubated and sedated HEENT:? Pupils are equal and reactive to light, patient has positive corneal reflex, sclera is clear, ETT in place, facial puffiness noted Neck:? Supple, Respiratory:? Coarse breath sounds bilaterally, decreased at bases no wheezing, adequate air entry Cardiac:? S1-S2 normal, regular rate and rhythm, Abdomen:? Soft, nontender, nondistended, hypoactive bowel sounds, old midline surgical scar noted Extremities:? Dry skin, decreased pedal pulses, right femoral dialysis catheter Neuro:? Patient is intubated, off sedation, PERRL, patient withdraws to pain stimulus in right lower extremities but only intermittently, decerebrate posturing of the upper extremities on pain stimuli. Spontaneous respiratory effort present no other response Skin:? Dry and flaky skin on lower extremities, skin is warm Psych:? Unable to assess at this time Objective Data Vital Signs Vital Signs: Vital Signs - 24 hr 01/25/24 15:42 01/25/24 15:45 01/25/24 16:00 Temperature 98.9 F Pulse Rate 89 Respiratory Rate 14 19 Blood Pressure 117/60 Pulse Oximetry 100 Oxygen Delivery Mechanical Ventilation Fraction of Inspired Oxygen 21 21 01/25/24 15:17 01/25/24 15:30 01/25/24 15:45 Temperature Pulse Rate 87 86 88 Respiratory Rate Blood Pressure 170/57 H 162/66 H 146/58 H Pulse Oximetry Oxygen Delivery Fraction of Inspired Oxygen 01/25/24 16:00 01/25/24 16:25 01/25/24 16:00 Temperature Pulse Rate 89 87 92 Respiratory Rate Blood Pressure 117/60 Pulse Oximetry 100 Oxygen Delivery Mechanical Ventilation Fraction of Inspired Oxygen 21 01/25/24 16:15 01/25/24 17:15 01/25/24 17:30 Temperature Pulse Rate 98 90 90 Respiratory Rate Blood Pressure 150/71 H 124/63 133/64 Pulse Oximetry Oxygen Delivery Fraction of Inspired Oxygen 01/25/24 16:30 01/25/24 16:45 01/25/24 17:00 Temperature Pulse Rate 88 88 94 Respiratory Rate Blood Pressure 105/54 L 104/60 122/62 Pulse Oximetry Oxygen Delivery Fraction of Inspired Oxygen 01/25/24 18:00 01/25/24 18:00 01/25/24 17:45 Temperature 99.8 F H Pulse Rate 91 91 97 Respiratory Rate 21 H Blood Pressure 112/60 157/78 H Pulse Oximetry 100 Oxygen Delivery Fraction of Inspired Oxygen 01/25/24 18:00 01/25/24 18:15 01/25/24 18:30 Temperature Pulse Rate 92 91 96 Respiratory Rate Blood Pressure 104/57 L 112/60 117/62 Pulse Oximetry Oxygen Delivery Fraction of Inspired Oxygen 01/25/24 18:45 01/25/24 20:00 01/25/24 20:00 Temperature 99.4 F Pulse Rate 94 88 Respiratory Rate 20 Blood Pressure 103/67 130/58 L Pulse Oximetry 100 Oxygen Delivery Fraction of Inspired Oxygen 21 01/25/24 19:00 01/25/24 19:24 01/25/24 19:15 Temperature 100.0 F H Pulse Rate 91 90 97 Respiratory Rate 20 Blood Pressure 112/57 L 114/66 103/68 Pulse Oximetry Oxygen Delivery Fraction of Inspired Oxygen 01/25/24 19:18 01/25/24 20:00 01/25/24 20:00 Temperature Pulse Rate 92 88 Respiratory Rate Blood Pressure 128/64 Pulse Oximetry 100 Oxygen Delivery Mechanical Ventilation Fraction of Inspired Oxygen 21 01/25/24 22:00 01/25/24 20:08 01/25/24 23:12 Temperature 98.7 F Pulse Rate 88 92 87 Respiratory Rate 14 Blood Pressure 170/72 H Pulse Oximetry 100 100 Oxygen Delivery Mechanical Ventilation Fraction of Inspired Oxygen 21 01/25/24 22:00 01/25/24 23:51 01/26/24 00:00 Temperature Pulse Rate 88 79 Respiratory Rate Blood Pressure 147/59 H Pulse Oximetry Oxygen Delivery Fraction of Inspired Oxygen 01/26/24 00:00 01/26/24 00:00 01/26/24 00:00 Temperature 99.1 F Pulse Rate 79 Respiratory Rate 14 Blood Pressure 139/65 Pulse Oximetry 100 100 Oxygen Delivery Mechanical Ventilation Fraction of Inspired Oxygen 21 21 01/25/24 23:12 01/25/24 23:05 01/26/24 02:00 Temperature Pulse Rate 78 80 Respiratory Rate Blood Pressure 166/80 H Pulse Oximetry 100 Oxygen Delivery Mechanical Ventilation Fraction of Inspired Oxygen 21 01/26/24 02:00 01/26/24 02:48 01/26/24 04:00 Temperature 99.2 F 98.8 F Pulse Rate 80 80 84 Respiratory Rate 14 14 Blood Pressure 129/64 150/65 H Pulse Oximetry 100 100 100 Oxygen Delivery Mechanical Ventilation Fraction of Inspired Oxygen 21 01/26/24 04:00 01/26/24 04:00 01/26/24 05:05 Temperature Pulse Rate 84 Respiratory Rate Blood Pressure Pulse Oximetry 100 100 Oxygen Delivery Mechanical Ventilation Mechanical Ventilation Fraction of Inspired Oxygen 21 21 21 01/26/24 04:00 01/26/24 06:00 01/26/24 06:00 Temperature 98.6 F Pulse Rate 84 82 83 Respiratory Rate 14 Blood Pressure 146/71 H Pulse Oximetry 100 Oxygen Delivery Fraction of Inspired Oxygen 01/26/24 07:29 01/26/24 08:00 01/26/24 08:00 Temperature 98.8 F Pulse Rate 88 93 85 Respiratory Rate 15 Blood Pressure 161/69 H Pulse Oximetry 100 100 Oxygen Delivery Mechanical Ventilation Fraction of Inspired Oxygen 21 01/26/24 08:00 01/26/24 08:00 01/26/24 09:00 Temperature Pulse Rate Respiratory Rate Blood Pressure Pulse Oximetry Oxygen Delivery Mechanical Ventilation Fraction of Inspired Oxygen 21 21 21 01/26/24 09:00 01/26/24 09:17 01/26/24 09:30 Temperature 99 F Pulse Rate 84 86 87 Respiratory Rate 17 Blood Pressure 150/61 H 148/63 H 133/58 L Pulse Oximetry 100 Oxygen Delivery Fraction of Inspired Oxygen 01/26/24 10:00 01/26/24 12:18 01/26/24 12:25 Temperature 99.6 F Pulse Rate 94 90 86 Respiratory Rate 18 Blood Pressure 99/56 L 133/65 121/61 Pulse Oximetry 100 Oxygen Delivery Fraction of Inspired Oxygen 01/26/24 10:00 01/26/24 10:00 01/26/24 09:45 Temperature 99.4 F Pulse Rate 95 95 86 Respiratory Rate 14 Blood Pressure 99/56 L 105/56 L Pulse Oximetry 100 Oxygen Delivery Fraction of Inspired Oxygen 01/26/24 10:45 01/26/24 10:15 01/26/24 10:30 Temperature Pulse Rate 87 93 86 Respiratory Rate Blood Pressure 111/59 L 101/80 91/58 L Pulse Oximetry Oxygen Delivery Fraction of Inspired Oxygen 01/26/24 11:00 01/26/24 11:15 01/26/24 11:45 Temperature Pulse Rate 87 90 94 Respiratory Rate Blood Pressure 118/61 135/66 108/69 Pulse Oximetry Oxygen Delivery Fraction of Inspired Oxygen 01/26/24 11:30 01/26/24 12:00 01/26/24 10:49 Temperature Pulse Rate 90 90 90 Respiratory Rate Blood Pressure 114/60 112/62 Pulse Oximetry 100 Oxygen Delivery Mechanical Ventilation Fraction of Inspired Oxygen 21 01/26/24 12:00 01/26/24 12:00 01/26/24 12:00 Temperature 99.7 F H Pulse Rate 90 90 Respiratory Rate 17 Blood Pressure 112/62 Pulse Oximetry 100 Oxygen Delivery Fraction of Inspired Oxygen 21 01/26/24 12:00 01/26/24 13:35 01/26/24 14:00 Temperature Pulse Rate 86 90 Respiratory Rate Blood Pressure Pulse Oximetry 100 Oxygen Delivery Mechanical Ventilation Mechanical Ventilation Fraction of Inspired Oxygen 21 01/26/24 14:00 Temperature 99.3 F Pulse Rate 90 Respiratory Rate 18 Blood Pressure 151/65 H Pulse Oximetry 100 Oxygen Delivery Fraction of Inspired Oxygen Intake/Output Intake/Output: Intake & Output 01/23/24 01/24/24 01/25/24 01/26/24 23:59 23:59 23:59 23:59 Intake Total 1849 1825 2041 721 Output Total 978 950 1696 1755 Balance 1624 5271 061 -4258 Meds/Results Medications: Active Medications Generic Name Dose Route Start Last Admin Trade Name Freq PRN Reason Stop Dose Admin Acetaminophen 650 mg 01/10/24 08:02 01/20/24 16:00 Acetaminophen 325 Mg Tablet FEED TUBE 650 mg Q6H PRN Administration Mild Pain (1-3) or Fever Alteplase, Recombinant 2 mg 01/23/24 09:15 01/23/24 09:57 Alteplase 2 Mg Vial (Cathflo) IV PUSH 2 mg ONCE PRN Administration Line Occlusion Alteplase, Recombinant 2 mg 01/23/24 09:15 Alteplase 2 Mg Vial (Cathflo) IV PUSH ONCE PRN Line Occlusion Amlodipine Besylate 10 mg 01/22/24 08:50 01/26/24 08:04 Amlodipine Besylate 10 Mg Tablet FEED TUBE 10 mg DAILY CARMELA Administration Aspirin 325 mg 01/12/24 16:00 01/17/24 08:43 Aspirin 325 Mg Tablet FEED TUBE 325 mg DAILY@0800 CARMELA Administration Atorvastatin Calcium 40 mg 01/13/24 09:00 01/26/24 08:04 Atorvastatin 40 Mg Tablet FEED TUBE 40 mg DAILY CARMELA Administration Dextrose 12.5 gm 01/07/24 13:18 01/26/24 08:02 Dextrose 50% 25 Gm/50 Ml Syringe IV PUSH 12.5 gm PRN PRN Administration Hypoglycemia Protocol Epoetin Dane-epbx 10,000 units 01/12/24 09:20 01/26/24 08:16 Epoetin Dane-Epbx 10,000 Units/Ml Vial SUB-Q 10,000 units MOWEFR@09 CARMELA Administration Glucagon 1 mg 01/07/24 13:18 Glucagon For Inj 1 Mg Vial IM PRN PRN Hypoglycemia Protocol Glucose 15 gm 01/07/24 13:18 Glucose Oral Gel 15 Gm Of Glucse In 37.5 Gm Tube PO PRN PRN Hypoglycemia Protocol Hydralazine HCl 10 mg 01/18/24 02:20 01/18/24 05:40 Hydralazine 10 Mg Tablet PO Not Given Q6HR CARMELA Dextrose 1,000 mls @ 100 mls/hr 01/07/24 13:18 Dextrose 5% 1,000 Ml IVPB PRN PRN Hypoglycemia Protocol Albumin Human 50 mls @ 999 mls/hr 01/07/24 17:11 01/26/24 10:38 Albutein IVPB 03/07/24 17:10 50 mls/hr Q10M PRN Administration HYPOTENSION Levetiracetam 500 mg in 100 mls @ 400 mls/hr 01/07/24 21:00 01/25/24 21:14 Keppra Iv IVPB Infused Q24H CARMELA Infusion Micafungin Sodium 100 mg/ 100 mls @ 100 mls/hr 01/20/24 16:00 01/25/24 21:27 Sodium Chloride IVPB Infused Q24H CARMELA Infusion Meropenem 500 mg in 100 mls @ 200 mls/hr 01/22/24 18:00 01/25/24 20:22 IVPB Infused Q24H CARMELA Infusion Vancomycin HCl 750 mg in 250 mls @ 250 mls/hr 01/26/24 16:00 Vancomycin 750 Mg/Ns 250 Ml IVPB 01/26/24 16:59 ONCE ONE Insulin Aspart 4 - 8 units 01/10/24 07:55 01/26/24 13:17 Insulin Aspart (*Bkc) 100 Units/Ml SUB-Q Not Given Q4H [facility] Protocol Insulin Glargine 80 units 01/26/24 09:00 Insulin Glargine (*Bkc) 100 Units/Ml SUB-Q Q12H [facility] Labetalol HCl 10 mg 01/18/24 08:37 01/25/24 23:12 Labetalol Hcl Inj 100 Mg/20 Ml Vial IV PUSH 10 mg Q4H PRN Administration Hypertension Metoprolol Tartrate 100 mg 01/16/24 09:00 01/17/24 08:43 Metoprolol Tartrate 50 Mg Tab FEED TUBE 100 mg Q12HR CARMELA Administration Multi-Ingred Cream/Lotion/Oil/Oint 1 applic 01/07/24 21:00 01/26/24 08:05 Mineral Oil/White Petrolatum Ointment EACH EYE 1 applic Q12HR CARMELA Administration Pantoprazole Sodium 40 mg 01/07/24 21:00 01/26/24 08:04 Pantoprazole Sodium Iv 40 Mg Vial IV PUSH 40 mg Q12HR CARMELA Administration Vancomycin HCl 1 each 01/20/24 14:59 Vancomycin For Hemodialysis IVPB PRN PRN Vancomycin Protocol Radiology Results: ITS Impressions Abdomen/Pelvis CT 01/07/24 16:52 IMPRESSION: No acute abdominopelvic process. Specifically, there is no CT evidence of bowel obstruction. No definite evidence of renal injury, noting that low-grade renal injury as can be difficult to detect without contrast. Renal Ultrasound 01/08/24 10:47 IMPRESSION: 1. Normal kidney sizes. No hydronephrosis. Chest/Abdomen/Pelvis CT 01/12/24 15:08 IMPRESSION: Interval enlargement of the liver, when compared with previous examination. Flattening of the inferior vena cava suggesting severe hypovolemia. Interval development of basilar atelectasis and trace bilateral pleural effusions. No additional findings which represents a change from prior examination performed 01/07/2024. Supportive devices are in good position. Redemonstration of multiple stones within the gallbladder which is not distended. Head CT 01/12/24 15:31 IMPRESSION: 1. 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 2. Large distribution of chronic encephalomalacia in the expected distribution of left middle cerebral artery. Abdomen Ultrasound 01/13/24 09:31 IMPRESSION: 1. Cholelithiasis. 2. Normal liver Doppler. Arterial/Peripheral Duplex 01/13/24 09:31 IMPRESSION: 1. Cholelithiasis. 2. Normal liver Doppler. Venous Doppler Study 01/15/24 17:14 IMPRESSION: 1. Deep vein thrombosis involving left common femoral vein. ADDENDUM: 01/15/24 [id number] I called this result to Apurva Mclean. Abdomen X-Ray 01/16/24 06:03 Impression: NG tube in satisfactory position. IVC Filter Placement X-Ray 01/20/24 06:18 IMPRESSION: Fluoroscopy used during IVC filter insertion. Chest X-Ray 01/26/24 06:15 IMPRESSION: 1. Stable mild atelectasis at left lung base. Labs Labs: Laboratory Results - last 24 hr 01/25/24 01/25/24 01/25/24 16:13 19:49 23:29 WBC RBC Hgb Hct MCV MCH MCHC RDW Plt Count MPV Sodium Potassium Chloride Carbon Dioxide Anion Gap BUN Creatinine Estim Creat Clear Calc Estimated GFR Glucose POC Capillary Glucose 95 127 H 124 H Calcium Phosphorus Magnesium Total Bilirubin AST ALT Alkaline Phosphatase Total Protein Albumin Random Vancomycin 01/26/24 01/26/24 01/26/24 04:04 06:20 07:58 WBC 10.0 RBC 2.72 L Hgb 7.7 L Hct 26.1 L MCV 96.0 MCH 28.3 MCHC 29.5 L RDW 19.1 H Plt Count 359 MPV 11.1 H Sodium 136 L Potassium 3.7 Chloride 102 Carbon Dioxide 29 Anion Gap 5 BUN 58 H D Creatinine 2.80 H Estim Creat Clear Calc 21 Estimated GFR 17 L Glucose 75 POC Capillary Glucose 86 59 L* Calcium 8.2 L Phosphorus 3.4 Magnesium 2.3 Total Bilirubin 0.6 AST 44 H ALT 22 Alkaline Phosphatase 98 Total Protein 6.0 L Albumin 2.8 L Random Vancomycin 19.3 01/26/24 01/26/24 08:18 11:58 WBC RBC Hgb Hct MCV MCH MCHC RDW Plt Count MPV Sodium Potassium Chloride Carbon Dioxide Anion Gap BUN Creatinine Estim Creat Clear Calc Estimated GFR Glucose POC Capillary Glucose 118 H 111 H Calcium Phosphorus Magnesium Total Bilirubin AST ALT Alkaline Phosphatase Total Protein Albumin Random Vancomycin Quality VTE Prophylaxis VTE prophylaxis: mechanical ordered and pharmacologic ordered Hospitalist MIPS Advance Care Plan I have confirmed that the patient's Advanced Care Plan is present, code status is documented, or surrogate decision maker is listed in patient medical record.: Yes Medication Reconciliation I have utilized all available resources to obtain, update and review the patients current medications (includes all prescriptions, OTC, herbals, cannabis, and nutritional supplements).: Yes
[2024-01-26] MEDS: MICAFUNGIN SODIUM 100 MG in SODIUM CHLORIDE 0.9% IV 100 ML IVPB (15:31)
[2024-01-26 16:09] LABS: Glucose Point of Care 127 mg/dl (65-105)
[2024-01-26] MEDS: VANCOMYCIN 750 MG/NS 250 ML 750 MG/250 ML BAG 250 MG IVPB (16:30)
--- NOTE | 2024-01-26 17:35 | PC.NURSE ---
Attempted to speak with family regarding pt's condition. It was communicated to me by the son that the would like to speak with the physician for the patient. I stated that the jack frame tender left for the day but I could have a hospitalist that saw the patient today come to speak with them. I called hospitalist Dr. ALFARO he said that he could come speak with them in about an hour, at 18:30. Family stated they would rather come back in the morning to speak with the physician they spoke with earlier. Family left very shortly after.
[2024-01-26] MEDS: MEROPENEM 500 MG/NS 100 ML 500 MG/100 ML BAG 200 MG IVPB (17:45)
[2024-01-26 19:44] LABS: Glucose Point of Care 112 mg/dl (65-105)
[2024-01-26] MEDS: levETIRAcetam 500MG/NACL 100ML 500 MG/100 ML BAG 400 MG IVPB (20:09)
[2024-01-26 20:37] LABS: Glucose Point of Care 111 mg/dl (65-105)
[2024-01-27] VITALS (17 sets, daily range): BP systolic 97–140; BP diastolic 49–67; PULSE 88–98; RESP 16–30; TEMP 37–37.9; O2SAT 92–100
[2024-01-27 00:03] LABS: Glucose Point of Care 104 mg/dl (65-105)
[2024-01-27 04:00] LABS: Glucose Point of Care 107 mg/dl (65-105)
[2024-01-27 06:00] LABS: Hematocrit 25.8 % (37.0-47.0); Hemoglobin 7.7 g/dL (12.0-15.0); Mean Corpuscular HGB Conc 29.8 g/dl (32-36); Mean Corpuscular Hemoglobin 29.3 pg (26-34); Mean Corpuscular Volume 98.1 fl (80-100); Platelet Count Result 382 k/mm3 (150-375); Red Blood Count 2.63 M/mm3 (4.2-5.4); Red Cell Distribution Width 18.7 % (11.5-14.5); White Blood Count 11.9 K/mm3 (4.5-10.0)
[2024-01-27 06:10] LABS: Alanine Aminotransferase 19 U/L (6-35); Albumin Level 2.9 g/dL (3.5-5.1); Alkaline Phosphatase 97 U/L (38-126); Anion Gap 10 mmol/L (4-12); Aspartate Amino Transferase 38 U/L (14-36); Bilirubin,Total 0.5 mg/dL (0.2-1.3); Blood Urea Nitrogen 53 mg/dL (7-17); Calcium 8.3 mg/dL (8.4-10.2); Carbon Dioxide 26 mmol/L (22-30); Chloride 103 mmol/L (98-107); Estimated CRCL calculation 23 ml/min; Estimated Glomerular Filt Rate 19; Glucose 120 mg/dL (65-110); Magnesium 2.3 mg/dL (1.6-2.3); Potassium 3.9 mmol/L (3.4-5.0); Sodium 139 mmol/L (137-145)
[2024-01-27 06:26] LABS: Vancomycin Random 20.9 ug/mL (10-20)
[2024-01-27 08:03] LABS: Glucose Point of Care 100 mg/dl (65-105)
[2024-01-27] MEDS: PANTOPRAZOLE SODIUM IV 40 MG VIAL IV PUSH (08:17)
[2024-01-27] MEDS: ATORVASTATIN 40 MG TABLET FEED TUBE (08:17)
[2024-01-27] MEDS: amLODIPine BESYLATE 10 MG TABLET FEED TUBE (08:17)
[2024-01-27] MEDS: MINERAL OIL/WHITE PETROLATUM OINTMENT 1 APPLIC EACH EYE ×2 (08:22→21:33)
--- NOTE | 2024-01-27 09:53 | P.PNNP_ITS ---
Progress Note: A&P Assessment and Plan (1) Acute kidney failure: Code(s): N17.9 - Acute kidney failure, unspecified Status: Acute Assessment and Plan: * baseline creatinine not known * reportedly has some underlying renal insufficiency/CKD per family * still awaiting outside records * evaluation to date noted: * CT of abd/pelvis and renal ultrasound negative for obstruction * urine eosinophils negative * CPK normal * urine electrolytes non-prerenal * UA suggestive of infection * proteinuria noted complicated by severe acidosis and hyperkalemia on admission * etiology likely multifactorial: * infection/sepsis * hemodynamic instability/shock * SRINIVAS-I + HCTZ use prior to admission * possible prerenal factors * metformin use prior to admission * continued BP medications prior to admission * no improvement in mental status with dialytic interventions * stable electrolytes * HD was done yesterday. Hold off over the weekend and reassess on Monday. * Family gathering to decide aggressiveness of care. * Discussed with Dr. Mallory (2) Septic shock: Code(s): A41.9 - Sepsis, unspecified organism; R65.21 - Severe sepsis with septic shock Status: Resolved Assessment and Plan: * on/off fevers * repeat cultures noted * on antibiotics * off pressors * follow hemodynamics (3) Acute respiratory failure: Code(s): J96.00 - Acute respiratory failure, unspecified whether with hypoxia or hypercapnia Status: Acute Assessment and Plan: * due to AMS + emesis and concerns for aspiration and inability to protect air way * intubated and on mechanical ventilation * continue ventilator support - off sedation * weaning as tolerated but mentation is still an issue (4) Encephalopathy: Code(s): G93.40 - Encephalopathy, unspecified Status: Acute Assessment and Plan: * as noted by presentation of altered mental status, delirium, and confusion * CT of brain shows several strokes * TSH and ammonia levels noted * HD did not help the mental status * still unresponsive (5) Stroke: Code(s): I63.9 - Cerebral infarction, unspecified Status: Acute Assessment and Plan: * as noted by repeat CT of head on 01/11: * Extensive bilateral acute infarcts in the expected distributions of the bilateral middle cerebral arteries. * presumably secondary to hypotension * Echo did not show any thrombus or ASD * remains unresponsive at this time (6) Anemia: Code(s): D64.9 - Anemia, unspecified Status: Acute Assessment and Plan: * noted drop in H/H by labs on 01/16 and 01/24 * was on heparin gtt for left LE DVT (but off now) * PRBC transfusion per protocol * ALICE with dialysis * Hemoglobin 7.7 today. 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 Unresponsive. On no pressors or sedatives Exam Narrative: General: somewhat ill appearing female intubated and on mechanical ventilation Heart: normal S1 and S2; no rub or gallop Lungs: coarse breath sounds bilaterally Abdomen: soft, nontender, nondistended, positive bowel sounds Extremities: no cyanosis or clubbing; trace edema Skin: no acute rash Objective Data Vital Signs Vital Signs: Vital Signs - 24 hr 01/26/24 10:00 01/26/24 12:18 01/26/24 12:25 Temperature 99.6 F Pulse Rate 94 90 86 Respiratory Rate 18 Blood Pressure 99/56 L 133/65 121/61 Pulse Oximetry 100 Oxygen Delivery Fraction of Inspired Oxygen 01/26/24 10:00 01/26/24 10:00 01/26/24 10:45 Temperature 99.4 F Pulse Rate 95 95 87 Respiratory Rate 14 Blood Pressure 99/56 L 111/59 L Pulse Oximetry 100 Oxygen Delivery Fraction of Inspired Oxygen 01/26/24 10:15 01/26/24 10:30 01/26/24 11:00 Temperature Pulse Rate 93 86 87 Respiratory Rate Blood Pressure 101/80 91/58 L 118/61 Pulse Oximetry Oxygen Delivery Fraction of Inspired Oxygen 01/26/24 11:15 01/26/24 11:45 01/26/24 11:30 Temperature Pulse Rate 90 94 90 Respiratory Rate Blood Pressure 135/66 108/69 114/60 Pulse Oximetry Oxygen Delivery Fraction of Inspired Oxygen 01/26/24 12:00 01/26/24 10:49 01/26/24 12:00 Temperature Pulse Rate 90 90 90 Respiratory Rate Blood Pressure 112/62 Pulse Oximetry 100 Oxygen Delivery Mechanical Ventilation Fraction of Inspired Oxygen 21 01/26/24 12:00 01/26/24 12:00 01/26/24 12:00 Temperature 99.7 F H Pulse Rate 90 Respiratory Rate 17 Blood Pressure 112/62 Pulse Oximetry 100 Oxygen Delivery Mechanical Ventilation Fraction of Inspired Oxygen 21 21 01/26/24 13:35 01/26/24 14:00 01/26/24 14:00 Temperature 99.3 F Pulse Rate 86 90 90 Respiratory Rate 18 Blood Pressure 151/65 H Pulse Oximetry 100 100 Oxygen Delivery Mechanical Ventilation Fraction of Inspired Oxygen 21 01/26/24 16:22 01/26/24 16:00 01/26/24 16:00 Temperature Pulse Rate 94 89 Respiratory Rate Blood Pressure Pulse Oximetry 100 Oxygen Delivery Mechanical Ventilation Fraction of Inspired Oxygen 21 21 01/26/24 16:00 01/26/24 16:00 01/26/24 18:00 Temperature 99.5 F Pulse Rate 91 89 Respiratory Rate 19 Blood Pressure 145/67 H Pulse Oximetry 100 Oxygen Delivery Mechanical Ventilation Fraction of Inspired Oxygen 21 01/26/24 18:00 01/26/24 19:24 01/26/24 20:00 Temperature 99.7 F H 100.2 F H Pulse Rate 89 90 90 Respiratory Rate 16 16 Blood Pressure 148/64 H 136/58 L Pulse Oximetry 100 100 100 Oxygen Delivery Mechanical Ventilation Fraction of Inspired Oxygen 21 01/26/24 20:00 01/26/24 20:00 01/26/24 20:00 Temperature Pulse Rate 89 Respiratory Rate Blood Pressure Pulse Oximetry Oxygen Delivery Mechanical Ventilation Fraction of Inspired Oxygen 21 21 01/26/24 22:00 01/26/24 22:00 01/27/24 00:10 Temperature 100.4 F H 99.3 F Pulse Rate 93 93 92 Respiratory Rate 18 18 Blood Pressure 138/62 132/56 L Pulse Oximetry 100 100 Oxygen Delivery Fraction of Inspired Oxygen 01/26/24 23:00 01/27/24 00:00 01/27/24 00:00 Temperature Pulse Rate 93 Respiratory Rate Blood Pressure Pulse Oximetry 100 Oxygen Delivery Mechanical Ventilation Mechanical Ventilation Fraction of Inspired Oxygen 21 21 21 01/27/24 00:00 01/27/24 02:25 01/27/24 02:34 Temperature 100.2 F H Pulse Rate 93 90 95 Respiratory Rate 18 Blood Pressure 136/58 L Pulse Oximetry 100 100 Oxygen Delivery Mechanical Ventilation Fraction of Inspired Oxygen 21 01/27/24 02:00 01/27/24 04:00 01/27/24 04:00 Temperature 100 F H Pulse Rate 94 92 91 Respiratory Rate 20 Blood Pressure 140/67 Pulse Oximetry 100 Oxygen Delivery Fraction of Inspired Oxygen 01/27/24 04:00 01/27/24 04:00 01/27/24 05:59 Temperature Pulse Rate 91 Respiratory Rate Blood Pressure Pulse Oximetry 100 Oxygen Delivery Mechanical Ventilation Mechanical Ventilation Fraction of Inspired Oxygen 21 21 21 01/27/24 06:00 01/27/24 06:00 01/27/24 08:00 Temperature 99.5 F 99.7 F H Pulse Rate 88 88 94 Respiratory Rate 17 16 Blood Pressure 136/63 137/63 Pulse Oximetry 100 100 Oxygen Delivery Fraction of Inspired Oxygen 01/27/24 08:00 01/27/24 08:00 01/27/24 08:00 Temperature Pulse Rate 94 95 Respiratory Rate 18 Blood Pressure Pulse Oximetry 100 Oxygen Delivery Mechanical Ventilation Fraction of Inspired Oxygen 21 21 01/27/24 08:30 Temperature Pulse Rate 95 Respiratory Rate Blood Pressure Pulse Oximetry 100 Oxygen Delivery Mechanical Ventilation Fraction of Inspired Oxygen 21 Intake/Output Intake/Output: Intake & Output 01/24/24 01/25/24 01/26/24 01/27/24 23:59 23:59 23:59 23:59 Intake Total 1825 2041 1951 818 Output Total 725 1780 1930 200 Balance 1100 261 21 618 Meds/Results Medications: Active Medications Generic Name Dose Route Start Last Admin Trade Name Freq PRN Reason Stop Dose Admin Acetaminophen 650 mg 01/10/24 08:02 01/20/24 16:00 Acetaminophen 325 Mg Tablet FEED TUBE 650 mg Q6H PRN Administration Mild Pain (1-3) or Fever Alteplase, Recombinant 2 mg 01/23/24 09:15 01/23/24 09:57 Alteplase 2 Mg Vial (Cathflo) IV PUSH 2 mg ONCE PRN Administration Line Occlusion Alteplase, Recombinant 2 mg 01/23/24 09:15 Alteplase 2 Mg Vial (Cathflo) IV PUSH ONCE PRN Line Occlusion Amlodipine Besylate 10 mg 01/22/24 08:50 01/27/24 08:17 Amlodipine Besylate 10 Mg Tablet FEED TUBE 10 mg DAILY CARMELA Administration Aspirin 325 mg 01/12/24 16:00 01/17/24 08:43 Aspirin 325 Mg Tablet FEED TUBE 325 mg DAILY@0800 CARMELA Administration Atorvastatin Calcium 40 mg 01/13/24 09:00 01/27/24 08:17 Atorvastatin 40 Mg Tablet FEED TUBE 40 mg DAILY CARMELA Administration Dextrose 12.5 gm 01/07/24 13:18 01/26/24 08:02 Dextrose 50% 25 Gm/50 Ml Syringe IV PUSH 12.5 gm PRN PRN Administration Hypoglycemia Protocol Epoetin Dane-epbx 10,000 units 01/12/24 09:20 01/26/24 08:16 Epoetin Dane-Epbx 10,000 Units/Ml Vial SUB-Q 10,000 units [id number]@09 CARMELA Administration Glucagon 1 mg 01/07/24 13:18 Glucagon For Inj 1 Mg Vial IM PRN PRN Hypoglycemia Protocol Glucose 15 gm 01/07/24 13:18 Glucose Oral Gel 15 Gm Of Glucse In 37.5 Gm Tube PO PRN PRN Hypoglycemia Protocol Hydralazine HCl 10 mg 01/18/24 02:20 01/18/24 05:40 Hydralazine 10 Mg Tablet PO Not Given Q6HR CARMELA Dextrose 1,000 mls @ 100 mls/hr 01/07/24 13:18 Dextrose 5% 1,000 Ml IVPB PRN PRN Hypoglycemia Protocol Albumin Human 50 mls @ 999 mls/hr 01/07/24 17:11 01/26/24 10:38 Albutein IVPB 03/07/24 17:10 50 mls/hr Q10M PRN Administration HYPOTENSION Levetiracetam 500 mg in 100 mls @ 400 mls/hr 01/07/24 21:00 01/26/24 20:24 Keppra Iv IVPB Infused Q24H CARMELA Infusion Micafungin Sodium 100 mg/ 100 mls @ 100 mls/hr 01/20/24 16:00 01/26/24 16:31 Sodium Chloride IVPB Infused Q24H CARMELA Infusion Meropenem 500 mg in 100 mls @ 200 mls/hr 01/22/24 18:00 01/26/24 17:45 IVPB 200 mls/hr Q24H CARMELA Administration Vancomycin HCl 500 mg in 100 mls @ 100 mls/hr 01/27/24 18:00 Vancomycin 500 Mg/Ns 100 Ml IVPB 01/27/24 18:59 ONCE ONE Insulin Aspart 4 - 8 units 01/10/24 07:55 01/27/24 08:06 Insulin Aspart (*Bkc) 100 Units/Ml SUB-Q Not Given Q4H [facility] Protocol Insulin Glargine 80 units 01/26/24 09:00 Insulin Glargine (*Bkc) 100 Units/Ml SUB-Q Q12H [facility] Labetalol HCl 10 mg 01/18/24 08:37 01/25/24 23:12 Labetalol Hcl Inj 100 Mg/20 Ml Vial IV PUSH 10 mg Q4H PRN Administration Hypertension Metoprolol Tartrate 100 mg 01/16/24 09:00 01/17/24 08:43 Metoprolol Tartrate 50 Mg Tab FEED TUBE 100 mg Q12HR CARMELA Administration Multi-Ingred Cream/Lotion/Oil/Oint 1 applic 01/07/24 21:00 01/27/24 08:22 Mineral Oil/White Petrolatum Ointment EACH EYE 1 applic Q12HR CARMELA Administration Pantoprazole Sodium 40 mg 01/07/24 21:00 01/27/24 08:17 Pantoprazole Sodium Iv 40 Mg Vial IV PUSH 40 mg Q12HR CARMELA Administration Vancomycin HCl 1 each 01/20/24 14:59 Vancomycin For Hemodialysis IVPB PRN PRN Vancomycin Protocol Radiology Results: ITS Impressions Abdomen/Pelvis CT 01/07/24 16:52 IMPRESSION: No acute abdominopelvic process. Specifically, there is no CT evidence of bowel obstruction. No definite evidence of renal injury, noting that low-grade renal injury as can be difficult to detect without contrast. Renal Ultrasound 01/08/24 10:47 IMPRESSION: 1. Normal kidney sizes. No hydronephrosis. Chest/Abdomen/Pelvis CT 01/12/24 15:08 IMPRESSION: Interval enlargement of the liver, when compared with previous examination. Flattening of the inferior vena cava suggesting severe hypovolemia. Interval development of basilar atelectasis and trace bilateral pleural effusions. No additional findings which represents a change from prior examination performed 01/07/2024. Supportive devices are in good position. Redemonstration of multiple stones within the gallbladder which is not distended. Head CT 01/12/24 15:31 IMPRESSION: 1. 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 2. Large distribution of chronic encephalomalacia in the expected distribution of left middle cerebral artery. Abdomen Ultrasound 01/13/24 09:31 IMPRESSION: 1. Cholelithiasis. 2. Normal liver Doppler. Arterial/Peripheral Duplex 01/13/24 09:31 IMPRESSION: 1. Cholelithiasis. 2. Normal liver Doppler. Venous Doppler Study 01/15/24 17:14 IMPRESSION: 1. Deep vein thrombosis involving left common femoral vein. ADDENDUM: 01/15/24 [id number] I called this result to Apurva Mclean. Abdomen X-Ray 01/16/24 06:03 Impression: NG tube in satisfactory position. IVC Filter Placement X-Ray 01/20/24 06:18 IMPRESSION: Fluoroscopy used during IVC filter insertion. Chest X-Ray 01/27/24 06:13 IMPRESSION: 1. No acute cardiopulmonary disease. Labs Labs: Laboratory Results - last 24 hr 01/26/24 01/26/24 01/26/24 11:58 16:03 19:42 WBC RBC Hgb Hct MCV MCH MCHC RDW Plt Count MPV Sodium Potassium Chloride Carbon Dioxide Anion Gap BUN Creatinine Estim Creat Clear Calc Estimated GFR Glucose POC Capillary Glucose 111 H 127 H 112 H Calcium Phosphorus Magnesium Total Bilirubin AST ALT Alkaline Phosphatase Total Protein Albumin Random Vancomycin 01/26/24 01/26/24 01/27/24 20:06 23:59 03:57 WBC RBC Hgb Hct MCV MCH MCHC RDW Plt Count MPV Sodium Potassium Chloride Carbon Dioxide Anion Gap BUN Creatinine Estim Creat Clear Calc Estimated GFR Glucose POC Capillary Glucose 111 H 104 107 H Calcium Phosphorus Magnesium Total Bilirubin AST ALT Alkaline Phosphatase Total Protein Albumin Random Vancomycin 01/27/24 01/27/24 05:43 08:02 WBC 11.9 H RBC 2.63 L Hgb 7.7 L Hct 25.8 L MCV 98.1 MCH 29.3 MCHC 29.8 L RDW 18.7 H Plt Count 382 H MPV 11.0 H Sodium 139 Potassium 3.9 Chloride 103 Carbon Dioxide 26 Anion Gap 10 BUN 53 H Creatinine 2.60 H Estim Creat Clear Calc 23 Estimated GFR 19 L Glucose 120 H POC Capillary Glucose 100 Calcium 8.3 L Phosphorus 4.0 Magnesium 2.3 Total Bilirubin 0.5 AST 38 H ALT 19 Alkaline Phosphatase 97 Total Protein 6.0 L Albumin 2.9 L Random Vancomycin 20.9 H
--- NOTE | 2024-01-27 10:16 | WPDINTPN ---
Progress Note: A&P Assessment and Plan (1) Septic shock: Code(s): A41.9 - Sepsis, unspecified organism; R65.21 - Severe sepsis with septic shock Status: Resolved Assessment and Plan: RESOLVED Patient hypotensive on presentation Patient was given IV fluid bolus followed by maintenance IV fluids -lactic acid has improved -Levophed weaned off -off IV fluids -source appears to be UTI. Urine and blood cultures are negative till now, STATUS POST CEFTRIAXONE -status post stress dose steroids - 01/10 continues to have fever although other markers of infection are improved as normal WBC. 01/10: Repeat blood cultures are negative x2 Clark catheter change 01/11 Minimal respiratory secretions, sputum cultures growing yeast which is likely a colonization Change Rocephin to cefepime and vancomycin 01/14: Patient continues to have low-grade fever but overall fever curve is down. White count is normal. CT scan of chest and pelvis does not show any area suggestive of infection. Clark catheter was changed. Procalcitonin level is also on the lower side. Continue cefepime but will discontinue vancomycin at this time. Cultures are negative till now. -lipase was within normal limits -01/15/2024: lower extremity venous Dopplers: Left common femoral vein DVT -01/14: patient was started on heparin infusion OFF all abx 01/18: Remains febrile, patient has been carl cultured this morning, WBC trending up -chest x-ray is not show any new infiltrates -holding antibiotics for now, if patient continues to spike fevers and WBC count increase tomorrow will add antibiotics 01/18: Blood culture growing Gram-positive cocci in clusters 1/2 bottles 01/18: Urine cultures growing Tatiana albicans 01/18: Sputum cultures growing Yeast 01/19: Patient remained febrile with T-max of 101.3. Patient was started on vancomycin, meropenem and micafungin (01/19) which will be continued. Patient afebrile now. Continue antibiotics (2) Stroke: Code(s): I63.9 - Cerebral infarction, unspecified Status: Acute Assessment and Plan: Patient presented with altered mental status but at that time patient was respiratory failure acute renal failure acidosis and sepsis. CT scan on presentation showed only old stroke and encephalomalacia Since then patient has not woken up despite holding sedation for multiple days and dialysis. 01/[address] was done which showed. 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 These are likely secondary to hypotension Echo did not show any thrombus or ASD Continue aspirin and statin Neurology following EEG 01/12 - This is an abnormal EEG due to presence of moderate diffuse background slowing suggested generalized cephalopathy. No significant change in neurological status (3) Encephalopathy: Code(s): G93.40 - Encephalopathy, unspecified Status: Acute Assessment and Plan: Patient presented with encephalopathy, altered mental status, delirium, confusion -most likely related to uremia, infection, severe acidosis and baseline flow malacia from past stroke TSH and ammonia normal Patient has been off sedation since 01/09/2024. Still not responsive.. Will continue hold sedatives. EEG as above Patient was dialyzed 01/11 to help with drug removal. Minimal improved Encephalopathy likely secondary to strokes. See above. Neurology evaluated the patient Patient has been off sedation since 01/09/2024, has not had any significant improvement in her mental status Ammonia levels are normal 01/11: Repeat CT scan of the brain IMPRESSION: 1. 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 2. Large distribution of chronic encephalomalacia in the expected distribution of left middle cerebral artery. 01/06: CT brain on admission IMPRESSION: 1. No acute intracranial process. 2. 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 3. Additional more diffuse likely age-related mild to moderate diffuse volume loss and mild scattered white matter hypoattenuation consistent with chronic small vessel ischemic disease. (4) Acute respiratory failure: Code(s): J96.00 - Acute respiratory failure, unspecified whether with hypoxia or hypercapnia Status: Acute Assessment and Plan: Patient had an episode of emesis in the ER, given her altered mental status encephalopathy, risk of aspiration with impending respiratory failure patient was intubated on 01/06/2025 -chest x-ray and ABG reviewed -patient was on ASV mode of ventilation but now switch back to CMV due to respiratory rate -sedation is on hold since 01/09/2024 -weaning will depend on improvement in mental status. -family does not desire tracheostomy (5) Acute kidney failure: Code(s): N17.9 - Acute kidney failure, unspecified Status: Acute Assessment and Plan: On chronic kidney injury, unknown cause, CT of the abdomen and pelvis did not show any hydronephrosis or urinary obstruction -significant lactic acidosis and metabolic acidosis -patient has a history of diabetes, hypertension which is likely the cause of chronic kidney disease -patient on lisinopril hydrochlorothiazide and metformin at home -patient was given a total of 3 L IV fluid bolus, 1 L in the ER and 2 L in the ICU -sodium bicarb IV pushes x4 in the ICU -patient was started on sodium bicarb infusion after discussing with Nephrology, which her was discontinued once hemodialysis was started -patient was started on hemodialysis and was dialyzed x 3 days -patient continues to have decent urine output - 01/11 patient was dialyzed again 1 L fluid was removed -continue to monitor urine output, electrolytes and renal function -01/16: worsening creatinine, increased edema, decreased urine output. Discussed with Nephrology, patient will dialyzed - 01/22 patient would not be dialyzed due to issues with the catheter. Both ports were flushing and rowing but patient were having high pressure limiting flow. Will plan to change catheter today and re-attempt dialysis. 01/23 right IJ dialysis catheter was changed over a wire to a new catheter. At the time placement the catheter was were adequately but during dialysis there were cane issues hence dialysis would not be done - 01/24 I tested the right IJ dialysis catheter and it was drawing and flushing on all 3 ports but was inconsistent. This could be secondary to catheter abutting the wall. Patient always laying with head turned towards left unable to straighten her head without significant force. A new dialysis catheter was placed in right femoral vein after cleaning and disinfecting the area. Catheter had to change again over a guidewire due to issues with flow from 1 port. Patient was eventually dialyzed 01/25 patient was dialyzed (6) Diastolic dysfunction: Code(s): I51.89 - Other ill-defined heart diseases Status: Acute Assessment and Plan: Echo 01/11 Summary 1. Left ventricular systolic function is normal, estimated at 60-65%. 2. There is moderately increased left ventricular wall thickness. 3. Intact interatrial septum visualized by agitated saline imaging. 4. There is mild aortic valve calcification. 5. There is mild aortic valve stenosis with a peak velocity of 190 cm/s,mean gradient of 8 mmHg, and aortic valve area of 1.8 cm2. 6. There is mild tricuspid valve regurgitation. 7. Mild pulmonary hypertension, estimated pulmonary arterial systolicpressure is 46 mmHg. (7) Insulin dependent diabetes mellitus: Status: Chronic Assessment and Plan: Continue sliding scale insulin Accu-Cheks Lantus is on hold at this time (8) Right hemiparesis: Code(s): G81.91 - Hemiplegia, unspecified affecting right dominant side Status: Acute Assessment and Plan: History of left-sided cerebral hemisphere and CVA, residual mild aphasia and right-sided weakness (9) Seizures: Code(s): R56.9 - Unspecified convulsions Status: Acute Assessment and Plan: Patient has a history of seizures, on p.o. Keppra 500 mg p.o. q.12 hours Continue Keppra IV 500 mg IV q.24 (discuss with pharmacist) EEG negative for any seizure-like activity (10) Hypertension: Code(s): I10 - Essential (primary) hypertension Status: Acute Assessment and Plan: Continue amlodipine and p.r.n. labetalol (11) Anemia: Code(s): D64.9 - Anemia, unspecified Status: Acute Assessment and Plan: 01/16: Patient has been on heparin infusion for DVT in the left common femoral vein. Dropped hemoglobin this morning to 6.7 from 7.8. heparin infusion Discontinued -stool for Hemoccult was Negative -01/17: IVC filter placement by surgery Transfuse if hemoglobin less than 7 01/24 hemoglobin 6.2 transfuse 1 unit PRBC Hemoglobin stable at this time. Monitor Plan DVT prophylaxis: Hold heparin infusion due to anemia, continue SCDs Stress ulcer prophylaxis: Protonix IV q.12 hours Nutrition: Continue tube feeds Code Status: Patient is DNR at this time with family planning to palliatively extubate and proceed with comfort care only once her sister arrived from [place]. She is anticipated to arrive either on Monday or Monday01/20/2024: Dr. Sinha discussed with sons Hakan and June, Danuta in the conference room this afternoon. I discussed with them at length regarding patient's medical condition and problems from the time she came to the hospital. They are aware that she has had multiple strokes, encephalopathy and not waking up since her sedation has been turned off on 01/09/2024. She is in renal failure requiring intermittent dialysis, has a DVT with IVC filters, anemia. The and the sons stated that they do not want the patient to get tracheostomy or the PEG tube. And they want to make her comfortable but requested if he could wait for 1 week since patient's sister was very close to her will be traveling from [place] to see her. They will keep us posted on her arrival. In the meantime patient remains DNR which was reiterated and acceptable to the and the sons. Bedside RN Anali and home health aide caregiver Ericka were present during the family meeting. 01/25 I spoke to patient's son June by phone and he told me the patient's sister would not be able to get her visa for next 8-10 days and will not be here till then. He states that he, his brother and father all agree that would be unreasonable to continue waiting for her. They are going to discuss among themselves and most likely proceed with palliative extubation and comfort care earlier. He states that he and his family will be coming to the hospital later today to visit the patient and make further decision. I will further discuss with them once they are here and proceed accordingly. 01/26 Later in the evening patient's family arrived at bedside but left without speaking to the hospitalist, me or making any further decisions. I understand that they will be coming in later today. I will again discuss with them regarding further goals of care and further plan. Family has been clear that they do not desire tracheostomy or PEG tube and want to proceed with palliative extubation and comfort care considering her prognosis and current status but they have have been reluctant making final decision regarding proceeding Critical Care Time Spent: 30 minutes Due to a high probability of clinically significant, life threatening deterioration, the patient required my highest level of preparedness to intervene emergently and I personally spent this critical care time directly and personally managing the patient. This critical care time included obtaining a history; examining the patient; pulse oximetry; ordering and review of studies; arranging urgent treatment with development of a management plan; evaluation of patient's response to treatment; frequent reassessment; and discussions with other providers. It was exclusive of separately billable procedures and treating other patients and teaching time. Please see Assessment and Plan section and the rest of the note for further information on patient assessment and treatment This dictation may have been done utilizing a voice recognition system. Attempts have been made to correct errors. However, there may be uncorrected grammatical, spelling, and recognitions errors present. Subjective Date/time seen: 01/27/24 Overnight events reviewed. Low-grade fever Continues to be on mechanical ventilation 21% FiO2 Off all infusions She was dialyzed yesterday Tolerating tube feeds Other Vitals acceptable No change in neurological status Interval history: Reason for consult: Altered mental status, acute respiratory failure, severe metabolic acidosis, multiple strokes, DVT Review of Systems Review of Systems: ROS unobtainable: Yes unobtainable due to endotracheal tube, unobtainable due to medical condition and unobtainable due to mental status Exam Narrative: General: Intubated and sedated HEENT:? Pupils are equal and reactive to light, patient has positive corneal reflex, sclera is clear, ETT in place, facial puffiness noted Neck:? Supple, Respiratory:? Coarse breath sounds bilaterally, decreased at bases no wheezing, adequate air entry Cardiac:? S1-S2 normal, regular rate and rhythm, Abdomen:? Soft, nontender, nondistended, hypoactive bowel sounds, old midline surgical scar noted Extremities:? Dry skin, decreased pedal pulses, right femoral dialysis catheter Neuro:? Patient is intubated, off sedation, PERRL, patient withdraws to pain stimulus in right lower extremities but only intermittently, decerebrate posturing of the upper extremities on pain stimuli. Spontaneous respiratory effort present no other response Skin:? Dry and flaky skin on lower extremities, skin is warm Psych:? Unable to assess at this time Objective Data Vital Signs Vital Signs: Vital Signs - 24 hr 01/26/24 12:18 01/26/24 12:25 01/26/24 10:45 Temperature 37.6 C Pulse Rate 90 86 87 Respiratory Rate 18 Blood Pressure 133/65 121/61 111/59 L Pulse Oximetry 100 Oxygen Delivery Fraction of Inspired Oxygen 01/26/24 10:30 01/26/24 11:00 01/26/24 11:15 Temperature Pulse Rate 86 87 90 Respiratory Rate Blood Pressure 91/58 L 118/61 135/66 Pulse Oximetry Oxygen Delivery Fraction of Inspired Oxygen 01/26/24 11:45 01/26/24 11:30 01/26/24 12:00 Temperature Pulse Rate 94 90 90 Respiratory Rate Blood Pressure 108/69 114/60 112/62 Pulse Oximetry Oxygen Delivery Fraction of Inspired Oxygen 01/26/24 10:49 01/26/24 12:00 01/26/24 12:00 Temperature Pulse Rate 90 90 Respiratory Rate Blood Pressure Pulse Oximetry 100 Oxygen Delivery Mechanical Ventilation Fraction of Inspired Oxygen 21 21 01/26/24 12:00 01/26/24 12:00 01/26/24 13:35 Temperature 37.6 C H Pulse Rate 90 86 Respiratory Rate 17 Blood Pressure 112/62 Pulse Oximetry 100 100 Oxygen Delivery Mechanical Ventilation Mechanical Ventilation Fraction of Inspired Oxygen 21 21 01/26/24 14:00 01/26/24 14:00 01/26/24 16:22 Temperature 37.4 C Pulse Rate 90 90 94 Respiratory Rate 18 Blood Pressure 151/65 H Pulse Oximetry 100 100 Oxygen Delivery Mechanical Ventilation Fraction of Inspired Oxygen 21 01/26/24 16:00 01/26/24 16:00 01/26/24 16:00 Temperature 37.5 C Pulse Rate 89 91 Respiratory Rate 19 Blood Pressure 145/67 H Pulse Oximetry 100 Oxygen Delivery Fraction of Inspired Oxygen 21 01/26/24 16:00 01/26/24 18:00 01/26/24 18:00 Temperature 37.6 C H Pulse Rate 89 89 Respiratory Rate 16 Blood Pressure 148/64 H Pulse Oximetry 100 Oxygen Delivery Mechanical Ventilation Fraction of Inspired Oxygen 21 01/26/24 19:24 01/26/24 20:00 01/26/24 20:00 Temperature 37.9 C H Pulse Rate 90 90 Respiratory Rate 16 Blood Pressure 136/58 L Pulse Oximetry 100 100 Oxygen Delivery Mechanical Ventilation Fraction of Inspired Oxygen 21 21 01/26/24 20:00 01/26/24 20:00 01/26/24 22:00 Temperature Pulse Rate 89 93 Respiratory Rate Blood Pressure Pulse Oximetry Oxygen Delivery Mechanical Ventilation Fraction of Inspired Oxygen 21 01/26/24 22:00 01/27/24 00:10 01/26/24 23:00 Temperature 38.0 C H 37.4 C Pulse Rate 93 92 93 Respiratory Rate 18 18 Blood Pressure 138/62 132/56 L Pulse Oximetry 100 100 100 Oxygen Delivery Mechanical Ventilation Fraction of Inspired Oxygen 21 01/27/24 00:00 01/27/24 00:00 01/27/24 00:00 Temperature Pulse Rate 93 Respiratory Rate Blood Pressure Pulse Oximetry Oxygen Delivery Mechanical Ventilation Fraction of Inspired Oxygen 21 21 01/27/24 02:25 01/27/24 02:34 01/27/24 02:00 Temperature 37.9 C H Pulse Rate 90 95 94 Respiratory Rate 18 Blood Pressure 136/58 L Pulse Oximetry 100 100 Oxygen Delivery Mechanical Ventilation Fraction of Inspired Oxygen 21 01/27/24 04:00 01/27/24 04:00 01/27/24 04:00 Temperature 37.7 C H Pulse Rate 92 91 Respiratory Rate 20 Blood Pressure 140/67 Pulse Oximetry 100 Oxygen Delivery Mechanical Ventilation Fraction of Inspired Oxygen 21 01/27/24 04:00 01/27/24 05:59 01/27/24 06:00 Temperature Pulse Rate 91 88 Respiratory Rate Blood Pressure Pulse Oximetry 100 Oxygen Delivery Mechanical Ventilation Fraction of Inspired Oxygen 21 21 01/27/24 06:00 01/27/24 08:00 01/27/24 08:00 Temperature 37.5 C 37.6 C H Pulse Rate 88 94 Respiratory Rate 17 16 Blood Pressure 136/63 137/63 Pulse Oximetry 100 100 Oxygen Delivery Fraction of Inspired Oxygen 21 01/27/24 08:00 01/27/24 08:00 01/27/24 08:30 Temperature Pulse Rate 94 95 95 Respiratory Rate 18 Blood Pressure Pulse Oximetry 100 100 Oxygen Delivery Mechanical Ventilation Mechanical Ventilation Fraction of Inspired Oxygen 21 21 01/27/24 10:00 01/27/24 10:00 Temperature Pulse Rate 90 90 Respiratory Rate 18 Blood Pressure 134/53 L Pulse Oximetry 100 Oxygen Delivery Fraction of Inspired Oxygen Intake/Output Intake/Output: Intake & Output 01/24/24 01/25/24 01/26/24 01/27/24 23:59 23:59 23:59 23:59 Intake Total 1825 2041 1951 818 Output Total 725 1780 1930 200 Balance 1100 261 21 618 Meds/Results Medications: Active Medications Generic Name Dose Route Start Last Admin Trade Name Freq PRN Reason Stop Dose Admin Acetaminophen 650 mg 01/10/24 08:02 01/20/24 16:00 Acetaminophen 325 Mg Tablet FEED TUBE 650 mg Q6H PRN Administration Mild Pain (1-3) or Fever Alteplase, Recombinant 2 mg 01/23/24 09:15 01/23/24 09:57 Alteplase 2 Mg Vial (Cathflo) IV PUSH 2 mg ONCE PRN Administration Line Occlusion Alteplase, Recombinant 2 mg 01/23/24 09:15 Alteplase 2 Mg Vial (Cathflo) IV PUSH ONCE PRN Line Occlusion Amlodipine Besylate 10 mg 01/22/24 08:50 01/27/24 08:17 Amlodipine Besylate 10 Mg Tablet FEED TUBE 10 mg DAILY CARMELA Administration Aspirin 325 mg 01/12/24 16:00 01/17/24 08:43 Aspirin 325 Mg Tablet FEED TUBE 325 mg DAILY@0800 CARMELA Administration Atorvastatin Calcium 40 mg 01/13/24 09:00 01/27/24 08:17 Atorvastatin 40 Mg Tablet FEED TUBE 40 mg DAILY CARMELA Administration Dextrose 12.5 gm 01/07/24 13:18 01/26/24 08:02 Dextrose 50% 25 Gm/50 Ml Syringe IV PUSH 12.5 gm PRN PRN Administration Hypoglycemia Protocol Epoetin Dane-epbx 10,000 units 01/12/24 09:20 01/26/24 08:16 Epoetin Dane-Epbx 10,000 Units/Ml Vial SUB-Q 10,000 units MOWEFR@09 CARMELA Administration Glucagon 1 mg 01/07/24 13:18 Glucagon For Inj 1 Mg Vial IM PRN PRN Hypoglycemia Protocol Glucose 15 gm 01/07/24 13:18 Glucose Oral Gel 15 Gm Of Glucse In 37.5 Gm Tube PO PRN PRN Hypoglycemia Protocol Hydralazine HCl 10 mg 01/18/24 02:20 01/18/24 05:40 Hydralazine 10 Mg Tablet PO Not Given Q6HR CARMELA Dextrose 1,000 mls @ 100 mls/hr 01/07/24 13:18 Dextrose 5% 1,000 Ml IVPB PRN PRN Hypoglycemia Protocol Albumin Human 50 mls @ 999 mls/hr 01/07/24 17:11 01/26/24 10:38 Albutein IVPB 03/07/24 17:10 50 mls/hr Q10M PRN Administration HYPOTENSION Levetiracetam 500 mg in 100 mls @ 400 mls/hr 01/07/24 21:00 01/26/24 20:24 Keppra Iv IVPB Infused Q24H CARMELA Infusion Micafungin Sodium 100 mg/ 100 mls @ 100 mls/hr 01/20/24 16:00 01/26/24 16:31 Sodium Chloride IVPB Infused Q24H CARMELA Infusion Meropenem 500 mg in 100 mls @ 200 mls/hr 01/22/24 18:00 01/26/24 17:45 IVPB 200 mls/hr Q24H CARMELA Administration Vancomycin HCl 500 mg in 100 mls @ 100 mls/hr 01/27/24 18:00 Vancomycin 500 Mg/Ns 100 Ml IVPB 01/27/24 18:59 ONCE ONE Insulin Aspart 4 - 8 units 01/10/24 07:55 01/27/24 08:06 Insulin Aspart (*Bkc) 100 Units/Ml SUB-Q Not Given Q4H [facility] Protocol Insulin Glargine 80 units 01/26/24 09:00 Insulin Glargine (*Bkc) 100 Units/Ml SUB-Q Q12H [facility] Labetalol HCl 10 mg 01/18/24 08:37 01/25/24 23:12 Labetalol Hcl Inj 100 Mg/20 Ml Vial IV PUSH 10 mg Q4H PRN Administration Hypertension Metoprolol Tartrate 100 mg 01/16/24 09:00 01/17/24 08:43 Metoprolol Tartrate 50 Mg Tab FEED TUBE 100 mg Q12HR CARMELA Administration Multi-Ingred Cream/Lotion/Oil/Oint 1 applic 01/07/24 21:00 01/27/24 08:22 Mineral Oil/White Petrolatum Ointment EACH EYE 1 applic Q12HR CARMELA Administration Pantoprazole Sodium 40 mg 01/07/24 21:00 01/27/24 08:17 Pantoprazole Sodium Iv 40 Mg Vial IV PUSH 40 mg Q12HR CARMELA Administration Vancomycin HCl 1 each 01/20/24 14:59 Vancomycin For Hemodialysis IVPB PRN PRN Vancomycin Protocol Radiology Results: ITS Impressions Abdomen/Pelvis CT 01/07/24 16:52 IMPRESSION: No acute abdominopelvic process. Specifically, there is no CT evidence of bowel obstruction. No definite evidence of renal injury, noting that low-grade renal injury as can be difficult to detect without contrast. Renal Ultrasound 01/08/24 10:47 IMPRESSION: 1. Normal kidney sizes. No hydronephrosis. Chest/Abdomen/Pelvis CT 01/12/24 15:08 IMPRESSION: Interval enlargement of the liver, when compared with previous examination. Flattening of the inferior vena cava suggesting severe hypovolemia. Interval development of basilar atelectasis and trace bilateral pleural effusions. No additional findings which represents a change from prior examination performed 01/07/2024. Supportive devices are in good position. Redemonstration of multiple stones within the gallbladder which is not distended. Head CT 01/12/24 15:31 IMPRESSION: 1. 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 2. Large distribution of chronic encephalomalacia in the expected distribution of left middle cerebral artery. Abdomen Ultrasound 01/13/24 09:31 IMPRESSION: 1. Cholelithiasis. 2. Normal liver Doppler. Arterial/Peripheral Duplex 01/13/24 09:31 IMPRESSION: 1. Cholelithiasis. 2. Normal liver Doppler. Venous Doppler Study 01/15/24 17:14 IMPRESSION: 1. Deep vein thrombosis involving left common femoral vein. ADDENDUM: 01/15/24 [id number] I called this result to Apurva Mclean. Abdomen X-Ray 01/16/24 06:03 Impression: NG tube in satisfactory position. IVC Filter Placement X-Ray 01/20/24 06:18 IMPRESSION: Fluoroscopy used during IVC filter insertion. Chest X-Ray 01/27/24 06:13 IMPRESSION: 1. No acute cardiopulmonary disease. Labs Labs: Laboratory Results - last 24 hr 01/26/24 01/26/24 01/26/24 11:58 16:03 19:42 WBC RBC Hgb Hct MCV MCH MCHC RDW Plt Count MPV Sodium Potassium Chloride Carbon Dioxide Anion Gap BUN Creatinine Estim Creat Clear Calc Estimated GFR Glucose POC Capillary Glucose 111 H 127 H 112 H Calcium Phosphorus Magnesium Total Bilirubin AST ALT Alkaline Phosphatase Total Protein Albumin Random Vancomycin 01/26/24 01/26/24 01/27/24 20:06 23:59 03:57 WBC RBC Hgb Hct MCV MCH MCHC RDW Plt Count MPV Sodium Potassium Chloride Carbon Dioxide Anion Gap BUN Creatinine Estim Creat Clear Calc Estimated GFR Glucose POC Capillary Glucose 111 H 104 107 H Calcium Phosphorus Magnesium Total Bilirubin AST ALT Alkaline Phosphatase Total Protein Albumin Random Vancomycin 01/27/24 01/27/24 05:43 08:02 WBC 11.9 H RBC 2.63 L Hgb 7.7 L Hct 25.8 L MCV 98.1 MCH 29.3 MCHC 29.8 L RDW 18.7 H Plt Count 382 H MPV 11.0 H Sodium 139 Potassium 3.9 Chloride 103 Carbon Dioxide 26 Anion Gap 10 BUN 53 H Creatinine 2.60 H Estim Creat Clear Calc 23 Estimated GFR 19 L Glucose 120 H POC Capillary Glucose 100 Calcium 8.3 L Phosphorus 4.0 Magnesium 2.3 Total Bilirubin 0.5 AST 38 H ALT 19 Alkaline Phosphatase 97 Total Protein 6.0 L Albumin 2.9 L Random Vancomycin 20.9 H Quality VTE Prophylaxis VTE prophylaxis: mechanical ordered and pharmacologic ordered
--- NOTE | 2024-01-27 11:56 | P.PNCROSS_ITS ---
Event Note Event Note Event Note: I met with patient's 2 sons and at bedside. I updated them with doug kelley's current status including lack of neurological improvement, multiple strokes, respiratory failure, renal failure and ongoing infection and sepsis. We again discussed prognosis and goals of care. Considering her lack of improvement and poor prognosis, They feel that they are ready to proceed with palliative extubation and comfort care. They do not believe the patient would want to continue like this. I have explained them that I will use opioids, anxiolytics and other agents on as needed basis to promote comfort and discontinue all medical therapy, lab testing and invasive monitoring. Patient will eventually . I answered all their questions. They have verbalized understanding and agreed to proceed. Meeting happen in presence of patient's nurse Claritza I have requested nurse to notify the hospitalist.
[2024-01-27] MEDS: MORPHINE SULFATE INJ (*CRX) 10 MG/ML AMP 5 MG IV PUSH (12:04)
[2024-01-27] MEDS: LORazepam INJ (*CRX) 2 MG/ML VIAL IV PUSH ×2 (12:05→18:51)
--- NOTE | 2024-01-27 12:46 | P.PNIM_ITS ---
Progress Note: A&P Assessment and Plan (1) Septic shock: Code(s): A41.9 - Sepsis, unspecified organism; R65.21 - Severe sepsis with septic shock Status: Resolved Assessment and Plan: RESOLVED Patient hypotensive on presentation Patient was given IV fluid bolus followed by maintenance IV fluids -lactic acid has improved -Levophed weaned off -off IV fluids -source appears to be UTI. Urine and blood cultures are negative till now, STATUS POST CEFTRIAXONE -status post stress dose steroids - 01/10 continues to have fever although other markers of infection are improved as normal WBC. 01/10: Repeat blood cultures are negative x2 Clark catheter change 01/11 Minimal respiratory secretions, sputum cultures growing yeast which is likely a colonization Change Rocephin to cefepime and vancomycin 01/14: Patient continues to have low-grade fever but overall fever curve is down. White count is normal. CT scan of chest and pelvis does not show any area suggestive of infection. Clark catheter was changed. Procalcitonin level is also on the lower side. Continue cefepime but will discontinue vancomycin at this time. Cultures are negative till now. -lipase was within normal limits -01/15/2024: lower extremity venous Dopplers: Left common femoral vein DVT -01/14: patient was started on heparin infusion OFF all abx 01/18: Remains febrile, patient has been carl cultured this morning, WBC trending up -chest x-ray is not show any new infiltrates -holding antibiotics for now, if patient continues to spike fevers and WBC count increase tomorrow will add antibiotics 01/18: Blood culture growing Gram-positive cocci in clusters 1/2 bottles 01/18: Urine cultures growing Tatiana albicans 01/18: Sputum cultures growing Yeast 01/19: Patient remained febrile with T-max of 101.3. Patient was started on vancomycin, meropenem and micafungin (01/19) which will be continued. Patient afebrile now. 01/26 Comfort care (2) Stroke: Code(s): I63.9 - Cerebral infarction, unspecified Status: Acute Assessment and Plan: Patient presented with altered mental status but at that time patient was respiratory failure acute renal failure acidosis and sepsis. CT scan on presentation showed only old stroke and encephalomalacia Since then patient has not woken up despite holding sedation for multiple days and dialysis. 10/[address] was done which showed. 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 These are likely secondary to hypotension Echo did not show any thrombus or ASD Continue aspirin and statin Neurology following EEG 01/12 - This is an abnormal EEG due to presence of moderate diffuse background slowing suggested generalized cephalopathy. No significant change in neurological status (3) Encephalopathy: Code(s): G93.40 - Encephalopathy, unspecified Status: Acute Assessment and Plan: Patient presented with encephalopathy, altered mental status, delirium, confusion -most likely related to uremia, infection, severe acidosis and baseline flow malacia from past stroke TSH and ammonia normal Patient has been off sedation since 01/09/2024. Still not responsive.. Will continue hold sedatives. EEG as above Patient was dialyzed 01/11 to help with drug removal. Minimal improved Encephalopathy likely secondary to strokes. See above. Neurology evaluated the patient Patient has been off sedation since 01/09/2024, has not had any significant improvement in her mental status Ammonia levels are normal 01/11: Repeat CT scan of the brain IMPRESSION: 1. 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 2. Large distribution of chronic encephalomalacia in the expected distribution of left middle cerebral artery. 01/06: CT brain on admission IMPRESSION: 1. No acute intracranial process. 2. 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 3. Additional more diffuse likely age-related mild to moderate diffuse volume loss and mild scattered white matter hypoattenuation consistent with chronic small vessel ischemic disease. (4) Acute respiratory failure: Code(s): J96.00 - Acute respiratory failure, unspecified whether with hypoxia or h ypercapnia Status: Acute Assessment and Plan: Patient had an episode of emesis in the ER, given her altered mental status encephalopathy, risk of aspiration with impending respiratory failure patient was intubated on 01/06/2025 -chest x-ray and ABG reviewed -patient was on ASV mode of ventilation but now switch back to CMV due to respiratory rate -sedation is on hold since 01/09/2024 -01/26 ventilator discontinued due to comfort care only (5) Acute kidney failure: Code(s): N17.9 - Acute kidney failure, unspecified Status: Acute Assessment and Plan: On chronic kidney injury, unknown cause, CT of the abdomen and pelvis did not show any hydronephrosis or urinary obstruction -significant lactic acidosis and metabolic acidosis -patient has a history of diabetes, hypertension which is likely the cause of chronic kidney disease -patient on lisinopril hydrochlorothiazide and metformin at home -patient was given a total of 3 L IV fluid bolus, 1 L in the ER and 2 L in the ICU -sodium bicarb IV pushes x4 in the ICU -patient was started on sodium bicarb infusion after discussing with Nephrology, which her was discontinued once hemodialysis was started -patient was started on hemodialysis and was dialyzed x 3 days -patient continues to have decent urine output - 01/11 patient was dialyzed again 1 L fluid was removed -continue to monitor urine output, electrolytes and renal function -01/16: worsening creatinine, increased edema, decreased urine output. Discussed with Nephrology, patient will dialyzed - 01/22 patient would not be dialyzed due to issues with the catheter. Both ports were flushing and rowing but patient were having high pressure limiting flow. Will plan to change catheter today and re-attempt dialysis. 01/23 right IJ dialysis catheter was changed over a wire to a new catheter. At the time placement the catheter was were adequately but during dialysis there were cane issues hence dialysis would not be done - 01/24 I tested the right IJ dialysis catheter and it was drawing and flushing on all 3 ports but was inconsistent. This could be secondary to catheter abutting the wall. Patient always laying with head turned towards left unable to straighten her head without significant force. A new dialysis catheter was placed in right femoral vein after cleaning and disinfecting the area. Catheter had to change again over a guidewire due to issues with flow from 1 port. Patient was eventually dialyzed 01/25 patient was dialyzed 01/26 comfort care only (6) Diastolic dysfunction: Code(s): I51.89 - Other ill-defined heart diseases Status: Acute Assessment and Plan: Echo 01/11 Summary 1. Left ventricular systolic function is normal, estimated at 60-65%. 2. There is moderately increased left ventricular wall thickness. 3. Intact interatrial septum visualized by agitated saline imaging. 4. There is mild aortic valve calcification. 5. There is mild aortic valve stenosis with a peak velocity of 190 cm/s,mean gradient of 8 mmHg, and aortic valve area of 1.8 cm2. 6. There is mild tricuspid valve regurgitation. 7. Mild pulmonary hypertension, estimated pulmonary arterial systolicpressure is 46 mmHg. (7) Insulin dependent diabetes mellitus: Status: Chronic Assessment and Plan: Insulin on hold 01/26 comfort care only (8) Right hemiparesis: Code(s): G81.91 - Hemiplegia, unspecified affecting right dominant side Status: Acute Assessment and Plan: History of left-sided cerebral hemisphere and CVA, residual mild aphasia and right-sided weakness (9) Seizures: Code(s): R56.9 - Unspecified convulsions Status: Acute Assessment and Plan: Patient has a history of seizures, on p.o. Keppra 500 mg p.o. q.12 hours Continue Keppra IV 500 mg IV q.24 EEG negative for any seizure-like activity (10) Hypertension: Code(s): I10 - Essential (primary) hypertension Status: Acute Assessment and Plan: 01/26 comfort care only (11) Anemia: Code(s): D64.9 - Anemia, unspecified Status: Acute Assessment and Plan: 01/16: Patient has been on heparin infusion for DVT in the left common femoral vein. Dropped hemoglobin this morning to 6.7 from 7.8. heparin infusion Discontinued -stool for Hemoccult was Negative -01/17: IVC filter placement by surgery Transfuse if hemoglobin less than 7 01/24 hemoglobin 6.2 transfuse 1 unit PRBC Hemoglobin stable at this time. Subjective Date/time seen: 01/27/24 12:46 Interval history: Off sedation since 01/18. Family opted for comfort care today. Review of Systems Review of Systems: ROS unobtainable: Yes unobtainable due to medical condition Exam Narrative: Elderly female lying in hospital bed is unresponsive to verbal or tactile stimuli and has snoring respirations. Neck without JVD Chest with coarse breath sounds Heart normal S1-S2 with regular rate and no audible murmur Abdomen bowel sounds hypoactive soft no palpable mass no obvious tenderness Extremities no pitting edema Musculoskeletal no gross deformity Neurologic cranial nerves asymmetric, no response to verbal or tactile stimuli Objective Data Vital Signs Vital Signs: Vital Signs - 24 hr 01/26/24 13:35 01/26/24 14:00 01/26/24 14:00 Temperature 99.3 F Pulse Rate 86 90 90 Respiratory Rate 18 Blood Pressure 151/65 H Pulse Oximetry 100 100 Oxygen Delivery Mechanical Ventilation Fraction of Inspired Oxygen 21 01/26/24 16:22 01/26/24 16:00 01/26/24 16:00 Temperature Pulse Rate 94 89 Respiratory Rate Blood Pressure Pulse Oximetry 100 Oxygen Delivery Mechanical Ventilation Fraction of Inspired Oxygen 21 21 01/26/24 16:00 01/26/24 16:00 01/26/24 18:00 Temperature 99.5 F Pulse Rate 91 89 Respiratory Rate 19 Blood Pressure 145/67 H Pulse Oximetry 100 Oxygen Delivery Mechanical Ventilation Fraction of Inspired Oxygen 21 01/26/24 18:00 01/26/24 19:24 01/26/24 20:00 Temperature 99.7 F H 100.2 F H Pulse Rate 89 90 90 Respiratory Rate 16 16 Blood Pressure 148/64 H 136/58 L Pulse Oximetry 100 100 100 Oxygen Delivery Mechanical Ventilation Fraction of Inspired Oxygen 21 01/26/24 20:00 01/26/24 20:00 01/26/24 20:00 Temperature Pulse Rate 89 Respiratory Rate Blood Pressure Pulse Oximetry Oxygen Delivery Mechanical Ventilation Fraction of Inspired Oxygen 21 21 01/26/24 22:00 01/26/24 22:00 01/27/24 00:10 Temperature 100.4 F H 99.3 F Pulse Rate 93 93 92 Respiratory Rate 18 18 Blood Pressure 138/62 132/56 L Pulse Oximetry 100 100 Oxygen Delivery Fraction of Inspired Oxygen 01/26/24 23:00 01/27/24 00:00 01/27/24 00:00 Temperature Pulse Rate 93 Respiratory Rate Blood Pressure Pulse Oximetry 100 Oxygen Delivery Mechanical Ventilation Mechanical Ventilation Fraction of Inspired Oxygen 21 21 21 01/27/24 00:00 01/27/24 02:25 01/27/24 02:34 Temperature 100.2 F H Pulse Rate 93 90 95 Respiratory Rate 18 Blood Pressure 136/58 L Pulse Oximetry 100 100 Oxygen Delivery Mechanical Ventilation Fraction of Inspired Oxygen 21 01/27/24 02:00 01/27/24 04:00 01/27/24 04:00 Temperature 100 F H Pulse Rate 94 92 91 Respiratory Rate 20 Blood Pressure 140/67 Pulse Oximetry 100 Oxygen Delivery Fraction of Inspired Oxygen 01/27/24 04:00 01/27/24 04:00 01/27/24 05:59 Temperature Pulse Rate 91 Respiratory Rate Blood Pressure Pulse Oximetry 100 Oxygen Delivery Mechanical Ventilation Mechanical Ventilation Fraction of Inspired Oxygen 21 21 21 01/27/24 06:00 01/27/24 06:00 01/27/24 08:00 Temperature 99.5 F 99.7 F H Pulse Rate 88 88 94 Respiratory Rate 17 16 Blood Pressure 136/63 137/63 Pulse Oximetry 100 100 Oxygen Delivery Fraction of Inspired Oxygen 01/27/24 08:00 01/27/24 08:00 01/27/24 08:00 Temperature Pulse Rate 94 95 Respiratory Rate 18 Blood Pressure Pulse Oximetry 100 Oxygen Delivery Mechanical Ventilation Fraction of Inspired Oxygen 21 21 01/27/24 08:30 01/27/24 10:00 01/27/24 10:00 Temperature Pulse Rate 95 90 90 Respiratory Rate 18 Blood Pressure 134/53 L Pulse Oximetry 100 100 Oxygen Delivery Mechanical Ventilation Fraction of Inspired Oxygen 21 01/27/24 11:35 01/27/24 11:42 01/27/24 12:09 Temperature 99.7 F H Pulse Rate 90 91 98 Respiratory Rate 18 30 H Blood Pressure 112/54 L Pulse Oximetry 100 100 92 Oxygen Delivery Mechanical Ventilation Mechanical Ventilation Fraction of Inspired Oxygen 21 21 01/27/24 12:11 Temperature Pulse Rate 96 Respiratory Rate 22 H Blood Pressure Pulse Oximetry 95 Oxygen Delivery Room Air Fraction of Inspired Oxygen Intake/Output Intake/Output: Intake & Output 01/24/24 01/25/24 01/26/24 01/27/24 23:59 23:59 23:59 23:59 Intake Total 1825 2041 1951 818 Output Total 725 1780 1930 200 Balance 1100 261 21 618 Meds/Results Medications: Active Medications Generic Name Dose Route Start Last Admin Trade Name Freq PRN Reason Stop Dose Admin Atropine Sulfate 1 - 2 drop 01/27/24 11:53 Atropine Sulfate 1% Ophth Soln 5 Ml Bottle SUBLINGUAL Q4H PRN Secretions Lorazepam 2 mg 01/27/24 11:53 Lorazepam Inj (*Crx) 2 Mg/Ml Vial IV PUSH Q1H PRN Anxiety/Comfort Morphine Sulfate 4 mg 01/27/24 11:53 Morphine Sulfate (*Crx) 4 Mg/Ml Inj IV PUSH Q30M PRN COMFORT Multi-Ingred Cream/Lotion/Oil/Oint 1 applic 01/07/24 21:00 01/27/24 08:22 Mineral Oil/White Petrolatum Ointment EACH EYE 1 applic Q12HR CARMELA Administration Radiology Results: ITS Impressions Abdomen/Pelvis CT 01/07/24 16:52 IMPRESSION: No acute abdominopelvic process. Specifically, there is no CT evidence of bowel obstruction. No definite evidence of renal injury, noting that low-grade renal injury as can be difficult to detect without contrast. Renal Ultrasound 01/08/24 10:47 IMPRESSION: 1. Normal kidney sizes. No hydronephrosis. Chest/Abdomen/Pelvis CT 01/12/24 15:08 IMPRESSION: Interval enlargement of the liver, when compared with previous examination. Flattening of the inferior vena cava suggesting severe hypovolemia. Interval development of basilar atelectasis and trace bilateral pleural effusions. No additional findings which represents a change from prior examination performed 01/07/2024. Supportive devices are in good position. Redemonstration of multiple stones within the gallbladder which is not distended. Head CT 01/12/24 15:31 IMPRESSION: 1. 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 2. Large distribution of chronic encephalomalacia in the expected distribution of left middle cerebral artery. Abdomen Ultrasound 01/13/24 09:31 IMPRESSION: 1. Cholelithiasis. 2. Normal liver Doppler. Arterial/Peripheral Duplex 01/13/24 09:31 IMPRESSION: 1. Cholelithiasis. 2. Normal liver Doppler. Venous Doppler Study 01/15/24 17:14 IMPRESSION: 1. Deep vein thrombosis involving left common femoral vein. ADDENDUM: 01/15/24 [id number] I called this result to Apurva Mclean. Abdomen X-Ray 01/16/24 06:03 Impression: NG tube in satisfactory position. IVC Filter Placement X-Ray 01/20/24 06:18 IMPRESSION: Fluoroscopy used during IVC filter insertion. Chest X-Ray 01/27/24 06:13 IMPRESSION: 1. No acute cardiopulmonary disease. Labs Labs: Laboratory Results - last 24 hr 01/26/24 01/26/24 01/26/24 16:03 19:42 20:06 WBC RBC Hgb Hct MCV MCH MCHC RDW Plt Count MPV Sodium Potassium Chloride Carbon Dioxide Anion Gap BUN Creatinine Estim Creat Clear Calc Estimated GFR Glucose POC Capillary Glucose 127 H 112 H 111 H Calcium Phosphorus Magnesium Total Bilirubin AST ALT Alkaline Phosphatase Total Protein Albumin Random Vancomycin 01/26/24 01/27/24 01/27/24 23:59 03:57 05:43 WBC 11.9 H RBC 2.63 L Hgb 7.7 L Hct 25.8 L MCV 98.1 MCH 29.3 MCHC 29.8 L RDW 18.7 H Plt Count 382 H MPV 11.0 H Sodium 139 Potassium 3.9 Chloride 103 Carbon Dioxide 26 Anion Gap 10 BUN 53 H Creatinine 2.60 H Estim Creat Clear Calc 23 Estimated GFR 19 L Glucose 120 H POC Capillary Glucose 104 107 H Calcium 8.3 L Phosphorus 4.0 Magnesium 2.3 Total Bilirubin 0.5 AST 38 H ALT 19 Alkaline Phosphatase 97 Total Protein 6.0 L Albumin 2.9 L Random Vancomycin 20.9 H 01/27/24 08:02 WBC RBC Hgb Hct MCV MCH MCHC RDW Plt Count MPV Sodium Potassium Chloride Carbon Dioxide Anion Gap BUN Creatinine Estim Creat Clear Calc Estimated GFR Glucose POC Capillary Glucose 100 Calcium Phosphorus Magnesium Total Bilirubin AST ALT Alkaline Phosphatase Total Protein Albumin Random Vancomycin
--- NOTE | 2024-01-27 14:55 | PC.NURSE ---
patient transferred to [facility] at 1440, report given to Amaris DUPREE
[2024-01-28 00:38] VITALS: RESP 22
--- NOTE | 2024-01-28 08:52 | PM.EVENT ---
Event Note Event Note Event Note: Patient is on comfort care. Renal will sign off.
[2024-01-28 09:20] VITALS: PULSE 96; O2SAT 96
[2024-01-28] MEDS: ATROPINE SULFATE 1% OPHTH SOLN 5 ML BOTTLE SUBLINGUAL ×2 (09:23→19:29)
[2024-01-28] MEDS: MINERAL OIL/WHITE PETROLATUM OINTMENT 1 APPLIC EACH EYE ×2 (09:24→19:37)
--- NOTE | 2024-01-28 10:53 | PM.IMPN ---
Progress Note: A&P Assessment and Plan (1) Septic shock: Code(s): A41.9 - Sepsis, unspecified organism; R65.21 - Severe sepsis with septic shock Status: Resolved Assessment and Plan: RESOLVED Patient hypotensive on presentation Patient was given IV fluid bolus followed by maintenance IV fluids -lactic acid has improved -Levophed weaned off -off IV fluids -source appears to be UTI. Urine and blood cultures are negative till now, STATUS POST CEFTRIAXONE -status post stress dose steroids - 01/10 continues to have fever although other markers of infection are improved as normal WBC. 01/10: Repeat blood cultures are negative x2 Clark catheter change 01/11 Minimal respiratory secretions, sputum cultures growing yeast which is likely a colonization Change Rocephin to cefepime and vancomycin 01/14: Patient continues to have low-grade fever but overall fever curve is down. White count is normal. CT scan of chest and pelvis does not show any area suggestive of infection. Clark catheter was changed. Procalcitonin level is also on the lower side. Continue cefepime but will discontinue vancomycin at this time. Cultures are negative till now. -lipase was within normal limits -01/15/2024: lower extremity venous Dopplers: Left common femoral vein DVT -01/14: patient was started on heparin infusion OFF all abx 01/18: Remains febrile, patient has been carl cultured this morning, WBC trending up -chest x-ray is not show any new infiltrates -holding antibiotics for now, if patient continues to spike fevers and WBC count increase tomorrow will add antibiotics 01/18: Blood culture growing Gram-positive cocci in clusters 1/2 bottles 01/18: Urine cultures growing Tatiana albicans 01/18: Sputum cultures growing Yeast 01/19: Patient remained febrile with T-max of 101.3. Patient was started on vancomycin, meropenem and micafungin (01/19) which will be continued. Patient afebrile now. 01/26 Comfort care 01/27 Considering transition to hospice care (2) Stroke: Code(s): I63.9 - Cerebral infarction, unspecified Status: Acute Assessment and Plan: Patient presented with altered mental status but at that time patient was respiratory failure acute renal failure acidosis and sepsis. CT scan on presentation showed only old stroke and encephalomalacia Since then patient has not woken up despite holding sedation for multiple days and dialysis. 01/[address] was done which showed. 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 These are likely secondary to hypotension Echo did not show any thrombus or ASD Continue aspirin and statin Neurology following EEG 01/12 - This is an abnormal EEG due to presence of moderate diffuse background slowing suggested generalized cephalopathy. No significant change in neurological status (3) Encephalopathy: Code(s): G93.40 - Encephalopathy, unspecified Status: Acute Assessment and Plan: Patient presented with encephalopathy, altered mental status, delirium, confusion -most likely related to uremia, infection, severe acidosis and baseline flow malacia from past stroke TSH and ammonia normal Patient has been off sedation since 01/09/2024. Still not responsive.. Will continue hold sedatives. EEG as above Patient was dialyzed 01/11 to help with drug removal. Minimal improved Encephalopathy likely secondary to strokes. See above. Neurology evaluated the patient Patient has been off sedation since 01/09/2024, has not had any significant improvement in her mental status Ammonia levels are normal 01/11: Repeat CT scan of the brain IMPRESSION: 1. 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 2. Large distribution of chronic encephalomalacia in the expected distribution of left middle cerebral artery. 01/06: CT brain on admission IMPRESSION: 1. No acute intracranial process. 2. 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 3. Additional more diffuse likely age-related mild to moderate diffuse volume loss and mild scattered white matter hypoattenuation consistent with chronic small vessel ischemic disease. (4) Acute respiratory failure: Code(s): J96.00 - Acute respiratory failure, unspecified whether with hypoxia or hypercapnia Status: Acute Assessment and Plan: Patient had an episode of emesis in the ER, given her altered mental status encephalopathy, risk of aspiration with impending respiratory failure patient was intubated on 01/06/2025 -chest x-ray and ABG reviewed -patient was on ASV mode of ventilation but now switch back to CMV due to respiratory rate -sedation is on hold since 01/09/2024 -01/26 ventilator discontinued due to comfort care only (5) Acute kidney failure: Code(s): N17.9 - Acute kidney failure, unspecified Status: Acute Assessment and Plan: On chronic kidney injury, unknown cause, CT of the abdomen and pelvis did not show any hydronephrosis or urinary obstruction -significant lactic acidosis and metabolic acidosis -patient has a history of diabetes, hypertension which is likely the cause of chronic kidney disease -patient on lisinopril hydrochlorothiazide and metformin at home -patient was given a total of 3 L IV fluid bolus, 1 L in the ER and 2 L in the ICU -sodium bicarb IV pushes x4 in the ICU -patient was started on sodium bicarb infusion after discussing with Nephrology, which her was discontinued once hemodialysis was started -patient was started on hemodialysis and was dialyzed x 3 days -patient continues to have decent urine output - 01/11 patient was dialyzed again 1 L fluid was removed -continue to monitor urine output, electrolytes and renal function -01/16: worsening creatinine, increased edema, decreased urine output. Discussed with Nephrology, patient will dialyzed - 01/22 patient would not be dialyzed due to issues with the catheter. Both ports were flushing and rowing but patient were having high pressure limiting flow. Will plan to change catheter today and re-attempt dialysis. 01/23 right IJ dialysis catheter was changed over a wire to a new catheter. At the time placement the catheter was were adequately but during dialysis there were cane issues hence dialysis would not be done - 01/24 I tested the right IJ dialysis catheter and it was drawing and flushing on all 3 ports but was inconsistent. This could be secondary to catheter abutting the wall. Patient always laying with head turned towards left unable to straighten her head without significant force. A new dialysis catheter was placed in right femoral vein after cleaning and disinfecting the area. Catheter had to change again over a guidewire due to issues with flow from 1 port. Patient was eventually dialyzed 01/25 patient was dialyzed 01/26 comfort care only (6) Diastolic dysfunction: Code(s): I51.89 - Other ill-defined heart diseases Status: Acute Assessment and Plan: Echo 01/11 Summary 1. Left ventricular systolic function is normal, estimated at 60-65%. 2. There is moderately increased left ventricular wall thickness. 3. Intact interatrial septum visualized by agitated saline imaging. 4. There is mild aortic valve calcification. 5. There is mild aortic valve stenosis with a peak velocity of 190 cm/s,mean gradient of 8 mmHg, and aortic valve area of 1.8 cm2. 6. There is mild tricuspid valve regurgitation. 7. Mild pulmonary hypertension, estimated pulmonary arterial systolicpressure is 46 mmHg. (7) Insulin dependent diabetes mellitus: Status: Chronic Assessment and Plan: Insulin on hold 01/26 comfort care only (8) Right hemiparesis: Code(s): G81.91 - Hemiplegia, unspecified affecting right dominant side Status: Acute Assessment and Plan: History of left-sided cerebral hemisphere and CVA, residual mild aphasia and right-sided weakness (9) Seizures: Code(s): R56.9 - Unspecified convulsions Status: Acute Assessment and Plan: Patient has a history of seizures, on p.o. Keppra 500 mg p.o. q.12 hours Continue Keppra IV 500 mg IV q.24 EEG negative for any seizure-like activity (10) Hypertension: Code(s): I10 - Essential (primary) hypertension Status: Acute Assessment and Plan: 01/26 comfort care only (11) Anemia: Code(s): D64.9 - Anemia, unspecified Status: Acute Assessment and Plan: 01/16: Patient has been on heparin infusion for DVT in the left common femoral vein. Dropped hemoglobin this morning to 6.7 from 7.8. heparin infusion Discontinued -stool for Hemoccult was Negative -01/17: IVC filter placement by surgery Transfuse if hemoglobin less than 7 01/24 hemoglobin 6.2 transfuse 1 unit PRBC Hemoglobin stable at this time. Subjective Date/time seen: 01/28/24 10:53 Interval history: Family opted for comfort care 01/26. Consideration for hospice care 01/27. Review of Systems Review of Systems: ROS unobtainable: Yes unobtainable due to medical condition Exam Narrative: Elderly female lying in hospital bed is unresponsive to verbal or tactile stimuli and has snoring respirations. Neck without JVD Chest with coarse breath sounds Heart normal S1-S2 with regular rate and no audible murmur Abdomen bowel sounds hypoactive soft no palpable mass no obvious tenderness Extremities no pitting edema Musculoskeletal no gross deformity Neurologic cranial nerves asymmetric, no response to verbal or tactile stimuli Objective Data Vital Signs Vital Signs: Vital Signs - 24 hr 01/27/24 11:35 01/27/24 11:42 01/27/24 12:09 Temperature 99.7 F H Pulse Rate 90 91 98 Respiratory Rate 18 30 H Blood Pressure 112/54 L Pulse Oximetry 100 100 92 Oxygen Delivery Mechanical Ventilation Mechanical Ventilation Fraction of Inspired Oxygen 21 21 01/27/24 12:11 01/27/24 14:51 01/27/24 20:00 Temperature 98.6 F Pulse Rate 96 88 Respiratory Rate 22 H 24 H Blood Pressure 97/49 L Pulse Oximetry 95 99 Oxygen Delivery Room Air Room Air Fraction of Inspired Oxygen 01/27/24 20:32 01/28/24 00:38 Temperature Pulse Rate Respiratory Rate 21 H 22 H Blood Pressure Pulse Oximetry Oxygen Delivery Fraction of Inspired Oxygen Intake/Output Intake/Output: Intake & Output 01/25/24 01/26/24 01/27/24 01/28/24 23:59 23:59 23:59 23:59 Intake Total 2041 2051 818 0 Output Total 1780 1930 450 300 Balance 261 121 368 -300 Meds/Results Medications: Active Medications Generic Name Dose Route Start Last Admin Trade Name Freq PRN Reason Stop Dose Admin Atropine Sulfate 1 - 2 drop 01/27/24 11:53 01/28/24 09:23 Atropine Sulfate 1% Ophth Soln 5 Ml Bottle SUBLINGUAL 1 drop Q4H PRN Administration Secretions Lorazepam 2 mg 01/27/24 11:53 01/27/24 18:51 Lorazepam Inj (*Crx) 2 Mg/Ml Vial IV PUSH 2 mg Q1H PRN Administration Anxiety/Comfort Morphine Sulfate 4 mg 01/27/24 11:53 Morphine Sulfate (*Crx) 4 Mg/Ml Inj IV PUSH Q30M PRN COMFORT Multi-Ingred Cream/Lotion/Oil/Oint 1 applic 01/07/24 21:00 01/28/24 09:24 Mineral Oil/White Petrolatum Ointment EACH EYE 1 applic Q12HR CARMELA Administration Radiology Results: ITS Impressions Abdomen/Pelvis CT 01/07/24 16:52 IMPRESSION: No acute abdominopelvic process. Specifically, there is no CT evidence of bowel obstruction. No definite evidence of renal injury, noting that low-grade renal injury as can be difficult to detect without contrast. Renal Ultrasound 01/08/24 10:47 IMPRESSION: 1. Normal kidney sizes. No hydronephrosis. Chest/Abdomen/Pelvis CT 01/12/24 15:08 IMPRESSION: Interval enlargement of the liver, when compared with previous examination. Flattening of the inferior vena cava suggesting severe hypovolemia. Interval development of basilar atelectasis and trace bilateral pleural effusions. No additional findings which represents a change from prior examination performed 01/07/2024. Supportive devices are in good position. Redemonstration of multiple stones within the gallbladder which is not distended. Head CT 01/12/24 15:31 IMPRESSION: 1. 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 2. Large distribution of chronic encephalomalacia in the expected distribution of left middle cerebral artery. Abdomen Ultrasound 01/13/24 09:31 IMPRESSION: 1. Cholelithiasis. 2. Normal liver Doppler. Arterial/Peripheral Duplex 01/13/24 09:31 IMPRESSION: 1. Cholelithiasis. 2. Normal liver Doppler. Venous Doppler Study 01/15/24 17:14 IMPRESSION: 1. Deep vein thrombosis involving left common femoral vein. ADDENDUM: 01/15/24 [id number] I called this result to Apurva cMlean. Abdomen X-Ray 01/16/24 06:03 Impression: NG tube in satisfactory position. IVC Filter Placement X-Ray 01/20/24 06:18 IMPRESSION: Fluoroscopy used during IVC filter insertion. Chest X-Ray 01/27/24 06:13 IMPRESSION: 1. No acute cardiopulmonary disease.
[2024-01-28 11:23] VITALS: BP 114/37; PULSE 96; RESP 24; TEMP 36.7; O2SAT 100
[2024-01-28] MEDS: MORPHINE SULFATE (*CRX) 4 MG/ML INJ IV PUSH (16:51)
[2024-01-28] MEDS: LORazepam INJ (*CRX) 2 MG/ML VIAL IV PUSH ×2 (19:29→21:25)
[2024-01-28 20:59] VITALS: BP 164/78
[2024-01-28 21:34] VITALS: PULSE 100; RESP 24; TEMP 37.1; O2SAT 100
[2024-01-29] MEDS: LORazepam INJ (*CRX) 2 MG/ML VIAL IV PUSH ×4 (01:23→21:07)
[2024-01-29 08:00] VITALS: PULSE 100; RESP 24; O2SAT 100
--- NOTE | 2024-01-29 09:55 | PM.IMPN ---
Progress Note: A&P Assessment and Plan (1) Urinary tract infection: Code(s): N39.0 - Urinary tract infection, site not specified Status: Acute (2) Septic shock: Code(s): A41.9 - Sepsis, unspecified organism; R65.21 - Severe sepsis with septic shock Status: Resolved (3) Insulin dependent diabetes mellitus: Status: Chronic (4) Chronic kidney disease: Code(s): N18.9 - Chronic kidney disease, unspecified Status: Acute (5) Acute on chronic kidney failure: Code(s): N17.9 - Acute kidney failure, unspecified; N18.9 - Chronic kidney disease, unspecified Status: Acute (6) Acute respiratory failure: Code(s): J96.00 - Acute respiratory failure, unspecified whether with hypoxia or hypercapnia Status: Acute Plan (1) Septic shock: Code(s): A41.9 - Sepsis, unspecified organism; R65.21 - Severe sepsis with septic shock Status: Resolved Assessment and Plan: RESOLVED Patient hypotensive on presentation Patient was given IV fluid bolus followed by maintenance IV fluids -lactic acid has improved -Levophed weaned off -off IV fluids -source appears to be UTI. Urine and blood cultures are negative till now, STATUS POST CEFTRIAXONE -status post stress dose steroids - 01/10 continues to have fever although other markers of infection are improved as normal WBC. 01/10: Repeat blood cultures are negative x2 Clark catheter change 01/11 Minimal respiratory secretions, sputum cultures growing yeast which is likely a colonization Change Rocephin to cefepime and vancomycin 01/14: Patient continues to have low-grade fever but overall fever curve is down. White count is normal. CT scan of chest and pelvis does not show any area suggestive of infection. Clark catheter was changed. Procalcitonin level is also on the lower side. Continue cefepime but will discontinue vancomycin at this time. Cultures are negative till now. -lipase was within normal limits -01/15/2024: lower extremity venous Dopplers: Left common femoral vein DVT -01/14: patient was started on heparin infusion OFF all abx 01/18: Remains febrile, patient has been carl cultured this morning, WBC trending up -chest x-ray is not show any new infiltrates -holding antibiotics for now, if patient continues to spike fevers and WBC count increase tomorrow will add antibiotics 01/18: Blood culture growing Gram-positive cocci in clusters 1/2 bottles 01/18: Urine cultures growing Tatiana albicans 01/18: Sputum cultures growing Yeast 01/19: Patient remained febrile with T-max of 101.3. Patient was started on vancomycin, meropenem and micafungin (01/19) which will be continued. Patient afebrile now. 01/26 Comfort care 01/27 Considering transition to hospice care 01/28: Patient is on comfort care, no obvious distress, (2) Stroke: Code(s): I63.9 - Cerebral infarction, unspecified Status: Acute Assessment and Plan: Patient presented with altered mental status but at that time patient was respiratory failure acute renal failure acidosis and sepsis. CT scan on presentation showed only old stroke and encephalomalacia Since then patient has not woken up despite holding sedation for multiple days and dialysis. 01/[address] was done which showed. 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 These are likely secondary to hypotension Echo did not show any thrombus or ASD Continue aspirin and statin Neurology following EEG 01/12 - This is an abnormal EEG due to presence of moderate diffuse background slowing suggested generalized cephalopathy. No significant change in neurological status 01/28 unresponsive to verbal or pain stimuli, (3) Encephalopathy: Code(s): G93.40 - Encephalopathy, unspecified Status: Acute Assessment and Plan: Patient presented with encephalopathy, altered mental status, delirium, confusion -most likely related to uremia, infection, severe acidosis and baseline flow malacia from past stroke TSH and ammonia normal Patient has been off sedation since 01/09/2024. Still not responsive.. Will continue hold sedatives. EEG as above Patient was dialyzed 01/11 to help with drug removal. Minimal improved Encephalopathy likely secondary to strokes. See above. Neurology evaluated the patient Patient has been off sedation since 01/09/2024, has not had any significant improvement in her mental status Ammonia levels are normal 01/11: Repeat CT scan of the brain IMPRESSION: 1. 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 2. Large distribution of chronic encephalomalacia in the expected distribution of left middle cerebral artery. 01/06: CT brain on admission IMPRESSION: 1. No acute intracranial process. 2. 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 3. Additional more diffuse likely age-related mild to moderate diffuse volume loss and mild scattered white matter hypoattenuation consistent with chronic small vessel ischemic disease. (4) Acute respiratory failure: Code(s): J96.00 - Acute respiratory failure, unspecified whether with hypoxia or hypercapnia Status: Acute Assessment and Plan: Patient had an episode of emesis in the ER, given her altered mental status encephalopathy, risk of aspiration with impending respiratory failure patient was intubated on 01/06/2025 -chest x-ray and ABG reviewed -patient was on ASV mode of ventilation but now switch back to CMV due to respiratory rate -sedation is on hold since 01/09/2024 -01/26 ventilator discontinued due to comfort care only (5) Acute kidney failure: Code(s): N17.9 - Acute kidney failure, unspecified Status: Acute Assessment and Plan: On chronic kidney injury, unknown cause, CT of the abdomen and pelvis did not show any hydronephrosis or urinary obstruction -significant lactic acidosis and metabolic acidosis -patient has a history of diabetes, hypertension which is likely the cause of chronic kidney disease -patient on lisinopril hydrochlorothiazide and metformin at home -patient was given a total of 3 L IV fluid bolus, 1 L in the ER and 2 L in the ICU -sodium bicarb IV pushes x4 in the ICU -patient was started on sodium bicarb infusion after discussing with Nephrology, which her was discontinued once hemodialysis was started -patient was started on hemodialysis and was dialyzed x 3 days -patient continues to have decent urine output - 01/11 patient was dialyzed again 1 L fluid was removed -continue to monitor urine output, electrolytes and renal function -01/16: worsening creatinine, increased edema, decreased urine output. Discussed with Nephrology, patient will dialyzed - 01/22 patient would not be dialyzed due to issues with the catheter. Both ports were flushing and rowing but patient were having high pressure limiting flow. Will plan to change catheter today and re-attempt dialysis. 01/23 right IJ dialysis catheter was changed over a wire to a new catheter. At the time placement the catheter was were adequately but during dialysis there were cane issues hence dialysis would not be done - 01/24 I tested the right IJ dialysis catheter and it was drawing and flushing on all 3 ports but was inconsistent. This could be secondary to catheter abutting the wall. Patient always laying with head turned towards left unable to straighten her head without significant force. A new dialysis catheter was placed in right femoral vein after cleaning and disinfecting the area. Catheter had to change again over a guidewire due to issues with flow from 1 port. Patient was eventually dialyzed 01/25 patient was dialyzed 01/26 comfort care only (6) Diastolic dysfunction: Code(s): I51.89 - Other ill-defined heart diseases Status: Acute Assessment and Plan: Echo 01/11 Summary 1. Left ventricular systolic function is normal, estimated at 60-65%. 2. There is moderately increased left ventricular wall thickness. 3. Intact interatrial septum visualized by agitated saline imaging. 4. There is mild aortic valve calcification. 5. There is mild aortic valve stenosis with a peak velocity of 190 cm/s,mean gradient of 8 mmHg, and aortic valve area of 1.8 cm2. 6. There is mild tricuspid valve regurgitation. 7. Mild pulmonary hypertension, estimated pulmonary arterial systolicpressure is 46 mmHg. (7) Insulin dependent diabetes mellitus: Status: Chronic Assessment and Plan: Insulin on hold 01/26 comfort care only (8) Right hemiparesis: Code(s): G81.91 - Hemiplegia, unspecified affecting right dominant side Status: Acute Assessment and Plan: History of left-sided cerebral hemisphere and CVA, residual mild aphasia and right-sided weakness (9) Seizures: Code(s): R56.9 - Unspecified convulsions Status: Acute Assessment and Plan: Patient has a history of seizures, on p.o. Keppra 500 mg p.o. q.12 hours Continue Keppra IV 500 mg IV q.24 EEG negative for any seizure-like activity (10) Hypertension: Code(s): I10 - Essential (primary) hypertension Status: Acute Assessment and Plan: 01/26 comfort care only (11) Anemia: Code(s): D64.9 - Anemia, unspecified Status: Acute Assessment and Plan: 01/16: Patient has been on heparin infusion for DVT in the left common femoral vein. Dropped hemoglobin this morning to 6.7 from 7.8. heparin infusion Discontinued -stool for Hemoccult was Negative -01/17: IVC filter placement by surgery Transfuse if hemoglobin less than 7 01/24 hemoglobin 6.2 transfuse 1 unit PRBC Hemoglobin stable at this time. Now patient on comfort care, unresponsive, no further workup or medical management except medications for comfort care per family request Subjective Date/time seen: 01/29/24 09:55 Interval history: Family opted for comfort care 01/26. Consideration for hospice care 01/27. I saw exam patient today, patient was unresponsive, no obvious distress, patient was afebrile, blood pressure stable, patient had tachycardia tachypnea Exam Narrative: unresponsive to verbal or tactile stimuli and has snoring respirations. Neck without JVD Chest with coarse breath sounds Heart normal S1-S2 with regular rate and no audible murmur tachycardia Abdomen bowel sounds hypoactive soft no palpable mass no obvious tenderness Lungs: Tachypnea Extremities no pitting edema Musculoskeletal no gross deformity Neurologic: no response to verbal or tactile stimuli Objective Data Vital Signs Vital Signs: Vital Signs - 24 hr 01/28/24 11:23 01/28/24 19:38 01/28/24 20:59 Temperature 98.0 F Pulse Rate 96 Respiratory Rate 24 H Blood Pressure 114/37 L 164/78 H Pulse Oximetry 100 Oxygen Delivery Room Air 01/28/24 21:34 Temperature 98.7 F Pulse Rate 100 Respiratory Rate 24 H Blood Pressure Pulse Oximetry 100 Oxygen Delivery Intake/Output Intake/Output: Intake & Output 01/26/24 01/27/24 01/28/24 01/29/24 23:59 23:59 23:59 23:59 Intake Total 2051 818 0 Output Total 1930 450 550 500 Balance 121 368 -550 -500 Meds/Results Medications: Active Medications Generic Name Dose Route Start Last Admin Trade Name Freq PRN Reason Stop Dose Admin Atropine Sulfate 1 - 2 drop 01/27/24 11:53 01/28/24 19:29 Atropine Sulfate 1% Ophth Soln 5 Ml Bottle SUBLINGUAL 2 drop Q4H PRN Administration Secretions Lorazepam 2 mg 01/27/24 11:53 01/29/24 06:32 Lorazepam Inj (*Crx) 2 Mg/Ml Vial IV PUSH 2 mg Q1H PRN Administration Anxiety/Comfort Morphine Sulfate 4 mg 01/27/24 11:53 01/28/24 16:51 Morphine Sulfate (*Crx) 4 Mg/Ml Inj IV PUSH 4 mg Q30M PRN Administration COMFORT Multi-Ingred Cream/Lotion/Oil/Oint 1 applic 01/07/24 21:00 01/28/24 19:37 Mineral Oil/White Petrolatum Ointment EACH EYE 1 applic Q12HR CARMELA Administration Radiology Results: ITS Impressions Abdomen/Pelvis CT 01/07/24 16:52 IMPRESSION: No acute abdominopelvic process. Specifically, there is no CT evidence of bowel obstruction. No definite evidence of renal injury, noting that low-grade renal injury as can be difficult to detect without contrast. Renal Ultrasound 01/08/24 10:47 IMPRESSION: 1. Normal kidney sizes. No hydronephrosis. Chest/Abdomen/Pelvis CT 01/12/24 15:08 IMPRESSION: Interval enlargement of the liver, when compared with previous examination. Flattening of the inferior vena cava suggesting severe hypovolemia. Interval development of basilar atelectasis and trace bilateral pleural effusions. No additional findings which represents a change from prior examination performed 01/07/2024. Supportive devices are in good position. Redemonstration of multiple stones within the gallbladder which is not distended. Head CT 01/12/24 15:31 IMPRESSION: 1. 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 2. Large distribution of chronic encephalomalacia in the expected distribution of left middle cerebral artery. Abdomen Ultrasound 01/13/24 09:31 IMPRESSION: 1. Cholelithiasis. 2. Normal liver Doppler. Arterial/Peripheral Duplex 01/13/24 09:31 IMPRESSION: 1. Cholelithiasis. 2. Normal liver Doppler. Venous Doppler Study 01/15/24 17:14 IMPRESSION: 1. Deep vein thrombosis involving left common femoral vein. ADDENDUM: 01/15/24 0198 I called this result to Apurva Mclean. Abdomen X-Ray 01/16/24 06:03 Impression: NG tube in satisfactory position. IVC Filter Placement X-Ray 01/20/24 06:18 IMPRESSION: Fluoroscopy used during IVC filter insertion. Chest X-Ray 01/27/24 06:13 IMPRESSION: 1. No acute cardiopulmonary disease.
[2024-01-29] MEDS: MINERAL OIL/WHITE PETROLATUM OINTMENT 1 APPLIC EACH EYE ×2 (12:53→20:44)
[2024-01-29] MEDS: MORPHINE SULFATE (*CRX) 4 MG/ML INJ IV PUSH (12:53)
[2024-01-29 14:09] VITALS: BP 139/47; PULSE 101; RESP 24; TEMP 36.5; O2SAT 97
[2024-01-29] MEDS: ATROPINE SULFATE 1% OPHTH SOLN 5 ML BOTTLE SUBLINGUAL ×2 (14:47→21:11)
[2024-01-29 19:46] VITALS: BP 124/52; PULSE 96; RESP 22; TEMP 36.9; O2SAT 92
[2024-01-30] MEDS: LORazepam INJ (*CRX) 2 MG/ML VIAL IV PUSH ×2 (04:18→09:20)
--- NOTE | 2024-01-30 08:08 | PCDIET ---
Patient is comfort care. No further nutritional interventions needed.
[2024-01-30] MEDS: MINERAL OIL/WHITE PETROLATUM OINTMENT 1 APPLIC EACH EYE ×2 (09:21→20:05)
[2024-01-30] MEDS: MORPHINE SULFATE (*CRX) 4 MG/ML INJ IV PUSH (10:44)
--- NOTE | 2024-01-30 15:52 | PM.IMPN ---
Progress Note: A&P Assessment and Plan (1) Urinary tract infection: Code(s): N39.0 - Urinary tract infection, site not specified Status: Acute (2) Septic shock: Code(s): A41.9 - Sepsis, unspecified organism; R65.21 - Severe sepsis with septic shock Status: Resolved (3) Insulin dependent diabetes mellitus: Status: Chronic (4) Chronic kidney disease: Code(s): N18.9 - Chronic kidney disease, unspecified Status: Acute (5) Acute on chronic kidney failure: Code(s): N17.9 - Acute kidney failure, unspecified; N18.9 - Chronic kidney disease, unspecified Status: Acute (6) Acute respiratory failure: Code(s): J96.00 - Acute respiratory failure, unspecified whether with hypoxia or hypercapnia Status: Acute Plan Continue comfort care prior to comfort care, patient was managed thus. (1) Septic shock: Code(s): A41.9 - Sepsis, unspecified organism; R65.21 - Severe sepsis with septic shock Status: Resolved Assessment and Plan: RESOLVED Patient hypotensive on presentation Patient was given IV fluid bolus followed by maintenance IV fluids -lactic acid has improved -Levophed weaned off -off IV fluids -source appears to be UTI. Urine and blood cultures are negative till now, STATUS POST CEFTRIAXONE -status post stress dose steroids - 01/10 continues to have fever although other markers of infection are improved as normal WBC. 01/10: Repeat blood cultures are negative x2 Clark catheter change 01/11 Minimal respiratory secretions, sputum cultures growing yeast which is likely a colonization Change Rocephin to cefepime and vancomycin 01/14: Patient continues to have low-grade fever but overall fever curve is down. White count is normal. CT scan of chest and pelvis does not show any area suggestive of infection. Clark catheter was changed. Procalcitonin level is also on the lower side. Continue cefepime but will discontinue vancomycin at this time. Cultures are negative till now. -lipase was within normal limits -01/15/2024: lower extremity venous Dopplers: Left common femoral vein DVT -01/14: patient was started on heparin infusion OFF all abx 01/18: Remains febrile, patient has been carl cultured this morning, WBC trending up -chest x-ray is not show any new infiltrates -holding antibiotics for now, if patient continues to spike fevers and WBC count increase tomorrow will add antibiotics 01/18: Blood culture growing Gram-positive cocci in clusters 1/2 bottles 01/18: Urine cultures growing Tatiana albicans 01/18: Sputum cultures growing Yeast 01/19: Patient remained febrile with T-max of 101.3. Patient was started on vancomycin, meropenem and micafungin (01/19) which will be continued. Patient afebrile now. 01/26 Comfort care 01/27 Considering transition to hospice care 01/28: Patient is on comfort care, no obvious distress, (2) Stroke: Code(s): I63.9 - Cerebral infarction, unspecified Status: Acute Assessment and Plan: Patient presented with altered mental status but at that time patient was respiratory failure acute renal failure acidosis and sepsis. CT scan on presentation showed only old stroke and encephalomalacia Since then patient has not woken up despite holding sedation for multiple days and dialysis. 01/[address] was done which showed. 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 These are likely secondary to hypotension Echo did not show any thrombus or ASD Continue aspirin and statin Neurology following EEG 01/12 - This is an abnormal EEG due to presence of moderate diffuse background slowing suggested generalized cephalopathy. No significant change in neurological status 01/28 unresponsive to verbal or pain stimuli, (3) Encephalopathy: Code(s): G93.40 - Encephalopathy, unspecified Status: Acute Assessment and Plan: Patient presented with encephalopathy, altered mental status, delirium, confusion -most likely related to uremia, infection, severe acidosis and baseline flow malacia from past stroke TSH and ammonia normal Patient has been off sedation since 01/09/2024. Still not responsive.. Will continue hold sedatives. EEG as above Patient was dialyzed 01/11 to help with drug removal. Minimal improved Encephalopathy likely secondary to strokes. See above. Neurology evaluated the patient Patient has been off sedation since 01/09/2024, has not had any significant improvement in her mental status Ammonia levels are normal 01/11: Repeat CT scan of the brain IMPRESSION: 1. 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 2. Large distribution of chronic encephalomalacia in the expected distribution of left middle cerebral artery. 01/06: CT brain on admission IMPRESSION: 1. No acute intracranial process. 2. 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 3. Additional more diffuse likely age-related mild to moderate diffuse volume loss and mild scattered white matter hypoattenuation consistent with chronic small vessel ischemic disease. (4) Acute respiratory failure: Code(s): J96.00 - Acute respiratory failure, unspecified whether with hypoxia or hypercapnia Status: Acute Assessment and Plan: Patient had an episode of emesis in the ER, given her altered mental status encephalopathy, risk of aspiration with impending respiratory failure patient was intubated on 01/06/2025 -chest x-ray and ABG reviewed -patient was on ASV mode of ventilation but now switch back to CMV due to respiratory rate -sedation is on hold since 01/09/2024 -01/26 ventilator discontinued due to comfort care only (5) Acute kidney failure: Code(s): N17.9 - Acute kidney failure, unspecified Status: Acute Assessment and Plan: On chronic kidney injury, unknown cause, CT of the abdomen and pelvis did not show any hydronephrosis or urinary obstruction -significant lactic acidosis and metabolic acidosis -patient has a history of diabetes, hypertension which is likely the cause of chronic kidney disease -patient on lisinopril hydrochlorothiazide and metformin at home -patient was given a total of 3 L IV fluid bolus, 1 L in the ER and 2 L in the ICU -sodium bicarb IV pushes x4 in the ICU -patient was started on sodium bicarb infusion after discussing with Nephrology, which her was discontinued once hemodialysis was started -patient was started on hemodialysis and was dialyzed x 3 days -patient continues to have decent urine output - 01/11 patient was dialyzed again 1 L fluid was removed -continue to monitor urine output, electrolytes and renal function -01/16: worsening creatinine, increased edema, decreased urine output. Discussed with Nephrology, patient will dialyzed - 01/22 patient would not be dialyzed due to issues with the catheter. Both ports were flushing and rowing but patient were having high pressure limiting flow. Will plan to change catheter today and re-attempt dialysis. 01/23 right IJ dialysis catheter was changed over a wire to a new catheter. At the time placement the catheter was were adequately but during dialysis there were cane issues hence dialysis would not be done - 01/24 I tested the right IJ dialysis catheter and it was drawing and flushing on all 3 ports but was inconsistent. This could be secondary to catheter abutting the wall. Patient always laying with head turned towards left unable to straighten her head without significant force. A new dialysis catheter was placed in right femoral vein after cleaning and disinfecting the area. Catheter had to change again over a guidewire due to issues with flow from 1 port. Patient was eventually dialyzed 01/25 patient was dialyzed 01/26 comfort care only (6) Diastolic dysfunction: Code(s): I51.89 - Other ill-defined heart diseases Status: Acute Assessment and Plan: Echo 01/11 Summary 1. Left ventricular systolic function is normal, estimated at 60-65%. 2. There is moderately increased left ventricular wall thickness. 3. Intact interatrial septum visualized by agitated saline imaging. 4. There is mild aortic valve calcification. 5. There is mild aortic valve stenosis with a peak velocity of 190 cm/s,mean gradient of 8 mmHg, and aortic valve area of 1.8 cm2. 6. There is mild tricuspid valve regurgitation. 7. Mild pulmonary hypertension, estimated pulmonary arterial systolicpressure is 46 mmHg. (7) Insulin dependent diabetes mellitus: Status: Chronic Assessment and Plan: Insulin on hold 01/26 comfort care only (8) Right hemiparesis: Code(s): G81.91 - Hemiplegia, unspecified affecting right dominant side Status: Acute Assessment and Plan: History of left-sided cerebral hemisphere and CVA, residual mild aphasia and right-sided weakness (9) Seizures: Code(s): R56.9 - Unspecified convulsions Status: Acute Assessment and Plan: Patient has a history of seizures, on p.o. Keppra 500 mg p.o. q.12 hours Continue Keppra IV 500 mg IV q.24 EEG negative for any seizure-like activity (10) Hypertension: Code(s): I10 - Essential (primary) hypertension Status: Acute Assessment and Plan: 01/26 comfort care only (11) Anemia: Code(s): D64.9 - Anemia, unspecified Status: Acute Assessment and Plan: 01/16: Patient has been on heparin infusion for DVT in the left common femoral vein. Dropped hemoglobin this morning to 6.7 from 7.8. heparin infusion Discontinued -stool for Hemoccult was Negative -01/17: IVC filter placement by surgery Transfuse if hemoglobin less than 7 01/24 hemoglobin 6.2 transfuse 1 unit PRBC Hemoglobin stable at this time. Continue comfort care Subjective Date/time seen: 01/30/24 15:52 Interval history: Comfortable at bedside Review of Systems Review of Systems: Unable to obtain due to mental status ROS unobtainable: Yes unobtainable due to endotracheal tube, unobtainable due to medical condition and unobtainable due to mental status Exam Narrative: comfortable not disturbed due to coomfort care Objective Data Vital Signs Vital Signs: Vital Signs - 24 hr 01/29/24 19:46 01/29/24 20:00 01/30/24 11:00 Temperature 98.4 F Pulse Rate 96 Respiratory Rate 22 H Blood Pressure 124/52 L Pulse Oximetry 92 Oxygen Delivery Room Air Room Air Intake/Output Intake/Output: Intake & Output 01/27/24 01/28/24 01/29/24 01/30/24 23:59 23:59 23:59 23:59 Intake Total 818 0 Output Total 450 550 500 400 Balance 368 -550 -500 -400 Meds/Results Medications: Active Medications Generic Name Dose Route Start Last Admin Trade Name Freq PRN Reason Stop Dose Admin Atropine Sulfate 1 - 2 drop 01/27/24 11:53 01/29/24 21:11 Atropine Sulfate 1% Ophth Soln 5 Ml Bottle SUBLINGUAL 2 drop Q4H PRN Administration Secretions Lorazepam 2 mg 01/27/24 11:53 01/30/24 09:20 Lorazepam Inj (*Crx) 2 Mg/Ml Vial IV PUSH 2 mg Q1H PRN Administration Anxiety/Comfort Morphine Sulfate 4 mg 01/27/24 11:53 01/30/24 10:44 Morphine Sulfate (*Crx) 4 Mg/Ml Inj IV PUSH 4 mg Q30M PRN Administration COMFORT Multi-Ingred Cream/Lotion/Oil/Oint 1 applic 01/07/24 21:00 01/30/24 09:21 Mineral Oil/White Petrolatum Ointment EACH EYE 1 applic Q12HR CARMELA Administration Radiology Results: ITS Impressions Abdomen/Pelvis CT 01/07/24 16:52 IMPRESSION: No acute abdominopelvic process. Specifically, there is no CT evidence of bowel obstruction. No definite evidence of renal injury, noting that low-grade renal injury as can be difficult to detect without contrast. Renal Ultrasound 01/08/24 10:47 IMPRESSION: 1. Normal kidney sizes. No hydronephrosis. Chest/Abdomen/Pelvis CT 01/12/24 15:08 IMPRESSION: Interval enlargement of the liver, when compared with previous examination. Flattening of the inferior vena cava suggesting severe hypovolemia. Interval development of basilar atelectasis and trace bilateral pleural effusions. No additional findings which represents a change from prior examination performed 01/07/2024. Supportive devices are in good position. Redemonstration of multiple stones within the gallbladder which is not distended. Head CT 01/12/24 15:31 IMPRESSION: 1. 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 2. Large distribution of chronic encephalomalacia in the expected distribution of left middle cerebral artery. Abdomen Ultrasound 01/13/24 09:31 IMPRESSION: 1. Cholelithiasis. 2. Normal liver Doppler. Arterial/Peripheral Duplex 01/13/24 09:31 IMPRESSION: 1. Cholelithiasis. 2. Normal liver Doppler. Venous Doppler Study 01/15/24 17:14 IMPRESSION: 1. Deep vein thrombosis involving left common femoral vein. ADDENDUM: 01/15/24 [id number] I called this result to Apurva Mclean. Abdomen X-Ray 01/16/24 06:03 Impression: NG tube in satisfactory position. IVC Filter Placement X-Ray 01/20/24 06:18 IMPRESSION: Fluoroscopy used during IVC filter insertion. Chest X-Ray 01/27/24 06:13 IMPRESSION: 1. No acute cardiopulmonary disease. Quality VTE Prophylaxis VTE prophylaxis: mechanical ordered and pharmacologic ordered
[2024-01-30 16:00] VITALS: BP 158/75; PULSE 99; TEMP 37.1; O2SAT 92
[2024-01-30 21:38] VITALS: BP 123/48; PULSE 99; RESP 20; TEMP 36.5; O2SAT 93
[2024-01-31] MEDS: LORazepam INJ (*CRX) 2 MG/ML VIAL IV PUSH ×3 (03:53→20:46)
[2024-01-31 07:12] LABS: Basophils Absolute Auto 0.1 K/mm3 (0.0-0.1); Basophils Percent Auto 1.4 % (0.2-1.2); Eosinophils Absolute Auto 0.2 K/mm3 (0-0.3); Eosinophils Percent Auto 2.1 % (0-4.4); Hematocrit 29.8 % (37.0-47.0); Hemoglobin 8.5 g/dL (12.0-15.0); Immature Granulocyte Absolute 0.12 K/mm3 (0.00-0.031); Immature Granulocyte Percent A 1.2 % (0-0.5); Lymphocytes Absolute Auto 1.59 K/mm3 (0.9-3.2); Lymphocytes Percent Auto 15.6 % (18.3-44.2); Mean Corpuscular HGB Conc 28.5 g/dl (32-36); Mean Corpuscular Hemoglobin 28.2 pg (26-34); Mean Platelet Volume 10.6 fl (7.4-10.4); Monocytes Absolute Auto 0.7 K/mm3 (0.1-0.6); Monocytes Percent Auto 7.2 % (2.6-8.5); Neutrophils Absolute Auto 7.4 K/mm3 (1.3-6.7); Neutrophils Percent Auto 72.5 % (45.5-73.1); Platelet Count Result 663 k/mm3 (150-375); Red Blood Count 3.01 M/mm3 (4.2-5.4); Red Cell Distribution Width 17.1 % (11.5-14.5); White Blood Count 10.2 K/mm3 (4.5-10.0)
[2024-01-31 07:38] LABS: Alanine Aminotransferase 168 U/L (6-35); Albumin Level 3.6 g/dL (3.5-5.1); Alkaline Phosphatase 572 U/L (38-126); Anion Gap 27 mmol/L (4-12); Aspartate Amino Transferase 39 U/L (14-36); Bilirubin,Total 0.7 mg/dL (0.2-1.3); Blood Urea Nitrogen 101 mg/dL (7-17); Calcium 8.6 mg/dL (8.4-10.2); Carbon Dioxide 13 mmol/L (22-30); Chloride 105 mmol/L (98-107); Estimated CRCL calculation 11 ml/min; Estimated Glomerular Filt Rate 8; Glucose 215 mg/dL (65-110); Magnesium 2.8 mg/dL (1.6-2.3); Sodium 145 mmol/L (137-145)
[2024-01-31 07:50] LABS: Anisocytosis 1+; Hypochromasia 1+; Large Platelets Present; Platelet Estimate Increased (Adequate); Schistocytes None Seen
[2024-01-31 09:38] VITALS: O2SAT 90
[2024-01-31] MEDS: MORPHINE SULFATE (*CRX) 4 MG/ML INJ IV PUSH (09:38)
[2024-01-31] MEDS: MINERAL OIL/WHITE PETROLATUM OINTMENT 1 APPLIC EACH EYE ×2 (09:48→20:46)
[2024-01-31 09:52] VITALS: BP 142/59; PULSE 97; RESP 16; TEMP 37; O2SAT 90
[2024-01-31] MEDS: MORPHINE 50 MG/NS 100ML (*CRX) 50 MG/100 ML BAG IV CONT (14:55)
--- NOTE | 2024-01-31 15:18 | P.PNIM_ITS ---
Progress Note: A&P Assessment and Plan (1) Urinary tract infection: Code(s): N39.0 - Urinary tract infection, site not specified Status: Acute (2) Septic shock: Code(s): A41.9 - Sepsis, unspecified organism; R65.21 - Severe sepsis with septic shock Status: Resolved (3) Insulin dependent diabetes mellitus: Status: Chronic (4) Chronic kidney disease: Code(s): N18.9 - Chronic kidney disease, unspecified Status: Acute (5) Acute on chronic kidney failure: Code(s): N17.9 - Acute kidney failure, unspecified; N18.9 - Chronic kidney disease, unspecified Status: Acute (6) Acute respiratory failure: Code(s): J96.00 - Acute respiratory failure, unspecified whether with hypoxia or hypercapnia Status: Acute Plan Continue comfort care prior to comfort care, patient was managed thus. (1) Septic shock: Code(s): A41.9 - Sepsis, unspecified organism; R65.21 - Severe sepsis with septic shock Status: Resolved Assessment and Plan: RESOLVED Patient hypotensive on presentation Patient was given IV fluid bolus followed by maintenance IV fluids -lactic acid has improved -Levophed weaned off -off IV fluids -source appears to be UTI. Urine and blood cultures are negative till now, STATUS POST CEFTRIAXONE -status post stress dose steroids - 01/10 continues to have fever although other markers of infection are improved as normal WBC. 01/10: Repeat blood cultures are negative x2 Clark catheter change 01/11 Minimal respiratory secretions, sputum cultures growing yeast which is likely a colonization Change Rocephin to cefepime and vancomycin 01/14: Patient continues to have low-grade fever but overall fever curve is down. White count is normal. CT scan of chest and pelvis does not show any area suggestive of infection. Clark catheter was changed. Procalcitonin level is also on the lower side. Continue cefepime but will discontinue vancomycin at this time. Cultures are negative till now. -lipase was within normal limits -01/15/2024: lower extremity venous Dopplers: Left common femoral vein DVT -01/14: patient was started on heparin infusion OFF all abx 01/18: Remains febrile, patient has been carl cultured this morning, WBC trending up -chest x-ray is not show any new infiltrates -holding antibiotics for now, if patient continues to spike fevers and WBC count increase tomorrow will add antibiotics 01/18: Blood culture growing Gram-positive cocci in clusters 1/2 bottles 01/18: Urine cultures growing Tatiana albicans 01/18: Sputum cultures growing Yeast 01/19: Patient remained febrile with T-max of 101.3. Patient was started on vancomycin, meropenem and micafungin (01/19) which will be continued. Patient afebrile now. 01/26 Comfort care 01/27 Considering transition to hospice care 01/28: Patient is on comfort care, no obvious distress, (2) Stroke: Code(s): I63.9 - Cerebral infarction, unspecified Status: Acute Assessment and Plan: Patient presented with altered mental status but at that time patient was respiratory failure acute renal failure acidosis and sepsis. CT scan on presentation showed only old stroke and encephalomalacia Since then patient has not woken up despite holding sedation for multiple days and dialysis. 01/[address] was done which showed. 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 These are likely secondary to hypotension Echo did not show any thrombus or ASD Continue aspirin and statin Neurology following EEG 01/12 - This is an abnormal EEG due to presence of moderate diffuse background slowing suggested generalized cephalopathy. No significant change in neurological status 01/28 unresponsive to verbal or pain stimuli, (3) Encephalopathy: Code(s): G93.40 - Encephalopathy, unspecified Status: Acute Assessment and Plan: Patient presented with encephalopathy, altered mental status, delirium, confusion -most likely related to uremia, infection, severe acidosis and baseline flow malacia from past stroke TSH and ammonia normal Patient has been off sedation since 01/09/2024. Still not responsive.. Will continue hold sedatives. EEG as above Patient was dialyzed 01/11 to help with drug removal. Minimal improved Encephalopathy likely secondary to strokes. See above. Neurology evaluated the patient Patient has been off sedation since 01/09/2024, has not had any significant improvement in her mental status Ammonia levels are normal 01/11: Repeat CT scan of the brain IMPRESSION: 1. 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 2. Large distribution of chronic encephalomalacia in the expected distribution of left middle cerebral artery. 01/06: CT brain on admission IMPRESSION: 1. No acute intracranial process. 2. 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 3. Additional more diffuse likely age-related mild to moderate diffuse volume loss and mild scattered white matter hypoattenuation consistent with chronic small vessel ischemic disease. (4) Acute respiratory failure: Code(s): J96.00 - Acute respiratory failure, unspecified whether with hypoxia or hypercapnia Status: Acute Assessment and Plan: Patient had an episode of emesis in the ER, given her altered mental status encephalopathy, risk of aspiration with impending respiratory failure patient was intubated on 01/06/2025 -chest x-ray and ABG reviewed -patient was on ASV mode of ventilation but now switch back to CMV due to respiratory rate -sedation is on hold since 01/09/2024 -01/26 ventilator discontinued due to comfort care only (5) Acute kidney failure: Code(s): N17.9 - Acute kidney failure, unspecified Status: Acute Assessment and Plan: On chronic kidney injury, unknown cause, CT of the abdomen and pelvis did not show any hydronephrosis or urinary obstruction -significant lactic acidosis and metabolic acidosis -patient has a history of diabetes, hypertension which is likely the cause of chronic kidney disease -patient on lisinopril hydrochlorothiazide and metformin at home -patient was given a total of 3 L IV fluid bolus, 1 L in the ER and 2 L in the ICU -sodium bicarb IV pushes x4 in the ICU -patient was started on sodium bicarb infusion after discussing with Nephrology, which her was discontinued once hemodialysis was started -patient was started on hemodialysis and was dialyzed x 3 days -patient continues to have decent urine output - 01/11 patient was dialyzed again 1 L fluid was removed -continue to monitor urine output, electrolytes and renal function -01/16: worsening creatinine, increased edema, decreased urine output. Discussed with Nephrology, patient will dialyzed - 01/22 patient would not be dialyzed due to issues with the catheter. Both ports were flushing and rowing but patient were having high pressure limiting flow. Will plan to change catheter today and re-attempt dialysis. 01/23 right IJ dialysis catheter was changed over a wire to a new catheter. At the time placement the catheter was were adequately but during dialysis there were cane issues hence dialysis would not be done - 01/24 I tested the right IJ dialysis catheter and it was drawing and flushing on all 3 ports but was inconsistent. This could be secondary to catheter abutting the wall. Patient always laying with head turned towards left unable to straighten her head without significant force. A new dialysis catheter was placed in right femoral vein after cleaning and disinfecting the area. Catheter had to change again over a guidewire due to issues with flow from 1 port. Patient was eventually dialyzed 01/25 patient was dialyzed 01/26 comfort care only (6) Diastolic dysfunction: Code(s): I51.89 - Other ill-defined heart diseases Status: Acute Assessment and Plan: Echo 01/11 Summary 1. Left ventricular systolic function is normal, estimated at 60-65%. 2. There is moderately increased left ventricular wall thickness. 3. Intact interatrial septum visualized by agitated saline imaging. 4. There is mild aortic valve calcification. 5. There is mild aortic valve stenosis with a peak velocity of 190 cm/s,mean gradient of 8 mmHg, and aortic valve area of 1.8 cm2. 6. There is mild tricuspid valve regurgitation. 7. Mild pulmonary hypertension, estimated pulmonary arterial systolicpressure is 46 mmHg. (7) Insulin dependent diabetes mellitus: Status: Chronic Assessment and Plan: Insulin on hold 01/26 comfort care only (8) Right hemiparesis: Code(s): G81.91 - Hemiplegia, unspecified affecting right dominant side Status: Acute Assessment and Plan: History of left-sided cerebral hemisphere and CVA, residual mild aphasia and right-sided weakness (9) Seizures: Code(s): R56.9 - Unspecified convulsions Status: Acute Assessment and Plan: Patient has a history of seizures, on p.o. Keppra 500 mg p.o. q.12 hours Continue Keppra IV 500 mg IV q.24 EEG negative for any seizure-like activity (10) Hypertension: Code(s): I10 - Essential (primary) hypertension Status: Acute Assessment and Plan: 01/26 comfort care only (11) Anemia: Code(s): D64.9 - Anemia, unspecified Status: Acute Assessment and Plan: 01/16: Patient has been on heparin infusion for DVT in the left common femoral vein. Dropped hemoglobin this morning to 6.7 from 7.8. heparin infusion Discontinued -stool for Hemoccult was Negative -01/17: IVC filter placement by surgery Transfuse if hemoglobin less than 7 01/24 hemoglobin 6.2 transfuse 1 unit PRBC Hemoglobin stable at this time. Continue comfort care Subjective Date/time seen: 01/31/24 15:18 Interval history: Comfortable at bedside continue comfort care Review of Systems Review of Systems: Unable to obtain due to mental status ROS unobtainable: Yes unobtainable due to endotracheal tube, unobtainable due to medical condition and unobtainable due to mental status Exam Narrative: comfortable not disturbed due to coomfort care Objective Data Vital Signs Vital Signs: Vital Signs - 24 hr 01/30/24 16:00 01/30/24 19:53 01/30/24 21:38 Temperature 98.8 F 97.7 F Pulse Rate 99 99 Respiratory Rate 20 Blood Pressure 158/75 H 123/48 L Pulse Oximetry 92 93 Oxygen Delivery Room Air Oxygen Flow Rate 01/31/24 09:52 01/31/24 09:38 Temperature 98.6 F Pulse Rate 97 Respiratory Rate 16 Blood Pressure 142/59 H Pulse Oximetry 90 90 Oxygen Delivery Nasal Cannula Oxygen Flow Rate 2 Intake/Output Intake/Output: Intake & Output 01/28/24 01/29/24 01/30/24 01/31/24 23:59 23:59 23:59 23:59 Intake Total 0 Output Total 550 500 750 200 Balance -550 -500 -750 -200 Meds/Results Medications: Active Medications Generic Name Dose Route Start Last Admin Trade Name Freq PRN Reason Stop Dose Admin Atropine Sulfate 1 - 2 drop 01/27/24 11:53 01/29/24 21:11 Atropine Sulfate 1% Ophth Soln 5 Ml Bottle SUBLINGUAL 2 drop Q4H PRN Administration Secretions Morphine Sulfate 50 mg in 100 mls @ 1 mls/hr 01/31/24 14:00 01/31/24 14:55 IV CONT 0.5 mg/hr .Q24H CARMELA 1 mls/hr Administration 0.5 MG/HR Lorazepam 2 mg 01/27/24 11:53 01/31/24 09:45 Lorazepam Inj (*Crx) 2 Mg/Ml Vial IV PUSH 2 mg Q1H PRN Administration Anxiety/Comfort Morphine Sulfate 4 mg 01/27/24 11:53 01/31/24 09:38 Morphine Sulfate (*Crx) 4 Mg/Ml Inj IV PUSH 4 mg Q30M PRN Administration COMFORT Multi-Ingred Cream/Lotion/Oil/Oint 1 applic 01/07/24 21:00 01/31/24 09:48 Mineral Oil/White Petrolatum Ointment EACH EYE 1 applic Q12HR CARMELA Administration Radiology Results: ITS Impressions Abdomen/Pelvis CT 01/07/24 16:52 IMPRESSION: No acute abdominopelvic process. Specifically, there is no CT evidence of bowel obstruction. No definite evidence of renal injury, noting that low-grade renal injury as can be difficult to detect without contrast. Renal Ultrasound 01/08/24 10:47 IMPRESSION: 1. Normal kidney sizes. No hydronephrosis. Chest/Abdomen/Pelvis CT 01/12/24 15:08 IMPRESSION: Interval enlargement of the liver, when compared with previous examination. Flattening of the inferior vena cava suggesting severe hypovolemia. Interval development of basilar atelectasis and trace bilateral pleural effusions. No additional findings which represents a change from prior examination performed 01/07/2024. Supportive devices are in good position. Redemonstration of multiple stones within the gallbladder which is not distended. Head CT 01/12/24 15:31 IMPRESSION: 1. 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 2. Large distribution of chronic encephalomalacia in the expected distribution of left middle cerebral artery. Abdomen Ultrasound 01/13/24 09:31 IMPRESSION: 1. Cholelithiasis. 2. Normal liver Doppler. Arterial/Peripheral Duplex 01/13/24 09:31 IMPRESSION: 1. Cholelithiasis. 2. Normal liver Doppler. Venous Doppler Study 01/15/24 17:14 IMPRESSION: 1. Deep vein thrombosis involving left common femoral vein. ADDENDUM: 01/15/24 [id number] I called this result to Apurva Mclean. Abdomen X-Ray 01/16/24 06:03 Impression: NG tube in satisfactory position. IVC Filter Placement X-Ray 01/20/24 06:18 IMPRESSION: Fluoroscopy used during IVC filter insertion. Chest X-Ray 01/27/24 06:13 IMPRESSION: 1. No acute cardiopulmonary disease. Labs Labs: Laboratory Results - last 24 hr 01/31/24 06:29 WBC 10.2 H RBC 3.01 L Hgb 8.5 L Hct 29.8 L MCV 99.0 MCH 28.2 MCHC 28.5 L RDW 17.1 H Plt Count 663 H D MPV 10.6 H Immature Gran % (Auto) 1.2 H Neut % (Auto) 72.5 Lymph % (Auto) 15.6 L [place] % (Auto) 7.2 Eos % (Auto) 2.1 Baso % (Auto) 1.4 H Lymph # (Auto) 1.59 [place] # (Auto) 0.7 H Eos # (Auto) 0.2 Baso # (Auto) 0.1 Abs Immat Gran (auto) 0.12 H Absolute Neuts (auto) 7.4 H Absolute Nucleated RBC 0.000 Nucleated RBC % 0.0 Platelet Estimate Increased Large Platelets Present Hypochromasia 1+ Anisocytosis 1+ Schistocytes None seen Sodium 145 Potassium 6.0 H* Chloride 105 Carbon Dioxide 13 L Anion Gap 27 H BUN 101 H D Creatinine 5.60 H Estim Creat Clear Calc 11 Estimated GFR 8 L Glucose 215 H Calcium 8.6 Magnesium 2.8 H Total Bilirubin 0.7 AST 39 H ALT 168 H Alkaline Phosphatase 572 H Total Protein 7.0 Albumin 3.6 Quality VTE Prophylaxis VTE prophylaxis: mechanical ordered and pharmacologic ordered
[2024-01-31 20:00] VITALS: O2SAT 90
[2024-01-31 21:54] VITALS: BP 132/42; PULSE 100; RESP 14; TEMP 36.3; O2SAT 94
[2024-02-01] MEDS: ATROPINE SULFATE 1% OPHTH SOLN 5 ML BOTTLE SUBLINGUAL ×2 (04:12→23:47)
[2024-02-01 08:00] VITALS: BP 148/63; PULSE 104; RESP 16; TEMP 36.7; O2SAT 94
[2024-02-01 08:51] VITALS: O2SAT 92
[2024-02-01] MEDS: MINERAL OIL/WHITE PETROLATUM OINTMENT 1 APPLIC EACH EYE ×2 (08:51→19:56)
--- NOTE | 2024-02-01 15:33 | PM.IMPN ---
Progress Note: A&P Assessment and Plan (1) Urinary tract infection: Code(s): N39.0 - Urinary tract infection, site not specified Status: Acute (2) Septic shock: Code(s): A41.9 - Sepsis, unspecified organism; R65.21 - Severe sepsis with septic shock Status: Resolved (3) Insulin dependent diabetes mellitus: Status: Chronic (4) Chronic kidney disease: Code(s): N18.9 - Chronic kidney disease, unspecified Status: Acute (5) Acute on chronic kidney failure: Code(s): N17.9 - Acute kidney failure, unspecified; N18.9 - Chronic kidney disease, unspecified Status: Acute (6) Acute respiratory failure: Code(s): J96.00 - Acute respiratory failure, unspecified whether with hypoxia or hypercapnia Status: Acute Plan Continue comfort care prior to comfort care, patient was managed thus. (1) Septic shock: Code(s): A41.9 - Sepsis, unspecified organism; R65.21 - Severe sepsis with septic shock Status: Resolved Assessment and Plan: RESOLVED Patient hypotensive on presentation Patient was given IV fluid bolus followed by maintenance IV fluids -lactic acid has improved -Levophed weaned off -off IV fluids -source appears to be UTI. Urine and blood cultures are negative till now, STATUS POST CEFTRIAXONE -status post stress dose steroids - 01/10 continues to have fever although other markers of infection are improved as normal WBC. 01/10: Repeat blood cultures are negative x2 Clark catheter change 01/11 Minimal respiratory secretions, sputum cultures growing yeast which is likely a colonization Change Rocephin to cefepime and vancomycin 01/14: Patient continues to have low-grade fever but overall fever curve is down. White count is normal. CT scan of chest and pelvis does not show any area suggestive of infection. Clark catheter was changed. Procalcitonin level is also on the lower side. Continue cefepime but will discontinue vancomycin at this time. Cultures are negative till now. -lipase was within normal limits -01/15/2024: lower extremity venous Dopplers: Left common femoral vein DVT -01/14: patient was started on heparin infusion OFF all abx 01/18: Remains febrile, patient has been carl cultured this morning, WBC trending up -chest x-ray is not show any new infiltrates -holding antibiotics for now, if patient continues to spike fevers and WBC count increase tomorrow will add antibiotics 01/18: Blood culture growing Gram-positive cocci in clusters 1/2 bottles 01/18: Urine cultures growing Tatiana albicans 01/18: Sputum cultures growing Yeast 01/19: Patient remained febrile with T-max of 101.3. Patient was started on vancomycin, meropenem and micafungin (01/19) which will be continued. Patient afebrile now. 01/26 Comfort care 01/27 Considering transition to hospice care 01/28: Patient is on comfort care, no obvious distress, (2) Stroke: Code(s): I63.9 - Cerebral infarction, unspecified Status: Acute Assessment and Plan: Patient presented with altered mental status but at that time patient was respiratory failure acute renal failure acidosis and sepsis. CT scan on presentation showed only old stroke and encephalomalacia Since then patient has not woken up despite holding sedation for multiple days and dialysis. 01/[address] was done which showed. 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 These are likely secondary to hypotension Echo did not show any thrombus or ASD Continue aspirin and statin Neurology following EEG 01/12 - This is an abnormal EEG due to presence of moderate diffuse background slowing suggested generalized cephalopathy. No significant change in neurological status 01/28 unresponsive to verbal or pain stimuli, (3) Encephalopathy: Code(s): G93.40 - Encephalopathy, unspecified Status: Acute Assessment and Plan: Patient presented with encephalopathy, altered mental status, delirium, confusion -most likely related to uremia, infection, severe acidosis and baseline flow malacia from past stroke TSH and ammonia normal Patient has been off sedation since 01/09/2024. Still not responsive.. Will continue hold sedatives. EEG as above Patient was dialyzed 01/11 to help with drug removal. Minimal improved Encephalopathy likely secondary to strokes. See above. Neurology evaluated the patient Patient has been off sedation since 01/09/2024, has not had any significant improvement in her mental status Ammonia levels are normal 01/11: Repeat CT scan of the brain IMPRESSION: 1. 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 2. Large distribution of chronic encephalomalacia in the expected distribution of left middle cerebral artery. 01/06: CT brain on admission IMPRESSION: 1. No acute intracranial process. 2. 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 3. Additional more diffuse likely age-related mild to moderate diffuse volume loss and mild scattered white matter hypoattenuation consistent with chronic small vessel ischemic disease. (4) Acute respiratory failure: Code(s): J96.00 - Acute respiratory failure, unspecified whether with hypoxia or hypercapnia Status: Acute Assessment and Plan: Patient had an episode of emesis in the ER, given her altered mental status encephalopathy, risk of aspiration with impending respiratory failure patient was intubated on 01/06/2025 -chest x-ray and ABG reviewed -patient was on ASV mode of ventilation but now switch back to CMV due to respiratory rate -sedation is on hold since 01/09/2024 -01/26 ventilator discontinued due to comfort care only (5) Acute kidney failure: Code(s): N17.9 - Acute kidney failure, unspecified Status: Acute Assessment and Plan: On chronic kidney injury, unknown cause, CT of the abdomen and pelvis did not show any hydronephrosis or urinary obstruction -significant lactic acidosis and metabolic acidosis -patient has a history of diabetes, hypertension which is likely the cause of chronic kidney disease -patient on lisinopril hydrochlorothiazide and metformin at home -patient was given a total of 3 L IV fluid bolus, 1 L in the ER and 2 L in the ICU -sodium bicarb IV pushes x4 in the ICU -patient was started on sodium bicarb infusion after discussing with Nephrology, which her was discontinued once hemodialysis was started -patient was started on hemodialysis and was dialyzed x 3 days -patient continues to have decent urine output - 01/11 patient was dialyzed again 1 L fluid was removed -continue to monitor urine output, electrolytes and renal function -01/16: worsening creatinine, increased edema, decreased urine output. Discussed with Nephrology, patient will dialyzed - 01/22 patient would not be dialyzed due to issues with the catheter. Both ports were flushing and rowing but patient were having high pressure limiting flow. Will plan to change catheter today and re-attempt dialysis. 01/23 right IJ dialysis catheter was changed over a wire to a new catheter. At the time placement the catheter was were adequately but during dialysis there were cane issues hence dialysis would not be done - 01/24 I tested the right IJ dialysis catheter and it was drawing and flushing on all 3 ports but was inconsistent. This could be secondary to catheter abutting the wall. Patient always laying with head turned towards left unable to straighten her head without significant force. A new dialysis catheter was placed in right femoral vein after cleaning and disinfecting the area. Catheter had to change again over a guidewire due to issues with flow from 1 port. Patient was eventually dialyzed 01/25 patient was dialyzed 01/26 comfort care only (6) Diastolic dysfunction: Code(s): I51.89 - Other ill-defined heart diseases Status: Acute Assessment and Plan: Echo 01/11 Summary 1. Left ventricular systolic function is normal, estimated at 60-65%. 2. There is moderately increased left ventricular wall thickness. 3. Intact interatrial septum visualized by agitated saline imaging. 4. There is mild aortic valve calcification. 5. There is mild aortic valve stenosis with a peak velocity of 190 cm/s,mean gradient of 8 mmHg, and aortic valve area of 1.8 cm2. 6. There is mild tricuspid valve regurgitation. 7. Mild pulmonary hypertension, estimated pulmonary arterial systolicpressure is 46 mmHg. (7) Insulin dependent diabetes mellitus: Status: Chronic Assessment and Plan: Insulin on hold 01/26 comfort care only (8) Right hemiparesis: Code(s): G81.91 - Hemiplegia, unspecified affecting right dominant side Status: Acute Assessment and Plan: History of left-sided cerebral hemisphere and CVA, residual mild aphasia and right-sided weakness (9) Seizures: Code(s): R56.9 - Unspecified convulsions Status: Acute Assessment and Plan: Patient has a history of seizures, on p.o. Keppra 500 mg p.o. q.12 hours Continue Keppra IV 500 mg IV q.24 EEG negative for any seizure-like activity (10) Hypertension: Code(s): I10 - Essential (primary) hypertension Status: Acute Assessment and Plan: 01/26 comfort care only (11) Anemia: Code(s): D64.9 - Anemia, unspecified Status: Acute Assessment and Plan: 01/16: Patient has been on heparin infusion for DVT in the left common femoral vein. Dropped hemoglobin this morning to 6.7 from 7.8. heparin infusion Discontinued -stool for Hemoccult was Negative -01/17: IVC filter placement by surgery Transfuse if hemoglobin less than 7 01/24 hemoglobin 6.2 transfuse 1 unit PRBC Hemoglobin stable at this time. Continue comfort care Subjective Date/time seen: 02/01/24 15:33 Interval history: Comfortable at bedside continue comfort care Review of Systems Review of Systems: Unable to obtain due to mental status ROS unobtainable: Yes unobtainable due to endotracheal tube, unobtainable due to medical condition and unobtainable due to mental status Exam Narrative: comfortable not disturbed due to coomfort care Objective Data Vital Signs Vital Signs: Vital Signs - 24 hr 01/31/24 20:00 01/31/24 21:54 02/01/24 08:00 Temperature 97.4 F L 98.1 F Pulse Rate 100 104 H Respiratory Rate 14 16 Blood Pressure 132/42 L 148/63 H Pulse Oximetry 90 94 94 Oxygen Delivery Nasal Cannula Oxygen Flow Rate 2 02/01/24 08:51 Temperature Pulse Rate Respiratory Rate Blood Pressure Pulse Oximetry 92 Oxygen Delivery Nasal Cannula Oxygen Flow Rate 2 Intake/Output Intake/Output: Intake & Output 01/29/24 01/30/24 01/31/24 02/01/24 23:59 23:59 23:59 23:59 Intake Total 0 Output Total 500 750 250 400 Balance -500 -750 -250 -400 Meds/Results Medications: Active Medications Generic Name Dose Route Start Last Admin Trade Name Freq PRN Reason Stop Dose Admin Atropine Sulfate 1 - 2 drop 01/27/24 11:53 02/01/24 04:12 Atropine Sulfate 1% Ophth Soln 5 Ml Bottle SUBLINGUAL 1 drop Q4H PRN Administration Secretions Morphine Sulfate 50 mg in 100 mls @ 1 mls/hr 01/31/24 14:00 01/31/24 14:55 IV CONT 0.5 mg/hr .Q24H CARMELA 1 mls/hr Administration 0.5 MG/HR Lorazepam 2 mg 01/27/24 11:53 01/31/24 20:46 Lorazepam Inj (*Crx) 2 Mg/Ml Vial IV PUSH 2 mg Q1H PRN Administration Anxiety/Comfort Morphine Sulfate 4 mg 01/27/24 11:53 01/31/24 09:38 Morphine Sulfate (*Crx) 4 Mg/Ml Inj IV PUSH 4 mg Q30M PRN Administration COMFORT Multi-Ingred Cream/Lotion/Oil/Oint 1 applic 01/07/24 21:00 02/01/24 08:51 Mineral Oil/White Petrolatum Ointment EACH EYE 1 applic Q12HR CARMELA Administration Radiology Results: ITS Impressions Abdomen/Pelvis CT 01/07/24 16:52 IMPRESSION: No acute abdominopelvic process. Specifically, there is no CT evidence of bowel obstruction. No definite evidence of renal injury, noting that low-grade renal injury as can be difficult to detect without contrast. Renal Ultrasound 01/08/24 10:47 IMPRESSION: 1. Normal kidney sizes. No hydronephrosis. Chest/Abdomen/Pelvis CT 01/12/24 15:08 IMPRESSION: Interval enlargement of the liver, when compared with previous examination. Flattening of the inferior vena cava suggesting severe hypovolemia. Interval development of basilar atelectasis and trace bilateral pleural effusions. No additional findings which represents a change from prior examination performed 01/07/2024. Supportive devices are in good position. Redemonstration of multiple stones within the gallbladder which is not distended. Head CT 01/12/24 15:31 IMPRESSION: 1. 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 2. Large distribution of chronic encephalomalacia in the expected distribution of left middle cerebral artery. Abdomen Ultrasound 01/13/24 09:31 IMPRESSION: 1. Cholelithiasis. 2. Normal liver Doppler. Arterial/Peripheral Duplex 01/13/24 09:31 IMPRESSION: 1. Cholelithiasis. 2. Normal liver Doppler. Venous Doppler Study 01/15/24 17:14 IMPRESSION: 1. Deep vein thrombosis involving left common femoral vein. ADDENDUM: 01/15/24 1882 I called this result to Apurva Mclean. Abdomen X-Ray 01/16/24 06:03 Impression: NG tube in satisfactory position. IVC Filter Placement X-Ray 01/20/24 06:18 IMPRESSION: Fluoroscopy used during IVC filter insertion. Chest X-Ray 01/27/24 06:13 IMPRESSION: 1. No acute cardiopulmonary disease. Quality VTE Prophylaxis VTE prophylaxis: mechanical ordered and pharmacologic ordered
[2024-02-01] MEDS: MORPHINE SULFATE (*CRX) 4 MG/ML INJ IV PUSH (16:32)
[2024-02-01] MEDS: MORPHINE 50 MG/NS 100ML (*CRX) 50 MG/100 ML BAG IV CONT (16:38)
[2024-02-01] MEDS: LORazepam INJ (*CRX) 2 MG/ML VIAL IV PUSH (23:46)
--- NOTE | 2024-02-02 03:27 | PC.NURSE ---
The[employer] contacted hospitalist, Christianne Gong by phone at [phone] and notified her of patients .
--- NOTE | 2024-02-02 04:58 | PC.NURSE ---
During 0300 rounds pt was found .
--- NOTE | 2024-02-02 05:01 | PC.NURSE ---
Several attempts to reach family with no answer. [place] police dept went to address on file for son/ and they stated that it appears to be a vacant trailer. [facility] Police dept called to go to pt address on file. Pt son returned call and will be coming in.
--- NOTE | 2024-02-02 07:59 | PM.DDS ---
Discharge Summary Date and Time Date of : 02/02/24 Time of : 03:05 Provider Pronounced By: 2 RNs Name of First RN That Pronounced: Sveta Leyva RN Name of Second RN That Pronounced: Sveta Shelton Probable Cause of Probable Cause of : Stroke Septic Shock Urinary tract infection Acute renal failure Summary Hospital Course: This is a 63-year-old female with history of stroke, insulin-dependent diabetes, hypertension, hyperlipidemia, chronic kidney disease, anemia chronic disease, depression, and anxiety who presented to the emergency department via private vehicle accompanied by her son for evaluation of confusion. She is currently intubated on mechanical ventilation and is unable to provide history. As such the following is obtained via a review of her electronic medical records as well as information provided by her son. She is primarily [place]-speaking. It is my understanding that she was in her usual state of health when she went to bed last night at around 20:30 however reports that he was up with her a majority of the night as she had difficulty sleeping for unclear reasons. She woke at about 08:00 and has reportedly not been acting right and has been delirious since that time. The patient has aphasia from her previous stroke but they are typically able to understand what she is trying to say however today her speech was much more slurred and difficult to understand. There are no reports of patient complaints, sick contacts, fever, cold and flu symptoms, vomiting, or diarrhea. In the ED: Vital signs on arrival include a temperature 97.6?, blood pressure 123/45, pulse 68, respiratory rate 14, SpO2 98% on room air. She had an episode of emesis not long after arrival after which she became unresponsive and she was intubated. ABG showed a pH of 6.940, pCO2 15.8, PO2 135, HC03 to 3.3. Labs were significant for WBC count of 12.3, hemoglobin 8.1, INR 1.4, sodium 136, potassium 5.7, chloride 99, carbon dioxide less than 5, BUN 70, creatinine 8.90, glucose 129, beta hydroxybutyrate 7.59. Urinalysis was positive for 2+ protein, trace ketones, 3+ leukocyte esterase, greater than 100 WBC, and 4+ bacteria. Urine drug screen was negative. She was given piperacillin/tazobactam 3.375 g, 1 L normal saline bolus, as well as appropriate treatment for hyperkalemia to include 1 amp of sodium bicarbonate, insulin 10 units IV, dextrose 25 g IV, calcium gluconate 1000 mg IV, albuterol 10 mg. Patient was managed for septic shock from UTI, was placed on Vancomycin, Meropenem, and Micafungin. However on 01/11 CT head showed extensive bilateral acute infarcts, EEG showed generalized encephalopathy. Following the extensive stroke, patient's family decided to transition to comfort care. Patient was transitioned to comfort care and she passed at 03.05 02/02/24. Topical management prior to comfort care: Assessment and Plan (1) Urinary tract infection: Code(s): N39.0 - Urinary tract infection, site not specified Status: Acute (2) Septic shock: Code(s): A41.9 - Sepsis, unspecified organism; R65.21 - Severe sepsis with septic shock Status: Resolved (3) Insulin dependent diabetes mellitus: Status: Chronic (4) Chronic kidney disease: Code(s): N18.9 - Chronic kidney disease, unspecified Status: Acute (5) Acute on chronic kidney failure: Code(s): N17.9 - Acute kidney failure, unspecified; N18.9 - Chronic kidney disease, unspecified Status: Acute (6) Acute respiratory failure: Code(s): J96.00 - Acute respiratory failure, unspecified whether with hypoxia or hypercapnia Status: Acute Plan Continue comfort care prior to comfort care, patient was managed thus. (1) Septic shock: Code(s): A41.9 - Sepsis, unspecified organism; R65.21 - Severe sepsis with septic shock Status: Resolved Assessment and Plan: RESOLVED Patient hypotensive on presentation Patient was given IV fluid bolus followed by maintenance IV fluids -lactic acid has improved -Levophed weaned off -off IV fluids -source appears to be UTI. Urine and blood cultures are negative till now, STATUS POST CEFTRIAXONE -status post stress dose steroids - 01/10 continues to have fever although other markers of infection are improved as normal WBC. 01/10: Repeat blood cultures are negative x2 Clark catheter change 01/11 Minimal respiratory secretions, sputum cultures growing yeast which is likely a colonization Change Rocephin to cefepime and vancomycin 01/14: Patient continues to have low-grade fever but overall fever curve is down. White count is normal. CT scan of chest and pelvis does not show any area suggestive of infection. Clark catheter was changed. Procalcitonin level is also on the lower side. Continue cefepime but will discontinue vancomycin at this time. Cultures are negative till now. -lipase was within normal limits -01/15/2024: lower extremity venous Dopplers: Left common femoral vein DVT -01/14: patient was started on heparin infusion OFF all abx 01/18: Remains febrile, patient has been carl cultured this morning, WBC trending up -chest x-ray is not show any new infiltrates -holding antibiotics for now, if patient continues to spike fevers and WBC count increase tomorrow will add antibiotics 01/18: Blood culture growing Gram-positive cocci in clusters 1/2 bottles 01/18: Urine cultures growing Tatiana albicans 01/18: Sputum cultures growing Yeast 01/19: Patient remained febrile with T-max of 101.3. Patient was started on vancomycin, meropenem and micafungin (01/19) which will be continued. Patient afebrile now. 01/26 Comfort care 01/27 Considering transition to hospice care 01/28: Patient is on comfort care, no obvious distress, (2) Stroke: Code(s): I63.9 - Cerebral infarction, unspecified Status: Acute Assessment and Plan: Patient presented with altered mental status but at that time patient was respiratory failure acute renal failure acidosis and sepsis. CT scan on presentation showed only old stroke and encephalomalacia Since then patient has not woken up despite holding sedation for multiple days and dialysis. 01/[address] was done which showed. 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 These are likely secondary to hypotension Echo did not show any thrombus or ASD Continue aspirin and statin Neurology following EEG 01/12 - This is an abnormal EEG due to presence of moderate diffuse background slowing suggested generalized cephalopathy. No significant change in neurological status 01/28 unresponsive to verbal or pain stimuli, (3) Encephalopathy: Code(s): G93.40 - Encephalopathy, unspecified Status: Acute Assessment and Plan: Patient presented with encephalopathy, altered mental status, delirium, confusion -most likely related to uremia, infection, severe acidosis and baseline flow malacia from past stroke TSH and ammonia normal Patient has been off sedation since 01/09/2024. Still not responsive.. Will continue hold sedatives. EEG as above Patient was dialyzed 01/11 to help with drug removal. Minimal improved Encephalopathy likely secondary to strokes. See above. Neurology evaluated the patient Patient has been off sedation since 01/09/2024, has not had any significant improvement in her mental status Ammonia levels are normal 01/11: Repeat CT scan of the brain IMPRESSION: 1. 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 2. Large distribution of chronic encephalomalacia in the expected distribution of left middle cerebral artery. 01/06: CT brain on admission IMPRESSION: 1. No acute intracranial process. 2. 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 3. Additional more diffuse likely age-related mild to moderate diffuse volume loss and mild scattered white matter hypoattenuation consistent with chronic small vessel ischemic disease. (4) Acute respiratory failure: Code(s): J96.00 - Acute respiratory failure, unspecified whether with hypoxia or hypercapnia Status: Acute Assessment and Plan: Patient had an episode of emesis in the ER, given her altered mental status encephalopathy, risk of aspiration with impending respiratory failure patient was intubated on 01/06/2025 -chest x-ray and ABG reviewed -patient was on ASV mode of ventilation but now switch back to CMV due to respiratory rate -sedation is on hold since 01/09/2024 -01/26 ventilator discontinued due to comfort care only (5) Acute kidney failure: Code(s): N17.9 - Acute kidney failure, unspecified Status: Acute Assessment and Plan: On chronic kidney injury, unknown cause, CT of the abdomen and pelvis did not show any hydronephrosis or urinary obstruction -significant lactic acidosis and metabolic acidosis -patient has a history of diabetes, hypertension which is likely the cause of chronic kidney disease -patient on lisinopril hydrochlorothiazide and metformin at home -patient was given a total of 3 L IV fluid bolus, 1 L in the ER and 2 L in the ICU -sodium bicarb IV pushes x4 in the ICU -patient was started on sodium bicarb infusion after discussing with Nephrology, which her was discontinued once hemodialysis was started -patient was started on hemodialysis and was dialyzed x 3 days -patient continues to have decent urine output - 01/11 patient was dialyzed again 1 L fluid was removed -continue to monitor urine output, electrolytes and renal function -01/16: worsening creatinine, increased edema, decreased urine output. Discussed with Nephrology, patient will dialyzed - 01/22 patient would not be dialyzed due to issues with the catheter. Both ports were flushing and rowing but patient were having high pressure limiting flow. Will plan to change catheter today and re-attempt dialysis. 01/23 right IJ dialysis catheter was changed over a wire to a new catheter. At the time placement the catheter was were adequately but during dialysis there were cane issues hence dialysis would not be done - 01/24 I tested the right IJ dialysis catheter and it was drawing and flushing on all 3 ports but was inconsistent. This could be secondary to catheter abutting the wall. Patient always laying with head turned towards left unable to straighten her head without significant force. A new dialysis catheter was placed in right femoral vein after cleaning and disinfecting the area. Catheter had to change again over a guidewire due to issues with flow from 1 port. Patient was eventually dialyzed 01/25 patient was dialyzed 01/26 comfort care only (6) Diastolic dysfunction: Code(s): I51.89 - Other ill-defined heart diseases Status: Acute Assessment and Plan: Echo 01/11 Summary 1. Left ventricular systolic function is normal, estimated at 60-65%. 2. There is moderately increased left ventricular wall thickness. 3. Intact interatrial septum visualized by agitated saline imaging. 4. There is mild aortic valve calcification. 5. There is mild aortic valve stenosis with a peak velocity of 190 cm/s,mean gradient of 8 mmHg, and aortic valve area of 1.8 cm2. 6. There is mild tricuspid valve regurgitation. 7. Mild pulmonary hypertension, estimated pulmonary arterial systolicpressure is 46 mmHg. (7) Insulin dependent diabetes mellitus: Status: Chronic Assessment and Plan: Insulin on hold 01/26 comfort care only (8) Right hemiparesis: Code(s): G81.91 - Hemiplegia, unspecified affecting right dominant side Status: Acute Assessment and Plan: History of left-sided cerebral hemisphere and CVA, residual mild aphasia and right-sided weakness (9) Seizures: Code(s): R56.9 - Unspecified convulsions Status: Acute Assessment and Plan: Patient has a history of seizures, on p.o. Keppra 500 mg p.o. q.12 hours Continue Keppra IV 500 mg IV q.24 EEG negative for any seizure-like activity (10) Hypertension: Code(s): I10 - Essential (primary) hypertension Status: Acute Assessment and Plan: 01/26 comfort care only (11) Anemia: Code(s): D64.9 - Anemia, unspecified Status: Acute Assessment and Plan: 01/16: Patient has been on heparin infusion for DVT in the left common femoral vein. Dropped hemoglobin this morning to 6.7 from 7.8. heparin infusion Discontinued -stool for Hemoccult was Negative -01/17: IVC filter placement by surgery Transfuse if hemoglobin less than 7 01/24 hemoglobin 6.2 transfuse 1 unit PRBC Hemoglobin stable at this time. Additional Data Confirmation of as documented by pronouncing clinician: Pupillary Reflex, Palpable Pulses, Response to Stimuli, Heart Tones and Breath Sounds Name of Provider Notified: Farideh Time Provider Notified: 03:09 Provider Requests Autopsy: No Family Requests Autopsy: No Risk Reduction Counselor Notified: Yes Date [facility] Notified of : 02/02/[address] [facility] Notified of : 03:25
--- NOTE | 2024-02-02 09:55 | PC.NURSE ---
Argenis from [facility] called and released body not a candidate for donation
== END 2024-02-02 03:05 | disposition expired | DRG 720 ==
LOC: ANHED 15:10 → ANHICU 17:40 → ANH3MED 01-27 14:49
PROVIDERS: Internal Medicine; Internal Medicine Nephrology; Physician Assistant; Surgery; Admitting Provider Internal Medicine; Emergency Provider General Practice; PCP Physician Assistant; Visit Provider Internal Medicine
PROC: 06H03DZ Insertion of Intraluminal Device into Inferior Vena Cava, Percutaneous Approach (ICD-10-PCS; principal; 2024-01-18 08:30)
DX: A41.9 Sepsis, unspecified organism (principal); R65.21 Severe sepsis with septic shock; N39.0 Urinary tract infection, site not specified; J96.00 Acute respiratory failure, unspecified whether with hypoxia or hypercapnia; N17.0 Acute kidney failure with tubular necrosis; E87.21 Acute metabolic acidosis; I12.9 Hypertensive chronic kidney disease with stage 1 through stage 4 chronic kidney disease, or unspecified chronic kidney disease; I63.89 Other cerebral infarction; E11.22 Type 2 diabetes mellitus with diabetic chronic kidney disease; N18.9 Chronic kidney disease, unspecified; D63.8 Anemia in other chronic diseases classified elsewhere; E87.5 Hyperkalemia; I51.89 Other ill-defined heart diseases; I69.351 Hemiplegia and hemiparesis following cerebral infarction affecting right dominant side; I69.320 Aphasia following cerebral infarction; B37.49 Other urogenital candidiasis; I82.412 Acute embolism and thrombosis of left femoral vein; T82.41XA Breakdown (mechanical) of vascular dialysis catheter, initial encounter; F41.8 Other specified anxiety disorders; T38.3X5A Adverse effect of insulin and oral hypoglycemic [antidiabetic] drugs, initial encounter; E78.5 Hyperlipidemia, unspecified; Z90.710 Acquired absence of both cervix and uterus; Z79.84 Long term (current) use of oral hypoglycemic drugs; R56.9 Unspecified convulsions; Z20.822 Contact with and (suspected) exposure to COVID-19; G93.49 Other encephalopathy; I69.398 Other sequelae of cerebral infarction; B37.89 Other sites of candidiasis; Z66 Do not resuscitate
CPT/HCPCS: 31500; 36415; 36430; 36600; 37191; 70450; 71045; 71250; 74176; 76705; 76775; 80048; 80053; 80069; 80074; 80143; 80177; 80179; 80202; 80307; 81001; 81050; 82010; 82140; 82274; 82375; 82550; 82565; 82570; 82607; 82728; 82746; 82805; 82948; 83036; 83050; 83540; 83550; 83605; 83690; 83735; 84100; 84145; 84156; 84300; 84443; 84484; 84540; 85018; 85025; 85027; 85049; 85380; 85384; 85610; 85730; 85999; 86140; 86706; 86850; 86900; 86901; 86920; 86923; 87040; 87070; 87086; 87181; 87205; 87340; 87636; 87641; 93005; 93306; 93970; 93976; 94002; 94003; 94640; 95816; 96365; 96366; 96367; 96375; 99291; A9270; C1751; C1752; C1880; C1894; G0257; J0330; J0612; J0613; J0692; J0696; J1644; J1720; J1815; J1953; J2003; J2060; J2185; J2248; J2250; J2270; J2470; J2543; J2704; J2997; J3010; J3370; J3475; J7030; J7050; J7120; P9016; P9047; Q4081; Q5105